=== PATIENT | female | born 1960 | race Caucasian/White ===

== ENCOUNTER 2016-06-08 13:36 | Inpatient (IN) | payer OTHER, MEDICAID ==
[~2016-06-08] VITALS: Ht 172.7 cm; Wt 109.3 kg
[~2016-06-08 13:36] MED LIST: ALBU2.5V4 IH; ALBU8.5H2 IH; AMIL5TAB2 PO; AMPH30TA3 PO; ARIP10TA14 PO; ASCO-294 PO; CALC600T85 PO; CHRO200C PO; CYAN3000 SL; DULO60CA42 PO; FENO48TA4 PO; FLUO40CA12 PO; FLUT16SP NS; FORM12CA IH; FRSM80T PO; HYDR4TAB PO; HYDR50TA3 PO; INSU100I18 SUBQ; INSU500V SQ; INSU500V SUBQ; IPRA3AMP IH; LAMO200T2 PO; LORA10TA7 PO; MULT-1007 PO; NAPH15DR BOTH_EYES; OMEP20TA24 PO; OXYM30SP NS; POTA20PA3 PO; PREG200C PO; PROG200C7 PO; PROP15DR BOTH_EYES; ROPI PO; SIMV80TA4 PO; TIOT18CA3 IH; TOPI50TA88 PO; WARF7.5T4 PO; ZINC50TA4 PO
[2016-06-08 13:55] VITALS: BP 96/66; PULSE 92; RESP 40; O2SAT 100
--- NOTE | 2016-06-08 15:38 | ED.REPORT ---
HPI-Dyspnea / Wheezing Date of Service Jun 08, 2016 ED Provider: Maxi Mccain MD A 55 year old female with a history of asthma, COPD, CHF, diabetes mellitus, upper extremity DVT, restless leg syndrome and diabetic neuropathy presents to the ED complaining of SOB that began approx. one week ago. Associated symptoms include pleuritic chest pain that is exacerbated by cough and deep breath. Patient has taken levothyroxine, one course of Cipro, 20 mg prednisone 1x per day and multiple nebulizer treatments with no relief. Her symptoms have been constant since onset. Patient takes Symbicort regularly. Nursing Notes Stated Complaint: BREATHING ISSUES/CHF Chief Complaint: Respiratory Distress Nursing Notes Reviewed: Yes Allergies: Coded Allergies: Contrast Media (Verified Allergy, Severe, Anaphylaxis, 06/28/14) Sulfa (Sulfonamide Antibiotics) (Verified Allergy, Severe, Rash,Itching, SOB, 06/28/14) iodine (Verified Allergy, Severe, UNSPEC, 06/28/14) topical iodine causes rash ketorolac (Verified Allergy, Severe, 06/28/14) paranoia per pt meperidine (Verified Allergy, Severe, UNSPEC, 06/28/14) paranoia and asthma povidone (Verified Allergy, Severe, 06/28/14) cefazolin sodium (Verified Allergy, Intermediate, Rash,Itching,SOB, ) shellfish derived (Verified Allergy, Unknown, 06/28/14) asthma, rash from food Uncoded Allergies: FRAGRANCES (Allergy, Unknown, 04/17/06) SEAFOOD (Allergy, Unknown, 07/10/03) Scheduled Amphet Asp/Amphet/D-Amphet (Adderall) 30 Mg Tablet 30 MG PO BID Ascorbate Calcium (Vitamin C) 500 Mg Tablet 500 MG PO TID Budesonide/Formoterol 160-4.5 mcg Inh (Symbicort 160-4.5 mcg Inh) 120 Puff Inhaler 2 PUFF INHALATION BID Calcium Carbonate (Caltrate 600) 600 Mg Tablet 600 MG PO DAILY Chromium Picolinate (Chromium Picolinate) 200 Mcg Capsule Unknown Dose PO DAILY Duloxetine (Cymbalta) 60 Mg Capsule.dr 60 MG PO HS Fluoxetine (Prozac) 40 Mg Capsule 40 MG PO QAM Furosemide (Furosemide) 80 Mg Tab 120 MG PO AM Hydrochlorothiazide (Hydrochlorothiazide) 50 Mg Tablet 50 MG PO QAM Insulin Lispro (HumaLOG U100 Insulin Pen) 100 Unit/1 Ml Insuln.pen 5-30 UNIT SUBQ TID-INSULIN sliding scale Insulin Regular, Human (HUMulin-R U-500 Insulin Vial) 500 Unit/1 Ml Vial 0.36 ML SQ with breakfast Insulin Regular, Human (HUMulin-R U-500 Insulin Vial) 500 Unit/1 Ml Vial 0.27 ML SUBQ BIDLS Ipratropium/Albuterol Sulfate (Iprat-Albut 0.5-3(2.5) mg/3 mL Inhalant Soln) 3 Ml Ampul.neb 3 ML IH TID Lamotrigine (Lamotrigine) 200 Mg Tablet 400 MG PO BID Lisdexamfetamine Dimesylate (Vyvanse) 70 Mg Capsule 70 MG PO DAILY Loratadine (Loratadine) 10 Mg Tablet 10 MG PO QAM Multivitamin (Multi-Vitamin Daily) 1 Each Tablet 1 EACH PO DAILY Omeprazole Magnesium (Prilosec Otc) 20 Mg Tablet.dr 40 MG PO BID Potassium Chloride Powder (Klor-Con Powder) 20 Meq Packet 40 MEQ PO TID AM, 3pm, and bedtime. DISSOLVE CONTENTS OF ONE PACKET IN FULL GLASS OF WATER AND DRINK. Pregabalin (Lyrica) 200 Mg Capsule 200 MG PO TID Propylene Glycol/Peg 400 (Systane 0.3-0.4% Eye Drops) 15 Ml Drops 2 DRP BOTH_ EYES Q4-6H Ropinirole (Requip) 3 Mg Tablet 6 MG PO HS Simvastatin (Simvastatin) 80 Mg Tablet 80 MG PO HS Tiotropium [place] (Spiriva) 18 Mcg Cap.w.dev 18 MCG IH HS Topiramate (Topiramate) 50 Mg Tablet 50 MG PO BID Zinc Gluconate (Zinc) 50 Mg Tablet 50 MG PO DAILY Scheduled PRN Albuterol HFA (Proair HFA) 8.5 Gm Hfa.aer.ad 2 PUFFS IH Q4-6H PRN PRN For Shortness of Breath Albuterol Neb Soln (Albuterol Neb Soln) 2.5 Mg/3 Ml Vial.neb 2.5 MG IH Q2 PRN PRN For Shortness of Breath Fenofibrate Nanocrystallized (Fenofibrate) 48 Mg Tablet 48 MG PO AM PRN PRN allergy relief Fluticasone Propionate (Fluticasone Propionate Nasal) 16 Gm Soldier.susp 2 SPRAY NS HS PRN PRN allergy symptoms Naphazoline HCl/Pheniramine (Naphcon-A Eye Drops) 225 Drop/15 Ml Ophsoln 2 DROP BOTH_EYES BID PRN PRN For Eye Irritation Oxymetazoline HCl (Afrin) 30 Ml Soldier 1-2 SPRAY NS BID PRN PRN For Congestion Maxium 3 day use. General Time Seen by MD: 15:36 Chief Complaint Shortness of breath Hx Obtained From: Patient Arrived By: Walk-in Sudden in Onset?: No Onset Occurred: 1 week ago Symptom Duration: Since onset Location: : Chest left: Chest right Quality: Pleuritic Radiation: : Does not radiate Severity: Current: Mild Severity: Maximum: Moderate Associated with: Reports: Chest pain, Cough Pertinent Negative: Pt denies other symptoms Exacerbated by: Cough, Deep breath Pertinent Negative: Relieved by nothing Recent Healthcare: No recent hospitalization, Recent doctor visit Past Medical History Past Medical History Notes: PCP: Dr. Esteban Mitchell Past Medical History 1. Upper extremity DVT secondary to PICC line, treated with warfarin 2. Restless leg syndrome 3. Diabetic neuropathy 4. Diabetes mellitus 5. [place] 6. COPD 7. CHF 8. GERD 9. Bilateral drop foot 10. osteoarthritis 11. Osteomyelitis 12. binasal hemianopsia 13. sleep apnea 14. Admit sepsis from diabetic foot June 2014 15. bipolar disorder 16. Review of seizure disorder Past Surgical History left knee left shoulder Right shoulder x2 laminectomy L4-L5 in 1994 Laminectomy L4-L5 in 2010 Laminectomy C5 C6 C6 09/07/2009, infusion later in 2009 Laminectomy T11-T12 in 2010 Jayce fundoplication 1995 Smoking History Never Smoker Social History Alcohol Use: "Social" Drug Use: Denies drug use Other Social History: Good social support, Local resident Ambulatory Status Independent Review of Systems Constitutional: Denies: Chills, Fever Respiratory: Reports: Non-productive cough, Shortness of breath Cardiovascular: Reports: Chest pain Complete sys rev & neg: except as marked. GI: Denies: Nausea, Vomiting Neurologic: Denies: Change LOC Physical Exam Initial Vital Signs Vital Signs (First) Date Time Temp Pulse Resp B/P Pulse Ox O2 Delivery O2 Flow Rate FiO2 06/08/16 13:55 36.4 92 40 96/66 100 Nasal Cannula 06/08/16 16:25 2 Initial VS: Reviewed Head / Eyes: Atraumatic, Normocephalic, PERRL Extremities: Vascular intact, Neuro intact, No swelling, No tenderness Skin: Warm, Dry, No cyanosis Neurologic: Alert, Oriented, Nonfocal Psychiatric: Mood/affect normal, Behavior normal, Normal thought content General/Constitutional: Awake, Alert Distress / Hydration: Positive: Distress moderate Behavior: Positive: Anxious Neck: Atraumatic, Supple Respiratory / Chest: Atraumatic Wheezing / Retractions: Positive: Wheezing moderate RESPIRATORY: Decreased air movement Cardiovascular: Heart rate NL, Regular rhythm, No gallop, No murmurs, No rubs Heart Sounds / Murmur: Positive: Heart sounds diminished (Distant heart sounds ) ENT: Atraumatic, Airway patent Mouth: Positive: Mucous membranes dry Interpretation & Diagnostics Lab Results Interpretation Result Diagram: 06/08/16 1600 06/08/16 1600 Test 06/08/16 16:00 White Blood Count 16.3th/mm3 (3.8-10.1) Red Blood Count 5.39mil/mm3 (3.90-5.20) Hemoglobin 16.4g/dL (12.0-15.6) Hematocrit 47.5% (35.0-46.0) Mean Corpuscular Volume 88.1fL (81-100) Mean Corpuscular Hemoglobin 30.4pg (27.0-35.0) Mean Corpuscular Hemoglobin Concent 34.5% (32.0-37.0) Red Cell Distribution Width 14.2% (12.3-15.4) Platelet Count 486bil/L (150-400) Neutrophils (%) (Auto) 73.3% (40-74) Lymphocytes (%) (Auto) 15.9% (14-46) Monocytes (%) (Auto) 8.9% (4-12) Eosinophils (%) (Auto) 0.8% (0-5) Basophils (%) (Auto) 0.2% (0-3) Prothrombin Time 10.5sec (8.1-12.5) Prothromb Time International Ratio 0.98ratio D-Dimer < 0.5mg/L FEU (<0.50) Sodium Level 136mEq/L (134-144) Potassium Level 4.3mEq/L (3.5-5.2) Chloride Level 90mEq/L (97-108) Carbon Dioxide Level 29mmol/L (18-29) Blood Urea Nitrogen 16mg/dL (6-24) Creatinine 0.74mg/dL (0.57-1.00) Estimat Glomerular Filtration Rate 118mL/min (>59) Glucose Level 48mg/dL (60-99) Calcium Level 10.0mg/dL (8.5-10.1) Total Bilirubin 0.5mg/dL (0.0-1.2) Aspartate Amino Transf (AST/SGOT) 38U/L (0-50) Alanine Aminotransferase (ALT/SGPT) 47U/L (0-32) Alkaline Phosphatase 91U/L (25-150) Troponin T < 0.010ug/L (0.0-0.011) Pro-B-Type Natriuretic Peptide 60.03pg/mL (0-249) Total Protein 7.9g/dL (6.4-8.4) Albumin 4.5g/dL (3.4-5.0) Triglycerides Level 314mg/dL (0-149) Cholesterol Level 208mg/dL (100-199) LDL Cholesterol, Calculated 98.200mg/dL (0-99) VLDL Cholesterol 62.800mg/dL HDL Cholesterol 47mg/dL (>39) Cholesterol/HDL Ratio 4.43 (0.0-4.4) Procalcitonin 0.14ng/mL (0.00-0.08) Hold Smith Top Tube Received (Received) ECG Interpretation ECG Interpretation: Normal Sinus Rhythm Rate 82 Prolonged QT interval QTc 529 Time: 16:21 Interpreted by: ED physician X-Ray Chest Interpretation Chest Xray Interpretation: IMPRESSION: Other than some subsegmental atelectasis at the right lung base there is no evidence for acute disease. Dictated by: Christian France M.D. on 06/08/2016 at 16:34 Interpretation / Wet Read by: Interpret - Radiologist Re-Eval/Medical Decision Med Decision/Clinical Course 55 year old female with COPD exacerbation failing outpatient management. Given albuterol/atrovent and prednisone to bring today's dose up to 60mg. CHF, pnuemonia, IL considered, evaluation does not support. will admit to hospitalist. Re-Evaluation/Progress : Time of Eval: 17:44 Patient Status: Condition improved Re-Evaluation/Progress Note: Patient is re-evaluated. She is informed of her results and diagnosis. All of the patient's questions are addressed. She understands and agrees with the treatment plan to admit. Consultation : Referral / Consult Name: Ne Lin DO Consulted With: Hospitalist Requested Call at: 19:39 Customer Service Representative: Will see patient, Agrees with eval, Agrees with plan, Accepts admit Counseled Regarding: Diagnosis, Lab results, Need for admission Discharge & Departure Impression: Primary Impression: COPD exacerbation Disposition: ADMITTED TO HOSPITAL Discharge Condition All VS Reviewed: Yes Condition: Stable Referrals: Kevin Mitchell MD (PCP) [place] Attestation Portions of this note were transcribed by Shell Lux. I, Dr. Mccain personally performed the history, physical exam and medical decision-making; I reviewed and confirmed the accuracy of the information in the transcribed note. Signed by: Mirtha Doherty, 06/08/162029. copies to: Kevin Mitchell MD, Donald L MD Jun 08, 2016 15:38 SHELL LUX Jun 08, 2016 15:45
[2016-06-08] MEDS ORDERED: Albuterol-Ipratropium 3 mL Inhalation Solution NEB ONE (15:45)
[2016-06-08 16:11] LABS: BASOPHILS % (AUTO) 0.2 % (0-3); EOSINOPHILS % (AUTO) 0.8 % (0-5); MONOCYTES % (AUTO) 8.9 % (4-12); Mean Corpuscular Hemoglobin 30.4 pg (27.0-35.0); Mean Corpuscular Volume 88.1 fL (81-100); NEUTROPHILS % (AUTO) 73.3 % (40-74); Platelet Count 486 bil/L (150-400)
[2016-06-08 16:25] VITALS: BP 118/74; PULSE 85; RESP 22; O2SAT 99
[2016-06-08 16:37] LABS: D-Dimer < 0.5 mg/L FEU (<0.50); INR 0.98 ratio
--- NOTE | 2016-06-08 16:37 | DRSVH ---
PROCEDURE: X-RAY CHEST ONE VIEW, PORTABLE ([id number]) INDICATIONS: sob TECHNIQUE: One view of the chest was acquired. COMPARISON: [facility], CR, XR CHEST 2VW, 02/01/2015, 17:43. [facility], C R, XR CHEST 2VW, 06/05/2016, 14:28. FINDINGS: Surgical changes and devices: Previous surgery in the cervical thoracic junction posteriorly. The low er left screw is fractured but this is unchanged since older x-rays. Multiple vascular clips are pres ent in the GE junction. compliance monitor leads are seen over the chest. Oxygen tubing is present. Lungs and pleura: No pleural effusions or pneumothorax. There is some subsegmental atelectasis at th e right lung base. The lungs are otherwise considered clear. Mediastinum: Mediastinal contours appear normal. Heart size is normal. Bones and chest wall: No suspicious bony lesions. Overlying soft tissues appear unremarkable. IMPRESSION: Other than some subsegmental atelectasis at the right lung base there is no evidence for acute disease. Dictated by: Christian France M.D. on 06/08/2016 at 16:34 Approved by: Christian France M.D. on 06/08/2016 at 16:36
[2016-06-08 17:31] LABS: TROPONIN T < 0.010 ug/L (0.0-0.011)
[2016-06-08] MEDS ORDERED: 0.9% Sodium Chloride 500 ML IV ONE (17:45)
[2016-06-08] MEDS ORDERED: Albuterol 2.5 mg/3 mL Inhalation Solution NEB ONE (17:45)
[2016-06-08] MEDS ORDERED: predniSONE 20 mg Tablet PO ONE (17:45)
[2016-06-08 17:55] VITALS: PULSE 86; RESP 24; O2SAT 98
[2016-06-08] MEDS ORDERED: Alteplase Dose Per Pharmacist XX ONE (18:40)
[2016-06-08] MEDS ORDERED: LISD70CA2 PO (19:21)
[2016-06-08] MEDS ORDERED: SYMINH INHALATION (19:21)
[2016-06-08 19:58] VITALS: BP 127/85; PULSE 88; RESP 28; O2SAT 100
[2016-06-08] MEDS ORDERED: Albuterol 2.5 mg/3 mL Inhalation Solution NEB PRN ×2 (20:05→22:20)
[2016-06-08] MEDS ORDERED: Polyethylene Glycol (PEG) 17 Gm Powder PO PRN ×2 (20:05→21:25)
[2016-06-08] MEDS ORDERED: Alum-Mag Hydrox-Simeth 30 mL Suspension PO PRN ×2 (20:05→21:25)
[2016-06-08] MEDS ORDERED: Ondansetron 2 mg/mL 2 mL Inj IVPUSH PRN ×2 (20:05→21:25)
[2016-06-08 21:33] VITALS: BP 105/63; PULSE 82; RESP 36; O2SAT 98
[2016-06-08] MEDS ORDERED: Fluticasone 0.05% 15 Spray/2 Gm 16 Gm Nasal Spray NASAL PRN (21:35)
[2016-06-08] MEDS ORDERED: Glucose 40% Oral Gel 15 Gm Tube PO PRN (21:40)
[2016-06-08] MEDS: Insulin LISPRO 300 Unit/3 mL Inj SUBQ SCH (21:43)
--- NOTE | 2016-06-08 21:44 | NUR ---
Admit Patient admitted to [facility]22 at 2140. Respiratory rate 36, reports significant shortness of breath, dry hacking cough with related chest pain 8/10 while coughing. SpO2 94-98% on 2L via nasal cannula. Patient reports that she has been getting nebulizers in the ED but does not feel that they have been helping. Blood glucose 119; patient states she has not eaten all day and was concerned because her reading at home was in the 70s this morning. Patient oriented to room, call light, phone, hospital policies. Admit completed in ED by admit nurse. Continue close monitoring.
--- NOTE | 2016-06-08 21:47 | PCM.HPMED ---
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 She relates that 2 weeks ago she manifested a productive cough and SOB, she went to her PCP who gave her Levaquin and started a Prednisone burst; over the next week her cough became dry and non productive but her SOB continued. She returned to her PCP Dr. Mitchell who extended her Prednisone burst to a taper and told her to seek hospital evaluation if her SOB failed to improve which it has not. She further complains of diffuse pleuritic chest pain when she coughs. She denies hemoptysis, Leg pain, current productive cough, Fevers or chills, nausea, vomiting, or change in bowel or bladder habits. In the ED she was given DuoNeb and Prednisone which resulted in minimal improvement, CXR indicative of right basilar atelectasis and no other acute process; ECG Trop and D-Dimer reassuring. Comprehensive ROS negative except as listed above. Allergies Coded Allergies: Contrast Media (Verified Allergy, Severe, Anaphylaxis, 06/28/14) Sulfa (Sulfonamide Antibiotics) (Verified Allergy, Severe, Rash,Itching, SOB, 06/28/14) iodine (Verified Allergy, Severe, UNSPEC, 06/28/14) topical iodine causes rash ketorolac (Verified Allergy, Severe, 06/28/14) paranoia per pt meperidine (Verified Allergy, Severe, UNSPEC, 06/28/14) paranoia and asthma povidone (Verified Allergy, Severe, 06/28/14) cefazolin sodium (Verified Allergy, Intermediate, Rash,Itching,SOB, ) shellfish derived (Verified Allergy, Unknown, 06/28/14) asthma, rash from food Uncoded Allergies: FRAGRANCES (Allergy, Unknown, 04/17/06) SEAFOOD (Allergy, Unknown, 07/10/03) PMH Asthma COPD CHF DM2 with neuropathy Upper Extremity DVT following PICC RLS Surgical History left knee left shoulder Right shoulder x2 laminectomy L4-L5 in 1994 Laminectomy L4-L5 in 2010 Laminectomy C5 C6 C6 09/07/2009, infusion later in 2009 Laminectomy T11-T12 in 2010 Jayce fundoplication 1995 Family History Diabetes in multiple relatives Social History Hx Alcohol Use: No Hx Substance Use: No Hx Tobacco Use: No Smoking Status: Never Smoker Exam Vital Signs Vital Sign - Last Date Time Temp Pulse Resp B/P Pulse Ox O2 Delivery O2 Flow Rate FiO2 06/08/16 19:58 36.9 88 28 127/85 100 Nasal Cannula 2 Exam Gen: A/O x3 pleasant cooperative obese woman in moderate acute distress secondary to cough and pleuritic chest pain Neck: Large bull neck, supple, non tender, no JVD, Full ROM HEENT: PERRL, EOMI, mucous membranes dry, no scleral icterus, no conjunctival pallor Lymph: No lymphadenopathy, no cervical or supraclavicular tenderness CV: RRR, no murmurs rubs or gallops, distant heart sounds likely secondary to habitus Resp: Tachypnea with rate approx 30, diffuse moderate expiratory wheezing, no rales or rhonchi Abdomen: Obese, soft, non tender, no organomegaly Extr: No cyanosis clubbing or edema. High frequency low amplitude tremor of BL UE R>L Musculo Skeletal: Obese, normal muscle tone Neuro: CN 2-12 grossly intact, no focal neurologic deficit; Lab and Diagnostics Labs Item Value Date Time Calcium Level 10.0 mg/dL 06/08/16 1600 Total Bilirubin 0.5 mg/dL 06/08/16 1600 Aspartate Amino Transf (AST/SGOT) 38 U/L 06/08/16 1600 Alanine Aminotransferase (ALT/SGPT) 47 U/L H 06/08/16 1600 Alkaline Phosphatase 91 U/L 06/08/16 1600 Troponin T < 0.010 ug/L 06/08/16 1600 Pro-B-Type Natriuretic Peptide 60.03 pg/mL 06/08/16 1600 Total Protein 7.9 g/dL 06/08/16 1600 Albumin 4.5 g/dL 06/08/16 1600 Red Blood Count 5.39 mil/mm3 H 06/08/16 1600 Neutrophils (%) (Auto) 73.3 % 06/08/16 1600 Lymphocytes (%) (Auto) 15.9 % 06/08/161599 Prothrombin Time 10.5 sec 06/08/16 1600 Prothromb Time International Ratio 0.98 ratio 06/08/16 1600 D-Dimer < 0.5 mg/L FEU 06/08/16 1600 Result Diagram: 06/08/16 1600 06/08/161599 X-Rays, CTs and MRIs X-RAY CHEST ONE VIEW, PORTABLE IMPRESSION: Other than some subsegmental atelectasis at the right lung base there is no evidence for acute disease. Dictated by: Christian France M.D. on 06/08/2016 at 16:34 Approved by: Christian France M.D. on 06/08/2016 at 16:36 . 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 Patient with likely COPD exacerbation secondary to resolved infectious process; D-Dimer negative thus PE less likely Wells score 1.5. 1. COPD exacerbation without hypoxemia, present on admission, acute on chronic. Active - Likely secondary to now resolved infectious process - DuoNeb q4 - Solu-Medrol 125 mg Q8, may convert back to prednisone taper if symptoms improve - Supplemental O2 - Patient uses Cpap for KENAN at home in the evenings, given extent of respiratory effort Bipap was used overnight - Leukocytosis likely secondary to Steroid, CXR not indicative of infectious process, no productive cough and afebrile thus ongoing infectious etiology less likely - PE less likely, Wells 1.5 and D-Dimer negative 2. Diabetes Mellitus with neuropathy and Nephropathy, present on admission, chronic. Active - Last A1c 05/07/16 13.6 - Currently Hypoglycemic so basal insulin held, Lispro High dose sliding scale - Current low BG likely secondary to poor PO intake, may need to re-institute basal bolus dosing once appetite recovers - Diabetic constant carb diet - Continue home Lyrica - Avoid Nephrotoxic meds if possible - Serial BG monitoring 3. Depression and anxiety, present on admission, chronic. Stable - Held home Cymbalta and Fluoxetine for prolonged QT - Continue Home Lamotrigine 4. History of UE DVT - Heparin 5k U SubQ Q8 5. Leukocytosis, present on admission, acute. Active - Likely secondary to recent Prednisone burst - Recent course of antibiotics, no productive cough fevers or chills - CXR no indicative of acute infection - Procalc pending 6. Pleuritic chest pain, present on admission, acute. Active - ECG, Trop, D-Dimer, CXR all reassuring for no acute occlusive process - Likely secondary to prolonged cough and COPD exacerbation - Tylenol 625 for pain, Morphine PRN ordered should this prove ineffective: monitor for respiratory depression if used 7. Chronic nasal congestion, present on admission, chronic. Active - Continue home Afrin Other chronic conditions managed with Home meds Hyperlipidemia: Continue home Simvastatin, lipid panel pending ADD/ADHD: Holding home stimulants Mild CHF with fluid retention: Continue Home Lasix RLS: continue home Ropinirole Bowel prophylaxis CODE STATUS: FULL CODE, healthcare directive in place indicating no prolonged mechanical ventilation Disposition: Observation; may convert to inpatient status if the patient does not adequately respond to treatment plan. Pain Evaluation: Adequate Pain Control GI Prophylaxis: H2 arden VTE Prophylaxis: Sub-Q Heparin (Unfractionated) Resuscitation Status: CPR: Attempt Resuscitation Attending Statement The patient was seen and examined together with house staff on 06/09/2016 and I agree with the history, exam and plan as outlined in the note above. Chicho Melchor DO Jun 08, 2016 21:47 Ne Lin DO Jun 09, 2016 02:53
[2016-06-08] MEDS ORDERED: Artificial Tears 15 mL Ophthalmic Solution BOTH_EYES PRN (22:05)
[2016-06-09] VITALS (14 sets, daily range): BP systolic 101–124; BP diastolic 64–78; PULSE 71–98; RESP 18–31; O2SAT 92–98
[2016-06-09] MEDS: Heparin 5,000 Unit/mL Inj SUBQ SCH ×3 (00:26→17:45)
[2016-06-09] MEDS ORDERED: MethylprednisoLONE Sodium Succinate 62.5 mg/mL 2 mL Inj IVPUSH SCH ×2 (00:30→08:30)
[2016-06-09] MEDS: Codeine-guaiFENesin 10 mL Syrup PO PRN ×2 (01:13→10:26)
[2016-06-09 04:07] LABS: BASOPHILS % (AUTO) 0.1 % (0-3); EOSINOPHILS % (AUTO) 0 % (0-5); MONOCYTES % (AUTO) 1.2 % (4-12); Mean Corpuscular Hemoglobin 30.4 pg (27.0-35.0); Mean Corpuscular Volume 90.2 fL (81-100); Platelet Count 340 bil/L (150-400)
[2016-06-09 04:27] LABS: Magnesium 2.3 mg/dL (1.6-2.6); Phosphorus 4.5 mg/dL (2.5-4.9)
--- NOTE | 2016-06-09 05:47 | NUR ---
Respiratory Patient placed on BiPAP overnight due to low pO2 and elevated CO2 and increased work of breathing. Patient slept for several hours with BiPAP on, but woke with headache and facial pain from BiPAP mask. Switched back to oxymask with 2L at 0540. Scattered wheezes heard throughout the lung giraldo. Patient reports still feeling "tight." Tylenol given for headache. Continue to monitor.
--- NOTE | 2016-06-09 07:21 | DRSVH ---
PROCEDURE: X-RAY CHEST ONE VIEW, PORTABLE ([id number]) INDICATIONS: SOB TECHNIQUE: One view of the chest was acquired. COMPARISON: None. FINDINGS: Surgical changes and devices: Surgical clips project in the upper abdomen. Partially visualized cervi iker spine fixation hardware Lungs and pleura: No pleural effusions or pneumothorax. Mild bibasilar atelectasis. No focal consol idation Mediastinum: Mediastinal contours appear normal. Heart size is normal. Bones and chest wall: No suspicious bony lesions. Overlying soft tissues appear unremarkable. IMPRESSION: No acute disease. Mild scattered bibasilar atelectasis Dictated by: Emory Brown M.D. on 06/09/2016 at 7:19 Approved by: Emory Brown M.D. on 06/09/2016 at 7:19
[2016-06-09] MEDS: lamoTRIgine 100 mg Tablet PO SCH ×2 (08:34→20:44)
[2016-06-09] MEDS: Pantoprazole 40 mg ER24 Tablet PO SCH ×2 (08:37→20:44)
[2016-06-09] MEDS: Insulin LISPRO 300 Unit/3 mL Inj SUBQ SCH ×4 (08:54→22:21)
[2016-06-09] MEDS: Albuterol-Ipratropium 3 mL Inhalation Solution NEB PRN (08:58)
--- NOTE | 2016-06-09 10:53 | NUR ---
Cough Pt presenting with hacking bronchospastic cough, called RT for treatment. Notified MD. Administered Robitussin AC PRN. Care continues.
--- NOTE | 2016-06-09 11:31 | NUR ---
Social Work-screening: Data:EMR reviewed. Pt is a 55 y/o female who was admitted on 06/08/16 for COPD exacerbation per H&P. Pt's insurance is gauzz and [facility] and PCP is Reggie Mitchell MD. EMR Reviewed. SW met with pt to discuss discharge planning, SW role explained. Pt is alert and oriented x3. Pt resides at home in [place] with her and 16 y/o daughter. Pt does not drive and uses a fww at baseline. Pt has had Home infusion prior through [facility], but no HH. Pt has history at [facility]. Pt has no rn long term care care or VA benefits. SW discussed DPOA/ advanced directive, pt states she has completed this, SW encouraged a copy to be brought in. Pt uses home O2 and c-pap through [facility]. Pt states that her will provide transport home at discharge. Pt feels like she has enough help at home.R/O HH services. SW provided phone number and plan on white board in room. SW will continue to follow. Assessment:Pt who is independent at baseline. Plan:Pt to discharge home when medically stable via POV. R/O HH services. SW will continue to follow. SVETLANA Roldan
--- NOTE | 2016-06-09 12:48 | NUR ---
Blood Glucose 0854 BG 374 12 units Lispro 1248 BG 508 12 units Lispro. notified. Care continues.
[2016-06-09] MEDS ORDERED: Insulin LISPRO 300 Unit/3 mL Inj SUBQ ONE (13:09)
--- NOTE | 2016-06-09 15:36 | PCM.PNMED ---
Subjective Date of Service Jun 09, 2016 Subjective Patient doing about the same this morning, no significant change. Coughing is ongoing, maybe slightly improved. Not coughing anything up. Her chest pain, nausea vomiting, diarrhea or constipation Exam Vital Signs Vital Sign - Last Date Time Temp Pulse Resp B/P Pulse Ox O2 Delivery O2 Flow Rate FiO2 06/09/16 12:51 37.1 20 121/72 96 Nasal Cannula 2.00 06/09/16 09:00 50 06/09/16 08:59 93 Intake and Output 06/08/16 06/08/16 06/09/16 Cumulative From/Thru 15:00 23:00 07:00 06/08/16 13:55 - 06/09/16 06:11 Intake Total 820 ml 820 ml Output Total 450 ml 450 ml Balance 370 ml 370 ml Intake Oral 800 ml 800 ml IV Total 20 ml 20 ml Output Urine Total 450 ml 450 ml Exam General: Alert, Oriented X3, mild distress. Head: Normocephalic, atraumatic Eyes: [place], EOMI, no scleral Icterus Chest:Decreased breath sounds throughout, coarse breath sounds Heart: Regular rate and rhythm. Normal S1, S2, no murmurs noted Abdomen: soft, non-tender. Bowel sounds are normoactive. No guarding or rebound. Extremities: no cyanosis, clubbing or edema. Restless legs, continual movement. Tremors upper extremities IVs and Medications Medications Reviewed: Medications were reviewed in detail Lab and Diagnostics Result Diagram: 06/09/16 0330 06/09/16 0330 X-Rays, CTs and MRIs X-RAY CHEST ONE VIEW, PORTABLE IMPRESSION: Other than some subsegmental atelectasis at the right lung base there is no evidence for acute disease. Dictated by: Christian France M.D. on 06/08/2016 at 16:34 Approved by: Christian France M.D. on 06/08/2016 at 16:36 . 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 Patient with likely COPD exacerbation secondary to resolved infectious process; D-Dimer negative thus PE less likely Wells score 1.5. She has failed a course of steroids as an outpatient. 1. COPD exacerbation without hypoxemia, present on admission, acute on chronic. Active - Likely secondary to now resolved infectious process - DuoNeb q4 - Solu-Medrol 125 mg Q8, may convert back to prednisone taper if symptoms improve - Supplemental O2 as needed - Patient uses Cpap for KENAN at home in the evenings, given extent of respiratory effort Bipap was used overnight - Leukocytosis likely secondary to Steroid, CXR not indicative of infectious process, no productive cough and afebrile thus ongoing infectious etiology less likely - D-dimer negative 2. Diabetes Mellitus with neuropathy and Nephropathy, present on admission, chronic. Active - Last A1c 05/07/16 13.6 -High dose sliding scale insulin. Blood sugars have been labile likely secondary to steroids. -She takes large doses of U500 insulin. I will start her on NPH 40 units twice a day, this will likely need to be increased 3. Depression and anxiety, present on admission, chronic. Stable - Held home Cymbalta and Fluoxetine for prolonged QT - Continue Home Lamotrigine 4. History of UE DVT - Heparin 5k U SubQ Q8 5. Leukocytosis, present on admission, acute. Active - Likely secondary to recent Prednisone burst - Recent course of antibiotics, no productive cough fevers or chills 6. Pleuritic chest pain, present on admission, acute. Active - ECG, Trop, D-Dimer, CXR all reassuring for no acute occlusive process - Likely secondary to prolonged cough and COPD exacerbation - Tylenol 625 for pain, Morphine PRN ordered should this prove ineffective: monitor for respiratory depression if used 7. Chronic nasal congestion, present on admission, chronic. Active - Continue home Afrin 8. Restless leg syndrome -Continue ropinirole, follow electrolytes and correct as needed Other chronic conditions managed with Home meds Hyperlipidemia: Continue home Simvastatin, lipid panel pending ADD/ADHD: Holding home stimulants Mild CHF with fluid retention: Continue Home Lasix Bowel prophylaxis CODE STATUS: Full code DVT prophylaxis: Heparin 3 times a day Disposition: Pending hospital course GI Prophylaxis: H2 arden VTE Prophylaxis: Sub-Q Heparin (Unfractionated) VTE Mechanical Devices: Intermittant Pneumatic CD Resuscitation Status: CPR: Attempt Resuscitation Jarad Solomon DO Jun 09, 2016 15:36
--- NOTE | 2016-06-09 19:36 | NUR ---
Blood Glucose/cough/AMA/Weepy 1739 BG 455. notified. 12 units Lispro given per . Pt has intermittent hacking cough, offered Robitussin and cepacol. Pt eating dinner asked to have after dinner. Passed on to funnel setter. Pt wanting to leave AMA, stated she does not feel anything is being done to help her. Listened and encouraged pt. Pt choosing to stay for now. Pt very weepy during coughing spells, states she can not handle the pain. States nothing seems to be helping. RT called several times, gave neb treatments, coached pt on breathing exercises. This RN administered one dose of morphine and Robitussin this shift. Brought several cups of ice, repositioned bed from laying at 10 degrees, educated pt about positioning. Pt understood. Pt weepy and crying most of day shift between napping. Continuous interaction with RN for support and care. Addendum: 06/09/16 at 2001 by DANK MCKEON RN notified
[2016-06-09] MEDS ORDERED: [UNRECOGNIZED DRUG - OTHER] PO SCH (20:30)
[2016-06-09] MEDS ORDERED: Amphetamines (Mixed) 10 mg Tablet PO SCH (20:36)
[2016-06-09] MEDS: Benzocaine-Menthol Lozenge 2/Pkg PO PRN (20:45)
[2016-06-09] MEDS ORDERED: DULoxetine 30 mg DR Capsule PO SCH (21:00)
[2016-06-09] MEDS: Amphetamines (Mixed) 10 mg Tablet PO SCH (21:37)
[2016-06-10] VITALS (8 sets, daily range): BP systolic 102–132; BP diastolic 62–77; PULSE 75–100; RESP 16–24; O2SAT 92–94
[2016-06-10] MEDS: Heparin 5,000 Unit/mL Inj SUBQ SCH ×3 (01:03→18:11)
[2016-06-10] MEDS: Codeine-guaiFENesin 10 mL Syrup PO PRN ×4 (01:08→19:44)
[2016-06-10 04:22] LABS: BASOPHILS % (AUTO) 0.1 % (0-3); EOSINOPHILS % (AUTO) 0.2 % (0-5); MONOCYTES % (AUTO) 7.2 % (4-12); Mean Corpuscular Hemoglobin 30.6 pg (27.0-35.0); Mean Corpuscular Volume 90.3 fL (81-100); NEUTROPHILS % (AUTO) 77.9 % (40-74); Platelet Count 362 bil/L (150-400)
--- NOTE | 2016-06-10 06:29 | NUR ---
Respiratory/Sleep Patient sleeping for most of shift. Infrequent coughing during wakeful periods; dry, tight cough with episodes of tearfulness associated with coughing. Cepacol and guaifenesin-codeine given with moderate improvement. Patient using her home CPAP overnight after RT set up. Continue to monitor.
[2016-06-10] MEDS ORDERED: Insulin Human NPH 100 Unit/mL 3 mL Inj SUBQ SCH (07:30)
[2016-06-10] MEDS ORDERED: Insulin Human NPH 100 Unit/mL Syringe SUBQ SCH (07:30)
[2016-06-10] MEDS ORDERED: predniSONE 20 mg Tablet PO SCH (08:30)
[2016-06-10] MEDS: Insulin LISPRO 300 Unit/3 mL Inj SUBQ SCH ×4 (08:33→22:04)
[2016-06-10] MEDS: lamoTRIgine 100 mg Tablet PO SCH ×2 (08:36→20:49)
[2016-06-10] MEDS: Pantoprazole 40 mg ER24 Tablet PO SCH ×2 (08:37→20:49)
[2016-06-10] MEDS: Benzocaine-Menthol Lozenge 2/Pkg PO PRN ×4 (08:39→19:44)
[2016-06-10] MEDS: Amphetamines (Mixed) 10 mg Tablet PO SCH ×2 (08:43→20:48)
[2016-06-10] MEDS: Albuterol-Ipratropium 3 mL Inhalation Solution NEB PRN (09:23)
--- NOTE | 2016-06-10 16:53 | NUR ---
Cough Pt has a dry cough which has not been productive since admit till this am. She coughed up yellow/costa thick mucus. Administered Lozenges and Cough syrup Q2-Q4, pt stating seems to help. Pain in chest during coughing.
--- NOTE | 2016-06-10 17:09 | PCM.PNMED ---
Subjective Date of Service Jun 10, 2016 Subjective Patient resting in bed, she states her breathing is slightly better today but she still coughing quite a bit. No chest pain, nausea vomiting or abdominal pain. Exam Vital Signs Vital Sign - Last Date Time Temp Pulse Resp B/P Pulse Ox O2 Delivery O2 Flow Rate FiO2 06/10/16 16:11 36.6 96 18 127/76 93 Nasal Cannula 2.00 06/09/16 09:00 50 Intake and Output 06/09/16 06/09/16 06/10/16 Cumulative From/Thru 15:00 23:00 07:00 06/08/16 13:55 - 06/10/16 06:13 Intake Total 1990 ml 330 ml 3140 ml Output Total 1220 ml 0 ml 1670 ml Balance 770 ml 330 ml 1470 ml Intake Oral 1980 ml 300 ml 3080 ml IV Total 10 ml 30 ml 60 ml Output Urine Total 1220 ml 0 ml 1670 ml # Bowel Movements 1 0 1 Exam General: Alert, Oriented X3, no distress Head: Normocephalic, atraumatic Eyes: [place], EOMI, no scleral Icterus Chest:Decreased breath sounds throughout, coarse breath sounds. Occasional wheeze Heart: Regular rate and rhythm. Normal S1, S2, no murmurs noted Abdomen: soft, non-tender. Bowel sounds are normoactive. No guarding or rebound. Extremities: no cyanosis, clubbing or edema. Restless legs, continual movement. Tremors upper extremities IVs and Medications Medications Reviewed: Medications were reviewed in detail Lab and Diagnostics Result Diagram: 06/10/16 0350 06/10/16 0350 X-Rays, CTs and MRIs X-RAY CHEST ONE VIEW, PORTABLE IMPRESSION: Other than some subsegmental atelectasis at the right lung base there is no evidence for acute disease. Dictated by: Christian France M.D. on 06/08/2016 at 16:34 Approved by: Christian France M.D. on 06/08/2016 at 16:36 . 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 Patient with likely COPD exacerbation secondary to resolved infectious process; D-Dimer negative thus PE less likely Wells score 1.5. She has failed a course of steroids as an outpatient. 1. COPD exacerbation without hypoxemia, present on admission, acute on chronic. Active - Likely secondary to now resolved infectious process - DuoNeb q4 - Solu-Medrol 125 mg Q8 given initially, now on 60 mg daily prednisone - Supplemental O2 as needed - Patient uses Cpap for KENAN at home in the evenings, given extent of respiratory effort Bipap was used overnight - Leukocytosis likely secondary to Steroid, CXR not indicative of infectious process, no productive cough and afebrile thus ongoing infectious etiology less likely - D-dimer negative -Uncontrollable coughing, on Mucinex with codeine as well as Cepacol lozenges. 2. Diabetes Mellitus with neuropathy and Nephropathy, present on admission, chronic. Active - Last A1c 05/07/16 13.6 -High dose sliding scale insulin. Blood sugars have been labile likely secondary to steroids. -She takes large doses of U500 insulin. Started 40 units of NPH twice a day, increase to 55 units today. Will likely need to be increased more 3. Depression and anxiety, present on admission, chronic. Stable - Held home Cymbalta and Fluoxetine for prolonged QT - Continue Home Lamotrigine 4. History of UE DVT - Heparin 5k U SubQ Q8 5. Leukocytosis, present on admission, acute. Active - Likely secondary to recent Prednisone burst - Recent course of antibiotics, no productive cough fevers or chills 6. Pleuritic chest pain, present on admission, acute. Active - ECG, Trop, D-Dimer, CXR all reassuring for no acute occlusive process - Likely secondary to prolonged cough and COPD exacerbation - Tylenol 625 for pain, Morphine PRN ordered should this prove ineffective: monitor for respiratory depression if used 7. Chronic nasal congestion, present on admission, chronic. Active - Continue home Afrin 8. Restless leg syndrome -Continue ropinirole, follow electrolytes and correct as needed Other chronic conditions managed with Home meds Hyperlipidemia: Continue home Simvastatin, lipid panel pending ADD/ADHD: Patient insisted Adderall be restarted Mild CHF with fluid retention: Continue Home Lasix Bowel prophylaxis CODE STATUS: Full code DVT prophylaxis: Heparin 3 times a day Disposition: Pending hospital course GI Prophylaxis: H2 arden VTE Prophylaxis: Sub-Q Heparin (Unfractionated) VTE Mechanical Devices: Intermittant Pneumatic CD Resuscitation Status: CPR: Attempt Resuscitation Jarad Solomon DO Jun 10, 2016 17:09
[2016-06-10] MEDS: Insulin Human NPH 100 Unit/mL Syringe SUBQ SCH (18:19)
[2016-06-11] MEDS: Heparin 5,000 Unit/mL Inj SUBQ SCH ×2 (01:06→08:30)
[2016-06-11] MEDS: Benzocaine-Menthol Lozenge 2/Pkg PO PRN ×3 (02:13→13:57)
[2016-06-11] MEDS: Codeine-guaiFENesin 10 mL Syrup PO PRN ×3 (02:13→13:57)
[2016-06-11 03:09] VITALS: BP 118/72; PULSE 80; RESP 16; O2SAT 96
--- NOTE | 2016-06-11 03:46 | NUR ---
Cough/Tele/Pain Persistent dry cough/ gave Robitussin w codeine x2 and cepacol lozenge x2, C/O pain in chest with cough, 2 Liter O2 per NC , Saline locked , rt AC. . One touch HS 393, gave 10 units Sliding scale. , A&O x3 using call light appropriately Tele ST 80-90
[2016-06-11 04:25] VITALS: PULSE 81
[2016-06-11 05:12] LABS: BASOPHILS % (AUTO) 0.4 % (0-3); EOSINOPHILS % (AUTO) 3.7 % (0-5); MONOCYTES % (AUTO) 9.5 % (4-12); Mean Corpuscular Hemoglobin 30.2 pg (27.0-35.0); Mean Corpuscular Volume 88.7 fL (81-100); NEUTROPHILS % (AUTO) 57.6 % (40-74); Platelet Count 269 bil/L (150-400)
[2016-06-11] MEDS ORDERED: predniSONE 20 mg Tablet PO SCH (08:30)
[2016-06-11] MEDS: Amphetamines (Mixed) 10 mg Tablet PO SCH (08:30)
[2016-06-11] MEDS: lamoTRIgine 100 mg Tablet PO SCH (08:31)
[2016-06-11] MEDS: Pantoprazole 40 mg ER24 Tablet PO SCH (08:32)
[2016-06-11] MEDS: Insulin Human NPH 100 Unit/mL Syringe SUBQ SCH (08:37)
[2016-06-11] MEDS: Insulin LISPRO 300 Unit/3 mL Inj SUBQ SCH ×2 (08:38→12:54)
[2016-06-11 08:45] VITALS: BP 115/73; PULSE 80; RESP 18; O2SAT 97
[2016-06-11] MEDS: Albuterol-Ipratropium 3 mL Inhalation Solution NEB PRN (10:01)
[2016-06-11 10:02] VITALS: PULSE 92; RESP 24; O2SAT 94
[2016-06-11] MEDS ORDERED: Potassium Chloride 20 mEq SR Tablet PO ONE (10:15)
--- NOTE | 2016-06-11 10:22 | PCM.DIMED ---
Discharge Instructions Date of Service Jun 11, 2016 Dates of Hospitalization Jun 08, 2016 at 20:10 Discharge Diagnosis Discharge Diagnosis 1. COPD exacerbation 2. Acute on chronic hypoxic respiratory failure. 2. 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 Depression 4. Remote arm DVT 5. Restless leg syndrome Diet Diabetic Activity Limited until seen by PCP Call your provider Fever or Chills, Shortness of breath, Chest pain Patient Instructions Dr Jones June 12 as scheduled. Chivo Peterson MD Jun 11, 2016 10:22
[2016-06-11] MEDS ORDERED: GUAI120L57 PO (10:26)
--- NOTE | 2016-06-11 12:07 | DRSVH ---
[facility] [address] [place] [address] Echocardiogram Report Name: JAILENE LOBATO EStudy Date : 06/11/2016 Height: 68 in Hospital Exam Location: [facility] Weight: 241 lb Gender: Female BSA: 2.2 m2 : 1960 Age: 55 yrs BP: 118/72 mmHg Reason For Study: RESPIRATORY FAILURE History: COPD Ordering Physician: HOSPITALIST [facility] Performed By: eNlli Mccrary Referring Physician: Dr. Reggie Mitchell Interpretation Summary The study quality was technically difficult. The ejection fraction is estimated to be 60-65%. The right ventricle grossly appears normal in size with probable normal systolic function. There is no significant valvular heart disease. Compared to the prior echo report on 2014, there is no significant change. Procedure: A two-dimensional transthoracic echocardiogram with color flow and Doppler was performed. The study quality was technically difficult. Comparison is made with the echocardiogram of 06/28/2014. The patient was in sinus tachycardia with heart rates between 98-103 bpm during the exam. Left Ventricle: The left ventricle is normal in size. The ejection fraction is estimated to be 60-65%. There are no obvious focal wall motion abnormalities noted but poor endocardial definition reduces the sensitivity for the detection of such. Assessment of diastolic parameters indicates normal left ventricular diastolic function and normal filling pressures. Right Ventricle: The right ventricle grossly appears normal in size with probable normal systolic function. Atria: The left atrial size is normal. The right atrium grossly appears normal in size. There is no Doppler evidence for an interatrial shunt. Mitral Valve: The mitral valve is normal in structure and function. There is no mitral regurgitation noted. Aortic Valve: The aortic valve is not well visualized. There is no aortic valve stenosis. No aortic regurgitation is present. Tricuspid Valve: The tricuspid valve is not well visualized, but is grossly normal. No tricuspid regurgitation. Pulmonic Valve: The pulmonic valve is not well visualized. Great Vessels: The aortic root is normal size. The ascending aorta could not be visualized. The inferior vena cava was not visualized. Pericardium/ Pleura There is a trivial pericardial effusion noted. MMode/2D Measurements & Calculations LVIDd: 4.8 cm LA A2 area LVOT diam LV martin. diameter/BSA LVIDs: 3.3 cm (cm/m^2): 2.2 FS: 31.3 % Ao root IVSd: 1.1 cm LA A4 area diam: 3.1 cm LVPWd: 1.1 cm LA length (vol) LA vol: 50.8 ml LA vol index : 23.0 ml/m2 LV sys. diameter/BSA RVD1 (basal) (cm/m^2): 1.5 Doppler Measurements & Calculations Ao V2 max MV E max kris MV E/A: 1.2 PA V2 max : 165.5 cm/sec : 79.2 cm/sec Med Peak E' Kris : 112.1 cm/sec Ao max PG MV A max kris PA mean PG : 11.0 mmHg : 68.8 cm/sec E/E' med: 9.2 Ao mean PG MV P1/2t: 48.8 msec Lat Peak E' Kris PA Accel Time : 0.07 sec LVOT Max Kris E/E' lat: 5.9 : 140.1 cm/sec E/e' average: 7.6 Pulm A Revs Dur SANDEEP(I,D): 2.8 cm sev ratio MV dec time MV P1/2t max kris Ao V2 mean LV V1 max PG : 0.17 sec : 114.0 cm/sec MVA(P1/2t): 4.5 cm2 Ao V2 VTI: 27.0 cm LV V1 VTI SANDEEP(V,D): 3.0 cm2 : 21.4 cm PA V2 mean SANDEEP indexed to BSA : 77.1 cm/sec (cm^2/m^2): 1.2 Electronically signed by: Jevon Ojeda on Reading Physician:06/11/2016 12:06 PM
[2016-06-11 12:15] VITALS: BP 161/94; PULSE 104; RESP 20; O2SAT 92
[2016-06-11 12:55] VITALS: PULSE 80
--- NOTE | 2016-06-11 14:08 | NUR ---
Social Work Note: Discharge Data& Assessment: Per pt is medically ready for discharge. Yolis Ornelas is a 55 year old female admitted on 06/08/2016 for COPD exacerbation. Per pt is medically improved and ready for discharge. SW met with pt at bedside to confirm discharge plan and assess for any unmet needs. SW and pt discussed home health services, pt feels she is at her baseline ambulation and respiratory status and declines any home health at this time. Pt understands that she can go to her PCP in the community if she changes her mind after discharge. Pt transporting pt home. Pt denies any other needs. No other discharge needs identified. All updated and agreeable to plan. Plan: Per pt is medically improved and ready to discharge home via POV. Pt declines any additional resources or needs. No other discharge needs identified. All updated and agreeable to plan. SVETLANA Neal
--- NOTE | 2016-06-11 15:24 | NUR ---
Discharge Pt discharged at 1520. She was given discharge instructions and instructions for follow up care. She was given hard copies of prescriptions to take with her. She confirmed understanding of her discharge instructions. Her family was present at the bedside. She left via wheelchair with unit staff, taken to the exit where her would picking her up and driving her home.
--- NOTE | 2016-06-12 13:11 | PCM.DC.MED ---
Discharge Summary Date of Service Jun 11, 2016 Dates of Hospitalization Date of Hospital Admission Jun 08, 2016 at 20:10 Date of Discharge: Jun 11, 2016 Providers: Admitting Physician: Ne Lin DO Primary Care Physician: Kevin Mitchell MD Attending Physician: Ne Lin DO Diagnosis at Time of Discharge Diagnosis at Time of Discharge 1. COPD exacerbation 2. Acute on chronic hypoxic respiratory failure. 2. 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 Depression 4. Remote arm DVT 5. Restless leg syndrome Consultations None Procedures XRay, CTs & MRIs X-RAY CHEST ONE VIEW, PORTABLE IMPRESSION: Other than some subsegmental atelectasis at the right lung base there is no evidence for acute disease. Dictated by: Christian France M.D. on 06/08/2016 at 16:34 Approved by: Christian France M.D. on 06/08/2016 at 16:36 . ECG 12 Lead Normal sinus rhythm with no changes Cardiac Echo Impression Interpretation Summary The study quality was technically difficult. The ejection fraction is estimated to be 60-65%. The right ventricle grossly appears normal in size with probable normal systolic function. There is no significant valvular heart disease. Compared to the prior echo report on 2014, there is no significant change. 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 She relates that 2 weeks ago she manifested a productive cough and SOB, she went to her PCP who gave her Levaquin and started a Prednisone burst; over the next week her cough became dry and non productive but her SOB continued. She returned to her PCP Dr. Mitchell who extended her Prednisone burst to a taper and told her to seek hospital evaluation if her SOB failed to improve which it has not. She further complains of diffuse pleuritic chest pain when she coughs. She denies hemoptysis, Leg pain, current productive cough, Fevers or chills, nausea, vomiting, or change in bowel or bladder habits. In the ED she was given DuoNeb and Prednisone which resulted in minimal improvement, CXR indicative of right basilar atelectasis and no other acute process; ECG Trop and D-Dimer reassuring. Comprehensive ROS negative except as listed above. Hospital Course Yolis Ornelas is a 55 year old woman with a PMH of Asthma, COPD, DM2 on insulin with nephropathy and neuropathy who presents with a 2 week history of SOB, initially with productive cough which has since resolved with Levaquin and is now a dry cough. Patient with likely COPD exacerbation secondary to resolved infectious process; D-Dimer negative thus PE less likely Wells score 1.5. She has failed a course of steroids as an outpatient. #. COPD exacerbation without hypoxemia, present on admission, acute on chronic. Active - Likely secondary to now resolved infectious process - DuoNeb q4 - Solu-Medrol 125 mg Q8 given initially, now on 60 mg daily prednisone - Supplemental O2 as needed - Patient uses Cpap for KENAN at home in the evenings, given extent of respiratory effort Bipap was used overnight - Leukocytosis likely secondary to Steroid, CXR not indicative of infectious process, no productive cough and afebrile thus ongoing infectious etiology less likely - D-dimer negative -Uncontrollable coughing, on Mucinex with codeine as well as Cepacol lozenges. This improved to some degree during hospitalization. The day of discharge she felt well enough to return home and in fact requested discharge home. #. Diabetes Mellitus with neuropathy and Nephropathy, present on admission, chronic. Active - Last A1c 05/07/16 13.6 -High dose sliding scale insulin. Blood sugars have been labile likely secondary to steroids. -She takes large doses of U500 insulin. Started 40 units of NPH twice a day, increase to 55 units today. Will likely need to be increased more She had marginal control during her hospitalization but does have a high insulin strategy at home which includes dosages of insulin scale to her blood sugars. She notes that it is not uncommon for her to be over 300. She will continue to use her usual strategy to mitigate hyperglycemia. #. Depression and anxiety, present on admission, chronic. Stable - Held home Cymbalta and Fluoxetine for prolonged QT - Continue Home Lamotrigine #. History of UE DVT - Heparin 5k U SubQ Q8 #. Leukocytosis, present on admission, acute. Active - Likely secondary to recent Prednisone burst - Recent course of antibiotics, no productive cough fevers or chills This improved during the course of hospitalization. #. Pleuritic chest pain, present on admission, acute. Active - ECG, Trop, D-Dimer, CXR all reassuring for no acute occlusive process - Likely secondary to prolonged cough and COPD exacerbation - Tylenol 625 for pain, Morphine PRN ordered should this prove ineffective: monitor for respiratory depression if used #. Chronic nasal congestion, present on admission, chronic. Active - Continue home Afrin #. Restless leg syndrome -Continue ropinirole, follow electrolytes and correct as needed Other chronic conditions managed with Home meds Hyperlipidemia: Continue home Simvastatin, lipid panel pending ADD/ADHD: Patient insisted Adderall be restarted Mild CHF with fluid retention: Continue Home Lasix Bowel prophylaxis CODE STATUS: Full code The patient was stable for discharge home on June 11. Exam Vital Signs (Last) Date Time Temp Pulse Resp B/P Pulse Ox O2 Delivery O2 Flow Rate FiO2 06/11/16 12:55 80 06/11/16 12:15 37.2 20 161/94 92 Nasal Cannula 2.50 06/09/16 09:00 50 Exam Patient was seen and examined on the day of discharge Test 06/08/16 16:00 06/09/16 03:30 06/10/16 03:50 06/11/16 04:27 D-Dimer < 0.5mg/L FEU (<0.50) Troponin T < 0.010ug/L (0.0-0.011) Pro-B-Type Natriuretic Peptide 60.03pg/mL (0-249) Triglycerides Level 314mg/dL (0-149) Cholesterol Level 208mg/dL (100-199) LDL Cholesterol, Calculated 98.200mg/dL (0-99) VLDL Cholesterol 62.800mg/dL HDL Cholesterol 47mg/dL (>39) Cholesterol/HDL Ratio 4.43 (0.0-4.4) Procalcitonin 0.14ng/mL (0.00-0.08) Hold Smith Top Tube Received (Received) Prothrombin Time 10.7sec (8.1-12.5) Prothromb Time International Ratio 1.00ratio Phosphorus Level 4.5mg/dL (2.5-4.9) Magnesium Level 2.3mg/dL (1.6-2.6) Total Bilirubin 0.6mg/dL (0.0-1.2) Aspartate Amino Transf (AST/SGOT) 21U/L (0-50) Alanine Aminotransferase (ALT/SGPT) 38U/L (0-32) Alkaline Phosphatase 80U/L (25-150) Total Protein 6.9g/dL (6.4-8.4) Albumin 3.6g/dL (3.4-5.0) Hemoglobin A1c 13.5% (4.8-5.6) White Blood Count 10.4th/mm3 (3.8-10.1) Red Blood Count 4.53mil/mm3 (3.90-5.20) Hemoglobin 13.7g/dL (12.0-15.6) Hematocrit 40.2% (35.0-46.0) Mean Corpuscular Volume 88.7fL (81-100) Mean Corpuscular Hemoglobin 30.2pg (27.0-35.0) Mean Corpuscular Hemoglobin Concent 34.1% (32.0-37.0) Red Cell Distribution Width 14.3% (12.3-15.4) Platelet Count 269bil/L (150-400) Neutrophils (%) (Auto) 57.6% (40-74) Lymphocytes (%) (Auto) 27.6% (14-46) Monocytes (%) (Auto) 9.5% (4-12) Eosinophils (%) (Auto) 3.7% (0-5) Basophils (%) (Auto) 0.4% (0-3) Sodium Level 131mEq/L (134-144) Potassium Level 3.1mEq/L (3.5-5.2) Chloride Level 90mEq/L (97-108) Carbon Dioxide Level 25mmol/L (18-29) Blood Urea Nitrogen 22mg/dL (6-24) Creatinine 0.94mg/dL (0.57-1.00) Estimat Glomerular Filtration Rate 89mL/min (>59) Glucose Level 318mg/dL (60-99) Calcium Level 9.0mg/dL (8.5-10.1) Discharge Medications Discharge Medications Amphet Asp/Amphet/D-Amphet (Adderall) 30 Mg Tablet 30 MG PO BID (Reported) Ascorbate Calcium (Vitamin C) 500 Mg Tablet 500 MG PO TID (Reported) Budesonide/Formoterol 160-4.5 mcg Inh (Symbicort 160-4.5 mcg Inh) 120 Puff Inhaler 2 PUFF INHALATION BID (Reported) Calcium Carbonate (Caltrate 600) 600 Mg Tablet 600 MG PO DAILY (Reported) Chromium Picolinate (Chromium Picolinate) 200 Mcg Capsule Unknown Dose PO DAILY (Reported) Duloxetine (Cymbalta) 60 Mg Capsule.dr 60 MG PO HS (Reported) Fluoxetine (Prozac) 40 Mg Capsule 40 MG PO QAM (Reported) Furosemide (Furosemide) 80 Mg Tab 120 MG PO AM (Reported) Hydrochlorothiazide (Hydrochlorothiazide) 50 Mg Tablet 50 MG PO QAM (Reported) Insulin Lispro (HumaLOG U100 Insulin Pen) 100 Unit/1 Ml Insuln.pen 5-30 UNIT SUBQ TID-INSULIN (Reported) sliding scale Insulin Regular, Human (HUMulin-R U-500 Insulin Vial) 500 Unit/1 Ml Vial 0.36 ML SQ with breakfast (Reported) Insulin Regular, Human (HUMulin-R U-500 Insulin Vial) 500 Unit/1 Ml Vial 0.27 ML SUBQ BIDLS (Reported) Ipratropium/Albuterol Sulfate (Iprat-Albut 0.5-3(2.5) mg/3 mL Inhalant Soln) 3 Ml Ampul.neb 3 ML IH TID (Reported) Lamotrigine (Lamotrigine) 200 Mg Tablet 400 MG PO BID (Reported) Lisdexamfetamine Dimesylate (Vyvanse) 70 Mg Capsule 70 MG PO DAILY (Reported) Loratadine (Loratadine) 10 Mg Tablet 10 MG PO QAM (Reported) Multivitamin (Multi-Vitamin Daily) 1 Each Tablet 1 EACH PO DAILY (Reported) Omeprazole Magnesium (Prilosec Otc) 20 Mg Tablet.dr 40 MG PO BID (Reported) Potassium Chloride Powder (Klor-Con Powder) 20 Meq Packet 40 MEQ PO TID ( Reported) AM, 3pm, and bedtime. DISSOLVE CONTENTS OF ONE PACKET IN FULL GLASS OF WATER AND DRINK. Pregabalin (Lyrica) 200 Mg Capsule 200 MG PO TID (Reported) Propylene Glycol/Peg 400 (Systane 0.3-0.4% Eye Drops) 15 Ml Drops 2 DRP BOTH_ EYES Q4-6H (Reported) Ropinirole (Requip) 3 Mg Tablet 6 MG PO HS (Reported) Simvastatin (Simvastatin) 80 Mg Tablet 80 MG PO HS (Reported) Tiotropium [place] (Spiriva) 18 Mcg Cap.w.dev 18 MCG IH HS (Reported) Topiramate (Topiramate) 50 Mg Tablet 50 MG PO BID (Reported) Zinc Gluconate (Zinc) 50 Mg Tablet 50 MG PO DAILY (Reported) As needed Albuterol HFA (Proair HFA) 8.5 Gm Hfa.aer.ad 2 PUFFS IH Q4-6H PRN PRN For Shortness of Breath (Reported) Albuterol Neb Soln (Albuterol Neb Soln) 2.5 Mg/3 Ml Vial.neb 2.5 MG IH Q2 PRN PRN For Shortness of Breath (Reported) Fenofibrate Nanocrystallized (Fenofibrate) 48 Mg Tablet 48 MG PO AM PRN PRN allergy relief (Reported) Fluticasone Propionate (Fluticasone Propionate Nasal) 16 Gm [place].susp 2 SPRAY NS HS PRN PRN allergy symptoms (Reported) Guaifenesin/Codeine Phosphate (Codeine-Guaifen 10-100 mg/5 ml) 120 Ml Liquid 15 ML PO QID PRN PRN For Cough Prescribed by: CHIVO SUTTON MD Naphazoline HCl/Pheniramine (Naphcon-A Eye Drops) 225 Drop/15 Ml [place] 2 DROP BOTH_EYES BID PRN PRN For Eye Irritation (Reported) Oxymetazoline HCl (Afrin) 30 Ml [place] 1-2 SPRAY NS BID PRN PRN For Congestion ( Reported) Maxium 3 day use. Followup Plan Disposition: Home, with Discharge Diet: Diabetic Discharge Activity: Limited until seen by PCP Patient Instructions Dr Jones June 12 as scheduled. Time spent 40 minutes Chivo Sutton MD Jun 12, 2016 13:11
== END 2016-06-11 15:25 | disposition home or self-care (01) | DRG 190 ==
LOC: SED 13:36 → PCC 20:10 → UNDOADMOB 20:10 → OBSVTOIN 20:10 → OSC 20:10
PROVIDERS: ADMIT Internal Medicine; ATTEND Internal Medicine
DX: J44.1 Chronic obstructive pulmonary disease with (acute) exacerbation (principal); J96.21 Acute and chronic respiratory failure with hypoxia; Z86.718 Personal history of other venous thrombosis and embolism; Z79.4 Long term (current) use of insulin; E11.40 Type 2 diabetes mellitus with diabetic neuropathy, unspecified; E11.21 Type 2 diabetes mellitus with diabetic nephropathy; F32.9 Major depressive disorder, single episode, unspecified; F41.9 Anxiety disorder, unspecified; D72.829 Elevated white blood cell count, unspecified; T38.0X5A Adverse effect of glucocorticoids and synthetic analogues, initial encounter; R09.81 Nasal congestion; R07.89 Other chest pain; G25.81 Restless legs syndrome

== ENCOUNTER 2016-06-14 16:08 | Inpatient (IN) | payer OTHER, MEDICAID ==
[~2016-06-14] VITALS: Ht 172.7 cm; Wt 109.9 kg
[~2016-06-14 16:08] MED LIST changes: -AMIL5TAB2 PO; -ARIP10TA14 PO; -CYAN3000 SL; -FORM12CA IH; +GUAI120L57 PO; -HYDR4TAB PO; +LISD70CA2 PO; -PROG200C7 PO; +SYMINH INHALATION; -WARF7.5T4 PO
--- NOTE | 2016-06-14 16:11 | ED.REPORT ---
HPI-Neurologic Deficit Date of Service Jun 14, 2016 ED Provider: Raquel Payton MD Pt is a 55 y/o female w/ a hx of IDDM, COPD, CHF, hyperlipidemia, chronic hemianopsia, presenting to the ED via EMS with her family due to gradually improving stroke-like symptoms with last known normal at 11:00. The family noticed the patient experiencing slurred speech at 11:00 this morning and took a nap. She woke up and was experienced left-sided weakness and facial droop. Family reports left facial droop, LUE and LLE weakness and numbness, decreased level of consciousness, dysarthria, headache, confusion. Confusion is described as repeating the same words over and over. The patient experienced a ground level fall yesterday causing only minor abrasions. The cause of the fall is unknown. Blood glucose 139 in the field. Personal history limited due to altered mental status. Nursing Notes Stated Complaint: STROKE Nursing Notes Reviewed: Yes Allergies: Coded Allergies: Contrast Media (Verified Allergy, Severe, Anaphylaxis, 06/28/14) Sulfa (Sulfonamide Antibiotics) (Verified Allergy, Severe, Rash,Itching, SOB, 06/28/14) iodine (Verified Allergy, Severe, UNSPEC, 06/28/14) topical iodine causes rash ketorolac (Verified Allergy, Severe, 06/28/14) paranoia per pt meperidine (Verified Allergy, Severe, UNSPEC, 06/28/14) paranoia and asthma povidone (Verified Allergy, Severe, 06/28/14) cefazolin sodium (Verified Allergy, Intermediate, Rash,Itching,SOB, ) shellfish derived (Verified Allergy, Unknown, 06/28/14) asthma, rash from food Uncoded Allergies: FRAGRANCES (Allergy, Unknown, 04/17/06) SEAFOOD (Allergy, Unknown, 07/10/03) Scheduled Amphet Asp/Amphet/D-Amphet (Adderall) 30 Mg Tablet 30 MG PO BIDWM Ascorbate Calcium (Vitamin C) 500 Mg Tablet 500 MG PO TIDWM Aspirin Chew (Aspirin Chew) 81 Mg Chew 81 MG PO HS Budesonide/Formoterol 160-4.5 mcg Inh (Symbicort 160-4.5 mcg Inh) 120 Puff Inhaler 2 PUFF INHALATION BID Calcium Carbonate (Calcium Carbonate) 600 Mg Tablet 600 MG PO DAILYWM Chromium Picolinate (Chromium Picolinate) 200 Mcg Capsule 200 MCG PO QAM Duloxetine (Cymbalta) 60 Mg Capsule.dr 60 MG PO QAM Fluoxetine (Prozac) 40 Mg Capsule 40 MG PO QAM Furosemide (Furosemide) 80 Mg Tab 120 MG PO AM Hydrochlorothiazide (Hydrochlorothiazide) 50 Mg Tablet 50 MG PO QAM Insulin Regular, Human (HUMulin-R U-500 Insulin Vial) 500 Unit/1 Ml Vial 0.37 ML SQ DAILYWM BREAKFAST Insulin Regular, Human (HUMulin-R U-500 Insulin Vial) 500 Unit/1 Ml Vial 0.27 ML SUBQ DAILYWL LUNCH Insulin Regular, Human (HUMulin-R U-500 Insulin Vial) 500 Unit/1 Ml Vial 0.17 ML SUBQ DAILYWD DINNER Ipratropium/Albuterol Sulfate (Iprat-Albut 0.5-3(2.5) mg/3 mL Inhalant Soln) 3 Ml Ampul.neb 3 ML IH TID Lamotrigine (Lamotrigine) 200 Mg Tablet 400 MG PO BID Lisdexamfetamine Dimesylate (Vyvanse) 70 Mg Capsule 70 MG PO QAM Loratadine (Claritin) 10 Mg Capsule 10 MG PO QAM Multivit with Calcium,Iron,Min (Therapeutic M) 1 Each Tablet 1 EACH PO QAM Omeprazole Magnesium (Prilosec Otc) 20 Mg Tablet.dr 40 MG PO BIDWM Potassium Chloride (Potassium Chloride Powder) 20 Meq Packet 20 MEQ PO BIDWM 40 MEQ IN AM, 20 MEQ AT NOON, 20 MEQ IN EVENING DISSOLVE CONTENTS OF PACKET IN FULL GLASS OF WATER AND DRING TWO TIMES DAILY. TAKE WITH FOOD Potassium Chloride Powder (Klor-Con Powder) 20 Meq Packet 40 MEQ PO QAM 40 MEQ IN AM, 20 MEQ AT NOON, 20 MEQ IN EVENING DISSOLVE CONTENTS OF ONE PACKET IN FULL GLASS OF WATER AND DRINK ONCE DAILY. Prednisone (PredniSONE) 20 Mg Tablet 10-40 MG PO DAILYWM Pregabalin (Lyrica) 75 Mg Capsule 75 MG PO BIDWM 75 MG IN AM & NOON, 150 MG AT HS Pregabalin (Lyrica) 75 Mg Capsule 150 MG PO HS 75 MG IN AM & NOON, 150 MG AT HS Primidone (Primidone) 50 Mg Tablet 100 MG PO HS Ropinirole (Ropinirole) 4 Mg Tablet 4 MG PO BID Simvastatin (Simvastatin) 80 Mg Tablet 80 MG PO HS Tiotropium [place] (Spiriva) 18 Mcg Cap.w.dev 18 MCG IH HS Topiramate (Topiramate) 50 Mg Tablet 50 MG PO BID Zinc Gluconate (Zinc) 50 Mg Tablet 50 MG PO QAM Scheduled PRN Albuterol HFA (Proair HFA) 8.5 Gm Hfa.aer.ad 2 PUFFS IH Q4H PRN PRN For Shortness of Breath Albuterol Neb Soln (Albuterol Neb Soln) 2.5 Mg/3 Ml Vial.neb 2.5 MG IH Q2 PRN PRN For Shortness of Breath Benzonatate (Benzonatate) 200 Mg Capsule 200 MG PO Q8H PRN PRN For Cough Fluticasone Propionate (Fluticasone Propionate Nasal) 16 Gm [place].susp 2 SPRAY NS HS PRN PRN allergy symptoms Guaifenesin/Codeine Phosphate (Codeine-Guaifen 10-100 mg/5 ml) 120 Ml Liquid 15 ML PO QID PRN PRN For Cough Insulin Lispro (HumaLOG U100 Insulin Pen) 100 Unit/1 Ml Insuln.pen 5-30 UNIT SUBQ ACHS PRN PRN HYPERGLYCEMIA sliding scale Naphazoline HCl/Pheniramine (Allergy Eye Drops) 0.025 %-0.3 % Drops 2 DROP BOTH_ EYES BID PRN PRN For Eye Irritation Nystatin (Nystatin) 60 Applic/15 Gm Cream 1 APPLIC TOP BID PRN PRN RASH Oxymetazoline HCl (Nasal [place] Sinus) 30 Ml [place] 1 SPRAY NS BID PRN PRN For Congestion Propylene Glycol/Peg 400/Pf (Systane 0.3-0.4% Eye Drops) 1 Each [place] 2 DROP BOTH_EYES Q2H PRN PRN DRY EYES General Time Seen by Provider: 16:08 Chief Complaint Other (left-sided) Hx Obtained From: Patient, EMS Arrived By: Ambulance Sudden in Onset?: Yes Onset Occurred: 5 - 8 hours ago Symptom Duration: Since onset Location: : Head Quality: Aching Severity: Current: Mild Severity: Maximum: Mild Risk Factors TPA Administration/Criteria Stroke Thrombolytic Therapy : TPA Considered: Yes TPA Administered Intravenously: No, not indicated NIH Stroke Scale Level of Consciousness: Arouse by repeat stim (2) Ask Month & Age: 1 question right (1) Open/Close Eyes/Hand Sports Writer: Performs both tasks (0) Horizontal EO Movements: None (0) Facial Palsy: Minor paralysis (1) Right Arm Motor Drift (10s): No drift 10 sec (0) Left Arm Motor Drift (10s): No effort, limb fails (3) Right Leg Motor Drift (5s): Untestable (0) Left Leg Motor Drift (5s): Untestable (0) Limb Ataxia FNF/Heel-Lo: Untestable (0) Sensation (Arms/Legs/Face): P-prick dull but felt (1) Language Aphasia: Severe, fragmented (2) Dysarthria: Slurring intelligible (1) Extinction/Inattention: Extin cutan jordon stim (1) NIHSS Score: 12 Time NIHSS Performed: 16:30 Date NIHSS Performed: Jun 14, 2016 Past Medical History Past Medical History Notes: PCP: Dr. Esteban Mitchell SEVERE CONTRAST ALLERGY Past Medical History 1. Upper extremity DVT secondary to PICC line, treated with warfarin 2. Restless leg syndrome 3. Diabetic neuropathy 4. Diabetes mellitus 5. Asthma 6. COPD 7. CHF 8. GERD 9. Bilateral drop foot 10. osteoarthritis 11. Osteomyelitis 12. binasal hemianopsia 13. sleep apnea 14. Admit sepsis from diabetic foot June 2014 15. bipolar disorder 16. Review of seizure disorder 17. Hyperlipidemia Past Surgical History left knee left shoulder Right shoulder x2 laminectomy L4-L5 in 1994 Laminectomy L4-L5 in 2010 Laminectomy C5 C6 C6 09/07/2009, infusion later in 2009 Laminectomy T11-T12 in 2010 Jayce fundoplication 1995 Smoking History Never Smoker Social History Alcohol Use: "Social" Drug Use: Denies drug use Other Social History: Good social support, Local resident Ambulatory Status Independent Review of Systems Review of Systems Note: +left facial droop Neurologic: Reports: Change LOC, Confusion, Focal weakness, Headache, Numbness , Slurred speech Complete sys rev & neg: except as marked. Physical Exam Initial Vital Signs Vital Signs (First) Date Time Temp Pulse Resp B/P Pulse Ox O2 Delivery O2 Flow Rate FiO2 06/14/16 16:37 36.6 92 19 133/74 94 Room Air Initial VS: Reviewed, Vital signs normal ENT: Mucous membranes moist, Conjunctiva normal, No scleral icterus Neck: Supple, Full range of motion Skin: Warm, Dry, No cyanosis General/Constitutional: Awake Alertness: Positive: Confused Head / Eyes: Normocephalic, PERRL Ecchymosis to bridge of nose with abrasions. Ecchymosis of right orbit Respiratory / Chest: Atraumatic, No respiratory distress, No retractions Scattered wheezes O2 sat 94% on RA Cardiovascular: Heart rate NL, Regular rhythm, Heart sounds NL, No gallop, No murmurs, No rubs, Cap refill not delayed, Peripheral circulation NL NEURO: See NIH stroke scale, 12 points total Repetitive movements involving both legs - family states caused by restless leg syndrome - possibly increased from baseline Lower extremity strength untestable Cerebellar untestable Visual giraldo untestable Interpretation & Diagnostics Lab Results Interpretation Result Diagram: 06/14/16 1615 06/14/16 1615 Test 06/14/16 16:15 White Blood Count 16.4th/mm3 (3.8-10.1) Red Blood Count 5.08mil/mm3 (3.90-5.20) Hemoglobin 15.4g/dL (12.0-15.6) Hematocrit 45.8% (35.0-46.0) Mean Corpuscular Volume 90.2fL (81-100) Mean Corpuscular Hemoglobin 30.3pg (27.0-35.0) Mean Corpuscular Hemoglobin Concent 33.6% (32.0-37.0) Red Cell Distribution Width 14.4% (12.3-15.4) Platelet Count 408bil/L (150-400) Neutrophils (%) (Auto) 80.9% (40-74) Lymphocytes (%) (Auto) 11.7% (14-46) Monocytes (%) (Auto) 5.9% (4-12) Eosinophils (%) (Auto) 0.1% (0-5) Basophils (%) (Auto) 0.1% (0-3) Prothrombin Time 10.8sec (8.1-12.5) Prothromb Time International Ratio 1.01ratio Activated Partial Thromboplast Time 22.8sec (22.8-33.0) Sodium Level 133mEq/L (134-144) Potassium Level 2.7mEq/L (3.5-5.2) Chloride Level 79mEq/L (97-108) Carbon Dioxide Level 32mmol/L (18-29) Blood Urea Nitrogen 45mg/dL (6-24) Creatinine 1.91mg/dL (0.57-1.00) Estimat Glomerular Filtration Rate 39mL/min (>59) Glucose Level 138mg/dL (60-99) Calcium Level 9.9mg/dL (8.5-10.1) Total Bilirubin 0.4mg/dL (0.0-1.2) Aspartate Amino Transf (AST/SGOT) 62U/L (0-50) Alanine Aminotransferase (ALT/SGPT) 81U/L (0-32) Alkaline Phosphatase 83U/L (25-150) Troponin T < 0.010ug/L (0.0-0.011) Total Protein 7.9g/dL (6.4-8.4) Albumin 4.7g/dL (3.4-5.0) ECG Interpretation ECG Interpretation: Sinus rhythm rate 92 Prolonged QT interval QTc 555 Time: 17:10 Interpreted by: ED physician CT Head Interpretation IMPRESSION: 1. No acute intracranial findings. This finding was discussed with Dr. Payton at 20 5 PM on 06/14/16. This study fulfills neurological imaging criteria for inclusion or exclusion of acute stroke therapies based on available published neurological imaging guidelines. Dictated by: Juany Torres M.D. on 06/14/2016 at 16:21 Approved by: Juany Torres M.D. on 06/14/2016 at 16:26 Study: Head CT no contrast Interpretation / Wet Read by: Interpret - Radiologist Re-Eval/Medical Decision Med Decision/Clinical Course 55-year-old female with an acute CVA. Stroke scale is 12 we are unable to test visual field cuts, ataxia and lower extremity motor. She is outside even the extended window for systemic TPA, and we are unable to do it cerebral angiogram secondary to her contrast allergy. She is hemodynamically stable, we will admit her to the hospitalist service and given aspirin. Neurology will consult. She is noted to be hypokalemic, potassium replacement was begun. Re-Evaluation/Progress : Time of Eval: 17:31 Re-Evaluation/Progress Note: Pt rechecked. Informed pt of need for admission. Pt understands and agrees with plan for admission. All questions addressed. Consultation #1: Consulted With: Neurology Call Returned at: 16:54 Rn Mds: Agrees with eval, Agrees with plan Note: Case discussed with [facility] Neurology Dr. Mackay. Consultation #2: Referral / Consult Name: Moisés Chavez MD Consulted With: Neurology Call Returned at: 17:03 Rn Mds: Agrees with eval, Agrees with plan Note: Will consult Consultation #3: Referral / Consult Name: Bruce Escamilla MD Consulted With: Hospitalist Call Returned at: 17:45 Rn Mds: Will see patient, Agrees with eval, Agrees with plan, Accepts admit Counseled Regarding: Diagnosis, Lab results Discharge & Departure Impression: Primary Impression: Acute CVA (cerebrovascular accident) Additional Impression: Hypokalemia Disposition: ADMITTED TO HOSPITAL Discharge Condition All VS Reviewed: Yes Condition: Stable Referrals: Kevin Mitchell MD (PCP) Scribe Attestation Portions of this note were transcribed by José Luis Arreola. I, Dr. Mccain, personally performed the history, physical exam and medical decision-making; I reviewed and confirmed the accuracy of the information in the transcribed note. Signed by Mirtha Ureña, 06/14/16 - [id number] copies to: Kevin Mitchell MD, Donald L MD Jun 14, 2016 16:11 JOSÉ LUIS ARREOLA Jun 14, 2016 16:19
--- NOTE | 2016-06-14 16:27 | DRSVH ---
PROCEDURE: CT BRAIN (TPA) ([id number]) INDICATIONS: Stroke TECHNIQUE: Noncontrast 4.5 mm thick angled axial sections acquired from the foramen magnum to the vertex, with c oronal reformats. COMPARISON: None. FINDINGS: Image quality: Excellent. CSF spaces: Basal cisterns are patent. No extra-axial fluid collections. Ventricles are normal in size and shape. Brain: No midline shift. No intracranial masses or hemorrhage. [place]-white matter interface is norm al. Skull and face: Calvarium and visualized facial bones are intact, without suspicious lesions. Sinuses: Visualized sinuses and mastoids are clear. IMPRESSION: 1. No acute intracranial findings. This finding was discussed with Dr. Payton at 20 5 PM on 06/14/16. This study fulfills neurological imaging criteria for inclusion or exclusion of acute stroke therapie s based on available published neurological imaging guidelines. Dictated by: Juany Torres M.D. on 06/14/2016 at 16:21 Approved by: Juany Torres M.D. on 06/14/2016 at 16:26
[2016-06-14 16:37] VITALS: BP 133/74; PULSE 92; RESP 19; O2SAT 94
[2016-06-14 16:45] LABS: BASOPHILS % (AUTO) 0.1 % (0-3); EOSINOPHILS % (AUTO) 0.1 % (0-5); MONOCYTES % (AUTO) 5.9 % (4-12); Mean Corpuscular Hemoglobin 30.3 pg (27.0-35.0); Mean Corpuscular Volume 90.2 fL (81-100); NEUTROPHILS % (AUTO) 80.9 % (40-74); Platelet Count 408 bil/L (150-400)
[2016-06-14 16:50] LABS: INR 1.01 ratio
[2016-06-14 17:19] LABS: TROPONIN T < 0.010 ug/L (0.0-0.011)
[2016-06-14] MEDS ORDERED: KCl 40 mEq/D5W 500 mL 40 MEQ in IV Premix 1 EACH IV ONE (17:40)
[2016-06-14] MEDS ORDERED: Ondansetron 2 mg/mL 2 mL Inj IVPUSH PRN (18:00)
[2016-06-14] MEDS ORDERED: MULT-140 PO (18:13)
[2016-06-14] MEDS ORDERED: CALC600T20 PO (18:13)
[2016-06-14] MEDS ORDERED: NAPH15DR63 BOTH_EYES (18:13)
[2016-06-14] MEDS ORDERED: LORA10CA PO (18:13)
[2016-06-14] MEDS ORDERED: POTA20PA3 PO (18:15)
[2016-06-14] MEDS ORDERED: OXYM30SP18 NS (18:15)
[2016-06-14] MEDS ORDERED: POTA20PA12 PO (18:16)
[2016-06-14] MEDS ORDERED: PREG75CA PO ×2 (18:18)
[2016-06-14] MEDS ORDERED: PROP1DRO BOTH_EYES (18:20)
[2016-06-14] MEDS ORDERED: ASPI81TA3 PO (18:20)
[2016-06-14] MEDS ORDERED: INSU500V SUBQ (18:23)
[2016-06-14] MEDS ORDERED: PRE20 PO (18:26)
[2016-06-14] MEDS ORDERED: PRIM50TA PO (18:28)
[2016-06-14] MEDS ORDERED: BENZ200C44 PO (18:28)
[2016-06-14] MEDS ORDERED: ROPI4TAB4 PO (18:29)
[2016-06-14] MEDS ORDERED: MYCC TOP (18:32)
[2016-06-14 18:39] VITALS: BP 118/74; PULSE 95; RESP 13; O2SAT 92
[2016-06-14 19:30] VITALS: BP 107/65; PULSE 67; RESP 20; O2SAT 92
[2016-06-14] MEDS ORDERED: Fluticasone 0.05% 15 Spray/2 Gm 16 Gm Nasal Spray NASAL PRN (20:35)
[2016-06-14] MEDS ORDERED: Naphazoline/Pheniramine 5 mL Ophthalmic Solution BOTH_EYES PRN (20:35)
[2016-06-14] MEDS ORDERED: Albuterol 2.5 mg/3 mL Inhalation Solution NEB PRN (20:35)
[2016-06-14] MEDS ORDERED: Albuterol HFA 60 Puff 8 Gm Inhaler INHALATION PRN (20:35)
[2016-06-14] MEDS: Tiotropium 18mcg/Cap 5 Capsule Inhaler Kit INHALATION SCH (21:00)
[2016-06-14] MEDS: 0.9% NaCl + KCl 20 mEq/L 1,000 ML IV SCH (22:30)
[2016-06-14] MEDS: Bacitracin Zinc 15 Gm Ointment TOPICAL SCH (22:30)
[2016-06-14 22:45] VITALS: BP 103/62; PULSE 79; RESP 16; O2SAT 96
[2016-06-14] MEDS ORDERED: (U-500) Insulin Regluar, Human 500 Unit/mL Syringe SUBQ PRN (22:45)
[2016-06-14] MEDS ORDERED: Glucose 40% Oral Gel 15 Gm Tube PO PRN (22:50)
--- NOTE | 2016-06-14 22:59 | NUR ---
Change in LOC Patient A&Ox3, GCS 15 on arrival to floor at 1925. Nursing in and out of room and family at beside. Nursing in room several times to adjust IV and patient awake and conversing. Nursing in room at 2250 and patient not responding; GCS 3. Full vitals obtained and blood sugar checked. Charge nurse notified and provider paged. Addendum: 06/14/16 at 7471 by LAURA VILLANUEVA RN Doctor to bedside to assess patient. Oxygen removed; patient arousable to painful stimuli. Patient placed on continuous pulse ox. Continue to monitor.
--- NOTE | 2016-06-14 23:32 | PCM.HPMED ---
Subjective Date of Service Jun 14, 2016 Primary Provider: Admitting Physician: Bruce Escamilla MD Primary Care Physician: Kevin Mitchell MD Attending Physician: Bruce Escamilla MD History of Present Illness: Chief complaint left-sided weakness HISTORY was OBTAINED FROM PATIENT / [employer] NOT[employer] History of present illness 55-year-old female, awaiting MRI under sedation per outpatient neurologist for upper extremity tremors evaluation, w/ significant RLS, faceplanted into table yesterday with subsequent raccoon eyes associated lightheadness/feet gave way without LOC without convulsions heard by family in another room, NOW presented to ER today due to slurred/repetitive/fragmented speech per family and left upper and lower extremity weakness and paresthesia/ left nasolabial fold less/left facial sensation less. In the ER, vitals stable, patient refused CO aspirin, tolerated PO ASA Discharged 2 days ago for COPD exacerbation, resolving cough/pleuritic pain s/p levaquin prednisone. Review of Systems - none of the following - F/C/sick contact / wt change/ WILSON / lightheaded / dizziness / acid reflux / n/v/diarrhea / bleeding/bruising / leg swelling / change in voiding / yeast infections / rash ambulates w/ walker at home FAMILY HX DM, MA SOCIAL HX Never Smoker, social EtOH MEDICATIONS Scheduled Amphet Asp/Amphet/D-Amphet (Adderall) 30 Mg Tablet 30 MG PO BIDWM Ascorbate Calcium (Vitamin C) 500 Mg Tablet 500 MG PO TIDWM Aspirin Chew (Aspirin Chew) 81 Mg Chew 81 MG PO HS Budesonide/Formoterol 160-4.5 mcg Inh (Symbicort 160-4.5 mcg Inh) 120 Puff Inhaler 2 PUFF INHALATION BID Calcium Carbonate (Calcium Carbonate) 600 Mg Tablet 600 MG PO DAILYWM Chromium Picolinate (Chromium Picolinate) 200 Mcg Capsule 200 MCG PO QAM Duloxetine (Cymbalta) 60 Mg Capsule.dr 60 MG PO QAM Fluoxetine (Prozac) 40 Mg Capsule 40 MG PO QAM Furosemide (Furosemide) 80 Mg Tab 120 MG PO AM Hydrochlorothiazide (Hydrochlorothiazide) 50 Mg Tablet 50 MG PO QAM Insulin Regular, Human (HUMulin-R U-500 Insulin Vial) 500 Unit/1 Ml Vial 0.37 ML SQ DAILYWM BREAKFAST Insulin Regular, Human (HUMulin-R U-500 Insulin Vial) 500 Unit/1 Ml Vial 0.27 ML SUBQ DAILYWL LUNCH Insulin Regular, Human (HUMulin-R U-500 Insulin Vial) 500 Unit/1 Ml Vial 0.17 ML SUBQ DAILYWD DINNER Ipratropium/Albuterol Sulfate (Iprat-Albut 0.5-3(2.5) mg/3 mL Inhalant Soln) 3 Ml Ampul.neb 3 ML IH TID Lamotrigine (Lamotrigine) 200 Mg Tablet 400 MG PO BID Lisdexamfetamine Dimesylate (Vyvanse) 70 Mg Capsule 70 MG PO QAM Loratadine (Claritin) 10 Mg Capsule 10 MG PO QAM Multivit with Calcium,Iron,Min (Therapeutic M) 1 Each Tablet 1 EACH PO QAM Omeprazole Magnesium (Prilosec Otc) 20 Mg Tablet.dr 40 MG PO BIDWM Potassium Chloride (Potassium Chloride Powder) 20 Meq Packet 20 MEQ PO BIDWM 40 MEQ IN AM, 20 MEQ AT NOON, 20 MEQ IN EVENING DISSOLVE CONTENTS OF PACKET IN FULL GLASS OF WATER AND DRING TWO TIMES DAILY. TAKE WITH FOOD Potassium Chloride Powder (Klor-Con Powder) 20 Meq Packet 40 MEQ PO QAM 40 MEQ IN AM, 20 MEQ AT NOON, 20 MEQ IN EVENING DISSOLVE CONTENTS OF ONE PACKET IN FULL GLASS OF WATER AND DRINK ONCE DAILY. Prednisone (PredniSONE) 20 Mg Tablet 10-40 MG PO DAILYWM Pregabalin (Lyrica) 75 Mg Capsule 75 MG PO BIDWM 75 MG IN AM & NOON, 150 MG AT HS Pregabalin (Lyrica) 75 Mg Capsule 150 MG PO HS 75 MG IN AM & NOON, 150 MG AT HS Primidone (Primidone) 50 Mg Tablet 100 MG PO HS Ropinirole (Ropinirole) 4 Mg Tablet 4 MG PO BID Simvastatin (Simvastatin) 80 Mg Tablet 80 MG PO HS Tiotropium [place] (Spiriva) 18 Mcg Cap.w.dev 18 MCG IH HS Topiramate (Topiramate) 50 Mg Tablet 50 MG PO BID Zinc Gluconate (Zinc) 50 Mg Tablet 50 MG PO QAM Scheduled PRN Albuterol HFA (Proair HFA) 8.5 Gm Hfa.aer.ad 2 PUFFS IH Q4H PRN PRN For Shortness of Breath Albuterol Neb Soln (Albuterol Neb Soln) 2.5 Mg/3 Ml Vial.neb 2.5 MG IH Q2 PRN PRN For Shortness of Breath Benzonatate (Benzonatate) 200 Mg Capsule 200 MG PO Q8H PRN PRN For Cough Fluticasone Propionate (Fluticasone Propionate Nasal) 16 Gm [place].susp 2 SPRAY NS HS PRN PRN allergy symptoms Guaifenesin/Codeine Phosphate (Codeine-Guaifen 10-100 mg/5 ml) 120 Ml Liquid 15 ML PO QID PRN PRN For Cough Insulin Lispro (HumaLOG U100 Insulin Pen) 100 Unit/1 Ml Insuln.pen 5-30 UNIT SUBQ ACHS PRN PRN HYPERGLYCEMIA sliding scale Naphazoline HCl/Pheniramine (Allergy Eye Drops) 0.025 %-0.3 % Drops 2 DROP BOTH_ EYES BID PRN PRN For Eye Irritation Nystatin (Nystatin) 60 Applic/15 Gm Cream 1 APPLIC TOP BID PRN PRN RASH Oxymetazoline HCl (Nasal [place] Sinus) 30 Ml [place] 1 SPRAY NS BID PRN PRN For Congestion Propylene Glycol/Peg 400/Pf (Systane 0.3-0.4% Eye Drops) 1 Each Droperette 2 DROP BOTH_EYES Q2H PRN PRN DRY EYES Past Medical/Surgical HX 1. Upper extremity DVT secondary to PICC line, treated with warfarin 2. Restless leg syndrome / upper extremities tremors - her outpt neurologist ordered MRI under anesthesiology 3. Diabetic neuropathy 4. Diabetes mellitus 5. Asthma 6. COPD 7. CHF 8. GERD 9. Bilateral drop foot 10. osteoarthritis 11. Osteomyelitis 12. binasal hemianopsia 13. sleep apnea / COPD / home O2 3LNC 14. sepsis from diabetic foot June 2014 15. bipolar disorder 16. seizure disorder 17. Hyperlipidemia left knee left shoulder Right shoulder x2 laminectomy L4-L5 in 1994 Laminectomy L4-L5 in 2010 Laminectomy C5 C6 C6 2009, infusion later in 2009 Laminectomy T11-T12 in 2010 Jayce fundoplication 1995 Cataracts Sinusitis/fractured nose 3 Anxiety/depression Pneumothorax Allergies Coded Allergies: Contrast Media (Verified Allergy, Severe, Anaphylaxis, 06/28/14) Sulfa (Sulfonamide Antibiotics) (Verified Allergy, Severe, Rash,Itching, SOB, 06/28/14) iodine (Verified Allergy, Severe, UNSPEC, 06/28/14) topical iodine causes rash ketorolac (Verified Allergy, Severe, 06/28/14) paranoia per pt meperidine (Verified Allergy, Severe, UNSPEC, 06/28/14) paranoia and asthma povidone (Verified Allergy, Severe, 06/28/14) cefazolin sodium (Verified Allergy, Intermediate, Rash,Itching,SOB, ) shellfish derived (Verified Allergy, Unknown, 06/28/14) asthma, rash from food Uncoded Allergies: FRAGRANCES (Allergy, Unknown, 04/17/06) SEAFOOD (Allergy, Unknown, 07/10/03) PMH Social History Hx Alcohol Use: No Hx Substance Use: No Hx Tobacco Use: No Smoking Status: Never Smoker Exam Vital Signs Vital Sign - Last Date Time Temp Pulse Resp B/P Pulse Ox O2 Delivery O2 Flow Rate FiO2 06/14/16 18:39 95 13 118/74 92 Room Air 06/14/16 16:37 36.6 Lab and Diagnostics Labs Exam on admission 3L O2 NAD A and O x 3 mood affect WNL NC/AT no icterus no injected eyes EOMI PERRL /no pharyngeal lesions/ no oral lesions / hearing intact Supple neck CTAB equal chest rise / no accessory muscle use / speaks in full sentences / no rrw RRR S1 S2 / no mrg / 2+ radial pulses Soft nt nd + BS no hepatosplenomegaly No edema no cyanosis no ecchymosis of lower extremities No rash / no jaundice BECK CNII-XII grossly intact symmetrical, except left nasolabial fold less prominent , sensation less left face diffusely intermittent tremors of right upper extremity, significant RLS right lower extremity, Strength grossly intact of right upper and lower limbs 4+/5 Strength left upper/lower extremities 1+/5 Brocas/word finding and Wernickes/answers in numbers to non-numerical based questions EKG 92SR poor R wave progresion Trop pending UA pending LFT mild transminitis Imaging PROCEDURE: CT BRAIN (TPA) ([id number]) INDICATIONS: Stroke TECHNIQUE: Noncontrast 4.5 mm thick angled axial sections acquired from the foramen magnum to the vertex, with coronal reformats. COMPARISON: None. FINDINGS: Image quality: Excellent. CSF spaces: Basal cisterns are patent. No extra-axial fluid collections. Ventricles are normal in size and shape. Brain: No midline shift. No intracranial masses or hemorrhage. [place]valle-white matter interface is normal. Skull and face: Calvarium and visualized facial bones are intact, without suspicious lesions. Sinuses: Visualized sinuses and mastoids are clear. IMPRESSION: 1. No acute intracranial findings. This finding was discussed with Dr. Payton at 20 5 PM on 06/14/16. This study fulfills neurological imaging criteria for inclusion or exclusion of acute stroke therapies based on available published neurological imaging guidelines. 06/11/2016 echo Interpretation Summary The study quality was technically difficult. The ejection fraction is estimated to be 60-65%. The right ventricle grossly appears normal in size with probable normal systolic function. There is no significant valvular heart disease. Compared to the prior echo report on 2014, there is no significant change. Result Diagram: 06/14/16 1615 06/14/16 1615 Assessment & Plan Active issues and reason for admission Persistent left sided weakness, mixed aphasia, managing as CVA, in setting of severe RLS, tremors upper extremites-undergoing oupt neurology evaluation, seizure and migraine hx. --pending MRI-anticpate Dr. Chavez's recommendation for MRI-brain/neck? (Dr. 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, tolerated pureed per FILLING OPERATOR note, permissive HTN Leukocytosis,likely from facial trauma --pending CT max-face, DAY TEAM TO CALL ENT, prior complicated hx multiple nose fractures --pending UA hypokalemia mild hyponatremia w/ JOSIE --IVF, hold home diuretics GLF, unclear if weakness or lightheadness, unlike seizure/migraine per patient --low K contributory --pending orthostatics / thyroid panel / cortisol mild transaminitis, appears chronic --monitor Chronic issues known prior to admission, present on admission Upper extremity DVT secondary to PICC line, treated with warfarin Restless leg syndrome / upper extremities tremors - her outpt neurologist ordered MRI under anesthesiology, Bilateral drop foot, binasal hemianopsia Diabetic neuropathy/CKD Asthma / sleep apnea / COPD / home O2 3LNC / Pneumothorax CHF / DLP / HTN GERD bipolar disorder / seizure disorder / migraines Anxiety/depression/ADHD Sinusitis/fractured nose 3 --resume home meds --prn CPAP if comfortable for face Diet pureed/water per pbx installer, decreased home insulin from 85-135U to 50U w/ meals, NS+K 80/hr DVT prophylaxis heparin Code full Disposition inpt status Assessment and plan were discussed with patient family. Bruce Escamilla MD Jun 14, 2016 23:32
[2016-06-15] VITALS (11 sets, daily range): BP systolic 92–117; BP diastolic 54–76; PULSE 73–96; RESP 14–24; O2SAT 92–98
[2016-06-15 00:39] LABS: TROPONIN T 0.01 ug/L (0.0-0.011)
[2016-06-15] MEDS: 0.9% NaCl + KCl 20 mEq/L 1,000 ML IV SCH ×3 (02:04→16:57)
[2016-06-15] MEDS: Heparin 5,000 Unit/mL Inj SUBQ SCH ×4 (02:04→23:48)
[2016-06-15 04:03] LABS: Mean Corpuscular Hemoglobin 30.5 pg (27.0-35.0); Mean Corpuscular Volume 90.7 fL (81-100)
--- NOTE | 2016-06-15 06:02 | NUR ---
LOC continued to fluctuate throughout the night. Patient would be somnolent and arousable to painful stimuli only, then awake and speaking in full, clear sentences, only to become unarousable again. Provider aware. Continue to monitor.
[2016-06-15] MEDS: Pantoprazole 20 mg ER24 Tablet PO SCH (07:30)
[2016-06-15] MEDS: Albuterol-Ipratropium 3 mL Inhalation Solution NEB SCH ×3 (07:39→20:58)
[2016-06-15] MEDS ORDERED: (U-500) Insulin Regluar, Human 500 Unit/mL Syringe SUBQ SCH ×3 (08:00→17:30)
[2016-06-15] MEDS ORDERED: predniSONE 20 mg Tablet PO SCH (08:00)
[2016-06-15] MEDS ORDERED: DULoxetine 30 mg DR Capsule PO SCH (08:30)
[2016-06-15] MEDS ORDERED: Potassium Chloride 20 mEq SR Tablet PO ONE ×3 (09:00→23:45)
[2016-06-15] MEDS ORDERED: Potassium Chloride Inj 30 MEQ in Dextrose 5% 500 ML IV ONE (09:00)
--- NOTE | 2016-06-15 09:09 | DRSVH ---
PROCEDURE: CT FACE WITHOUT CONTRAST ([id number]) INDICATIONS: fell onto face, eval broken nose TECHNIQUE: Noncontrast 1.5 mm thick axial images acquired from the mandible through the frontal sinuses, with co linda and sagittal reformatting. For radiation dose reduction, the following was used: automated ex posure control. COMPARISON: None. FINDINGS: Image quality: Excellent. Bones and teeth: Orbital lynn are intact. There is a questionable minimally displaced anterior wall right maxillary sinus fracture versus vascular groove (series 2, image 62). are minimally displaced anterior nasal bone fractures. The nasal septum is intact. Visualized portions of the mandible demon strate no fractures or subluxation. Zygomatic arches are intact. Pterygoid plates are intact. Visu alized portions of the skull base and auditory canals are intact. Sinuses: Paranasal sinuses are aerated, without fluid levels, mucosal thickening, or mucoceles. Mas toid air cells are aerated. Soft tissues: Mild soft tissue swelling overlies the nasal bones. No enlarged lymph nodes. No soft t issue lacerations or debris. Vascular: Visualized vascular structures appear normal in the absence of contrast. Bony vascular fo ramina and canals are intact. IMPRESSION: 1. Minimally displaced nasal bone fractures. 2. Questionable minimally displaced anterior wall right maxillary sinus fracture versus vascular groo ve. Dictated by: Juany Torres M.D. on 06/15/2016 at 9:03 Approved by: Juany Torres M.D. on 06/15/2016 at 9:07
[2016-06-15] MEDS: Bacitracin Zinc 15 Gm Ointment TOPICAL SCH ×2 (09:52→23:21)
[2016-06-15] MEDS: Fluticasone-Salmererol 250-50 Inhaler INHALATION SCH ×2 (09:52→23:10)
[2016-06-15] MEDS: lamoTRIgine 100 mg Tablet PO SCH ×2 (09:54→23:11)
[2016-06-15] MEDS: Amphetamines (Mixed) 10 mg Tablet PO SCH ×2 (10:02→17:23)
[2016-06-15] MEDS: Insulin LISPRO 300 Unit/3 mL Inj SUBQ SCH ×4 (11:11→22:00)
--- NOTE | 2016-06-15 11:32 | NUR ---
Evaluation completed. Please go to "Notes" then click on "Assessments and Notes" (bottom left corner of screen). Then select appropriate discipline tab on top of screen.
[2016-06-15] MEDS ORDERED: LISD70CA2 PO (12:34)
[2016-06-15] MEDS ORDERED: Lactated Ringer's 1,000 ML IV ONE (12:42)
--- NOTE | 2016-06-15 12:42 | PCM.HPANE ---
Patient Data Surgeon Admitting Provider:Bruce Escamilla MD Attending Provider:Bruce Escamilla MD Primary Care Physician:Kevin Mitchell MD Other Provider: Reason for Visit CVA Ht/WT & BMI Height (Feet): 5 Height (Inches): 8.00 Weight (Kilograms): 105.500 Body Mass Index 35.25 Allergies Coded Allergies: Contrast Media (Verified Allergy, Severe, Anaphylaxis, 06/28/14) Sulfa (Sulfonamide Antibiotics) (Verified Allergy, Severe, Rash,Itching, SOB, 06/28/14) iodine (Verified Allergy, Severe, UNSPEC, 06/28/14) topical iodine causes rash ketorolac (Verified Allergy, Severe, 06/28/14) paranoia per pt meperidine (Verified Allergy, Severe, UNSPEC, 06/28/14) paranoia and asthma povidone (Verified Allergy, Severe, 06/28/14) cefazolin sodium (Verified Allergy, Intermediate, Rash,Itching,SOB, ) shellfish derived (Verified Allergy, Unknown, 06/28/14) asthma, rash from food Uncoded Allergies: FRAGRANCES (Allergy, Unknown, 04/17/06) SEAFOOD (Allergy, Unknown, 07/10/03) Past Anesthesia History Anesthesia History: Denies:: Abnormal Airway, Anesthesia Reactions, Difficult Intubation Diabetes History Hx Diabetes?: Yes Current Bedside Blood Glucose: 200 MRSA MRSA: No Medications Hypertension Medication: Yes Home Meds Incl Beta Kal: No Active Scripts Guaifenesin/Codeine Phosphate (Codeine-Guaifen 10-100 mg/5 ml)120 Ml Xzuhvc04 Ml PO QID PRN For Cough #120 Ref 3 Prov:Chivo Peterson MD 06/11/16 Reported Medications Lisdexamfetamine Dimesylate (Vyvanse)70 Mg Lyxxjah00 Mg PO DAILY 30 Days Ref 0 06/15/16 Nystatin 60 Applic/15 Gm Cream1 Applic TOP BID PRN RASH 06/14/16 Ropinirole 4 Mg Tablet4 Mg PO BID Ref 0 06/14/16 Primidone 50 Mg Teaeko343 Mg PO HS 30 Days 06/14/16 Benzonatate 200 Mg Lnmilha241 Mg PO Q8H PRN For Cough 06/14/16 Prednisone (PredniSONE)20 Mg Mkfqwj71-12 Mg PO DAILYWM Ref 0 06/14/16 Insulin Regular, Human (HUMulin-R U-500 Insulin Vial)500 Unit/1 Ml Vial0.17 Ml SUBQ DAILYWD #1 VIAL Ref 0 DINNER 06/14/16 Propylene Glycol/Peg 400/Pf (Systane 0.3-0.4% Eye Drops)1 Each Droperette2 Drop BOTH_EYES Q2H PRN DRY EYES 06/14/16 Aspirin Chew 81 Mg Chew81 Mg PO HS Ref 0 06/14/16 Pregabalin (Lyrica)75 Mg Vqtvytd709 Mg PO HS 30 Days Ref 0 75 MG IN AM & NOON, 150 MG AT HS 06/14/16 Pregabalin (Lyrica)75 Mg Kaimrok69 Mg PO BIDWM 30 Days Ref 0 75 MG IN AM & NOON, 150 MG AT HS 06/14/16 Potassium Chloride (Potassium Chloride Powder)20 Meq Rcvlcn11 Meq PO BIDWM 30 Days Ref 0 40 MEQ IN AM, 20 MEQ AT NOON, 20 MEQ IN EVENING DISSOLVE CONTENTS OF PACKET IN FULL GLASS OF WATER AND DRING TWO TIMES DAILY. TAKE WITH FOOD 06/14/16 Potassium Chloride Powder (Klor-Con Powder)20 Meq Lkdpjw32 Meq PO QAM Ref 0 40 MEQ IN AM, 20 MEQ AT NOON, 20 MEQ IN EVENING DISSOLVE CONTENTS OF ONE PACKET IN FULL GLASS OF WATER AND DRINK ONCE DAILY. 06/14/16 Oxymetazoline HCl (Nasal [place] Sinus)30 Ml Spray1 [place] NS BID PRN For Congestion 06/14/16 Naphazoline HCl/Pheniramine (Allergy Eye Drops)0.025 %-0.3 % Drops2 Drop BOTH_ EYES BID PRN For Eye Irritation 06/14/16 Multivit with Calcium,Iron,Min (Therapeutic M)1 Each Tablet1 Each PO QAM 06/14/16 Loratadine (Claritin)10 Mg Zbskdfj85 Mg PO QAM Ref 0 06/14/16 Calcium Carbonate 600 Mg Usfcqw668 Mg PO DAILYWM 06/14/16 Budesonide/Formoterol 160-4.5 mcg Inh (Symbicort 160-4.5 mcg Inh)120 Puff Inhaler2 Puff INHALATION BID #1 INHALER Ref 0 06/08/16 Lisdexamfetamine Dimesylate (Vyvanse)70 Mg Lcbrzwe01 Mg PO QAM 30 Days Ref 0 06/08/16 Insulin Regular, Human (HUMulin-R U-500 Insulin Vial)500 Unit/1 Ml Vial0.27 Ml SUBQ DAILYWL LUNCH 06/28/14 Ipratropium/Albuterol Sulfate (Iprat-Albut 0.5-3(2.5) mg/3 mL Inhalant Soln)3 Ml Ampul.neb3 Ml IH TID 06/28/14 Albuterol Neb Soln 2.5 Mg/3 Ml Vial.neb2.5 Mg IH Q2 PRN For Shortness of Breath 06/28/14 Chromium Picolinate 200 Mcg Qujiasq085 Mcg PO QAM 06/28/14 Fluticasone Propionate (Fluticasone Propionate Nasal)16 Gm [place].susp2 [place] NS HS PRN allergy symptoms 06/28/14 Albuterol HFA (Proair HFA)8.5 Gm Hfa.aer.ad2 Puffs IH Q4H PRN For Shortness of Breath 06/28/14 Tiotropium [place] (Spiriva)18 Mcg Cap.w.dev18 Mcg IH HS 06/28/14 Simvastatin 80 Mg Jgmxxk31 Mg PO HS 06/28/14 Hydrochlorothiazide 50 Mg Bmdjks70 Mg PO QAM 06/28/14 Topiramate 50 Mg Yawoed27 Mg PO BID 06/28/14 Duloxetine (Cymbalta)60 Mg Capsule.dr60 Mg PO QAM 06/28/14 Fluoxetine (Prozac)40 Mg Nlhigxr31 Mg PO QAM 06/28/14 Zinc Gluconate (Zinc)50 Mg Urtcoq87 Mg PO QAM 06/28/14 Ascorbate Calcium (Vitamin C)500 Mg Dcnymw880 Mg PO TIDWM 06/28/14 Insulin Regular, Human (HUMulin-R U-500 Insulin Vial)500 Unit/1 Ml Vial0.37 Ml SQ DAILYWM BREAKFAST 06/28/14 Insulin Lispro (HumaLOG U100 Insulin Pen)100 Unit/1 Ml Insuln.pen5-30 Unit SUBQ ACHS PRN HYPERGLYCEMIA sliding scale 06/28/14 Amphet Asp/Amphet/D-Amphet (Adderall)30 Mg Etklrg48 Mg PO BIDWM 06/28/14 Lamotrigine 200 Mg Jakggm349 Mg PO BID 06/28/14 Omeprazole Magnesium (Prilosec Otc)20 Mg Tablet.dr40 Mg PO BIDWM 06/28/14 Furosemide 80 Mg Bqe705 Mg PO AM 06/28/14 Discontinued Reported Medications Propylene Glycol/Peg 400 (Systane 0.3-0.4% Eye Drops)15 Ml Drops2 Drp BOTH_EYES Q4-6H 06/28/14 Potassium Chloride Powder (Klor-Con Powder)20 Meq Hrhdhk60 Meq PO TID AM, 3pm, and bedtime. DISSOLVE CONTENTS OF ONE PACKET IN FULL GLASS OF WATER AND DRINK. 06/28/14 Ropinirole (Requip)3 Mg Tablet6 Mg PO HS 06/28/14 Loratadine 10 Mg Ptoyge42 Mg PO QAM 06/28/14 Pregabalin (Lyrica)200 Mg Nqgoxxl896 Mg PO TID 06/28/14 Oxymetazoline HCl (Afrin)30 Ml Spray1-2 [place] NS BID PRN For Congestion Maxium 3 day use. 06/28/14 Naphazoline HCl/Pheniramine (Naphcon-A Eye Drops)225 Drop/15 Ml Ophsoln2 Drop BOTH_EYES BID PRN For Eye Irritation 06/28/14 Calcium Carbonate (Caltrate 600)600 Mg Nzbsbw563 Mg PO DAILY 06/28/14 Multivitamin (Multi-Vitamin Daily)1 Each Tablet1 Each PO DAILY 06/28/14 Fenofibrate Nanocrystallized (Fenofibrate)48 Mg Vlgirl87 Mg PO AM PRN allergy relief 06/28/14 Fluticasone Propionate (Fluticasone Propionate Nasal)16 Gm [place].susp2 [place] NS QAM 06/28/14 Formoterol Fumarate (Foradil)12 Mcg Cap.w.dev12 Mcg IH BID 06/28/14 Amiloride 5 Mg Tablet5 Mg PO QAM 06/28/14 Cyanocobalamin (Vitamin B-12) (B-12)3,000 Mcg Tab.subl3,000 Mcg SL DAILY 06/28/14 Progesterone,Micronized (Progesterone)200 Mg Ukvdrss031 Mg PO DAILY two weeks on, then two weeks off. 06/28/14 Aripiprazole (Abilify)10 Mg Runsrq25 Mg PO HS 06/28/14 Warfarin Sodium 7.5 Mg Tablet7.5 Mg PO AM 06/28/14 Discontinued Scripts Hydromorphone 4 Mg Tablet4 Mg PO Q4H PRN Pain #25 TABLET Ref 0 Prov:Carlos Ramey MD 02/01/15 History History of ENT Problems?: Yes HEENT History: Positive for:: Cataracts (both eyes, surgery Mar/Apr 2016) Dysphagia Sinus Problem (sinusitis, nose broken x3, left sinus crushed.) Denies:: Glaucoma Hx of Heart Problems?: Yes Cardiovascular History: Positive for:: Chest Pain Congestive Heart Failure Edema Hypertension Irregular Heartbeat (have had abnormal EKGs in the past) Denies:: Cardiac Surgery Heart Murmur Pacemaker Thrombophlebitis Hx of Respiratory Problem?: Yes Respiratory History: Positive for:: Asthma COPD Dyspnea (with activity and at rest) Pneumonia Denies:: Chest Surgery Emphysema Hemoptysis Tuberculosis Hx Neurologic Problems?: Yes Neurological History: Positive for:: Dizziness Headaches Seizures (suizure disorder) Denies:: Alzheimer's Disease CVA Dementia Parkinson's Disease Hx of GI Problems?: Yes Gastrointestinal History: Positive for:: Gastroesphageal Reflux (Rita monterroso 1995) Heartburn Hiatal Hernia Denies:: Diverticulitis Gastrointestinal Bleeding Hepatitis Rectal Bleeding Hx of Problems?: No Genitourinary History: Denies:: HX of Hemodialysis Kidney Stones Urinary Tract Infection HX of Peritoneal Dialysis: No Female Hx: Denies:: Currently Endometriosis Pelvic Inflammatory Problems with Breasts? (right breast biopsy done) Hx Musculoskeletal Problems?: Yes Musculoskeletal History: Positive for:: Back Injury (Back surgery x4 L4-5, S- 1 1984, 2010, T 2010) Denies:: Joint Replacement Musculoskeletal Trauma Hx of Psycho/Social Problems?: Yes Psycho Social History: Positive for:: Anxiety Hx Depression Denies:: Bipolar Disorder Suicide Attempt Hx Surgeries?: Yes (multiple back, neck fusion, acromoplasty both shoulders, lap loc.) Hx Any Other Health Problems?: Yes Other History: Positive for:: Endocrine Disease Hospitalization (Pnuemothorax) Denies:: Cancer Thyroid Disease History Blood Transfusions: Positive for:: Accept Blood Products? Denies:: Blood Transfuse Reaction Blood Transfusions Hx Diabetes: YesBedside Blood Glucose: 200 Hx Alcohol Use: NoHx Substance Use: No Smoking Status: Never Smoker Have You Smoked inLast 12 mo: No Stop/Bang Treated for Sleep Apnea?: Yes Do You Have a CPAP Machine?: Yes S-Snoring: Do You Snore Loudly: No T-Tired: feel tired, fatigued: Yes O-Obsered: Observed not breath: No P-Blood Pressure: treated: Yes B- Body Mass Index > 35 kg/m2: Yes A- Age over 50: Yes N- Neck Large Circumference: Yes G- Gender Male: No KENAN Total Score: 5 KENAN Risk Assessment: High Risk, =/>3 Yes KENAN Category 4 OutPt Procedure: Yes Risk Assessment Category Category 1A: Patient has history of documented sleep apnea, and HAS NOT received any narcotic, sedative or anesthesia administration during this stay. Category 1B: Patient has history of documented sleep apnea, and HAS received any narcotic , sedative or anesthesia administration during this stay Category 2: Patient has SUSPECTED Obstructive Sleep Apnea, and HAS received any narcotic , sedative or anesthesia administration during this stay. Category 3: Patient has SUSPECTED Obstructive Sleep Apnea and HAS NOT received narcotic, sedative or anesthesia administration during this stay. Category 4: Outpatient in Procedural Areas with known sleep apnea or who screen positive for High Risk via the STOP/BANG questionnaire. Exam Exam Vital Signs Vital Signs Date Time Temp Pulse Resp B/P Pulse Ox O2 Delivery O2 Flow Rate FiO2 06/15/16 11:42 36.5 87 22 96/54 96 Nasal Cannula 2.00 06/15/16 11:29 87 06/15/16 09:35 37.1 84 24 92/55 97 Nasal Cannula 2.00 06/15/16 08:01 82 96 Nasal Cannula 2.50 06/15/16 07:41 78 16 94 Room Air 06/15/16 05:25 96 06/15/16 04:47 36.7 75 14 117/73 92 Room Air General Appearance: Alert, Oriented X3, Cooperative, No Acute Distress HEENT/AIRWAY: MP 2 Lungs: Clear to Auscultation, Normal Air Movement Heart: Exam Unremarkable, Regular Rate/Rhythm, No Murmurs/Rubs/Gallops Meds/Labs/Diagnostics Admission Meds Current Medications Potassium Chloride In D5W/ Premix (Potassium Chloride 40 mEq/ D5W 500 mL/IV Premix) 500 ml @ 125 mls/hr Q4H ONCE IV Last administered on 06/14/16 18:28; Start 06/14/16 at 17:40; Stop 06/14/16 at 21:39; Status DC Aspirin (Aspirin Chewable) 324 mg ONCE ONCE PO Last administered on 06/14/16 18:22; Start 06/14/16 at 18:05; Stop 06/14/16 at 18:06; Status DC Amphetamine Aspartate/ Amphetam Sulf (Adderall) 30 mg BIDWM PO Last administered on 06/15/16 10:02; Start 06/15/16 at 08:00 Salmeterol Xinafoate/ Fluticasone (Advair 250-50) 1 puff BID INHALATION Last administered on 06/15/16 09:52; Start 06/15/16 at 08:30 Albuterol/ Ipratropium (DuoNEB Inh Soln) 3 ml TID NEB Last administered on 06/15 07:39; Start 06/15/16 at 08:30 Pregabalin (Lyrica) 75 mg BIDWM PO Last administered on 06/15/16 09:54; Start 06/15/16 at 08:00 Fluoxetine HCl (Prozac) 40 mg DAILY PO Last administered on 06/15/16 09:53; Start 06/15/16 at 08:30 Lamotrigine (LaMICtal) 400 mg BID PO Last administered on 06/15/16 09:54; Start 06/15/16 at 08:30 Loratadine (Claritin) 10 mg DAILY PO Last administered on 06/15/16 09:54; Start 06/15/16 at 08:30 Topiramate (Topamax) 50 mg BID PO Last administered on 06/15/16 09:53; Start 06/15/16 at 08:30 Bacitracin Zinc 1 applic 1 applic BID TOPICAL Last administered on 06/15/16 09 :52; Start 06/14/16 at 22:30 Potassium Chloride/Sodium Chloride (Normal Saline + KCl 20 mEq/L) 1,000 ml @ 80 mls/hr [id number] IV Last administered on 06/15/16 02:04; Start 06/14/16 at 22 :30 Ropinirole HCl (Requip) 4 mg BID PO Last administered on 06/15/16 09:55; Start 06/14/16 at 22:50 Insulin Human Lispro (HumaLOG Insulin Inj) WMHS SUBQ Last administered on 06/15 11:11; Start 06/15/16 at 08:00 Heparin Sodium (Porcine) (Heparin Inj) 5,000 unit Q8 SUBQ Last administered on 06/15/16 09:52; Start 06/15/16 at 00:30 Prednisone (Deltasone) 40 mg Taper DAILYWM PO Last administered on 06/15/16 09 :53; Start 06/15/16 at 08:00; Stop 06/27/16 at 07:59 Potassium Chloride 40 meq 40 meq ONCE ONCE PO Last administered on 06/15/16 09:51; Start 06/15/16 at 09:00; Stop 06/15/16 at 09:03; Status DC Potassium Chloride/Dextrose/ Water (Potassium Chloride Inj/D5W) 515 ml @ 171.667 mls/hr Q3H ONCE IV Last administered on 06/15/16 09:53; Start at 09:00; Stop 06/15/16 at 11:59; Status DC Bedside Blood Glucose: 200 Labs Test 06/14/16 16:15 06/14/16 23:50 06/15/16 03:40 06/15/16 08:06 Neutrophils (%) (Auto) 80.9% (40-74) Lymphocytes (%) (Auto) 11.7% (14-46) Monocytes (%) (Auto) 5.9% (4-12) Eosinophils (%) (Auto) 0.1% (0-5) Basophils (%) (Auto) 0.1% (0-3) Prothrombin Time 10.8sec (8.1-12.5) Prothromb Time International Ratio 1.01ratio Activated Partial Thromboplast Time 22.8sec (22.8-33.0) Troponin T 0.010ug/L (0.0-0.011) White Blood Count 14.9th/mm3 (3.8-10.1) Red Blood Count 4.82mil/mm3 (3.90-5.20) Hemoglobin 14.7g/dL (12.0-15.6) Hematocrit 43.7% (35.0-46.0) Mean Corpuscular Volume 90.7fL (81-100) Mean Corpuscular Hemoglobin 30.5pg (27.0-35.0) Mean Corpuscular Hemoglobin Concent 33.6% (32.0-37.0) Red Cell Distribution Width 14.5% (12.3-15.4) Platelet Count 396bil/L (150-400) Sodium Level 136mEq/L (134-144) Potassium Level 2.6mEq/L (3.5-5.2) Chloride Level 83mEq/L (97-108) Carbon Dioxide Level 32mmol/L (18-29) Blood Urea Nitrogen 44mg/dL (6-24) Creatinine 1.78mg/dL (0.57-1.00) Estimat Glomerular Filtration Rate 43mL/min (>59) Glucose Level 121mg/dL (60-99) Calcium Level 9.5mg/dL (8.5-10.1) Total Bilirubin 0.5mg/dL (0.0-1.2) Aspartate Amino Transf (AST/SGOT) 53U/L (0-50) Alanine Aminotransferase (ALT/SGPT) 73U/L (0-32) Alkaline Phosphatase 78U/L (25-150) Total Protein 6.9g/dL (6.4-8.4) Albumin 4.3g/dL (3.4-5.0) Test 06/15/16 09:40 Magnesium Level 3.1mg/dL (1.6-2.6) Total Creatine Kinase 131U/L (21-215) Plan Impression Patient chart reviewed, patient interviewed and anesthestic plan with risks, benefits, and alternatives discussed, and informed consent obtained. ASA Physical Status: ASA3 Severe Disease (Acute CVA, DM, BMI 35) Anesthetic Plan: MAC Bene/Risks/Altern/Consents: Yes HP Complete Prior to Induction: Yes Jose Angel Haley MD Jun 15, 2016 12:42
--- NOTE | 2016-06-15 12:53 | NUR ---
Social Work- Brief Note Data: EMR reviewed. Pt is a 55 year old female admitted 06/14/16 for CVA. PT eval is pending. OT eval is pending. Pt's insurance is [employer] and [employer] and PW Blind/Disabled. Pt's PCP is Reggie Mitchell. DORY met with pt at bedside with her Joel and daughter Alysha. Pt resides in [place] with her family where she receives some assistance with ADLs. Pt states she is well supported by her family. Pt has no DPOA on file, SW encouraged pt to complete this. Pt has history of SNF at [facility]. Pt likely to discharge to SNF, DORY explained recommendations to pt who is agreeable. SNF choice list provided. Pt chose [facility]. DORY spoke with Sandy, admissions at [facility], who is agreeable to accepting pt with MD Mitchell to follow. Access given, Facesheet faxed. Insurance Authorization will be required at discharge. Pt to discharge to [facility] with MD Stephen nair follow pending insurance authorization. Paperwork in chart. PASRR in folder. SW will continue to follow. Assessment: Pt who would likely benefit from SNF. Plan: Pt to discharge to [facility] with MD Stephen weiss pending insurance authorization. Paperwork in chart. PASRR in folder. SW will continue to follow. Susan Singh MSW
[2016-06-15] MEDS ORDERED: Glucose 40% Oral Gel 15 Gm Tube PO PRN (13:05)
[2016-06-15] MEDS: guaiFENesin 20 mg/mL 10 mL Syrup PO PRN (13:11)
--- NOTE | 2016-06-15 13:34 | PCM.PNMED ---
Subjective Date of Service Jun 15, 2016 Subjective Patient admitted yesterday.She continues to have profound left sided deficit. Speech for the most part is clear and in full sentences. Denies pain, shortness of breath, nausea. Many family members are by her bedside with lots of questions. She will have MRI stroke protocol with conscious sedation on Friday. She wanted the provider know that they will see "white round spots in her brain " that were seen on the previous MRIs in the past. Exam Vital Signs Vital Sign - Last Date Time Temp Pulse Resp B/P Pulse Ox O2 Delivery O2 Flow Rate FiO2 06/15/16 11:42 36.5 87 22 96/54 96 Nasal Cannula 2.00 Intake and Output 06/14/16 06/14/16 06/15/16 Cumulative From/Thru 15:00 23:00 07:00 06/14/16 16:37 - 06/15/16 06:21 Output Total 1 ml 1 ml Balance -1 ml -1 ml Output Urine Total 1 ml 1 ml Exam General: Obese, pleasant female in mild distress, alert and oriented x 3 HEENT: Bruised nose, raccoon eyes, anicteric sclera, extraocular movement intact , left eye ptosis, hearing intact Neck: Supple without adenopathy Lungs: Clear to auscultation bilaterally, no accessory muscle Heart: Regular rate and rhythm, no murmurs appreciated, equal radial pulses Abdomen: Obese, soft, nontender, normoactive bowel sounds, no hepatosplenomegaly Extremities: No edema, clubbing, cyanosis, restless legs, right side Neuro: left nasolabial fold less prominent, no sensation left face, left upper extremity, diffusely intermittent tremors of right upper extremity, strength grossly intact of right upper and lower limbs 4+/5, strength left upper extremity 0/5, lower extremity 1+/5, mild intermittent apraxia Lab and Diagnostics Result Diagram: 06/15/16 0340 06/15/16 0806 X-Rays, CTs and MRIs CT BRAIN (TPA) IMPRESSION: 1. No acute intracranial findings. Dictated and approved by: Juany Torres M.D. on 06/14/2016 at 16:21 CT FACE WITHOUT CONTRAST IMPRESSION: 1. Minimally displaced nasal bone fractures. 2. Questionable minimally displaced anterior wall right maxillary sinus fracture versus vascular groove. Dictated and approved by: Juany Torres M.D. on 06/15/2016 at 9:03 CT BRAIN WITHOUT CONTRAST IMPRESSION: 1. New deep white matter hypodensity within the right cerebellar hemisphere when compared with the prior study. Differential considerations include subacute infarct and slice registration artifact. MRI would be helpful to further characterize this finding if clinically indicated. Short interval repeat CT may also be helpful to exclude artifact from the differential. These findings were discussed with Dr. Chavez at 6:15 PM on 06/13/16. Dictated and approved: Juany Torres M.D. on 06/15/2016 at 18:15 12-lead ECG Sinus rhythm, heart rate 92, poor R wave progression Assessment & Plan Yolis Ornelas is a 55-year-old female with diabetes mellitus with diabetic neuropathy, insulin dependent, bilateral foot drop, binasal hemianopsia, COPD, oxygen dependent, 3 liters at home, CHF, bipolar disorder, restless leg syndrome and upper extremities tremors, osteoarthritis and sleep apnea admitted for cerebrovascular accident, hypokalemia, acute kidney injury, and facial trauma due to recent fall. 1. Acute cerebrovascular accident, present on admission. Active - Patient presented with left sided weakness, facial sensation loss, mild intermittent apraxia and aphasia.Dr. Birch is her neurologist - CT brain negative - Repeat CT brain revealed new deep white matter hypodensity within the right cerebellar hemisphere when compared with the prior study. Differential considerations include subacute infarct and slice registration artifact. MRI would be helpful to further characterize this finding if clinically indicated. Short interval repeat CT may also be helpful to exclude artifact from the differential. - MRI brain stroke protocol under conscious sedation (patient with extreme claustrophobia) was attempted, however, patient did not fit in and desaturated. - Allow permissive hypertension - Continue aspirin, 325 mg daily - Consider switching and/or adding plavix, 75 mg daily - Atorvastatin, 40 mg daily - Physical therapy, occupational therapy, speech and swallow evaluation - Neurology consulted, Dr. Nguyen. We appreciated he expertise. - ECHO ordered - Carotid duplex ordered 2. Hypokalemia, chronic, present on admission. Active - Hold home diuretics (lasix, 120 mg and HCTZ, 50 mg daily by mouth) - Potassium chloride in D5W, 40 meq intravenously and potassium chloride 40 meq orally - Monitor labs 3. Acute kidney injury, present on admission. Active - Normal kidney function upon recent discharge for COPD exacerbation just a few days ago - Continue intravenous hydration - Monitor labs 4. Leukocytosis, present on admission. Active - Most likely due to prednisone taken for COPD exacerbation - Trending down, UA pending, continue to monitor 5. Facial trauma secondary to ground level fall, present on admission. Active - Most likely due to diabetic neuropathy, bilateral foot drop, may be possible seizure (patient denies, CPK pending), orthostatic hypotension, hypokalemia - CT face revealed minimally displaced nasal bone fractures with questionable minimally displaced anterior wall right maxillary sinus fracture versus vascular groove - Will consult ENT - Tylenol for pain 6. Diabetes mellitus, chronic, present on admission. Active - Insulin dependent x 10 years - Poorly controlled, Hb A1c 13.5 - Nutritional and high dose correctional insulin 7.Probable asymptomatic urinary tract infection, present on admission. Active - Start ceftriaxone, 1000 mg intravenously daily 8. Transaminitis, chronic, present on admission. Active - Continue to monitor Chronic issues known prior to admission, present on admission Upper extremity DVT secondary to PICC line, treated with warfarin Restless leg syndrome / upper extremities tremors - her outpatient neurologist ordered MRI under anesthesiology, Bilateral drop foot, binasal hemianopsia Diabetic neuropathy/CKD Asthma / sleep apnea / COPD / home O2 3LNC / Pneumothorax CHF / DLP / HTN GERD Bipolar disorder / seizure disorder / migraines Anxiety/depression/ADHD Sinusitis/fractured nose 3 --resume home meds (not complete) --prn CPAP if comfortable for face Disposition: inpatient status Pain Evaluation: Adequate Pain Control GI Prophylaxis: Proton Pump Inhibitor VTE Prophylaxis: Sub-Q Heparin (Unfractionated) Resuscitation Status: CPR: Attempt Resuscitation Attending Statement The patient was seen and examined together with on 06/15/16 and I agree with the history, exam and plan as outlined in the note above. Brandy Osborn DO Jun 15, 2016 13:34 Daniel Pryor MD Jun 15, 2016 22:10
--- NOTE | 2016-06-15 14:56 | PCM.ANEP2 ---
Post Anesthesia Evaluation ASA/CMS Post Anesthesia VS in Patient's Normal Range?: Yes Resp Stable; Airway Patent?: Yes CV Function & Hydration Stable: Yes Mental Status Recovered?: Yes Pain control Satisfactory?: Yes N/V Control Satisfactory?: Yes Jose Angel Haley MD Jun 15, 2016 14:56
--- NOTE | 2016-06-15 14:56 | PCM.ANEP1 ---
Post Anesthesia Phase 1 PACU Phase 1 Assessment Vital Signs Vital Signs Date Time Temp Pulse Resp B/P Pulse Ox O2 Delivery O2 Flow Rate FiO2 06/15/16 11:42 36.5 87 22 96/54 96 Nasal Cannula 2.00 06/15/16 11:29 87 06/15/16 09:35 37.1 84 24 92/55 97 Nasal Cannula 2.00 06/15/16 09:35 Supplement Oxygen 06/15/16 08:01 82 96 Nasal Cannula 2.50 06/15/16 07:41 78 16 94 Room Air Anesthetic Administered: MAC (Patient not able to fit well into MRI scanner due to size;not able to do scan) Level of Alertness: Awake, talking BECK's with Equal Strength: Yes Pain: No Nausea or Vomiting: No Oxygen Delivery: Nasal Cannula Lungs: Clear to Auscultation, Normal Air Movement Jose Angel Haley MD Jun 15, 2016 14:56
[2016-06-15 16:09] LABS: APPEARANCE,URINE HAZY (CLEAR,HAZY); COLOR,URINE YELLOW (YELLOW); OCCULT BLOOD,URINE NEGATIVE (NEGATIVE); UROBILINOGEN,URINE NORMAL (NORMAL)
[2016-06-15 17:24] LABS: Magnesium 2.7 mg/dL (1.6-2.6)
[2016-06-15] MEDS ORDERED: Insulin LISPRO 300 Unit/3 mL Inj SUBQ SCH (17:30)
[2016-06-15] MEDS: cefTRIAXone Inj 1,000 MG in Dextrose 5% Minibag Plus 50 ML IV SCH (17:57)
--- NOTE | 2016-06-15 18:17 | DRSVH ---
PROCEDURE: CT BRAIN WITHOUT CONTRAST ([id number]) INDICATIONS: r/o stroke TECHNIQUE: Noncontrast 4.5 mm thick angled axial sections acquired from the foramen magnum to the vertex, with c oronal reformats. COMPARISON: [facility], CR, XR CHEST 1VW (PORTABLE), 06/09/2016, 3:13. [facility], CT, BRAIN (TPA), 06/14/2016, 16:16. FINDINGS: Image quality: Excellent. CSF spaces: Basal cisterns are patent. No extra-axial fluid collections. Ventricles are normal in size and shape. Brain: No midline shift. No intracranial masses or hemorrhage. Delvalle-white matter interface is over all normal. There is subtly increased hypodensity within the deep white matter of the right cerebell ar hemisphere with respect to the left (series 3, images 6 and 7). This is new when compared with the study dated 06/14/16. Skull and face: Calvarium and visualized facial bones are intact, without suspicious lesions. Sinuses: Visualized sinuses and mastoids are clear. IMPRESSION: 1. New deep white matter hypodensity within the right cerebellar hemisphere when compared with the pr ior study. Differential considerations include subacute infarct and slice registration artifact. MRI would be helpful to further characterize this finding if clinically indicated. Short interval repeat CT may also be helpful to exclude artifact from the differential. These findings were discussed with Dr. Chavez at 6:15 PM on 06/13/16. Dictated by: Juany Torres M.D. on 06/15/2016 at 17:53 Approved by: Juany Torres M.D. on 06/15/2016 at 18:15
[2016-06-15] MEDS: Insulin Human REGular 300 Unit/3 mL Inj SUBQ PRN ×2 (18:18→23:09)
--- NOTE | 2016-06-15 19:26 | NUR ---
Scans/Meds/Blood sugar Pt had facial CT today and attempted head MRI with conscious sedation, Pt unable to tolerate conscious sedation per verbal report and head MRI aborted, f/u head CT ordered. Dr. Chavez came in and evaluated Pt and f/u head CT and ordered an additional head CT f/u for 2229, mac FREGOSO RN made aware. Pt reports taking Cymbalta at night and dose scheduled for this am, spoke with MD and timing changed to HS. Pt reporting headache/persistent cough, tylenol and tussin PRNs added to eMAR, tussin effective for cough, tylenol ineffective for headache. Pt also reports taking Vyvanse 70mg Qam for RA, MD made aware and order placed, medication non-formulary, medication brought to pharmacy to be relabeled for use while in hospital. Pt also reported using U-500 insulin at home, copy of Pt's sliding scale given to MD. Pt's blood sugars 200s during first half of shift, Pt dosed with sliding scale as ordered. PRN 50 unit U-500 that was ordered not available in Pt's drawer, spoke with pharmacy and U-500 not available, pharmacist verbalized that they spoke with MD and order changed to standard humulin-R at same dosage, Pt resumed diet and blood sugar in the 400s at dinnertime, Pt given PRN 50 units + 12 units of sliding scale insulin, mac FREGOSO RN made aware.
[2016-06-15] MEDS: DULoxetine 30 mg DR Capsule PO SCH (23:12)
[2016-06-15] MEDS: Tiotropium 18mcg/Cap 5 Capsule Inhaler Kit INHALATION SCH (23:21)
[2016-06-16] VITALS (10 sets, daily range): BP systolic 90–134; BP diastolic 42–80; PULSE 74–99; RESP 16–20; O2SAT 93–97
[2016-06-16 04:42] LABS: BASOPHILS % (AUTO) 0.1 % (0-3); EOSINOPHILS % (AUTO) 0.6 % (0-5); MONOCYTES % (AUTO) 9.7 % (4-12); Mean Corpuscular Volume 89.8 fL (81-100); NEUTROPHILS % (AUTO) 54.9 % (40-74); Platelet Count 293 bil/L (150-400)
--- NOTE | 2016-06-16 05:57 | CONS ---
[address] [address] CONSULTATION REPORT PATIENT: JAILENE LOBATO : 1960 MR#: [id number] ADMIT: 06/14/2016 JOB ID: [id number] DATE OF SERVICE: 06/15/2016 CHIEF COMPLAINT: Sudden onset of left upper and left lower extremity weakness. HISTORY OF PRESENTING ILLNESS: The patient is a pleasant 55-year-old, right-handed woman with multiple medical problems, who does follow with my partner, Dr. Loretta Nguyen, who reportedly had an episode of falling on June 14, 2016 when she face planted into a bathtub and developed subsequent raccoon eyes. At that time she reports that she felt lightheaded and her feet gave way. She did not lose consciousness. There were no seizures seen. I did call her , Joel, and discussed the history in detail with him. She presented to the emergency room on June 15, 2016 due to sudden onset of left upper and left lower extremity weakness as well as slurred that is dysarthric speech which also appeared confused as well as paresthesias and left nasolabial fold flattening. She reports that she recently was treated with steroids for a chronic obstructive pulmonary disease exacerbation and was noted to have resolving cough and pleuritic pain following Levaquin and prednisone. REVIEW OF SYSTEMS: A complete review of systems was performed and was remarkable for above noted. FAMILY HISTORY: There is a strong family history of diabetes and myocardial infarctions. SOCIAL HISTORY: Occasional alcohol. No tobacco, alcohol, or drugs otherwise. PAST MEDICAL HISTORY: She does have a history of an upper extremity deep venous thrombosis secondary to a PICC line treated with warfarin. She does have a history of restless legs syndrome and essential tremor, diabetic neuropathy, diabetes mellitus type 2, asthma, chronic obstructive pulmonary disease, congestive heart failure, gastroesophageal reflux disease, bilateral drop foot likely secondary to diabetic neuropathy. She reports that sensation is limited all the way to her knees. She does have a history of osteoarthritis, osteomyelitis, binasal hemianopsia (she reports that she was not given a clear explanation as to what the etiology of the binasal hemianopsia was), chronic obstructive pulmonary disease, and sleep apnea. She is on 3 L nasal cannula of home oxygen. She also has a history of sepsis that developed following a diabetic foot injury in June 2014. She does have a history of seizure disorder, bipolar disorder, and hyperlipidemia. PAST SURGICAL HISTORY: She has a history of a left knee and left shoulder and right shoulder surgery. The right shoulder surgery occurred twice. She has a history of an L4-L5 laminectomy in 1994, an L4-L5 laminectomy in 2010, a laminectomy of C5-C6 in 2009, and a laminectomy at T11-12 in 2010. She has a history of a Jayce fundoplication in 1995. She has a history of bilateral cataract surgery. She has a history of anxiety and depression as well as pneumothorax and sinusitis and a fractured nose on 3 occasions. ALLERGIES: She is allergic to: 1. CONTRAST. 2. SULFA. 3. IODINE. 4. KETOROLAC. 5. NAPIRADINE. 6. POVIDIONE. 7. CEFAZOLIN. 8. SHELLFISH. MEDICATIONS: Include Adderall, vitamin C, vitamins D, aspirin 81 mg daily, Symbicort, calcium carbonate, chromium, Cymbalta, Prozac, furosemide, hydrochlorothiazide, Humulin, Atrovent, lamotrigine, Vivanse, Claritin, Prilosec, potassium chloride, Lyrica, ropinirole 4 mg p.o. b.i.d., simvastatin 80 mg daily, Spiriva, Topamax, and zinc. IMAGING STUDIES: A CT of her head was performed, which demonstrated no acute intracranial findings. A CT of her face was performed demonstrating minimally displaced nasal bone fractures, questionable minimally displaced anterior wall right maxillary sinus fracture versus vascular groove. LABORATORY STUDIES: WBC of 14.9, hemoglobin of 14.7, hematocrit 43.7, and platelets of 396. Chemistries: Sodium 130, potassium 3.2. Chloride was 82. Bicarb was 26. BUN was 38. Creatinine was 1.54. Glucose 337. Coags: PT was 10.8, INR 1.01, and PTT 22.8. Urinalysis: Urine was yellow, hazy, negative for protein, trace ketones, trace leukocyte esterase, 0-2 RBCs, 6-10 WBCs, moderate urine epithelial cells. REVIEW OF SYSTEMS: A complete review of systems was performed and was remarkable for above-noted. She reports otherwise she has been feeling well. Urine culture is presently pending. PHYSICAL EXAMINATION: Vital signs: Temperature 36.6, pulse of 94 respiratory rate of 18, blood pressure 96/55, pulse oximetry 98% on 2 L nasal cannula. General, she is a well-developed, well-nourished, mildly anxious woman in no acute distress. HEENT: Head normocephalic and atraumatic. Neck is supple. No carotid bruits were auscultated. Negative Kernig. Negative Brudzinski. Chest trace wheezes. Heart regular rate and rhythm. Abdomen soft, nondistended, nontender. Extremities no cyanosis, clubbing, or edema. There is a bandage on her left great toe, that is digit 1. NEUROLOGIC EXAMINATION: Mental status: She is awake, alert, oriented x3. Speech clear and fluent with intact comprehension. There was no aphasia. She did have a dysthymic mood and did appear anxious. She was tearful at times. Cranial nerves: Pupils equal, round, reactive to light. Extraocular movements were smooth and conjugate with no evidence of nystagmus. There was a mild degree of ptosis of the left eye, 25%. There was ecchymosis apparent bilaterally along the borders of the nares. Facial sensation was diminished to light touch and temperature over left side of her face. There was a mild flattening of the left nasolabial fold. Tongue was midline. Sternocleidomastoid and trapezii are 5/5 bilaterally. Motor there is a dense left hemiparesis of the left upper and left lower extremities. Sensation was diminished to light touch and temperature in the left upper and left lower extremities. Deep tendon reflexes were diminished throughout. Plantars were silent bilaterally. Coordination aroddf-or-mpds was intact on the right, could not perform on the left. Gait was deferred. IMPRESSION: Given the clinical history and examination, my suspicion is that she did have a lacunar infarct affecting the left side of her face, the left upper extremity, and the left lower extremity. Risk factors definitely include her diabetes and hyperlipidemia. Given the recent prednisone burst her blood sugars may also have been further elevated compared to baseline. She reports that she does take aspirin on a regular basis and has been compliant with this medication. My suspicion is that her stroke is likely a lacunar stroke secondary to these multiple stroke risk factors including diabetes mellitus type 2, hypertension, and hyperlipidemia. Initial NIH Stroke Scale was 12. She did not appear to have any visual field loss, facial palsy mild on the left with a score of 1. Left motor in the arm is +3, no effort against gravity. In the left lower extremity is +2. There is diminished sensation for a score of 1. No aphasia. A mild degree of dysarthria for a score of 1 and extension for a score of 1 for a total NIH Stroke Scale today of 9. There are no symptoms suggestive of posterior circulation related disease. My suspicion is that this stroke is lacunar. However I do recommend also obtaining a carotid duplex and an echocardiogram. I do recommend placement on stroke protocol. There was an attempted to obtain a magnetic resonance imaging study of her brain with sedation, however this was unsuccessful due to her severe restless leg syndrome as well as her chronic obstructive pulmonary disease. She reports to me that in the past it has been successful when she has been intubated. RECOMMENDATIONS: 1. Place on stroke protocol. 2. Obtain carotid duplex. 3. Obtain echocardiogram. 4. I recommend a full stroke workup. 5. I do recommend a repeat computed tomography scan of her head without contrast. A repeat one was performed and I reviewed findings with Dr. Torres who recommended a repeat study in 4 hours due to the abnormal appearance of the right cerebellum. There is a suspicion that this is likely artifact, however she does recommend a repeat study in 4 hours. I discussed this with her at 6:30 p.m. and have ordered it to be performed at 10:30 p.m. oren. My suspicion is that it does likely represent artifact as she does not clearly have symptoms suggestive of a posterior circulation etiology. However, I do recommend completion of full stroke workup. Although she was on aspirin 81 mg at the time of the event my suspicion is that this was not an aspirin failure and this is likely due to elevated blood sugars and her underlying stroke risk factors including diabetes mellitus type 2. She was recently on a course of steroids which likely raised her blood sugars. In addition to her other stroke risk factors including hypertension, hyperlipidemia. I recommend continued optimization of control of these stroke risk factors. I recommend a full physical therapy and occupational therapy and speech therapy evaluation. I recommend placement on the stroke protocol. I do recommend that she obtain a magnetic resonance imaging study of her brain. Due to contrast allergy an angiogram cannot be performed. If necessary I do recommend that she obtain a magnetic resonance imaging study of her brain with sedation and intubation. I do not believe that this has to be performed stat, but it may be helpful at some point for her to have this study. I recommend continue close neurologic monitoring with neuro checks. She has not had any reported seizures recently. I do recommend obtaining a Lamictal and Topamax level. It is unlikely that this represents David's paralysis given the fact that she does not have a history of any seizures that she can recall and certainly not a witnessed seizure. Although this certainly remains in the differential it is far less likely. Will continue to follow. Thank you, again, Dr. Mccain, for allowing me to participate in the care of your patient. Please feel free to contact me with any questions or concerns. RUBEN
[2016-06-16] MEDS ORDERED: KCl 40 mEq/D5W 500 mL 40 MEQ in IV Premix 500 EACH IV ONE (06:20)
--- NOTE | 2016-06-16 06:38 | NUR ---
persistant cough - activity patient with persistant cough and stuffy nose. 3 liters nc. pulse ox 92-94 percent. patient able to assist with turns. explained importance of turning to patient for optimal skin care patient verbalized understanding.
[2016-06-16] MEDS: 0.9% NaCl + KCl 20 mEq/L 1,000 ML IV SCH ×2 (07:18→21:48)
[2016-06-16] MEDS: Insulin LISPRO 300 Unit/3 mL Inj SUBQ SCH ×4 (08:00→22:28)
[2016-06-16] MEDS: predniSONE 20 mg Tablet PO SCH (08:28)
[2016-06-16] MEDS: cefTRIAXone Inj 1,000 MG in Dextrose 5% Minibag Plus 50 ML IV SCH (08:29)
[2016-06-16] MEDS: Heparin 5,000 Unit/mL Inj SUBQ SCH ×2 (08:31→15:44)
[2016-06-16] MEDS: Bacitracin Zinc 15 Gm Ointment TOPICAL SCH ×2 (08:31→20:58)
[2016-06-16] MEDS: Fluticasone-Salmererol 250-50 Inhaler INHALATION SCH ×2 (08:32→20:57)
[2016-06-16] MEDS: Pantoprazole 20 mg ER24 Tablet PO SCH (08:33)
[2016-06-16] MEDS: Amphetamines (Mixed) 10 mg Tablet PO SCH ×2 (08:34→17:30)
[2016-06-16] MEDS: VYVANSE 70 MG PO SCH (08:34)
[2016-06-16] MEDS: lamoTRIgine 100 mg Tablet PO SCH ×2 (08:34→20:58)
[2016-06-16] MEDS ORDERED: Potassium Chloride 20 mEq SR Tablet PO ONE ×2 (08:35→09:25)
--- NOTE | 2016-06-16 08:39 | DRSVH ---
PROCEDURE: CT BRAIN WITHOUT CONTRAST ([id number]) INDICATIONS: Stroke TECHNIQUE: Noncontrast 4.5 mm thick angled axial sections acquired from the foramen magnum to the vertex, with c oronal reformats. COMPARISON: [facility], CT, BRAIN W/O CONTRAST, 09/25/2012, 20:52. [facility] al, CT, BRAIN (TPA), 06/14/2016, 16:16. [facility], CT, CT BRAIN WO CON, 06/15/2016, 17:37 . FINDINGS: Image quality: Excellent. CSF spaces: Basal cisterns are patent. No extra-axial fluid collections. The ventricles are symmet prudence in size and shape. Brain: Subtle hypodensity in the right occipital lobe and cerebellum are again noted, suspicious for acute infarcts. No intracranial bleeds or masses. There is cerebral volume loss for age, with resul tant ventricular and sulcal prominence. There are periventricular and deep white matter chronic smal l vessel ischemic changes. There is intracranial internal carotid artery atherosclerosis. Skull and face: Calvarium and visualized facial bones appear intact, without suspicious lesions. Sinuses: Mild bilateral ethmoid sinus mucosal thickening. The mastoids are clear. IMPRESSION: Subtle hypodensity in the right occipital lobe and cerebellum suspicious for acute infarc ts. Recommend clinical correlation. If clinical clinical suspicion for pathology is high, MRI is sug gested for further evaluation. Dictated by: Kenneth Stevens M.D. on 06/16/2016 at 8:33 Approved by: Kenneth Stevens M.D. on 06/16/2016 at 8:37
[2016-06-16] MEDS: Albuterol-Ipratropium 3 mL Inhalation Solution NEB SCH ×2 (09:19→14:41)
[2016-06-16] MEDS: oxyCODONE-Acetamin 5-325 mg Tablet PO PRN ×2 (10:28→17:42)
[2016-06-16] MEDS: guaiFENesin 20 mg/mL 10 mL Syrup PO PRN ×2 (12:42)
[2016-06-16] MEDS ORDERED: Codeine-guaiFENesin 5 mL Syrup PO PRN (13:00)
[2016-06-16] MEDS ORDERED: Benzocaine-Menthol Lozenge 2/Pkg PO ONE (13:00)
--- NOTE | 2016-06-16 13:15 | PCM.PNMED ---
Subjective Date of Service Jun 16, 2016 Subjective No new complaints. Continues to have left-sided weakness without change. Pain on face and nasal bridge controlled. Continues to residual cough from recent COPD exacerbation. Afebrile. Exam Vital Signs Vital Sign - Last Date Time Temp Pulse Resp B/P Pulse Ox O2 Delivery O2 Flow Rate FiO2 06/16/16 12:19 36.8 99 18 133/80 93 Nasal Cannula 2.00 Intake and Output 06/15/16 06/15/16 06/16/16 Cumulative From/Thru 15:00 23:00 07:00 06/14/16 16:37 - 06/16/16 06:19 Intake Total 1756 ml 860 ml 2616 ml Output Total 200 ml 201 ml Balance 1556 ml 860 ml 2415 ml Intake Oral 520 ml 674 ml 1194 ml IV Total 1236 ml 186 ml 1422 ml Output Urine Total 200 ml 201 ml # Voids 2 3 5 Exam General: Obese, pleasant female in mild distress, alert and oriented x 3 HEENT: Bruised nose, raccoon eyes, anicteric sclera, extraocular movement intact , left eye ptosis, hearing intact Neck: Supple without adenopathy Lungs: Clear to auscultation bilaterally, no accessory muscle Heart: Regular rate and rhythm, no murmurs appreciated, equal radial pulses Abdomen: Obese, soft, nontender, normoactive bowel sounds, no hepatosplenomegaly Extremities: No edema, clubbing, cyanosis, restless legs, right side Neuro: left nasolabial fold less prominent, no sensation left face, left upper extremity, diffusely intermittent tremors of right upper extremity, strength grossly intact of right upper and lower limbs 5/5, strength left upper extremity 0/5, lower extremity 1+/5, mild intermittent apraxia IVs and Medications Medications Reviewed: Medications were reviewed in detail Lab and Diagnostics Result Diagram: 06/16/1642406/16/16424 X-Rays, CTs and MRIs CT BRAIN (TPA) IMPRESSION: 1. No acute intracranial findings. Dictated and approved by: Juany Torres M.D. on 06/14/2016 at 16:21 CT FACE WITHOUT CONTRAST IMPRESSION: 1. Minimally displaced nasal bone fractures. 2. Questionable minimally displaced anterior wall right maxillary sinus fracture versus vascular groove. Dictated and approved by: Juany Torres M.D. on 06/15/2016 at 9:03 CT BRAIN WITHOUT CONTRAST IMPRESSION: 1. New deep white matter hypodensity within the right cerebellar hemisphere when compared with the prior study. Differential considerations include subacute infarct and slice registration artifact. MRI would be helpful to further characterize this finding if clinically indicated. Short interval repeat CT may also be helpful to exclude artifact from the differential. These findings were discussed with Dr. Chavez at 6:15 PM on 06/13/16. Dictated and approved: Juany Torres M.D. on 06/15/2016 at 18:15 12-lead ECG Sinus rhythm, heart rate 92, poor R wave progression Assessment & Plan Yolis Ornelas is a 55-year-old female with diabetes mellitus with diabetic neuropathy, insulin dependent, bilateral foot drop, binasal hemianopsia, COPD, oxygen dependent, 3 liters at home, CHF, bipolar disorder, restless leg syndrome and upper extremities tremors, osteoarthritis and sleep apnea admitted for cerebrovascular accident, hypokalemia, acute kidney injury, and facial trauma due to recent fall. 1. Acute cerebrovascular accident, present on admission. Active - Patient presented with left sided weakness, facial sensation loss, mild intermittent apraxia and aphasia.initial NIHSS 12 - CT brain #[address] #2 brain revealed new deep white matter hypodensity within the right cerebellar hemisphere when compared with the prior study.CT #3 done per neurologist rec shows Subtle hypodensity in the right occipital lobe and cerebellum suspicious for acute infarcts.all in the first 24 done - MRI brain stroke protocol under conscious sedation (patient with extreme claustrophobia) was attempted, however, patient did not fit in and desaturated. Patient states she had to be intubated for MRI in 2011. Neurologist recommends getting MRI with intubation at some point but not now. - Allow permissive hypertension - Continue aspirin, dose increased to 325 mg daily - Considered switching and/or adding plavix, neurology does not think this is aspirin failure. He thinks recent change to modifiable risk/uncontrolled blood sugar due to steroid for COPD may have Contributed. - Atorvastatin, 40 mg daily - Physical therapy, occupational therapy, speech and swallow evaluation - Neurology consulted, Dr. Nguyen her outpatient neurologist. saw her on current admission. We appreciated his expertise. - ECHO ordered - Carotid duplex ordered 2. Hypokalemia, chronic, present on admission. Active - Hold home diuretics (lasix, 120 mg and HCTZ, 50 mg daily by mouth) - Potassium chloride in NS, 40 meq intravenously and potassium chloride 40 meq orally . Plan to discontinue IV fluids and may resume diuretics tomorrow - Monitor labs 3. Acute kidney injury, present on admission. Active - Normal kidney function upon recent discharge for COPD exacerbation just a few days ago - Continue intravenous hydration - Monitor labs 4. Leukocytosis, present on admission. Active - Most likely due to prednisone taken for COPD exacerbation - Trending down, UA pyuria, ceftriaxone initiated. Awaiting culture 5. Facial trauma secondary to ground level fall, present on admission. Active - Most likely due to diabetic neuropathy, bilateral foot drop, may be possible seizure (patient denies, CPK negative), orthostatic hypotension, hypokalemia - CT face revealed minimally displaced nasal bone fractures with questionable minimally displaced anterior wall right maxillary sinus fracture versus vascular groove - consulted ENT Dr Peterson and he said he will see her - Tylenol for pain 6. Diabetes mellitus, chronic, present on admission. Active - Insulin dependent x 10 years - Poorly controlled, Hb A1c 13.5 - Nutritional and high dose correctional insulin -She uses U500 Home insulin regimen which is nonformulary here. She was given NPH 40 units twice a day with sliding scale on prior admission. will switch to NPH and follow glucose control closely. 7.Probable asymptomatic urinary tract infection, present on admission. Active - Started ceftriaxone, 1000 mg intravenously daily. Urine culture pending 8. Transaminitis, chronic, present on admission. Active - Continue to monitor 9. Seizure disorder -there was initial concern for breakthrough seizure causing fall and nasal fracture 1 day prior to stroke and second seizure causing Todds paralysis but this seems exceedingly unlikely given paralysis persisted -AED level pending Chronic issues known prior to admission, present on admission #Upper extremity DVT secondary to PICC line, treated with warfarin # Restless leg syndrome / upper extremities tremors - her outpatient neurologist ordered MRI under anesthesiology and scheduled for next , Bilateral drop foot, binasal hemianopsia #Diabetic neuropathy/CKD #Asthma / sleep apnea / COPD / home O2 3LNC #CHF / DLP / HTN # GERD #Bipolar disorder migraines Anxiety/depression/ADHD --prn CPAP if comfortable for face Disposition: inpatient status GI Prophylaxis: Proton Pump Inhibitor VTE Prophylaxis: Sub-Q Heparin (Unfractionated) Resuscitation Status: CPR: Attempt Resuscitation Daniel Pryor MD Jun 16, 2016 13:15
[2016-06-16] MEDS: Insulin Human NPH 100 Unit/mL 3 mL Inj SUBQ SCH (15:51)
--- NOTE | 2016-06-16 15:59 | DRSVH ---
[facility] [address] [place] [address] Echocardiogram Report Name: JAILENE LOBATO EStudy Date : 06/16/2016 Height: 68 in Hospital Exam Location: [facility] Weight: 241 lb Gender: Female BSA: 2.2 m2 : 1960 Age: 55 yrs BP: 133/80 mm Hg Reason For Study: CVA Ordering Physician: HOSPITALIST [facility] Performed By: Crista Vogel Referring Physician: Dr. Antony Rodríguez Interpretation Summary This is a limited echocardiogram for CVA. Bubble Study is performed. The left ventricle is grossly normal in size and systolic function is probably normal without obvious focal wall motion abnormalities but poor endocardial definition reduces the sensitivity for the detection of such. Assessment of diastolic parameters indicates normal left ventricular diastolic function and normal filling pressures. There has been no significant change since the previous study. The right ventricle grossly appears normal in size with probable normal systolic function and appears unchanged compared to the previous study. The interatrial septum appears intact with no evidence for an atrial septal defect or interatrial shunt by injection of contrast with and without valsalva. Procedure: This is a limited echocardiogram for CVA. Bubble Study is performed. Comparison is made with the echocardiogram of 06-11-2016.. The patient was in normal sinus rhythm during the exam. Left Ventricle: The left ventricle is grossly normal size. There is normal left ventricular wall thickness. Left ventricular systolic function is probably normal. There are no obvious focal wall motion abnormalities noted but poor endocardial definition reduces the sensitivity for the detection of such. Spectral Doppler of the mitral valve shows a normal E/A wave ratio. Assessment of diastolic parameters indicates normal left ventricular diastolic function and normal filling pressures. There has been no significant change since the previous study. Right Ventricle: The right ventricle grossly appears normal in size with probable normal systolic function. This is unchanged compared to the previous study. Atria: The interatrial septum is intact with no evidence for an atrial septal defect. Injection of contrast documented no interatrial shunt. MMode/2D Measurements & Calculations LVIDd LV martin. diameter/BSA (cm/m^2) LV sys. diameter/BSA (cm/m^2) : 4.9 cm LVIDs : 3.7 cm FS: 24.3 % IVSd : 0.8cm LVPWd : 0.9cm Doppler Measurements & Calculations MV E max julian MV E/A MV dec time MV P1/2t max julian : 134.1 cm/sec : 1.4 : 0.15 sec MV A max julian : 96.1 cm/sec MVA(P1/2t): 5.0 cm2 MV P1/2t: 44.3 msec Reading Physician:03:58 PM
--- NOTE | 2016-06-16 19:28 | NUR ---
Potassium/Blood sugars Pt's K+ 2.8 this am, K+ rider pending administration and new PO order placed in eMAR, Pt reports IV site burning from previous IV potassium doses, spoke with MD and orders changed to a total of 60mEq PO which Pt tolerated well. Pt's IV site flushed which Pt reported as easing the pain and Pt denied further pain in the site for the remainder of the shift. MD verbalized that he had spoken with pharmacy and RN instructed to send Pt's home U-500 insulin sliding scale down to pharmacy, copy of the sliding scale provided by the Pt faxed to pharmacy. Pt's blood sugar 432 this afternoon, spoke with MD again who verbalized that pharmacy had verified that 40 units of NPH BID + our sliding scale insulin lispro would be equivalent. Pt given 12units of sliding scale insulin at this time, rechecked prior to NPH and BS 380, Pt's pre-dinner BS 332 and Pt again dosed with insulin per sliding scale, oncoming NOC RN made aware.
[2016-06-16] MEDS: Tiotropium 18mcg/Cap 5 Capsule Inhaler Kit INHALATION SCH (20:57)
[2016-06-16] MEDS: DULoxetine 30 mg DR Capsule PO SCH (20:58)
[2016-06-16] MEDS: Codeine-guaiFENesin 10 mL Syrup PO PRN (23:30)
[2016-06-16] MEDS: Benzocaine-Menthol Lozenge 2/Pkg PO PRN (23:30)
[2016-06-17] VITALS (11 sets, daily range): BP systolic 105–151; BP diastolic 60–94; PULSE 70–99; RESP 18–22; O2SAT 93–98
[2016-06-17] MEDS: Albuterol-Ipratropium 3 mL Inhalation Solution NEB SCH ×4 (00:10→22:20)
[2016-06-17] MEDS: Heparin 5,000 Unit/mL Inj SUBQ SCH ×3 (01:21→16:57)
[2016-06-17 04:21] LABS: BASOPHILS % (AUTO) 0.3 % (0-3); EOSINOPHILS % (AUTO) 0.7 % (0-5); MONOCYTES % (AUTO) 9.1 % (4-12); Mean Corpuscular Hemoglobin 30.6 pg (27.0-35.0); Mean Corpuscular Volume 93.6 fL (81-100); Platelet Count 249 bil/L (150-400)
[2016-06-17 04:42] LABS: Magnesium 2.3 mg/dL (1.6-2.6)
--- NOTE | 2016-06-17 05:04 | NUR ---
Potassium/Respiratory Infusion of NS with 20K continues; patient reporting some discomfort in left arm with infusion again. Infusion switched to right AC IV site with no further discomfort. Potassium level up to 3.4 on morning labs. Patient experiencing frequent barking cough overnight; difficult to cough anything up but occasionally successful at bringing up a small amount of thick brownish sputum. PRN guaifenesin-ccodeine given with some improvement in cough. Continue to monitor.
--- NOTE | 2016-06-17 08:29 | DRSVH ---
PROCEDURE: US BILATERAL DUPLEX DOPPLER IMAGING OF THE CAROTIDS ([id number]) INDICATIONS: 55 year-old female with recent stroke. TECHNIQUE: Color and pulse Doppler interrogation was performed of both carotid systems, with image documentation and velocity measurements. COMPARISON: None. FINDINGS: Image quality is suboptimal due to patient body habitus. Superior portions of both interna l carotid arteries are not well seen, as well as both vertebral arteries. Right side: Brachial blood pressure: Not acquired due to intravenous catheter. Common carotid artery peak systolic velocity: 111 cm/sec. Internal carotid artery peak systolic velocity: 85 cm/sec. Internal carotid artery end diastolic velocity: 15 cm/sec. External carotid artery peak systolic velocity: 80 cm/sec. ICA/CCA peak systolic ratio: 0.76. Delvalle scale imaging description: No atherosclerotic plaque. Percent internal carotid artery stenosis: 0%. Vertebral artery: Unable to be visualized. Left side: Brachial blood pressure: 111/60 mm Hg. Common carotid artery peak systolic velocity: 59 cm/sec. Internal carotid artery peak systolic velocity: 74 cm/sec. Internal carotid artery end diastolic velocity: 16 cm/sec. External carotid artery peak systolic velocity: 57 cm/sec. ICA/CCA peak systolic ratio: 1.25. Delvalle scale imaging description: No atherosclerotic plaque. Percent internal carotid artery stenosis: 0%. Vertebral artery: Unable to be visualized. IMPRESSION: No hemodynamically significant lesions of the visualized extracranial internal carotid ar teries. Dictated by: Bobo Jenkins M.D. on 06/17/2016 at 8:23 Approved by: Bobo Jenkins M.D. on 06/17/2016 at 8:27
[2016-06-17] MEDS: Bacitracin Zinc 15 Gm Ointment TOPICAL SCH ×2 (08:30→22:10)
[2016-06-17] MEDS: Fluticasone-Salmererol 250-50 Inhaler INHALATION SCH ×2 (08:30→22:06)
--- NOTE | 2016-06-17 08:32 | PROG NOTE ---
[address] [address] PROGRESS NOTE PATIENT: JAILENE LOBATO : 1960 MR#: [id number] ADMIT: 06/14/2016 JOB ID: [id number] NEUROLOGY PROGRESS NOTE: DATE: 06/16/2016 SUBJECTIVE: The patient appears improved overnight. She appears more like awake and alert today. Speech is less dysarthric. She also feels less anxious. Her is at the bedside, as well as a family friend who is a physician, and they both note improvement in her condition. I also spoke with her nurse, who also noted improvement in her condition. OBJECTIVE: Vital signs: Temperature 36.5, pulse of 84, respiratory rate of 16, blood pressure 90/42, pulse oximetry 94% on 3 L nasal cannula oxygen. General: She is a well-developed, well-nourished woman, in no acute distress. Head: Normocephalic, atraumatic. Neck: Supple. No carotid bruits were auscultated. Negative Kernig. Negative Brudzinski. Chest: Trace wheezes. Heart: Regular rate and rhythm. Abdomen: Soft, nondistended, nontender. Extremities: No cyanosis, clubbing, or edema. NEUROLOGIC EXAMINATION: Mental status: She is awake, alert, oriented x3. Speech is very mildly dysarthric. No aphasia. She does appear euthymic today. Cranial nerves: Pupils equal, round, reactive to light. Extraocular movements were smooth and conjugate with no evidence of nystagmus. There was a mild degree of ptosis of the left eye, 25%. I spoke with the patient's and family friend, and they note that this has been present prior to the onset of the left-sided weakness. There continues to be ecchymoses bilaterally along the borders of the nares. Facial sensation was diminished to light touch and temperature over the left side of her face. There was a mild degree of flattening of the left nasolabial fold. Tongue was midline. Sternocleidomastoid and trapezii were 5/5 bilaterally. Motor: There is dense left hemiparesis of the left upper and left lower extremities. There are irregular movements of the distal left lower extremity. She does have a history of restless legs syndrome. Sensation: Was diminished to light touch and temperature in the left upper and left lower extremities. Deep tendon reflexes: Were diminished throughout; however, symmetrical. Plantars were silent bilaterally. Coordination: [id number] was intact on the right. However, could not perform on the left due to motor weakness. Gait: Deferred. NIHSS 9 mRS 4 IMPRESSION AND RECOMMENDATIONS: Suspect a cerebrovascular accident. My suspicion is that at this point, David's paralysis is far less likely, as it should have resolved by now. I have reviewed in detail brain computed tomography scans. However, the subtle hypodensities appreciated in the right occipital lobe and cerebellum, I suspect, are artifactual, as they do not clearly reflect the patient's neurologic symptoms, and I do strongly recommend obtaining a magnetic resonance imaging study of her brain and a magnetic resonance angiogram, if possible with conscious sedation. Her renal function revealed a BUN of 28 and creatinine of 1.39. As she has a CONTRAST allergy, I do recommend obtaining a magnetic resonance angiogram in addition to magnetic resonance imaging study of her brain, as I do suspect that this is secondary to a cerebrovascular accident, likely a lacunar stroke. Her risk factors include principally diabetes and hyperlipidemia. Continue stroke protocol. Continue physical therapy/speech therapy/occupational therapy. We will continue to follow. Please feel free to contact me with any questions or concerns. RUBEN
[2016-06-17] MEDS: Pantoprazole 20 mg ER24 Tablet PO SCH (08:35)
[2016-06-17] MEDS: lamoTRIgine 100 mg Tablet PO SCH ×2 (08:36→22:09)
[2016-06-17] MEDS: predniSONE 20 mg Tablet PO SCH (08:37)
[2016-06-17] MEDS: Insulin Human NPH 100 Unit/mL 3 mL Inj SUBQ SCH ×2 (08:53→17:12)
[2016-06-17] MEDS: Insulin LISPRO 300 Unit/3 mL Inj SUBQ SCH ×4 (08:56→22:28)
[2016-06-17] MEDS: cefTRIAXone Inj 1,000 MG in Dextrose 5% Minibag Plus 50 ML IV SCH (08:58)
[2016-06-17] MEDS: Amphetamines (Mixed) 10 mg Tablet PO SCH ×2 (09:03→16:53)
[2016-06-17] MEDS: VYVANSE 70 MG PO SCH (09:03)
[2016-06-17] MEDS: Benzocaine-Menthol Lozenge 2/Pkg PO PRN ×2 (11:55→22:12)
[2016-06-17] MEDS: oxyCODONE-Acetamin 5-325 mg Tablet PO PRN ×2 (11:57→22:12)
--- NOTE | 2016-06-17 12:21 | DRSVH ---
PROCEDURE: CT BRAIN WITHOUT CONTRAST ([id number]) INDICATIONS: Stroke TECHNIQUE: Noncontrast 4.5 mm thick angled axial sections acquired from the foramen magnum to the vertex, with c oronal reformats. COMPARISON: [facility], CT, BRAIN ([facility]), 06/14/2016, 16:16. FINDINGS: Image quality: Good, minimal patient movement. CSF spaces: Basal cisterns are patent. No extra-axial fluid collections. Ventricles are normal in size and shape. Brain: No midline shift. No intracranial masses or hemorrhage. Delvalle-white matter interface is norm al. Skull and face: Calvarium and visualized facial bones are intact, without suspicious lesions. Sinuses: Visualized sinuses and mastoids are clear. IMPRESSION: No acute intracranial abnormality is appreciated compared to the study of 06/15/16 at 2236 hrs. Dictated by: Christian France M.D. on 06/17/2016 at 12:15 Approved by: Christian France M.D. on 06/17/2016 at 12:20
--- NOTE | 2016-06-17 13:04 | NUR ---
Wound Care [facility] Patient seen for wound care evaluation. Patient admitted to hospital following probable CVA with new onset of LUE and LLE hemiplegia. Patient with fall on day prior to admission resulting in abrasions to bilateral elbows and knees. Patient also with long-standing, but improving per patient report, diabetic ulcer to left first metatarsal head. Patient was being seen at outpatient wound clinic but due to improvement in wound, now seen by Dr. Cervantes in office. All documented wounds present on admission. Left plantar wound measures 0.3cm L x 0.2cm W x <0.1cm D with pale red wound bed and calloused skin periwound. Noted with minimal serous drainage. Cleaned with NS. Covered with saline-moist 2x2 and dry 2x2. Secured with hypafix tape. Abrasions assessed as follows: Left knee measures 0.7cm L x 0.6cm W x <0.1cm D partial thickness wound with 75% yellow fibrous wound bed and 25% red. Minimal serous drainage noted. Left elbow measures 2.7cm L x 1.6cm W x 0.1cm D full thickness wound with 75% yellow slough and 25% red tissue. Wound with min serous drainage. Right knee with two open areas. Distal abrasion measures 2.5cmL x 2.3cm W x 0.1cm D, full thickness wound with 100% slough and minimal serous drainage. Proximal abrasion measures 1.2cm L x 3cm W x 0.1cm D with 100% slough and minimal serous drainage. Right elbow abrasion measures 2cm L x 0.6cm W x 0.1cm D with 100% slough and minimal serous drainage. All abrasions cleaned with NS. Right knee and elbow wounds covered with Vaseline gauze. All wounds covered with Mepilex foam and secured with Hypafix tape. Nursing to change dressings q48 hours and PRN soiling. Wound care to follow as needed.
[2016-06-17] MEDS: 0.9% NaCl + KCl 20 mEq/L 1,000 ML IV SCH (13:12)
--- NOTE | 2016-06-17 13:37 | PCM.PNMED ---
Subjective Date of Service Jun 17, 2016 Subjective Patient is at her baseline. She continues to have left sided weakness, however, she was able to wiggle her first three left fingers, and she could move her left lower extremity from side to side. She is alert and oriented x3. She is very thankful for good care she receives here. MRI/MRA under conscious sedation tomorrow at 4 pm. Exam Vital Signs Vital Sign - Last Date Time Temp Pulse Resp B/P Pulse Ox O2 Delivery O2 Flow Rate FiO2 06/17/16 12:19 37.3 92 20 132/75 93 Nasal Cannula 2.00 Intake and Output 06/16/16 06/16/16 06/17/16 Cumulative From/Thru 15:00 23:00 07:00 06/14/16 16:37 - 06/17/16 06:38 Intake Total 2783 ml 1447 ml 6846 ml Output Total 1000 ml 550 ml 1751 ml Balance 1783 ml 897 ml 5095 ml Intake Oral 1850 ml 600 ml 3644 ml IV Total 933 ml 847 ml 3202 ml Output Urine Total 1000 ml 550 ml 1751 ml # Voids 5 # Bowel Movements 0 1 1 Exam General: Obese, pleasant female in mild distress, alert and oriented x 3 HEENT: Bruised nose, raccoon eyes, anicteric sclera, extraocular movement intact , left eye ptosis, hearing intact Neck: Supple without adenopathy Lungs: Clear to auscultation bilaterally, no accessory muscle Heart: Regular rate and rhythm, no murmurs appreciated, equal radial pulses Abdomen: Obese, soft, nontender, normoactive bowel sounds, no hepatosplenomegaly Extremities: No edema, clubbing, cyanosis, restless legs, right side Neuro: left nasolabial fold less prominent, no sensation left face, left upper extremity, diffusely intermittent tremors of right upper extremity, strength grossly intact of right upper and lower limbs 5/5, strength left upper extremity 1-/5, lower extremity 2+/5, mild intermittent apraxia Lab and Diagnostics Result Diagram: 06/17/16 0355 06/17/16 0355 X-Rays, CTs and MRIs CT BRAIN ([facility]) IMPRESSION: 1. No acute intracranial findings. Dictated and approved by: Juany Torres M.D. on 06/14/2016 at 16:21 CT FACE WITHOUT CONTRAST IMPRESSION: 1. Minimally displaced nasal bone fractures. 2. Questionable minimally displaced anterior wall right maxillary sinus fracture versus vascular groove. Dictated and approved by: Juany Torres M.D. on 06/15/2016 at 9:03 CT BRAIN WITHOUT CONTRAST IMPRESSION: 1. New deep white matter hypodensity within the right cerebellar hemisphere when compared with the prior study. Differential considerations include subacute infarct and slice registration artifact. MRI would be helpful to further characterize this finding if clinically indicated. Short interval repeat CT may also be helpful to exclude artifact from the differential. These findings were discussed with Dr. Chavez at 6:15 PM on 06/13/16. Dictated and approved: Juany Torres M.D. on 06/15/2016 at 18:15 US BILATERAL DUPLEX DOPPLER IMAGING OF THE CAROTIDS IMPRESSION: No hemodynamically significant lesions of the visualized extracranial internal carotid arteries. Dictated and approved by: Bobo Jenkins M.D. on 06/17/2016 at 8:23 CT BRAIN WITHOUT CONTRAST IMPRESSION: No acute intracranial abnormality is appreciated compared to the study of 06/15/16 at 2236 hrs. Dictated and approved by: Christian France M.D. on 06/17/2016 at 12:15 12-lead ECG Sinus rhythm, heart rate 92, poor R wave progression Assessment & Plan Yolis Ornelas is a 55-year-old female with diabetes mellitus with diabetic neuropathy, insulin dependent, bilateral foot drop, binasal hemianopsia, COPD, oxygen dependent, 3 liters at home, CHF, bipolar disorder, restless leg syndrome and upper extremities tremors, osteoarthritis and sleep apnea admitted for cerebrovascular accident, hypokalemia, acute kidney injury, and facial trauma due to recent fall. 1. Acute cerebrovascular accident, present on admission. Active - Patient presented with left sided weakness, facial sensation loss, mild intermittent apraxia and aphasia.initial NIHSS 12 - CT brain #[address] #2 brain revealed new deep white matter hypodensity within the right cerebellar hemisphere when compared with the prior study.CT #3 done per neurologist rec shows Subtle hypodensity in the right occipital lobe and cerebellum suspicious for acute infarcts.all in the first 24 done - MRI brain stroke protocol under conscious sedation (patient with extreme claustrophobia) was attempted, however, patient did not fit in and desaturated. Patient states she had to be intubated for MRI in 2011. Neurologist recommends getting MRI with intubation at some point but not now. - Allow permissive hypertension - Continue aspirin, dose increased to 325 mg daily - Considered switching and/or adding plavix, neurology does not think this is aspirin failure. He thinks recent change to modifiable risk/uncontrolled blood sugar due to steroid for COPD may have Contributed. - Atorvastatin, 40 mg daily - Physical therapy, occupational therapy, speech and swallow evaluation - Neurology consulted, Dr. Nguyen her outpatient neurologist. saw her on current admission. We appreciated his expertise. - ECHO within normal limits - Carotid duplex within normal limits - MRI/MRA under conscious sedation tomorrow at 4 pm has been scheduled per Dr. Chavez's recommendation, however MRI has been attempted last week and patient did not fit into the MRI machine so we will not most likely be able to proceed with this plan. 2. Hypokalemia, chronic, present on admission. Active - Hold home diuretics (lasix, 120 mg and HCTZ, 50 mg daily by mouth) - Potassium chloride in NS, 40 meq intravenously and potassium chloride 40 meq orally . Plan to discontinue IV fluids and may resume diuretics tomorrow - Monitor labs 3. Acute kidney injury, present on admission. Active - Normal kidney function upon recent discharge for COPD exacerbation just a few days ago - Continue intravenous hydration - Monitor labs 4. Leukocytosis, present on admission. Active - Most likely due to prednisone taken for COPD exacerbation - Trending down, UA pyuria, ceftriaxone initiated. Awaiting culture 5. Facial trauma secondary to ground level fall, present on admission. Active - Most likely due to diabetic neuropathy, bilateral foot drop, may be possible seizure (patient denies, CPK negative), orthostatic hypotension, hypokalemia - CT face revealed minimally displaced nasal bone fractures with questionable minimally displaced anterior wall right maxillary sinus fracture versus vascular groove - consulted ENT Dr Peterson and he said he will see her - Tylenol for pain 6. Diabetes mellitus, chronic, present on admission. Active - Insulin dependent x 10 years - Poorly controlled, Hb A1c 13.5 - Nutritional and high dose correctional insulin -She uses U500 Home insulin regimen which is nonformulary here. She was given NPH 40 units twice a day with sliding scale on prior admission. will switch to NPH and follow glucose control closely. 7.Probable asymptomatic urinary tract infection, present on admission. Active - Started ceftriaxone, 1000 mg intravenously daily. Urine culture pending 8. Transaminitis, chronic, present on admission. Active - Continue to monitor 9. Seizure disorder -there was initial concern for breakthrough seizure causing fall and nasal fracture 1 day prior to stroke and second seizure causing Todds paralysis but this seems exceedingly unlikely given paralysis persisted -AED level pending Chronic issues known prior to admission, present on admission #Upper extremity DVT secondary to PICC line, treated with warfarin # Restless leg syndrome / upper extremities tremors - her outpatient neurologist ordered MRI under anesthesiology and scheduled for next , Bilateral drop foot, binasal hemianopsia #Diabetic neuropathy/CKD #Asthma / sleep apnea / COPD / home O2 3LNC #CHF / DLP / HTN # GERD #Bipolar disorder migraines Anxiety/depression/ADHD --prn CPAP if comfortable for face Disposition: inpatient status Pain Evaluation: Adequate Pain Control GI Prophylaxis: Proton Pump Inhibitor VTE Prophylaxis: Sub-Q Heparin (Unfractionated) Resuscitation Status: CPR: Attempt Resuscitation Attending Statement The patient was seen and examined together with Dr. Osborn on 06/17/2016 and I agree with the history, exam and plan as outlined in the note above. . copies to: Kevin Mitchell MD, Oksana S DO Jun 17, 2016 13:37 Magdi Contreras MD Jun 17, 2016 17:26
[2016-06-17] MEDS ORDERED: Glucose 40% Oral Gel 15 Gm Tube PO PRN (18:50)
--- NOTE | 2016-06-17 20:14 | NUR ---
Blood sugars Patient's blood sugars this shift were 239, 350, and 398. notified. 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 Pt asymptomatic throughout stating "Your NPH does not work for me." Pt received NPH 40mg in the morning and in the afternoon. She received lispro sliding scale at each meal.
[2016-06-17] MEDS: Tiotropium 18mcg/Cap 5 Capsule Inhaler Kit INHALATION SCH (22:08)
[2016-06-17] MEDS: DULoxetine 30 mg DR Capsule PO SCH (22:10)
[2016-06-17] MEDS: Codeine-guaiFENesin 10 mL Syrup PO PRN (22:13)
[2016-06-18] VITALS (7 sets, daily range): BP systolic 118–159; BP diastolic 71–95; PULSE 71–90; RESP 18–22; O2SAT 93–98
[2016-06-18] MEDS: 0.9% NaCl + KCl 20 mEq/L 1,000 ML IV SCH ×2 (00:43→13:16)
[2016-06-18] MEDS: Heparin 5,000 Unit/mL Inj SUBQ SCH ×3 (00:45→17:19)
[2016-06-18 03:57] LABS: BASOPHILS % (AUTO) 0.2 % (0-3); EOSINOPHILS % (AUTO) 0.6 % (0-5); MONOCYTES % (AUTO) 6.6 % (4-12); Mean Corpuscular Hemoglobin 30.6 pg (27.0-35.0); Mean Corpuscular Volume 94.7 fL (81-100); NEUTROPHILS % (AUTO) 59.3 % (40-74); Platelet Count 280 bil/L (150-400)
[2016-06-18] MEDS: Benzocaine-Menthol Lozenge 2/Pkg PO PRN ×2 (04:59→13:17)
[2016-06-18] MEDS: Codeine-guaiFENesin 10 mL Syrup PO PRN (04:59)
[2016-06-18] MEDS: oxyCODONE-Acetamin 5-325 mg Tablet PO PRN ×2 (05:01→15:14)
--- NOTE | 2016-06-18 05:36 | NUR ---
Neuro Pt ability to move left arm has increased, she was able to lift left arm slightly and push down onto bed to move self. Pt still states she is unaware of touch to the left arm and has some tingling sensations in her 3 outer fingers. Pt left leg moving involuntary r/t restless leg syndrome. Pt is able to move left leg slightly on own and was able to help push with her legs to boost in bed. VSS and Tele SR 70's
[2016-06-18] MEDS: Albuterol-Ipratropium 3 mL Inhalation Solution NEB SCH ×2 (09:05→14:30)
[2016-06-18] MEDS: cefTRIAXone Inj 1,000 MG in Dextrose 5% Minibag Plus 50 ML IV SCH (09:12)
[2016-06-18] MEDS: Insulin LISPRO 300 Unit/3 mL Inj SUBQ SCH ×3 (10:15→18:38)
[2016-06-18] MEDS: Bacitracin Zinc 15 Gm Ointment TOPICAL SCH (10:17)
[2016-06-18] MEDS: Fluticasone-Salmererol 250-50 Inhaler INHALATION SCH (10:17)
[2016-06-18] MEDS: Insulin Human NPH 100 Unit/mL 3 mL Inj SUBQ SCH ×3 (10:20→18:34)
[2016-06-18] MEDS: predniSONE 20 mg Tablet PO SCH (10:23)
[2016-06-18] MEDS: Pantoprazole 20 mg ER24 Tablet PO SCH (10:23)
[2016-06-18] MEDS: Amphetamines (Mixed) 10 mg Tablet PO SCH ×2 (10:23→15:14)
[2016-06-18] MEDS: lamoTRIgine 100 mg Tablet PO SCH (10:23)
[2016-06-18] MEDS: VYVANSE 70 MG PO SCH (10:24)
--- NOTE | 2016-06-18 11:09 | NUR ---
Social Work- Continued D/C Planning Data: EMR reviewed. Pt is on day 4 of hospitalization for CVA. PT recommending SNF at this time. Pt is not medically stable, anticipate multiple more days of hospitalization. Pt requires MRI but will need sedation/intubation during procedure. Pt may require transfer to obtain this MRI. At this time, Pt to discharge to [facility] with MD Mitchell to follow pending insurance authorization. Paperwork in chart. PASRR in folder. SW will continue to follow. Assessment: Pt who would likely benefit from SNF. Plan: Pt may need transfer to obtain necessary MRI. Pt to discharge to [facility] with MD Mitchell to follow pending insurance authorization. Paperwork in chart. PASRR in folder. SW will continue to follow. SVETLANA Freeman
--- NOTE | 2016-06-18 11:30 | NUR ---
Morning medications/NPO: Morning PO medications held r/t possible transfer for MRI requiring intubation.
--- NOTE | 2016-06-18 13:41 | PCM.PNMED ---
Subjective Date of Service Jun 18, 2016 Subjective Overnight patient continuing to improve. She is starting to have increased movement in the left upper extremity. No complaints today. Exam Vital Signs Vital Sign - Last Date Time Temp Pulse Resp B/P Pulse Ox O2 Delivery O2 Flow Rate FiO2 06/18/16 12:09 36.5 76 22 132/82 97 Nasal Cannula 2.00 Intake and Output 06/17/16 06/17/16 06/18/16 Cumulative From/Thru 15:00 23:00 07:00 06/14/16 16:37 - 06/18/16 06:44 Intake Total 2738 ml 1079 ml 50435 ml Output Total 2000 ml 700 ml 4451 ml Balance 738 ml 379 ml 6212 ml Intake Oral 3644 ml IV Total 1038 ml 779 ml 5019 ml TPN/PPN 1700 ml 300 ml 2000 ml Output Urine Total 2000 ml 700 ml 4451 ml # Voids 5 # Bowel Movements 0 0 1 Exam General: Obese, pleasant female lying in no distress, alert and oriented x 3 HEENT: Bruised nose, raccoon eyes, anicteric sclera, extraocular movement intact , left eye ptosis, hearing intact Neck: Supple without adenopathy Lungs: Clear to auscultation bilaterally, no accessory muscle use Heart: Regular rate and rhythm, no murmurs appreciated, equal radial pulses Abdomen: Obese, soft, nontender, normoactive bowel sounds, no hepatosplenomegaly Extremities: No edema, clubbing, cyanosis. Has constant tremor of restless legs , equal bilaterally. Neuro: Left nasolabial fold less prominent, no sensation left face, left upper extremity, diffusely intermittent tremors of right upper extremity, strength grossly intact of right upper and lower limbs 5/5, strength left upper extremity 1-/5, lower extremity 2+/5, mild intermittent apraxia IVs and Medications Medications Reviewed: Medications were reviewed in detail Lab and Diagnostics Result Diagram: 06/18/16 03306/18/16 033 X-Rays, CTs and MRIs CT BRAIN (TPA) IMPRESSION: 1. No acute intracranial findings. Dictated and approved by: Juany Torres M.D. on 06/14/2016 at 16:21 CT FACE WITHOUT CONTRAST IMPRESSION: 1. Minimally displaced nasal bone fractures. 2. Questionable minimally displaced anterior wall right maxillary sinus fracture versus vascular groove. Dictated and approved by: Juany Torres M.D. on 06/15/2016 at 9:03 CT BRAIN WITHOUT CONTRAST IMPRESSION: 1. New deep white matter hypodensity within the right cerebellar hemisphere when compared with the prior study. Differential considerations include subacute infarct and slice registration artifact. MRI would be helpful to further characterize this finding if clinically indicated. Short interval repeat CT may also be helpful to exclude artifact from the differential. These findings were discussed with Dr. Chavez at 6:15 PM on 06/13/16. Dictated and approved: Juany Torres M.D. on 06/15/2016 at 18:15 BILATERAL DUPLEX DOPPLER IMAGING OF THE CAROTIDS IMPRESSION: No hemodynamically significant lesions of the visualized extracranial internal carotid arteries. Dictated and approved by: Bobo Jenkins M.D. on 06/17/2016 at 8:23 CT BRAIN WITHOUT CONTRAST IMPRESSION: No acute intracranial abnormality is appreciated compared to the study of 06/15/16 at 2236 hrs. Dictated and approved by: Christian France M.D. on 06/17/2016 at 12:15 12-lead ECG Sinus rhythm, heart rate 92, poor R wave progression Assessment & Plan Yolis Ornelas is a 55-year-old female with diabetes mellitus with diabetic neuropathy, insulin dependent, bilateral foot drop, binasal hemianopsia, COPD, oxygen dependent, 3 liters at home, CHF, bipolar disorder, restless leg syndrome and upper extremities tremors, osteoarthritis and sleep apnea admitted for cerebrovascular accident, hypokalemia, acute kidney injury, and facial trauma due to recent fall. 1. Acute cerebrovascular accident, present on admission. Active - Patient presented with left sided weakness, facial sensation loss, mild intermittent apraxia and aphasia.initial NIHSS 12 - CT brain #[address] #2 brain revealed new deep white matter hypodensity within the right cerebellar hemisphere when compared with the prior study.CT #3 done per neurologist rec shows Subtle hypodensity in the right occipital lobe and cerebellum suspicious for acute infarcts.all in the first 24 done - MRI brain stroke protocol under conscious sedation (patient with extreme claustrophobia) was attempted, however, patient did not fit and desaturated. Patient states she had to be intubated for MRI in 2011. Neurologist recommends getting MRI with intubation and pt will likely require transfer for this study. - Allow permissive hypertension - Continue aspirin, dose increased to 325 mg daily - Considered switching and/or adding plavix, neurology does not think this is aspirin failure. He thinks recent change to modifiable risk/uncontrolled blood sugar due to steroid for COPD may have Contributed. - Atorvastatin, 40 mg daily - Continue physical therapy, occupational therapy, speech and swallow evaluations. - Neurology consulted, Dr. Nguyen is her outpatient neurologist. has seen her on current admission. We appreciated his expertise. - ECHO within normal limits and unchanged since previous study. - Carotid duplex within normal limits - MRI/MRA under conscious sedation has been postponed until transfer can be obtained, due to the patient being unable to fit the MRI machine at this hospital. Have discussed her case with neurology at [facility], they have accepted her as a patient and we are currently awaiting bed placement there. 2. Hypokalemia, chronic, present on admission. Improving - Potassium 4.4 today. - Hold home diuretics for now (lasix, 120 mg and HCTZ, 50 mg daily by mouth) - Potassium chloride in NS, 40 meq intravenously and potassium chloride 40 meq orally . Plan to discontinue IV fluids and may resume diuretics tomorrow - Continue to monitor labs. 3. Acute kidney injury, present on admission. Improving - BUN 13 and Creatinine 0.99 today and continue to trend down since admission. - Normal kidney function upon recent discharge for COPD exacerbation just a few days ago - Continue intravenous hydration - Continue to monitor labs. 4. Leukocytosis, present on admission. Improving - Most likely due to recent prednisone taken for COPD exacerbation - Trending down, UA pyuria, ceftriaxone initiated. Urine culture benign with growth of mixed normal urogenital doyle. 5. Facial trauma secondary to ground level fall, present on admission. Active - Most likely due to diabetic neuropathy, bilateral foot drop, may be possible seizure (patient denies, CPK negative), orthostatic hypotension, hypokalemia - CT face revealed minimally displaced nasal bone fractures with questionable minimally displaced anterior wall right maxillary sinus fracture versus vascular groove - consulted ENT Dr Peterson and he said he will see her - Tylenol for pain 6. Diabetes mellitus, chronic, present on admission. Active - Insulin dependent x 10 years - Poorly controlled, Hb A1c 13.5 - Nutritional and high dose correctional insulin -She uses U500 Home insulin regimen which is nonformulary here. She was given NPH 40 units twice a day with sliding scale on prior admission. will switch to NPH and follow glucose control closely. Continue nutritional Lispro on high dose correctional algorithm. 7.Probable asymptomatic urinary tract infection, present on admission. Resolved - Discontinue ceftriaxone as urine culture came back positive for mixed normal urogenital doyle. 8. Transaminitis, chronic, present on admission. Active - ALT and AST trending down. - Continue to monitor. 9. Seizure disorder -there was initial concern for breakthrough seizure causing fall and nasal fracture 1 day prior to stroke and second seizure causing Todds paralysis but this seems exceedingly unlikely given paralysis persisted -AED level pending Chronic issues known prior to admission, present on admission #Upper extremity DVT secondary to PICC line, treated with warfarin # Restless leg syndrome / upper extremities tremors - her outpatient neurologist ordered MRI under anesthesiology and scheduled for next , Bilateral drop foot, binasal hemianopsia #Diabetic neuropathy/CKD #Asthma / sleep apnea / COPD / home O2 3LNC #CHF / DLP / HTN # GERD #Bipolar disorder migraines Anxiety/depression/ADHD --prn CPAP if comfortable for face Disposition: inpatient status Pain Evaluation: Adequate Pain Control GI Prophylaxis: Proton Pump Inhibitor VTE Prophylaxis: Sub-Q Heparin (Unfractionated) Resuscitation Status: CPR: Attempt Resuscitation Attending Statement The patient was seen and examined together with Dr. Osborn on 06/18/2016 and I agree with the history, exam and plan as outlined in the note above. . Brandy Osborn DO Jun 18, 2016 13:41 Magdi Contreras MD Jun 19, 2016 07:33
[2016-06-18 14:09] LABS: Lamotrigine (Lamictal) 9.6 ug/mL (2.0-20.0)
--- NOTE | 2016-06-18 14:57 | PCM.PNMED ---
Subjective Date of Service Jun 18, 2016 Subjective Neurology Progress Note: Attending Dr. Scott Ornelas is a 55-year-old female with a past medical history significant for seizure disorder, binasal hemianopsia, restless leg syndrome, upper extremity tremors, diabetes mellitus type II, insulin using with complication of diabetic neuropathy and bilateral foot drop, oxygen dependent COPD on 3L at home, CHF, bipolar disorder, and sleep apnea admitted for left sided neurological deficits and probable CVA. Overnight: There were no acute events. The patient is resting in bed comfortably and in no acute distress. She endorses diplopia, restless legs, and left sided muscle weakness UE>LE that is improving. She denies headache, tinnitus, shortness of breath, chest pain, abdominal pain, nausea, vomiting, fever, chills, dysuria, diarrhea or constipation. She is voiding and eliminating without difficulty. She is up minimally to bedside commode with assistance. . Exam Vital Signs Vital Sign - Last Date Time Temp Pulse Resp B/P Pulse Ox O2 Delivery O2 Flow Rate FiO2 06/18/16 12:09 36.5 76 22 132/82 97 Nasal Cannula 2.00 Intake and Output 06/17/16 06/17/16 06/18/16 Cumulative From/Thru 15:00 23:00 07:00 06/14/16 16:37 - 06/18/16 06:44 Intake Total 2738 ml 1079 ml 96102 ml Output Total 2000 ml 700 ml 4451 ml Balance 738 ml 379 ml 6212 ml Intake Oral 3644 ml IV Total 1038 ml 779 ml 5019 ml TPN/PPN 1700 ml 300 ml 2000 ml Output Urine Total 2000 ml 700 ml 4451 ml # Voids 5 # Bowel Movements 0 0 1 Exam General: Elderly female lying in bed and in no acute distress. HEENT: Normocephalic, atraumatic. External ears without defect. Pupils equal, round, and reactive to light. Suborbital ecchymosis. Anicteric sclerae, moist conjunctivae, and no lid lag. Oropharynx free of erythema and cobble stoning with moist mucosa. Neck: Supple with full range of motion. No lymphadenopathy or thyromegaly. Cardiovascular: Heart sounds distant. Regular rate and rhythm without murmurs, rubs, or gallops. Pulmonary: Clear to auscultation bilaterally with no crackles, wheezes, or rhonchi. Normal respiratory effort with no use of accessory muscles. Abdomen: Soft, nontender, nondistended, bowel tones present. No hepatosplenomegaly or masses appreciated. Extremities: No clubbing, cyanosis, or edema. Legs restless R>L. Skin: Normal temperature, turgor, and texture; no rash, ulcers, or subcutaneous nodules appreciated. Neurological: Alert and oriented to person, place, and time. Speech is no longer dysarthric. No aphasia. Pupils equal, round, reactive to light. EOMI. No nystagmus. Chronic ptosis of left eye. Suborbital ecchymosis. Tongue midline. Left-sided hemiparesis improving. MS of left lower extremity +4/5 and left upper extremity +3/5. MS of right upper and lower extremities +5/5. Diminished sensation to light touch and temperature in the left upper and left lower extremities. DTRs diminished but symmetrical. Babinski negative. Finger -to-nose intact on the right but unable to perform on the left due to motor weakness. [id number] intact bilaterally. Psychiatric: Normal mood and affect. . IVs and Medications Medications Reviewed: Medications were reviewed in detail Lab and Diagnostics Item Value Date Time Calcium Level 9.4 mg/dL 06/18/16 0335 Total Bilirubin 0.2 mg/dL 06/18/16 0335 Aspartate Amino Transf (AST/SGOT) 33 U/L 06/18/16 0335 Alanine Aminotransferase (ALT/SGPT) 52 U/L H 06/18/16 0335 Alkaline Phosphatase 66 U/L 06/18/16 0335 Total Protein 6.1 g/dL L 06/18/16 0335 Albumin 3.9 g/dL 06/18/16 0335 Result Diagram: 06/18/16 0335 06/18/16 033 Microbiology Urine culture grew mixed urogenital doyle. . X-Rays, CTs and MRIs CT BRAIN (TPA) IMPRESSION: 1. No acute intracranial findings. Dictated and approved by: Juany Torres M.D. on 06/14/2016 at 16:21 CT FACE WITHOUT CONTRAST IMPRESSION: 1. Minimally displaced nasal bone fractures. 2. Questionable minimally displaced anterior wall right maxillary sinus fracture versus vascular groove. Dictated and approved by: Juany Torres M.D. on 06/15/2016 at 9:03 CT BRAIN WITHOUT CONTRAST IMPRESSION: 1. New deep white matter hypodensity within the right cerebellar hemisphere when compared with the prior study. Differential considerations include subacute infarct and slice registration artifact. MRI would be helpful to further characterize this finding if clinically indicated. Short interval repeat CT may also be helpful to exclude artifact from the differential. These findings were discussed with Dr. Chavez at 6:15 PM on 06/13/16. Dictated and approved: Juany Torres M.D. on 06/15/2016 at 18:15 CT BRAIN WITHOUT CONTRAST IMPRESSION: Subtle hypodensity in the right occipital lobe and cerebellum suspicious for acute infarcts. Recommend clinical correlation. If clinical clinical suspicion for pathology is high, MRI is suggested for further evaluation. Dictated by: Kenneth Stevens M.D. on 06/16/2016 at 8:33 US BILATERAL DUPLEX DOPPLER IMAGING OF THE CAROTIDS IMPRESSION: No hemodynamically significant lesions of the visualized extracranial internal carotid arteries. Dictated and approved by: Bobo Jenkins M.D. on 06/17/2016 at 8:23 CT BRAIN WITHOUT CONTRAST IMPRESSION: No acute intracranial abnormality is appreciated compared to the study of 06/15/16 at 2236 hrs. Dictated and approved by: Christian France M.D. on 06/17/2016 at 12:15 . Additional Diagnostics Echocardiogram Interpretation Summary: This is a limited echocardiogram for CVA. Bubble Study is performed. The left ventricle is grossly normal in size and systolic function is probably normal without obvious focal wall motion abnormalities but poor endocardial definition reduces the sensitivity for the detection of such. Assessment of diastolic parameters indicates normal left ventricular diastolic function and normal filling pressures. There has been no significant change since the previous study. The right ventricle grossly appears normal in size with probable normal systolic function and appears unchanged compared to the previous study. The interatrial septum appears intact with no evidence for an atrial septal defect or interatrial shunt by injection of contrast with and without Valsalva. Reading Physician:03:58 PM . Assessment & Plan Yolis Ornelas is a 55-year-old female with a past medical history significant for seizure disorder, binasal hemianopsia, restless leg syndrome, upper extremity tremors, diabetes mellitus type II, insulin using with complication of diabetic neuropathy and bilateral foot drop, oxygen dependent COPD on 3L at home, CHF, bipolar disorder, and sleep apnea admitted for left sided neurological deficits and probable CVA. Assessment: 1. Probable acute cerebrovascular accident, present on admission. Active. Impression: The patient presented after falling on 06/14/2016 face first into a bathtub subsequently developing raccoon eyes secondary to lightheadedness and her feet giving way. She did not lose consciousness. There were no seizures witnessed but she does have a history of a seizure disorder. She presented to the ER with left sided neurological deficits including left sided hemiparesis, dysarthria, slurred speech, and left-sided facial droop and a cerebrovascular accident was suspected. David's paralysis was initially on the differential, however, it has been greater than 48 hours and her left sided hemiparesis and weakness persists though clinically improved. CT brain with contrast demonstrated subtle hypodensities appreciated in the right occipital lobe and cerebellum that are suspected to be artifactual, as they do not clearly reflect the patient's neurologic symptoms. Based on her risks factors and neurological presentation it is highly suspected that her symptoms are reflective of a CVA, likely lacunar. Her risk factors include principally diabetes and hyperlipidemia. Less likely is a psychogenic component, as there were some inconsistencies on neurologic exam, however, the patient should be completely evaluated for CVA, as well as, intracranial etiologies. Recommendations: 1. Recommend that the patient be transferred to a tertiary care center to have an MRI/MRA brain performed at a facility with an MR capable of accommodating the patient based on her BSA. 2. Continue stroke protocol. Continue physical therapy, speech therapy, and occupational therapy. Thank you for this most interesting consult. We will continue to follow along with you. GI Prophylaxis: Proton Pump Inhibitor VTE Prophylaxis: Sub-Q Heparin (Unfractionated) Resuscitation Status: CPR: Attempt Resuscitation Attending Statement Seen and examined with resident. Agree with above. Jessica Harmon DO Jun 18, 2016 14:07 Moisés Chavez MD July 15, 2016 01:09
[2016-06-18] MEDS: guaiFENesin 20 mg/mL 10 mL Syrup PO PRN (15:15)
--- NOTE | 2016-06-18 16:44 | PCM.DIMED ---
Brandy Osborn DO 06/18/16 1644: Discharge Instructions Date of Service Jun 18, 2016 Dates of Hospitalization Jun 14, 2016 at 18:49 Discharge Diagnosis Discharge Diagnosis 1. Acute cerebrovascular accident, present on admission. Active 2. Hypokalemia, chronic, present on admission. Improved 3. Acute kidney injury, present on admission. Improved 4. Leukocytosis, present on admission. Improving 5. Facial trauma secondary to ground level fall, present on admission. Improving 6. Diabetes mellitus, chronic, poorly controlled, present on admission. Active 7. Probable asymptomatic urinary tract infection, present on admission. Resolved 8. Transaminitis, chronic, present on admission. Improving 9. Seizure disorder, presumed stable Medication Instructions 1. Aspirin, 325 mg, daily 2. Atorvastatin, 40 mg daily Diet Diabetic Activity Limited until seen by PCP Call your provider Fever or Chills, Shortness of breath, Bleeding, Chest pain, Vomitting, Excessive diarrhea, Weakness (unilateral) Patient Instructions Follow-up Provider: Kevin Mitchell MD Follow-up with PCP in: 2 weeks (Please follow up with your PCP after discharge from [facility]) Magdi Contreras MD 06/19/16 0732: Discharge Instructions Attending's Statement The patient was seen and examined together with Dr. Osborn on 06/18/2016 and I agree with the history, exam and plan as outlined in the note above. . Brandy Osborn DO Jun 18, 2016 16:44 Magdi Contreras MD Jun 19, 2016 07:32
[2016-06-18] MEDS ORDERED: LIP40 PO (16:47)
[2016-06-18] MEDS ORDERED: ASPI325T32 PO (16:48)
--- NOTE | 2016-06-18 17:02 | PCM.DC.MED ---
Discharge Summary Date of Service Jun 18, 2016 Dates of Hospitalization Date of Hospital Admission Jun 14, 2016 at 18:49 Date of Discharge: Jun 18, 2016 Providers: Admitting Physician: Bruce Escamilla MD Primary Care Physician: Kevin Mitchell MD Attending Physician: Bruce Escamilla MD Diagnosis at Time of Discharge Diagnosis at Time of Discharge 1. Acute cerebrovascular accident, present on admission. Active 2. Hypokalemia, chronic, present on admission. Improved 3. Acute kidney injury, present on admission. Improved 4. Leukocytosis, present on admission. Improving 5. Facial trauma secondary to ground level fall, present on admission. Improving 6. Diabetes mellitus, chronic, poorly controlled, present on admission. Active 7. Probable asymptomatic urinary tract infection, present on admission. Resolved 8. Transaminitis, chronic, present on admission. Improving 9. Seizure disorder, presumed stable Procedures XRay, CTs & MRIs CT BRAIN (TPA) IMPRESSION: 1. No acute intracranial findings. Dictated and approved by: Juany Torres M.D. on 06/14/2016 at 16:21 CT FACE WITHOUT CONTRAST IMPRESSION: 1. Minimally displaced nasal bone fractures. 2. Questionable minimally displaced anterior wall right maxillary sinus fracture versus vascular groove. Dictated and approved by: Juany Torres M.D. on 06/15/2016 at 9:03 CT BRAIN WITHOUT CONTRAST IMPRESSION: 1. New deep white matter hypodensity within the right cerebellar hemisphere when compared with the prior study. Differential considerations include subacute infarct and slice registration artifact. MRI would be helpful to further characterize this finding if clinically indicated. Short interval repeat CT may also be helpful to exclude artifact from the differential. These findings were discussed with Dr. Chavez at 6:15 PM on 06/13/16. Dictated and approved: Juany Torres M.D. on 06/15/2016 at 18:15 CT BRAIN WITHOUT CONTRAST IMPRESSION: Subtle hypodensity in the right occipital lobe and cerebellum suspicious for acute infarcts. Recommend clinical correlation. If clinical clinical suspicion for pathology is high, MRI is suggested for further evaluation. Dictated by: Kenneth Stevens M.D. on 06/16/2016 at 8:33 US BILATERAL DUPLEX DOPPLER IMAGING OF THE CAROTIDS IMPRESSION: No hemodynamically significant lesions of the visualized extracranial internal carotid arteries. Dictated and approved by: Bobo Jenkins M.D. on 06/17/2016 at 8:23 CT BRAIN WITHOUT CONTRAST IMPRESSION: No acute intracranial abnormality is appreciated compared to the study of 06/15/16 at 2236 hrs. Dictated and approved by: Christian France M.D. on 06/17/2016 at 12:15 . Other Diagnostics Echocardiogram Interpretation Summary: This is a limited echocardiogram for CVA. Bubble Study is performed. The left ventricle is grossly normal in size and systolic function is probably normal without obvious focal wall motion abnormalities but poor endocardial definition reduces the sensitivity for the detection of such. Assessment of diastolic parameters indicates normal left ventricular diastolic function and normal filling pressures. There has been no significant change since the previous study. The right ventricle grossly appears normal in size with probable normal systolic function and appears unchanged compared to the previous study. The interatrial septum appears intact with no evidence for an atrial septal defect or interatrial shunt by injection of contrast with and without Valsalva. Reading Physician:03:58 PM . Brief History Per Admitting Physician: Bruce Escamilla MD Chief complaint left-sided weakness HISTORY was OBTAINED FROM PATIENT / Access Point NOTES History of present illness 55-year-old female, awaiting MRI under sedation per outpatient neurologist for upper extremity tremors evaluation, w/ significant RLS, faceplanted into table yesterday with subsequent raccoon eyes associated lightheadness/feet gave way without LOC without convulsions heard by family in another room, NOW presented to ER today due to slurred/repetitive/fragmented speech per family and left upper and lower extremity weakness and paresthesia/ left nasolabial fold less/left facial sensation less. In the ER, vitals stable, patient refused NM aspirin, tolerated PO ASA Discharged 2 days ago for COPD exacerbation, resolving cough/pleuritic pain s/p levaquin prednisone. Hospital Course Yolis Ornelas is a 55-year-old female with diabetes mellitus with diabetic neuropathy, insulin dependent, bilateral foot drop, binasal hemianopsia, COPD, oxygen dependent, 3 liters at home, CHF, bipolar disorder, restless leg syndrome and upper extremities tremors, osteoarthritis and sleep apnea admitted for cerebrovascular accident, hypokalemia, acute kidney injury, and facial trauma due to recent fall. 1. Acute cerebrovascular accident, present on admission. Active - Patient presented with left sided weakness, facial sensation loss, mild intermittent apraxia and aphasia.initial NIHSS 12 - CT brain #[address] #2 brain revealed new deep white matter hypodensity within the right cerebellar hemisphere when compared with the prior study.CT #3 done per neurologist rec shows Subtle hypodensity in the right occipital lobe and cerebellum suspicious for acute infarcts.all in the first 24 done - MRI brain stroke protocol under conscious sedation (patient with extreme claustrophobia) was attempted, however, patient did not fit and desaturated. Patient states she had to be intubated for MRI in 2012. Neurologist recommended getting MRI with intubation and patient would likely require transfer for this study. - Allow permissive hypertension - Continued aspirin, dose increased to 325 mg daily - Considered switching and/or adding plavix, neurology does not think this is aspirin failure. He thinks recent change to modifiable risk/uncontrolled blood sugar due to steroid for COPD may have Contributed. - Atorvastatin, 40 mg daily - Continued physical therapy, occupational therapy, speech and swallow evaluations. - Neurology consulted, Dr. Nguyen is her outpatient neurologist. has seen her on current admission. We appreciated his expertise. - ECHO within normal limits and unchanged since previous study. - Carotid duplex within normal limits - Per neurology recommendation, Scott Clemens, patient is being transferred to [facility] for higher level of care and to have MRI/MRA brain performed under conscious sedation as due to patient's habitus, she was not able to fit into MRI machine here. 2. Hypokalemia, chronic, present on admission. Improved - Potassium 4.4 on discharge. 3. Acute kidney injury, present on admission. Improved - BUN 13 and Creatinine 0.99 on discharge. 4. Leukocytosis, present on admission. Improving - Most likely due to recent prednisone taken for COPD exacerbation 5. Facial trauma secondary to ground level fall, present on admission. Active - Most likely due to diabetic neuropathy, bilateral foot drop, may be possible seizure (patient denies, CPK negative), orthostatic hypotension, hypokalemia - CT face revealed minimally displaced nasal bone fractures with questionable minimally displaced anterior wall right maxillary sinus fracture versus vascular groove - Consulted ENT Dr Peterson - Continued Tylenol for pain 6. Diabetes mellitus, chronic, poorly controlled, present on admission. Active - Insulin dependent x 10 years - Poorly controlled, Hb A1c 13.5 - Nutritional and high dose correctional insulin -She used U500 Home insulin regimen which is nonformulary here. She was given NPH 50 units twice a day with sliding scale on prior admission. 7.Probable asymptomatic urinary tract infection, present on admission. Resolved - Discontinued ceftriaxone as urine culture came back positive for mixed normal urogenital doyle. 8. Transaminitis, chronic, present on admission. Improved 9. Seizure disorder -There was initial concern for breakthrough seizure causing fall and nasal fracture 1 day prior to stroke and second seizure causing Todds paralysis but this seems exceedingly unlikely given paralysis persisted Chronic issues known prior to admission, present on admission #Upper extremity DVT secondary to PICC line, treated with warfarin # Restless leg syndrome / upper extremities tremors - her outpatient neurologist ordered MRI under anesthesiology and scheduled for next , Bilateral drop foot, binasal hemianopsia #Diabetic neuropathy/CKD #Asthma / sleep apnea / COPD / home O2 3LNC #CHF / DLP / HTN # GERD #Bipolar disorder migraines Anxiety/depression/ADHD --prn CPAP if comfortable for face Disposition: Patient was transferred to [facility] for higher level of care, Exam Vital Signs (Last) Date Time Temp Pulse Resp B/P Pulse Ox O2 Delivery O2 Flow Rate FiO2 06/18/16 16:28 90 20 159/95 96 Nasal Cannula 2.00 06/18/16 12:09 36.5 Exam General: Obese, pleasant female lying in no distress, alert and oriented x 3 HEENT: Bruised nose, raccoon eyes, anicteric sclera, extraocular movement intact , left eye ptosis, hearing intact Neck: Supple without adenopathy Lungs: Clear to auscultation bilaterally, no accessory muscle use Heart: Regular rate and rhythm, no murmurs appreciated, equal radial pulses Abdomen: Obese, soft, nontender, normoactive bowel sounds, no hepatosplenomegaly Extremities: No edema, clubbing, cyanosis. Has constant tremor of restless legs , equal bilaterally. Neuro: Left nasolabial fold less prominent, no sensation left face, left upper extremity, diffusely intermittent tremors of right upper extremity, strength grossly intact of right upper and lower limbs 5/5, strength left upper extremity 1-/5, lower extremity 2+/5, mild intermittent apraxia Test 06/14/16 16:15 06/14/16 23:50 06/15/16 03:40 06/15/16 13:58 Prothrombin Time 10.8sec (8.1-12.5) Prothromb Time International Ratio 1.01ratio Activated Partial Thromboplast Time 22.8sec (22.8-33.0) Troponin T 0.010ug/L (0.0-0.011) Cortisol 7.7ug/dL (.) Total Creatine Kinase 128U/L (21-215) Test 06/15/16 15:30 06/16/16 04:25 06/17/16 03:55 06/18/16 03:35 Urine Color Yellow (YELLOW) Urine Appearance Hazy (CLEAR,HAZY) Urine pH 6.0 (5.0-8.0) Urine Specific [place] 1.020 (1.003-1.035) Urine Protein Negativemg/dL (NEG,TRACE) Urine Glucose (UA) 100mg/dL (NEGATIVE) Urine Ketones Tracemg/dL (NEGATIVE) Urine Occult Blood Negative (NEGATIVE) Urine Nitrite Negative (NEGATIVE) Urine Bilirubin Negative (NEGATIVE) Urine Urobilinogen Normalmg/dL (NORMAL) Urine Leukocyte Esterase Trace (NEGATIVE) Urine RBC 0-2/hpf (0-2) Urine WBC 6-10/hpf (0-5) Urine Epithelial Cells Moderate/hpf (NONE-MOD) Urine Crystals None seen (NONE SEEN) Urine Bacteria None/hpf (NONE-FEW) Urine Hyaline Casts None/lpf (NONE) Urine Granular Casts None seen (NONE SEEN) Urine Waxy Casts None seen (NONE SEEN) Urine Red Blood Cell Casts None seen (NONE SEEN) Urine White Blood Cell Casts None seen (NONE SEEN) Urine Mucus None seen (None Seen) Urine Trichomonas None seen (NONE SEEN) Urine Yeast None (NONE SEEN) Urinalysis Comment None Urine Culture Reflexed Indicated Triglycerides Level 396mg/dL (0-149) Cholesterol Level 189mg/dL (100-199) LDL Cholesterol, Calculated 74.800mg/dL (0-99) VLDL Cholesterol 79.200mg/dL HDL Cholesterol 35mg/dL (>39) Cholesterol/HDL Ratio 5.40 (0.0-4.4) Primidone (Mysoline) Level 1.9ug/mL (5.0-12.0) Lamotrigine (Lamictal) Level 9.6ug/mL (2.0-20.0) Topiramate Level 2.6ug/mL (2.0-25.0) Phenobarbital (Primidone Metabolite None detectedug/mL Magnesium Level 2.3mg/dL (1.6-2.6) White Blood Count 9.5th/mm3 (3.8-10.1) Red Blood Count 3.99mil/mm3 (3.90-5.20) Hemoglobin 12.2g/dL (12.0-15.6) Hematocrit 37.8% (35.0-46.0) Mean Corpuscular Volume 94.7fL (81-100) Mean Corpuscular Hemoglobin 30.6pg (27.0-35.0) Mean Corpuscular Hemoglobin Concent 32.3% (32.0-37.0) Red Cell Distribution Width 14.7% (12.3-15.4) Platelet Count 280bil/L (150-400) Neutrophils (%) (Auto) 59.3% (40-74) Lymphocytes (%) (Auto) 31.4% (14-46) Monocytes (%) (Auto) 6.6% (4-12) Eosinophils (%) (Auto) 0.6% (0-5) Basophils (%) (Auto) 0.2% (0-3) Sodium Level 139mEq/L (134-144) Potassium Level 4.4mEq/L (3.5-5.2) Chloride Level 99mEq/L (97-108) Carbon Dioxide Level 25mmol/L (18-29) Blood Urea Nitrogen 13mg/dL (6-24) Creatinine 0.99mg/dL (0.57-1.00) Estimat Glomerular Filtration Rate 84mL/min (>59) Glucose Level 194mg/dL (60-99) Calcium Level 9.4mg/dL (8.5-10.1) Total Bilirubin 0.2mg/dL (0.0-1.2) Aspartate Amino Transf (AST/SGOT) 33U/L (0-50) Alanine Aminotransferase (ALT/SGPT) 52U/L (0-32) Alkaline Phosphatase 66U/L (25-150) Total Protein 6.1g/dL (6.4-8.4) Albumin 3.9g/dL (3.4-5.0) Microbiology Results Urine culture grew mixed urogenital doyle. . Discharge Medications Discharge Medications Amphet Asp/Amphet/D-Amphet (Adderall) 30 Mg Tablet 30 MG PO BIDWM (Reported) Ascorbate Calcium (Vitamin C) 500 Mg Tablet 500 MG PO TIDWM (Reported) Aspirin (Aspirin) 325 Mg Tablet 325 MG PO DAILY Prescribed by: MARIA ELENA OSBORN DO Aspirin Chew (Aspirin Chew) 81 Mg Chew 81 MG PO HS (Reported) Atorvastatin (Lipitor) 40 Mg Tablet 40 MG PO DAILY Prescribed by: MARIA ELENA OSBORN DO Budesonide/Formoterol 160-4.5 mcg Inh (Symbicort 160-4.5 mcg Inh) 120 Puff Inhaler 2 PUFF INHALATION BID (Reported) Calcium Carbonate (Calcium Carbonate) 600 Mg Tablet 600 MG PO DAILYWM (Reported ) Chromium Picolinate (Chromium Picolinate) 200 Mcg Capsule 200 MCG PO QAM ( Reported) Duloxetine (Cymbalta) 60 Mg Capsule.dr 60 MG PO QAM (Reported) Fluoxetine (Prozac) 40 Mg Capsule 40 MG PO QAM (Reported) Furosemide (Furosemide) 80 Mg Tab 120 MG PO AM (Reported) Hydrochlorothiazide (Hydrochlorothiazide) 50 Mg Tablet 50 MG PO QAM (Reported) Insulin Regular, Human (HUMulin-R U-500 Insulin Vial) 500 Unit/1 Ml Vial 0.37 ML SQ DAILYWM (Reported) BREAKFAST Insulin Regular, Human (HUMulin-R U-500 Insulin Vial) 500 Unit/1 Ml Vial 0.27 ML SUBQ DAILYWL (Reported) LUNCH Insulin Regular, Human (HUMulin-R U-500 Insulin Vial) 500 Unit/1 Ml Vial 0.17 ML SUBQ DAILYWD (Reported) DINNER Ipratropium/Albuterol Sulfate (Iprat-Albut 0.5-3(2.5) mg/3 mL Inhalant Soln) 3 Ml Ampul.neb 3 ML IH TID (Reported) Lamotrigine (Lamotrigine) 200 Mg Tablet 400 MG PO BID (Reported) Lisdexamfetamine Dimesylate (Vyvanse) 70 Mg Capsule 70 MG PO QAM (Reported) Lisdexamfetamine Dimesylate (Vyvanse) 70 Mg Capsule 70 MG PO DAILY (Reported) Loratadine (Claritin) 10 Mg Capsule 10 MG PO QAM (Reported) Multivit with Calcium,Iron,Min (Therapeutic M) 1 Each Tablet 1 EACH PO QAM ( Reported) Omeprazole Magnesium (Prilosec Otc) 20 Mg Tablet.dr 40 MG PO BIDWM (Reported) Potassium Chloride (Potassium Chloride Powder) 20 Meq Packet 20 MEQ PO BIDWM ( Reported) 40 MEQ IN AM, 20 MEQ AT NOON, 20 MEQ IN EVENING DISSOLVE CONTENTS OF PACKET IN FULL GLASS OF WATER AND DRING TWO TIMES DAILY. TAKE WITH FOOD Potassium Chloride Powder (Klor-Con Powder) 20 Meq Packet 40 MEQ PO QAM ( Reported) 40 MEQ IN AM, 20 MEQ AT NOON, 20 MEQ IN EVENING DISSOLVE CONTENTS OF ONE PACKET IN FULL GLASS OF WATER AND DRINK ONCE DAILY. Prednisone (PredniSONE) 20 Mg Tablet 10-40 MG PO DAILYWM (Reported) Pregabalin (Lyrica) 75 Mg Capsule 75 MG PO BIDWM (Reported) 75 MG IN AM & NOON, 150 MG AT HS Pregabalin (Lyrica) 75 Mg Capsule 150 MG PO HS (Reported) 75 MG IN AM & NOON, 150 MG AT HS Primidone (Primidone) 50 Mg Tablet 100 MG PO HS (Reported) Ropinirole (Ropinirole) 4 Mg Tablet 4 MG PO BID (Reported) Simvastatin (Simvastatin) 80 Mg Tablet 80 MG PO HS (Reported) Tiotropium [place] (Spiriva) 18 Mcg Cap.w.dev 18 MCG IH HS (Reported) Topiramate (Topiramate) 50 Mg Tablet 50 MG PO BID (Reported) Zinc Gluconate (Zinc) 50 Mg Tablet 50 MG PO QAM (Reported) As needed Albuterol HFA (Proair HFA) 8.5 Gm Hfa.aer.ad 2 PUFFS IH Q4H PRN PRN For Shortness of Breath (Reported) Albuterol Neb Soln (Albuterol Neb Soln) 2.5 Mg/3 Ml Vial.neb 2.5 MG IH Q2 PRN PRN For Shortness of Breath (Reported) Benzonatate (Benzonatate) 200 Mg Capsule 200 MG PO Q8H PRN PRN For Cough ( Reported) Fluticasone Propionate (Fluticasone Propionate Nasal) 16 Gm [place].susp 2 SPRAY NS HS PRN PRN allergy symptoms (Reported) Guaifenesin/Codeine Phosphate (Codeine-Guaifen 10-100 mg/5 ml) 120 Ml Liquid 15 ML PO QID PRN PRN For Cough Prescribed by: BRIA PETERSON MD Insulin Lispro (HumaLOG U100 Insulin Pen) 100 Unit/1 Ml Insuln.pen 5-30 UNIT SUBQ ACHS PRN PRN HYPERGLYCEMIA (Reported) sliding scale Naphazoline HCl/Pheniramine (Allergy Eye Drops) 0.025 %-0.3 % Drops 2 DROP BOTH_ EYES BID PRN PRN For Eye Irritation (Reported) Nystatin (Nystatin) 60 Applic/15 Gm Cream 1 APPLIC TOP BID PRN PRN RASH ( Reported) Oxymetazoline HCl (Nasal [place] Sinus) 30 Ml [place] 1 SPRAY NS BID PRN PRN For Congestion (Reported) Propylene Glycol/Peg 400/Pf (Systane 0.3-0.4% Eye Drops) 1 Each Droperette 2 DROP BOTH_EYES Q2H PRN PRN DRY EYES (Reported) Additional med instructions 1. Aspirin, 325 mg, daily 2. Atorvastatin, 40 mg daily Followup Plan Discharge Diet: Diabetic Discharge Activity: Limited until seen by PCP Follow-up Provider: Kevin Mitchell MD Follow-up with PCP in: 2 weeks Time spent Greater than 30 minutes was spent in preparation of discharge with greater than 50% of that time dedicated to patient counseling and coordination of care. . Attending Statement The patient was seen and examined together with Dr. Osborn on 06/18/2016 and I agree with the history, exam and plan as outlined in the note above. . copies to: Kevin Mitchell MD, Oksana S DO Jun 18, 2016 17:02 Magdi Contreras MD Jun 19, 2016 07:32
--- NOTE | 2016-06-18 19:39 | NUR ---
Transfer: Report given to Kassi SHARMA at [facility] at .
[2016-06-19] MEDS ORDERED: VYVANSE 70MG PO SCH (08:30)
--- NOTE | 2016-06-19 08:50 | NUR ---
[facility].
== END 2016-06-18 19:30 | disposition short-term general hospital (02) | DRG 65 ==
LOC: SED 16:08 → PCC 18:49
PROVIDERS: ADMIT Urology; ATTEND Urology
DX: I63.9 Cerebral infarction, unspecified (principal); E87.1 Hypo-osmolality and hyponatremia; N17.9 Acute kidney failure, unspecified; N39.0 Urinary tract infection, site not specified; S02.40CA Maxillary fracture, right side, initial encounter for closed fracture; G81.94 Hemiplegia, unspecified affecting left nondominant side; E87.6 Hypokalemia; Z91.81 History of falling; Z79.82 Long term (current) use of aspirin; Z79.4 Long term (current) use of insulin; Z79.52 Long term (current) use of systemic steroids; Z86.718 Personal history of other venous thrombosis and embolism; R40.2142 Coma scale, eyes open, spontaneous, at arrival to emergency department; R40.2242 Coma scale, best verbal response, confused conversation, at arrival to emergency department; R40.2362 Coma scale, best motor response, obeys commands, at arrival to emergency department; R40.2412 Glasgow coma scale score 13-15, at arrival to emergency department; R29.712 NIHSS score 12; R29.810 Facial weakness; R47.01 Aphasia; W19.XXXA Unspecified fall, initial encounter; Y92.012 Bathroom of single-family (private) house as the place of occurrence of the external cause; Y93.E1 Activity, personal bathing and showering; Y99.9 Unspecified external cause status; N18.9 Chronic kidney disease, unspecified; D72.829 Elevated white blood cell count, unspecified; T38.0X5A Adverse effect of glucocorticoids and synthetic analogues, initial encounter; R74.0 Nonspecific elevation of levels of transaminase and lactic acid dehydrogenase [LDH]; S02.2XXA Fracture of nasal bones, initial encounter for closed fracture; G40.909 Epilepsy, unspecified, not intractable, without status epilepticus; R48.2 Apraxia; E11.65 Type 2 diabetes mellitus with hyperglycemia

== ENCOUNTER 2016-06-21 20:14 | Inpatient (IN) | payer OTHER, MEDICAID ==
[~2016-06-21] VITALS: Ht 172.7 cm; Wt 116.7 kg
[~2016-06-21 20:14] MED LIST changes: +ASPI325T32 PO; +ASPI81TA3 PO; +BENZ200C44 PO; +CALC600T20 PO; -CALC600T85 PO; -FENO48TA4 PO; +LIP40 PO; +LORA10CA PO; -LORA10TA7 PO; -MULT-1007 PO; +MULT-140 PO; +MYCC TOP; -NAPH15DR BOTH_EYES; +NAPH15DR63 BOTH_EYES; -OXYM30SP NS; +OXYM30SP18 NS; +POTA20PA12 PO; +PRE20 PO; -PREG200C PO; +PREG75CA PO; +PRIM50TA PO; -PROP15DR BOTH_EYES; +PROP1DRO BOTH_EYES; -ROPI PO; +ROPI4TAB4 PO
--- NOTE | 2016-06-21 21:11 | PCM.HPMED ---
Subjective Date of Service Jun 21, 2016 Primary Provider: Admitting Physician: Conner Salas MD Primary Care Physician: Kevin Mitchell MD Attending Physician: Conner Salas MD Admit Status: Direct Admit (return transfer from [place]) Chief Complaint: Return transfer from [place]: Suspected CVA/TIA History of Present Illness: Ms. Ornelas is an unfortunate, morbidly obese, 55-year-old female with a complex medical history including seizure disorder, restless leg syndrome, high insulin requirement diabetes with complications of neuropathy and foot drop, chronic respiratory failure secondary to COPD, congestive heart failure, bipolar disorder, and by nasal hemianopsia, is here on return transfer from [facility] for workup of CVA with associated ground-level fall and resultant nasal fractures. Hospital day 1 Patient was transferred from [facility] to [place] on 06/18/16 for workup of CVA. During the initial admission here at our facility, MR brain was unable to be completed secondary to patient's body habitus and extreme claustrophobia. At that time, it was recommended she be transferred out to complete the necessary studies. At [facility], neurology consultation completed, with appropriate imaging. reports indicate that patient's exams revealed superimposed psychophysiologic overlay making her exams unreliable, and it was concluded that her symptoms were unlikely related to stroke. Imaging was negative for acute infarct or MS. Brief details of imaging as noted below: --- MR cervical spine with and without contrast 06/20: Small 0.4 cm longitudinal linear T2 hyperintensity of left paracentral cord at C6, but no enhancement; previous posterior bilateral fusion C4-T2 with posterior decompression C5-C7; moderate central canal stenosis C3-C4 from disc osteophyte complex and facet arthropathy with ligamentum flavum thickening; no additional areas of central canal or significant foraminal stenosis noted --- MR brain with and without contrast with MR angiogram of head 06/20: No evidence of infarct or other acute abnormality; no intracranial stenosis or aneurysm --- EEG 06/21: Normal wake/sleep EEG: No clinical or electrographic seizures occurred and no underlying epileptiform abnormalities or focal changes were noted Dr. Oates accepted patient as return transfer 06/21/2016. Prior to transport from [facility], temp 36.1, BP 117/66, heart rate 96, respiratory rate 18, 93% on 3 L nasal cannula; no bowel movements reported; discharge physical exam from [place] revealed patient was alert and oriented by 4, anxious, cooperative, yet forgetful; it is reported that her left-sided numbness and gait and parents were improved. On arrival, patient appeared to be somewhat somnolent, but arousable to verbal stimulation. She states that she is extremely fatigued. When asked about her experience at [place], she became very tearful. She is able to recall that her workup was negative, and caused great upset and grief for her, because she felt as if no one believed her and that she was "faking it." She was not open to further conversation, but did confirm that she was not currently experiencing any pain, shortness of breath, nausea, vomiting, or chest pain. She also denies any symptoms of cough or respiratory-like illnesses. She did confirm that she has not had a bowel movement in the recent days. She notes that her restless legs were increasing in severity at time of this evaluation, because she was upset. She states she wears a CPAP at home, and has brought the device with her. She is unsure what happened to her, and she wishes that there was an answer. Initial vitals here included temperature 36.6, pulse 85, respiratory rate 20, blood pressure 108/65, 96% on 1 L nasal cannula. She was transferred to the floor in stable condition. Review of Systems: Complete ROS obtained; pertinent positives and negatives as noted in history of present illness Allergies Coded Allergies: Contrast Media (Verified Allergy, Severe, Anaphylaxis, 06/28/14) Sulfa (Sulfonamide Antibiotics) (Verified Allergy, Severe, Rash,Itching, SOB, 06/28/14) iodine (Verified Allergy, Severe, UNSPEC, 06/28/14) topical iodine causes rash ketorolac (Verified Allergy, Severe, 06/28/14) paranoia per pt meperidine (Verified Allergy, Severe, UNSPEC, 06/28/14) paranoia and asthma povidone (Verified Allergy, Severe, 06/28/14) cefazolin sodium (Verified Allergy, Intermediate, Rash,Itching,SOB, ) shellfish derived (Verified Allergy, Unknown, 06/28/14) asthma, rash from food Uncoded Allergies: FRAGRANCES (Allergy, Unknown, 04/17/06) SEAFOOD (Allergy, Unknown, 07/10/03) Home Medications Discharge list of medications included in [place] report: Gynecological Lotrimin Colace twice daily Heparin subcutaneous Humalog, lispro, 15 units 3 times daily with meals Humalog lispro correctional dose Lantus 30 units at bedtime Lactulose 15 mL 3 times daily Ativan 1 mg every 8 hours as needed Mycostatin as needed Lasix 20 mg daily Cymbalta 60 mg at bedtime DuoNeb every 4 hours Pre-N 75 mg daily Prozac 20 mg daily Vitamin C 500 mg 3 times daily Aspirin 325 mg daily Lipitor 40 mg daily Symbicort twice daily Lamictal 400 mg twice daily Multivitamin daily Omeprazole 40 mg twice daily Lyrica 150 mg at bedtime Primidone 150 mg at bedtime Requip 4 mg twice daily Spiriva at that time Topamax 50 mg twice daily Zinc 50 mg daily Albuterol as needed Eyedrops as needed Robitussin before meals as needed Tessalon Perles 3 times daily if needed Oxycodone-acetaminophen 5-325 mg 1-2 tabs every 4-6 hours as needed Adderall 30 mg twice daily PMH Neurology evaluations included: Unspecified migraine, without mention of intractable migraine and without mention of status migrainosus Peripheral autonomic neuropathy Obsessive-compulsive disorder Attention deficit disorder Bipolar 1 disorder Variants of migraine with intractable migraine without status migrainosus Hypersomnia with sleep apnea Congestive heart failure, unspecified Hearing loss Unspecified adjustment reaction Chronic obstructive asthma Type II diabetes mellitus GERD Upper extremity DVT from PICC placement Surgical History L4-S1 laminectomy in 1994 Right shoulder acromioplasty in 1984 Left shoulder acromioplasty in 1990, 1993 Left knee arthroscopy in 1997 Jayce fundoplication in 1993 C5-7 decompression, C3-T2 PSIS in July [address] Taylor at [facility] Family History Myocardial infarction Diabetes Social History Hx Alcohol Use: Yes (occasional) Hx Substance Use: No Hx Tobacco Use: No Smoking Status: Never Smoker Living Arrangement: with Family (local, with ) Exam Exam General: Obese woman resting supine, in no acute distress HEENT: Lower periorbital ecchymotic lesions noted bilaterally with reported tenderness to palpation, no conjunctival hemorrhage, bandage on bridge of nose also tender, mucous membranes moist Cardiac: Faint sounds secondary to body habitus at time of exam; regular rate and rhythm Respiratory: Faint sounds secondary to body habitus, with poor inspiratory effort; mild wheeze appreciated R > L upper lung field Abdomen: Obese, soft, nontender Extremities: Bilateral lower extremities noted to be restless and time of examination without any swelling or pain; able to move 4 out of 4 extremities against gravity Skin: Warm and dry Pulses: Radial equal and intact Neuro: Cranial nerves appeared to be grossly intact, when patient was interactive her facial expressions were equal and symmetric, speech was without slur Psych: Notably tearful at time of my examination; multiple report stating there is incongruency in her responses to questioning; she responded appropriately when I interviewed her, and was able to recall details of her recent admission at [place]. Limited assessment of insight and judgment Assessment & Plan Ms. Ornelas is an unfortunate, morbidly obese, 55-year-old female with a complex medical history including seizure disorder, restless leg syndrome, high insulin requirement diabetes with complications of neuropathy and foot drop, chronic respiratory failure secondary to COPD, congestive heart failure, bipolar disorder, and by nasal hemianopsia, is here on return transfer from [facility] for workup of CVA with associated ground-level fall and resultant nasal fractures. Hospital day 1 Left-sided weakness, loss of facial sensation, and intermittent apraxia and aphasia, acute, present on admission. Resolved - This was the diagnosis carried prior to transfer to [facility] for continued workup - Recent workup by [place] was unremarkable for evidence of CVA; imaging did not reveal any etiology for symptoms - Was seen by [facility] neurology during most recent admission; consider reconsultation - Consider psychiatric consultation - PT eval Altered mental status, chronicity unknown. Under evaluation - Patient was intermittently somnolent and appropriately responsive for different providers and caretakers - ABG was ordered considering patient's body habitus and unknown medication administration during EMS transport - Patient was in no acute distress at time of evaluation and denied any symptoms of fever, chills, shortness of breath, cough - Evaluation for infection, including labs and vital sign monitoring; unlikely etiology - May be secondary to underlying psychiatric diagnoses - Avoidance of sedatives - Continue to monitor Constipation, chronicity unknown, present on admission. Under evaluation - No pain with examination at time of admission; patient has not mobilized significantly - Miralax scheduled - Reported to have received suppository prior to transport - Consider abd XR; then enema(s) if no improvement/evidence SBO Insulin-dependent diabetes mellitus, chronic. Uncontrolled - A1c 06/2016: 13.5 - Record from [place] indicates glargine 30 units nightly plus correctional - 10 units glargine administered night of admission - Medium dose correctional scale in place - Adjust as needed Nasal fracture status post ground level fall, acute, present on admission. Presumed stable - Conservative management/supportive care Suspected obesity hypoventilation/KENAN on CPAP therapy, chronic. Presumed stable - Patient has own CPAP for use COPD. Presumed stable - Duonebs QIDWA + accunebs q2h prn History of seizures, chronic. Presumed stable - Resumed Topamax and Lamictal at time of admission based on doses in [place] report - Med rec needs to be completed, with verification Medication reconciliation will need to be completed in the morning. Patient did not request any nighttime medications PRN: Fever/pain/bowel/antinausea GI: Not indicated DVT: Heparin every 8 Diet: Diabetic heart based on bedside swallow eval CODE STATUS: Full code Patient status: Due to severity of presenting symptoms, risk of adverse events, and likely course of care, anticipated length of stay is greater than 2 midnights; admitted as inpatient; note that this admission is merely a continuation of her previous session was transferred to [place] and then immediately transferred back to [facility] Pain Evaluation: Adequate Pain Control GI Prophylaxis: Not indicated VTE Prophylaxis: Sub-Q Heparin (Unfractionated) Resuscitation Status: CPR: Attempt Resuscitation Attending Statement The patient was seen and examined together with Dr. Robles on 06/21 and I agree with the history, exam and plan as outlined in the note above. Consider consulting Dr Chavez again to determine etiology of persistent weakness but consider psychogenic causes. . Kaci Robles DO Jun 21, 2016 21:11 Conner Salas MD Jun 22, 2016 00:43
[2016-06-21 21:19] VITALS: BP 108/65; PULSE 85; RESP 20; O2SAT 96
[2016-06-21] MEDS ORDERED: Polyethylene Glycol (PEG) 17 Gm Powder PO PRN (21:30)
[2016-06-21] MEDS ORDERED: Ondansetron 2 mg/mL 2 mL Inj IVPUSH PRN (21:30)
[2016-06-21] MEDS ORDERED: Alum-Mag Hydrox-Simeth 30 mL Suspension PO PRN (21:30)
--- NOTE | 2016-06-21 22:19 | NUR ---
ADMISSION PATIENT ADMITTED. VERBAL REPORT TO [facility] PATIENT FORGETS WORDS AT TIMES, AND THEN REPEATS PHRASES MULTIPLE TIMES. APPEARS UNSURE OF INSULIN DOSAGE AND TIMES. ALSO UNCLEAR ABOUT CHOLESTEROL MEDICATION ANXIOUS, THEN FATIGUED. FREQUENTLY SEARCHES FOR WORDS.
[2016-06-21] MEDS ORDERED: Glucose 40% Oral Gel 15 Gm Tube PO PRN (22:35)
--- NOTE | 2016-06-21 23:40 | NUR ---
Arrival to [facility] [place] [facility]001 Patient arrived to [facility] at 1930 via EMS. patient drowsy. falls asleep during conversation. on 3L via NC. 02 saturations 99-100%. eyes appear dilated. patient unable to hold attention. sweaty. patient states I parker feel like I do when I have a low blood sugar. patients sugar checked and was 107. Vitals stable. o2 decreased to 1L patient o2 saturations 90-92% breathing nonlabored. patient has not had BM since 06/12 per report. MD notified of patient condition. Patient has left arm weakness. she is able to lift her left leg off the bed but states "it is weak". MD in to see patient. patient appears to be more alert with no speech difficulty. will continue to monitor.
--- NOTE | 2016-06-22 | NUR ---
anxiety patient became very anxious and agitated regarding her diet. explained to patient that swallow eval will be completed in the morning. patient called family, rn spoke with family. reassured. care ongoing.
--- NOTE | 2016-06-22 00:53 | NUR ---
diet clarification clarified diet with DR Robles, nurse swallow eval (completed) and ordered for swallow evaluation in am. explained to patient. patient refuses honey purreed diet at this time.
--- NOTE | 2016-06-22 00:55 | NUR ---
refused abg patient refused abg. notiefed dr horne via cookpaging
[2016-06-22] MEDS: Heparin 5,000 Unit/mL Inj SUBQ SCH ×3 (01:09→18:48)
[2016-06-22] MEDS: Insulin GLARgine 100 Unit/mL Syringe SUBQ SCH ×2 (01:09→20:56)
[2016-06-22 01:53] VITALS: BP 130/69; PULSE 88; RESP 18; O2SAT 94
[2016-06-22 05:12] LABS: BASOPHILS % (AUTO) 0.1 % (0-3); EOSINOPHILS % (AUTO) 1.7 % (0-5); MONOCYTES % (AUTO) 6.3 % (4-12); Mean Corpuscular Hemoglobin 30.4 pg (27.0-35.0); Mean Corpuscular Volume 98.6 fL (81-100); NEUTROPHILS % (AUTO) 75.7 % (40-74); Platelet Count 214 bil/L (150-400)
[2016-06-22 05:13] VITALS: BP 144/56; PULSE 97; RESP 20; O2SAT 92
[2016-06-22 05:43] LABS: Magnesium 2.3 mg/dL (1.6-2.6); Phosphorus 3.1 mg/dL (2.5-4.9)
--- NOTE | 2016-06-22 05:52 | NUR ---
urine retention bladder scan volume 450 ml. notified via Ecelles Carson
[2016-06-22] MEDS ORDERED: Albuterol-Ipratropium 3 mL Inhalation Solution NEB SCH (06:00)
[2016-06-22] MEDS ORDERED: Albuterol-Ipratropium 3 mL Inhalation Solution NEB PRN (08:15)
[2016-06-22] MEDS ORDERED: Budesonide-Formot 160-4.5 mCg 6.9 Gm Inhaler INHALATION SCH (08:30)
[2016-06-22 08:40] VITALS: BP 136/76; PULSE 104; RESP 19; O2SAT 95
[2016-06-22] MEDS: Insulin LISPRO 300 Unit/3 mL Inj SUBQ SCH ×4 (09:26→20:48)
[2016-06-22] MEDS: lamoTRIgine 100 mg Tablet PO SCH ×2 (09:28→19:47)
[2016-06-22] MEDS: Polyethylene Glycol (PEG) 17 Gm Powder PO SCH (09:28)
--- NOTE | 2016-06-22 11:00 | PCM.PNMED ---
Subjective Date of Service Jun 22, 2016 Subjective pt still has weakness on LUE, bileteral LE, tremors denied any pain, Exam Vital Signs Vital Sign - Last Date Time Temp Pulse Resp B/P Pulse Ox O2 Delivery O2 Flow Rate FiO2 06/22/16 08:40 36.5 104 19 136/76 95 Nasal Cannula 1.00 Intake and Output 06/21/16 06/21/16 06/22/16 Cumulative From/Thru 15:00 23:00 07:00 06/21/16 21:19 - 06/22/16 06:28 Intake Total 0 ml 0 ml Output Total 0 ml 0 ml Balance 0 ml 0 ml Intake Oral 0 ml 0 ml Output Urine Total 0 ml 0 ml Exam obese lady, mildly anxious, resting tremors throughout no JVD, MMM, no LAD RRR, nl s1, s2 no mrg CTAB, no w,c S,ND,NT,normoactive BS+ warm, no edema, pulses 2/2 neuro: CN2-12 grossly intact, motor Left arm, unable to lift above shoulder level. BLE equally, 4-5/5, able to lift up against resistance but weak. IVs and Medications Medications Reviewed: Medications were reviewed in detail Lab and Diagnostics Result Diagram: 06/22/1644406/22/16444 Assessment & Plan Ms. Ornelas is an unfortunate, morbidly obese, 55-year-old female with a complex medical history including seizure disorder, restless leg syndrome, high insulin requirement diabetes with complications of neuropathy and foot drop, chronic respiratory failure secondary to COPD, congestive heart failure, bipolar disorder, and by nasal hemianopsia, is here on return transfer from [facility] for workup of CVA with associated ground-level fall and resultant nasal fractures. Hospital day 1 acute, active Left-sided weakness, loss of facial sensation, and intermittent apraxia and aphasia, acute, present on admission. Resolved - This was the diagnosis carried prior to transfer to [facility] for continued workup - Recent workup by [place] was unremarkable for evidence of CVA; imaging did not reveal any etiology for symptoms - spoked to , no further recommendation for w/u and tx. -will consider psychiatric consultation, primary Psychiatry: Dr.Vida Lyle in [place] -patient greatly benefits from PT/OT given deconditioned state. -primidone resumed for central tremors Constipation, chronicity unknown, present on admission. Under evaluation - No pain with examination at time of admission; patient has not mobilized significantly - Miralax scheduled - Reported to have received suppository prior to transport - Consider abd XR; then enema(s) if no improvement/evidence SBO chronic, stable, resolved Altered mental status, chronicity unknown. Patient was intermittently somnolent and appropriately responsive for different providers and caretakers. ABG was ordered considering patient's body habitus and unknown medication administration during EMS transport. Patient was in no acute distress at time of evaluation and denied any symptoms of fever, chills, shortness of breath, cough - today pt remained alert and oriented, MS seems at baseline, - Avoidance of sedatives, continue to monitor Insulin-dependent diabetes mellitus, chronic. Uncontrolled - A1c 06/2016: 13.5 - Record from [place] indicates glargine 30 units nightly plus correctional - 10 units glargine administered night of admission - Medium dose correctional scale in place - Adjust as needed Nasal fracture status post ground level fall, acute, present on admission. Presumed stable - Conservative management/supportive care Suspected obesity hypoventilation/KENAN on CPAP therapy, chronic. Presumed stable - Patient has own CPAP for use COPD. Presumed stable - Duonebs QIDWA + accunebs q2h prn History of seizures, chronic. Presumed stable - Resumed Topamax and Lamictal at time of admission based on doses in [place] report - Med rec needs to be completed, with verification Medication reconciliation will need to be completed in the morning. Patient did not request any nighttime medications PRN: Fever/pain/bowel/antinausea GI: Not indicated DVT: Heparin every 8 Diet: Diabetic heart based on bedside swallow eval CODE STATUS: Full code Patient status:likely 1-2more days needs to optimize dispo GI Prophylaxis: Not indicated VTE Prophylaxis: Sub-Q Heparin (Unfractionated) Resuscitation Status: CPR: Attempt Resuscitation Time spent 35min Lara Naranjo MD Jun 22, 2016 10:59
[2016-06-22 12:33] VITALS: BP 136/83; PULSE 93; RESP 20; O2SAT 94
--- NOTE | 2016-06-22 14:52 | NUR ---
Social Work: Brief Note Data: Pt is a 55 y/o female admitted for CVA. Pt's PCP is Dr Mitchell, pt's insurance is [employer] Blind/disabled. Readmit score not listed. Pt was previously admitted at [facility] then transferred to [place] for an MRI and now was transferred back to [facility], she never went home. Pt reports still wanting to go to [facility] but that she doesn't think her insurance will cover it. RN RESOURCE NURSE states she would look into it. RN RESOURCE NURSE asked what their back up plan is to SNF, they state going home, pt's spouse was in the room and states that he will make it work. Pt tearful at the thought of having to go to SNF but states she knows it would be helpful for her. Pt reports that her primary insurance should be [employer] and [employer] ID # [id number] Group # [id number]. Pt showed RN RESOURCE NURSE card, only her 's name is on it and they state she is covered as well. RN RESOURCE NURSE left a voice mail with [facility] to refer pt, access given. RN RESOURCE NURSE will continue to follow. Assessment: Pt who is independent at baseline. Plan: Pt will d/c either to [facility] pending acceptance and insurance authorization, or home with family. RN RESOURCE NURSE will continue to follow. SVETLANA Oliver
--- NOTE | 2016-06-22 16:14 | NUR ---
Elimination Pt reports had not had a BM in several days, was also feeling she was unable to void in the bedpan. Miralax given with AM medication pass. Pt getting up and using the BSC, 1 per assist with FWW. Voided approx 2 L of yellow urine, and large BM x 1. Will continue to monitor.
[2016-06-22 17:17] VITALS: BP 145/79; PULSE 89; RESP 21; O2SAT 95
[2016-06-22] MEDS ORDERED: [UNRECOGNIZED DRUG - OTHER] PO SCH (17:30)
--- NOTE | 2016-06-22 19:18 | NUR ---
Transfer of care Care of pt. transferred to [place] at 1630 from Ernestina Bragg RN. Pt. is alert and oriented at this time. She c/o mild nose and knee pain but states it is tolerable. No other questions or concerns at this time.
[2016-06-22] MEDS: Fluticasone-Salmeterol 500-50 Inhaler INHALATION SCH (19:47)
[2016-06-22 20:39] VITALS: BP 136/74; PULSE 84; RESP 22; O2SAT 96
[2016-06-22] MEDS ORDERED: Tiotropium 18mcg/Cap 5 Capsule Inhaler Kit INHALATION SCH (21:00)
[2016-06-23] MEDS: Heparin 5,000 Unit/mL Inj SUBQ SCH ×2 (00:17→08:05)
[2016-06-23 05:21] LABS: BASOPHILS % (AUTO) 0.2 % (0-3); EOSINOPHILS % (AUTO) 2.7 % (0-5); MONOCYTES % (AUTO) 8.9 % (4-12); Mean Corpuscular Hemoglobin 30.7 pg (27.0-35.0); Mean Corpuscular Volume 97.1 fL (81-100); NEUTROPHILS % (AUTO) 66.4 % (40-74); Platelet Count 215 bil/L (150-400)
[2016-06-23 05:22] VITALS: BP 132/73; PULSE 84; RESP 20; O2SAT 93
[2016-06-23 05:50] LABS: Magnesium 2.2 mg/dL (1.6-2.6); Phosphorus 2.6 mg/dL (2.5-4.9)
--- NOTE | 2016-06-23 06:12 | NUR ---
BM Patient had 2 large BM's this shift. no s/s of urinary retention. will continue to monitor.
[2016-06-23] MEDS ORDERED: Amphetamines (Mixed) 10 mg Tablet PO SCH (08:00)
[2016-06-23] MEDS: Fluticasone-Salmeterol 500-50 Inhaler INHALATION SCH (08:04)
[2016-06-23] MEDS: lamoTRIgine 100 mg Tablet PO SCH (08:08)
[2016-06-23] MEDS: Polyethylene Glycol (PEG) 17 Gm Powder PO SCH (08:09)
[2016-06-23] MEDS: Insulin LISPRO 300 Unit/3 mL Inj SUBQ SCH ×2 (08:09→11:53)
[2016-06-23] MEDS: Albuterol 2.5 mg/3 mL Inhalation Solution NEB PRN ×2 (12:10→16:21)
[2016-06-23 12:17] VITALS: PULSE 102; RESP 20; O2SAT 98
[2016-06-23 13:18] VITALS: BP 133/71; PULSE 105; RESP 22; O2SAT 94
[2016-06-23] MEDS ORDERED: Nystatin 100,000 Unit/Gm 15 Gm Powder TOPICAL PRN (14:20)
--- NOTE | 2016-06-23 14:55 | NUR ---
Social work: Continued Discharge Plannning Data & Assessment: telecommunications linesworker spoke with Renetta at [facility] and she stated that a bedside assessment needs to completed before they can accept or deny the patient. Renetta stated that someone would come out and complete bedside assessment on 06/24/16. SW will continue to follow and assist patient throughout stay. Plan: Patient will likely discharge to [facility] if accepted clinically and authorized by the insurance. SW will continue to follow and assist patient throughout stay. Tsering Lowry, MIKY, NOA
--- NOTE | 2016-06-23 15:01 | PCM.PNMED ---
Subjective Date of Service Jun 23, 2016 Subjective pt was able to move her left arm close to her baseline and her legs. awaiting PT eval today Exam Vital Signs Vital Sign - Last Date Time Temp Pulse Resp B/P Pulse Ox O2 Delivery O2 Flow Rate FiO2 06/23/16 13:18 37.1 105 22 133/71 94 Nasal Cannula 1.00 Intake and Output 06/22/16 06/22/16 06/23/16 Cumulative From/Thru 15:00 23:00 07:00 06/21/16 21:19 - 06/23/16 06:43 Intake Total 1256 ml 646 ml 1902 ml Output Total 2250 ml 1150 ml 3400 ml Balance -994 ml -504 ml -1498 ml Intake Oral 1236 ml 636 ml 1872 ml IV Total 20 ml 10 ml 30 ml Output Urine Total 2250 ml 1150 ml 3400 ml # Voids 3 3 # Bowel Movements 1 2 3 Exam obese lady, mildly anxious, resting tremors throughout no JVD, MMM, no LAD RRR, nl s1, s2 no mrg CTAB, no w,c S,ND,NT,normoactive BS+ warm, no edema, pulses 2/2 neuro: CN2-12 grossly intact, motor able to lift left arm above the shoulder level, against over resistance IVs and Medications Medications Reviewed: Medications were reviewed in detail Lab and Diagnostics Result Diagram: 06/23/16 0455 06/23/16 0455 Assessment & Plan Ms. Ornelas is an unfortunate, morbidly obese, 55-year-old female with a complex medical history including seizure disorder, restless leg syndrome, high insulin requirement diabetes with complications of neuropathy and foot drop, chronic respiratory failure secondary to COPD, congestive heart failure, bipolar disorder, and by nasal hemianopsia, is here on return transfer from [facility] for workup of CVA with associated ground-level fall and resultant nasal fractures. Hospital day 1 acute, active Left-sided weakness, loss of facial sensation, and intermittent apraxia and aphasia, acute, present on admission. This was the diagnosis carried prior to transfer to [facility] for continued workup. Recent workup by [place] was unremarkable for evidence of CVA; imaging did not reveal any etiology for symptoms - spoked to , no further recommendation for w/u and tx. -will consider psychiatric consultation, primary Psychiatry: Dr.Vida Lyle in [place] -patient greatly benefits from PT/OT given deconditioned state. -primidone resumed for central tremors Constipation, chronicity unknown, present on admission. Under evaluation - No pain with examination at time of admission; patient has not mobilized significantly - Miralax scheduled - Reported to have received suppository prior to transport - Consider abd XR; then enema(s) if no improvement/evidence SBO chronic, stable, resolved Altered mental status, chronicity unknown. Patient was intermittently somnolent and appropriately responsive for different providers and caretakers. ABG was ordered considering patient's body habitus and unknown medication administration during EMS transport. Patient was in no acute distress at time of evaluation and denied any symptoms of fever, chills, shortness of breath, cough - today pt remained alert and oriented, MS seems at baseline, - Avoidance of sedatives, continue to monitor Insulin-dependent diabetes mellitus, chronic. Uncontrolled - A1c 06/2016: 13.5 - Record from [facility] indicates glargine 30 units nightly plus correctional - 10 units glargine administered night of admission - Medium dose correctional scale in place - Adjust as needed Nasal fracture status post ground level fall, acute, present on admission. Presumed stable - Conservative management/supportive care Suspected obesity hypoventilation/KENAN on CPAP therapy, chronic. Presumed stable - Patient has own CPAP for use COPD. Presumed stable - Duonebs QIDWA + accunebs q2h prn History of seizures, chronic. Presumed stable - Resumed Topamax and Lamictal at time of admission based on doses in [facility] report - Med rec needs to be completed, with verification Medication reconciliation will need to be completed in the morning. Patient did not request any nighttime medications PRN: Fever/pain/bowel/antinausea GI: Not indicated DVT: Heparin every 8 Diet: Diabetic heart based on bedside swallow eval CODE STATUS: Full code Patient status:likely tomorrow after PT eval home vs SNF, likely home given improvement of sx. GI Prophylaxis: Not indicated VTE Prophylaxis: Sub-Q Heparin (Unfractionated) Resuscitation Status: CPR: Attempt Resuscitation Time spent 35min Lara Naranjo MD Jun 23, 2016 15:01
[2016-06-23] MEDS ORDERED: TOPI50TA88 PO (15:20)
--- NOTE | 2016-06-23 15:30 | PCM.DIMED ---
Discharge Instructions Date of Service Jun 23, 2016 Dates of Hospitalization Jun 21, 2016 at 20:14 Discharge Diagnosis Discharge Diagnosis Left-sided weakness, loss of facial sensation, and intermittent apraxia and aphasia, unclear etiology, probable due to underlying psychiatric disease Diet No restrictions Activity No restrictions Patient Instructions You were hospitalized with symptoms of stroke, underwent work ups, which didn't show signs of stroke. Please follow up with your primary doctor and neurologist. Please titrate up your Primidone as scheduled 100mg then 150mg week by week, Follow-up Provider: Loretta Nguyen MD Follow-up with PCP in: 4 weeks Provider: Kevin Mitchell MD Follow-up in: 2 weeks Lara Naranjo MD Jun 23, 2016 15:30
[2016-06-23 16:21] VITALS: PULSE 101; RESP 20; O2SAT 95
--- NOTE | 2016-06-23 17:12 | NUR ---
DISCHARGE Pt dc'd home at 1700, assisted off unit in w/c accompanied by family and [employer]. Vital signs stable, denies any pain and in no apparent distress. IV dc'd intact, all belongings/medications returned. All instructions for diet, activity, medications and prescriptions and follow up reviewed with patient who reports understanding.
--- NOTE | 2016-06-24 23:29 | PCM.DC.MED ---
Discharge Summary Date of Service Jun 23, 2016 Dates of Hospitalization Date of Hospital Admission Jun 21, 2016 at 20:14 Date of Discharge: Jun 23, 2016 Providers: Admitting Physician: Conner Salas MD Primary Care Physician: Kevin Mitchell MD Attending Physician: Conner Salas MD Diagnosis at Time of Discharge Diagnosis at Time of Discharge acute problems Left-sided weakness, loss of facial sensation, and intermittent apraxia and aphasia, unclear etiology, probable due to underlying psychiatric disease chronic problems Insulin-dependent diabetes mellitus, Nasal fracture status post ground level fall, Suspected obesity hypoventilation/KENAN on CPAP therapy COPD. History of seizures Consultations Brief History HPI obtained by 06/21 Ms. Ornelas is an unfortunate, morbidly obese, 55-year-old female with a complex medical history including seizure disorder, restless leg syndrome, high insulin requirement diabetes with complications of neuropathy and foot drop, chronic respiratory failure secondary to COPD, congestive heart failure, bipolar disorder, and by nasal hemianopsia, is here on return transfer from [facility] for workup of CVA with associated ground-level fall and resultant nasal fractures. Hospital day 1 Patient was transferred from [facility] to [facility] on 06/18/16 for workup of CVA. During the initial admission here at our facility, MR brain was unable to be completed secondary to patient's body habitus and extreme claustrophobia. At that time, it was recommended she be transferred out to complete the necessary studies. At [facility], neurology consultation completed, with appropriate imaging. reports indicate that patient's exams revealed superimposed psychophysiologic overlay making her exams unreliable, and it was concluded that her symptoms were unlikely related to stroke. Imaging was negative for acute infarct or MS. Brief details of imaging as noted below: --- MR cervical spine with and without contrast 06/20: Small 0.4 cm longitudinal linear T2 hyperintensity of left paracentral cord at C6, but no enhancement; previous posterior bilateral fusion C4-T2 with posterior decompression C5-C7; moderate central canal stenosis C3-C4 from disc osteophyte complex and facet arthropathy with ligamentum flavum thickening; no additional areas of central canal or significant foraminal stenosis noted --- MR brain with and without contrast with MR angiogram of head 06/20: No evidence of infarct or other acute abnormality; no intracranial stenosis or aneurysm --- EEG 04/21: Normal wake/sleep EEG: No clinical or electrographic seizures occurred and no underlying epileptiform abnormalities or focal changes were noted Dr. Oates accepted patient as return transfer 06/21/2016. Prior to transport from [facility], temp 36.1, BP 117/66, heart rate 96, respiratory rate 18, 93% on 3 L nasal cannula; no bowel movements reported; discharge physical exam from [facility] revealed patient was alert and oriented by 4, anxious, cooperative, yet forgetful; it is reported that her left-sided numbness and gait and parents were improved. On arrival, patient appeared to be somewhat somnolent, but arousable to verbal stimulation. She states that she is extremely fatigued. When asked about her experience at [facility], she became very tearful. She is able to recall that her workup was negative, and caused great upset and grief for her, because she felt as if no one believed her and that she was "faking it." She was not open to further conversation, but did confirm that she was not currently experiencing any pain, shortness of breath, nausea, vomiting, or chest pain. She also denies any symptoms of cough or respiratory-like illnesses. She did confirm that she has not had a bowel movement in the recent days. She notes that her restless legs were increasing in severity at time of this evaluation, because she was upset. She states she wears a CPAP at home, and has brought the device with her. She is unsure what happened to her, and she wishes that there was an answer. Initial vitals here included temperature 36.6, pulse 85, respiratory rate 20, blood pressure 108/65, 96% on 1 L nasal cannula. She was transferred to the floor in stable condition. Hospital Course Ms. Ornelas is an unfortunate, morbidly obese, 55-year-old female with a complex medical history including seizure disorder, restless leg syndrome, high insulin requirement diabetes with complications of neuropathy and foot drop, chronic respiratory failure secondary to COPD, congestive heart failure, bipolar disorder, and by nasal hemianopsia, is here on return transfer from [facility] for workup of CVA with associated ground-level fall and resultant nasal fractures. Hospital day 1 acute problems Left-sided weakness, loss of facial sensation, and intermittent apraxia and aphasia, acute, present on admission. This was the diagnosis carried prior to transfer to [facility] for continued workup.All of the workup by [facility] was unremarkable for evidence of CVA; imaging did not reveal any etiology for symptoms. EEG was negative. As per , no further recommendation for w/u and tx. Patient's monitor symptoms resolved on the following day, which strongly suggestive of somatization given extensive psychiatric dz. Patient was able ambulate and PT agreed that patient can be discharged to home. Patient was clinically stable, didn't show any focal deficit upon d/c. chronic problems Insulin-dependent diabetes mellitus, chronic. Uncontrolled. A1c 06/2016: 13.5. continued home regimen. Nasal fracture status post ground level fall, acute, present on admission. Presumed stable Suspected obesity hypoventilation/KENAN on CPAP therapy, chronic. Presumed stable COPD. Presumed stable History of seizures, chronic. Exam Vital Signs (Last) Date Time Temp Pulse Resp B/P Pulse Ox O2 Delivery O2 Flow Rate FiO2 06/23/16 17:19 Nasal Cannula 1.00 06/23/16 16:21 101 20 95 06/23/16 13:18 37.1 133/71 Exam obese lady, mildly anxious, resting tremors throughout no JVD, MMM, no LAD RRR, nl s1, s2 no mrg CTAB, no w,c S,ND,NT,normoactive BS+ warm, no edema, pulses 2/2 neuro: CN2-12 grossly intact, motor able to lift left arm above the shoulder level, against over resistance Test 06/22/16 04:45 06/22/16 13:13 06/23/16 04:55 Procalcitonin 0.10ng/mL (0.00-0.08) Hold Urine Received (Received) White Blood Count 6.6th/mm3 (3.8-10.1) Red Blood Count 3.48mil/mm3 (3.90-5.20) Hemoglobin 10.7g/dL (12.0-15.6) Hematocrit 33.8% (35.0-46.0) Mean Corpuscular Volume 97.1fL (81-100) Mean Corpuscular Hemoglobin 30.7pg (27.0-35.0) Mean Corpuscular Hemoglobin Concent 31.7% (32.0-37.0) Red Cell Distribution Width 15.8% (12.3-15.4) Platelet Count 215bil/L (150-400) Neutrophils (%) (Auto) 66.4% (40-74) Lymphocytes (%) (Auto) 21.2% (14-46) Monocytes (%) (Auto) 8.9% (4-12) Eosinophils (%) (Auto) 2.7% (0-5) Basophils (%) (Auto) 0.2% (0-3) Sodium Level 139mEq/L (134-144) Potassium Level 3.8mEq/L (3.5-5.2) Chloride Level 103mEq/L (97-108) Carbon Dioxide Level 22mmol/L (18-29) Blood Urea Nitrogen 13mg/dL (6-24) Creatinine 0.94mg/dL (0.57-1.00) Estimat Glomerular Filtration Rate 89mL/min (>59) Glucose Level 180mg/dL (60-99) Calcium Level 8.8mg/dL (8.5-10.1) Phosphorus Level 2.6mg/dL (2.5-4.9) Magnesium Level 2.2mg/dL (1.6-2.6) Total Bilirubin 0.6mg/dL (0.0-1.2) Aspartate Amino Transf (AST/SGOT) 16U/L (0-50) Alanine Aminotransferase (ALT/SGPT) 26U/L (0-32) Alkaline Phosphatase 67U/L (25-150) Total Protein 6.1g/dL (6.4-8.4) Albumin 4.2g/dL (3.4-5.0) Discharge Medications Discharge Medications Amphet Asp/Amphet/D-Amphet (Adderall) 30 Mg Tablet 30 MG PO BIDWM (Reported) Ascorbate Calcium (Vitamin C) 500 Mg Tablet 500 MG PO TIDWM (Reported) Aspirin (Aspirin) 325 Mg Tablet 325 MG PO DAILY Prescribed by: MARIA ELENA VILLA DO Atorvastatin (Lipitor) 40 Mg Tablet 40 MG PO DAILY Prescribed by: MARIA ELENA VILLA DO Budesonide/Formoterol 160-4.5 mcg Inh (Symbicort 160-4.5 mcg Inh) 120 Puff Inhaler 2 PUFF INHALATION BID (Reported) Calcium Carbonate (Calcium Carbonate) 600 Mg Tablet 600 MG PO DAILYWM (Reported ) Chromium Picolinate (Chromium Picolinate) 200 Mcg Capsule 200 MCG PO QAM ( Reported) Duloxetine (Cymbalta) 60 Mg Capsule.dr 60 MG PO QAM (Reported) Fluoxetine (Prozac) 40 Mg Capsule 40 MG PO QAM (Reported) Furosemide (Furosemide) 80 Mg Tab 120 MG PO AM (Reported) Hydrochlorothiazide (Hydrochlorothiazide) 50 Mg Tablet 50 MG PO QAM (Reported) Insulin Regular, Human (HUMulin-R U-500 Insulin Vial) 500 Unit/1 Ml Vial 0.37 ML SQ DAILYWM (Reported) BREAKFAST Insulin Regular, Human (HUMulin-R U-500 Insulin Vial) 500 Unit/1 Ml Vial 0.27 ML SUBQ DAILYWL (Reported) LUNCH Insulin Regular, Human (HUMulin-R U-500 Insulin Vial) 500 Unit/1 Ml Vial 0.17 ML SUBQ DAILYWD (Reported) DINNER Ipratropium/Albuterol Sulfate (Iprat-Albut 0.5-3(2.5) mg/3 mL Inhalant Soln) 3 Ml Ampul.neb 3 ML IH TID (Reported) Lamotrigine (Lamotrigine) 200 Mg Tablet 400 MG PO BID (Reported) Lisdexamfetamine Dimesylate (Vyvanse) 70 Mg Capsule 70 MG PO QAM (Reported) Loratadine (Claritin) 10 Mg Capsule 10 MG PO QAM (Reported) Multivit with Calcium,Iron,Min (Therapeutic M) 1 Each Tablet 1 EACH PO QAM ( Reported) Omeprazole Magnesium (Prilosec Otc) 20 Mg Tablet.dr 40 MG PO BIDWM (Reported) Potassium Chloride Powder (Klor-Con Powder) 20 Meq Packet 40 MEQ PO QAM ( Reported) 40 MEQ IN AM, 20 MEQ AT NOON, 20 MEQ IN EVENING DISSOLVE CONTENTS OF ONE PACKET IN FULL GLASS OF WATER AND DRINK ONCE DAILY. Prednisone (PredniSONE) 20 Mg Tablet 10-40 MG PO DAILYWM (Reported) Pregabalin (Lyrica) 75 Mg Capsule 75 MG PO BIDWM (Reported) 75 MG IN AM & NOON, 150 MG AT HS Pregabalin (Lyrica) 75 Mg Capsule 150 MG PO HS (Reported) 75 MG IN AM & NOON, 150 MG AT HS Primidone (Primidone) 50 Mg Tablet 100 MG PO HS (Reported) Ropinirole (Ropinirole) 4 Mg Tablet 4 MG PO BID (Reported) Simvastatin (Simvastatin) 80 Mg Tablet 80 MG PO HS (Reported) Tiotropium [place] (Spiriva) 18 Mcg Cap.w.dev 18 MCG IH HS (Reported) Topiramate (Topiramate) 50 Mg Tablet 100 MG PO BID Prescribed by: LARA RESTREPO MD Zinc Gluconate (Zinc) 50 Mg Tablet 50 MG PO QAM (Reported) As needed Albuterol HFA (Proair HFA) 8.5 Gm Hfa.aer.ad 2 PUFFS IH Q4H PRN PRN For Shortness of Breath (Reported) Albuterol Neb Soln (Albuterol Neb Soln) 2.5 Mg/3 Ml Vial.neb 2.5 MG IH Q2 PRN PRN For Shortness of Breath (Reported) Benzonatate (Benzonatate) 200 Mg Capsule 200 MG PO Q8H PRN PRN For Cough ( Reported) Fluticasone Propionate (Fluticasone Propionate Nasal) 16 Gm [place].susp 2 SPRAY NS HS PRN PRN allergy symptoms (Reported) Guaifenesin/Codeine Phosphate (Codeine-Guaifen 10-100 mg/5 ml) 120 Ml Liquid 15 ML PO QID PRN PRN For Cough Prescribed by: BRIA SUTTON MD Insulin Lispro (HumaLOG U100 Insulin Pen) 100 Unit/1 Ml Insuln.pen 5-30 UNIT SUBQ ACHS PRN PRN HYPERGLYCEMIA (Reported) sliding scale Naphazoline HCl/Pheniramine (Allergy Eye Drops) 0.025 %-0.3 % Drops 2 DROP BOTH_ EYES BID PRN PRN For Eye Irritation (Reported) Nystatin (Nystatin) 60 Applic/15 Gm Cream 1 APPLIC TOP BID PRN PRN RASH ( Reported) Oxymetazoline HCl (Nasal [place] Sinus) 30 Ml [place] 1 SPRAY NS BID PRN PRN For Congestion (Reported) Propylene Glycol/Peg 400/Pf (Systane 0.3-0.4% Eye Drops) 1 Each [place] 2 DROP BOTH_EYES Q2H PRN PRN DRY EYES (Reported) Followup Plan Disposition: home Discharge Diet: No restrictions Discharge Activity: No restrictions Patient Instructions You were hospitalized with symptoms of stroke, underwent work ups, which didn't show signs of stroke. Please follow up with your primary doctor and neurologist. Please titrate up your Primidone as scheduled 100mg then 150mg week by week, Follow-up Provider: Loretta Nguyen MD Follow-up with PCP in: 4 weeks Provider: Kevin Mitchell MD Follow-up in: 2 weeks Time spent 65min Lara Restrepo MD Jun 24, 2016 23:15
== END 2016-06-23 16:55 | disposition home or self-care (01) | DRG 886 ==
LOC: MPC 20:14 → UNDODISIN 06-23 15:52
PROVIDERS: ADMIT Hospitalist; ATTEND Hospitalist
DX: R48.2 Apraxia (principal); E66.2 Morbid (severe) obesity with alveolar hypoventilation; R47.01 Aphasia; J96.10 Chronic respiratory failure, unspecified whether with hypoxia or hypercapnia; R53.1 Weakness; Z68.39 Body mass index [BMI] 39.0-39.9, adult; G25.81 Restless legs syndrome; K59.00 Constipation, unspecified; E11.65 Type 2 diabetes mellitus with hyperglycemia; G40.909 Epilepsy, unspecified, not intractable, without status epilepticus; J44.9 Chronic obstructive pulmonary disease, unspecified; F40.240 Claustrophobia; Z53.09 Procedure and treatment not carried out because of other contraindication; H53.47 Heteronymous bilateral field defects; E11.43 Type 2 diabetes mellitus with diabetic autonomic (poly)neuropathy; G47.33 Obstructive sleep apnea (adult) (pediatric); Z79.51 Long term (current) use of inhaled steroids; Z79.4 Long term (current) use of insulin; Z79.82 Long term (current) use of aspirin

== ENCOUNTER 2016-07-23 14:44 | Inpatient (IN) | payer OTHER ==
[~2016-07-23] VITALS: Ht 172.7 cm; Wt 108.1 kg
[~2016-07-23 14:44] MED LIST changes: -ASPI81TA3 PO; -POTA20PA12 PO
[2016-07-23 15:00] VITALS: BP 150/56; PULSE 89; RESP 20; O2SAT 93
[2016-07-23] MEDS ORDERED: 0.9% Sodium Chloride 1,000 ML IV ONE (15:14)
--- NOTE | 2016-07-23 15:17 | ED.REPORT ---
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 She presents today because of several episodes of bladder incontinence and she has been unable to lift herself from her chair due to weakness. Patient required the assistance of her to ambulate with her walker. Her symptoms initially began after vomiting 3 nights ago and her last BM was approx. 1 month ago. Associated symptoms include lower abdominal pain, "brown" urine, persistent cough and chest pain secondary to cough. She denies any diarrhea, fever, or dysuria. Patient has been taking medication as directed except the Lasix due to decreased in fluid intake. Patient has had 3 recent admissions with extensive workup for COPD exacerbation and CVA x2. Patient was transferred from [facility] to [facility] on 06/18/16 for workup of CVA. This workup was negative for objective findings of stroke. Nursing Notes Stated Complaint: GENERAL WEAKNESS Chief Complaint: General Complaint Nursing Notes Reviewed: Yes Allergies: Coded Allergies: Contrast Media (Verified Allergy, Severe, Anaphylaxis, 07/23/16) Sulfa (Sulfonamide Antibiotics) (Verified Allergy, Severe, Rash,Itching, SOB, 07/23/16) iodine (Verified Allergy, Severe, UNSPEC, 07/23/16) topical iodine causes rash ketorolac (Verified Allergy, Severe, 07/23/16) paranoia per pt meperidine (Verified Allergy, Severe, UNSPEC, 07/23/16) paranoia and asthma povidone (Verified Allergy, Severe, 07/23/16) cefazolin sodium (Verified Allergy, Intermediate, Rash,Itching,SOB, ) shellfish derived (Verified Allergy, Unknown, 07/23/16) asthma, rash from food tromethamine (Verified Allergy, Unknown, 07/23/16) Uncoded Allergies: FRAGRANCES (Allergy, Unknown, 04/17/06) SEAFOOD (Allergy, Unknown, 07/10/03) Scheduled Aspirin (Aspirin) 325 Mg Tablet 325 MG PO DAILY Budesonide/Formoterol 160-4.5 mcg Inh (Symbicort 160-4.5 mcg Inh) 120 Puff Inhaler 2 PUFF INHALATION BID Dextroamphetamine/Amphetamine (Amphetamine Mixed Salts) 30 Mg Tablet 30 MG PO BID Duloxetine (Duloxetine) 60 Mg Capsule.dr 60 MG PO DAILY Fenofibrate Nanocrystallized (Fenofibrate) 48 Mg Tablet 48 MG PO DAILY Fluoxetine (Fluoxetine) 40 Mg Capsule 40 MG PO DAILY Furosemide (Furosemide) 80 Mg Tab 120 MG PO AM Hydrochlorothiazide (Hydrochlorothiazide) 50 Mg Tablet 50 MG PO QAM Lamotrigine (Lamotrigine) 200 Mg Tablet 400 MG PO BID Lisdexamfetamine Dimesylate (Vyvanse) 70 Mg Capsule 70 MG PO QAM Loratadine (Claritin) 10 Mg Capsule 10 MG PO QAM Metolazone (Metolazone) 5 Mg Tablet 5 MG PO friday and friday Multivit with Calcium,Iron,Min (Therapeutic M) 1 Each Tablet 1 EACH PO QAM Pantoprazole DR (Pantoprazole DR) 40 Mg Tablet.dr 40 MG PO BID Potassium Chloride (Potassium Chloride Powder) 20 Meq Packet 40 MEQ PO QAM Potassium Chloride (Potassium Chloride Powder) 20 Meq Packet 20 MEQ PO DAILYWL DISSOLVE CONTENTS OF PACKET IN FULL GLASS OF WATER AND DRING TWO TIMES DAILY. TAKE WITH FOOD Potassium Chloride (Potassium Chloride Powder) 20 Meq Packet 40 MEQ PO DAILYWD DISSOVE CONTENTS OF PACKET IN FULL GLASS OF WATER AND DRINK ONCE DAILY. TAKE WITH FOOD Pregabalin (Lyrica) 75 Mg Capsule 150 MG PO BID Primidone (Primidone) 50 Mg Tablet 150 MG PO HS Ropinirole (Ropinirole) 4 Mg Tablet 4 MG PO BID Simvastatin (Simvastatin) 80 Mg Tablet 80 MG PO HS Tiotropium [place] (Spiriva) 18 Mcg Cap.w.dev 18 MCG IH HS Topiramate (Topamax) 50 Mg Tablet 50 MG PO BID Scheduled PRN Albuterol HFA (Proair HFA) 8.5 Gm Hfa.aer.ad 2 PUFFS IH Q4H PRN PRN For Shortness of Breath Albuterol Neb Soln (Albuterol Neb Soln) 2.5 Mg/3 Ml Vial.neb 2.5 MG IH DAILY PRN PRN For Shortness of Breath Azelastine HCl (Azelastine HCl) 137 Mcg/0.137 Ml [place].pump 2 SPRAY NASAL BID PRN PRN prn Fluticasone Propionate (Fluticasone Propionate Nasal) 16 Gm [place].susp 2 SPRAY NS BID PRN PRN allergy symptoms Insulin Lispro (HumaLOG U100 Insulin Pen) 100 Unit/1 Ml Insuln.pen 5-20 UNIT SUBQ TIDWM PRN PRN sliding scale sliding scale Insulin Regular, Human (HUMulin-R U-500 Insulin Vial) 500 Unit/1 Ml Vial Unknown Dose SQ TIDWM PRN PRN sliding scale BREAKFAST Ipratropium/Albuterol Sulfate (Iprat-Albut 0.5-3(2.5) mg/3 mL Inhalant Soln) 3 Ml Ampul.neb 3 ML IH TID PRN PRN For Shortness of Breath General Time Seen by MD: 15:05 Chief Complaint Weakness Hx Obtained From: Patient Arrived By: Ambulance Sudden in Onset?: No Onset Occurred: 3 days ago Symptom Duration: Since onset Location: : Abdomen Quality: Painful Radiation: : Does not radiate Severity: Current: Moderate Severity: Maximum: Moderate Associated with: Reports: Abdominal pain, Chest pain, Cough, Vomiting, Weakness , Denies: Fever Pertinent Negative: Pt denies other symptoms Recent Healthcare: Recent doctor visit, Recent hospitalization Past Medical History Past Medical History Notes: PCP: Dr. Esteban Mitchell SEVERE CONTRAST ALLERGY Past Medical History 1. Upper extremity DVT secondary to PICC line, treated with warfarin 2. Restless leg syndrome 3. Diabetic neuropathy 4. Diabetes mellitus 5. Asthma 6. COPD 7. CHF 8. GERD 9. Bilateral drop foot 10. osteoarthritis 11. Osteomyelitis 12. binasal hemianopsia 13. sleep apnea 14. Admit sepsis from diabetic foot June 2014 15. bipolar disorder 16. Review of seizure disorder 17. Hyperlipidemia Past Surgical History left knee left shoulder Right shoulder x2 laminectomy L4-L5 in 1994 Laminectomy L4-L5 in 2010 Laminectomy C5 C6 C6 09/07/2009, infusion later in 2009 Laminectomy T11-T12 in 2010 Jayce fundoplication 1995 Smoking History Never Smoker Social History Alcohol Use: "Social" Drug Use: Denies drug use Other Social History: , Local resident Ambulatory Status Independent Review of Systems No recent BM Full Review of Systems Constitutional: Reports: Weakness - generalized, Denies: Chills, Fever Respiratory: Reports: Non-productive cough Cardiovascular: Reports: Chest pain (secondary to cough) GI: Reports: Abdominal pain (lower), Vomiting, Denies: Diarrhea Female: Reports: Incontinence (Bladder) Neurologic: Reports: Weakness Complete sys rev & neg: except as marked. Physical Exam Vital Signs Vital Signs Date Time Temp Pulse Resp B/P Pulse Ox O2 Delivery O2 Flow Rate FiO2 07/23/16 17:09 101 23 120/46 95 Nasal Cannula 2.5 07/23/16 15:30 88 20 121/45 94 Nasal Cannula 2 07/23/16 15:00 37.0 89 20 150/56 93 Nasal Cannula 2 Initial VS: Reviewed Neck: Supple, Non-tender, Full range of motion Skin: Warm, Dry, No cyanosis Neurologic: Alert, Oriented, Nonfocal General/Constitutional: Awake, Alert Behavior: Positive: Anxious Appearance / Presentation: Positive: Obese, morbidly Head / Eyes: Atraumatic, Normocephalic, PERRL ENT: Atraumatic, Airway patent Mouth: Positive: Mucous membranes dry Respiratory / Chest: Atraumatic, Breath sounds = bilat, No respiratory distress Wheezing / Retractions: Positive: Wheeze insp/exp diffuse (Diffuse) Cardiovascular: Heart rate NL, Regular rhythm, Heart sounds NL, No gallop, No murmurs, No rubs Abdomen: Atraumatic, Soft Bowel Sounds / Distention: Positive: Bowel sounds tympanitic (High pitch bowel sounds), Distention moderate Upper Extremities Upper Extremity / MS: Atraumatic, Neurologic intact, Vascular intact Lower Extremity / Pelvis / MS: Atraumatic, Neurologic intact, Vascular intact Skin: Intact Rectum / Perineum: Atraumatic, Blood - occult heme - (Brown stool present) Interpretation & Diagnostics Lab Results Interpretation Result Diagram: 07/23/16 1450 07/23/16 1450 Test 07/23/16 14:50 07/23/16 15:10 White Blood Count 19.4th/mm3 (3.8-10.1) Red Blood Count 3.76mil/mm3 (3.90-5.20) Hemoglobin 11.4g/dL (12.0-15.6) Hematocrit 34.9% (35.0-46.0) Mean Corpuscular Volume 92.8fL (81-100) Mean Corpuscular Hemoglobin 30.3pg (27.0-35.0) Mean Corpuscular Hemoglobin Concent 32.7% (32.0-37.0) Red Cell Distribution Width 14.5% (12.3-15.4) Platelet Count 839bil/L (150-400) Neutrophils (%) (Auto) 79.6% (40-74) Lymphocytes (%) (Auto) 11.7% (14-46) Monocytes (%) (Auto) 7.0% (4-12) Eosinophils (%) (Auto) 0.8% (0-5) Basophils (%) (Auto) 0.2% (0-3) Hold Purple Top Tube Received (Received) Hold Blue Top Tube Received (Received) Urine Color Yellow (YELLOW) Urine Appearance Clear (CLEAR,HAZY) Urine pH 6.5 (5.0-8.0) Urine Specific [place] 1.010 (1.003-1.035) Urine Protein 30mg/dL (NEG,TRACE) Urine Glucose (UA) 500mg/dL (NEGATIVE) Urine Ketones Tracemg/dL (NEGATIVE) Urine Occult Blood Negative (NEGATIVE) Urine Nitrite Negative (NEGATIVE) Urine Bilirubin Negative (NEGATIVE) Urine Urobilinogen Normalmg/dL (NORMAL) Urine Leukocyte Esterase Negative (NEGATIVE) Urine RBC 0-2/hpf (0-2) Urine WBC 0-5/hpf (0-5) Urine Epithelial Cells Moderate/hpf (NONE-MOD) Urine Crystals None seen (NONE SEEN) Urine Bacteria None/hpf (NONE-FEW) Urine Hyaline Casts None/lpf (NONE) Urine Granular Casts None seen (NONE SEEN) Urine Waxy Casts None seen (NONE SEEN) Urine Red Blood Cell Casts None seen (NONE SEEN) Urine White Blood Cell Casts None seen (NONE SEEN) Urine Mucus None seen (None Seen) Urine Trichomonas None seen (NONE SEEN) Urine Yeast None (NONE SEEN) Urinalysis Comment None Urine Culture Reflexed Not indicated Sodium Level 131mEq/L (134-144) Potassium Level 2.6mEq/L (3.5-5.2) Chloride Level 77mEq/L (97-108) Carbon Dioxide Level 35mmol/L (18-29) Blood Urea Nitrogen 25mg/dL (6-24) Creatinine 1.02mg/dL (0.57-1.00) Estimat Glomerular Filtration Rate 81mL/min (>59) Glucose Level 167mg/dL (60-99) Calcium Level 9.4mg/dL (8.5-10.1) Magnesium Level 2.4mg/dL (1.6-2.6) Total Bilirubin 0.4mg/dL (0.0-1.2) Aspartate Amino Transf (AST/SGOT) 26U/L (0-50) Alanine Aminotransferase (ALT/SGPT) 23U/L (0-32) Alkaline Phosphatase 126U/L (25-150) Troponin T < 0.010ug/L (0.0-0.011) Total Protein 7.5g/dL (6.4-8.4) Albumin 3.1g/dL (3.4-5.0) Hold [place] Top Tube Received (Received) Hold [place] Top Tube Received (Received) Hold Urine Received (Received) ECG Interpretation ECG Interpretation: RSA Rate 88 Time: 13:58 Interpreted by: ED physician Abnormal T wave or ST segment: Non-specific ST changes Rhythm / Conduction: QTc prolongation X-Ray Chest Interpretation Chest Xray Interpretation: IMPRESSION: Right basilar opacity suggestive of pneumonia. Aspiration pneumonia cannot be excluded. Recommend interval followup to resolution and exclude presence of underlying mass lesion. Dictated by: Jackie Wing M.D. on 07/23/2016 at 16:42 Interpretation / Wet Read by: Interpret - Radiologist X-Ray Abdominal Interpretation IMPRESSION: Moderate scattered stool suggestive of mild constipation. No traction. Dictated by: Jackie Wing M.D. on 07/23/2016 at 16:42 Re-Eval/Medical Decision Med Decision/Clinical Course Presented with generalized weakness and inability to ambulate. Hypokalemia noted, KCL 40 and then 20 PO. Pneumonia treated with Levaquin 750. will admit to hospitalist. Time of Eval: 16:55 Re-Evaluation/Progress Note: Patient is resting comfortably. She is informed of her lab results, X-ray results and EKG results. Time of Eval: 17:37 Patient Status: Condition improved Re-Evaluation/Progress Note: Patient is informed of her remaining results and the plan to admit. She understands and agrees with the plan. Consultation : Referral / Consult Name: Mina Mendoza MD Consulted With: Hospitalist Call Returned at: 17:58 [employer]float Cryptologic Manager: Will see patient, Agrees with eval, Agrees with plan, Accepts admit Counseled Regarding: Diagnosis, Lab results, Need for admission Discharge & Departure Primary Impression: Pneumonia Pneumonia type: due to unspecified organism Laterality: right Lung location : lower lobe of lung Qualified Code: J18.1 - Lobar pneumonia, unspecified organism Additional Impressions: Hypokalemia Generalized weakness Urinary tract infection Urinary tract infection type: site unspecified Hematuria presence: without hematuria Qualified Code: N39.0 - Urinary tract infection, site not specified Disposition: ADMITTED TO HOSPITAL Discharge Condition All VS Reviewed: Yes Condition: Stable Referrals: Kevin Mitchell MD (PCP) Scribe Attestation Portions of this note were transcribed by Shell Lux. Dr. Kalyn Mueller personally performed the history, physical exam and medical decision-making; I reviewed and confirmed the accuracy of the information in the transcribed note. Signed by: Mirtha Doherty, 07/23/16 1750. copies to: Kevin Mitchell MD, Donald L MD July 23, 2016 15:17 SHELL LUX July 23, 2016 15:25 Scribe Attestation Portions of this note were transcribed by Shell Lux. Dr. Kalyn Mueller personally performed the history, physical exam and medical decision-making; I reviewed and confirmed the accuracy of the information in the transcribed note. Signed by: Mirtha Doherty, 07/23/16 [id number]. copies to: Kevin Mitchell MD, Donald L MD July 23, 2016 15:17 SHELL LUX July 23, 2016 15:25
[2016-07-23 15:26] LABS: BASOPHILS % (AUTO) 0.2 % (0-3); EOSINOPHILS % (AUTO) 0.8 % (0-5); Mean Corpuscular Hemoglobin 30.3 pg (27.0-35.0); Mean Corpuscular Volume 92.8 fL (81-100); NEUTROPHILS % (AUTO) 79.6 % (40-74); Platelet Count 839 bil/L (150-400)
[2016-07-23 15:30] VITALS: BP 121/45; PULSE 88; RESP 20; O2SAT 94
[2016-07-23 15:36] LABS: APPEARANCE,URINE CLEAR (CLEAR,HAZY); COLOR,URINE YELLOW (YELLOW); PH,URINE 6.5 (5.0-8.0)
[2016-07-23 15:37] LABS: OCCULT BLOOD,URINE NEGATIVE (NEGATIVE); UROBILINOGEN,URINE NORMAL (NORMAL)
[2016-07-23 15:40] LABS: TROPONIN T < 0.010 ug/L (0.0-0.011)
[2016-07-23 15:49] LABS: Magnesium 2.4 mg/dL (1.6-2.6)
[2016-07-23] MEDS ORDERED: Potassium Chloride 20 mEq/15 mL 15mL Oral Soln PO ONE ×2 (15:55→17:00)
[2016-07-23] MEDS ORDERED: Ondansetron 2 mg/mL 2 mL Inj IVPUSH PRN ×3 (15:55→18:20)
--- NOTE | 2016-07-23 16:44 | DRSVH ---
PROCEDURE: X-RAY ABDOMEN, ONE VIEW ([id number]) INDICATIONS: constipation TECHNIQUE: One view of the abdomen acquired. COMPARISON: None. FINDINGS: Surgical changes and devices: None. Bowel: Bowel gas pattern is normal. Moderate scattered stool. Soft tissues: No suspicious abdominal calcifications. Visualized solid organ contours appear normal in size. Bones: No suspicious bony lesions. IMPRESSION: Moderate scattered stool suggestive of mild constipation. No traction. Dictated by: Jackie Wing M.D. on 07/23/2016 at 16:42 Approved by: Jackie Wing M.D. on 07/23/2016 at 16:43
--- NOTE | 2016-07-23 16:44 | DRSVH ---
PROCEDURE: X-RAY CHEST ONE VIEW, PORTABLE ([id number]) INDICATIONS: general weakness TECHNIQUE: One view of the chest was acquired. COMPARISON: [facility], CR, XR CHEST 1VW (PORTABLE), 06/09/2016, 3:13. FINDINGS: Surgical changes and devices: Partially visualized cervical fixation screws as well as upper quadrant clips. Lungs and pleura: Masslike patchy opacity is present within the right base. This is new compared to . Mediastinum: Mediastinal contours appear normal. Heart size is normal. Bones and chest wall: No suspicious bony lesions. Overlying soft tissues appear unremarkable. IMPRESSION: Right basilar opacity suggestive of pneumonia. Aspiration pneumonia cannot be excluded. R ecommend interval followup to resolution and exclude presence of underlying mass lesion. Dictated by: Jackie Wing M.D. on 07/23/2016 at 16:42 Approved by: Jackie Wing M.D. on 07/23/2016 at 16:42
[2016-07-23] MEDS ORDERED: levoFLOXacin Inj 750 MG in IV Premix 1 EACH IV ONE (17:00)
[2016-07-23 17:09] VITALS: BP 120/46; PULSE 101; RESP 23; O2SAT 95
[2016-07-23] MEDS ORDERED: AZEL137S11 NASAL (17:58)
[2016-07-23] MEDS ORDERED: FLUO40CA PO (17:58)
[2016-07-23] MEDS ORDERED: PANT40TA3 PO (17:58)
[2016-07-23] MEDS ORDERED: DEXT30TA12 PO (17:58)
[2016-07-23] MEDS ORDERED: POTA20PA12 PO ×3 (17:58)
[2016-07-23] MEDS ORDERED: DULO60CA61 PO (17:58)
[2016-07-23] MEDS ORDERED: FENO48TA4 PO (17:58)
[2016-07-23] MEDS ORDERED: METO5TAB5 PO (17:58)
[2016-07-23] MEDS ORDERED: TOPI50TA32 PO (17:58)
[2016-07-23] MEDS ORDERED: Alum-Mag Hydrox-Simeth 30 mL Suspension PO PRN ×2 (18:15→18:20)
[2016-07-23] MEDS ORDERED: Polyethylene Glycol (PEG) 17 Gm Powder PO PRN (18:20)
[2016-07-23 19:20] VITALS: PULSE 90
[2016-07-23 19:39] VITALS: BP 119/41; PULSE 91; RESP 20; O2SAT 91
--- NOTE | 2016-07-23 20:51 | PCM.HPMED ---
Subjective Date of Service July 23, 2016 Primary Provider: Admitting Physician: Mina Mendoza MD Primary Care Physician: Kevin Mitchell MD Attending Physician: Mina Mendoza MD Admit Status: From the Emergency Department, Full Admit, Remote Telemetry Chief Complaint: Generalized weakness History of Present Illness: Yolis Ornelas is a 55 year old morbidly obese female with a complex medical history including recent CVA x2, chronic respiratory failure secondary to COPD, obstructive asthma, CHF, type II diabetes mellitus, diabetic neuropathy, previous upper extremity DVT s/p PICC line on Warfarin, seizure disorder, GERD and bipolar disorder who presents to [facility] emergency department via EMS complaining of generalized weakness that began 3 days ago. She presents today because of several episodes of bladder incontinence and she has been unable to lift herself from her chair due to weakness. Patient required the assistance of her to ambulate with her walker. Her symptoms initially began after vomiting 3 nights ago and her last BM was approx. 1 month ago. Associated symptoms include lower abdominal pain, "brown" urine, persistent cough and chest pain secondary to cough. She denies any diarrhea, fever, or dysuria. Patient has been taking medication as directed except the Lasix due to decreased in fluid intake. Patient has had 3 recent admissions with extensive workup for COPD exacerbation and CVA x2. Patient was transferred from [facility] to [facility] on 06/18/16 for workup of CVA. Review of Systems: Pertinent positives as noted in HPI. All other systems were reviewed and are negative Allergies Coded Allergies: Contrast Media (Verified Allergy, Severe, Anaphylaxis, 07/23/16) Sulfa (Sulfonamide Antibiotics) (Verified Allergy, Severe, Rash,Itching, SOB, 07/23/16) iodine (Verified Allergy, Severe, UNSPEC, 07/23/16) topical iodine causes rash ketorolac (Verified Allergy, Severe, 07/23/16) paranoia per pt meperidine (Verified Allergy, Severe, UNSPEC, 07/23/16) paranoia and asthma povidone (Verified Allergy, Severe, 07/23/16) cefazolin sodium (Verified Allergy, Intermediate, Rash,Itching,SOB, ) shellfish derived (Verified Allergy, Unknown, 07/23/16) asthma, rash from food tromethamine (Verified Allergy, Unknown, 07/23/16) Uncoded Allergies: FRAGRANCES (Allergy, Unknown, 04/17/06) SEAFOOD (Allergy, Unknown, 07/10/03) Home Medications From [facility], not yet confirmed Yolis OrnelasJay [id number] 1960 07/09/2016 11:40 AM 03/09 Adderall 30 mg tablet take 1 tablet (30MG) by oral route two times daily ALBUTEROL 0.5% NEB HI-T INHALE 1ML IN NEBULIZER DAILY NEEDED. aspirin 325 mg tablet take 1 tablet by oral route every day ATROVENT 0.02% nebulizer mix with albuterol azelastine 137 mcg (0.1 %) nasal spray aerosol spray 2 spray by intranasal route 2 times every day in each nostril B-D UF SHORT.5C- SYN B-D USE TO INJECT INSULIN 5 TIMES A DAY codeine 10 mg-guaifenesin 100 mg/5 mL oral liquid take 15 milliliter by oral route every 6 hours as needed for cough Cymbalta 60 mg capsule,delayed release take 1 capsule (60MG) by oral route every day fenofibrate nanocrystallized 48 mg tablet take 1 tablet by oral route every day fluoxetine 40 mg capsule take 1 capsule by oral route every day in the morning Humalog KwikPen 100 unit/mL subcutaneous INJECT 5 TO 20 UNITS SUBCUTANEOUSLY IF BLOOD SUGAR IS OVER 300 FOUR TIMES DAILY. HUMULIN R 500U/ML VIA LILL INJECT 150 UNITS SUBCUTANEOUSLY TWICE DAILY. HYDROCHLOROT 50MG TAB ACCO TAKE 1 TABLET BY MOUTH DAILY. IPRATROPIUM .02% INHSOL ACTA INHALE ONE VIAL THREE TIMES DAILY NEEDED. Klor-Con 20 mEq oral packet take 1 packet (20MEQ) by ORAL route 5 times every day dissolved in 4-6 ounces of cold water or juice lamotrigine 200 mg tablet take 2 tabs twice daily Lasix 80 mg tablet Take 1.5 tab po every morning loratadine 10 mg tablet TAKE 1 TABLET BY MOUTH ONE TIME DAILY. Lyrica 75 mg capsule take 1 capsule by oral route 2 times every day and 2 capsule at bedtime metolazone 5 mg tablet take 1 tablet by oral route every day for 3 days and then twice a week after that. Multivitamins 1 tablet by mouth daily nystatin 100,000 unit/gram topical cream apply by topical route 3 times every day to the affected area(s) pantoprazole 40 mg tablet,delayed release take 1 tablet by oral route 2 times every day 30 min before a meal prednisone 20 mg tablet take 2 tablet by oral route 2 times every day titrating down over 5 weeks primidone 50 mg tablet take 1- 5 tablet by oral route every day ProAir HFA 90 mcg/actuation aerosol inhaler inhale 2 puff by inhalation route every 4 - 6 hours as needed Requip 4 mg tablet take 1 tablet (4MG) by oral route 2 times every day simvastatin 80 mg tablet TAKE 1 TABLET BY MOUTH AT BEDTIME. Spiriva with HandiHaler 18 mcg and inhalation capsules inhale 1 capsule (18MCG) by INHALATION route every day SYMBICORT 160-4.5MCGAER ASTR INHALE 2 PUFFS BY MOUTH TWO TIMES EVERY DAY IN THE MORNING AND EVENING. Topamax 50 mg tablet take 1 tablet by oral route 2 times every day Tussin 100 mg/5 mL oral liquid take 10 milliliter by oral route every 4 hours as needed Vyvanse 70 mg capsule take 1 capsule by oral route every day in the morning PMH Neurology evaluations included: Unspecified migraine, without mention of intractable migraine and without mention of status migrainosus Peripheral autonomic neuropathy Obsessive-compulsive disorder Attention deficit disorder Bipolar 1 disorder Variants of migraine with intractable migraine without status migrainosus Hypersomnia with sleep apnea Congestive heart failure, unspecified Hearing loss Unspecified adjustment reaction Chronic obstructive asthma Type II diabetes mellitus GERD Upper extremity DVT from PICC placement . Surgical History L4-S1 laminectomy in 1994 Right shoulder acromioplasty in 1984 Left shoulder acromioplasty in 1990, 1993 Left knee arthroscopy in 1997 Jayce fundoplication in 1993 C5-7 decompression, C3-T2 PSIS in July [address] Taylor at [facility] Family History Myocardial infarction Diabetes Social History Hx Alcohol Use: Yes (occasional) Hx Substance Use: No Hx Tobacco Use: No Smoking Status: Never Smoker Exam Vital Signs Vital Sign - Last Date Time Temp Pulse Resp B/P Pulse Ox O2 Delivery O2 Flow Rate FiO2 07/23/16 19:39 37.4 91 20 119/41 91 Nasal Cannula 1.00 Exam General: Alert, Oriented X3, Cooperative, No acute Distress Eyes: PERRLA, Scleral Anicteric Mouth: Mouth Normal, Mucous Membranes Moist/Kidron Neck: Supple, no Thyromegaly, trachea central. Chest & Lungs: decreased breathe sounds at bases Cardiovascular: Normal S1, Normal S2, No Murmurs/Rubs/Gallops, Regular Rate/ Rhythm, (No JVD, no peripheral edema) Pulses: Radial (present and equal), Dorsalis Pedi (present and equal) Abdomen: Soft, Non-tender, Non-distended, Normoactive bowel tones. Musculoskeletal: Unremarkable. Normal range of motion, no swollen or erythematous joints Extremities: No edema, no cyanosis, no clubbing. Skin: No rashes. Warm and dry, no erythematous areas Neurological: Grossly neurologically intact, has generalized weakness, Normal Speech, Sensation Intact. tremors noted in both hands Lymphatic: Lymph nodes Cervical and Axillary not palpable. Lab and Diagnostics Labs Laboratory Tests Test 07/23/16 14:50 07/23/16 15:10 White Blood Count 19.4th/mm3 (3.8-10.1) Red Blood Count 3.76mil/mm3 (3.90-5.20) Hemoglobin 11.4g/dL (12.0-15.6) Hematocrit 34.9% (35.0-46.0) Mean Corpuscular Volume 92.8fL (81-100) Mean Corpuscular Hemoglobin 30.3pg (27.0-35.0) Mean Corpuscular Hemoglobin Concent 32.7% (32.0-37.0) Red Cell Distribution Width 14.5% (12.3-15.4) Platelet Count 839bil/L (150-400) Neutrophils (%) (Auto) 79.6% (40-74) Lymphocytes (%) (Auto) 11.7% (14-46) Monocytes (%) (Auto) 7.0% (4-12) Eosinophils (%) (Auto) 0.8% (0-5) Basophils (%) (Auto) 0.2% (0-3) Hold Purple Top Tube Received (Received) Hold Blue Top Tube Received (Received) Urine Color Yellow (YELLOW) Urine Appearance Clear (CLEAR,HAZY) Urine pH 6.5 (5.0-8.0) Urine Specific [place] 1.010 (1.003-1.035) Urine Protein 30mg/dL (NEG,TRACE) Urine Glucose (UA) 500mg/dL (NEGATIVE) Urine Ketones Tracemg/dL (NEGATIVE) Urine Occult Blood Negative (NEGATIVE) Urine Nitrite Negative (NEGATIVE) Urine Bilirubin Negative (NEGATIVE) Urine Urobilinogen Normalmg/dL (NORMAL) Urine Leukocyte Esterase Negative (NEGATIVE) Urine RBC 0-2/hpf (0-2) Urine WBC 0-5/hpf (0-5) Urine Epithelial Cells Moderate/hpf (NONE-MOD) Urine Crystals None seen (NONE SEEN) Urine Bacteria None/hpf (NONE-FEW) Urine Hyaline Casts None/lpf (NONE) Urine Granular Casts None seen (NONE SEEN) Urine Waxy Casts None seen (NONE SEEN) Urine Red Blood Cell Casts None seen (NONE SEEN) Urine White Blood Cell Casts None seen (NONE SEEN) Urine Mucus None seen (None Seen) Urine Trichomonas None seen (NONE SEEN) Urine Yeast None (NONE SEEN) Urinalysis Comment None Urine Culture Reflexed Not indicated Sodium Level 131mEq/L (134-144) Potassium Level 2.6mEq/L (3.5-5.2) Chloride Level 77mEq/L (97-108) Carbon Dioxide Level 35mmol/L (18-29) Blood Urea Nitrogen 25mg/dL (6-24) Creatinine 1.02mg/dL (0.57-1.00) Estimat Glomerular Filtration Rate 81mL/min (>59) Glucose Level 167mg/dL (60-99) Calcium Level 9.4mg/dL (8.5-10.1) Magnesium Level 2.4mg/dL (1.6-2.6) Total Bilirubin 0.4mg/dL (0.0-1.2) Aspartate Amino Transf (AST/SGOT) 26U/L (0-50) Alanine Aminotransferase (ALT/SGPT) 23U/L (0-32) Alkaline Phosphatase 126U/L (25-150) Troponin T < 0.010ug/L (0.0-0.011) Total Protein 7.5g/dL (6.4-8.4) Albumin 3.1g/dL (3.4-5.0) Hold [place] Top Tube Received (Received) Hold Smith Top Tube Received (Received) Hold Urine Received (Received) Microbiology 07/23/16 Blood Culture, Received Pending Result Diagram: 07/23/16 1450 07/23/16 1450 X-Rays, CTs and MRIs X-RAY CHEST ONE VIEW, PORTABLE 07/23 IMPRESSION: Right basilar opacity suggestive of pneumonia. Aspiration pneumonia cannot be excluded. Recommend interval followup to resolution and exclude presence of underlying mass lesion. Dictated by: Jackie Wing M.D. on 07/23/2016 at 16:42 Approved by: Jackie Wing M.D. on 07/23/2016 at 16:42 --- X-RAY ABDOMEN, ONE VIEW 07/23 IMPRESSION: Moderate scattered stool suggestive of mild constipation. No traction. Dictated by: Jackie Wing M.D. on 07/23/2016 at 16:42 Approved by: Jackie Wing M.D. on 07/23/2016 at 16:43 Assessment & Plan Yolis Ornelas is a 55 year old morbidly obese female with a complex medical history including recent CVA x2, chronic respiratory failure secondary to COPD, obstructive asthma, CHF, type II diabetes mellitus, diabetic neuropathy, previous upper extremity DVT s/p PICC line on Warfarin, seizure disorder, GERD and bipolar disorder who presents to [facility] emergency department via EMS complaining of generalized weakness 1. Healthcare associated pneumonia. Present on admission Meeting criteria for health care infection with hospitalization within the last 90 days. Risk factors for MRSA and Pseudomonas. - continue Vancomycin and Levaquin for empiric antibiotics (Patient allergic to Cephalosporin and PCN) - patient denies any aspiration - MRSA screen, Blood cultures - Infectious disease consult may be needed 2 Generalized weakness. Present on admission Multifactorial with UTI and metabolic derangements and deconditioning. Patient has been having some neurological symptoms thought could be a stroke, neurologic event, or psychogenic episode. she has had multiple imaging done with no clear diagnosis. Dr Mitchell labeled her condition as unexplained neurologic event with residual hemiparesis - Physical therapy assessment - Patient was scheduled to start Physical therapy this Friday - treat underlying cause 3 Hypokalemia. Present on admission Patient has chronic hypokalemia and on supplementation but recent episode of vomiting may cause some further potassium loss - monitor on telemetry - supplement continued till normal range 4 Acute Kidney injury. Present on admission Pre renal azotemia likely with hypovolemia. Possible underlying chronic kidney disease due to diabetic nephropathy - avoid nephrotoxic insults - holding diuretics - continue IV fluids with NS 5 Constipation, Chronic, present on admission. - No pain with examination at time of admission; patient has not mobilized significantly - Miralax and Colace scheduled - consider suppository or Golytely 6 Insulin-dependent diabetes mellitus with peripheral neuropathy. Uncontrolled - low dose correctional Lispro algorithm - continuing Lyrica 150 mg bid - will need to determine outpatient regimen in the morning 7 Suspected obesity hypoventilation/KENAN on CPAP therapy, chronic. Presumed stable - Patient has own CPAP for use 8 COPD. Presumed stable - continuing Neb treatments - continue Budesonide, Fluticasone 9 History of seizures/Restless Leg syndrome, chronic. Presumed stable - continuing Mirapex, Topamax and Lamotrigine - Acetaminophen as needed for mild pain/fever/headache - Bowel regimen as needed - Antiemetic as needed Patient admitted under inpatient status with expected length of stay > 2 midnights for severity of present symptoms, complexities of treatment plan and risk for adverse event . Resuscitation Status: CPR: Attempt Resuscitation Conner Salas MD July 23, 2016 20:50
[2016-07-23] MEDS: Vancomycin Dose per Pharmacist XX SCH (21:05)
[2016-07-23] MEDS ORDERED: Glucose 40% Oral Gel 15 Gm Tube PO PRN (21:45)
[2016-07-23] MEDS ORDERED: Dextrose 10% 250 ML IV PRN (21:45)
[2016-07-23] MEDS ORDERED: _Albuterol 2.5 mg/3 mL Neb NEB PRN (21:50)
[2016-07-23] MEDS: Polyethylene Glycol (PEG) 17 Gm Powder PO SCH (22:00)
[2016-07-23] MEDS ORDERED: Vancomycin Inj 2,000 MG in 0.9% Sodium Chloride 500 ML IV ONE (22:00)
[2016-07-23] MEDS: 0.9% Sodium Chloride 1,000 ML IV SCH (22:57)
--- NOTE | 2016-07-23 23:19 | PCM.CONPHA ---
Subjective Date of Service: July 23, 2016 Generalized weakness Reason for Pharmacy Consult: Vancomycin Dosing Objective Vital Signs Date Time Temp Pulse Resp B/P Pulse Ox O2 Delivery O2 Flow Rate FiO2 07/23/16 19:39 37.4 91 20 119/41 91 Nasal Cannula 1.00 07/23/16 19:20 90 07/23/16 17:09 101 23 120/46 95 Nasal Cannula 2.5 07/23/16 15:30 88 20 121/45 94 Nasal Cannula 2 07/23/16 15:00 37.0 89 20 150/56 93 Nasal Cannula 2 Weight (Kilograms): 108.500 Height (Feet): 5 Height (Inches): 8.00 Test 07/23/16 14:50 07/23/16 15:10 07/23/16 22:18 White Blood Count 19.4th/mm3 (3.8-10.1) Red Blood Count 3.76mil/mm3 (3.90-5.20) Hemoglobin 11.4g/dL (12.0-15.6) Hematocrit 34.9% (35.0-46.0) Mean Corpuscular Volume 92.8fL (81-100) Mean Corpuscular Hemoglobin 30.3pg (27.0-35.0) Mean Corpuscular Hemoglobin Concent 32.7% (32.0-37.0) Red Cell Distribution Width 14.5% (12.3-15.4) Platelet Count 839bil/L (150-400) Neutrophils (%) (Auto) 79.6% (40-74) Lymphocytes (%) (Auto) 11.7% (14-46) Monocytes (%) (Auto) 7.0% (4-12) Eosinophils (%) (Auto) 0.8% (0-5) Basophils (%) (Auto) 0.2% (0-3) Hold Purple Top Tube Received (Received) Hold Blue Top Tube Received (Received) Urine Color Yellow (YELLOW) Urine Appearance Clear (CLEAR,HAZY) Urine pH 6.5 (5.0-8.0) Urine Specific [place] 1.010 (1.003-1.035) Urine Protein 30mg/dL (NEG,TRACE) Urine Glucose (UA) 500mg/dL (NEGATIVE) Urine Ketones Tracemg/dL (NEGATIVE) Urine Occult Blood Negative (NEGATIVE) Urine Nitrite Negative (NEGATIVE) Urine Bilirubin Negative (NEGATIVE) Urine Urobilinogen Normalmg/dL (NORMAL) Urine Leukocyte Esterase Negative (NEGATIVE) Urine RBC 0-2/hpf (0-2) Urine WBC 0-5/hpf (0-5) Urine Epithelial Cells Moderate/hpf (NONE-MOD) Urine Crystals None seen (NONE SEEN) Urine Bacteria None/hpf (NONE-FEW) Urine Hyaline Casts None/lpf (NONE) Urine Granular Casts None seen (NONE SEEN) Urine Waxy Casts None seen (NONE SEEN) Urine Red Blood Cell Casts None seen (NONE SEEN) Urine White Blood Cell Casts None seen (NONE SEEN) Urine Mucus None seen (None Seen) Urine Trichomonas None seen (NONE SEEN) Urine Yeast None (NONE SEEN) Urinalysis Comment None Urine Culture Reflexed Not indicated Magnesium Level 2.4mg/dL (1.6-2.6) Total Bilirubin 0.4mg/dL (0.0-1.2) Aspartate Amino Transf (AST/SGOT) 26U/L (0-50) Alanine Aminotransferase (ALT/SGPT) 23U/L (0-32) Alkaline Phosphatase 126U/L (25-150) Troponin T < 0.010ug/L (0.0-0.011) Total Protein 7.5g/dL (6.4-8.4) Albumin 3.1g/dL (3.4-5.0) Hold [place] Top Tube Received (Received) Hold Smith Top Tube Received (Received) Hold Urine Received (Received) Sodium Level 131mEq/L (134-144) Potassium Level 2.7mEq/L (3.5-5.2) Chloride Level 84mEq/L (97-108) Carbon Dioxide Level 30mmol/L (18-29) Blood Urea Nitrogen 20mg/dL (6-24) Creatinine 0.96mg/dL (0.57-1.00) Estimat Glomerular Filtration Rate 87mL/min (>59) Glucose Level 298mg/dL (60-99) Calcium Level 8.2mg/dL (8.5-10.1) Assessment/Plan Assessment/Plan VANCOMYCIN MANAGEMENT A\ 55yo F with presued nosocomial pneumonia goal vancomycin trough 15-20 SCr=1.02 ,GFR= 91 WBC=19.4 Received levaguin 750mg iv in ER x1 Cultures pending P\ Pt received vancomycin 2000mg iv x1 loading dose and will get 1250mg iv q12h with first dose 1100 5/24 and vancomycin trough at 1030 5\25 Pharmacy will continue to monitor and adjust as needed. Servando [facility] July 23, 2016 23:19
[2016-07-23] MEDS: Insulin LISPRO 300 Unit/3 mL Inj SUBQ SCH (23:22)
[2016-07-23] MEDS: Albuterol 2.5 mg/3 mL Inhalation Solution NEB PRN (23:26)
[2016-07-23 23:28] VITALS: PULSE 88; RESP 20; O2SAT 94
[2016-07-23] MEDS ORDERED: KCl 40 mEq/D5W 500 mL 40 MEQ in IV Premix 1 EACH IV ONE (23:30)
[2016-07-24] VITALS (9 sets, daily range): BP systolic 95–144; BP diastolic 55–72; PULSE 62–90; RESP 18; O2SAT 92–96
--- NOTE | 2016-07-24 01:23 | NUR ---
ADMIT Patient awake and alert for initial assessment. Coarse, frequent cough, RT called for neb treatment. K+ remains at critical low values, made aware and new orders for Rebekah received. Placed on pulse ox for KENAN. Plans to have bring her machine tomorrow, refuses hospital cpap. Oriented to room and call light. Addendum: 07/24/16 at 5714 by DENISE CASTRO RN Patient bladder scan revealed >999ml. Placed on bed vaz and was able to void 800ml.
[2016-07-24] MEDS: Insulin LISPRO 300 Unit/3 mL Inj SUBQ SCH (03:24)
[2016-07-24 05:49] LABS: BASOPHILS % (AUTO) 0.2 % (0-3)
[2016-07-24 05:53] LABS: EOSINOPHILS % (AUTO) 0.9 % (0-5); MONOCYTES % (AUTO) 7.1 % (4-12); Mean Corpuscular Hemoglobin 30.2 pg (27.0-35.0); Mean Corpuscular Volume 93.6 fL (81-100); NEUTROPHILS % (AUTO) 80.7 % (40-74); Platelet Count 656 bil/L (150-400)
[2016-07-24 06:15] LABS: ERYTHROCYTE SEDIMENTATION RATE > 140 mm/hr (0-40)
[2016-07-24 06:51] LABS: Magnesium 2.2 mg/dL (1.6-2.6)
[2016-07-24] MEDS: Albuterol 2.5 mg/3 mL Inhalation Solution NEB PRN ×2 (07:55→22:33)
[2016-07-24] MEDS: Vancomycin Dose per Pharmacist XX SCH (08:30)
[2016-07-24] MEDS ORDERED: [UNRECOGNIZED DRUG - OTHER] PO SCH (08:30)
[2016-07-24] MEDS: Fluticasone-Salmeterol 500-50 Inhaler INHALATION SCH ×2 (09:04→21:50)
[2016-07-24] MEDS: Polyethylene Glycol (PEG) 17 Gm Powder PO SCH (09:08)
[2016-07-24] MEDS: [UNRECOGNIZED DRUG - OTHER] PO SCH ×6 (09:08→22:12)
[2016-07-24] MEDS: Pantoprazole 40 mg ER24 Tablet PO SCH ×2 (09:09→21:52)
[2016-07-24] MEDS: lamoTRIgine 100 mg Tablet PO SCH ×2 (09:09→21:51)
[2016-07-24] MEDS ORDERED: Insulin LISPRO 300 Unit/3 mL Inj SUBQ SCH (09:14)
--- NOTE | 2016-07-24 11:38 | NUR ---
Social Work: Screening Data: Pt is a 55 y/o female admitted fo pneumonia, hypokalemia, general weakness. Pt's PCP is Dr Mitchell, pt's insurance is [employer] and [employer] with PW blind/disabled. Readmit score is 5, high. DIALYSIS TECHNICIAN will meet with pt for Initial Assessment due to high readmission risk and reports of pt sitting in a chair for extended periods of time. Assessment: Pt requiring assistance. Plan: DIALYSIS TECHNICIAN will meet with pt for Initial Assessment due to high readmission risk and reports of pt sitting in a chair for extended periods of time. SVETLANA Oliver
[2016-07-24] MEDS: Vancomycin Inj 1,250 MG in 0.9% Sodium Chloride 250 ML IV SCH ×2 (11:47→23:13)
[2016-07-24] MEDS: 0.9% Sodium Chloride 1,000 ML IV SCH ×2 (11:48→23:13)
--- NOTE | 2016-07-24 11:52 | NUR ---
Evaluation completed. Please go to "Notes" then click on "Assessments and Notes" (bottom left corner of screen). Then select appropriate discipline tab on top of screen.
[2016-07-24] MEDS: Insulin LISPRO High-Dose Scale SUBQ SCH ×3 (11:53→21:53)
--- NOTE | 2016-07-24 12:05 | NUR ---
Wound Note Wound orders received, patient seen at bedside today. 55 yo diabetic female admitted to [facility] for weakness and possible pneumonia. Medical history is also significant for multiple CVA's, sees Dr Jacinda Cervantes at [facility] for diabetic foot care. Today patient presents with a draining left plantar 1st met head ulceration that has a central open area measuring 1 cm x 0.8 cm x 0.5 cm there is some erythema which extends 0.5 cms out from the wound at 9 o'clock, periwound skin is calloused and undermined approximately 0.7 cms circumferentially. Wound is draining costa pus on old dressing but after undermined skin was removed today I was unable to detect any fluctuance or further undrained pockets of pus. Wound was cleaned and dressed with saline moistened 2 x 2 gauze covered with dry gauze and taped in place, this dressing will be rechecked by wound care tomorrow but can be changed PRN for soiling by nursing in the meantime. Patient also presents with 2 abrasions at her right leg from a fall at home; knee 1 cm x 1.5 cm and covered with scab, tibial tuberosity 1.6 cm x 2.1 cm and with fibrin, both of these wounds were covered with a mepilex foam dressing and can be changed by nursing PRN.
--- NOTE | 2016-07-24 12:10 | DRSVH ---
[facility] [address] [place] [address] Echocardiogram Report Name: JAILENE LOBATO EStudy Date : 07/24/2016 Height: 6 8 in Hospital Exam Location: [facility] Weight: 2 39 lb Gender: Female BSA: 2.2 m2 : 1960 Age: 55 yrs BP: 102/5 6 mmHg Reason For Study: Possible Cardiomyopathy Performed By: Jia Chavez Referring Physician: ROSITA ALMAGUER Interpretation Summary The left ventricle is normal in size. Left ventricular systolic function is normal without focal wall motion abnormalities. The ejection fraction is estimated to be 60-65%. Assessment of diastolic parameters indicates normal left ventricular diastolic function and normal filling pressures. The right ventricle is normal in size and function. The right ventricular systolic pressure is estimated at 38 mmHg assuming a right atrial pressure of 3 mm Hg. The left atrial size is normal. Borderline right atrial enlargement. There is no significant valvular heart disease. No signficant changes in comparison with all 3 prior echo studies since 2014. Procedure: A two-dimensional transthoracic echocardiogram with color flow and Doppler was performed in limited views only. The study quality was technically adequate. Comparison is made with the echocardiogram of 06/11/2016. Patient was in sinus rhythm with a heart rate varying from 87-100 bpm. Left Ventricle: The left ventricle is normal in size. There is normal left ventricular wall thickness. Left ventricular systolic function is normal without focal wall motion abnormalities. The ejection fraction is estimated to be 60-65%. Assessment of diastolic parameters indicates normal left ventricular diastolic function and normal filling pressures. Right Ventricle: The right ventricle is normal in size and function. Atria: The left atrial size is normal. (visual estimate). Borderline right atrial enlargement. The interatrial septum is intact with no evidence for an atrial septal defect. Mitral Valve: The mitral valve is normal in structure and function. There is trace mitral regurgitation. Aortic Valve: The aortic valve is trileaflet. The aortic valve is slightly calcified. There is no aortic regurgitation. Tricuspid Valve: The tricuspid valve is normal in structure and function. There is mild tricuspid regurgitation. The right ventricular systolic pressure is estimated at 38 mmHg assuming a right atrial pressure of 3 mm Hg. Pulmonic Valve: The pulmonic valve is normal in structure and function. There is trace pulmonic regurgitation. There is no significant valvular heart disease. Great Vessels: The aortic root is normal size. The ascending aorta could not be visualized. The IVC is of normal diameter and collapses greater than 50% with a sniff. This suggests a low right atrial pressure of 3 mm Hg. Pericardium/ Pleura There is no pericardial effusion. There is an anterior echo-free space consistent with a fat pad. There is no pleural effusion. MMode/2D Measurements & Calculations LVIDd IVC diam LV martin. diameter/BSA LV sys. diameter/BSA : 5.0 cm : 2.4 cm (cm/m^2): 2.3 (cm/m^2): 1.2 LVIDs : 2.7 cm FS: 45.4 % IVSd : 0.9cm LVPWd : 0.9cm TAPSE : 2.6 cm Doppler Measurements & Calculations Ao V2 max MV E max kris MV E/A: 1.4 TR max kris : 198.3 cm/sec : 107.9 cm/sec Med Peak E' Kris : 297.6 cm/sec Ao max PG MV A max kris TR max PG : 15.7 mmHg : 77.6 cm/sec E/E' med: 11.1 : 35.5 mmHg Ao mean PG Lat Peak E' Kris PA V2 max : 76.5 cm/sec LVOT Max Kris E/E' lat: 9.6 PA mean PG : 145.8 cm/sec E/e' average: 10.4 : 1.7 mmHg sev ratio: 0.75 MV dec time Ao V2 mean LV V1 max PG PA V2 mean : 0.19 sec : 149.6 cm/sec : 62.3 cm/sec Ao V2 VTI: 37.2 cm LV V1 VTI: 27.8 cm PA pr(Accel) : 31.5 mmHg Reading Physician:MARIA A
--- NOTE | 2016-07-24 14:26 | NUR ---
Evaluation completed. Please go to "Notes" then click on "Assessments and Notes" (bottom left corner of screen). Then select appropriate discipline tab on top of screen.
--- NOTE | 2016-07-24 14:30 | NUR ---
Evaluation completed. Please go to "Notes" then click on "Assessments and Notes" (bottom left corner of screen). Then select appropriate discipline tab on top of screen.
--- NOTE | 2016-07-24 14:54 | NUR ---
Social Work: Initial Assessment Data: Pt is a 55 y/o female admitted for pneumonia, hypokalemia, general weakness. Pt's PCP is Dr Mitchell, pt's [facility] is [employer] [facility]. EMR reviewed. Readmit score is 5, high. INTERIOR DESIGN DIRECTOR met with pt at bedside, role explained. Pt states that she lives in [place] with her and daughter where there are 4 stairs to enter and she uses a cane for mobility. She states she also has a walker that occasionally uses. Pt states she does not drive, has no hx of HH or SNF, has no LCT or VA benefits, and is not a caregiver. Pt states that she discharged last month home and not to a SNF because her insurance would not cover it and she planned to do outpt PT but she states that her PT was out of town and she did not pursue going to another one. Pt states that she was doing well at home using her can until the last week she became more weak and states that since Friday night she has not been able to get out of her chair without the assistance of her who was able to get her out of the chair and to the bathroom until 2 days ago. INTERIOR DESIGN DIRECTOR asked when they decided to call and she states that the called her PCP's office who directed her to call after she told them that she could not get out of the chair even with assistance and had been sitting in the chair for over 24 hours. INTERIOR DESIGN DIRECTOR asked pt if pt feels safe at home. She said she does feel safe but that they just couldn't get her up out of the chair and she had not been feeling well. PT and OT both recommend SNF at this time. ST recommends no further ST needs. INTERIOR DESIGN DIRECTOR anticipating SNF. INTERIOR DESIGN DIRECTOR will discuss with MD. Assessment: Pt with caregiving at baseline, cane at baseline. Plan: INTERIOR DESIGN DIRECTOR will discus with MD regarding SNF. INTERIOR DESIGN DIRECTOR anticipating SNF. INTERIOR DESIGN DIRECTOR will continue to follow. SVETLANA Oliver Addendum: 07/24/16 at 1509 by SUNIL RODRIGUEZ Amended: Links added.
[2016-07-24] MEDS ORDERED: Insulin GLARgine 100 Unit/mL Syringe SUBQ ONE (15:31)
--- NOTE | 2016-07-24 15:31 | NUR ---
CPAP Pt's CPAP brought in by her . [employer] called to check equipment.
--- NOTE | 2016-07-24 17:34 | NUR ---
ACTIVITY/BLOOD SUGARS Patient reluctant to activity, sitting at edge of bed, up to bedside commode. PT evaluation today, sat at the edge of bed for ~5-10 minutes. Patient also reluctant to self feeding due to tremors. Encouraged independence with feeding. Patient compliant. Will continue to encourage activity and independence with eating. Patient in bed, bed in lowest and locked position, call light within reach. Will continue to monitor. Patients blood sugars consistently high in high 300s, short acting sliding scale changed to high dose sliding scale with addition of long acting insulin. Pharmacy following closely. Will continue to monitor.
[2016-07-24] MEDS: Tiotropium 18mcg/Cap 5 Capsule Inhaler Kit INHALATION SCH (21:50)
[2016-07-24] MEDS: DULoxetine 30 mg DR Capsule PO SCH (21:52)
[2016-07-24] MEDS: Insulin GLARgine 100 Unit/mL Syringe SUBQ SCH (21:53)
--- NOTE | 2016-07-24 23:38 | PCM.PNMED ---
Subjective Date of Service July 24, 2016 Subjective Patient states she does not feel any better than when she was admitted. She has no specific complaints other than profound generalized weakness. Exam Vital Signs Vital Sign - Last Date Time Temp Pulse Resp B/P Pulse Ox O2 Delivery O2 Flow Rate FiO2 07/24/16 22:34 3.00 07/24/16 22:33 80 18 96 Nasal Cannula 07/24/16 21:42 36.5 112/65 Intake and Output 07/23/16 07/23/16 07/24/16 Cumulative From/Thru 15:00 23:00 07:00 07/23/16 15:00 - 07/24/16 06:43 Intake Total 1000 ml 700 ml 1700 ml Output Total 500 ml 800 ml 1300 ml Balance 500 ml -100 ml 400 ml Intake Oral 700 ml 700 ml IV Total 1000 ml 1000 ml Output Urine Total 500 ml 800 ml 1300 ml Exam General: Patient is lying comfortably supine in bed in no apparent distress. HEENT: Head is atraumatic and normocephalic. Eyes: Pupils are equally round and reactive to light and accommodation. Extraocular muscles are intact. Sclera are white, anicteric. Subconjunctival mucosa is pink. Ears and nose are unremarkable. Oropharynx: There is no mucosal lesions, there is no thrush, there is no pharyngitis. Neck: Is supple, there are no nodes, or masses or tenderness. Chest: Is significant for diminished breath sounds at the bases and bibasilar crackles. Heart: Rate, rhythm is regular. There is no murmur, rub or gallop. Abdomen: Good bowel sounds are present. Abdomen is soft, nontender, no organomegaly or masses were appreciated. Extremities: Are symmetrical and well perfused. There is no edema, there is no cellulitis, no rash. Neurologic: Patient has an essential tremor of the right upper extremity at rest. Otherwise, there are no focal neurological deficits. Cranial nerves II through XII are intact. There are no sensory or motor deficits. The patient has generalized weakness. Psychiatric: Patients mood is calm and she shows no sign of agitation. Genital: Deferred Rectal: Deferred Lab and Diagnostics Result Diagram: 07/24/16 0540 07/24/16 0540 Microbiology Blood cultures are negative at 24 hours Sputum culture is pending X-Rays, CTs and MRIs X-RAY CHEST ONE VIEW, PORTABLE 07/23 IMPRESSION: Right basilar opacity suggestive of pneumonia. Aspiration pneumonia cannot be excluded. Recommend interval followup to resolution and exclude presence of underlying mass lesion. Dictated by: Jackie Wing M.D. on 07/23/2016 at 16:42 Approved by: Jackie Wing M.D. on 07/23/2016 at 16:42 --- PROCEDURE: X-RAY ABDOMEN, ONE VIEW ([id number]) INDICATIONS: constipation TECHNIQUE: One view of the abdomen acquired. COMPARISON: None. FINDINGS: Surgical changes and devices: None. Bowel: Bowel gas pattern is normal. Moderate scattered stool. Soft tissues: No suspicious abdominal calcifications. Visualized solid organ contours appear normal in size. Bones: No suspicious bony lesions. IMPRESSION: Moderate scattered stool suggestive of mild constipation. No traction. Dictated by: Jackie Wing M.D. on 07/23/2016 at 16:42 Approved by: Jackie Wing M.D. on 07/23/2016 at 16:43 Cardiac Echo Impressions Echocardiogram Report Name: YOLIS LOBATO EStudy Date : 07/24/2016 Height: 6 8 in Hospital Exam Location: [facility] Weight: 2 39 lb Gender: Female BSA: 2.2 m2 : 1960 Age: 55 yrs BP: 102/5 6 mmHg Reason For Study: Possible Cardiomyopathy Performed By: Jia Chavez Referring Physician: ROSITA MENDOZA Interpretation Summary The left ventricle is normal in size. Left ventricular systolic function is normal without focal wall motion abnormalities. The ejection fraction is estimated to be 60-65%. Assessment of diastolic parameters indicates normal left ventricular diastolic function and normal filling pressures. The right ventricle is normal in size and function. The right ventricular systolic pressure is estimated at 38 mmHg assuming a right atrial pressure of 3 mm Hg. The left atrial size is normal. Borderline right atrial enlargement. There is no significant valvular heart disease. No signficant changes in comparison with all 3 prior echo studies since 2015. Assessment & Plan Yolis Lobato is a 55 year old morbidly obese female with a complex medical history including recent CVA x2, chronic respiratory failure secondary to COPD, obstructive asthma, CHF, type II diabetes mellitus, diabetic neuropathy, previous upper extremity DVT s/p PICC line on Warfarin, seizure disorder, GERD and bipolar disorder who presents to [facility] emergency department via EMS complaining of generalized weakness 1. Healthcare associated pneumonia. Present on admission Meeting criteria for health care infection with hospitalization within the last 90 days. Risk factors for MRSA and Pseudomonas. - continue Vancomycin and Levaquin for empiric antibiotics (Patient allergic to Cephalosporin and PCN) - patient denies any aspiration - MRSA screen, Blood cultures -Check respiratory viral PCR screen. - Infectious disease consult may be needed 2 Generalized weakness. Present on admission Multifactorial with UTI and metabolic derangements and deconditioning. Patient has been having some neurological symptoms thought could be a stroke, neurologic event, or psychogenic episode. she has had multiple imaging done with no clear diagnosis. Dr Mitchell labeled her condition as unexplained neurologic event with residual hemiparesis - Physical therapy assessment - Patient was scheduled to start Physical therapy this Friday - treat underlying cause 3 Hypokalemia. Present on admission Patient has chronic hypokalemia and on supplementation but recent episode of vomiting may cause some further potassium loss - monitor on telemetry - supplement continued till normal range 4 Acute Kidney injury. Present on admission Pre renal azotemia likely with hypovolemia. Possible underlying chronic kidney disease due to diabetic nephropathy - avoid nephrotoxic insults - holding diuretics - continue IV fluids with NS 5 Constipation, Chronic, present on admission. - No pain with examination at time of admission; patient has not mobilized significantly - Miralax and Colace scheduled - consider suppository or Golytely 6 Insulin-dependent diabetes mellitus with peripheral neuropathy. Uncontrolled - low dose correctional Lispro algorithm - continuing Lyrica 150 mg bid - will need to determine outpatient regimen in the morning 7 Suspected obesity hypoventilation/KENAN on CPAP therapy, chronic. Presumed stable - Patient has own CPAP for use 8 COPD. Presumed stable - continuing Neb treatments - continue Budesonide, Fluticasone 9 History of seizures/Restless Leg syndrome, chronic. Presumed stable - continuing Mirapex, Topamax and Lamotrigine - Acetaminophen as needed for mild pain/fever/headache - Bowel regimen as needed - Antiemetic as needed Disposition: Patient likely to be here another 4872 hours for evaluation treatment of the above problems. . Pain Evaluation: Adequate Pain Control GI Prophylaxis: Proton Pump Inhibitor VTE Prophylaxis: Sub-Q Enoxaparin Resuscitation Status: CPR: Attempt Resuscitation Rosita Mendoza MD July 24, 2016 23:38
[2016-07-25] VITALS (8 sets, daily range): BP systolic 107–118; BP diastolic 57–73; PULSE 81–94; RESP 16–18; O2SAT 95–96
[2016-07-25] MEDS: levoFLOXacin Inj 750 MG in IV Premix 1 EACH IV SCH ×2 (02:18→02:20)
[2016-07-25] MEDS: Insulin LISPRO High-Dose Scale SUBQ SCH ×5 (02:19→22:47)
[2016-07-25] MEDS: 0.9% Sodium Chloride 1,000 ML IV SCH ×2 (04:05→12:41)
--- NOTE | 2016-07-25 05:09 | NUR ---
activity/BG used bedpan to void, able to help with turning. brushed her teeth independently after set up. BG was in the 300s; sliding scale and scheduled lantus given. repeat BG was still 318. more lispro given.
[2016-07-25 06:20] LABS: BASOPHILS % (AUTO) 0.1 % (0-3); EOSINOPHILS % (AUTO) 1.7 % (0-5); MONOCYTES % (AUTO) 6.9 % (4-12); Mean Corpuscular Hemoglobin 30.4 pg (27.0-35.0); NEUTROPHILS % (AUTO) 75.9 % (40-74); Platelet Count 615 bil/L (150-400)
[2016-07-25 06:44] LABS: Magnesium 2.2 mg/dL (1.6-2.6)
[2016-07-25] MEDS: Albuterol 2.5 mg/3 mL Inhalation Solution NEB PRN (07:34)
[2016-07-25] MEDS: Vancomycin Dose per Pharmacist XX SCH (08:30)
[2016-07-25] MEDS: Fluticasone-Salmeterol 500-50 Inhaler INHALATION SCH ×2 (09:19→21:08)
[2016-07-25] MEDS: lamoTRIgine 100 mg Tablet PO SCH ×2 (09:20→21:11)
[2016-07-25] MEDS: Pantoprazole 40 mg ER24 Tablet PO SCH ×2 (09:21→21:15)
[2016-07-25] MEDS: Polyethylene Glycol (PEG) 17 Gm Powder PO SCH ×3 (09:21→21:17)
[2016-07-25] MEDS: [UNRECOGNIZED DRUG - OTHER] PO SCH ×4 (09:24→16:22)
[2016-07-25] MEDS ORDERED: Insulin GLARgine 100 Unit/mL Syringe SUBQ ONE (10:15)
[2016-07-25] MEDS ORDERED: Potassium Chloride 20 mEq SR Tablet PO ONE (10:25)
[2016-07-25] MEDS ORDERED: Vancomycin Serum Trough XX ONE (10:30)
--- NOTE | 2016-07-25 13:24 | PCM.PNMED ---
Subjective Date of Service July 25, 2016 Subjective still has intermittent cough, worse with laying down, thick yellowish sputum still producing, little less. pt otherwise feels okay, tolerating diet GLC>300, more uncontrolled overnight, this AM, additional 10unit lantus given pt has baseline restring tremors, unchanged Exam Vital Signs Vital Sign - Last Date Time Temp Pulse Resp B/P Pulse Ox O2 Delivery O2 Flow Rate FiO2 07/25/16 09:31 36.9 91 18 109/65 95 Nasal Cannula 3.00 Intake and Output 07/24/16 07/24/16 07/25/16 Cumulative From/Thru 15:00 23:00 07:00 07/23/16 15:00 - 07/25/16 06:16 Intake Total 1343 ml 2702 ml 1572 ml 7317 ml Output Total 800 ml 2100 ml Balance 1343 ml 2702 ml 772 ml 5217 ml Intake Oral 1804 ml 400 ml 2904 ml IV Total 1343 ml 898 ml 1172 ml 4413 ml Output Urine Total 800 ml 2100 ml # Voids 4 4 Exam obese female, comfortably laying down on bed no JVD, MMM, no LAD RRR, nl s1, s2 no mrg mild crackles diffusely anteriorly, no wheezing S,ND,NT,normoactive BS+ warm, no edema, pulses 2/2 IVs and Medications Medications Reviewed: Medications were reviewed in detail Lab and Diagnostics Result Diagram: 07/25/1645 07/25/16544 Microbiology Blood cultures are negative at 24 hours Sputum culture is pending X-Rays, CTs and MRIs X-RAY CHEST ONE VIEW, PORTABLE 07/23 IMPRESSION: Right basilar opacity suggestive of pneumonia. Aspiration pneumonia cannot be excluded. Recommend interval followup to resolution and exclude presence of underlying mass lesion. Dictated by: Jackie Wing M.D. on 07/23/2016 at 16:42 Approved by: Jackie Wing M.D. on 07/23/2016 at 16:42 --- PROCEDURE: X-RAY ABDOMEN, ONE VIEW ([id number]) INDICATIONS: constipation TECHNIQUE: One view of the abdomen acquired. COMPARISON: None. FINDINGS: Surgical changes and devices: None. Bowel: Bowel gas pattern is normal. Moderate scattered stool. Soft tissues: No suspicious abdominal calcifications. Visualized solid organ contours appear normal in size. Bones: No suspicious bony lesions. IMPRESSION: Moderate scattered stool suggestive of mild constipation. No traction. Dictated by: Jackie Wing M.D. on 07/23/2016 at 16:42 Approved by: Jackie Wing M.D. on 07/23/2016 at 16:43 Cardiac Echo Impressions Echocardiogram Report Name: YOLIS LOBATO EStudy Date : 07/24/2016 Height: 6 8 in Hospital Exam Location: [facility] Weight: 2 39 lb Gender: Female BSA: 2.2 m2 : 1960 Age: 55 yrs BP: 102/5 6 mmHg Reason For Study: Possible Cardiomyopathy Performed By: Jia Chavez Referring Physician: ROSITA ALMAGUER Interpretation Summary The left ventricle is normal in size. Left ventricular systolic function is normal without focal wall motion abnormalities. The ejection fraction is estimated to be 60-65%. Assessment of diastolic parameters indicates normal left ventricular diastolic function and normal filling pressures. The right ventricle is normal in size and function. The right ventricular systolic pressure is estimated at 38 mmHg assuming a right atrial pressure of 3 mm Hg. The left atrial size is normal. Borderline right atrial enlargement. There is no significant valvular heart disease. No signficant changes in comparison with all 3 prior echo studies since 2014. Assessment & Plan Yolis Lobato is a 55 year old morbidly obese female with a complex medical history including recent CVA x2, chronic respiratory failure secondary to COPD, obstructive asthma, CHF, type II diabetes mellitus, diabetic neuropathy, previous upper extremity DVT s/p PICC line on Warfarin, seizure disorder, GERD and bipolar disorder who presents to [facility] emergency department via EMS complaining of generalized weakness 1. Healthcare associated pneumonia. Present on admission, met criteria for HCAP hospitalization within the last 90 days. Risk factors for MRSA and Pseudomonas. - pt is clinically improving with current tx, remained afebrile, less symptomatic, labs trends better. - continue Levaquin for empiric antibiotics (Patient allergic to Cephalosporin and PCN), vancomycin d/derrick 07/26 with negative MRSA swab -awaits Blood cultures, will consider ID consult, if clinically doesn't improve. 2 Generalized weakness. Present on admission, Multifactorial metabolic derangements and poor baseline function with deconditioning RLS, resting tremors , obesity. probable CVA in the past. -likely d/c to SNF upon d/c, order placed -daily PT to increase mobility 5 Constipation, Chronic, present on admission. benign abdomen on exam, -continue aggressive bowel regimen, 3 Hypokalemia. Present on admission, due to GI fluid loss -replete as needed 6 Insulin-dependent diabetes mellitus with peripheral neuropathy. Uncontrolled still>300s -continue high dose correctional Lispro algorithm, [id number] lantus last night and this AM. will try 20 to 25unit tomorrow AM -continuing Lyrica 150 mg bid -fsg qac, -trends a1c chronic, stable, resolved 7 Suspected obesity hypoventilation/KENAN on CPAP therapy, chronic. Presumed stable - Patient has own CPAP for use 8 COPD. Presumed stable - continuing Neb treatments - continue Budesonide, Fluticasone 9 History of seizures/Restless Leg syndrome, chronic. Presumed stable - continuing Mirapex, Topamax and Lamotrigine - Acetaminophen as needed for mild pain/fever/headache - Bowel regimen as needed - Antiemetic as needed Disposition: likely 1-2more days, SNF seems appropriate given initial presentation GI Prophylaxis: Proton Pump Inhibitor VTE Prophylaxis: Sub-Q Enoxaparin Resuscitation Status: CPR: Attempt Resuscitation Time spent 35min Lara Naranjo MD July 25, 2016 10:41
--- NOTE | 2016-07-25 14:15 | NUR ---
[facility] cannot take pt. They state they are not contracted with pt's insurance and cannot even do a one time agreement with that insurance. SVETLANA Oliver
--- NOTE | 2016-07-25 14:24 | NUR ---
Wound Note Patient seen at bedside for dressing change left plantar foot ulcer. No new drainage noted on yesterdays dressing, on removal wound is noted to have a central fibrinous plug 1 cm in diameter. Ulcer edges are friable and bleed easily with cleaning today which was performed with saline and gauze today. Wound does not tunnel or undermine. Redressed with saline moist gauze, dry gauze and tape. Nursing to change daily.
--- NOTE | 2016-07-25 15:24 | NUR ---
Gave access and faxed facesheet to JULIA,ROXANNE,[facility],Trina [facility]ire. [facility] is reviewing patient and is not in network for this patient so there is a higher copay to patient. Updated WOOD ENGRAVER
[2016-07-25] MEDS: DULoxetine 30 mg DR Capsule PO SCH (21:16)
[2016-07-25] MEDS: Tiotropium 18mcg/Cap 5 Capsule Inhaler Kit INHALATION SCH (21:17)
[2016-07-25] MEDS: Insulin GLARgine 100 Unit/mL Syringe SUBQ SCH (21:22)
[2016-07-26] VITALS (10 sets, daily range): BP systolic 111–119; BP diastolic 62–69; PULSE 87–101; RESP 16–20; O2SAT 94–97
[2016-07-26] MEDS: levoFLOXacin Inj 750 MG in IV Premix 1 EACH IV SCH ×2 (00:19→23:26)
[2016-07-26] MEDS: Vancomycin 125 mg Oral Capsule PO SCH ×5 (00:36→23:22)
--- NOTE | 2016-07-26 04:38 | NUR ---
O2 Saturation 92-95% O2 sat on 3L N.C. Refused CPAP again stating: "RT was supposed to come in by now" when I offered to call: "forget it I don't want to wear my cpap" Provided benefits of wearing CPAP vs N.C. when sleeping.
[2016-07-26] MEDS: 0.9% Sodium Chloride 1,000 ML IV SCH ×2 (05:14→15:32)
[2016-07-26 06:20] LABS: BASOPHILS % (AUTO) 0.2 % (0-3); EOSINOPHILS % (AUTO) 2.5 % (0-5); MONOCYTES % (AUTO) 7.9 % (4-12); Mean Corpuscular Hemoglobin 29.9 pg (27.0-35.0); NEUTROPHILS % (AUTO) 69.3 % (40-74); Platelet Count 657 bil/L (150-400)
[2016-07-26] MEDS: Insulin LISPRO High-Dose Scale SUBQ SCH ×4 (08:42→22:00)
[2016-07-26] MEDS: Fluticasone-Salmeterol 500-50 Inhaler INHALATION SCH ×2 (08:43→21:19)
[2016-07-26] MEDS: Polyethylene Glycol (PEG) 17 Gm Powder PO SCH ×2 (08:44→21:19)
[2016-07-26] MEDS: lamoTRIgine 100 mg Tablet PO SCH ×2 (08:44→21:19)
[2016-07-26] MEDS: Pantoprazole 40 mg ER24 Tablet PO SCH ×2 (08:45→21:19)
[2016-07-26] MEDS: [UNRECOGNIZED DRUG - OTHER] PO SCH ×4 (08:48→15:32)
--- NOTE | 2016-07-26 09:12 | NUR ---
NUTRITION ASSESSMENT: ASSESS: 55YO F admit with pneumonia, weakness, constipation. Uncontrolled diabetes, pt receiving increased doses of insulin. PMHX: Type II Diabetes, COPD,CVA, CHF,DVT DIET: Diabetic Heart Healthy. PO 100%. S/P ST eval with no restrictions. LABS: Alb 2.6, Glu 245, MEDS: Reviewed GI:+BM 07/25; on aggressive bowel regimen WEIGHT: admit:109kg BMI: 36.4 EST.NEEDS: Obesity/COPD (22-25kcal/kg;1.5-1.8g/kgIBW) Kcal: 1012-0003 Pro: 95-115g NUTRITION DIAGNOSIS: (1) Altered nutrition related laboratory values related to uncontrolled diabetes as evidenced by glucose 245, A1c 10.6. INTERVENTION: (1) Attempted diabetic education 06/18--pt refused. MONITOR/EVALUATE: PO intake, lab values. F/U per moderate risk.
[2016-07-26] MEDS: Insulin GLARgine 100 Unit/mL Syringe SUBQ SCH (09:35)
--- NOTE | 2016-07-26 10:00 | PCM.PNMED ---
Subjective Date of Service July 26, 2016 Subjective pt denied n/v/abdominal pain, still constipated, but found to have c.diff positive in small last BM, no overt diarrhea intermittently coughing, white sputum denied SOB Exam Vital Signs Vital Sign - Last Date Time Temp Pulse Resp B/P Pulse Ox O2 Delivery O2 Flow Rate FiO2 07/26/16 09:06 36.8 95 18 119/68 94 Nasal Cannula 3.00 Intake and Output 07/25/16 07/25/16 07/26/16 Cumulative From/Thru 15:00 23:00 07:00 07/23/16 15:00 - 07/26/16 06:31 Intake Total 1983 ml 600 ml 9900 ml Output Total 1350 ml 600 ml 4050 ml Balance 633 ml 0 ml 5850 ml Intake Oral 1983 ml 600 ml 5487 ml IV Total 4413 ml Output Urine Total 1350 ml 600 ml 4050 ml # Voids 4 # Bowel Movements 1 1 Exam obese female, comfortably laying down on bed no JVD, MMM, no LAD RRR, nl s1, s2 no mrg mild crackles diffusely anteriorly, no wheezing S,ND,NT,normoactive BS+ warm, no edema, pulses 2/2 IVs and Medications Medications Reviewed: Medications were reviewed in detail Lab and Diagnostics Result Diagram: 07/26/16 0530 07/26/16529 Microbiology Blood cultures are negative at 24 hours Sputum culture is pending X-Rays, CTs and MRIs X-RAY CHEST ONE VIEW, PORTABLE 07/23 IMPRESSION: Right basilar opacity suggestive of pneumonia. Aspiration pneumonia cannot be excluded. Recommend interval followup to resolution and exclude presence of underlying mass lesion. Dictated by: Jackie Wing M.D. on 07/23/2016 at 16:42 Approved by: Jackie Wing M.D. on 07/23/2016 at 16:42 --- PROCEDURE: X-RAY ABDOMEN, ONE VIEW ([id number]) INDICATIONS: constipation TECHNIQUE: One view of the abdomen acquired. COMPARISON: None. FINDINGS: Surgical changes and devices: None. Bowel: Bowel gas pattern is normal. Moderate scattered stool. Soft tissues: No suspicious abdominal calcifications. Visualized solid organ contours appear normal in size. Bones: No suspicious bony lesions. IMPRESSION: Moderate scattered stool suggestive of mild constipation. No traction. Dictated by: Jackie Wing M.D. on 07/23/2016 at 16:42 Approved by: Jackie Wing M.D. on 07/23/2016 at 16:43 Cardiac Echo Impressions Echocardiogram Report Name: YOLIS LOBATO EStudy Date : 07/24/2016 Height: 6 8 in Hospital Exam Location: [facility] Weight: 2 39 lb Gender: Female BSA: 2.2 m2 : 1960 Age: 55 yrs BP: 102/5 6 mmHg Reason For Study: Possible Cardiomyopathy Performed By: Jia Chavez Referring Physician: ROSITA ALMAGUER Interpretation Summary The left ventricle is normal in size. Left ventricular systolic function is normal without focal wall motion abnormalities. The ejection fraction is estimated to be 60-65%. Assessment of diastolic parameters indicates normal left ventricular diastolic function and normal filling pressures. The right ventricle is normal in size and function. The right ventricular systolic pressure is estimated at 38 mmHg assuming a right atrial pressure of 3 mm Hg. The left atrial size is normal. Borderline right atrial enlargement. There is no significant valvular heart disease. No signficant changes in comparison with all 3 prior echo studies since 2014. Assessment & Plan Yolis Lobato is a 55 year old morbidly obese female with a complex medical history including recent CVA x2, chronic respiratory failure secondary to COPD, obstructive asthma, CHF, type II diabetes mellitus, diabetic neuropathy, previous upper extremity DVT s/p PICC line on Warfarin, seizure disorder, GERD and bipolar disorder who presents to [facility] emergency department via EMS complaining of generalized weakness #Healthcare associated pneumonia. Present on admission, met criteria for HCAP hospitalization within the last 90 days. Risk factors for MRSA and Pseudomonas. - pt is clinically improving with current tx, remained afebrile, less symptomatic, labs trends better. - continue Levaquin for empiric antibiotics (Patient allergic to Cephalosporin and PCN), vancomycin d/derrick 07/26 with negative MRSA swab -awaits Blood cultures, will consider ID consult, if clinically doesn't improve. #Generalized weakness. Present on admission, Multifactorial metabolic derangements and poor baseline function with deconditioning RLS, resting tremors , obesity. probable CVA in the past. -likely d/c to SNF upon d/c, order placed -daily PT to increase mobility #c.diff colitis, PCR+, likely superimposed with constipation -will continue bowel regimen until pt makes BM -trends stools, continue vanc po qid for total 14days #Hypokalemia. Present on admission, due to GI fluid loss -replete as needed #Insulin-dependent diabetes mellitus with peripheral neuropathy. better controlled 245glc in fasting. a1c10.6 -continue high dose correctional Lispro algorithm, [id number] lantus 07/24, 07/25, switch to 25unit this AM. -continuing Lyrica 150 mg bid -fsg qac, chronic, stable, resolved 7 Suspected obesity hypoventilation/KENAN on CPAP therapy, chronic. Presumed stable - Patient has own CPAP for use 8 COPD. Presumed stable - continuing Neb treatments - continue Budesonide, Fluticasone 9 History of seizures/Restless Leg syndrome, chronic. Presumed stable - continuing Mirapex, Topamax and Lamotrigine - Acetaminophen as needed for mild pain/fever/headache - Bowel regimen as needed - Antiemetic as needed Disposition: likely 1-2more days, SNF seems appropriate given initial presentation GI Prophylaxis: Proton Pump Inhibitor VTE Prophylaxis: Sub-Q Enoxaparin Resuscitation Status: CPR: Attempt Resuscitation Time spent 35min Lara Naranjo MD July 26, 2016 09:29
--- NOTE | 2016-07-26 10:52 | NUR ---
Wound note Dressing changed today after wound was mechanically debrided with gauze and saline. Redressed with ns moist 2x2 gauze and a dry gauze over top taped in place with hypafix tape. Nursing to change dressings daily, wound will recheck on this patient 07/30 if still in house, otherwise patient to follow up in Dr Fraga office for foot/wound care.
--- NOTE | 2016-07-26 14:53 | NUR ---
Called Stacy at [facility] [phone], let her a voicemail regarding this patient and needing more facilities out of [facility] that are contracted. Also made call again to [facility] and confirmed they will not take patient due to her insurance. Updated ADULT BASIC STUDIES TEACHER Addendum: 07/26/16 at 1516 by JOSÉ NG Stacy called back and is still stating [facility] are contracted. [facility] had patient in 2014 and they did not receive payment for that stay and can not take on liability for non payment and [facility] feels this is why they can not accept either. Faxed referral to [facility] in [place] as [facility] CM stated they are also contracted Updated ADULT BASIC STUDIES TEACHER
--- NOTE | 2016-07-26 15:06 | NUR ---
[facility] SNF cannot accept pt due to insurance SVETLANA Oliver
[2016-07-26] MEDS: Albuterol 2.5 mg/3 mL Inhalation Solution NEB PRN (20:13)
[2016-07-26] MEDS ORDERED: Insulin GLARgine 100 Unit/mL Syringe SUBQ SCH (21:00)
[2016-07-26] MEDS: DULoxetine 30 mg DR Capsule PO SCH (21:18)
[2016-07-26] MEDS: Tiotropium 18mcg/Cap 5 Capsule Inhaler Kit INHALATION SCH (21:19)
[2016-07-27] VITALS (12 sets, daily range): BP systolic 103–136; BP diastolic 48–79; PULSE 81–99; RESP 18–20; O2SAT 86–97
[2016-07-27] MEDS: Albuterol 2.5 mg/3 mL Inhalation Solution NEB PRN ×2 (02:01→11:16)
[2016-07-27] MEDS: 0.9% Sodium Chloride 1,000 ML IV SCH ×3 (02:41→16:05)
[2016-07-27] MEDS: Vancomycin 125 mg Oral Capsule PO SCH ×3 (05:51→17:26)
[2016-07-27 06:11] LABS: BASOPHILS % (AUTO) 0.2 % (0-3); EOSINOPHILS % (AUTO) 1.6 % (0-5); MONOCYTES % (AUTO) 8.7 % (4-12); Mean Corpuscular Hemoglobin 29.7 pg (27.0-35.0); Mean Corpuscular Volume 96.5 fL (81-100); NEUTROPHILS % (AUTO) 72.1 % (40-74); Platelet Count 679 bil/L (150-400)
--- NOTE | 2016-07-27 07:42 | NUR ---
O2/Pt refuses CPAP Pt desat to mid 80s when sleeping on O2 1.5-2l per NC or Oxy mask, CPAP with O2 6L applied by RT, which makes SPO2 90-92%. ARMY MANAGER monitoring. Pt wake up in the middle of night and found herself on CPAP, she was upset and tearful, states "I don't want to use CPAP" despite RN explained the rationale why CPAP was placed by RT. RT called per pt requests and explained to pt. Pt settle down.
[2016-07-27] MEDS: Insulin LISPRO High-Dose Scale SUBQ SCH ×4 (07:59→21:08)
[2016-07-27] MEDS: Insulin GLARgine 100 Unit/mL Syringe SUBQ SCH (08:01)
[2016-07-27] MEDS: lamoTRIgine 100 mg Tablet PO SCH ×2 (08:03→20:55)
[2016-07-27] MEDS: Pantoprazole 40 mg ER24 Tablet PO SCH ×2 (08:04→20:58)
[2016-07-27] MEDS: Polyethylene Glycol (PEG) 17 Gm Powder PO SCH ×2 (08:04→20:58)
[2016-07-27] MEDS: Fluticasone-Salmeterol 500-50 Inhaler INHALATION SCH ×2 (08:05→20:53)
[2016-07-27] MEDS: [UNRECOGNIZED DRUG - OTHER] PO SCH ×4 (11:00→17:26)
--- NOTE | 2016-07-27 14:42 | PCM.PNMED ---
Subjective Date of Service July 27, 2016 Subjective She is seen today in her room to follow up for pneumonia, asthma, tremor, heart failure. She continues to wheeze heavily. All nursing homes contacted so far have declined to contract with her insurance due to nonpayment 2 years ago when she was at [facility]. Hemoglobin is stable at 9.4. She remains quite tremulous although can be distracted from the tremor. Exam Vital Signs Vital Sign - Last Date Time Temp Pulse Resp B/P Pulse Ox O2 Delivery O2 Flow Rate FiO2 07/27/16 06:08 91 07/27/16 05:35 36.9 20 109/61 96 Nasal Cannula 6.00 Intake and Output 07/26/16 07/26/16 07/27/16 Cumulative From/Thru 15:00 23:00 07:00 07/23/16 15:00 - 07/27/16 05:04 Intake Total 2997 ml 1343 ml 28610 ml Output Total 1675 ml 5725 ml Balance 1322 ml 1343 ml 8515 ml Intake Oral 1450 ml 6937 ml IV Total 1547 ml 1343 ml 7303 ml Output Urine Total 1675 ml 5725 ml # Voids 4 # Bowel Movements 1 2 Exam She has mild distress from continued effort to breathe. Lungs are wheezing bilaterally Heart is regular rate and rhythm without murmur Extremities have no ankle edema Both hands are tremoring as are both of her feet. When tested she has no pill- rolling tremor. In other words when she concentrates her tremor goes away and when she is anxious it worsens. Lab and Diagnostics Result Diagram: 07/27/16 0547 07/27/16546 Microbiology Blood cultures are negative at 24 hours Sputum culture is pending X-Rays, CTs and MRIs X-RAY CHEST ONE VIEW, PORTABLE 07/23 IMPRESSION: Right basilar opacity suggestive of pneumonia. Aspiration pneumonia cannot be excluded. Recommend interval followup to resolution and exclude presence of underlying mass lesion. Dictated by: Jackie Wing M.D. on 07/23/2016 at 16:42 Approved by: Jackie Wing M.D. on 07/23/2016 at 16:42 --- PROCEDURE: X-RAY ABDOMEN, ONE VIEW ([id number]) INDICATIONS: constipation TECHNIQUE: One view of the abdomen acquired. COMPARISON: None. FINDINGS: Surgical changes and devices: None. Bowel: Bowel gas pattern is normal. Moderate scattered stool. Soft tissues: No suspicious abdominal calcifications. Visualized solid organ contours appear normal in size. Bones: No suspicious bony lesions. IMPRESSION: Moderate scattered stool suggestive of mild constipation. No traction. Dictated by: Jackie Wing M.D. on 07/23/2016 at 16:42 Approved by: Jackie Wing M.D. on 07/23/2016 at 16:43 Cardiac Echo Impressions Echocardiogram Report Name: YOLIS LOBATO EStudy Date : 07/24/2016 Height: 6 8 in Hospital Exam Location: [facility] Weight: 2 39 lb Gender: Female BSA: 2.2 m2 : 1960 Age: 55 yrs BP: 102/5 6 mmHg Reason For Study: Possible Cardiomyopathy Performed By: Jia Chavez Referring Physician: ROSITA ALMAGUER Interpretation Summary The left ventricle is normal in size. Left ventricular systolic function is normal without focal wall motion abnormalities. The ejection fraction is estimated to be 60-65%. Assessment of diastolic parameters indicates normal left ventricular diastolic function and normal filling pressures. The right ventricle is normal in size and function. The right ventricular systolic pressure is estimated at 38 mmHg assuming a right atrial pressure of 3 mm Hg. The left atrial size is normal. Borderline right atrial enlargement. There is no significant valvular heart disease. No signficant changes in comparison with all 3 prior echo studies since 2014. Assessment & Plan Yolis Lobato is a 55 year old morbidly obese female with a complex medical history including recent CVA x2, chronic respiratory failure secondary to COPD, obstructive asthma, CHF, type II diabetes mellitus, diabetic neuropathy, previous upper extremity DVT s/p PICC line on Warfarin, seizure disorder, GERD and bipolar disorder who presents to [facility] emergency department via EMS complaining of generalized weakness #Healthcare associated pneumonia. Present on admission, met criteria for HCAP hospitalization within the last 90 days. Risk factors for MRSA and Pseudomonas. - pt is clinically improving with current tx, remained afebrile, less symptomatic, labs trends better. - continue Levaquin for empiric antibiotics (Patient allergic to Cephalosporin and PCN), vancomycin d/derrick 07/26 with negative MRSA swab -awaits Blood cultures, will consider ID consult, if clinically doesn't improve. #Generalized weakness. Present on admission, Multifactorial metabolic derangements and poor baseline function with deconditioning RLS, resting tremors , obesity. probable CVA in the past. -likely d/c to SNF upon d/c, order placed -daily PT to increase mobility #c.diff colitis, PCR+, likely superimposed with constipation -will continue bowel regimen until pt makes BM -She is passing liquid stool but considers herself to be still constipated., continue vanc po qid for total 14days #Hypokalemia. Present on admission, due to GI fluid loss -replete as needed #Insulin-dependent diabetes mellitus with peripheral neuropathy. better controlled 245glc in fasting. a1c10.6 -continue high dose correctional Lispro algorithm, [id number] lantus 07/24, 07/25, switch to 25unit yesterday -continuing Lyrica 150 mg bid -fsg qac, chronic, stable, resolved 7 Suspected obesity hypoventilation/KENAN on CPAP therapy, chronic. Presumed stable - Patient has own CPAP for use 8 COPD. Presumed stable - continuing Neb treatments - continue Budesonide, Fluticasone 9 History of seizures/Restless Leg syndrome, chronic. Presumed stable - continuing Mirapex, Topamax and Lamotrigine 10 tremor - Continue Mysoline. Consider possible cause as Lyrica. 11 ADD - Continue Adderall. It does not look like she is getting her Vyvanse here. - Acetaminophen as needed for mild pain/fever/headache - Bowel regimen as needed - Antiemetic as needed Disposition: likely 1-2more days, SNF seems appropriate given initial presentation GI Prophylaxis: Proton Pump Inhibitor VTE Prophylaxis: Sub-Q Enoxaparin VTE Mechanical Devices: Intermittant Pneumatic CD Resuscitation Status: CPR: Attempt Resuscitation Kevin Mitchell MD July 27, 2016 09:15
--- NOTE | 2016-07-27 16:26 | NUR ---
IV Access IV found outside of patient. MD notified. Orders received to not place additional IV access. Tele removed. Patient informed of abx switched to PO.
[2016-07-27] MEDS: predniSONE 20 mg Tablet PO SCH (17:26)
--- NOTE | 2016-07-27 18:31 | NUR ---
Dressing change Changed right knee dressing and cleaned with saline. Change left foot wound dressing with wet-to-dry. No drainage on either wound.
[2016-07-27] MEDS: DULoxetine 30 mg DR Capsule PO SCH (21:01)
[2016-07-27] MEDS: Tiotropium 18mcg/Cap 5 Capsule Inhaler Kit INHALATION SCH (21:03)
[2016-07-28] MEDS: Vancomycin 125 mg Oral Capsule PO SCH ×5 (00:23→23:56)
[2016-07-28] MEDS: 0.9% Sodium Chloride 1,000 ML IV SCH (00:24)
[2016-07-28 04:40] VITALS: BP 113/66; PULSE 89; RESP 20; O2SAT 95
[2016-07-28 05:23] LABS: BASOPHILS % (AUTO) 0.1 % (0-3); EOSINOPHILS % (AUTO) 1.1 % (0-5); MONOCYTES % (AUTO) 5.5 % (4-12); Mean Corpuscular Hemoglobin 30.4 pg (27.0-35.0); Mean Corpuscular Volume 96.6 fL (81-100); NEUTROPHILS % (AUTO) 80.2 % (40-74); Platelet Count 655 bil/L (150-400)
[2016-07-28 05:42] LABS: Magnesium 2.2 mg/dL (1.6-2.6)
[2016-07-28 07:39] VITALS: PULSE 90; RESP 20; O2SAT 94
[2016-07-28] MEDS: Albuterol 2.5 mg/3 mL Inhalation Solution NEB PRN ×3 (07:39→22:54)
[2016-07-28] MEDS: Fluticasone-Salmeterol 500-50 Inhaler INHALATION SCH ×2 (08:38→22:06)
[2016-07-28] MEDS: lamoTRIgine 100 mg Tablet PO SCH ×2 (08:38→22:09)
[2016-07-28] MEDS: predniSONE 20 mg Tablet PO SCH (08:39)
[2016-07-28] MEDS: levoFLOXacin 750 mg Tablet PO SCH (08:39)
[2016-07-28] MEDS: Pantoprazole 40 mg ER24 Tablet PO SCH ×2 (08:39→21:56)
[2016-07-28] MEDS: [UNRECOGNIZED DRUG - OTHER] PO SCH ×4 (08:40→15:31)
[2016-07-28] MEDS: Insulin GLARgine 100 Unit/mL Syringe SUBQ SCH (08:41)
[2016-07-28] MEDS: Insulin LISPRO High-Dose Scale SUBQ SCH ×4 (08:47→22:22)
[2016-07-28] MEDS: Polyethylene Glycol (PEG) 17 Gm Powder PO SCH ×2 (09:45→21:56)
[2016-07-28] MEDS: VYVANSE 70 MG PO SCH (09:46)
[2016-07-28] MEDS: Fluticasone 0.05% 15 Spray/2 Gm 16 Gm Nasal Spray NASAL PRN (10:46)
--- NOTE | 2016-07-28 11:18 | PCM.PNMED ---
Subjective Date of Service July 28, 2016 Subjective She is seen today in her room to follow up her pneumonia, asthma, tremor, ADD. She will be resuming her Vyvanse today. Her wheezing seems to have improved after the prednisone was started yesterday. She was unable to keep IVs in safely due to her severe tremor yesterday and so she was changed to oral Levaquin and seems to be doing well. At this point she is approaching stability for [facility] to [facility] when that can be found. Her insurance is producing some barriers. Exam Vital Signs Vital Sign - Last Date Time Temp Pulse Resp B/P Pulse Ox O2 Delivery O2 Flow Rate FiO2 07/28/16 09:49 Supplement Oxygen 07/28/16 07:39 90 20 94 3.00 07/28/16 04:40 36.5 113/66 Intake and Output 07/27/16 07/27/16 07/28/16 Cumulative From/Thru 15:00 23:00 07:00 07/23/16 15:00 - 07/28/16 06:50 Intake Total 725 ml 3038 ml 718 ml 63434 ml Output Total 1380 ml 1600 ml 8705 ml Balance -655 ml 3038 ml -882 ml 79104 ml Intake Oral 725 ml 2072 ml 718 ml 68070 ml IV Total 966 ml 8269 ml Output Urine Total 1380 ml 1600 ml 8705 ml # Voids 3 7 # Bowel Movements 2 2 6 Exam On exam her heart is regular rate and rhythm without murmur Lungs are clear to auscultation bilaterally, with the wheezing from yesterday having resolved. Extremities have no ankle edema She has a significant restless leg condition going on and tremor of her upper extremities The right knee skin ulcer and the left foot plantar ulcer are much improved compared to the last time I saw them IVs and Medications Medications Reviewed: Medications were reviewed in detail Lab and Diagnostics Result Diagram: 07/28/16 0505 07/28/16 0505 Microbiology Blood cultures are negative at 24 hours Sputum culture is pending X-Rays, CTs and MRIs X-RAY CHEST ONE VIEW, PORTABLE 07/23 IMPRESSION: Right basilar opacity suggestive of pneumonia. Aspiration pneumonia cannot be excluded. Recommend interval followup to resolution and exclude presence of underlying mass lesion. Dictated by: Jackie Wing M.D. on 07/23/2016 at 16:42 Approved by: Jackie Wing M.D. on 07/23/2016 at 16:42 --- PROCEDURE: X-RAY ABDOMEN, ONE VIEW ([id number]) INDICATIONS: constipation TECHNIQUE: One view of the abdomen acquired. COMPARISON: None. FINDINGS: Surgical changes and devices: None. Bowel: Bowel gas pattern is normal. Moderate scattered stool. Soft tissues: No suspicious abdominal calcifications. Visualized solid organ contours appear normal in size. Bones: No suspicious bony lesions. IMPRESSION: Moderate scattered stool suggestive of mild constipation. No traction. Dictated by: Jackie Wing M.D. on 07/23/2016 at 16:42 Approved by: Jackie Wing M.D. on 07/23/2016 at 16:43 Cardiac Echo Impressions Echocardiogram Report Name: YOLIS LOBATO EStudy Date : 07/24/2016 Height: 6 8 in Hospital Exam Location: [facility] Weight: 2 39 lb Gender: Female BSA: 2.2 m2 : 1960 Age: 55 yrs BP: 102/5 6 mmHg Reason For Study: Possible Cardiomyopathy Performed By: Jia Chavez Referring Physician: ROSITA ALMGAUER Interpretation Summary The left ventricle is normal in size. Left ventricular systolic function is normal without focal wall motion abnormalities. The ejection fraction is estimated to be 60-65%. Assessment of diastolic parameters indicates normal left ventricular diastolic function and normal filling pressures. The right ventricle is normal in size and function. The right ventricular systolic pressure is estimated at 38 mmHg assuming a right atrial pressure of 3 mm Hg. The left atrial size is normal. Borderline right atrial enlargement. There is no significant valvular heart disease. No signficant changes in comparison with all 3 prior echo studies since 2014. Assessment & Plan Yolis Lobato is a 55 year old morbidly obese female with a complex medical history including recent CVA x2, chronic respiratory failure secondary to COPD, obstructive asthma, CHF, type II diabetes mellitus, diabetic neuropathy, previous upper extremity DVT s/p PICC line on Warfarin, seizure disorder, GERD and bipolar disorder who presents to [facility] emergency department via EMS complaining of generalized weakness #Healthcare associated pneumonia. Present on admission, met criteria for HCAP hospitalization within the last 90 days. Risk factors for MRSA and Pseudomonas. - pt is clinically improving with current tx, remained afebrile, less symptomatic, labs trends better. - continue Levaquin, now oral, for empiric antibiotics (Patient allergic to Cephalosporin and PCN), vancomycin d/derrick 07/26 with negative MRSA swab #Generalized weakness. Present on admission, Multifactorial metabolic derangements and poor baseline function with deconditioning RLS, resting tremors , obesity. probable CVA in the past. -likely d/c to SNF upon d/c, order placed -daily PT to increase mobility #c.diff colitis, PCR+, likely superimposed with constipation -will continue bowel regimen until pt makes BM -She is passing liquid stool but considers herself to be still constipated., continue vanc po qid for total 14days #Hypokalemia. Present on admission, due to GI fluid loss -Now up to 4.8. #Insulin-dependent diabetes mellitus with peripheral neuropathy. better controlled 245glc in fasting. a1c10.6 -continue high dose correctional Lispro algorithm, switch to 25unit Lantus several days ago -continuing Lyrica 150 mg bid -Blood sugars are in the 175 up to 275 range currently chronic, stable, resolved - Suspected obesity hypoventilation/KENAN on CPAP therapy, chronic. Presumed stable - Patient has own CPAP for use 8 COPD. Presumed stable - continuing Neb treatments - continue Budesonide, Fluticasone - Added prednisone due to heavy wheezing yesterday, and responding now. 9 History of seizures/Restless Leg syndrome, chronic. Presumed stable - continuing Mirapex, Topamax and Lamotrigine 10 tremor - Continue Mysoline. Consider Lyrica as the possible cause 11 ADD - Continue Adderall. Resume home dosing of Vyvanse here. 12 anemia of chronic disease 13 right knee and left plantar chronic skin ulcers - Acetaminophen as needed for mild pain/fever/headache - Bowel regimen as needed - Antiemetic as needed Disposition: likely 1 more day, SNF seems appropriate given initial presentation GI Prophylaxis: Proton Pump Inhibitor VTE Prophylaxis: Sub-Q Enoxaparin VTE Mechanical Devices: Intermittant Pneumatic CD Resuscitation Status: CPR: Attempt Resuscitation Kevin Mitchell MD July 28, 2016 10:41
[2016-07-28 14:31] VITALS: BP 109/62; PULSE 106; RESP 20; O2SAT 96
--- NOTE | 2016-07-28 14:37 | NUR ---
Social Work: Continued d/c planning Data: HEAT TREAT TECHNICIAN spoke with Ifeanyi from [place] [facility], he states that their person to review pt's insurance is not in until Friday and for UR specialist to follow up on Friday regarding if they can take this pt. He also states they have short term rooms and no technician terminal and repeater care rooms available. HEAT TREAT TECHNICIAN requested UR specialist refer pt to [facility] to see if they can accept pt. Plan: SNF options continue to be explored. [facility] to be referred, [facility] reviewing. HEAT TREAT TECHNICIAN will continue to follow. SVETLANA Oliver
[2016-07-28 14:39] VITALS: PULSE 103; RESP 20; O2SAT 94
--- NOTE | 2016-07-28 16:59 | NUR ---
Blood sugar/dressing Patient is alert and orientedX3. Able to make needs known. Blood sugar before dinner 348. Insulin given as ordered per sliding scale. Luis Felipe paged hospitalist and awaiting call back if any new orders. Patient changed dressing to left plantar and states," i like to do it every 2 days." No sign and symptoms of infection noted to the wound on left plantar.
[2016-07-28] MEDS ORDERED: Insulin LISPRO 300 Unit/3 mL Inj SUBQ ONE (17:05)
[2016-07-28] MEDS: DULoxetine 30 mg DR Capsule PO SCH (21:56)
[2016-07-28] MEDS: Tiotropium 18mcg/Cap 5 Capsule Inhaler Kit INHALATION SCH (22:07)
[2016-07-28 22:47] VITALS: BP 122/73; PULSE 95; RESP 20; O2SAT 94
[2016-07-28 22:54] VITALS: PULSE 91; RESP 20; O2SAT 95
[2016-07-29] VITALS (9 sets, daily range): BP systolic 109–128; BP diastolic 58–69; PULSE 92–107; RESP 20–24; O2SAT 89–97
[2016-07-29] MEDS: Vancomycin 125 mg Oral Capsule PO SCH ×3 (05:52→17:57)
--- NOTE | 2016-07-29 06:01 | NUR ---
Cough Pt having sob due to severe cough. Tessalon pearles administered. Upon re-evaluation pt is still having intermittent severe cough. MD notified, no further orders yet. Denies chest pain. Currently on 3LPM o2 via NC and has been saturating 90-91%. Breathing Tx administered by RT PRN. Hourly rounding in effect.
[2016-07-29 06:09] LABS: BASOPHILS % (AUTO) 0.2 % (0-3); EOSINOPHILS % (AUTO) 1.6 % (0-5); MONOCYTES % (AUTO) 7.4 % (4-12); Mean Corpuscular Volume 97.5 fL (81-100); NEUTROPHILS % (AUTO) 76.2 % (40-74); Platelet Count 662 bil/L (150-400)
[2016-07-29] MEDS: Albuterol 2.5 mg/3 mL Inhalation Solution NEB PRN (07:28)
[2016-07-29] MEDS: Insulin LISPRO High-Dose Scale SUBQ SCH ×4 (08:00→21:56)
--- NOTE | 2016-07-29 08:15 | PCM.PNMED ---
Subjective Date of Service July 29, 2016 Subjective Feels like her pneumonia is worse because she notes more "raspy" in her throat. Continues to feel short of breath even at rest. Still with fairly significant cough and she also notes wheezing, not sure that it is improved with prednisone. She also still feels quite weak and does not feel able to return home. Says she is still unable to walk even a short distance. Says that at home she takes her Lantus 3 times a day, dose varies from 27 and 37 units each time depending on her blood sugars so probably at least 90 units total per day. Continues to have liquid brown stool but some formed elements. Exam Vital Signs Vital Sign - Last Date Time Temp Pulse Resp B/P Pulse Ox O2 Delivery O2 Flow Rate FiO2 07/29/16 07:28 105 24 94 Nasal Cannula 3.00 07/29/16 05:58 37.1 109/66 Intake and Output 07/28/16 07/28/16 07/29/16 Cumulative From/Thru 15:00 23:00 07:00 07/23/16 15:00 - 07/29/16 00:30 Intake Total 1772 ml 12335 ml Output Total 375 ml 9080 ml Balance 1397 ml 73416 ml Intake Oral 1772 ml 31091 ml IV Total 0 ml 8269 ml Output Urine Total 375 ml 9080 ml # Voids 1 8 # Bowel Movements 3 9 Exam General: Alert and oriented, sitting upright in bed eating breakfast, prominent tremors of upper extremities and restless legs. Heart: Regular Lungs: Scattered mild inspiratory and expiratory rhonchi, moderately prolonged expiratory phase with faint expiratory wheeze Abdomen: Soft, non-tender Extremities: No pedal edema IVs and Medications Medications Reviewed: Medications were reviewed in detail Lab and Diagnostics Result Diagram: 07/29/16 0545 07/29/1645 Microbiology Blood cultures are negative at 24 hours Sputum culture is pending X-Rays, CTs and MRIs X-RAY CHEST ONE VIEW, PORTABLE 07/23 IMPRESSION: Right basilar opacity suggestive of pneumonia. Aspiration pneumonia cannot be excluded. Recommend interval followup to resolution and exclude presence of underlying mass lesion. Dictated by: Jackie Wing M.D. on 07/23/2016 at 16:42 Approved by: Jackie Wing M.D. on 07/23/2016 at 16:42 --- PROCEDURE: X-RAY ABDOMEN, ONE VIEW ([id number]) INDICATIONS: constipation TECHNIQUE: One view of the abdomen acquired. COMPARISON: None. FINDINGS: Surgical changes and devices: None. Bowel: Bowel gas pattern is normal. Moderate scattered stool. Soft tissues: No suspicious abdominal calcifications. Visualized solid organ contours appear normal in size. Bones: No suspicious bony lesions. IMPRESSION: Moderate scattered stool suggestive of mild constipation. No traction. Dictated by: Jackie Wing M.D. on 07/23/2016 at 16:42 Approved by: Jackie Wing M.D. on 07/23/2016 at 16:43 Cardiac Echo Impressions Echocardiogram Report Name: YOLIS LOBATO EStudy Date : 07/24/2016 Height: 6 8 in Hospital Exam Location: [facility] Weight: 2 39 lb Gender: Female BSA: 2.2 m2 : 1960 Age: 55 yrs BP: 102/5 6 mmHg Reason For Study: Possible Cardiomyopathy Performed By: Jia Chavez Referring Physician: ROSITA ALMAGUER Interpretation Summary The left ventricle is normal in size. Left ventricular systolic function is normal without focal wall motion abnormalities. The ejection fraction is estimated to be 60-65%. Assessment of diastolic parameters indicates normal left ventricular diastolic function and normal filling pressures. The right ventricle is normal in size and function. The right ventricular systolic pressure is estimated at 38 mmHg assuming a right atrial pressure of 3 mm Hg. The left atrial size is normal. Borderline right atrial enlargement. There is no significant valvular heart disease. No signficant changes in comparison with all 3 prior echo studies since 2014. Assessment & Plan Yolis Lobato is a 55 year old morbidly obese female with a complex medical history including recent CVA x2, chronic respiratory failure secondary to COPD, obstructive asthma, CHF, type II diabetes mellitus, diabetic neuropathy, previous upper extremity DVT s/p PICC line on Warfarin, seizure disorder, GERD and bipolar disorder who presents to [facility] emergency department via EMS complaining of generalized weakness #Healthcare associated pneumonia. Present on admission, met criteria for HCAP hospitalization within the last 90 days. Risk factors for MRSA and Pseudomonas. - continue Levaquin, now oral, for empiric antibiotics (Patient allergic to Cephalosporin and PCN), vancomycin d/derrick 07/26 with negative MRSA swab - Currently on oxygen at 3 L per nasal cannula which is her usual at home #Generalized weakness. Present on admission, Multifactorial metabolic derangements and poor baseline function with deconditioning RLS, resting tremors , obesity. probable CVA in the past. -likely d/c to SNF upon d/c, but difficulty gaining approval from insurance -daily PT to increase mobility #c.diff colitis, PCR+, -will continue bowel regimen until pt makes BM -She is passing liquid stool but considers herself to be still constipated., continue vanc po qid for total 14days (started July 26) #Hypokalemia. Present on admission, due to GI fluid loss, now resolved after some potassium replacement #Insulin-dependent diabetes mellitus with peripheral neuropathy. a1c10.6 -Blood sugars mostly in the 300s yesterday although 230 this morning -continue high dose correctional Lispro algorithm, - 25unit Lantus each morning started on July 26 but she takes Lantus 3 times a day at home for a total of at least 90 units daily so will add 10 units at bedtime -continuing Lyrica 150 mg bid chronic, stable, resolved - Suspected obesity hypoventilation/KENAN on CPAP therapy, chronic. Presumed stable - Patient has own CPAP for use 8 COPD. Presumed stable - continuing Neb treatments but does have mild wheezing so we will change to 4 times a day scheduled instead of just as needed - Added prednisone due to heavy wheezing july 27 and responding (although she denies) - continue Budesonide, Fluticasone 9 History of seizures/Restless Leg syndrome, chronic. Presumed stable - continuing Mirapex, Topamax and Lamotrigine 10 tremor - Continue Mysoline. Consider Lyrica as the possible cause 11 ADD - Continue Adderall. Resume home dosing of Vyvanse here. 12 anemia of chronic disease 13 right knee and left plantar chronic skin ulcers - Acetaminophen as needed for mild pain/fever/headache - Bowel regimen as needed - Antiemetic as needed Disposition: SNF when can be arranged GI Prophylaxis: Proton Pump Inhibitor VTE Prophylaxis: Sub-Q Enoxaparin VTE Mechanical Devices: Intermittant Pneumatic CD Resuscitation Status: CPR: Attempt Resuscitation Franca Voss MD July 29, 2016 08:15
[2016-07-29] MEDS: VYVANSE 70 MG PO SCH (08:30)
[2016-07-29] MEDS: Pantoprazole 40 mg ER24 Tablet PO SCH ×2 (09:12→21:28)
[2016-07-29] MEDS: levoFLOXacin 750 mg Tablet PO SCH (09:12)
[2016-07-29] MEDS: Polyethylene Glycol (PEG) 17 Gm Powder PO SCH ×2 (09:13→21:29)
[2016-07-29] MEDS: predniSONE 20 mg Tablet PO SCH (09:13)
[2016-07-29] MEDS: [UNRECOGNIZED DRUG - OTHER] PO SCH ×4 (09:27→16:33)
[2016-07-29] MEDS: Fluticasone-Salmeterol 500-50 Inhaler INHALATION SCH ×2 (09:28→21:29)
[2016-07-29] MEDS: lamoTRIgine 100 mg Tablet PO SCH ×2 (09:28→21:28)
[2016-07-29] MEDS: Insulin GLARgine 100 Unit/mL Syringe SUBQ SCH ×2 (09:29→21:56)
[2016-07-29] MEDS: Albuterol 2.5 mg/3 mL Inhalation Solution NEB SCH ×3 (11:22→19:22)
--- NOTE | 2016-07-29 20:29 | NUR ---
Oxygen Patient changed from nasal cannula to 3 Ltr oxymask due to O2 sats 88%. O2 sats improved to 93%.
[2016-07-29] MEDS: DULoxetine 30 mg DR Capsule PO SCH (21:28)
[2016-07-29] MEDS ORDERED: Furosemide 10 mg/mL 4 mL Inj IVPUSH ONE (21:55)
[2016-07-29] MEDS: Tiotropium 18mcg/Cap 5 Capsule Inhaler Kit INHALATION SCH (23:19)
[2016-07-30] VITALS (10 sets, daily range): BP systolic 98–124; BP diastolic 60–74; PULSE 91–109; RESP 20–28; O2SAT 86–94
[2016-07-30] MEDS: Vancomycin 125 mg Oral Capsule PO SCH ×4 (00:33→18:15)
[2016-07-30] MEDS: Albuterol 2.5 mg/3 mL Inhalation Solution NEB PRN (03:12)
--- NOTE | 2016-07-30 06:06 | NUR ---
NOC/SOB pt reports of sob and states that it feels like drowning. Upon auscultation noted rales/crackles and audible wheezes. MD notified and ordered Lasix 40mg IV. Pt reports of feeling better after the administration of lasix. Auscultation still have mild rales/crackles and wheezes. Breathing Tx provided by RT PRN. Hourly rounding in effect, HS meds administered as scheduled. Hourly rounding in effect, VSS and has been afebrile overnight.
[2016-07-30] MEDS: Albuterol 2.5 mg/3 mL Inhalation Solution NEB SCH ×4 (07:29→20:14)
[2016-07-30] MEDS: predniSONE 20 mg Tablet PO SCH (08:28)
[2016-07-30] MEDS: lamoTRIgine 100 mg Tablet PO SCH ×2 (08:30→21:04)
[2016-07-30] MEDS: Polyethylene Glycol (PEG) 17 Gm Powder PO SCH ×2 (08:30→20:44)
[2016-07-30] MEDS: [UNRECOGNIZED DRUG - OTHER] PO SCH ×4 (08:33→16:41)
[2016-07-30] MEDS: levoFLOXacin 750 mg Tablet PO SCH (08:34)
[2016-07-30] MEDS: Pantoprazole 40 mg ER24 Tablet PO SCH ×2 (08:34→20:45)
[2016-07-30] MEDS: VYVANSE 70 MG PO SCH (08:36)
[2016-07-30] MEDS: Fluticasone-Salmeterol 500-50 Inhaler INHALATION SCH ×2 (08:38→20:44)
[2016-07-30] MEDS: Insulin GLARgine 100 Unit/mL Syringe SUBQ SCH ×2 (08:38→21:04)
[2016-07-30] MEDS: Insulin LISPRO High-Dose Scale SUBQ SCH ×4 (08:39→21:04)
--- NOTE | 2016-07-30 09:01 | DRSVH ---
PROCEDURE: X-RAY CHEST, TWO VIEWS ([id number]) INDICATIONS: pneumonia TECHNIQUE: 2 views of the chest were acquired. COMPARISON: [facility], CR, CHEST 1VW (PORTABLE), 05/21/2014, 19:30. [facility], CR, XR CHEST 1VW (PORTABLE), 07/23/2016, 16:15. [facility], CR, XR CHEST 2VW, 06/05, 14:28. FINDINGS: Surgical changes and devices: Lower cervical spine fixation hardware and epigastric surgical clips re demonstrated. Lungs and pleura: Interval increase in diffuse, widespread bilateral interstitial and multifocal air space opacities. Small right pleural effusion. No pneumothorax. Mediastinum: Mediastinal contours are normal. Heart size is normal. Bones and chest wall: No suspicious bony abnormalities. Soft tissues appear unremarkable. IMPRESSION: 1. Findings suggesting worsening multifocal pneumonia although pulmonary edema would be included in t he differential. Underlying mass within the right lung base cannot be excluded and continued radiogr aphic surveillance to resolution is recommended. Dictated by: Elio Bell Jluis Interpreted: Suleman Penny MD on 07/30/2016 at 8:58 Transcribed by: ANNA on 07/30/2016 at 9:01 Approved by: Suleman Penny M.D. on 07/30/2016 at 10:29
[2016-07-30] MEDS: Potassium Chloride 20 mEq/15 mL 15mL Oral Soln PO SCH ×3 (09:08→16:47)
--- NOTE | 2016-07-30 10:38 | PCM.PNMED ---
Subjective Date of Service July 30, 2016 Subjective Still feeling poorly, weak and "dizzy" when she tries to get up. She says her congestion improved last evening after Lasix and she requests to resume her usual Lasix 120 mg each morning and hydrochlorothiazide 50 mg each morning. She says these are for "COPD". She denies congestive heart failure or pedal edema in the past. Exam Vital Signs Vital Sign - Last Date Time Temp Pulse Resp B/P Pulse Ox O2 Delivery O2 Flow Rate FiO2 07/30/16 09:13 36.4 97 24 124/67 92 Nasal Cannula 2.50 Intake and Output 07/29/16 07/29/16 07/30/16 Cumulative From/Thru 15:00 23:00 07:00 07/23/16 15:00 - 07/30/16 05:50 Intake Total 200 ml 675 ml 500 ml 63649 ml Output Total 350 ml 775 ml 1800 ml 09144 ml Balance -150 ml -100 ml -1300 ml 9863 ml Intake Oral 200 ml 675 ml 500 ml 74879 ml IV Total 8269 ml Output Urine Total 775 ml 9855 ml Urine/Stool Mix 350 ml 1800 ml 2150 ml # Voids 8 # Bowel Movements 2 11 Exam General: Alert and oriented, sitting up in chair,no acute distress Heart: Regular Lungs: decreased breath sounds throughout but not taking deep breath, bases clear, no wheeze, occasional mild scattered coarse resp sounds Abdomen: Soft, non-tender Extremities: No pedal edema IVs and Medications Medications Reviewed: Medications were reviewed in detail Lab and Diagnostics Result Diagram: 07/29/16 0545 07/29/1645 Microbiology Blood cultures are negative at 24 hours Sputum culture is pending X-Rays, CTs and MRIs X-RAY CHEST ONE VIEW, PORTABLE 07/23 IMPRESSION: Right basilar opacity suggestive of pneumonia. Aspiration pneumonia cannot be excluded. Recommend interval followup to resolution and exclude presence of underlying mass lesion. Dictated by: Jackie Wing M.D. on 07/23/2016 at 16:42 Approved by: Jackie Wing M.D. on 07/23/2016 at 16:42 --- PROCEDURE: X-RAY ABDOMEN, ONE VIEW ([id number]) INDICATIONS: constipation TECHNIQUE: One view of the abdomen acquired. COMPARISON: None. FINDINGS: Surgical changes and devices: None. Bowel: Bowel gas pattern is normal. Moderate scattered stool. Soft tissues: No suspicious abdominal calcifications. Visualized solid organ contours appear normal in size. Bones: No suspicious bony lesions. IMPRESSION: Moderate scattered stool suggestive of mild constipation. No traction. Dictated by: Jackie Wing M.D. on 07/23/2016 at 16:42 Approved by: Jackie Wing M.D. on 07/23/2016 at 16:43 Cardiac Echo Impressions Echocardiogram Report Name: YOLIS LOBATO EStudy Date : 07/24/2016 Height: 6 8 in Hospital Exam Location: [facility] Weight: 2 39 lb Gender: Female BSA: 2.2 m2 : 1960 Age: 55 yrs BP: 102/5 6 mmHg Reason For Study: Possible Cardiomyopathy Performed By: Jia Chavez Referring Physician: ROSITA ALMAGUER Interpretation Summary The left ventricle is normal in size. Left ventricular systolic function is normal without focal wall motion abnormalities. The ejection fraction is estimated to be 60-65%. Assessment of diastolic parameters indicates normal left ventricular diastolic function and normal filling pressures. The right ventricle is normal in size and function. The right ventricular systolic pressure is estimated at 38 mmHg assuming a right atrial pressure of 3 mm Hg. The left atrial size is normal. Borderline right atrial enlargement. There is no significant valvular heart disease. No signficant changes in comparison with all 3 prior echo studies since 2014. Assessment & Plan Yolis Lobato is a 55 year old morbidly obese female with a complex medical history including recent CVA x2, chronic respiratory failure secondary to COPD, obstructive asthma, CHF, type II diabetes mellitus, diabetic neuropathy, previous upper extremity DVT s/p PICC line on Warfarin, seizure disorder, GERD and bipolar disorder who presents to [facility] emergency department via EMS complaining of generalized weakness # Healthcare associated pneumonia. Present on admission, met criteria for HCAP hospitalization within the last 90 days. Risk factors for MRSA and Pseudomonas. - Currently on oral Levaquin (Patient allergic to Cephalosporin and PCN), vancomycin d/derrick 07/26 (received July 23-) with negative MRSA swab - Chest x-ray today worse, now multifocal infiltrates - consult Dr. Yen, infectious disease - Currently on oxygen at 2-5-3 L per nasal cannula,her usual at home is 3 L - Swallowing evaluation by speech therapy on July 23 did not show signs of aspiration # Generalized weakness. Present on admission, Multifactorial metabolic derangements and poor baseline function with deconditioning RLS, resting tremors , obesity. probable CVA in the past. -likely d/c to SNF upon d/c, but difficulty gaining approval from insurance -daily PT to increase mobility # c.diff colitis, PCR+, -continue vanc po qid for total 14days (started July 26) # Hypokalemia. Present on admission, due to GI fluid loss, now resolved after some potassium replacement # Insulin-dependent diabetes mellitus with peripheral neuropathy. a1c10.6 -Blood sugars mostly in the 100s-200s now (prev 300s) - 25unit Lantus each morning started on July 26 and then increased to 40 July 29. Also added 10 units at HS July 29 (she takes Lantus 3 times a day at home for a total of at least 90 units daily) -continue high dose correctional Lispro algorithm, -continuing Lyrica 150 mg bid # Suspected obesity hypoventilation/KENAN on CPAP therapy, chronic. Presumed stable - Patient has own CPAP for use # COPD. Presumed stable - continuing Neb treatments but does have mild wheezing so we will change to 4 times a day scheduled instead of just as needed - Added prednisone due to heavy wheezing july 27 and responding (although she denies) - continue Budesonide, Fluticasone # History of seizures/Restless Leg syndrome, chronic. Presumed stable - continuing Mirapex, Topamax and Lamotrigine # tremor - Continue Mysoline. Consider Lyrica as the possible cause # ADD - Continue Adderall. Resume home dosing of Vyvanse here. # anemia of chronic disease # right knee and left plantar chronic skin ulcers - Acetaminophen as needed for mild pain/fever/headache - Bowel regimen as needed - Antiemetic as needed Disposition: SNF once medically stable and if insurance will authorize GI Prophylaxis: Proton Pump Inhibitor VTE Prophylaxis: Sub-Q Enoxaparin VTE Mechanical Devices: Intermittant Pneumatic CD Resuscitation Status: CPR: Attempt Resuscitation Franca Voss MD July 30, 2016 10:38 Franca Voss MD July 30, 2016 10:38
--- NOTE | 2016-07-30 10:42 | NUR ---
Called and spoke with [facility] wellness coordinator at [facility] [phone] and asked her to check in with [facility] business office about authorization on this patient. Updated [facility] Addendum: 07/30/16 at 1119 by JOSÉ NG [facility] wellness coordinator does not have an appropriate bed for this patient. Called and left message for Stacy at [facility], we have 3 denials from our locals SNFs. Asked for call back regarding SNF in [facility]. Updated [facility] [employer] [facility]
--- NOTE | 2016-07-30 13:16 | NUR ---
Pain Pt states pain in shoulders 10/10 but is refusing pain medication. Stated "Tylenol doesn't work for me and I don't want to look like a drug addict with other medications." Encouraged pt to use ice and/or position changes.
--- NOTE | 2016-07-30 13:27 | NUR ---
Wound Note Patient seen at bedside for dressing change and wound care at her left foot. Patient is notably more tremulous today than I have seen her in the past, this probably accounts for her new ulceration at her right medial heal which is likely from abrasion and shear due to her tremor , so I would consider this a new stage 2 PI, it measures 3 cms L x 2 cm W x 0.1 cm D. It drains minimally and is without signs or symptoms of infection at this time. This was cleaned with saline and redressed with calmoseptine and an adhesive foam dressing taped in place. Patient also presents with two non blanchable red areas at her right ortega approx 3 cm in diameter. Foam dressing was placed over her right lower knee ulcer after it was cleaned also. Left plantar 1st met ulcer is cleaned with saline and redressed with saline moist 2x2 gauze and then a dry 2x2 gauze and taped in place, there is erythema at this great toe but no purulence is noted, would suggest consult patients multifold operator Dr Cervantes to see about any possible needed diagnostics to rule out an infectious process at the left great toe.
--- NOTE | 2016-07-30 13:47 | NUR ---
Spoke with Brina SHARMA for [facility] and she is happy to review referral and may have bed tomorrow. Faxed referral to [phone]
--- NOTE | 2016-07-30 14:15 | NUR ---
Requested order from hospitalist (via cook page) to discuss HH. Order has not yet been placed and SW is unable to discuss HH with pt until order is placed. DORY contacted Kristian Kumar who stated that pt will not be accepted at SNF because PT reports pt ambulated 50ft on 07/28. On 07/29 PT, states that pt needs SNF placement for 4x weeks. DORY will work with pt on returning with HH. DORY confirmed Kristian is contracted with [facility] and [facility]. SVETLANA Talley
--- NOTE | 2016-07-30 14:17 | NUR ---
Social Work: Continued Discharge Planning DAP: Requested order from hospitalist (via cook page) to discuss HH. Order has not yet been placed and SW is unable to discuss HH with pt until order is placed. DORY contacted Kristian Kumar who stated that pt will not be accepted at SNF because PT reports pt ambulated 50ft on 07/28. On 07/29 PT, states that pt needs SNF placement for 4x weeks. DORY will work with pt on returning with HH. DORY confirmed Kristian is contracted with [facility] and [facility]. DORY will continue to follow. SVETLANA Talley
--- NOTE | 2016-07-30 17:48 | CONS ---
[address] [address] CONSULTATION REPORT PATIENT: JAILENE LOBATO : 1960 MR#: [id number] ADMIT: 07/23/2016 JOB ID: [id number] DATE OF SERVICE: 07/30/[address] Drake for this timely consult. REASON FOR CONSULTATION: Bilateral pulmonary infiltrates worsening in spite of appropriate antibiotics. HISTORY OF PRESENT ILLNESS: The patient is a 55-year-old woman of almost unmanageable complexity. She suffers from obesity, gait disorder to the point that she cannot walk without a walker, possible recent cerebrovascular accident though a thorough workup at [facility] failed to disclose the lesion, bipolar disorder, OCD, seizure disorder, history of DVT, history of severe asthma with underlying COPD requiring constant home oxygen, sleep apnea, diabetes with diabetic retinopathy and multiple diabetic foot infections, history of bilateral ankle osteomyelitis per the patient, hyperlipidemia and bilateral foot drop. She has undergone surgeries including Jayce fundoplication and cervical fusion among others. The patient is admitted on this occasion from home with a variety of symptoms which are hard to link together. She reports that she had some sweats but no fever or chills before she came and, at that point, had some brown sputum which was increased over her baseline sputum production. This was associated with profound weakness to the point she could not arise from a chair which was part of the reason she was admitted as well as bladder incontinence, constipation and just generally increasing shortness of breath. Upon admission, she was found to have what appeared to be a new right-sided pneumonia which could represent unilateral pulmonary edema or infiltrate. She was started on IV vancomycin which she got for a couple of days as well as oral levofloxacin which continued through until today which is day 8 of therapy. On admission, she had no fever but did have an unexplained leukocytosis which has since resolved. During the course of this admission, on one day she had three stools after her constipation finally resolved. One of these stools was checked and was shown to be by PCR C. diff positive, but the patient basically had almost nothing in the way of diarrhea and currently has no diarrheal symptoms at all while receiving now oral vancomycin. ID consultation is requested regarding the need for additional antibiotics and, if so, which ones. The patient tells us today she has no fevers, chills, or sweats. Her cough is now much diminished over admission and has gone from brown to a bit of yellow. She does not have pleuritic chest pain. She no longer has diarrhea. She is now getting strong enough to get out of bed to use a commode, but is still not back to her normal state of very limited physical activity. She is not having nausea, vomiting, as noted, and no longer has any significant GI symptoms though she does remain short enough of breath to require oxygen, but this is her baseline. PAST MEDICAL HISTORY: 1. Possible recent cerebrovascular accident in June 2016. Workup at [facility] negative though she continues to have a left-sided hemiparesis. 2. Obesity. 3. Limited ambulation for which she uses a walker due to general debility. 4. Bipolar OCD disorder. 5. Migraine headaches. 6. Seizures. 7. History of DVT. 8. Diabetes mellitus. 9. Diabetic neuropathy with history of severe diabetic foot infections including osteomyelitis. 10. COPD requiring CPAP and continuous oxygen. 11. Prolonged QTc interval. 12. History of Jayce fundoplication. 13. History of multiple surgeries on the spine including cervical fusion. ALLERGIES: 1. SULFA DRUGS. 2. CEPHALOSPORINS. 3. AMONG OTHERS. SOCIAL HISTORY: The patient is a lifetime nonsmoker. Lives at home with her . She does not consume significant alcohol. She is disabled by virtue of the many problems listed above. She grew up in this area and has not traveled significantly in the recent past. FAMILY HISTORY: Negative for tuberculosis, denying 1st and 2nd-degree relatives. REVIEW OF SYSTEMS: At this point, she has no significant headache, no acute visual change, and no sore throat, though she does feel that her mucous membranes are parched. She has no new neck pain. She reports her cough and shortness of breath are much better on admission but are still present at somewhere near her respiratory compensated baseline. No chest pain per se. No nausea or vomiting. She came in with constipation, very briefly had diarrhea and now has neither. She does not have a Rincon catheter and states she is able to get up to use the commode at the bedside. She is noticing some redness and skin breakdown in the intertriginous areas of the groin. She has tremendous restless leg symptoms and her feet move constantly to the point that she is developing ulcerations on her heels from constant motion of her legs in bed. She is unaware of anything that makes this amazing restless legs syndrome better or worse. She has weakness on her left side diffusely which started back in June which led to her transfer to [facility] which was eventually unrevealing. Remainder of the review of systems was negative. PHYSICAL EXAMINATION: Reveals an afebrile woman. Temp 36.2, pulse 103, respiratory rate 24, blood pressure 122/64, she is saturating well on face mask oxygen. She does not appear to be in discomfort though her legs are moving around at a tremendous clip, more on the right than the left. Head without trauma. Eyes without conjunctivitis. Nose normal. Oral cavity is notable for a dry erythematous tongue especially anteriorly. Teeth are in reasonable repair. No thrush is noted. The patient has a fused neck, decreased range of motion but no adenopathy or JVD is noted. She does not have any indwelling lines or pacers that I can palpate. Her lungs are notable for decreased breath sounds bilaterally which are quite distant, more so at the bases with some crackles at the bases especially on the right. Cardiac tones: Regular rate and rhythm without murmur. Her cardiac tones are quite distant with the isolation stethoscope we need to use. The patient's abdomen is quite obese. No organomegaly is appreciated. She has a significant pannus as well. I do not detect any evidence of ascites. No flank tenderness. She does not have a Rincon catheter. She is wearing a brief diaper contraption. In the intertriginous folds of the groin there is intense erythema consistent with satellite lesions consistent with Nette. She does not have a Rincon. She does not have suprapubic fullness. She does not have any inguinal adenopathy that one could appreciate. On the right lower extremity, there are three lesions, one in the upper thigh and two on the ortega that are erythematous and about 3 cm in circumference. She states these are from trauma when she has been falling or rubbing her legs together violently with her restless legs syndrome. The left leg does not have such lesions. Neurologically, the patient has about 3/5 strength on the left and 5/5 on the right. Her legs are in constant motion due to what she has described as restless legs syndrome, but the left leg much less so. She does have a peripheral neuropathy as she reports in the feet and ankles. No obvious skin rashes noted other than the ones just described. LABORATORY STUDIES: Include a white count which came in at 19,000 with mild left shift and quickly normalized. Yesterday, a white count was 9000, today pack to 12,000. There is a mild left shift, 76% segs, platelet 662, creatinine 0.77. LFTs were normal. Urinalysis normal. Micro studies include negative blood cultures. A MRSA screen of the nares negative. Sputum with moderate normal doyle. The Gram stain of the sputum was unimpressive with only a few polys seen. Respiratory viral PCR negative. Stool PCR was positive for C. diff. IMAGING: Was reviewed on the view screen. Her chest x-ray initially showed a right basilar opacity which could be focal pneumonia, aspiration or unilateral CHF. That was done on admission a week ago. A follow-up chest x-ray today which was carefully compared on the view screen shows what appears to be increasing multifocal pneumonia though pulmonary edema could certainly present with such a picture. IMPRESSION: This is a case of a bewildering complexity with multiple overlapping medical problems. Whether the patient had a pneumonia when she was admitted remains a little unclear to me, though she did have leukocytosis and report of sweats and purulent sputum with the levofloxacin she has received over the last eight days. These symptoms have gone away, though she is left with a bit of leukocytosis. At this point, she has received eight days of levofloxacin and I think it is reasonable to go ahead and stop her antibiotics. Whether or not she ever had C. diff is also debatable. She has basically a positive test by PCR, but very little in the way of symptoms and this suggests that she may be colonized with a toxigenic strain, but is not likely to be producing any toxin. Nonetheless, in the [place] we go ahead and treat these isolates. RECOMMENDATIONS: 1. Will DC levofloxacin today. 2. The patient should complete a 14-day course of oral vancomycin in a dose of 125 q.i.d. 3. Will need to obtain a BNP to see how much of these infiltrates might represent congestive heart failure. 4. Legionella and pneumococcal urine antigens will be obtained. 5. A pro calcitonin will be done tomorrow morning to compare to our prior value which was rather indeterminate. 6. Serum cryptococcal antigen should be done to rule out the unlikely possibility that this patient has cryptococcal disease. 7. ID will continue to follow this interesting patient with you going forward, and I wish to thank Dr. Drake for this timely consult.
--- NOTE | 2016-07-30 18:30 | NUR ---
Med Pt's scheduled Topomax wasn't given at 0830, med didn't come up from pharmacy until 1800. Pharmacy was called three times for med, due the late arrival of the med it was non-admin, as pt has an 2030 dose.
--- NOTE | 2016-07-30 18:46 | NUR ---
Mentation patient is alert and oriented X3. Able to make needs known. C/o pain general, offered Tylenol and patient refused. Blood sugar before dinner 152, insulin given as ordered by student nurse. physical therapy at bed side this shift. Stable oxygen at 3.0L oxy mask. small bowel movement today per patient report. Call light with in reach for safety.
--- NOTE | 2016-07-30 20:33 | NUR ---
Dry Mouth P: Oral pharynx extremely dry due to oxygen flow at 3 liter per nasal cannula. Patient complains of this discomfort. I: Patient offered mouth moisturizer and ice chips to help moisten her mouth and help with discomfort and dryness. E. Patient stated, "that the mouth moisturizer and ice chips help relieved the dryness and discomfort." S: Call light within reach, bed low and locked in position. Side rails X3 up. Pillow placed at the end of the bed to help patient prevent from hitting her legs due to Restless legs. Patient instructed to call if she wants to get up.
[2016-07-30] MEDS: Tiotropium 18mcg/Cap 5 Capsule Inhaler Kit INHALATION SCH (20:44)
[2016-07-30] MEDS: DULoxetine 30 mg DR Capsule PO SCH (20:45)
[2016-07-31] VITALS (10 sets, daily range): BP systolic 102–118; BP diastolic 57–70; PULSE 75–112; RESP 20–24; O2SAT 92–98
[2016-07-31] MEDS: Vancomycin 125 mg Oral Capsule PO SCH ×4 (00:14→17:31)
--- NOTE | 2016-07-31 03:32 | NUR ---
Restless legs Patient has been sleeping intermittently, but legs are constantly moving, very active. Administered HS meds as ordered. Repositioned for comfort and safety. Asked patient if her legs are this active at home,and she replied that they are. Asked what she does to alleviate the movement, she said nothing different than what we are doing. Will continue to monitor and pass onto day RN to address with MD.
[2016-07-31] MEDS: Albuterol 2.5 mg/3 mL Inhalation Solution NEB PRN (05:06)
[2016-07-31] MEDS: Albuterol 2.5 mg/3 mL Inhalation Solution NEB SCH ×4 (07:44→19:41)
[2016-07-31] MEDS: Fluticasone 0.05% 15 Spray/2 Gm 16 Gm Nasal Spray NASAL PRN (08:58)
[2016-07-31] MEDS: Fluticasone-Salmeterol 500-50 Inhaler INHALATION SCH ×2 (08:58→20:06)
[2016-07-31] MEDS: Potassium Chloride 20 mEq/15 mL 15mL Oral Soln PO SCH ×3 (08:59→17:31)
[2016-07-31] MEDS: Insulin GLARgine 100 Unit/mL Syringe SUBQ SCH ×2 (09:00→21:47)
[2016-07-31] MEDS: Insulin LISPRO High-Dose Scale SUBQ SCH ×4 (09:00→21:46)
[2016-07-31] MEDS: [UNRECOGNIZED DRUG - OTHER] PO SCH ×4 (09:01→15:34)
[2016-07-31] MEDS: Pantoprazole 40 mg ER24 Tablet PO SCH ×2 (09:02→20:09)
[2016-07-31] MEDS: lamoTRIgine 100 mg Tablet PO SCH ×2 (09:02→20:08)
[2016-07-31] MEDS: Polyethylene Glycol (PEG) 17 Gm Powder PO SCH ×2 (09:03→20:07)
[2016-07-31] MEDS: predniSONE 20 mg Tablet PO SCH (09:03)
[2016-07-31] MEDS: VYVANSE 70 MG PO SCH (09:23)
--- NOTE | 2016-07-31 10:26 | PROG NOTE ---
[address] [address] PROGRESS NOTE PATIENT: JAILENE LOBATO : 1960 MR#: [id number] ADMIT: 07/23/2016 JOB ID: [id number] DATE: 07/31/2016 REASON FOR FOLLOWUP: Unexplained pulmonary infiltrates, leukocytosis and extremely inflammatory condition in a patient with underlying diabetes and asthma who was C. diff PCR positive. INTERVAL HISTORY: Overnight, the patient reports she continues to be short of breath and have minimal cough, but this is not a lot different than her baseline. She has had no fevers or chills overnight, and reports she has had one loose bowel movement. No significant abdominal pain. She continues to have the dramatic restless legs process. PHYSICAL EXAMINATION: Reveals an afebrile woman, who is using nasal oxygen, breathing comfortably and moving her legs continuously. She is afebrile. Temp 36.8, blood pressure 118/70, pulse in the 80s, respiratory rate about 20, saturating well on 3 L. She has no apparent skin rash, but she does have a fading erythematous annular lesions on her right lower extremity as well as a large nodule on her right 2nd distal finger. Oral cavity unremarkable. Lungs: Crackles on the right lower lung field are noted again. Cardiac tones without new murmur. Abdomen relatively benign. The legs are moving continuously, the right more than the left. LABORATORIES: Include white count 2 days ago, 12,000, and it has not been repeated. Creatinine 2 days ago was 0.77. BNP we ordered yesterday was 340, which is just above normal in our lab. The procalcitonin was 0.13, down from 0.5 several days ago. The urine Legionella and pneumococcal antigens were negative. Cryptococcal antigen is pending. Recall that blood cultures have been negative. A respiratory viral PCR was negative. Sputum culture was negative. MRSA screen of the nares was positive, and the stool PCR was positive despite really not much in the way of diarrhea. The last chest x-ray was done yesterday, shows multifocal infiltrates, infection versus pulmonary edema. Also recall that the patient has extremely high CRP and sedimentation rate, with are unexplained. IMPRESSION: This is an absolutely strange case of a woman with many underlying medical problems but primarily psychiatric disorders, diabetes with neuropathy, and chronic obstructive pulmonary disease requiring home oxygen. She presented this time with possible pneumonia and was treated with a prolonged course of levofloxacin which we ended yesterday. Despite that, her chest x-ray is not all that much better and she still has extremely high CRP and sed rate which are unexplained. Her multifocal infiltrates are interesting and do not appear to be entirely due to fluid overload or congestive heart failure, and I wonder about the possibility of an autoimmune process such as lupus, rheumatoid arthritis, sarcoid, eosinophilic pneumonia, or some other process causing these infiltrates which might be neither infection nor congestive failure. RECOMMENDATIONS: 1. Will continue the patient on a 14 day course of oral vancomycin. 2. No additional broad-spectrum antibiotics are indicated at this time. 3. We have ordered CBC, CRP and sed rate for tomorrow morning because these have not been checked for a while. 4. Will order a CT scan noncontrast of the chest and see what is going. 5. Will order some additional basic screening labs for vasculitis and/or autoimmune processes including GREG, rheumatoid factor, an JESSIE level for sarcoid. If the GREG is positive, will pursue additional studies. 6. If the CT scan of the chest shows unexplained infiltrates, I would consult Pulmonary. 7. We have added some nystatin to her current med list for topical therapy to the intertriginous candidiasis.
--- NOTE | 2016-07-31 10:56 | PCM.PNMED ---
Subjective Date of Service July 31, 2016 Subjective Feels tired from physical therapy, has shoulder pain but this is her usual chronic pain, denies shortness of breath, no other current complaints. Reports having a normal bowel movement earlier today. Exam Vital Signs Vital Sign - Last Date Time Temp Pulse Resp B/P Pulse Ox O2 Delivery O2 Flow Rate FiO2 07/31/16 10:10 112 Nasal Cannula 3.00 07/31/16 07:44 20 95 07/31/16 04:47 36.8 118/70 Intake and Output 07/30/16 07/30/16 07/31/16 Cumulative From/Thru 15:00 23:00 07:00 07/23/16 15:00 - 07/31/16 06:20 Intake Total 2787 ml 200 ml 06890 ml Output Total 2100 ml 950 ml 65507 ml Balance 687 ml -750 ml 9800 ml Intake Oral 2787 ml 200 ml 05509 ml IV Total 0 ml 8269 ml Output Urine Total 2100 ml 950 ml 88998 ml Urine/Stool Mix 2150 ml # Voids 1 9 # Bowel Movements 4 1 16 Exam General: Alert and oriented, no acute distress, still with freq movements of all extrem Heart: Regular Lungs: Clear anteriorly and laterally Abdomen: Soft, non-tender Extremities: No pedal edema IVs and Medications Medications Reviewed: Medications were reviewed in detail Lab and Diagnostics Result Diagram: 07/29/16 0545 07/29/16 0545 Microbiology Blood cultures are negative at 24 hours Sputum culture is pending X-Rays, CTs and MRIs X-RAY CHEST ONE VIEW, PORTABLE 07/23 IMPRESSION: Right basilar opacity suggestive of pneumonia. Aspiration pneumonia cannot be excluded. Recommend interval followup to resolution and exclude presence of underlying mass lesion. Dictated by: Jackie Wing M.D. on 07/23/2016 at 16:42 Approved by: Jackie Wing M.D. on 07/23/2016 at 16:42 --- PROCEDURE: X-RAY ABDOMEN, ONE VIEW ([id number]) INDICATIONS: constipation TECHNIQUE: One view of the abdomen acquired. COMPARISON: None. FINDINGS: Surgical changes and devices: None. Bowel: Bowel gas pattern is normal. Moderate scattered stool. Soft tissues: No suspicious abdominal calcifications. Visualized solid organ contours appear normal in size. Bones: No suspicious bony lesions. IMPRESSION: Moderate scattered stool suggestive of mild constipation. No traction. Dictated by: Jackie Wing M.D. on 07/23/2016 at 16:42 Approved by: Jackie Wing M.D. on 07/23/2016 at 16:43 Cardiac Echo Impressions Echocardiogram Report Name: YOLIS LOBATO EStudy Date : 07/24/2016 Height: 6 8 in Hospital Exam Location: [facility] Weight: 2 39 lb Gender: Female BSA: 2.2 m2 : 1960 Age: 55 yrs BP: 102/5 6 mmHg Reason For Study: Possible Cardiomyopathy Performed By: Jia Chavez Referring Physician: ROSITA ALMAGUER Interpretation Summary The left ventricle is normal in size. Left ventricular systolic function is normal without focal wall motion abnormalities. The ejection fraction is estimated to be 60-65%. Assessment of diastolic parameters indicates normal left ventricular diastolic function and normal filling pressures. The right ventricle is normal in size and function. The right ventricular systolic pressure is estimated at 38 mmHg assuming a right atrial pressure of 3 mm Hg. The left atrial size is normal. Borderline right atrial enlargement. There is no significant valvular heart disease. No signficant changes in comparison with all 3 prior echo studies since 2014. Assessment & Plan Yolis Lobato is a 55 year old morbidly obese female with a complex medical history including recent CVA x2, chronic respiratory failure secondary to COPD, obstructive asthma, CHF, type II diabetes mellitus, diabetic neuropathy, previous upper extremity DVT s/p PICC line on Warfarin, seizure disorder, GERD and bipolar disorder who presents to [facility] emergency department via EMS complaining of generalized weakness # Healthcare associated pneumonia. Present on admission, met criteria for HCAP hospitalization within the last 90 days. Risk factors for MRSA and Pseudomonas. - IV Vancomycin July 23- then DC'd with negative MRSA swab - IV Levaquin followed by oral, total of 8 days, DC'd yesterday by Dr Yen - Chest x-ray yesterday worse, now multifocal infiltrates - Currently on oxygen at 2-5-3 L per nasal cannula,her usual at home is 3 L - Swallowing evaluation by speech therapy on July 23 did not show signs of aspiration - Dr. Yen's consult yesterday and follow up today much appreciated -- he's not sure she had bacterial pneumonia but regardless doesn't need further antibiotics for this -- repeat procalcitonin is 0.13, down from 0.5 -- urine Legionella and pneumococcal antigens he ordered yesterday were negative -- ordered Serum cryptococcal antigen which is pending --BNP slightly above normal so less likely that CHF is causing multifocal infiltrates -- ordered CBC, CRP and sed rate for tomorrow morning -- ordered a CT scan noncontrast of the chest (if shows unexplained infiltrates consult Pulmonary) -- ordered some additional basic screening labs for vasculitis and/or autoimmune processes including GREG, rheumatoid factor, an JESSIE level for sarcoid. If the GREG is positive, will pursue additional studies. Addendum: Will consult pulm (Icalled Dr Verduzco who agrees to see patient today) as chest CT shows: Moderately severe to severe patchy bilateral pneumonia with the most pronounced area of alveolar consolidation and formation of air bronchograms at the posterior right lower lobe. There may be small pleural effusions but without contrast the exact delineation of the pleural and lung parenchymal margins at the right lower lobe is not possible. # Generalized weakness. Present on admission, Multifactorial metabolic derangements and poor baseline function with deconditioning RLS, resting tremors , obesity. probable CVA in the past. -likely d/c to SNF upon d/c, but difficulty gaining approval from insurance -daily PT to increase mobility # c.diff colitis, PCR+, -continue vanc po qid for total 14days (started July 26) # Hypokalemia. Present on admission, due to GI fluid loss, now resolved after some potassium replacement # Insulin-dependent diabetes mellitus with peripheral neuropathy. a1c10.6 -Blood sugars mostly in the 100s - 25unit Lantus each morning started on July 26 and then increased to 40 July 29. Also added 10 units at HS July 29 (she takes Lantus 3 times a day at home for a total of at least 90 units daily) -continue high dose correctional Lispro algorithm, -continuing Lyrica 150 mg bid # Suspected obesity hypoventilation/KENAN on CPAP therapy, chronic. Presumed stable - Patient has own CPAP for use # COPD. Presumed stable - continuing Neb treatments but does have mild wheezing so we will change to 4 times a day scheduled instead of just as needed - Added prednisone due to heavy wheezing july 27 and responding (although she denies) - continue Budesonide, Fluticasone # History of seizures/Restless Leg syndrome, chronic. Presumed stable - continuing Mirapex, Topamax and Lamotrigine # tremor - Continue Mysoline. Consider Lyrica as the possible cause # ADD - Continue Adderall. Resume home dosing of Vyvanse here. # anemia of chronic disease # right knee and left plantar chronic skin ulcers - Acetaminophen as needed for mild pain/fever/headache - Bowel regimen as needed - Antiemetic as needed Disposition: SNF once medically stable and if insurance will authorize GI Prophylaxis: Proton Pump Inhibitor VTE Prophylaxis: Sub-Q Enoxaparin VTE Mechanical Devices: Intermittant Pneumatic CD Resuscitation Status: CPR: Attempt Resuscitation Franca Voss MD July 31, 2016 10:55 Franca Voss MD July 31, 2016 10:55
--- NOTE | 2016-07-31 11:29 | NUR ---
NUTRITION FOLLOW-UP: ASSESS: 55 YO Female admitted with pneumonia, weakness, constipation. Per notes, pt remains weak. PO intake has been good at 75-100% of most meals since admit. PMHX: Type II Diabetes, COPD,CVA, CHF,DVT, Morbid obesity, obstructive asthma, diabetic neuropathy, seizure disorder, GERD. DIET: Diabetic Heart Healthy. PO 75-100%. LABS: Reviewed. Alb 2.8, Glu 217 MEDS: Reviewed GI:BM x 1 (07/31) WEIGHT: 108.5 kg. admit:109 kg BMI: 36.4 IBW: 63.64 kg. EST.NEEDS: Obesity/COPD Kcal: 3016-9938 (22-25 kcal/kg BW) Pro: 75-95 g (1.2-1.5 g/kg IBW) NUTRITION DIAGNOSIS: (1) Altered nutrition related laboratory values related to uncontrolled diabetes as evidenced by glucose 245, A1c 10.6 --PERSISTS. INTERVENTION: (1) Attempted diabetic education 06/18--Pt declined. MONITOR/EVALUATE: PO intake, labs, nutritional status. Follow per moderate nutritional risk guidelines.
--- NOTE | 2016-07-31 14:33 | NUR ---
Social Work-readiness for discharge: Data:EMR reviewed. Pt is on day 8 of hospitalization for pneumonia per H&P. Pt is not medically stable for discharge at this time. PT is recommending SNF, but pt is ambulating 60ft. All the facilities in [facility] either do not contract with insurance or have denied pt. Pt is unwilling to go out of [facility]. UR specialist spoke with [employer] yesterday and they state that they likely will not authorize SNF placement because pt is walking 50 plus feet. order received for HH-RN,PT,OT, and [employer]. SW followed up with pt at bedside, SW role explained. SW explained the above information. SW explained SNF is not an option and pt will have to return home with services. Pt is agreeable to this plan, SW provided pt with HH choice list. Only agency in [facility] that contracts with insurance is [facility], pt is agreeable. DORY called Lynda at [facility] and provided her with referral for RN,PT,OT, and [employer]CH[employer], access given. Pt states she has home O2 through [facility] and also has a fww at home. SW called pt's Jaciel [phone] to confirm plan of home with HH services through [facility], is agreeable and states he will provide transport home. F2F will need to be completed by . SW will continue to follow. Assessment:Pt who would benefit form HH. Plan:Pt to discharge home when medically stable via POV. Referral made to [facility] for RN,OT,PT, and SOFTWARE SOLUTIONS ARCHITECT. F2F will need to be completed by . DORY will continue to follow. SVETLANA Roldan
--- NOTE | 2016-07-31 14:36 | DRSVH ---
PROCEDURE: CT CHEST WITHOUT CONTRAST ([id number]) INDICATIONS: abn CXR w/o explanation TECHNIQUE: Noncontrast 5 mm thick sections acquired from the pulmonary apices to the posterior costophrenic angl es. 7 mm thick coronal and sagittal MIP reformats were then acquired. For radiation dose reduction, the following was used: automated exposure control, adjustment of mA and/or kV according to patient size. COMPARISON: None. FINDINGS: Image quality: Excellent. Lungs and pleura: There is a moderately severe to severe bilateral patchy pneumonia pattern, with de nse alveolar consolidation at the right lower lobe posteriorly with air bronchograms within. No pleu ral effusions or pneumothorax. Central and peripheral airways are patent and normal in caliber. Mediastinum: Heart size is normal. No pericardial effusion. No mediastinal adenopathy by size crit eria. Thoracic aorta and central pulmonary arteries are normal in size. Esophagus is normal in [place]. No hiatal hernia. Bones and chest wall: No suspicious bony lesions. No vertebral body compression fractures. No axil danielle or supraclavicular adenopathy by size criteria. Thyroid gland is poorly visualized. Abdomen: Visualized upper abdominal solid organs and bowel loops appear normal in the absence of con trast. IMPRESSION: Moderately severe to severe patchy bilateral pneumonia with the most pronounced area of a lveolar consolidation and formation of air bronchograms at the posterior right lower lobe. There may be small pleural effusions but without contrast the exact delineation of the pleural and lung parenc hymal margins at the right lower lobe is not possible. Dictated by: Suleman Penny M.D. on 07/31/2016 at 14:33 Approved by: Suleman Penny M.D. on 07/31/2016 at 14:35
--- NOTE | 2016-07-31 14:50 | NUR ---
choice list provided. SVETLANA Roldan
[2016-07-31] MEDS: Tiotropium 18mcg/Cap 5 Capsule Inhaler Kit INHALATION SCH (20:06)
[2016-07-31] MEDS: DULoxetine 30 mg DR Capsule PO SCH (20:08)
--- NOTE | 2016-07-31 20:14 | CONS ---
[address] [address] CONSULTATION REPORT PATIENT: JAILENE LOBATO : 1960 MR#: [id number] ADMIT: 07/23/2016 JOB ID: [id number] DATE OF SERVICE: 07/31/2016 REQUESTING PHYSICIAN: Franca Voss M.D. REASON FOR CONSULTATION: Pulmonary infiltrates. HISTORY OF PRESENT ILLNESS: The patient is a 55-year-old, female who was admitted on July 23, 2016 for weakness and bladder incontinence. However, the patient tells us that the night prior to admission, she had a sweat. Not quite sure whether she had a fever. Next day was coughing up brown phlegm. No particular problem with shortness of breath. However, she was concerned about severe bronchitis. The patient's recent history dates back to early June. She says she developed severe bronchitis. Describes a cough productive of yellow phlegm. Maybe some shortness of breath. Cough worsened. Noted some wheezing and presented to the hospital. Subsequently had a neurologic event consisting of left-sided weakness resulting in transfer to [facility] for evaluation. No etiology was forthcoming. The patient states the weakness on the left side persists maybe a little bit better. Also had problems with word-finding. In any case, she was home about a month before developing the sweat and the cough productive of brown phlegm. There was no chest pain, either pleuritic or otherwise. She states her breathing now is back to normal. Feels she is back to baseline. Pulmonary history dates back to her teenage years. Developed possibly an asthma condition. Details unclear. States she was never admitted for lung problems, though a multitude of other problems presented themselves. She was placed on oxygen about five years ago because of "COPD." Is a lifelong nonsmoker, however. The patient for an unknown period of time has been using a nebulizer with both albuterol and ipratropium. Uses it about three times a day. Has had a problem with weight. Her weight escalated to about 302 which was the heaviest she ever has been. Her 10-year-old son a number of years ago. Weight went down to about 237. However, with recent events her weight has risen though only slightly, weighing maybe 240. She states she has problems lying flat as the lower down she goes the more she coughs which results in wheezing and shortness of breath. Was given a CPAP machine some time in the past, maybe as long as 10 years ago. Believes the CPAP is set at 19. She is not quite sure why she got this machine, possibly due to snoring. EXPOSURE HISTORY: No known exposure to fumes or solvents. Did some stitching in the past. In the remote past did some painting with enamel paints but that has not been for 10 years. Currently spends her time mostly at home. No exposure to dust, fumes, or solvents. Not quite sure how she spends her time. Pets: A Sheltie dog. A number of years ago, she noted some rats around the home. Removed them with one application of rat poison. She has not seen them since. GEOGRAPHIC HISTORY: The patient has lived in [place], moving to [place] about 23 years ago as her had a change in his occupation. Travel: None. SMOKING HISTORY: None. MEDICATIONS: Pulmonary medicines: 1. Albuterol nebulized. 2. Atrovent nebulized. 3. Azelastine nasal spray. 4. Prednisone tablet on titrating dose. Not sure if she is taking that. 5. Has a ProAir inhaler. 6. Spiriva inhaler. 7. Symbicort inhaler. Also listed on her medication list: 1. Aspirin. 2. Insulin. 3. Codeine. 4. Cymbalta. 5. Fenofibrate. 6. Fluoxetine. 7. Humalog. 8. Humulin-R. 9. Hydrochlorothiazide. 10. Klor-Con. 11. Lamotrigine. 12. Lasix. 13. Loratadine. 14. Lyrica. 15. Metolazone. 16. MultiVites. 17. Nystatin. 18. Pantoprazole. 19. Prednisone. 20. Primidone. 21. Requip. 22. Simvastatin. 23. Topamax. 24. Tussin. 25. Vyvanse. ALLERGIES: 1. CONTRAST MEDIA with anaphylactic reaction listed. 2. SULFA with rash and itching. 3. IODINE, rash. 4. KETOROLAC, paranoia. 5. MEPERIDINE, paranoia and asthma. 6. POVIDINE. 7. causes rash and itching. 8. SHELLFISH causes a rash. 9. TROMETHAMINE, unknown reaction. Also allergic to fragrances and seafood though the latter is unknown reaction. REVIEW OF SYSTEMS: The patient had severe heartburn. Actually underwent a Jayce fundoplication about 10 years ago. That was extremely effective. However, some of the symptoms are starting to return. However, she is controlling them well with proton pump inhibitor. Has heartburn maybe once a month. She is not sure what proton pump inhibitor nor how frequently she takes it as her doles out the medications. Suffers from diabetes. Has diabetic neuropathy. Has a sore on her left foot which she attributes to an ill-fitting brace. Also has a lesion on her right Achilles area, again attributed to an ill-fitting brace. Listed on her past medical history is congestive heart failure. However, recent echocardiogram shows mild elevation of the right ventricular pressure but no other significant abnormalities. Also mentioned is upper extremity DVT from PICC placement in the past. She has no known heart disease but did say she had a problem on an EKG, once calling it "Q-something." The remainder of the past medical history, review of systems taken from the chart. Is having a bit of diarrhea but only having two loose stools a day after multiple evacuants given for chronic constipation. OBJECTIVE: Temperature 36.6, pulse 93-100, respiratory rate 20 to 24, blood pressure 107/57, O2 sat on 3 L by OxyMask is 94%. I and O shows cumulative balance 9.8 L positive on her eight day stay so far. General appearance: Well developed, moderately obese, female sitting upright in bed with head of bed elevated about 80 degrees. Wearing an aerosolizer mask. Has been wearing a cannula. Currently receiving treatment with albuterol and ipratropium. Gave a relatively good history, devoid of some details. After prolonged questioning, broke down crying, apologizing for not being more precise with her answers. Had a very coarse tremor of her hands and feet. Spoke easily and fluently. Eyes: Conjunctivae pink and moist. Nose and throat could not be examined. Neck is supple. Thyroid not palpable. Chest: Fair breath sounds bilaterally. No use of accessory muscles. Left lung field was clear. Right lung had maybe a mild decrease in breath sounds at the right base with some rather coarse crackles at the base. finer in the right mid lung field with upper right lung field being clear. Heart: Regular rhythm. Heart tones seem normal. Abdomen is soft. Nondistended. Nontender. Extremities: No clubbing, cyanosis, nor pretibial edema. Some excoriations, left pretibial area and right knee, secondary to the fall at the time of her left-sided weakness. States the lesions on her knee have not healed very well. There are bandages covering the area of the right Achilles and the left forefoot due to the possible maladjusted brace that she wears on both lower extremities. LABORATORY DATA: Shows a white count of 12,200 with 76 polymorphonuclears, 13 lymphs, 7 monos, 1.6 eosinophils. Hemoglobin stable at 9.7, platelet count stable at 662,000. That was of July 29, 2016. Chemistry from July 29, 2016 shows sodium 137, potassium 4.4, chloride 99, CO2 is 26, BUN 14, creatinine 0.7, glucose 217 with values ranging from 167-337. Calcium 8.6, magnesium 2, total bilirubin 0.2, AST of 20, ALT 16, alkaline phos 84. Total protein 5.4 with albumin of 2.8. Serology for GREG, rheumatoid factor, and other collagen vascular diseases pending. Urine for Legionella antigen is negative. Urine for Strep pneumoniae is negative. Stool positive for C. diff. toxin though minimal diarrhea associated with it. Nasopharyngeal smear for viral respiratory panel by PCR is negative. Sputum Gram stain shows few polys, a few mixed doyle, growing only mixed doyle. Blood cultures negative for five days. Chest x-ray on admission showed a right lower lung field opacity. Repeat film showed widespread interstitial and multifocal airspace opacities. CT of the chest done earlier today shows diffuse patchy pneumonia problem with dense consolidation in right lower lobe with air bronchograms. Without contrast, cannot evaluate for pulmonary emboli. The patient has received a course of broad-spectrum antibiotics, and currently receiving a 14-day course of oral vancomycin for the C. difficile PCR being positive. ASSESSMENT: Multiple pulmonary infiltrates. Symptomatically, the patient is doing better. She is oxygenating fairly well on 3 L of oxygen. However, I think it is important that we find out her CO2 on as if she is hypercarbic it might account for a number of her findings. With regard to the infiltrates, it appears that the usual infections have been ruled out. Given her neurologic problems, would worry about aspiration as a possible cause of her problems. Also, vasculitides, namely some of the ANCA positive vasculitides or antiphospholipid syndrome, can have diverse manifestations. Churg-Leilani can present with an asthma-like condition, often associated with eosinophilia. She is producing some yellow phlegm at intervals. Might try to get some sputum for eosinophils. Of course, there are other infections we might be missing though rather extensive evaluation has been completed. However, I do not find any exposures that would warrant an evaluation at this time. hypersensitivity pneumonitis always enters the pictures of these patients. I do not have a real good exposure history for hypersensitivity pneumonitis. However, her previous infection last month might have resulted in development of cryptogenic organizing pneumonia difficult to diagnose without a lung biopsy done surgically. The patient with a multitude of medical problems. Cannot rule out problems associated with her medications which are rather extensive and some of the medications redundant presumably she is not taking all of these but rather will need to get together with her to find out what indeed she is inhaling and ingesting. Cannot rule out DVT. Certainly with her weight and sedentary lifestyle, she is a set up for DVT. Unable to use contrast for the CT scan. Will check the legs with Doppler studies. PLAN: 1. Arterial blood gases. 2. Have RT call Lisa Terry regarding her CPAP setup. 3. Spirometry. 4. Speech eval for aspiration. 5. Blood work to consist of an ANCA panel, IgE, hypersensitivity pneumonitis panel, ANCA IgE. 6. Sputum for eosinophils.
[2016-08-01] MEDS: Vancomycin 125 mg Oral Capsule PO SCH ×4 (01:39→17:29)
[2016-08-01 03:35] VITALS: BP 104/61; PULSE 85; RESP 22; O2SAT 94
[2016-08-01 06:21] LABS: BASOPHILS % (AUTO) 0.1 % (0-3); MONOCYTES % (AUTO) 7.2 % (4-12); Mean Corpuscular Hemoglobin 29.6 pg (27.0-35.0); Mean Corpuscular Volume 96.2 fL (81-100); NEUTROPHILS % (AUTO) 74.8 % (40-74); Platelet Count 591 bil/L (150-400)
[2016-08-01 06:51] LABS: ERYTHROCYTE SEDIMENTATION RATE 117 mm/hr (0-40)
[2016-08-01] MEDS: Albuterol 2.5 mg/3 mL Inhalation Solution NEB SCH ×4 (07:26→19:54)
[2016-08-01 07:30] VITALS: PULSE 90; RESP 20; O2SAT 95
[2016-08-01] MEDS: Fluticasone-Salmeterol 500-50 Inhaler INHALATION SCH ×2 (08:10→20:34)
[2016-08-01] MEDS: Polyethylene Glycol (PEG) 17 Gm Powder PO SCH ×2 (08:11→20:48)
[2016-08-01] MEDS: Insulin GLARgine 100 Unit/mL Syringe SUBQ SCH ×2 (08:12→20:55)
[2016-08-01] MEDS: VYVANSE 70 MG PO SCH (08:12)
[2016-08-01] MEDS: Insulin LISPRO High-Dose Scale SUBQ SCH ×4 (08:14→22:32)
[2016-08-01] MEDS: Pantoprazole 40 mg ER24 Tablet PO SCH ×2 (08:15→20:45)
[2016-08-01] MEDS: lamoTRIgine 100 mg Tablet PO SCH ×2 (08:15→20:40)
[2016-08-01] MEDS: [UNRECOGNIZED DRUG - OTHER] PO SCH ×4 (08:16→16:43)
[2016-08-01] MEDS: Potassium Chloride 20 mEq/15 mL 15mL Oral Soln PO SCH ×3 (08:18→17:28)
[2016-08-01] MEDS: predniSONE 20 mg Tablet PO SCH (08:18)
[2016-08-01 09:13] LABS: Cryptococcal Ag Negative (Negative)
--- NOTE | 2016-08-01 09:31 | NUR ---
CODING EDUCATOR consultation received from Dr. Verduzco, due to concern for aspiration on Chest CT Pt has had previous bedside swallow evaluation which have indicated no s/s of aspiration on trials. The pt has reported choking on emesis. Pt has risk of silent aspiration due to COPD, and risk of reflux related aspiration due to hx of esophageal problems. A barium swallow or barium esophagram may be warranted to assess each potential etiology. Discussed with Dr. Verduzco and Dr. Almanza.
--- NOTE | 2016-08-01 11:02 | DRSVH ---
PROCEDURE: US VENOUS LEG DUPLEX BILATERAL INDICATIONS: evaluate for DVT TECHNIQUE: Real-time imaging, as well as color and pulse Doppler interrogation, were performed of the deep veins of both legs from the inguinal ligament to the popliteal fossa. COMPARISON: None. FINDINGS: The deep veins are normally compressible, and free of intraluminal thrombus. Color and pu lse Doppler demonstrate normal phasic intravascular flow. There is normal augmentation response to d istal compression maneuver. IMPRESSION: No deep venous thrombosis identified within either the left or right lower extremities. Dictated by: Elio Bell [facility] Interpreted: Emory Brown MD on 08/01/2016 at 11:01 Transcribed by: TANMAY on 08/01/2016 at 11:01 Approved by: Emory Brown M.D. on 08/01/2016 at 13:05
--- NOTE | 2016-08-01 11:09 | PCM.PNMED ---
Subjective Date of Service Aug 01, 2016 Subjective Weakness means patient's major complaint this time. She is having some shortness of breath and labored breathing but this is present at baseline, weakness however is atypical. She denies any sweats or chills. Denies any chest pains. Exam Vital Signs Vital Sign - Last Date Time Temp Pulse Resp B/P Pulse Ox O2 Delivery O2 Flow Rate FiO2 08/01/16 07:30 90 20 95 Nasal Cannula 3.00 08/01/16 03:35 36.5 104/61 Intake and Output 07/31/16 07/31/16 08/01/16 Cumulative From/Thru 15:00 23:00 07:00 07/23/16 15:00 - 08/01/16 05:23 Intake Total 1595 ml 800 ml 33824 ml Output Total 1425 ml 2875 ml 30349 ml Balance 170 ml -2075 ml 7895 ml Intake Oral 1595 ml 800 ml 47978 ml IV Total 8269 ml Output Urine Total 1425 ml 2425 ml 94310 ml Stool Total 450 ml 450 ml Urine/Stool Mix 2150 ml # Voids 9 # Bowel Movements 3 1 20 General: Alert, Cooperative, Moderate Distress Mouth: Mucous Membr Moist/[place] Chest & Lungs: Coarse breath sounds, Other (coarse breath sounds diffusely with good air flow noted in all lung giraldo. No consolidation or dullness to percussion.) Cardiovascular: Regular Rate/Rhythm Abdomen: Non-tender, Non-distended Extremities: No cyanosis/clubbing/edma bilat, Other (patient has ulceration/ erosion on feet bilaterally, which appear in good state of healing. ) Neurological: Other (patient demonstrates generalized tremor of upper and lower extremities, asymmetry of face with facial droop on left side, none of which are acute findings rather more consistent with chronic deficits noted prior due to MS. Exam is otherwise nonfocal and unchanged from previous as reported by patient and based on review of prior documentation. ) IVs and Medications Medications Reviewed: Medications were reviewed in detail Lab and Diagnostics Result Diagram: 08/01/16 0540 07/29/16 0545 Microbiology Blood cultures are negative at 24 hours Sputum culture is pending X-Rays, CTs and MRIs X-RAY CHEST ONE VIEW, PORTABLE 07/23 IMPRESSION: Right basilar opacity suggestive of pneumonia. Aspiration pneumonia cannot be excluded. Recommend interval followup to resolution and exclude presence of underlying mass lesion. Dictated by: Jackie Wing M.D. on 07/23/2016 at 16:42 Approved by: Jackie Wing M.D. on 07/23/2016 at 16:42 --- PROCEDURE: X-RAY ABDOMEN, ONE VIEW ([id number]) INDICATIONS: constipation TECHNIQUE: One view of the abdomen acquired. COMPARISON: None. FINDINGS: Surgical changes and devices: None. Bowel: Bowel gas pattern is normal. Moderate scattered stool. Soft tissues: No suspicious abdominal calcifications. Visualized solid organ contours appear normal in size. Bones: No suspicious bony lesions. IMPRESSION: Moderate scattered stool suggestive of mild constipation. No traction. Dictated by: Jackie Wing M.D. on 07/23/2016 at 16:42 Approved by: Jackie Wing M.D. on 07/23/2016 at 16:43 Cardiac Echo Impressions Echocardiogram Report Name: YOLIS LOBATO EStudy Date : 07/24/2016 Height: 6 8 in Hospital Exam Location: [facility] Weight: 2 39 lb Gender: Female BSA: 2.2 m2 : 1960 Age: 55 yrs BP: 102/5 6 mmHg Reason For Study: Possible Cardiomyopathy Performed By: Jia Chavez Referring Physician: ROSITA ALMAGUER Interpretation Summary The left ventricle is normal in size. Left ventricular systolic function is normal without focal wall motion abnormalities. The ejection fraction is estimated to be 60-65%. Assessment of diastolic parameters indicates normal left ventricular diastolic function and normal filling pressures. The right ventricle is normal in size and function. The right ventricular systolic pressure is estimated at 38 mmHg assuming a right atrial pressure of 3 mm Hg. The left atrial size is normal. Borderline right atrial enlargement. There is no significant valvular heart disease. No signficant changes in comparison with all 3 prior echo studies since 2014. Assessment & Plan Yolis Lobato is a 55 year old morbidly obese female with a complex medical history including recent CVA x2, chronic respiratory failure secondary to COPD, obstructive asthma, CHF, type II diabetes mellitus, diabetic neuropathy, previous upper extremity DVT s/p PICC line on Warfarin, seizure disorder, GERD and bipolar disorder who presents to [facility] emergency department via EMS complaining of generalized weakness # Healthcare associated pneumonia. Present on admission, met criteria for HCAP hospitalization within the last 90 days. Risk factors for MRSA and Pseudomonas. - IV Vancomycin July 23- then DC'd with negative MRSA swab - IV Levaquin followed by oral, total of 8 days, DC'd yesterday by Dr Yen - Chest x-ray on 07/30 worse, now multifocal infiltrates - Currently on oxygen at 2-5-3 L per nasal cannula,her usual at home is 3 L - Swallowing evaluation by speech therapy on July 23 did not show signs of aspiration, there was some concern mention for silent aspiration given radiologic findings of right-sided infiltrates. - Dr. Yen's consult yesterday and follow up today much appreciated -- he's not sure she had bacterial pneumonia but regardless doesn't need further antibiotics for this -- repeat procalcitonin is 0.13, down from 0.5 -- urine Legionella and pneumococcal antigens he ordered yesterday were negative -- ordered Serum cryptococcal antigen which is pending --BNP slightly above normal so less likely that CHF is causing multifocal infiltrates -- ordered CBC, CRP and sed rate for tomorrow morning -- ordered a CT scan noncontrast of the chest (if shows unexplained infiltrates consult Pulmonary) -- ordered some additional basic screening labs for vasculitis and/or autoimmune processes including GREG, rheumatoid factor, an JESSIE level for sarcoid. If the GREG is positive, will pursue additional studies. - Pulmonology, Dr. Myers was consulted in addition further evaluation of lung findings. He concurs etiologies other than infectious may be the cause of patient's current findings. And is also waiting results of serologic studies to evaluate for possible autoimmune process. No further intervention or studies planned at this time. - Modified barium swallow was ordered now to evaluate possible silent aspiration /reflux aspiration, which would be consistent with radiologic findings to date. - Patient continues on supplemental oxygen - We will continue to monitor appreciate specialist consultation very much. # Generalized weakness. Present on admission, Multifactorial metabolic derangements and poor baseline function with deconditioning RLS, resting tremors , obesity in addition to C. difficile colitis. probable CVA in the past. -Likely d/c to SNF upon d/c, but difficulty gaining approval from insurance -daily PT to increase mobility # C.diff colitis, PCR+, -Continue vanc po qid for total 14days (started July 26) - Diarrhea is improved. Certainly may be contributing to weakness as noted above. # Hypokalemia. Present on admission, due to GI fluid loss, now resolved after some potassium replacement - Continue to monitor # Insulin-dependent diabetes mellitus with peripheral neuropathy. a1c10.6 -Blood sugars mostly in the 100s - 25unit Lantus each morning started on July 26 and then increased to 40 July 29. Also added 10 units at HS July 29 (she takes Lantus 3 times a day at home for a total of at least 90 units daily) -continue high dose correctional Lispro algorithm, -continuing Lyrica 150 mg bid # Suspected obesity hypoventilation/KENAN on CPAP therapy, chronic. Presumed stable - Patient has own CPAP for use # COPD. Presumed stable - continuing Neb treatments but does have mild wheezing so we will change to 4 times a day scheduled instead of just as needed - Added prednisone due to heavy wheezing july 27 and responding (although she denies) - continue Budesonide, Fluticasone # History of seizures/Restless Leg syndrome, chronic. Presumed stable - continuing Mirapex, Topamax and Lamotrigine # tremor - Continue Mysoline. Consider Lyrica as the possible cause # ADD - Continue Adderall. Resume home dosing of Vyvanse here. # anemia of chronic disease # right knee and left plantar chronic skin ulcers - Wound care consulted to evaluate and treat, and plan to see patient later today. Disposition: SNF once medically stable and if insurance will authorize Pain Evaluation: Adequate Pain Control GI Prophylaxis: Proton Pump Inhibitor VTE Prophylaxis: Sub-Q Enoxaparin VTE Mechanical Devices: Intermittant Pneumatic CD Resuscitation Status: CPR: Attempt Resuscitation Time spent 30 minutes Vikram Almanza DO Aug 01, 2016 11:09
[2016-08-01] MEDS: Fluticasone 0.05% 15 Spray/2 Gm 16 Gm Nasal Spray NASAL PRN ×2 (14:09→20:57)
--- NOTE | 2016-08-01 15:31 | PROG NOTE ---
[address] [address] PROGRESS NOTE PATIENT: JAILENE LOBATO : 1960 MR#: [id number] ADMIT: 07/23/2016 JOB ID: [id number] DATE: 08/01/2016 INFECTIOUS DISEASE FOLLOW UP NOTE: REASON FOR FOLLOWUP: Pulmonary infiltrates. INTERVAL HISTORY: Recall that this is the unfortunate woman with pulmonary infiltrates, chronic O2 dependence at home and an inflammatory condition of unknown etiology. She has underlying longstanding severe asthma and was recently diagnosed with C. difficile. The patient reports today that she continues to be short of breath with minimal cough but this is actually her baseline. She states she generally requires about 2-3 L by nasal prongs which is what she has been getting the last few days in the hospital. She notes she has very longstanding asthma, is considered to have COPD by her report. She is having no fevers, chills or sweats. She notes her abdomen is a little bit distended but otherwise pretty normal. PHYSICAL EXAMINATION: Reveals an obese woman lying supine in her hospital bed with face mask oxygen going. She is afebrile as she has been for the last eight days. Temperature 36.5. Pulse is 90. Respiratory rate 20. Blood pressure 104/61. She is saturating very well on 3 L. Examination of the eyes reveals no abnormality. Oral cavity normal. Lungs with poor air flow and rales in both bases. Cardiac tones distant. Abdomen soft and nontender. LABORATORIES: Included consistently normal white count, now 9900. Note that she has 75% segs. Her ESR though is 117 and her CRP 10.5. Procalcitonin is low at 0.13. Angiotensin converting enzyme is pending. Also pending IgE, GREG, ANCA and a wide variety of other serologies. Cryptococcal antigen is negative. Legionella and pneumococcal urine antigens are negative. Recall that stool for C. difficile was positive. Otherwise all other micro studies are negative. Yesterday I had recommended a CT scan of the chest. This was done and I reviewed it carefully on the monitor. It shows bilateral patchy pneumonia with areas of consolidation and air bronchograms. Small pleural effusion also noted bilaterally. IMPRESSION: This is an unfortunate woman with a wide variety of complex problems including recent apparent CVA, COPD, requiring home oxygen, diabetes and possible seizures. During this admission, she has been evaluated and treated for what may be pneumonia, and she has already finished an eight day course of levofloxacin without much improvement. My sense is that these pulmonary infiltrates are not conventional bacterial pathogens. I agree with Dr. Verduzco of the pulmonary team that this patient could have Churg-Leilani, rheumatoid lung or some other autoimmune process. If these infiltrates in her lungs represent infection, they are likely something quite atypical such as mycobacterial or fungal process rather than the conventional bacterium. RECOMMENDATIONS: 1. No antibiotics at this time. 2. We await the serologic workup initiated by Dr. Verduzco. 3. If the serologic workup is not revealing, it may be worthwhile to consider bronchoscopy, but this would obviously be deferred to the pulmonary senior safety management consultant. RUBEN
[2016-08-01 16:00] VITALS: PULSE 103; RESP 20; O2SAT 96
--- NOTE | 2016-08-01 16:02 | NUR ---
ABG ordered. Pt. refused. informed. Addendum: 08/01/16 at 1624 by ITZEL ANTUNEZ [facility] Bedside PFT done. Results placed in chart.
[2016-08-01 16:31] VITALS: BP 112/56; PULSE 72; RESP 20; O2SAT 96
--- NOTE | 2016-08-01 16:55 | NUR ---
Eosinophil Clarified with Dr Roe that eosinophil test is to come from nasal secretions, not urine. Obtained sample and sent to lab.
--- NOTE | 2016-08-01 17:45 | NUR ---
Wound Care Patient seen at bedside for replacement of dressings at the left plantar 1st met head, abrasion right medial heel and abrasion right anterior knee. All wounds cleaned with saline and gauze, redressed left 1st met head wound with ns moist gauze covered with dry gauze and taped in place. Adhesive foam dressings and tape placed at right heel and right knee abrasions and reinforced with hypafix tape. Patients tremors seem slightly better today. Nursing to change dressings as needed if loosened by tremors.
--- NOTE | 2016-08-01 18:12 | NUR ---
Activity Pt sat up in chair at bedside for lunch after working with PT. Pt reports feeling "weak" and some exertional dyspnea which resolved with rest. Pt on 3L via NC at this time, alt between NC and mask. Bed in lowest, locked position and call light in reach.
--- NOTE | 2016-08-01 18:19 | PROG NOTE ---
[address] [address] PROGRESS NOTE PATIENT: JAILENE LOBATO : 1960 MR#: [id number] ADMIT: 07/23/2016 JOB ID: [id number] DATE: 08/01/2016 PROBLEM: Abnormal chest x-ray. SUBJECTIVE: Feeling a little bit better today. She finds that she is coughing more, bringing up less phlegm. States the nebulizer does cause some coughing, but ultimately it results in opening up the airways and she finds it easier to breathe. With regard to past history, the patient states that on a good day she can walk maybe half a block. Doubt she can do this now, but stamina issues are improving. States she was up a little bit in the room today. Declines arterial blood gases. States they have been done a number of times and each time it hurt quite badly. Discussed the importance of the blood gas. I would wonder if her BiPAP which is set at 19 is actually doing her some good and, in fact, she states when it ramps up to the higher pressure levels, she has to rip the mask off. Would wonder if she requires BiPAP setup. States she had a sleep study about 20 years ago. States it was done at [facility] by a doctor at [place]. OBJECTIVE: Pulse is 72-203, respiratory rate 20, afebrile, blood pressure 112/56, O2 sat on 3 L is 96%. I and O shows 1.7 L in, 2.3 L out. General appearance: Appears a bit tired. Speaking easily. Looks a little more comfortable than yesterday. Chest: Completed a nebulizer treatment and is causing paroxysms of coughing which leaves her a bit breathless. She does try to clear her throat with rather forceful exhalations. Chest shows decreased breath sounds bilaterally. Left lung is relatively clear. Right lung has some inspiratory/expiratory wheezes and some squeaks. Also has some pulmonary adventitial sounds, somewhat rhonchorous. Heart: Regular rhythm. Heart tones normal. Abdomen is soft. Bowel tones present. LABORATORY DATA: Shows a white count of 9900 with 74 polymorphonuclears, 16 lymphs, 7 monocytes. Hemoglobin 9.4 and stable. Platelet count 591,000 and stable. Other tests all pending at this time. ASSESSMENT: Abnormal chest x-ray. Clinically, the patient is slowly improving. Oxygen requirements are decreasing. Hard to ascertain whether her exercise tolerance is improving. She is somewhat low to get arterial blood gases which might help us on a number of fronts. Will see if we can get by without them. Maybe see if we can get some of these older blood gases she states she has had and maybe the sleep study, though I am not sure a 20-year-old sleep study will be particularly helpful. Pending serology, I think I would be content to wait at this point. Clinically, she says she is better and, in fact, pretty much back to normal though still cannot negotiate half a block, by her estimate. Will see if some of the pending serologies might help us in that regard. PLAN: 1. Await outstanding studies. 2. Will hold off on possibly acquiring a Trilogy as without blood gases the insurance will not pay for the machine. 3. Will have to fiddle with her CPAP. Maybe we can use the BiPAP here in the hospital at night and see how that works for the patient. If it works out well, may convince her to obtain gases.
[2016-08-01 19:55] VITALS: PULSE 99; RESP 22; O2SAT 97
[2016-08-01 20:06] VITALS: BP 113/65; PULSE 101; RESP 20; O2SAT 96
[2016-08-01] MEDS: DULoxetine 30 mg DR Capsule PO SCH (20:40)
[2016-08-01] MEDS: Tiotropium 18mcg/Cap 5 Capsule Inhaler Kit INHALATION SCH (20:50)
[2016-08-02] VITALS (7 sets, daily range): BP systolic 93–125; BP diastolic 59–72; PULSE 81–95; RESP 18–22; O2SAT 95–97
[2016-08-02] MEDS: Vancomycin 125 mg Oral Capsule PO SCH ×4 (00:38→17:28)
[2016-08-02 06:06] LABS: BASOPHILS % (AUTO) 0.1 % (0-3); MONOCYTES % (AUTO) 8.4 % (4-12); Mean Corpuscular Hemoglobin 29.4 pg (27.0-35.0); Mean Corpuscular Volume 95.6 fL (81-100); Platelet Count 650 bil/L (150-400)
[2016-08-02] MEDS: Polyethylene Glycol (PEG) 17 Gm Powder PO SCH (07:31)
[2016-08-02] MEDS: Albuterol 2.5 mg/3 mL Inhalation Solution NEB SCH ×4 (07:50→19:47)
[2016-08-02] MEDS: Fluticasone 0.05% 15 Spray/2 Gm 16 Gm Nasal Spray NASAL PRN (08:10)
[2016-08-02] MEDS: Potassium Chloride 20 mEq/15 mL 15mL Oral Soln PO SCH ×3 (08:11→17:31)
[2016-08-02] MEDS: Fluticasone-Salmeterol 500-50 Inhaler INHALATION SCH ×2 (08:11→20:33)
[2016-08-02] MEDS: Insulin LISPRO High-Dose Scale SUBQ SCH ×4 (08:12→21:16)
[2016-08-02] MEDS: Insulin GLARgine 100 Unit/mL Syringe SUBQ SCH ×2 (08:13→21:15)
[2016-08-02] MEDS: lamoTRIgine 100 mg Tablet PO SCH ×2 (08:14→20:32)
[2016-08-02] MEDS: Pantoprazole 40 mg ER24 Tablet PO SCH ×2 (08:15→20:32)
[2016-08-02] MEDS: [UNRECOGNIZED DRUG - OTHER] PO SCH ×4 (08:17→15:42)
[2016-08-02] MEDS: predniSONE 20 mg Tablet PO SCH (08:18)
[2016-08-02] MEDS: VYVANSE 70 MG PO SCH (08:19)
--- NOTE | 2016-08-02 10:31 | NUR ---
Off unit Pt off unit for barium swallow. Addendum: 08/02/16 at 1703 by CANDIDO HAMMER RN Pt back on unit at 1120.
--- NOTE | 2016-08-02 10:35 | NUR ---
Social Work: Continued d/c planning Data: Pt is on day 10 of hospitalization. EMR reviewed. Pt discussed in rounds. states that ID and Pulmonology continue to be working with pt. They are considering a Trilogy for pt and are working with [facility] with RT. TECHNICAL DELIVERY MANAGER notified Silvia with [facility] that pt will likely remain in the hospital at least 1-2 more days. PT continues to recommend SNF, pt's insurance will not authorize this. TECHNICAL DELIVERY MANAGER will continue to follow. Assessment: Pt who is independent at baseline. Plan: Pt will d/c home via POV with spouse when medically stable with [facility] RN, PT, OT, SOCK KNITTING MACHINE OPERATOR, TECHNICAL DELIVERY MANAGER, [facility] for home O2, possibly [facility] for Trilogy pending RT and Pulmonology, and care of spouse. TECHNICAL DELIVERY MANAGER will continue to follow. SVETLANA Oliver
--- NOTE | 2016-08-02 11:08 | PCM.PNMED ---
Subjective Date of Service Aug 02, 2016 Subjective Patient notes no significant changes overnight. Still feels much weaker than baseline breathing function is stable. He declined ABG yesterday which may complicate obtaining a home Trilogy machine which was recommended by pulmonology , they explained that it was the pain the procedure that had made her reluctant , may be amenable to a brachial ABG today if needed. Otherwise no acute complaints or changes though still endorsing increased worker breathing in addition to generalized weakness which again has improved some in the last 24 hours. Appetite is good she is eating a little bit more. Exam Vital Signs Vital Sign - Last Date Time Temp Pulse Resp B/P Pulse Ox O2 Delivery O2 Flow Rate FiO2 08/02/16 07:51 83 22 97 OxyMask 3.00 08/02/16 04:52 36.4 93/60 Intake and Output 08/01/16 08/01/16 08/02/16 Cumulative From/Thru 15:00 23:00 07:00 07/23/16 15:00 - 08/01/16 20:58 Intake Total 1508 ml 72090 ml Output Total 2000 ml 24425 ml Balance -492 ml 7403 ml Intake Oral 1508 ml 73651 ml IV Total 8269 ml Output Urine Total 2000 ml 41575 ml Stool Total 450 ml Urine/Stool Mix 2150 ml # Voids 9 # Bowel Movements 2 22 Exam General: Alert, Cooperative, Moderate Distress Mouth: Mucous Membranes Moist/Jeddo Chest & Lungs: Coarse breath sounds, coarse breath sounds diffusely with good air flow noted in all lung giraldo. No consolidation or dullness to percussion. Mild crackles in right lower lobe. Cardiovascular: Regular Rate/Rhythm Abdomen: Non-tender, Non-distended Extremities: No cyanosis/clubbing/edema bilaterally, patient has ulceration/ erosion on feet bilaterally, now dressed with clean dry across. Neurological: Patient demonstrates generalized tremor of upper and lower extremities much improved from one day previous, asymmetry of face with facial droop on left side, none of which are acute findings rather more consistent with chronic deficits noted prior due to MS. Exam is otherwise nonfocal and unchanged from previous. IVs and Medications Medications Reviewed: Medications were reviewed in detail Lab and Diagnostics Result Diagram: 08/02/16 0540 08/02/16 0540 Microbiology Blood cultures are negative at 24 hours Sputum culture is pending X-Rays, CTs and MRIs X-RAY CHEST ONE VIEW, PORTABLE 5/23 IMPRESSION: Right basilar opacity suggestive of pneumonia. Aspiration pneumonia cannot be excluded. Recommend interval followup to resolution and exclude presence of underlying mass lesion. Dictated by: Jackie Wing M.D. on 07/23/2016 at 16:42 Approved by: Jackie Wing M.D. on 07/23/2016 at 16:42 --- PROCEDURE: X-RAY ABDOMEN, ONE VIEW ([id number]) INDICATIONS: constipation TECHNIQUE: One view of the abdomen acquired. COMPARISON: None. FINDINGS: Surgical changes and devices: None. Bowel: Bowel gas pattern is normal. Moderate scattered stool. Soft tissues: No suspicious abdominal calcifications. Visualized solid organ contours appear normal in size. Bones: No suspicious bony lesions. IMPRESSION: Moderate scattered stool suggestive of mild constipation. No traction. Dictated by: Jackie Wing M.D. on 07/23/2016 at 16:42 Approved by: Jackie Wing M.D. on 07/23/2016 at 16:43 Cardiac Echo Impressions Echocardiogram Report Name: YOLIS LOBATO EStudy Date : 07/24/2016 Height: 6 8 in Hospital Exam Location: [facility] Weight: 2 39 lb Gender: Female BSA: 2.2 m2 : 1960 Age: 55 yrs BP: 102/5 6 mmHg Reason For Study: Possible Cardiomyopathy Performed By: Jia Chavez Referring Physician: ROSITA ALMAGUER Interpretation Summary The left ventricle is normal in size. Left ventricular systolic function is normal without focal wall motion abnormalities. The ejection fraction is estimated to be 60-65%. Assessment of diastolic parameters indicates normal left ventricular diastolic function and normal filling pressures. The right ventricle is normal in size and function. The right ventricular systolic pressure is estimated at 38 mmHg assuming a right atrial pressure of 3 mm Hg. The left atrial size is normal. Borderline right atrial enlargement. There is no significant valvular heart disease. No signficant changes in comparison with all 3 prior echo studies since 2015. Assessment & Plan Yolis Lobato is a 55 year old morbidly obese female with a complex medical history including recent CVA x2, chronic respiratory failure secondary to COPD, obstructive asthma, CHF, type II diabetes mellitus, diabetic neuropathy, previous upper extremity DVT s/p PICC line on Warfarin, seizure disorder, GERD and bipolar disorder who presents to [facility] emergency department via EMS complaining of generalized weakness # Healthcare associated pneumonia. Present on admission, met criteria for HCAP hospitalization within the last 90 days. Risk factors for MRSA and Pseudomonas. - IV Vancomycin July 23- then DC'd with negative MRSA swab - IV Levaquin followed by oral, total of 8 days, DC'd yesterday by Dr Yen - Chest x-ray on 07/30 worse, now multifocal infiltrates - Currently on oxygen at 2-5-3 L per nasal cannula,her usual at home is 3 L - Swallowing evaluation by speech therapy on July 23 did not show signs of aspiration, there was some concern mention for silent aspiration given radiologic findings of right-sided infiltrates. - Dr. Yen's consult yesterday and follow up today much appreciated -- he's not sure she had bacterial pneumonia but regardless doesn't need further antibiotics for this -- repeat procalcitonin is 0.13, down from 0.5 -- urine Legionella and pneumococcal antigens he ordered yesterday were negative -- ordered Serum cryptococcal antigen which is pending --BNP slightly above normal so less likely that CHF is causing multifocal infiltrates -- ordered CBC, CRP and sed rate for tomorrow morning -- ordered a CT scan noncontrast of the chest (if shows unexplained infiltrates consult Pulmonary) -- ordered some additional basic screening labs for vasculitis and/or autoimmune processes including GREG, rheumatoid factor, an JESSIE level for sarcoid. If the GREG is positive, will pursue additional studies. - Pulmonology, Dr. Myers was consulted in addition further evaluation of lung findings. He concurs etiologies other than infectious may be the cause of patient's current findings. And is also waiting results of serologic studies to evaluate for possible autoimmune process. No further intervention or studies planned at this time. - Modified barium swallow was ordered and still pending to evaluate possible silent aspiration/reflux aspiration, which would be consistent with radiologic findings to date. - Patient continues on supplemental oxygen - We will continue to monitor appreciate specialist consultation very much. # Generalized weakness. Present on admission, Multifactorial metabolic derangements and poor baseline function with deconditioning RLS, resting tremors , obesity in addition to C. difficile colitis. probable CVA in the past. -Likely d/c to SNF upon d/c, but difficulty gaining approval from insurance -daily PT to increase mobility # C.diff colitis, PCR+, -Continue vanc po qid for total 14days (started July 26) - Diarrhea is improved. Certainly may be contributing to weakness as noted above. # Hypokalemia. Present on admission, due to GI fluid loss, now resolved after some potassium replacement - Continue to monitor # Insulin-dependent diabetes mellitus with peripheral neuropathy. a1c10.6 -Blood sugars mostly in the 100s - 25unit Lantus each morning started on July 26 and then increased to 40 July 29. Also added 10 units at HS July 29 (she takes Lantus 3 times a day at home for a total of at least 90 units daily) -continue high dose correctional Lispro algorithm, -continuing Lyrica 150 mg bid # Suspected obesity hypoventilation/KENAN on CPAP therapy, chronic. Presumed stable - Patient has own CPAP for use, but based on elevated CO2, and overall poor respiratory efforts is likely that this is not sufficient for adequate ventilation. - Pulmonology has recommended patient be considered for trilogy machine however this is pending insurance authorization and ABG may be needed for approval. # COPD. Presumed stable - continuing Neb treatments but does have mild wheezing so we will change to 4 times a day scheduled instead of just as needed - Added prednisone due to heavy wheezing july 27 and responding (although she denies) - continue Budesonide, Fluticasone # History of seizures/Restless Leg syndrome, chronic. Presumed stable - continuing Mirapex, Topamax and Lamotrigine # tremor - Continue Mysoline. Consider Lyrica as the possible cause # ADD - Continue Adderall. Resume home dosing of Vyvanse here. # anemia of chronic disease # right knee and left plantar chronic skin ulcers - Wound care consulted to evaluate and treat, and plan to see patient later today. Disposition: SNF once medically stable and if insurance will authorize Pain Evaluation: Adequate Pain Control GI Prophylaxis: Proton Pump Inhibitor VTE Prophylaxis: Sub-Q Enoxaparin VTE Mechanical Devices: Intermittant Pneumatic CD Resuscitation Status: CPR: Attempt Resuscitation Time spent 30 minutes Vikram Almanza DO Aug 02, 2016 11:08
--- NOTE | 2016-08-02 11:17 | NUR ---
MBSS evaluation completed. Please go to "Notes" then click on "Assessments and Notes" (bottom left corner of screen). Then select appropriate discipline tab on top of screen.
--- NOTE | 2016-08-02 11:45 | DRSVH ---
PROCEDURE: X-RAY BARIUM SWALLOW WITH FOOD & VIDEOGRAPHY ([id number]) INDICATIONS: to eval for possible silent aspiration/reflux asp TECHNIQUE: Examination was conducted in conjunction with speech pathology per standard protocol. In the lateral projection, filming was performed of the patient swallowing. AP projection filming may also be performed with patient swallowing. COMPARISON: None. FINDINGS: Function: The oral preparatory phase appears normal, with proper containment. The subsequent oral pr opulsive phase, pharyngeal phase, and esophageal phase of swallowing also appear normal with all prof fered substances. No laryngotracheal penetration or aspiration. No pathologic vallecular pooling. The attending physician was personally present in the room during the examination. Cervical fusion r ods present within the upper to mid cervical spine. Morphology: No cricopharyngeal bar is identified. No cervical esophageal webs. No Zenker's diverti culum. No strictures. IMPRESSION: No laryngeal penetration or tracheobronchial aspiration. Dictated by: Elio Bell [facility] Interpreted: Suleman Penny MD on 08/02/2016 at 11:44 Transcribed by: ANNA on 08/02/2016 at 11:45 Approved by: Suleman Penny M.D. on 08/02/2016 at 14:10
--- NOTE | 2016-08-02 12:16 | ABG ---
DateTimeAnalyzed 12:09:00 -_ pH ____7.425 - 7.350 7.450 pCO2 ___50.1__ -mmHg 35.0 45.0 pO2 ___64.0__ -mmHg 69.0 116 HCO3- ___32.3__ -mmol/L 22.0 26.0 ABE ____7.3__ -mmol/L -2.0 2.0 tHb ___10.3__ -g/dL O2Hb ___90.1__ -% COHb ____1.8__ -% MetHb ____1.0__ -% sO2 ___92.7__ -% FIO2 ___28.0__ -% Drawn By NB - Date/Time Notified____ 12:14:00 -_ Liter_Flow ____3.0__ -L/min Oxygen Device 1 __CANNULA - Notified By NB - B 760 -mmHg tO2 ___13.1__ -Vol% Chivo test N/A -
--- NOTE | 2016-08-02 16:09 | PROG NOTE ---
[address] [address] PROGRESS NOTE PATIENT: JAILENE LOBATO : 1960 MR#: [id number] ADMIT: 07/23/2016 JOB ID: [id number] DATE: 08/02/2016 PULMONARY FOLLOW UP NOTE: PROBLEMS: 1. Abnormal chest x-ray. 2. Obesity. 3. Hypoxemia. SUBJECTIVE: Breathing may be a little bit better today. Not appreciably better than yesterday, though maybe a bit more comfortable. Some cough. Noticed some intermittent wheezing. Minimal amount of phlegm. OBJECTIVE: Temperature 36.8. Pulse low 80s. Respiratory rate 20-22. Blood pressure 105/59, O2 sat on 3 L is 96%. General appearance: Comfortable. Lying back at about 45-60 degrees. Wearing nasal prongs. Working with her I phone. Chest: Fairly good breath sounds bilaterally. Lung giraldo for the most part clear. However, after sitting up and having a coughing paroxysm, the patient was noted to have audible wheezing seemingly emanating from the upper airway. No particular use of the accessory muscles. Heart: Regular rhythm. Heart tones normal. Abdomen is soft and nontender with active bowel tones. Minimal diarrhea stools, maybe 2-3. Venous duplex study shows no evidence of intraluminal thrombi in the lower extremities. Barium swallow shows no laryngeal penetration or tracheal bronchial aspiration. However, she has been placed on meds with applesauce diet. Arterial blood gases on 3 L of oxygen saw a pO2 of 64, pCO2 of 50, pH 7.42. LABORATORY DATA: Shows a white count of 8700, which is slowly decreasing. Differential was normal. Hemoglobin of 10.1, slightly rising. Platelet count 650,000, relatively stable. Sodium 137, potassium 3.5, chloride 91, CO2 is 33. BUN 19, creatinine 0.96. Glucose moderately elevated at 186 though improved from previous values. Calcium 9.3 with an albumin of 3.3. Bilirubin, transaminases, alkaline phos were all normal. IgE level is 14. Rheumatoid factor, essentially normal, being 14, upper limits normal being 13.9. GREG was negative. Cryptococcal antigen is negative as is urine for Legionella antigen. Other studies pending. Nasal smear for eosinophils was negative with none being seen. Spirometry shows a forced vital capacity of 1.52 with predicted 3.94. Therefore, being 39% of predicted and a FEV 1 of 1.21 L with a predicted of 3.10 L, which is also 39% of predicted. FEV 1/VC ratio is 79%. Flow volume loop is narrowed. Volume time curve is normal. The study is suggestive of restrictive pattern though criteria demands lung volume studies to declare a restrictive pattern. Clinically she is doing a bit better. Sleep studies apparently are being brought. Will need to talk to the Trilogy people about whether she might benefit from a Trilogy and would she qualify for coverage. PLAN: 1. Continue current regimen. 2. Review sleep study when available. 3. Discuss with durable equipment vendor criteria for Trilogy. Concern is the patient states she is extremely claustrophobic and will probably have to work with her quite a bit to have her get used to the mask and pressures. 4. Repeat the chest x-ray tomorrow.
--- NOTE | 2016-08-02 17:03 | NUR ---
Activity/BM Pt amb with SBA/FWW to BR. Denies any dizziness with change of position and tolerating activity well. Refused offer to sit in chair at bedside. Pt continues with loose bowels, AM MiraLax held. Bed in lowest, locked position and call light in reach.
[2016-08-02] MEDS: DULoxetine 30 mg DR Capsule PO SCH (20:33)
[2016-08-02] MEDS: Tiotropium 18mcg/Cap 5 Capsule Inhaler Kit INHALATION SCH (20:33)
[2016-08-03] MEDS: Vancomycin 125 mg Oral Capsule PO SCH ×4 (00:43→17:09)
--- NOTE | 2016-08-03 01:14 | PROG NOTE ---
[address] [address] PROGRESS NOTE PATIENT: JAILENE LOBATO : 1960 MR#: [id number] ADMIT: 07/23/2016 JOB ID: [id number] INFECTIOUS DISEASE FOLLOWUP: DATE: 08/02/2016 REASON FOR FOLLOWUP: Pulmonary infiltrates with C. diff. INTERVAL HISTORY: Patient reports she has had no fevers, chills, or sweats. She continues to have minimal cough and is not especially short of breath. She notes she is now having loose stools and wonders if her laxatives can be stopped. No abdominal pain. PHYSICAL EXAM: VITALS: Reveals an afebrile woman. Temperature 36.8, pulse 63, respiratory rate 20, blood pressure 105/59. Saturating well on 3 liters. Oral cavity: Unremarkable. Mental status: Clear. Lungs: Decreased breath sounds, right greater than left. Heart: Cardiac tones without change. Abdomen: Obese, but benign. LABORATORY DATA: Labs include a white count 8700, platelets 650, normal white cells, diff. Creatinine 0.96, albumin 3.3. Procalcitonin 0.13. Rheumatoid factor 14, which is borderline. ANCA is pending. IgE is 14. Crypto antigen negative. C. diff positive in stool. Otherwise, all negative cultures. No new x-ray has been done. The modified barium swallow shows no aspiration. IMPRESSION: This is a complex case of a woman with complex problems including chronic obstructive pulmonary disease, diabetes, and possible cerebrovascular accident. She has pulmonary infiltrates which were treated empirically with levofloxacin, but I think there is no current evidence of infection. She is being worked up for other possibilities including vasculitis, some other process. RECOMMENDATIONS: 1. No antibiotics except oral vancomycin which should be used for two weeks. 2. Pulmonary workup is ongoing. 3. The patient can be taken out to the [facility] for additional walking to help her get ready for discharge, but she should remain in reverse isolation when she is not actively walking the halls. 4. As she is on no antibiotics and does not appear infected, ID will sign off at this time.
--- NOTE | 2016-08-03 05:41 | NUR ---
Activity Patient up to bathroom SBA with FWW. tolerates activity well. denies pain/discomfort. slept throughout the night. will continue to encourage ambulation.
[2016-08-03 05:59] LABS: BASOPHILS % (AUTO) 0.3 % (0-3); EOSINOPHILS % (AUTO) 2.9 % (0-5); MONOCYTES % (AUTO) 8.6 % (4-12); Mean Corpuscular Hemoglobin 30.1 pg (27.0-35.0); NEUTROPHILS % (AUTO) 63.8 % (40-74); Platelet Count 648 bil/L (150-400)
[2016-08-03 06:03] VITALS: BP 97/58; PULSE 82; RESP 18; O2SAT 99
[2016-08-03] MEDS: Albuterol 2.5 mg/3 mL Inhalation Solution NEB SCH ×3 (08:07→16:07)
[2016-08-03 08:08] VITALS: PULSE 84; RESP 18; O2SAT 94
[2016-08-03] MEDS: Insulin LISPRO High-Dose Scale SUBQ SCH ×4 (09:05→22:06)
[2016-08-03] MEDS: lamoTRIgine 100 mg Tablet PO SCH ×2 (09:07→21:28)
[2016-08-03] MEDS: Fluticasone-Salmeterol 500-50 Inhaler INHALATION SCH ×2 (09:08→21:29)
[2016-08-03] MEDS: Fluticasone 0.05% 15 Spray/2 Gm 16 Gm Nasal Spray NASAL PRN (09:09)
[2016-08-03] MEDS: Insulin GLARgine 100 Unit/mL Syringe SUBQ SCH ×2 (09:11→22:06)
[2016-08-03] MEDS: Pantoprazole 40 mg ER24 Tablet PO SCH ×2 (09:20→21:29)
[2016-08-03] MEDS: [UNRECOGNIZED DRUG - OTHER] PO SCH ×4 (09:20→17:09)
--- NOTE | 2016-08-03 09:24 | DRSVH ---
PROCEDURE: X-RAY CHEST ONE VIEW, PORTABLE ([id number]) INDICATIONS: diffuse pulmonary infiltrates TECHNIQUE: One view of the chest was acquired. COMPARISON: [facility], CR, XR CHEST 2VW, 07/30/2016, 7:58. [facility], CR, XR CHEST 1VW (PORTABLE), 07/23/2016, 16:15. FINDINGS: Surgical changes and devices: Cervicothoracic spine fixation hardware is stable. Lungs and pleura: No pleural effusions or pneumothorax. Bibasilar lung opacities have diminished in size in interval since prior examination obtained 07/30/2016 Mediastinum: Mediastinal contours appear normal. Heart size is normal. Bones and chest wall: No suspicious bony lesions. Overlying soft tissues appear unremarkable. IMPRESSION: Patchy bibasilar airspace opacities diminished in size compatible with resolving pneumon ia without complete resolution Dictated by: Nadia Casey MD, PhD on 08/03/2016 at 9:21 Approved by: Nadia Casey MD, PhD on 08/03/2016 at 9:22
[2016-08-03] MEDS: predniSONE 20 mg Tablet PO SCH (09:28)
[2016-08-03] MEDS: Potassium Chloride 20 mEq/15 mL 15mL Oral Soln PO SCH ×3 (09:29→17:09)
--- NOTE | 2016-08-03 10:39 | NUR ---
Social Work: readiness for discharge Data:EMR reviewed. Pt is on day 11 of hospitalization for pneumonia per H&P. MD anticipates 1-2 more days for pt. ID has signed off on pt, pulmonary continues to be involved. Pulmonary considering a trilogy for pt and is working with RT and [facility]. Pt has been set up with services through [facility] for RN,PT,OT, and CRACKING AND FANNING MACHINE OPERATOR. PT has cleared pt for home with services. Pt and agreeable to plan. MD to fill out F2F. SW will continue to follow. Assessment: Pt who is independent at baseline. Plan: Pt to discharge home e via POV with spouse when medically stable. Pt has been set up with [facility] RN, PT, OT, CRACKING AND FANNING MACHINE OPERATOR. Pt has home O2 through [facility]. Pt may have [facility] for Trilogy pending RT and Pulmonology recommendations. SW will continue to follow. SVETLANA Roldan
[2016-08-03] MEDS: VYVANSE 70 MG PO SCH (10:40)
[2016-08-03 12:34] VITALS: PULSE 94; RESP 18; O2SAT 94
--- NOTE | 2016-08-03 14:19 | PCM.PNMED ---
Subjective Date of Service Aug 03, 2016 Subjective Patient notes feeling significant improvement overnight. Still very weak or from her baseline, breathing is still labored but this is closer to her usual. Appetite is good at least she is dry breakfast during time of my examination. Tremor has returned though no worse than her baseline. Has no recent fever chills. No chest pains or palpitations. Exam Vital Signs Vital Sign - Last Date Time Temp Pulse Resp B/P Pulse Ox O2 Delivery O2 Flow Rate FiO2 08/03/16 12:34 94 18 94 Nasal Cannula 3.00 08/03/16 06:03 36.7 97/58 Intake and Output 08/02/16 08/02/16 08/03/16 Cumulative From/Thru 15:00 23:00 07:00 07/23/16 15:00 - 08/03/16 06:07 Intake Total 300 ml 1108 ml 200 ml 95659 ml Output Total 2400 ml 2400 ml 1000 ml 32089 ml Balance -2100 ml -1292 ml -800 ml 3211 ml Intake Oral 300 ml 1108 ml 200 ml 35194 ml IV Total 8269 ml Output Urine Total 2400 ml 2400 ml 1000 ml 01522 ml Stool Total 450 ml Urine/Stool Mix 2150 ml # Voids 9 # Bowel Movements 2 2 1 27 Exam General: Alert, Cooperative, Moderate Distress Mouth: Mucous Membranes Moist/[place] Abdomen: Non-tender, Non-distended Extremities: No cyanosis/clubbing/edema bilaterally, patient has ulceration/ erosion on feet bilaterally, now dressed with clean dry across. Neurological: Patient demonstrates generalized tremor of upper and lower extremities , asymmetry of face with facial droop on left side, none of which are acute findings rather more consistent with chronic deficits noted prior due to MS. IVs and Medications Medications Reviewed: Medications were reviewed in detail Lab and Diagnostics Result Diagram: 08/03/16 0532 08/03/16 0532 Microbiology Blood cultures are negative at 24 hours Sputum culture is pending X-Rays, CTs and MRIs X-RAY CHEST ONE VIEW, PORTABLE 07/23 IMPRESSION: Right basilar opacity suggestive of pneumonia. Aspiration pneumonia cannot be excluded. Recommend interval followup to resolution and exclude presence of underlying mass lesion. Dictated by: Jackie Wing M.D. on 07/23/2016 at 16:42 Approved by: Jackie Wing M.D. on 07/23/2016 at 16:42 --- PROCEDURE: X-RAY ABDOMEN, ONE VIEW ([id number]) INDICATIONS: constipation TECHNIQUE: One view of the abdomen acquired. COMPARISON: None. FINDINGS: Surgical changes and devices: None. Bowel: Bowel gas pattern is normal. Moderate scattered stool. Soft tissues: No suspicious abdominal calcifications. Visualized solid organ contours appear normal in size. Bones: No suspicious bony lesions. IMPRESSION: Moderate scattered stool suggestive of mild constipation. No traction. Dictated by: Jackie Wing M.D. on 07/23/2016 at 16:42 Approved by: Jackie Wing M.D. on 07/23/2016 at 16:43 Cardiac Echo Impressions Echocardiogram Report Name: YOLIS LOBATO EStudy Date : 07/24/2016 Height: 6 8 in Hospital Exam Location: [facility] Weight: 2 39 lb Gender: Female BSA: 2.2 m2 : 1960 Age: 55 yrs BP: 102/5 6 mmHg Reason For Study: Possible Cardiomyopathy Performed By: Jia Chavez Referring Physician: ROSITA ALMAGUER Interpretation Summary The left ventricle is normal in size. Left ventricular systolic function is normal without focal wall motion abnormalities. The ejection fraction is estimated to be 60-65%. Assessment of diastolic parameters indicates normal left ventricular diastolic function and normal filling pressures. The right ventricle is normal in size and function. The right ventricular systolic pressure is estimated at 38 mmHg assuming a right atrial pressure of 3 mm Hg. The left atrial size is normal. Borderline right atrial enlargement. There is no significant valvular heart disease. No signficant changes in comparison with all 3 prior echo studies since 2014. Assessment & Plan Yolis Lobato is a 55 year old morbidly obese female with a complex medical history including recent CVA x2, chronic respiratory failure secondary to COPD, obstructive asthma, CHF, type II diabetes mellitus, diabetic neuropathy, previous upper extremity DVT s/p PICC line on Warfarin, seizure disorder, GERD and bipolar disorder who presents to [facility] emergency department via EMS complaining of generalized weakness # Healthcare associated pneumonia. Present on admission, met criteria for HCAP hospitalization within the last 90 days. Risk factors for MRSA and Pseudomonas. - IV Vancomycin July 23- then DC'd with negative MRSA swab - IV Levaquin followed by oral, total of 8 days, DC'd yesterday by Dr Yen - Chest x-ray on 07/30 worse, now multifocal infiltrates - Currently on oxygen at 2-5-3 L per nasal cannula,her usual at home is 3 L - Swallowing evaluation by speech therapy on July 23 did not show signs of aspiration, there was some concern mention for silent aspiration given radiologic findings of right-sided infiltrates. - Dr. Yen's consult yesterday and follow up today much appreciated -- he's not sure she had bacterial pneumonia but regardless doesn't need further antibiotics for this -- repeat procalcitonin is 0.13, down from 0.5 -- urine Legionella and pneumococcal antigens he ordered yesterday were negative -- ordered Serum cryptococcal antigen which is pending --BNP slightly above normal so less likely that CHF is causing multifocal infiltrates -- ordered CBC, CRP and sed rate for tomorrow morning -- ordered a CT scan noncontrast of the chest (if shows unexplained infiltrates consult Pulmonary) -- ordered some additional basic screening labs for vasculitis and/or autoimmune processes including GREG, rheumatoid factor, an JESSIE level for sarcoid. If the GREG is positive, will pursue additional studies. - Pulmonology, Dr. Myers was consulted in addition further evaluation of lung findings. He concurs etiologies other than infectious may be the cause of patient's current findings. And is also waiting results of serologic studies to evaluate for possible autoimmune process. No further intervention or studies planned at this time. - Modified barium swallow was ordered and still pending to evaluate possible silent aspiration/reflux aspiration, which would be consistent with radiologic findings to date. - Patient continues on supplemental oxygen - Ideally she will benefit from Trilogy breathing machine for submental support , this is pending insurance authorization I will make from much safer discharge if able to be achieved as patient appears to be inadequately ventilated with current CPAP machine. - We will continue to monitor appreciate specialist consultation very much. Stand by also signed off given patient demonstrate no evidence of acute infection, will continue to look forward to the assistance of perforator loader Dr. Myers. # Generalized weakness. Present on admission, Multifactorial metabolic derangements and poor baseline function with deconditioning RLS, resting tremors , obesity in addition to C. difficile colitis. probable CVA in the past. -Likely d/c to SNF upon d/c, but difficulty gaining approval from insurance -daily PT to increase mobility, patient is now allowed to ambulate out of room as per infectious disease recommendations, but otherwise muscle in isolation # C.diff colitis, PCR+, -Continue vanc po qid for total 14days (started July 26) - Diarrhea is improved. Certainly may be contributing to weakness as noted above. # Hypokalemia. Present on admission, due to GI fluid loss, now resolved after some potassium replacement - Continue to monitor # Insulin-dependent diabetes mellitus with peripheral neuropathy. a1c10.6 -Blood sugars mostly in the 100s - 25unit Lantus each morning started on July 26 and then increased to 40 July 29. Also added 10 units at HS July 29 (she takes Lantus 3 times a day at home for a total of at least 90 units daily) -continue high dose correctional Lispro algorithm, -continuing Lyrica 150 mg bid # Suspected obesity hypoventilation/KENAN on CPAP therapy, chronic. Presumed stable - Patient has own CPAP for use, but based on elevated CO2, and overall poor respiratory efforts is likely that this is not sufficient for adequate ventilation. - As noted above pulmonology has recommended patient be considered for trilogy machine however this is pending insurance authorization and ABG may be needed for approval. # COPD. Presumed stable - continuing Neb treatments but does have mild wheezing so we will change to 4 times a day scheduled instead of just as needed - Added prednisone due to heavy wheezing july 27 and responding (although she denies) - continue Budesonide, Fluticasone # History of seizures/Restless Leg syndrome, chronic. Presumed stable - continuing Mirapex, Topamax and Lamotrigine # tremor - Continue Mysoline. Consider Lyrica as the possible cause # ADD - Continue Adderall. Resume home dosing of Vyvanse here. # anemia of chronic disease # right knee and left plantar chronic skin ulcers - Wound care consulted to evaluate and treat, and plan to see patient later today. Disposition: SNF once medically stable and if insurance will authorize Pain Evaluation: Adequate Pain Control GI Prophylaxis: Proton Pump Inhibitor VTE Prophylaxis: Sub-Q Enoxaparin VTE Mechanical Devices: Intermittant Pneumatic CD Resuscitation Status: CPR: Attempt Resuscitation Time spent 25 minutes Vikram Almanza DO Aug 03, 2016 14:19
[2016-08-03 16:07] VITALS: PULSE 94; RESP 18; O2SAT 93
[2016-08-03] MEDS ORDERED: Albuterol-Ipratropium 3 mL Inhalation Solution NEB PRN (17:10)
--- NOTE | 2016-08-03 18:00 | NUR ---
Activity/BM: Patient Sits up in her bed for meals and ambulates to the bathroom. Patient stated that her stools are becoming more formed. She continues to be on precautions for C Diff. .Patient wasnts to ambulate in the [place]. Explained to patient with her diagnosis of C Diff and the contagion factor . Ambulating in her room is a better idea.
[2016-08-03 18:22] VITALS: BP 120/66; PULSE 86; RESP 18; O2SAT 92
--- NOTE | 2016-08-03 18:42 | PROG NOTE ---
[address] [address] PROGRESS NOTE PATIENT: JAILENE LOBATO : 1960 MR#: [id number] ADMIT: 07/23/2016 JOB ID: [id number] DATE: 08/03/2016 PULMONARY FOLLOWUP NOTE: PROBLEM: 1. Abnormal chest x-ray. 2. Obesity. 3. Hypoxemia. SUBJECTIVE: Feeling a bit "puny" today. Just somewhat out of sorts. Somewhat of a dry cough. Cough is precipitated by taking deep breaths. Breathing is about the same. She is somewhat distraught over inactivity. OBJECTIVE: Temperature 36.7. Pulse 82-94, respiratory rate 18. Blood pressure 97/58. O2 sat on 3 L running 93% to 99%. I and O shows 1.4 L in, 4.8 L out. General appearance: No acute distress. Somewhat depressed-appearing though breathing seems comfortable. No use of accessory muscles. Speaking in full sentences. Chest: Fair breath sounds anteriorly. Relatively clear except for maybe a few crackles at the bases. No use of accessory muscles. No tracheal tug. Heart: Regular rhythm. Heart tones normal. Abdomen soft. Chest x-ray shows significant improvement in the bilateral pulmonary opacities. LABORATORY DATA: Shows a white count of 7500 with normal differential. Hemoglobin stable at 10.9. Platelet count stable at 648,000. Sodium 139, potassium 3.4, with the patient receiving supplemental potassium, chloride 90, CO2 is 35, BUN 19, creatinine 0.9. Calcium 9.6. Reviewed the sleep study the patient underwent in the . She had tremendous hypopneic index. Sleep study was specifically done on October 27, 1998. RDI was elevated at 52 with the total number of apneas being 357, with the lowest O2 saturation of 94%. ASSESSMENT: 1. Pulmonary infiltrates. Resolving. Would continue the current regimen for another few days and then it can be discontinued. 2. Sleep apnea. Has significant O2 desaturations with frequent apneic and hypoxic episodes. Unfortunately, I do not have titration with CPAP of 19 being the optimal support modality. Will need to reevaluate that maybe with her CPAP machine, maybe with the Trilogy machine if she does qualify for it with her spirometry and blood gases being what they are. She is unable to wear the CPAP as it ramps up, probably due to the high pressures prescribed. 3. Depression. Patient is getting depressed and somewhat frustrated. I think we need to get her up and moving, which I think will help appreciably with her mental outlook. ID opines that she should remain in reverse isolation when not actively walking in the halls but can be taken out to the halls for walking to help with strength, stamina, and ambulatory issues. PLAN: 1. Continue present regimen. 2. Check with durable medical equipment supplier regarding qualifications for Trilogy. 3. Formulate a walking regimen with Physical Therapy.
[2016-08-03] MEDS: Tiotropium 18mcg/Cap 5 Capsule Inhaler Kit INHALATION SCH (21:00)
[2016-08-03] MEDS: Albuterol-Ipratropium 3 mL Inhalation Solution NEB SCH (21:05)
[2016-08-03 21:07] VITALS: BP 114/74; PULSE 90; PULSE 91; RESP 18; O2SAT 95; O2SAT 96
[2016-08-03] MEDS: DULoxetine 30 mg DR Capsule PO SCH (21:28)
[2016-08-04] MEDS: Vancomycin 125 mg Oral Capsule PO SCH ×5 (00:47→23:36)
[2016-08-04 05:01] VITALS: BP 112/72; PULSE 75; RESP 18; O2SAT 98
--- NOTE | 2016-08-04 05:27 | NUR ---
Tearful, Wants to go home Patient tearful overnight. Patient states that she wants to go home but she feels that her discharge date is many days away. Patient stated that she has a lot of family issues right now at home with her teenage daughter. She misses her and her dog and feels like her needs support dealing with the family issues that they are having. Patient frustrated that she was told she can't go home until she gets stronger but because of her Isolation precautions she is unable to ambulate outside of her room. Patient ambulating SBA to bathroom.
[2016-08-04] MEDS: VYVANSE 70 MG PO SCH (07:44)
[2016-08-04] MEDS: Pantoprazole 40 mg ER24 Tablet PO SCH ×2 (07:45→20:59)
[2016-08-04] MEDS: [UNRECOGNIZED DRUG - OTHER] PO SCH ×4 (07:45→16:37)
[2016-08-04] MEDS: Potassium Chloride 20 mEq/15 mL 15mL Oral Soln PO SCH ×3 (07:45→16:38)
[2016-08-04] MEDS: lamoTRIgine 100 mg Tablet PO SCH ×2 (07:46→20:59)
[2016-08-04] MEDS: predniSONE 20 mg Tablet PO SCH (07:47)
[2016-08-04] MEDS: Fluticasone-Salmeterol 500-50 Inhaler INHALATION SCH ×2 (07:48→23:36)
[2016-08-04] MEDS: Insulin LISPRO High-Dose Scale SUBQ SCH ×4 (07:50→21:00)
[2016-08-04] MEDS: Insulin GLARgine 100 Unit/mL Syringe SUBQ SCH ×2 (07:51→21:00)
[2016-08-04] MEDS: Albuterol-Ipratropium 3 mL Inhalation Solution NEB SCH ×4 (08:52→20:34)
[2016-08-04 08:54] VITALS: PULSE 86; RESP 18; O2SAT 94
[2016-08-04 11:31] VITALS: PULSE 87; RESP 18; O2SAT 98
--- NOTE | 2016-08-04 11:50 | PCM.PNMED ---
Subjective Date of Service Aug 04, 2016 Subjective Patient arrives on a slight bit better today. She notes she is having more cough, productive of mucus at times, she is not sure if this is a sign of progress. Breathing overall is perhaps a little easier. She is feeling a little bit stronger looks forward to walking around the unit more today. Appetite is still good. Sleeps well at times but does awake frequently through the night Exam Vital Signs Vital Sign - Last Date Time Temp Pulse Resp B/P Pulse Ox O2 Delivery O2 Flow Rate FiO2 08/04/16 11:31 87 18 98 Nasal Cannula 3.00 08/04/16 05:01 36.3 112/72 Intake and Output 08/03/16 08/03/16 08/04/16 Cumulative From/Thru 15:00 23:00 07:00 07/23/16 15:00 - 08/04/16 06:13 Intake Total 1262 ml 473 ml 20631 ml Output Total 1400 ml 2750 ml 84817 ml Balance -138 ml -2277 ml 796 ml Intake Oral 1262 ml 473 ml 22614 ml IV Total 8269 ml Output Urine Total 1400 ml 2750 ml 47275 ml Stool Total 450 ml Urine/Stool Mix 2150 ml # Voids 9 # Bowel Movements 0 27 Exam General: Alert, Cooperative, Moderate Distress Mouth: Mucous Membranes Moist/[place] Lungs demonstrate good airflow in all lung giraldo, there is a reduction in coarse breath sounds Heart is regular rhythm and rate Abdomen: Non-tender, Non-distended Extremities: No cyanosis/clubbing/edema bilaterally, patient has ulceration/ erosion on feet bilaterally, now dressed with clean dry across. Neurological: Patient demonstrates generalized tremor of upper and lower extremities IVs and Medications Medications Reviewed: Medications were reviewed in detail Lab and Diagnostics Result Diagram: 08/03/16 0532 08/04/16 0500 Microbiology Blood cultures are negative at 24 hours Sputum culture is pending X-Rays, CTs and MRIs X-RAY CHEST ONE VIEW, PORTABLE 07/23 IMPRESSION: Right basilar opacity suggestive of pneumonia. Aspiration pneumonia cannot be excluded. Recommend interval followup to resolution and exclude presence of underlying mass lesion. Dictated by: Jackie Wing M.D. on 07/23/2016 at 16:42 Approved by: Jackie Wing M.D. on 07/23/2016 at 16:42 --- PROCEDURE: X-RAY ABDOMEN, ONE VIEW ([id number]) INDICATIONS: constipation TECHNIQUE: One view of the abdomen acquired. COMPARISON: None. FINDINGS: Surgical changes and devices: None. Bowel: Bowel gas pattern is normal. Moderate scattered stool. Soft tissues: No suspicious abdominal calcifications. Visualized solid organ contours appear normal in size. Bones: No suspicious bony lesions. IMPRESSION: Moderate scattered stool suggestive of mild constipation. No traction. Dictated by: Jackie Wing M.D. on 07/23/2016 at 16:42 Approved by: Jackie Wing M.D. on 07/23/2016 at 16:43 Cardiac Echo Impressions Echocardiogram Report Name: YOLIS LOBATO EStudy Date : 07/24/2016 Height: 6 8 in Hospital Exam Location: [facility] Weight: 2 39 lb Gender: Female BSA: 2.2 m2 : 1960 Age: 55 yrs BP: 102/5 6 mmHg Reason For Study: Possible Cardiomyopathy Performed By: Jia Chavez Referring Physician: ROSITA ALMAGUER Interpretation Summary The left ventricle is normal in size. Left ventricular systolic function is normal without focal wall motion abnormalities. The ejection fraction is estimated to be 60-65%. Assessment of diastolic parameters indicates normal left ventricular diastolic function and normal filling pressures. The right ventricle is normal in size and function. The right ventricular systolic pressure is estimated at 38 mmHg assuming a right atrial pressure of 3 mm Hg. The left atrial size is normal. Borderline right atrial enlargement. There is no significant valvular heart disease. No signficant changes in comparison with all 3 prior echo studies since 2014. Assessment & Plan Yolis Lobato is a 55 year old morbidly obese female with a complex medical history including recent CVA x2, chronic respiratory failure secondary to COPD, obstructive asthma, CHF, type II diabetes mellitus, diabetic neuropathy, previous upper extremity DVT s/p PICC line on Warfarin, seizure disorder, GERD and bipolar disorder who presents to [place] emergency department via EMS complaining of generalized weakness # Healthcare associated pneumonia. Present on admission, met criteria for HCAP hospitalization within the last 90 days. Risk factors for MRSA and Pseudomonas. - IV Vancomycin July 23- then DC'd with negative MRSA swab - IV Levaquin followed by oral, total of 8 days, DC'd yesterday by Dr Yen - Chest x-ray on 07/30 worse, now multifocal infiltrates - Currently on oxygen at 2-5-3 L per nasal cannula,her usual at home is 3 L - Swallowing evaluation by speech therapy on July 23 did not show signs of aspiration, there was some concern mention for silent aspiration given radiologic findings of right-sided infiltrates. - Dr. Yen's consult yesterday and follow up today much appreciated -- he's not sure she had bacterial pneumonia but regardless doesn't need further antibiotics for this -- repeat procalcitonin is 0.13, down from 0.5 -- urine Legionella and pneumococcal antigens he ordered yesterday were negative -- ordered Serum cryptococcal antigen which is pending --BNP slightly above normal so less likely that CHF is causing multifocal infiltrates -- ordered CBC, CRP and sed rate for tomorrow morning -- ordered a CT scan noncontrast of the chest (if shows unexplained infiltrates consult Pulmonary) -- ordered some additional basic screening labs for vasculitis and/or autoimmune processes including GREG, rheumatoid factor, an JESSIE level for sarcoid. GREG negatrive, RH positive to date. - Pulmonology, Dr. Myers was consulted in addition further evaluation of lung findings. He concurs etiologies other than infectious may be the cause of patient's current findings. And is also waiting results of serologic studies to evaluate for possible autoimmune process. No further intervention or studies planned at this time. - Modified barium swallow was ordered demonstrating no evidence of silent aspiration/reflux aspiration, which would be consistent with radiologic findings to date. - Patient continues on supplemental oxygen - Ideally she will benefit from Trilogy breathing machine for submental support , this is pending insurance authorization I will make from much safer discharge if able to be achieved as patient appears to be inadequately ventilated with current CPAP machine. - We will continue to monitor appreciate specialist consultation very much. ID lean consultant signed off given patient demonstrate no evidence of acute infection, will continue to look forward to the assistance of operations tech Dr. Myers. # Generalized weakness. Present on admission, Multifactorial metabolic derangements and poor baseline function with deconditioning RLS, resting tremors , obesity in addition to C. difficile colitis. probable CVA in the past. -Likely d/c to SNF upon d/c, but difficulty gaining approval from insurance -daily PT to increase mobility, patient is now allowed to ambulate out of room as per infectious disease recommendations, but otherwise muscle in isolation # C.diff colitis, PCR+, -Continue vanc po qid for total 14days (started July 26) - Diarrhea is improved. Certainly may be contributing to weakness as noted above. # Hypokalemia. Present on admission, due to GI fluid loss, now resolved after some potassium replacement - Continue to monitor # Insulin-dependent diabetes mellitus with peripheral neuropathy. a1c10.6 -Blood sugars mostly in the 100s - 25unit Lantus each morning started on July 26 and then increased to 40 July 29. Also added 10 units at HS July 29 (she takes Lantus 3 times a day at home for a total of at least 90 units daily) -continue high dose correctional Lispro algorithm, -continuing Lyrica 150 mg bid # Suspected obesity hypoventilation/KENAN on CPAP therapy, chronic. Presumed stable - Patient has own CPAP for use, but based on elevated CO2, and overall poor respiratory efforts is likely that this is not sufficient for adequate ventilation. - As noted above pulmonology has recommended patient be considered for trilogy machine however this is pending insurance authorization and ABG may be needed for approval. # COPD. Presumed stable - continuing Neb treatments but does have mild wheezing so we will change to 4 times a day scheduled instead of just as needed - Added prednisone due to heavy wheezing july 27 and responding (although she denies) - continue Budesonide, Fluticasone # History of seizures/Restless Leg syndrome, chronic. Presumed stable - continuing Mirapex, Topamax and Lamotrigine # tremor - Continue Mysoline. Consider Lyrica as the possible cause # ADD - Continue Adderall. Resume home dosing of Vyvanse here. # anemia of chronic disease # right knee and left plantar chronic skin ulcers - Wound care consulted to evaluate and treat foot ulcerations Disposition: SNF once medically stable and if insurance will authorize Pain Evaluation: Adequate Pain Control GI Prophylaxis: Proton Pump Inhibitor VTE Prophylaxis: Sub-Q Enoxaparin VTE Mechanical Devices: Intermittant Pneumatic CD Resuscitation Status: CPR: Attempt Resuscitation Time spent 30 minutes Vikram Almanza DO Aug 04, 2016 11:50
--- NOTE | 2016-08-04 16:21 | PROG NOTE ---
[address] [address] PROGRESS NOTE PATIENT: JAILENE LOBATO : 1960 MR#: [id number] ADMIT: 07/23/2016 JOB ID: [id number] DATE: 08/04/2016 PROBLEM: 1. Pneumonitis. 2. Obesity. 3. Hypoxemia. 4. Obesity hypoventilation syndrome. SUBJECTIVE: Breathing more comfortably. Cough essentially resolved. Only occurs after breathing treatments, but overall the breathing treatments continue to be helpful. No sputum production. No diarrhea. No bowel movements so far today, but yesterday had two formed bowel movements. OBJECTIVE: Temperature 36.3. Pulse mid 80s. Respiratory rate 18. Blood pressure 112/72. O2 sat on 3 L of oxygen is 97% to 98%. I and O shows 1.4 L in, 2.4 L out. General appearance: No acute distress. Sitting upright in bed. Chest: Fair breath sounds bilaterally. Somewhat diminished at the bases. Maybe a bit more diminished at the right base posteriorly. However, no wheeze. No use of accessory muscles. No tracheal tug. Heart: Regular rhythm. Heart tones normal. Abdomen is soft. Bowel tones present. LABORATORY: Shows a sodium 137, potassium 3.3, chloride 87, CO2 34, BUN 24, creatinine 1, calcium 9.7. ASSESSMENT: 1. Pneumonitis. The patient continues to improve. Oxygenation quite good at this point. 2. Sleep apnea. Will need to evaluate her nocturnal oxygen requirements. CPAP of 19 probably makes it difficult for her breathing and will figure out whether a lower CPAP or possibly using Trilogy is what needs to be accomplished. Will need to assess her suitability and coverage for the Trilogy system. 3. Hypokalemia. K remains somewhat low in spite of increasingly aggressive supplementation. Will check magnesium. PLAN: 1. Check for criteria for a Trilogy. 2. Evaluate needs for end expiratory pressure support with her sleep apnea. 3. Check magnesium. 4. Continue to have Physical Therapy see the patient for ambulation and strengthening.
[2016-08-04 16:55] VITALS: PULSE 92; RESP 18; O2SAT 95
--- NOTE | 2016-08-04 17:12 | NUR ---
Hyperglycemia: Patient had hyperglycemia today. She had extra helping of potatoes and fruit and sugary juice this afternoon. Humalog insulin sliding scale administered 12units. Will recheck her Bs this evening.
[2016-08-04 17:28] VITALS: BP 111/69; PULSE 96; RESP 18; O2SAT 97
[2016-08-04] MEDS ORDERED: Insulin LISPRO 300 Unit/3 mL Inj SUBQ ONE ×2 (18:35→19:45)
--- NOTE | 2016-08-04 18:49 | NUR ---
Blood Sugar: Rechecked patients blood sugar 1 hour after 512 reading and it was 432 . Per MD order patient was given 10 units of insulin. Will relay this information to the NOC shift.
[2016-08-04 20:34] VITALS: PULSE 90; RESP 18; O2SAT 96
[2016-08-04] MEDS: DULoxetine 30 mg DR Capsule PO SCH (20:59)
[2016-08-04] MEDS: Tiotropium 18mcg/Cap 5 Capsule Inhaler Kit INHALATION SCH (23:37)
[2016-08-05] VITALS (7 sets, daily range): BP systolic 106–125; BP diastolic 63–74; PULSE 77–96; RESP 18–20; O2SAT 94–99
--- NOTE | 2016-08-05 05:16 | NUR ---
activity/shower/blood sugar Patient upset that she was unable to walk today and shower due to staff being "too busy." Notified charge nurse and NAC made aware. NAC available to set patient up for shower and help her ambulate the hallways at 1999. Patient states it is too late for her to ambulate and shower at this time and she would like to in the AM. RT in to give patient neb treatment. patient informed RT that she didn't want to shower because she didn't want a male caregiver to help her in the shower. I went in to talk to patient offered female caregiver assistance and she denied the claim stating "its just too late tonight." Patients blood sugar 349 at 1945. patient was given 10 units of s/s and 10 units of lantus per orders.Patient encouraged to avoid sugary snacks. at 0400 patients blood sugar 151. will continue to monitor.
[2016-08-05] MEDS: Vancomycin 125 mg Oral Capsule PO SCH ×3 (06:13→17:41)
[2016-08-05] MEDS: Albuterol-Ipratropium 3 mL Inhalation Solution NEB SCH ×4 (07:35→20:10)
[2016-08-05 07:51] LABS: BASOPHILS % (AUTO) 0.3 % (0-3); EOSINOPHILS % (AUTO) 2.9 % (0-5); MONOCYTES % (AUTO) 7.9 % (4-12); Mean Corpuscular Hemoglobin 29.5 pg (27.0-35.0); Mean Corpuscular Volume 92.3 fL (81-100); NEUTROPHILS % (AUTO) 64.8 % (40-74); Platelet Count 680 bil/L (150-400)
--- NOTE | 2016-08-05 08:17 | PCM.PNMED ---
Subjective Date of Service Aug 05, 2016 Subjective This morning pt has two complaints: wheezing, perhaps worse than yesterday, though no significant worsening of shortness of breath or increased work of breathing. Also notes pain of left shoulder, worse with motion of arm but not worsening with ambulation or breathing, she woke up with this morning. Exam Vital Signs Vital Sign - Last Date Time Temp Pulse Resp B/P Pulse Ox O2 Delivery O2 Flow Rate FiO2 08/05/16 07:35 90 20 95 Nasal Cannula 3.00 08/05/16 04:45 36.7 106/63 Intake and Output 08/04/16 08/04/16 08/05/16 Cumulative From/Thru 15:00 23:00 07:00 07/23/16 15:00 - 08/05/16 05:55 Intake Total 760 ml 600 ml 69483 ml Output Total 600 ml 2900 ml 01417 ml Balance 160 ml -2300 ml -1344 ml Intake Oral 760 ml 600 ml 95496 ml IV Total 8269 ml Output Urine Total 600 ml 2900 ml 73599 ml Stool Total 450 ml Urine/Stool Mix 2150 ml # Voids 9 # Bowel Movements 27 Exam General: Alert, Cooperative, Moderate Distress Mouth: Mucous Membranes Moist/[place] Lungs demonstrate good airflow in all lung giraldo,(+)expiratory wheezing in upper lungs giraldo. Heart is regular rhythm and rate Abdomen: Non-tender, Non-distended Extremities: No cyanosis/clubbing/edema bilaterally, patient has ulceration/ erosion on feet bilaterally, now dressed with clean dry across. Left shoulder is not red or swollen, but tender on palpation of acromia-clavicular joint and discomfort with passive ROM. Neurological: Patient demonstrates generalized tremor of upper and lower extremities IVs and Medications Medications Reviewed: Medications were reviewed in detail Lab and Diagnostics Result Diagram: 08/03/16 0532 08/04/16 0500 Microbiology Blood cultures are negative at 24 hours Sputum culture is pending X-Rays, CTs and MRIs X-RAY CHEST ONE VIEW, PORTABLE 07/23 IMPRESSION: Right basilar opacity suggestive of pneumonia. Aspiration pneumonia cannot be excluded. Recommend interval followup to resolution and exclude presence of underlying mass lesion. Dictated by: Jackie Wing M.D. on 07/23/2016 at 16:42 Approved by: Jackie Wing M.D. on 07/23/2016 at 16:42 --- PROCEDURE: X-RAY ABDOMEN, ONE VIEW ([id number]) INDICATIONS: constipation TECHNIQUE: One view of the abdomen acquired. COMPARISON: None. FINDINGS: Surgical changes and devices: None. Bowel: Bowel gas pattern is normal. Moderate scattered stool. Soft tissues: No suspicious abdominal calcifications. Visualized solid organ contours appear normal in size. Bones: No suspicious bony lesions. IMPRESSION: Moderate scattered stool suggestive of mild constipation. No traction. Dictated by: Jackie Wing M.D. on 07/23/2016 at 16:42 Approved by: Jackie Wing M.D. on 07/23/2016 at 16:43 Cardiac Echo Impressions Echocardiogram Report Name: YOLIS LOBATO EStudy Date : 07/24/2016 Height: 6 8 in Hospital Exam Location: [facility] Weight: 2 39 lb Gender: Female BSA: 2.2 m2 : 1960 Age: 55 yrs BP: 102/5 6 mmHg Reason For Study: Possible Cardiomyopathy Performed By: Jia Chavez Referring Physician: ROSITA ALMAGUER Interpretation Summary The left ventricle is normal in size. Left ventricular systolic function is normal without focal wall motion abnormalities. The ejection fraction is estimated to be 60-65%. Assessment of diastolic parameters indicates normal left ventricular diastolic function and normal filling pressures. The right ventricle is normal in size and function. The right ventricular systolic pressure is estimated at 38 mmHg assuming a right atrial pressure of 3 mm Hg. The left atrial size is normal. Borderline right atrial enlargement. There is no significant valvular heart disease. No signficant changes in comparison with all 3 prior echo studies since 2014. Assessment & Plan Yolis Lobato is a 55 year old morbidly obese female with a complex medical history including recent CVA x2, chronic respiratory failure secondary to COPD, obstructive asthma, CHF, type II diabetes mellitus, diabetic neuropathy, previous upper extremity DVT s/p PICC line on Warfarin, seizure disorder, GERD and bipolar disorder who presents to [facility] emergency department via EMS complaining of generalized weakness # Healthcare associated pneumonia. Present on admission, met criteria for HCAP hospitalization within the last 90 days. Risk factors for MRSA and Pseudomonas. - IV Vancomycin July 23- then DC'd with negative MRSA swab - IV Levaquin followed by oral, total of 8 days, DC'd yesterday by Dr Yen - Chest x-ray on 07/30 worse, now multifocal infiltrates - Currently on oxygen at 2-5-3 L per nasal cannula,her usual at home is 3 L - Swallowing evaluation by speech therapy on July 23 did not show signs of aspiration, there was some concern mention for silent aspiration given radiologic findings of right-sided infiltrates. - Dr. Yen's consult yesterday and follow up today much appreciated -- he's not sure she had bacterial pneumonia but regardless doesn't need further antibiotics for this -- repeat procalcitonin is 0.13, down from 0.5 -- urine Legionella and pneumococcal antigens he ordered yesterday were negative -- ordered Serum cryptococcal antigen which is pending --BNP slightly above normal so less likely that CHF is causing multifocal infiltrates -- ordered CBC, CRP and sed rate for tomorrow morning -- ordered a CT scan noncontrast of the chest (if shows unexplained infiltrates consult Pulmonary) -- ordered some additional basic screening labs for vasculitis and/or autoimmune processes including GREG, rheumatoid factor, an JESSIE level for sarcoid. GREG negatrive, RH positive to date. - Pulmonology, Dr. Myers was consulted in addition further evaluation of lung findings. He concurs etiologies other than infectious may be the cause of patient's current findings. And is also waiting results of serologic studies to evaluate for possible autoimmune process. No further intervention or studies planned at this time. - Modified barium swallow was ordered demonstrating no evidence of silent aspiration/reflux aspiration, which would be consistent with radiologic findings to date. - Patient continues on supplemental oxygen - Ideally she will benefit from Trilogy breathing machine for submental support , this is pending insurance authorization I will make from much safer discharge if able to be achieved as patient appears to be inadequately ventilated with current CPAP machine. - We will continue to monitor appreciate specialist consultation very much. ID insurance healthcare consultant signed off given patient demonstrate no evidence of acute infection, will continue to look forward to the assistance of case management coordinator Dr. Myers. # Generalized weakness. Present on admission, Multifactorial metabolic derangements and poor baseline function with deconditioning RLS, resting tremors , obesity in addition to C. difficile colitis. probable CVA in the past. -Likely d/c to SNF upon d/c, but difficulty gaining approval from insurance -daily PT to increase mobility, patient is now allowed to ambulate out of room as per infectious disease recommendations, but otherwise should remain in isolation # C.diff colitis, PCR+, -Continue vanc po qid for total 14days (started July 26) - Diarrhea is essentially resolved. Certainly may be contributing to weakness as noted above. #Shoulder pain: - PRN Percocet - Ice PRN. # Hypokalemia. Present on admission, due to GI fluid loss, now resolved after some potassium replacement - Continue to monitor # Insulin-dependent diabetes mellitus with peripheral neuropathy. a1c10.6 -Blood sugars mostly in the 100s - 25unit Lantus each morning started on July 26 and then increased to 40 July 29. Also added 10 units at HS July 29 (she takes Lantus 3 times a day at home for a total of at least 90 units daily) -continue high dose correctional Lispro algorithm, -continuing Lyrica 150 mg bid # Suspected obesity hypoventilation/KENAN on CPAP therapy, chronic. Presumed stable - Patient has own CPAP for use, but based on elevated CO2, and overall poor respiratory efforts is likely that this is not sufficient for adequate ventilation. - As noted above pulmonology has recommended patient be considered for trilogy machine however this is pending insurance authorization and ABG may be needed for approval. # COPD. Presumed stable - continuing Neb treatments but does have mild wheezing so we will change to 4 times a day scheduled instead of just as needed - Added prednisone due to heavy wheezing july 27 and responding (although she denies) - continue Budesonide, Fluticasone # History of seizures/Restless Leg syndrome, chronic. Presumed stable - continuing Mirapex, Topamax and Lamotrigine # tremor - Continue Mysoline. Consider Lyrica as the possible cause # ADD - Continue Adderall. Resume home dosing of Vyvanse here. # anemia of chronic disease # right knee and left plantar chronic skin ulcers - Wound care consulted to evaluate and treat foot ulcerations Disposition: SNF once medically stable and if insurance will authorize Pain Evaluation: Adequate Pain Control GI Prophylaxis: Proton Pump Inhibitor VTE Prophylaxis: Sub-Q Enoxaparin VTE Mechanical Devices: Intermittant Pneumatic CD Resuscitation Status: CPR: Attempt Resuscitation Time spent 30 minutes Vikram Almanza DO Aug 05, 2016 08:17
[2016-08-05] MEDS ORDERED: Potassium Chloride Inj 30 MEQ in Dextrose 5% 500 ML IV ONE (09:10)
[2016-08-05] MEDS: Insulin LISPRO High-Dose Scale SUBQ SCH ×4 (09:38→22:00)
[2016-08-05] MEDS: Fluticasone-Salmeterol 500-50 Inhaler INHALATION SCH ×2 (09:39→20:36)
[2016-08-05] MEDS: Pantoprazole 40 mg ER24 Tablet PO SCH ×2 (09:40→20:35)
[2016-08-05] MEDS: [UNRECOGNIZED DRUG - OTHER] PO SCH ×4 (09:41→16:23)
[2016-08-05] MEDS: lamoTRIgine 100 mg Tablet PO SCH ×2 (09:41→20:32)
[2016-08-05] MEDS: Insulin GLARgine 100 Unit/mL Syringe SUBQ SCH ×2 (09:42→21:58)
[2016-08-05] MEDS: predniSONE 20 mg Tablet PO SCH (09:44)
[2016-08-05] MEDS: Potassium Chloride 20 mEq/15 mL 15mL Oral Soln PO SCH ×3 (11:18→17:39)
[2016-08-05] MEDS: oxyCODONE-Acetamin 5-325 mg Tablet PO PRN ×2 (11:19→22:09)
--- NOTE | 2016-08-05 11:53 | PCM.PNMED ---
Subjective Date of Service Aug 05, 2016 Subjective Patient reports quality and quantity of cough much improved, no sputum. Breathing treatments seem to bring on the cough, but then her breathing is improved. She reports now loose formed stools, no further diarrhea today or over the weekend. Exam Vital Signs Vital Sign - Last Date Time Temp Pulse Resp B/P Pulse Ox O2 Delivery O2 Flow Rate FiO2 08/05/16 07:35 90 20 95 Nasal Cannula 3.00 08/05/16 04:45 36.7 106/63 Intake and Output 08/04/16 08/04/16 08/05/16 Cumulative From/Thru 15:00 23:00 07:00 07/23/16 15:00 - 08/05/16 05:55 Intake Total 760 ml 600 ml 01780 ml Output Total 600 ml 2900 ml 56579 ml Balance 160 ml -2300 ml -1344 ml Intake Oral 760 ml 600 ml 05963 ml IV Total 8269 ml Output Urine Total 600 ml 2900 ml 04964 ml Stool Total 450 ml Urine/Stool Mix 2150 ml # Voids 9 # Bowel Movements 27 Exam General appearance: No acute distress. Sitting upright in bed. Chest: Fair breath sounds bilaterally. Somewhat diminished at the bases. Maybe a bit more diminished at the right base posteriorly. However, no wheeze. No use of accessory muscles. No tracheal tug. Heart: Regular rhythm. Heart tones normal. Abdomen is soft. Bowel tones present. IVs and Medications Medications Reviewed: Medications were reviewed in detail Lab and Diagnostics Result Diagram: 08/05/16 0738 08/05/16 0738 Microbiology Blood cultures are negative at 24 hours Sputum culture is pending X-Rays, CTs and MRIs X-RAY CHEST ONE VIEW, PORTABLE 07/23 IMPRESSION: Right basilar opacity suggestive of pneumonia. Aspiration pneumonia cannot be excluded. Recommend interval followup to resolution and exclude presence of underlying mass lesion. Dictated by: Jackie Wing M.D. on 07/23/2016 at 16:42 Approved by: Jackie Wing M.D. on 07/23/2016 at 16:42 --- PROCEDURE: X-RAY ABDOMEN, ONE VIEW ([id number]) INDICATIONS: constipation TECHNIQUE: One view of the abdomen acquired. COMPARISON: None. FINDINGS: Surgical changes and devices: None. Bowel: Bowel gas pattern is normal. Moderate scattered stool. Soft tissues: No suspicious abdominal calcifications. Visualized solid organ contours appear normal in size. Bones: No suspicious bony lesions. IMPRESSION: Moderate scattered stool suggestive of mild constipation. No traction. Dictated by: Jackie Wing M.D. on 07/23/2016 at 16:42 Approved by: Jackie Wing M.D. on 07/23/2016 at 16:43 Cardiac Echo Impressions Echocardiogram Report Name: YOLIS LOBATO EStudy Date : 07/24/2016 Height: 6 8 in Hospital Exam Location: [facility] Weight: 2 39 lb Gender: Female BSA: 2.2 m2 : 1960 Age: 55 yrs BP: 102/5 6 mmHg Reason For Study: Possible Cardiomyopathy Performed By: Jia Chavez Referring Physician: ROSITA ALMAGUER Interpretation Summary The left ventricle is normal in size. Left ventricular systolic function is normal without focal wall motion abnormalities. The ejection fraction is estimated to be 60-65%. Assessment of diastolic parameters indicates normal left ventricular diastolic function and normal filling pressures. The right ventricle is normal in size and function. The right ventricular systolic pressure is estimated at 38 mmHg assuming a right atrial pressure of 3 mm Hg. The left atrial size is normal. Borderline right atrial enlargement. There is no significant valvular heart disease. No signficant changes in comparison with all 3 prior echo studies since 2014. Assessment & Plan Yolis Lobato is a 55 year old morbidly obese female with a complex medical history including recent CVA x2, chronic respiratory failure secondary to COPD, obstructive asthma, CHF, type II diabetes mellitus, diabetic neuropathy, previous upper extremity DVT s/p PICC line on Warfarin, seizure disorder, GERD and bipolar disorder who presents to [facility] emergency department via EMS complaining of generalized weakness ASSESSMENT: 1. Pneumonitis with chronic hypercapnia. Cough is minimal. Oxygenation quite good at this point, back to baseline oxygen need of 3 liters by nasal cannula, but patient remains chronically hypercapnic. She has recorded diagnoses as an outpatient of mild persistent asthma with status asthmaticus and COPD. There are no referrals or visits to Pulmonology, no formal PFTs in her records. 2. Sleep apnea. Lisa Terry reports she is using her CPAP 9+ hours daily. ABG with pCO2 of 50.1 despite adequate oxygenation and use of CPAP. 3. Hypokalemia. K+ remains somewhat low in spite of supplementation. Not secondary to low Mg: Magnesium 2.2 on 08/04/16 and 2.0 at admission on 07/29/16. 4. Deconditioning, long hospitalization of patient who is already minimally mobile at home. PLAN: 1. RT has approval for Trilogy with insurance approval from [employer]. 2. Outpatient reevaluation of sleep apnea is recommended. 3. Continue supplementation with Potassium 40meq PO daily 4. Continue to have Physical Therapy see the patient for ambulation and strengthening. Disposition: SNF once medically stable and if insurance will authorize Pain Evaluation: Adequate Pain Control GI Prophylaxis: Proton Pump Inhibitor VTE Prophylaxis: Sub-Q Enoxaparin VTE Mechanical Devices: Intermittant Pneumatic CD Resuscitation Status: CPR: Attempt Resuscitation Lucho Thapa DO Aug 05, 2016 11:53 Lucho Thapa DO Aug 05, 2016 11:53 Lucho Thapa DO Aug 05, 2016 11:53
--- NOTE | 2016-08-05 12:30 | NUR ---
Pain At approx 1115, Pt reports shoulder pain 10/10. Pt resting quietly in bed, conversing with staff. 2 tabs Percocet given as ordered by MD. Pt declined offer of ice packs. No decreased in pain level. Pt reports Percocet does not work well for her, declined offers of additional interventions. Will continue to monitor.
[2016-08-05] MEDS: VYVANSE 70 MG PO SCH (13:02)
--- NOTE | 2016-08-05 13:18 | NUR ---
NUTRITION FOLLOW-UP: ASSESS: 55 YO Female admitted with pneumonia, weakness, constipation. PO intake has been good at 100% of meals. PMHX: Type II Diabetes, COPD, CVA, CHF, DVT, Morbid obesity, obstructive asthma, diabetic neuropathy, seizure disorder, GERD. DIET: Diabetic Heart Healthy. PO 100%. LABS: Reviewed. K+ 3.1, BUN 32, Cr 1.06, Glu 198 MEDS: Reviewed GI:BM x 1 (08/03) WEIGHT: 104.3 kg. admit: 109 kg BMI: 36.4 IBW: 63.64 kg. EST.NEEDS: Obesity/COPD Kcal: 2097-9567 (22-25 kcal/kg BW) Pro: 75-95 g (1.2-1.5 g/kg IBW) NUTRITION DIAGNOSIS: (1) Altered nutrition related laboratory values related to uncontrolled diabetes as evidenced by glucose 245, A1c 10.6 --PERSISTS. INTERVENTION: (1) Attempted diabetic education 06/18--Pt declined. MONITOR/EVALUATE: PO intake, labs, nutritional status. Follow per low nutritional risk guidelines.
[2016-08-05 14:12] LABS: Antiproteinase 3 (PR-3) Abs <3.5 U/mL (0.0-3.5); Perinuclear (P-ANCA) <1:20 titer (Neg:<1:20)
--- NOTE | 2016-08-05 18:10 | NUR ---
Dressing change Pt very reluctant to allow this RN to complete dressing changes on R Knee and L foot. Reports has been completed by wound care only. This RN reviewed the instructions regarding wound care with pt. Educated pt on the importance of allowing daily dressing change to to be completed. This RN changed the dressing on R knee, however pt requested the L foot dressing be delayed until after dinner as her tray was just delivered. Will continue to monitor, call light in reach
--- NOTE | 2016-08-05 18:24 | NUR ---
Ambulation Pt ambulated in the hallway with PT to the front of [facility] and back, steady gait, no signs of weakness. Pt tolerated activity well. Okay for staff to ambulate with pt at this time. Encouraged pt to contact staff for ambulation, will continue to monitor.
[2016-08-05] MEDS: Tiotropium 18mcg/Cap 5 Capsule Inhaler Kit INHALATION SCH (20:33)
[2016-08-05] MEDS: DULoxetine 30 mg DR Capsule PO SCH (20:34)
[2016-08-05] MEDS: Fluticasone 0.05% 15 Spray/2 Gm 16 Gm Nasal Spray NASAL PRN (22:09)
[2016-08-06] VITALS (7 sets, daily range): BP systolic 95–109; BP diastolic 55–68; PULSE 77–96; RESP 18–20; O2SAT 95–98
[2016-08-06] MEDS: Vancomycin 125 mg Oral Capsule PO SCH ×4 (02:06→21:33)
--- NOTE | 2016-08-06 05:56 | NUR ---
Resting comfortably most of the night. Did not want to ambulate in hallway over night, but walked to the bathroom with SBA several times, tolerating well.
--- NOTE | 2016-08-06 05:57 | NUR ---
Dressing Change Dressing change to bilateral feet over night. Patient has been refusing to let staff change it, was persuaded over night and agreed. Patient tolerated well.
[2016-08-06] MEDS: Albuterol-Ipratropium 3 mL Inhalation Solution NEB SCH ×4 (08:01→21:40)
[2016-08-06] MEDS: Insulin GLARgine 100 Unit/mL Syringe SUBQ SCH ×2 (08:28→21:53)
[2016-08-06] MEDS: Insulin LISPRO High-Dose Scale SUBQ SCH ×4 (08:29→21:52)
[2016-08-06] MEDS: VYVANSE 70 MG PO SCH (08:33)
[2016-08-06] MEDS: Pantoprazole 40 mg ER24 Tablet PO SCH ×2 (08:43→21:35)
[2016-08-06] MEDS: predniSONE 20 mg Tablet PO SCH (08:44)
[2016-08-06] MEDS: lamoTRIgine 100 mg Tablet PO SCH ×2 (08:46→21:28)
[2016-08-06] MEDS: [UNRECOGNIZED DRUG - OTHER] PO SCH ×4 (08:47→15:41)
[2016-08-06] MEDS: Potassium Chloride 20 mEq/15 mL 15mL Oral Soln PO SCH ×3 (08:50→17:36)
[2016-08-06] MEDS: Fluticasone-Salmeterol 500-50 Inhaler INHALATION SCH ×2 (08:50→21:21)
[2016-08-06] MEDS: Fluticasone 0.05% 15 Spray/2 Gm 16 Gm Nasal Spray NASAL PRN ×2 (08:51→21:21)
--- NOTE | 2016-08-06 09:22 | NUR ---
Social Work: readiness for discharge Data:EMR reviewed. Pt is on day 14 of hospitalization for pneumonia per H&P. MD anticipates 1-2 more days for pt. Pulmonary continues to be involved and is working with RT on getting pt a trilogy through [facility]. PT has seen pt and cleared pt for home with services. Pt has been set up with services through [facility] for RN,PT,OT, and ADVOCACY DIRECTOR. Pt and agreeable to plan. MD to fill out F2F. SW will continue to follow. Assessment: Pt who is independent at baseline. Plan: Pt to discharge home when medically stable via POV. . Pt has been set up with [facility] RN, PT, OT, ADVOCACY DIRECTOR. Pt has home O2 through [facility]. Pulmonary and RT working on trilogy through [facility]. SW will continue to follow. SVETLANA Roldan
[2016-08-06 11:03] LABS: BASOPHILS % (AUTO) 0.2 % (0-3); EOSINOPHILS % (AUTO) 2.2 % (0-5); MONOCYTES % (AUTO) 6.6 % (4-12); Mean Corpuscular Hemoglobin 29.4 pg (27.0-35.0); Mean Corpuscular Volume 91.1 fL (81-100); NEUTROPHILS % (AUTO) 72.4 % (40-74); Platelet Count 598 bil/L (150-400)
--- NOTE | 2016-08-06 11:38 | PCM.PNMED ---
Subjective Date of Service Aug 06, 2016 Subjective Patient reports feeling back to baseline except that her walk with the physical therapist did leave her very tired. She is on 3 liters of O2 by nasal cannula which is what she uses in the daytime at home. Exam Vital Signs Vital Sign - Last Date Time Temp Pulse Resp B/P Pulse Ox O2 Delivery O2 Flow Rate FiO2 08/06/16 11:31 89 20 96 Nasal Cannula 3.00 08/06/16 05:44 36.6 95/55 Intake and Output 08/05/16 08/05/16 08/06/16 Cumulative From/Thru 15:00 23:00 07:00 07/23/16 15:00 - 08/06/16 06:38 Intake Total 2286 ml 863 ml 52510 ml Output Total 1300 ml 2000 ml 21389 ml Balance 986 ml -1137 ml -1495 ml Intake Oral 1300 ml 863 ml 86569 ml IV Total 986 ml 9255 ml Output Urine Total 1300 ml 2000 ml 49195 ml Stool Total 450 ml Urine/Stool Mix 2150 ml # Voids 9 # Bowel Movements 0 27 Exam General appearance: No acute distress. Sitting upright in bed. Chest: Fair breath sounds bilaterally. Somewhat diminished at the bases. Maybe a bit more diminished at the right base posteriorly. No wheeze. No use of accessory muscles. No tracheal tug. Heart: Regular rhythm. Heart tones normal. Abdomen is soft. Bowel tones present. Lab and Diagnostics Result Diagram: 08/06/16 1040 08/05/16 0738 Microbiology Blood cultures are negative at 24 hours Sputum culture is pending X-Rays, CTs and MRIs X-RAY CHEST ONE VIEW, PORTABLE 07/23 IMPRESSION: Right basilar opacity suggestive of pneumonia. Aspiration pneumonia cannot be excluded. Recommend interval followup to resolution and exclude presence of underlying mass lesion. Dictated by: Jackie Wing M.D. on 07/23/2016 at 16:42 Approved by: Jackie Wing M.D. on 07/23/2016 at 16:42 --- PROCEDURE: X-RAY ABDOMEN, ONE VIEW ([id number]) INDICATIONS: constipation TECHNIQUE: One view of the abdomen acquired. COMPARISON: None. FINDINGS: Surgical changes and devices: None. Bowel: Bowel gas pattern is normal. Moderate scattered stool. Soft tissues: No suspicious abdominal calcifications. Visualized solid organ contours appear normal in size. Bones: No suspicious bony lesions. IMPRESSION: Moderate scattered stool suggestive of mild constipation. No traction. Dictated by: Jackie Wing M.D. on 07/23/2016 at 16:42 Approved by: Jackie Wing M.D. on 07/23/2016 at 16:43 Cardiac Echo Impressions Echocardiogram Report Name: YOLIS LOBATO EStudy Date : 07/24/2016 Height: 6 8 in Hospital Exam Location: [facility] Weight: 2 39 lb Gender: Female BSA: 2.2 m2 : 1960 Age: 55 yrs BP: 102/5 6 mmHg Reason For Study: Possible Cardiomyopathy Performed By: Jia Chavez Referring Physician: ROSITA ALMAGUER Interpretation Summary The left ventricle is normal in size. Left ventricular systolic function is normal without focal wall motion abnormalities. The ejection fraction is estimated to be 60-65%. Assessment of diastolic parameters indicates normal left ventricular diastolic function and normal filling pressures. The right ventricle is normal in size and function. The right ventricular systolic pressure is estimated at 38 mmHg assuming a right atrial pressure of 3 mm Hg. The left atrial size is normal. Borderline right atrial enlargement. There is no significant valvular heart disease. No signficant changes in comparison with all 3 prior echo studies since 2014. Assessment & Plan Yolis Lobato is a 55 year old morbidly obese female with a complex medical history including recent CVA x2, chronic respiratory failure secondary to COPD, obstructive asthma, CHF, type II diabetes mellitus, diabetic neuropathy, previous upper extremity DVT s/p PICC line on Warfarin, seizure disorder, GERD and bipolar disorder who presents to [facility] emergency department via EMS complaining of generalized weakness ASSESSMENT: 1. Pneumonitis with chronic hypercapnia. Cough is minimal. Oxygenation quite good at this point, back to baseline oxygen need of 3 liters by nasal cannula, but patient remains chronically hypercapnic. She has recorded diagnoses as an outpatient of mild persistent asthma with status asthmaticus and COPD. There are no referrals or visits to Pulmonology, no formal PFTs in her records. 2. Sleep apnea. Lisa Terry reports she is using her CPAP 9+ hours daily. ABG with pCO2 of 50.1 despite adequate oxygenation and use of CPAP. 3. Hypokalemia. K+ remains somewhat low in spite of supplementation. Not secondary to low Mg: Magnesium 2.2 on 08/04/16 and 2.0 at admission on 07/29/16. 4. Deconditioning, long hospitalization of patient who is already minimally mobile at home. PLAN: 1. RT has approval for Trilogy with insurance approval from [employer]. 2. Outpatient reevaluation of sleep apnea is recommended. 3. Continue supplementation with Potassium 40meq PO daily 4. Continue to have Physical Therapy see the patient for ambulation and strengthening. Disposition: PT has recommended discharge with home health and home physical therapy. She is clear for discharge from a pulmonary perspective. Pain Evaluation: Adequate Pain Control GI Prophylaxis: Proton Pump Inhibitor VTE Prophylaxis: Sub-Q Enoxaparin VTE Mechanical Devices: Intermittant Pneumatic CD Resuscitation Status: CPR: Attempt Resuscitation Lucho Thapa DO Aug 06, 2016 11:38
--- NOTE | 2016-08-06 11:43 | PCM.PNMED ---
Subjective Date of Service Aug 06, 2016 Subjective clinically improving better strength, ambulating well with PT Now recommending home DC in place of SNF Breathing functions till labored, but also noted to be improved. Exam Vital Signs Vital Sign - Last Date Time Temp Pulse Resp B/P Pulse Ox O2 Delivery O2 Flow Rate FiO2 08/06/16 11:31 89 20 96 Nasal Cannula 3.00 08/06/16 05:44 36.6 95/55 Intake and Output 08/05/16 08/05/16 08/06/16 Cumulative From/Thru 15:00 23:00 07:00 07/23/16 15:00 - 08/06/16 06:38 Intake Total 2286 ml 863 ml 75730 ml Output Total 1300 ml 2000 ml 22210 ml Balance 986 ml -1137 ml -1495 ml Intake Oral 1300 ml 863 ml 89225 ml IV Total 986 ml 9255 ml Output Urine Total 1300 ml 2000 ml 46628 ml Stool Total 450 ml Urine/Stool Mix 2150 ml # Voids 9 # Bowel Movements 0 27 Exam General: Alert, Cooperative, no acute Distress Mouth: Mucous Membranes Moist/[place] Lungs demonstrate good airflow in all lung giraldo,reduced wheezing in upper lung giraldo. Heart is regular rhythm and rate Abdomen: Non-tender, Non-distended Extremities: No cyanosis/clubbing/edema bilaterally, Neurological: Patient demonstrates generalized tremor of upper and lower extremities IVs and Medications Medications Reviewed: Medications were reviewed in detail Lab and Diagnostics Result Diagram: 08/06/16 1040 08/05/16 0738 Microbiology Blood cultures are negative at 24 hours Sputum culture is pending X-Rays, CTs and MRIs X-RAY CHEST ONE VIEW, PORTABLE 07/23 IMPRESSION: Right basilar opacity suggestive of pneumonia. Aspiration pneumonia cannot be excluded. Recommend interval followup to resolution and exclude presence of underlying mass lesion. Dictated by: Jackie Wing M.D. on 07/23/2016 at 16:42 Approved by: Jackie Wing M.D. on 07/23/2016 at 16:42 --- PROCEDURE: X-RAY ABDOMEN, ONE VIEW ([id number]) INDICATIONS: constipation TECHNIQUE: One view of the abdomen acquired. COMPARISON: None. FINDINGS: Surgical changes and devices: None. Bowel: Bowel gas pattern is normal. Moderate scattered stool. Soft tissues: No suspicious abdominal calcifications. Visualized solid organ contours appear normal in size. Bones: No suspicious bony lesions. IMPRESSION: Moderate scattered stool suggestive of mild constipation. No traction. Dictated by: Jackie Wing M.D. on 07/23/2016 at 16:42 Approved by: Jackie Wing M.D. on 07/23/2016 at 16:43 Cardiac Echo Impressions Echocardiogram Report Name: YOLIS LOBATO EStudy Date : 07/24/2016 Height: 6 8 in Hospital Exam Location: [facility] Weight: 2 39 lb Gender: Female BSA: 2.2 m2 : 1960 Age: 55 yrs BP: 102/5 6 mmHg Reason For Study: Possible Cardiomyopathy Performed By: Jia Chavez Referring Physician: ROSITA ALMAGUER Interpretation Summary The left ventricle is normal in size. Left ventricular systolic function is normal without focal wall motion abnormalities. The ejection fraction is estimated to be 60-65%. Assessment of diastolic parameters indicates normal left ventricular diastolic function and normal filling pressures. The right ventricle is normal in size and function. The right ventricular systolic pressure is estimated at 38 mmHg assuming a right atrial pressure of 3 mm Hg. The left atrial size is normal. Borderline right atrial enlargement. There is no significant valvular heart disease. No signficant changes in comparison with all 3 prior echo studies since 2014. Assessment & Plan Yolis Lobato is a 55 year old morbidly obese female with a complex medical history including recent CVA x2, chronic respiratory failure secondary to COPD, obstructive asthma, CHF, type II diabetes mellitus, diabetic neuropathy, previous upper extremity DVT s/p PICC line on Warfarin, seizure disorder, GERD and bipolar disorder who presents to [facility] emergency department via EMS complaining of generalized weakness # Restrictive lung disease secondary to Obesity hypoventilation/KENAN on CPAP/ BiPAP therapy, chronic. Inadequate control - Patient has own CPAP for use, but based on elevated CO2, and overall poor respiratory efforts is likely that this is not sufficient for adequate ventilation. - As noted above pulmonology has recommended patient be considered for trilogy machine now approved by insurance for home use - Respiratory therapy is consulted and will install trilogy machine for use tonight as trial. Patient requires nocturnal and PRN daytime volume ventilation. BiPAP has been insufficient for optimal control due to severity of Obesity hyperventilation syndrome, which has been supported by the ABG and venous CO2 readings demonstrating CO2 retention, in addition to the opinion of consulting Research Tech, Dr Myers. # Healthcare associated pneumonia. Present on admission, met criteria for HCAP hospitalization within the last 90 days. Risk factors for MRSA and Pseudomonas. - IV Vancomycin July 23- then DC'd with negative MRSA swab - IV Levaquin followed by oral, total of 8 days, DC'd yesterday by Dr Yen - Chest x-ray on 07/30 worse, now multifocal infiltrates - Currently on oxygen at 2-5-3 L per nasal cannula,her usual at home is 3 L - Swallowing evaluation by speech therapy on July 23 did not show signs of aspiration, there was some concern mention for silent aspiration given radiologic findings of right-sided infiltrates. - Dr. Yen's consult yesterday and follow up today much appreciated -- he's not sure she had bacterial pneumonia but regardless doesn't need further antibiotics for this -- repeat procalcitonin is 0.13, down from 0.5 -- urine Legionella and pneumococcal antigens he ordered yesterday were negative -- ordered Serum cryptococcal antigen which is pending --BNP slightly above normal so less likely that CHF is causing multifocal infiltrates -- ordered CBC, CRP and sed rate for tomorrow morning -- ordered a CT scan noncontrast of the chest (if shows unexplained infiltrates consult Pulmonary) -- ordered some additional basic screening labs for vasculitis and/or autoimmune processes including GREG, rheumatoid factor, an JESSIE level for sarcoid. GREG negatrive, RH positive to date. - Pulmonology, Dr. Myers was consulted in addition further evaluation of lung findings. He concurs etiologies other than infectious may be the cause of patient's current findings. And is also waiting results of serologic studies to evaluate for possible autoimmune process. No further intervention or studies planned at this time. - Modified barium swallow was ordered demonstrating no evidence of silent aspiration/reflux aspiration, which would be consistent with radiologic findings to date. - Patient continues on supplemental oxygen - Ideally she will benefit from Trilogy breathing machine for submental support , this is pending insurance authorization I will make from much safer discharge if able to be achieved as patient appears to be inadequately ventilated with current CPAP machine. - We will continue to monitor appreciate specialist consultation very much. ID oracle ebs consultant signed off given patient demonstrate no evidence of acute infection, will continue to look forward to the assistance of kit assembler Dr. Myers. # Generalized weakness. Present on admission, Multifactorial metabolic derangements and poor baseline function with deconditioning RLS, resting tremors , obesity in addition to C. difficile colitis. probable CVA in the past. -Likely d/c to SNF upon d/c, but difficulty gaining approval from insurance -daily PT to increase mobility, given improvement strength patient now appears stable from discharge in place of SNF. # C.diff colitis, PCR+, -Continue vanc po qid for total 14days (started July 26) - Diarrhea is essentially resolved. Certainly may be contributing to weakness as noted above. #Shoulder pain: - PRN Percocet - Ice PRN. # Hypokalemia. Present on admission, due to GI fluid loss, now resolved after some potassium replacement - Continue to monitor # Insulin-dependent diabetes mellitus with peripheral neuropathy. [id number] -Blood sugars mostly in the 100s - 25unit Lantus each morning started on July 26 and then increased to 40 July 29. Also added 10 units at HS July 29 (she takes Lantus 3 times a day at home for a total of at least 90 units daily) -continue high dose correctional Lispro algorithm, -continuing Lyrica 150 mg bid # COPD. Presumed stable - continuing Neb treatments but does have mild wheezing so we will change to 4 times a day scheduled instead of just as needed - Added prednisone due to heavy wheezing july 27 and responding (although she denies) - continue Budesonide, Fluticasone # History of seizures/Restless Leg syndrome, chronic. Presumed stable - continuing Mirapex, Topamax and Lamotrigine # tremor - Continue Mysoline. Consider Lyrica as the possible cause # ADD - Continue Adderall. Resume home dosing of Vyvanse here. # anemia of chronic disease # right knee and left plantar chronic skin ulcers - Wound care consulted to evaluate and treat foot ulcerations Pain Evaluation: Adequate Pain Control GI Prophylaxis: Proton Pump Inhibitor VTE Prophylaxis: Sub-Q Enoxaparin VTE Mechanical Devices: Intermittant Pneumatic CD Resuscitation Status: CPR: Attempt Resuscitation Time spent 30 minutes Vikram Almanza DO Aug 06, 2016 11:43
--- NOTE | 2016-08-06 17:50 | NUR ---
Uneventful Pt a/o x 4, cooperative with care and staff, walked hallway and tolerated well. Pt has good appetite and PO intake, blood sugars checked and insulin admin. as ordered. Pt denies pain or discomfort, dressings changed today by wound care. Pt resting comfortably in bed with call light within reach, bed low and locked, intentional rounding.
--- NOTE | 2016-08-06 17:58 | NUR ---
Wound Note Patient seen at bedside for wound care and dressing changes. Left plantar foot (1st met) 1 cm in diameter, flush with surrounding skin but undermined 0.3 cm circumferentially, erythema minimal (<0.3 cm halo around wound), wound base 100% fibrinous, drainage serous scant. Cleaned with gauze and saline, minimal bleeding stopped with pressure, redressed with saline moist 2x2 gauze, dry 2x2 gauze and taped in place. Should be changed daily. Right medial heel abrasion,1.8 cm L x 0.8 cm W x 0.1 cm, fibrin 100%, scant serous drainage, no erythema, cleaned with saline and redressed with adhesive foam dressing, can be changed q 48-72 hrs. right lateral tibial ulcer, 1 cm x 1 cm x 0.1 cm, 75% fibrin 25 granulation, cleaned with saline and gauze redressed with adhesive foam dressing can be changed q 48-72 hours. Patient will need home health on discharge for wound care and follow up at wound center with Dr Cervantes.
[2016-08-06] MEDS ORDERED: KCl 40 mEq/D5W 500 mL 40 MEQ in IV Premix 1 EACH IV ONE (20:45)
[2016-08-06] MEDS: DULoxetine 30 mg DR Capsule PO SCH (21:32)
[2016-08-06] MEDS: Tiotropium 18mcg/Cap 5 Capsule Inhaler Kit INHALATION SCH (21:53)
[2016-08-07] MEDS: Vancomycin 125 mg Oral Capsule PO SCH ×4 (03:44→21:28)
[2016-08-07 04:37] VITALS: BP 101/65; PULSE 72; RESP 18; O2SAT 95
--- NOTE | 2016-08-07 05:20 | NUR ---
CPAP RN received pt assignment at 0411, pt found not on CPAP while sleeping, RT called and states: Pt refuses CPAP due to "pressure too high" and RT working on get pt Trilogy. Pt denies SOB. SPO2 around 91-93% on humidified O2 3l per nc. PRECONSTRUCTION MANAGER monitoring.
[2016-08-07 06:26] LABS: BASOPHILS % (AUTO) 0.5 % (0-3); EOSINOPHILS % (AUTO) 2.6 % (0-5); MONOCYTES % (AUTO) 7.8 % (4-12); Mean Corpuscular Hemoglobin 29.5 pg (27.0-35.0); Mean Corpuscular Volume 91.4 fL (81-100); NEUTROPHILS % (AUTO) 59.7 % (40-74); Platelet Count 571 bil/L (150-400)
[2016-08-07] MEDS: Albuterol-Ipratropium 3 mL Inhalation Solution NEB SCH ×4 (07:49→20:30)
[2016-08-07 07:50] VITALS: PULSE 78; RESP 20; O2SAT 97
[2016-08-07] MEDS ORDERED: Insulin GLARgine 100 Unit/mL Syringe SUBQ SCH (08:30)
[2016-08-07] MEDS: Fluticasone 0.05% 15 Spray/2 Gm 16 Gm Nasal Spray NASAL PRN (08:45)
[2016-08-07] MEDS: Fluticasone-Salmeterol 500-50 Inhaler INHALATION SCH ×2 (08:45→20:19)
[2016-08-07] MEDS: Insulin GLARgine 100 Unit/mL Syringe SUBQ SCH ×2 (08:47→20:16)
[2016-08-07] MEDS: Insulin LISPRO High-Dose Scale SUBQ SCH ×4 (08:49→20:16)
[2016-08-07] MEDS: lamoTRIgine 100 mg Tablet PO SCH ×2 (08:50→20:17)
[2016-08-07] MEDS: Potassium Chloride 20 mEq/15 mL 15mL Oral Soln PO SCH ×3 (08:52→17:36)
[2016-08-07] MEDS: Pantoprazole 40 mg ER24 Tablet PO SCH ×2 (08:53→20:18)
[2016-08-07] MEDS: [UNRECOGNIZED DRUG - OTHER] PO SCH ×4 (08:53→16:05)
[2016-08-07] MEDS: predniSONE 20 mg Tablet PO SCH (08:54)
--- NOTE | 2016-08-07 09:06 | PCM.PNMED ---
Subjective Date of Service Aug 07, 2016 Subjective When asked as usual and this morning patient replies, "puny", but with further conversation does admit she has been continuing to experience some improvement in regard to strength and mobility over past couple of days. She continues to ambulate with physical therapy daily and this is while she says is helpful though she is not improving quite at the rate she would like. Breathing remains labor but also has continued to improve. Appetite is good, has no other acute complaints Exam Vital Signs Vital Sign - Last Date Time Temp Pulse Resp B/P Pulse Ox O2 Delivery O2 Flow Rate FiO2 08/07/16 07:50 78 20 97 Nasal Cannula 3.00 08/07/16 04:37 36.7 101/65 Intake and Output 08/06/16 08/06/16 08/07/16 Cumulative From/Thru 15:00 23:00 07:00 07/23/16 15:00 - 08/07/16 06:24 Intake Total 600 ml 1209 ml 90802 ml Output Total 1100 ml 1550 ml 46762 ml Balance -500 ml -341 ml -2336 ml Intake Oral 600 ml 709 ml 22402 ml IV Total 500 ml 9755 ml Output Urine Total 1100 ml 1550 ml 57100 ml Stool Total 450 ml Urine/Stool Mix 2150 ml # Voids 9 # Bowel Movements 1 28 Exam General: Alert, Cooperative, no acute Distress Mouth: Mucous Membranes Moist/Vicco Lungs demonstrate good airflow in all lung giraldo,reduced wheezing in upper lung giraldo. Heart is regular rhythm and rate Abdomen: Non-tender, Non-distended Extremities: No cyanosis/clubbing/edema bilaterally, ulcerations of bilateral lower extremities and feet are dressed in clean dry dressing by wound care. Neurological: Patient demonstrates generalized tremor of upper and lower extremities IVs and Medications Medications Reviewed: Medications were reviewed in detail Lab and Diagnostics Result Diagram: 08/07/16 0550 08/07/16 0550 Microbiology Blood cultures are negative at 24 hours Sputum culture is pending X-Rays, CTs and MRIs X-RAY CHEST ONE VIEW, PORTABLE 07/23 IMPRESSION: Right basilar opacity suggestive of pneumonia. Aspiration pneumonia cannot be excluded. Recommend interval followup to resolution and exclude presence of underlying mass lesion. Dictated by: Jackie Wing M.D. on 07/23/2016 at 16:42 Approved by: Jackie Wing M.D. on 07/23/2016 at 16:42 --- PROCEDURE: X-RAY ABDOMEN, ONE VIEW ([id number]) INDICATIONS: constipation TECHNIQUE: One view of the abdomen acquired. COMPARISON: None. FINDINGS: Surgical changes and devices: None. Bowel: Bowel gas pattern is normal. Moderate scattered stool. Soft tissues: No suspicious abdominal calcifications. Visualized solid organ contours appear normal in size. Bones: No suspicious bony lesions. IMPRESSION: Moderate scattered stool suggestive of mild constipation. No traction. Dictated by: Jackie Wing M.D. on 07/23/2016 at 16:42 Approved by: Jackie Wing M.D. on 07/23/2016 at 16:43 Cardiac Echo Impressions Echocardiogram Report Name: YOLIS LOBATO EStudy Date : 07/24/2016 Height: 6 8 in Hospital Exam Location: [facility] Weight: 2 39 lb Gender: Female BSA: 2.2 m2 : 1960 Age: 55 yrs BP: 102/5 6 mmHg Reason For Study: Possible Cardiomyopathy Performed By: Jia Chavez Referring Physician: ROSITA ALMAGUER Interpretation Summary The left ventricle is normal in size. Left ventricular systolic function is normal without focal wall motion abnormalities. The ejection fraction is estimated to be 60-65%. Assessment of diastolic parameters indicates normal left ventricular diastolic function and normal filling pressures. The right ventricle is normal in size and function. The right ventricular systolic pressure is estimated at 38 mmHg assuming a right atrial pressure of 3 mm Hg. The left atrial size is normal. Borderline right atrial enlargement. There is no significant valvular heart disease. No signficant changes in comparison with all 3 prior echo studies since 2014. Assessment & Plan Yolis Lobato is a 55 year old morbidly obese female with a complex medical history including recent CVA x2, chronic respiratory failure secondary to COPD, obstructive asthma, CHF, type II diabetes mellitus, diabetic neuropathy, previous upper extremity DVT s/p PICC line on Warfarin, seizure disorder, GERD and bipolar disorder who presents to [facility] emergency department via EMS complaining of generalized weakness # Restrictive lung disease secondary to Obesity hypoventilation/KENAN on CPAP/ BiPAP therapy, chronic. Inadequate control - Patient has own CPAP for use, but based on elevated CO2, and overall poor respiratory efforts is likely that this is not sufficient for adequate ventilation. - As noted above pulmonology has recommended patient be considered for trilogy machine now approved by insurance for home use - Respiratory therapy is consulted and will install trilogy machine for use tonight as trial (delayed one day from yesterday). Patient requires nocturnal and PRN daytime volume ventilation. BiPAP has been insufficient for optimal control due to severity of Obesity hyperventilation syndrome, which has been supported by the ABG and venous CO2 readings demonstrating CO2 retention, in addition to the opinion of consulting Inpatient Auditor, Dr Myers. #Hypokalemia - Likely multiple diuretic medications are contributing to this now refractory condition - Pt received 2 days of IV repletion in addition to oral repletion without significant increase in K+ level - MG is wnl, diarrhea, previously suspected as source is improving, nearly resolved. - Trial Spironolactone over night to aid in potassium retention - FU AM level on BMP # Healthcare associated pneumonia. Present on admission, met criteria for HCAP hospitalization within the last 90 days. Risk factors for MRSA and Pseudomonas. - IV Vancomycin July 23- then DC'd with negative MRSA swab - IV Levaquin followed by oral, total of 8 days, DC'd yesterday by Dr Yen - Chest x-ray on 07/30 worse, now multifocal infiltrates - Currently on oxygen at 2-5-3 L per nasal cannula,her usual at home is 3 L - Swallowing evaluation by speech therapy on July 23 did not show signs of aspiration, there was some concern mention for silent aspiration given radiologic findings of right-sided infiltrates. - Dr. Yen's consult yesterday and follow up today much appreciated -- he's not sure she had bacterial pneumonia but regardless doesn't need further antibiotics for this -- repeat procalcitonin is 0.13, down from 0.5 -- urine Legionella and pneumococcal antigens he ordered yesterday were negative -- ordered Serum cryptococcal antigen which is pending --BNP slightly above normal so less likely that CHF is causing multifocal infiltrates -- ordered CBC, CRP and sed rate for tomorrow morning -- ordered a CT scan noncontrast of the chest (if shows unexplained infiltrates consult Pulmonary) -- ordered some additional basic screening labs for vasculitis and/or autoimmune processes including GREG, rheumatoid factor, an JESSIE level for sarcoid. GREG negatrive, RH positive to date. - Pulmonology, Dr. Myers was consulted in addition further evaluation of lung findings. He concurs etiologies other than infectious may be the cause of patient's current findings. And is also waiting results of serologic studies to evaluate for possible autoimmune process. No further intervention or studies planned at this time. - Modified barium swallow was ordered demonstrating no evidence of silent aspiration/reflux aspiration, which would be consistent with radiologic findings to date. - Patient continues on supplemental oxygen - Ideally she will benefit from Trilogy breathing machine for submental support , this is pending insurance authorization I will make from much safer discharge if able to be achieved as patient appears to be inadequately ventilated with current CPAP machine. - We will continue to monitor appreciate specialist consultation very much. ID sustainable design consultant signed off given patient demonstrate no evidence of acute infection, will continue to look forward to the assistance of aeronautics teacher Dr. Myers. # Generalized weakness. Present on admission, Multifactorial metabolic derangements and poor baseline function with deconditioning RLS, resting tremors , obesity in addition to C. difficile colitis. probable CVA in the past. -Likely d/c to SNF upon d/c, but difficulty gaining approval from insurance -daily PT to increase mobility, given improvement strength patient now appears stable from discharge in place of SNF. # C.diff colitis, PCR+, -Continue vanc po qid for total 14days (started July 26) - Diarrhea is essentially resolved. Certainly may be contributing to weakness as noted above. #Shoulder pain: - PRN Percocet - Ice PRN. # Insulin-dependent diabetes mellitus with peripheral neuropathy. [id number] -Blood sugars mostly in the 100s - 25unit Lantus each morning started on July 26 and then increased to 40 July 29, to 45U on August 05, and subsequently 50U August 06 given persistent hyperglycemia. - Pt additionally RX'd 10U HS, now increased to 15U to address AM hyperglycemia more aggressively, though elevation in BS tending to increase through the day, highest in afternoon/evenings. - Steroid use is likely contributing. -continue high dose correctional Lispro algorithm, -continuing Lyrica 150 mg bid # COPD. Presumed stable - continuing Neb treatments but does have mild wheezing so we will change to 4 times a day scheduled instead of just as needed - Added prednisone due to heavy wheezing july 27 and responding (although she denies) - continue Budesonide, Fluticasone # History of seizures/Restless Leg syndrome, chronic. Presumed stable - continuing Mirapex, Topamax and Lamotrigine # tremor - Continue Mysoline. Consider Lyrica as the possible cause # ADD - Continue Adderall. Resume home dosing of Vyvanse here. # anemia of chronic disease # right knee and left plantar chronic skin ulcers - Wound care consulted to evaluate and treat foot ulcerations Pain Evaluation: Adequate Pain Control GI Prophylaxis: Proton Pump Inhibitor VTE Prophylaxis: Sub-Q Enoxaparin VTE Mechanical Devices: Intermittant Pneumatic CD Resuscitation Status: CPR: Attempt Resuscitation Time spent 30 minutes Vikram Almanza DO Aug 07, 2016 09:06
[2016-08-07] MEDS: VYVANSE 70 MG PO SCH (09:11)
--- NOTE | 2016-08-07 10:06 | PCM.PNMED ---
Subjective Date of Service Aug 07, 2016 Subjective Yolis reports she is feeling back to baseline except for being still a bit weak from laying in the hospital. She is eager to get home to her family. Her cough has mostly disappeared. Exam Vital Signs Vital Sign - Last Date Time Temp Pulse Resp B/P Pulse Ox O2 Delivery O2 Flow Rate FiO2 08/07/16 09:06 Supplement Oxygen 08/07/16 07:50 78 20 97 3.00 08/07/16 04:37 36.7 101/65 Intake and Output 08/06/16 08/06/16 08/07/16 Cumulative From/Thru 15:00 23:00 07:00 07/23/16 15:00 - 08/07/16 06:24 Intake Total 600 ml 1209 ml 07017 ml Output Total 1100 ml 1550 ml 13291 ml Balance -500 ml -341 ml -2336 ml Intake Oral 600 ml 709 ml 57819 ml IV Total 500 ml 9755 ml Output Urine Total 1100 ml 1550 ml 47627 ml Stool Total 450 ml Urine/Stool Mix 2150 ml # Voids 9 # Bowel Movements 1 28 Exam General appearance: No acute distress. Sitting upright in bed. Chest: Fair breath sounds bilaterally. Somewhat diminished at the bases. Maybe a bit more diminished at the right base posteriorly. No wheeze. No use of accessory muscles. No tracheal tug. Heart: Regular rhythm. Heart tones normal. Abdomen is soft. Bowel tones present. IVs and Medications Medications Reviewed: Medications were reviewed in detail Lab and Diagnostics Result Diagram: 08/07/16 0550 08/07/16 0550 Microbiology Blood cultures are negative at 24 hours Sputum culture is pending X-Rays, CTs and MRIs X-RAY CHEST ONE VIEW, PORTABLE 07/23 IMPRESSION: Right basilar opacity suggestive of pneumonia. Aspiration pneumonia cannot be excluded. Recommend interval followup to resolution and exclude presence of underlying mass lesion. Dictated by: Jackie Wing M.D. on 07/23/2016 at 16:42 Approved by: Jackie Wing M.D. on 07/23/2016 at 16:42 --- PROCEDURE: X-RAY ABDOMEN, ONE VIEW ([id number]) INDICATIONS: constipation TECHNIQUE: One view of the abdomen acquired. COMPARISON: None. FINDINGS: Surgical changes and devices: None. Bowel: Bowel gas pattern is normal. Moderate scattered stool. Soft tissues: No suspicious abdominal calcifications. Visualized solid organ contours appear normal in size. Bones: No suspicious bony lesions. IMPRESSION: Moderate scattered stool suggestive of mild constipation. No traction. Dictated by: Jackie Wing M.D. on 07/23/2016 at 16:42 Approved by: Jackie Wing M.D. on 07/23/2016 at 16:43 Cardiac Echo Impressions Echocardiogram Report Name: YOLIS LOBATO EStudy Date : 07/24/2016 Height: 6 8 in Hospital Exam Location: [facility] Weight: 2 39 lb Gender: Female BSA: 2.2 m2 : 1960 Age: 55 yrs BP: 102/5 6 mmHg Reason For Study: Possible Cardiomyopathy Performed By: Jia Chavez Referring Physician: ROSITA ALMAGUER Interpretation Summary The left ventricle is normal in size. Left ventricular systolic function is normal without focal wall motion abnormalities. The ejection fraction is estimated to be 60-65%. Assessment of diastolic parameters indicates normal left ventricular diastolic function and normal filling pressures. The right ventricle is normal in size and function. The right ventricular systolic pressure is estimated at 38 mmHg assuming a right atrial pressure of 3 mm Hg. The left atrial size is normal. Borderline right atrial enlargement. There is no significant valvular heart disease. No signficant changes in comparison with all 3 prior echo studies since 2014. Assessment & Plan Yolis Lobato is a 55 year old morbidly obese female with a complex medical history including recent CVA x2, chronic respiratory failure secondary to COPD, obstructive asthma, CHF, type II diabetes mellitus, diabetic neuropathy, previous upper extremity DVT s/p PICC line on Warfarin, seizure disorder, GERD and bipolar disorder who presents to [facility] emergency department via EMS complaining of generalized weakness ASSESSMENT: 1. Pneumonitis with chronic hypercapnia. Cough is minimal. Oxygenation quite good at this point, back to baseline oxygen need of 3 liters by nasal cannula, but patient remains chronically hypercapnic. She has recorded diagnoses as an outpatient of mild persistent asthma with status asthmaticus and COPD. There are no referrals or visits to Pulmonology, no formal PFTs in her records. 2. Sleep apnea. Lisa Terry reports she is using her CPAP 9+ hours daily. ABG with pCO2 of 50.1 despite adequate oxygenation and use of CPAP. 3. Hypokalemia. K+ remains somewhat low in spite of supplementation. Not secondary to low Mg: Magnesium 2.2 on 08/04/16 and 2.0 at admission on 07/29/16. 4. Deconditioning, long hospitalization of patient who is already minimally mobile at home. PLAN: 1. RT has approval for Trilogy with insurance approval from [employer]. 2. Outpatient reevaluation of sleep apnea is recommended. 3. Continue supplementation with Potassium 40meq PO daily 4. Continue to have Physical Therapy see the patient for ambulation and strengthening. The Pulmonology Service is signing off from this patient. We appreciate being part of her care. Disposition: PT has recommended discharge with home health and home physical therapy. She is clear for discharge from a pulmonary perspective. Pain Evaluation: Adequate Pain Control GI Prophylaxis: Proton Pump Inhibitor VTE Prophylaxis: Sub-Q Enoxaparin VTE Mechanical Devices: Intermittant Pneumatic CD Resuscitation Status: CPR: Attempt Resuscitation Lucho Thapa DO Aug 07, 2016 10:06
[2016-08-07 11:45] VITALS: PULSE 93; RESP 18; O2SAT 95
--- NOTE | 2016-08-07 14:09 | NUR ---
Social Work: readiness for discharge Data:EMR reviewed. Pt is on day 15 of hospitalization for pneumonia per H&P. MD anticipates 1-2 more days for pt. Pulmonary continues to be involved and is working with RT on getting pt a trilogy through [facility]. PT has seen pt and cleared pt for home with services. Pt has been set up with services through [facility] for RN,PT,OT, and MILITARY PAY CLERK. Pt and agreeable to plan. MD to fill out F2F. SW will continue to follow. Assessment: Pt who is independent at baseline. Plan: Pt to discharge home when medically stable via POV. . Pt has been set up with [facility] RN, PT, OT, MILITARY PAY CLERK. Pt has home O2 through [facility] [place]. Pulmonary and RT working on trilogy through [facility]. SW will continue to follow. SVETLANA Roldan
[2016-08-07 14:17] VITALS: BP 113/65; PULSE 95; RESP 20; O2SAT 96
[2016-08-07 16:21] VITALS: PULSE 88; RESP 18; O2SAT 96
[2016-08-07] MEDS ORDERED: Potassium Chloride Inj 20 MEQ in Dextrose 5% 250 ML IV ONE (16:45)
--- NOTE | 2016-08-07 18:23 | NUR ---
Activity/dressing change/Trilogy: Patient was evaluated and set up for her trillogy machine today. Patient is SBA to the . She is able to ambulate with her walker and is steady on her feed. She just needs help to get out of bed. Patients dressings were changed per wound care specifications to her ankles, knee and heel. The wounds continue to heal and padded dressings were placed on the area to protect them.
[2016-08-07] MEDS: DULoxetine 30 mg DR Capsule PO SCH (20:17)
[2016-08-07] MEDS: Tiotropium 18mcg/Cap 5 Capsule Inhaler Kit INHALATION SCH (20:19)
[2016-08-07 20:42] VITALS: BP 109/64; PULSE 82; RESP 18; O2SAT 97
--- NOTE | 2016-08-07 22:01 | NUR ---
Patient refused to wear triolgy tonight. I explained the benefits and need to wear it and she refused. She stated that when [facility] was here they were unable to get the patient to feel comfortable. I offered to help adjust to help patient be more comfortable and patient flat out refused to wear at this time.
[2016-08-08] VITALS (7 sets, daily range): BP systolic 101–132; BP diastolic 61–80; PULSE 72–97; RESP 14–20; O2SAT 95–98
--- NOTE | 2016-08-08 01:11 | NUR ---
Patient agreed to try and wear her trilogy, Settings are AVAPS with 2L BI, patient appears to resting comfortably STATS are maintained.
[2016-08-08] MEDS: Vancomycin 125 mg Oral Capsule PO SCH ×4 (03:17→20:09)
[2016-08-08 06:08] LABS: BASOPHILS % (AUTO) 0.5 % (0-3); EOSINOPHILS % (AUTO) 2.1 % (0-5); MONOCYTES % (AUTO) 7.3 % (4-12); Mean Corpuscular Hemoglobin 29.6 pg (27.0-35.0); Mean Corpuscular Volume 91.1 fL (81-100); Platelet Count 558 bil/L (150-400)
--- NOTE | 2016-08-08 06:09 | NUR ---
Uneventful Overnight Pt denies SOB/Cough/N/V/fever/chills, mild shoulder pain, no need pain med when offered. Pt agreed RT to place Trilogy for her overnight, SPO2 93-96% on O2 3l. VSS. Moderately decreased lung sounds bilaterally which may be contributed by obesity,a few fine crackles at posterior LLs. HR 70S-80S, regular. Pt appears drowsy at the late evening, improved overnight, alert and orientedx3. Continue monitoring.
[2016-08-08] MEDS: Albuterol-Ipratropium 3 mL Inhalation Solution NEB SCH ×4 (07:42→19:34)
--- NOTE | 2016-08-08 07:43 | NUR ---
Trilogy at bedside, worn throughout the night. Patient tolerated usage from about [id number]. She states it did dry her throat out. Explained to patient once she gets home she will have humidity which will help significantly. Once home [facility] will assist patient in further usage and understanding of equipment.
[2016-08-08] MEDS: Potassium Chloride 20 mEq/15 mL 15mL Oral Soln PO SCH ×3 (08:19→17:17)
[2016-08-08] MEDS: predniSONE 20 mg Tablet PO SCH (08:20)
[2016-08-08] MEDS: Pantoprazole 40 mg ER24 Tablet PO SCH ×2 (08:20→20:08)
[2016-08-08] MEDS: Insulin LISPRO High-Dose Scale SUBQ SCH ×4 (08:22→21:42)
[2016-08-08] MEDS: lamoTRIgine 100 mg Tablet PO SCH ×2 (08:23→20:09)
[2016-08-08] MEDS: Insulin GLARgine 100 Unit/mL Syringe SUBQ SCH ×2 (08:24→21:41)
[2016-08-08] MEDS: Fluticasone-Salmeterol 500-50 Inhaler INHALATION SCH ×2 (08:26→20:08)
[2016-08-08] MEDS: Fluticasone 0.05% 15 Spray/2 Gm 16 Gm Nasal Spray NASAL PRN (08:27)
[2016-08-08] MEDS: VYVANSE 70 MG PO SCH (08:41)
[2016-08-08] MEDS: Amphetamines (Mixed) 10 mg Tablet PO SCH ×2 (08:57→15:23)
[2016-08-08] MEDS ORDERED: KCl 40 mEq/D5W 500 mL 40 MEQ in IV Premix 1 EACH IV ONE (15:45)
[2016-08-08] MEDS ORDERED: Potassium Chloride Inj 40 MEQ in 0.9% Sodium Chloride 500 ML IV ONE (15:50)
--- NOTE | 2016-08-08 17:35 | NUR ---
Activity: Patient ambulated in the [facility] with nursing staff member. She mad two full rounds of [facility] hallway on room air and when she arrived back to her room her 02 sat was 94% on room air. Patient tolerated the activity without issues.
[2016-08-08] MEDS: DULoxetine 30 mg DR Capsule PO SCH (20:08)
[2016-08-08] MEDS: Tiotropium 18mcg/Cap 5 Capsule Inhaler Kit INHALATION SCH (20:08)
--- NOTE | 2016-08-08 23:37 | PCM.PNMED ---
Subjective Date of Service Aug 08, 2016 Subjective The patient is feeling a little bit stronger and is able to ambulate with assistance and a walker in the hallway. She has no new complaints. Exam Vital Signs Vital Sign - Last Date Time Temp Pulse Resp B/P Pulse Ox O2 Delivery O2 Flow Rate FiO2 08/08/16 20:34 36.8 84 16 132/80 97 Nasal Cannula 3.00 Intake and Output 08/07/16 08/07/16 08/08/16 Cumulative From/Thru 15:00 23:00 07:00 07/23/16 15:00 - 08/08/16 06:30 Intake Total 1701 ml 400 ml 99593 ml Output Total 1000 ml 2200 ml 47492 ml Balance 701 ml -1800 ml -3435 ml Intake Oral 1336 ml 400 ml 47662 ml IV Total 365 ml 49531 ml Output Urine Total 1000 ml 2200 ml 55092 ml Stool Total 450 ml Urine/Stool Mix 2150 ml # Voids 9 # Bowel Movements 28 Exam General: Patient is lying comfortably supine in bed in no apparent distress. HEENT: Head is atraumatic and normocephalic. Eyes: Pupils are equally round and reactive to light and accommodation. Extraocular muscles are intact. Sclera are white, anicteric. Subconjunctival mucosa is pink. Ears and nose are unremarkable. Oropharynx: There is no mucosal lesions, there is no thrush, there is no pharyngitis. Neck: Is supple, there are no nodes, or masses or tenderness. Chest: Breath sounds are much clearer. Heart: Rate, rhythm is regular. There is no new murmur, rub or gallop. Abdomen: Good bowel sounds are present. Abdomen is obese, soft, nontender, no organomegaly or masses were appreciated. Extremities: Are symmetrical and well perfused. There is no edema, there is no cellulitis, no rash. Neurologic: Patient has an essential tremor of the right upper extremity at rest which has improved significantly since admission. Otherwise, there are no focal neurological deficits. Cranial nerves II through XII are intact. There are no sensory or motor deficits. The patient has generalized weakness. The patient strength has improved significantly since admission and she is able to ambulate with a walker with assistance now. Psychiatric: Patients mood is calm and she shows no sign of agitation. Genital: Deferred Rectal: Deferred Lab and Diagnostics Result Diagram: 08/08/1652608/08/16526 Microbiology Blood cultures are negative at 24 hours Sputum culture is pending X-Rays, CTs and MRIs X-RAY CHEST ONE VIEW, PORTABLE 07/23 IMPRESSION: Right basilar opacity suggestive of pneumonia. Aspiration pneumonia cannot be excluded. Recommend interval followup to resolution and exclude presence of underlying mass lesion. Dictated by: Jackie Wing M.D. on 07/23/2016 at 16:42 Approved by: Jackie Wing M.D. on 07/23/2016 at 16:42 --- PROCEDURE: X-RAY ABDOMEN, ONE VIEW ([id number]) INDICATIONS: constipation TECHNIQUE: One view of the abdomen acquired. COMPARISON: None. FINDINGS: Surgical changes and devices: None. Bowel: Bowel gas pattern is normal. Moderate scattered stool. Soft tissues: No suspicious abdominal calcifications. Visualized solid organ contours appear normal in size. Bones: No suspicious bony lesions. IMPRESSION: Moderate scattered stool suggestive of mild constipation. No traction. Dictated by: Jackie Wing M.D. on 07/23/2016 at 16:42 Approved by: Jackie Wing M.D. on 07/23/2016 at 16:43 Cardiac Echo Impressions Echocardiogram Report Name: YOLIS LOBATO EStudy Date : 07/24/2016 Height: 6 8 in Hospital Exam Location: [facility] Weight: 2 39 lb Gender: Female BSA: 2.2 m2 : 1960 Age: 55 yrs BP: 102/5 6 mmHg Reason For Study: Possible Cardiomyopathy Performed By: Jia Chavez Referring Physician: ROSITA MENDOZA Interpretation Summary The left ventricle is normal in size. Left ventricular systolic function is normal without focal wall motion abnormalities. The ejection fraction is estimated to be 60-65%. Assessment of diastolic parameters indicates normal left ventricular diastolic function and normal filling pressures. The right ventricle is normal in size and function. The right ventricular systolic pressure is estimated at 38 mmHg assuming a right atrial pressure of 3 mm Hg. The left atrial size is normal. Borderline right atrial enlargement. There is no significant valvular heart disease. No signficant changes in comparison with all 3 prior echo studies since 2014. Assessment & Plan Yolis Lobato is a 55 year old morbidly obese female with a complex medical history including recent CVA x2, chronic respiratory failure secondary to COPD, obstructive asthma, CHF, type II diabetes mellitus, diabetic neuropathy, previous upper extremity DVT s/p PICC line on Warfarin, seizure disorder, GERD and bipolar disorder who presents to [facility] emergency department via EMS complaining of generalized weakness # Restrictive lung disease secondary to Obesity hypoventilation/KENAN on CPAP/ BiPAP therapy, chronic. Inadequate control - Patient has own CPAP for use, but based on elevated CO2, and overall poor respiratory efforts is likely that this is not sufficient for adequate ventilation. - As noted above pulmonology has recommended patient be considered for trilogy machine now approved by insurance for home use - Respiratory therapy is consulted and will install trilogy machine for use tonight as trial (delayed one day from yesterday). Patient requires nocturnal and PRN daytime volume ventilation. BiPAP has been insufficient for optimal control due to severity of Obesity hyperventilation syndrome, which has been supported by the ABG and venous CO2 readings demonstrating CO2 retention, in addition to the opinion of consulting Snuff Drier, Dr Myers. #Hypokalemia - Likely multiple diuretic medications are contributing to this now refractory condition. Therefore, we will discontinue hydrochlorothiazide. - Continue spironolactone. - We will give increased oral and IV potassium - Magnesium is wnl, diarrhea, previously suspected as source is improving, nearly resolved. - Check labs in a.m. # Healthcare associated pneumonia. Present on admission, met criteria for HCAP hospitalization within the last 90 days. Risk factors for MRSA and Pseudomonas. - IV Vancomycin July 23- then DC'd with negative MRSA swab - IV Levaquin followed by oral, total of 8 days, DC'd by Dr Yen - Chest x-ray on 07/30 worse, now multifocal infiltrates - Currently on oxygen at 2-5-3 L per nasal cannula,her usual at home is 3 L - Swallowing evaluation by speech therapy on July 23 did not show signs of aspiration, there was some concern mention for silent aspiration given radiologic findings of right-sided infiltrates. - Dr. Yen's consult and follow up today much appreciated -- he's not sure she had bacterial pneumonia but regardless doesn't need further antibiotics for this -- repeat procalcitonin is 0.13, down from 0.5 -- urine Legionella and pneumococcal antigens he ordered yesterday were negative -- ordered Serum cryptococcal antigen which is pending --BNP slightly above normal so less likely that CHF is causing multifocal infiltrates -- ordered CBC, CRP and sed rate for tomorrow morning -- ordered a CT scan noncontrast of the chest (if shows unexplained infiltrates consult Pulmonary) -- ordered some additional basic screening labs for vasculitis and/or autoimmune processes including GREG, rheumatoid factor, an JESSIE level for sarcoid. GREG negatrive, RH positive to date. - Pulmonology, Dr. Myers was consulted in addition further evaluation of lung findings. He concurs etiologies other than infectious may be the cause of patient's current findings. And is also waiting results of serologic studies to evaluate for possible autoimmune process. No further intervention or studies planned at this time. - Modified barium swallow was ordered demonstrating no evidence of silent aspiration/reflux aspiration, which would be consistent with radiologic findings to date. - Patient continues on supplemental oxygen - Ideally she will benefit from Trilogy breathing machine for submental support , this is pending insurance authorization I will make from much safer discharge if able to be achieved as patient appears to be inadequately ventilated with current CPAP machine. - We will continue to monitor appreciate specialist consultation very much. ID analytical consultant signed off given patient demonstrate no evidence of acute infection, will continue to look forward to the assistance of slide developer Dr. Myers. # Generalized weakness. Present on admission, however improved. Multifactorial metabolic derangements and poor baseline function with deconditioning RLS, resting tremors, obesity in addition to C. difficile colitis. probable CVA in the past. -Patient would like to go home with home health -Continue daily PT to increase mobility, given improvement strength patient now appears stable from discharge in place of SNF. # C.diff colitis, PCR+, -Continue vanc po qid for total 14days (started July 26) - Diarrhea is essentially resolved. Certainly may be contributing to weakness as noted above. #Shoulder pain: - PRN Percocet - Ice PRN. # Insulin-dependent diabetes mellitus with peripheral neuropathy. a1c10.6 -Blood sugars mostly in the 100s - 25unit Lantus each morning started on July 26 and then increased to 40 July 29, to 45U on August 05, and subsequently 50U August 06 given persistent hyperglycemia. - Pt additionally RX'd 10U HS, now increased to 15U to address AM hyperglycemia more aggressively, though elevation in BS tending to increase through the day, highest in afternoon/evenings. - Steroid use is likely contributing. -continue high dose correctional Lispro algorithm, -continuing Lyrica 150 mg bid # COPD. Presumed stable - continuing Neb treatments but does have mild wheezing so we will change to 4 times a day scheduled instead of just as needed - Added prednisone due to heavy wheezing july 27 and responding (although she denies) - continue Budesonide, Fluticasone # History of seizures/Restless Leg syndrome, chronic. Presumed stable - continuing Mirapex, Topamax and Lamotrigine # Tremor - Continue Mysoline. Consider Lyrica as the possible cause # ADD - Continue Adderall. Resume home dosing of Vyvanse here. # Anemia of chronic disease # Right knee and left plantar chronic skin ulcers - Wound care consulted to evaluate and treat foot ulcerations Disposition: Patient's potassium level will need to be corrected and maintained at near normal levels prior to discharge. Pain Evaluation: Adequate Pain Control GI Prophylaxis: Proton Pump Inhibitor VTE Prophylaxis: Sub-Q Enoxaparin VTE Mechanical Devices: Intermittant Pneumatic CD Resuscitation Status: CPR: Attempt Resuscitation Rosita Mendoza MD Aug 08, 2016 23:36
[2016-08-09] MEDS: Vancomycin 125 mg Oral Capsule PO SCH ×4 (03:00→21:40)
[2016-08-09 05:23] VITALS: BP 114/82; PULSE 71; RESP 16; O2SAT 97
--- NOTE | 2016-08-09 06:07 | NUR ---
Upset/activity Pt upset because she wanted to be discharged yesterday and stated, "My potassium is always low and I wanted to go home." Educated on risks and benefits also the plan of care. Pt seemed to understand information and later her mood changed to be more positive. Denies general discomfort, chest pain/pressure, and shortness of breath. Pt wore Trilogy during HS without issues noted or reported. Call light within reach. Care ongoing.
[2016-08-09 06:09] LABS: BASOPHILS % (AUTO) 0.3 % (0-3); EOSINOPHILS % (AUTO) 3.5 % (0-5); MONOCYTES % (AUTO) 7.1 % (4-12); Mean Corpuscular Hemoglobin 29.1 pg (27.0-35.0); Mean Corpuscular Volume 92.2 fL (81-100); NEUTROPHILS % (AUTO) 56.3 % (40-74); Platelet Count 451 bil/L (150-400)
[2016-08-09 06:41] LABS: Magnesium 2.7 mg/dL (1.6-2.6)
[2016-08-09] MEDS: Fluticasone-Salmeterol 500-50 Inhaler INHALATION SCH ×2 (07:44→21:39)
[2016-08-09] MEDS: Insulin LISPRO High-Dose Scale SUBQ SCH ×4 (07:46→21:47)
[2016-08-09] MEDS: Potassium Chloride 20 mEq/15 mL 15mL Oral Soln PO SCH ×3 (07:47→17:04)
[2016-08-09] MEDS: predniSONE 20 mg Tablet PO SCH (07:47)
[2016-08-09] MEDS: lamoTRIgine 100 mg Tablet PO SCH ×2 (07:48→21:40)
[2016-08-09] MEDS: Amphetamines (Mixed) 10 mg Tablet PO SCH ×2 (07:48→16:25)
[2016-08-09] MEDS: Pantoprazole 40 mg ER24 Tablet PO SCH ×2 (07:49→21:39)
[2016-08-09] MEDS: Insulin GLARgine 100 Unit/mL Syringe SUBQ SCH ×2 (07:50→21:47)
[2016-08-09] MEDS: VYVANSE 70 MG PO SCH (07:54)
[2016-08-09 08:40] VITALS: PULSE 79; RESP 20; O2SAT 97
[2016-08-09] MEDS: Albuterol-Ipratropium 3 mL Inhalation Solution NEB SCH ×4 (08:40→19:27)
--- NOTE | 2016-08-09 10:40 | NUR ---
Wound note Patient seen for wound care and dressing change today at bedside, patient will need for wound care on discharge and f/u at wound center with Dr Cervantes. Left plantar 1st met head ulcer- 1 cm x 0.8 cm x flush granulation tissue exuberant in wound bed with layer of fibrin overtop, this is removed today mechanically with gauze and saline, redressed with foam off load, saline moist 2x2 gauze, dry 2x2 and [address], can be changed q 48-72 hrs. Right medial heel wound- 1.2 cm L x 0.8 cm w x 0.1 cm, granulation tissue with fibrin slough covering,this is removed today mechanically with gauze and saline, redressed with foam and tape, can be changed q 48-72 hrs. right prepatellar wound- 0.8 cm x 0.8 cm x0.1 cm, granulation tissue with fibrin slough covering,this is removed today mechanically with gauze and saline, redressed with foam and tape, can be changed q 48-72 hrs.
[2016-08-09 12:33] VITALS: PULSE 79; RESP 20; O2SAT 97
[2016-08-09 13:21] VITALS: BP 110/65; PULSE 90; RESP 18; O2SAT 98
--- NOTE | 2016-08-09 14:18 | NUR ---
Social Work: Readiness for d/c Data: Pt is on day 17 of hospitalization. EMR reviewed. Pt discussed in rounds. MD states pt likely to d/c home in 1-2 days. MD previously ordered ACCOUNTANCY PROFESSOR set up walker for pt, ACCOUNTANCY PROFESSOR requested bariatric walker prescription from . ACCOUNTANCY PROFESSOR spoke with RT who states that [employer] has started the authorization process for trilogy with pt's insurance but has not received the authorization yet. Assessment: Pt with caregiving at baseline. Plan: Pt will d/c home with Lonnie DOS SANTOS, RN, PT, OT, EXTRUSION LINE OPERATOR when medically stable, likely in 1-2 days per MD. RT setting up trilogy with [employer] who has not yet received the insurance auth for it. ACCOUNTANCY PROFESSOR awaiting prescription for bariatric walker from . ACCOUNTANCY PROFESSOR will continue to follow. SVETLANA Oliver
[2016-08-09 15:46] VITALS: PULSE 87; RESP 20; O2SAT 95
--- NOTE | 2016-08-09 18:38 | NUR ---
Stool/Activity: Patient had no diarrhea today. She continues to be on PO Vancomycin for C Diff. Patient ambulated in the patterson with her today (with double gown and protective covering due to her C Diff status. Patient continues to be on contact /enteric precautions.
[2016-08-09] MEDS: DULoxetine 30 mg DR Capsule PO SCH (21:40)
[2016-08-09] MEDS: Tiotropium 18mcg/Cap 5 Capsule Inhaler Kit INHALATION SCH (21:41)
[2016-08-09 22:01] VITALS: BP 116/60; PULSE 91; RESP 18; O2SAT 96
--- NOTE | 2016-08-09 23:56 | PCM.PNMED ---
Subjective Date of Service Aug 09, 2016 Subjective Patient has no new complaints. She is resting comfortably in bed. He has been able to ambulate with a bariatric walker in the hallway with assistance. Exam Vital Signs Vital Sign - Last Date Time Temp Pulse Resp B/P Pulse Ox O2 Delivery O2 Flow Rate FiO2 08/09/16 22:01 37.0 91 18 116/60 96 Nasal Cannula 3.00 Intake and Output 08/08/16 08/08/16 08/09/16 Cumulative From/Thru 15:00 23:00 07:00 07/23/16 15:00 - 08/09/16 06:39 Intake Total 1628 ml 600 ml 73484 ml Output Total 1150 ml 1200 ml 49708 ml Balance 478 ml -600 ml -3557 ml Intake Oral 1628 ml 600 ml 72135 ml IV Total 25051 ml Output Urine Total 1150 ml 1200 ml 00780 ml Stool Total 450 ml Urine/Stool Mix 2150 ml # Voids 9 # Bowel Movements 28 Exam General: Patient is lying comfortably supine in bed in no apparent distress. HEENT: Head is atraumatic and normocephalic. Eyes: Pupils are equally round and reactive to light and accommodation. Extraocular muscles are intact. Sclera are white, anicteric. Subconjunctival mucosa is pink. Ears and nose are unremarkable. Oropharynx: There is no mucosal lesions, there is no thrush, there is no pharyngitis. Neck: Is supple, there are no nodes, or masses or tenderness. Chest: Breath sounds are much clearer. Heart: Rate, rhythm is regular. There is no new murmur, rub or gallop. Abdomen: Good bowel sounds are present. Abdomen is obese, soft, nontender, no organomegaly or masses were appreciated. Extremities: Are symmetrical and well perfused. There is no edema, there is no cellulitis, no rash. Neurologic: Patient has an essential tremor of the right upper extremity at rest which has improved significantly since admission. Otherwise, there are no focal neurological deficits. Cranial nerves II through XII are intact. There are no sensory or motor deficits. The patient has generalized weakness. The patient strength has improved significantly since admission and she is able to ambulate with a walker with assistance now. Psychiatric: Patients mood is calm and she shows no sign of agitation. Genital: Deferred Rectal: Deferred Lab and Diagnostics Result Diagram: 08/09/16 0540 08/09/1640 Microbiology Blood cultures are negative at 24 hours Sputum culture is pending X-Rays, CTs and MRIs X-RAY CHEST ONE VIEW, PORTABLE 07/23 IMPRESSION: Right basilar opacity suggestive of pneumonia. Aspiration pneumonia cannot be excluded. Recommend interval followup to resolution and exclude presence of underlying mass lesion. Dictated by: Jackie Wing M.D. on 07/23/2016 at 16:42 Approved by: Jackie Wing M.D. on 07/23/2016 at 16:42 --- PROCEDURE: X-RAY ABDOMEN, ONE VIEW ([id number]) INDICATIONS: constipation TECHNIQUE: One view of the abdomen acquired. COMPARISON: None. FINDINGS: Surgical changes and devices: None. Bowel: Bowel gas pattern is normal. Moderate scattered stool. Soft tissues: No suspicious abdominal calcifications. Visualized solid organ contours appear normal in size. Bones: No suspicious bony lesions. IMPRESSION: Moderate scattered stool suggestive of mild constipation. No traction. Dictated by: Jackie Wing M.D. on 07/23/2016 at 16:42 Approved by: Jackie Wing M.D. on 07/23/2016 at 16:43 Cardiac Echo Impressions Echocardiogram Report Name: YOLIS LOBATO EStudy Date : 07/24/2016 Height: 6 8 in Hospital Exam Location: [facility] Weight: 2 39 lb Gender: Female BSA: 2.2 m2 : 1960 Age: 55 yrs BP: 102/5 6 mmHg Reason For Study: Possible Cardiomyopathy Performed By: Jia Chavez Referring Physician: ROSITA MENDOZA Interpretation Summary The left ventricle is normal in size. Left ventricular systolic function is normal without focal wall motion abnormalities. The ejection fraction is estimated to be 60-65%. Assessment of diastolic parameters indicates normal left ventricular diastolic function and normal filling pressures. The right ventricle is normal in size and function. The right ventricular systolic pressure is estimated at 38 mmHg assuming a right atrial pressure of 3 mm Hg. The left atrial size is normal. Borderline right atrial enlargement. There is no significant valvular heart disease. No signficant changes in comparison with all 3 prior echo studies since 2014. Assessment & Plan Yolis Lobato is a 55 year old morbidly obese female with a complex medical history including recent CVA x2, chronic respiratory failure secondary to COPD, obstructive asthma, CHF, type II diabetes mellitus, diabetic neuropathy, previous upper extremity DVT s/p PICC line on Warfarin, seizure disorder, GERD and bipolar disorder who presents to [facility] emergency department via EMS complaining of generalized weakness # Restrictive lung disease secondary to Obesity hypoventilation/KENAN on CPAP/ BiPAP therapy, chronic. Inadequate control - Patient has own CPAP for use, but based on elevated CO2, and overall poor respiratory efforts is likely that this is not sufficient for adequate ventilation. - As noted above pulmonology has recommended patient be considered for trilogy machine now approved by insurance for home use - Respiratory therapy is consulted and will install trilogy machine for use tonight as trial (delayed one day from yesterday). Patient requires nocturnal and PRN daytime volume ventilation. BiPAP has been insufficient for optimal control due to severity of Obesity hyperventilation syndrome, which has been supported by the ABG and venous CO2 readings demonstrating CO2 retention, in addition to the opinion of consulting Laundry Sorter, Dr Myers. #Hypokalemia - Likely multiple diuretic medications are contributing to this now refractory condition. Therefore, we will discontinue hydrochlorothiazide. We will also decrease Lasix 80 mg a day - Continue spironolactone, we will increase dose to 50 mg by mouth daily. - We will give increased oral and IV potassium - Magnesium is wnl, diarrhea, previously suspected as source is improving, nearly resolved. - Check labs in a.m. # Healthcare associated pneumonia. Present on admission, met criteria for HCAP hospitalization within the last 90 days. Risk factors for MRSA and Pseudomonas. - IV Vancomycin July 23- then DC'd with negative MRSA swab - IV Levaquin followed by oral, total of 8 days, DC'd by Dr Yen - Chest x-ray on 07/30 worse, now multifocal infiltrates - Currently on oxygen at 2-5-3 L per nasal cannula,her usual at home is 3 L - Swallowing evaluation by speech therapy on July 23 did not show signs of aspiration, there was some concern mention for silent aspiration given radiologic findings of right-sided infiltrates. - Dr. Yen's consult and follow up today much appreciated -- he's not sure she had bacterial pneumonia but regardless doesn't need further antibiotics for this -- repeat procalcitonin is 0.13, down from 0.5 -- urine Legionella and pneumococcal antigens he ordered yesterday were negative -- ordered Serum cryptococcal antigen which is pending --BNP slightly above normal so less likely that CHF is causing multifocal infiltrates -- ordered CBC, CRP and sed rate for tomorrow morning -- ordered a CT scan noncontrast of the chest (if shows unexplained infiltrates consult Pulmonary) -- ordered some additional basic screening labs for vasculitis and/or autoimmune processes including GREG, rheumatoid factor, an JESSIE level for sarcoid. GREG negatrive, RH positive to date. - Pulmonology, Dr. Myers was consulted in addition further evaluation of lung findings. He concurs etiologies other than infectious may be the cause of patient's current findings. And is also waiting results of serologic studies to evaluate for possible autoimmune process. No further intervention or studies planned at this time. - Modified barium swallow was ordered demonstrating no evidence of silent aspiration/reflux aspiration, which would be consistent with radiologic findings to date. - Patient continues on supplemental oxygen - Ideally she will benefit from Trilogy breathing machine for submental support , this is pending insurance authorization I will make from much safer discharge if able to be achieved as patient appears to be inadequately ventilated with current CPAP machine. - We will continue to monitor appreciate specialist consultation very much. ID art sales consultant signed off given patient demonstrate no evidence of acute infection, will continue to look forward to the assistance of poultry scientist Dr. Myers. # Generalized weakness. Present on admission, however improved. Multifactorial metabolic derangements and poor baseline function with deconditioning RLS, resting tremors, obesity in addition to C. difficile colitis. probable CVA in the past. -Patient would like to go home with home health -Continue daily PT to increase mobility, given improvement strength patient now appears stable from discharge in place of SNF. # C.diff colitis, PCR+, -Continue vanc po qid for total 14days (started July 26) - Diarrhea is essentially resolved. Certainly may be contributing to weakness as noted above. #Shoulder pain: - PRN Percocet - Ice PRN. # Insulin-dependent diabetes mellitus with peripheral neuropathy. a1c10.6 -Blood sugars mostly in the 100s - 25unit Lantus each morning started on July 26 and then increased to 40 July 29, to 45U on August 05, and subsequently 50U August 06 given persistent hyperglycemia. - Pt additionally RX'd 10U HS, now increased to 15U to address AM hyperglycemia more aggressively, though elevation in BS tending to increase through the day, highest in afternoon/evenings. - Steroid use is likely contributing. -continue high dose correctional Lispro algorithm, -continuing Lyrica 150 mg bid # COPD. Presumed stable - continuing Neb treatments but does have mild wheezing so we will change to 4 times a day scheduled instead of just as needed - Added prednisone due to heavy wheezing july 27 and responding (although she denies) - continue Budesonide, Fluticasone # History of seizures/Restless Leg syndrome, chronic. Presumed stable - continuing Mirapex, Topamax and Lamotrigine # Tremor - Continue Mysoline. Consider Lyrica as the possible cause # ADD - Continue Adderall. Resume home dosing of Vyvanse here. # Anemia of chronic disease # Right knee and left plantar chronic skin ulcers - Wound care consulted to evaluate and treat foot ulcerations Disposition: Patient's potassium level will need to be corrected and maintained at near normal levels prior to discharge. Pain Evaluation: Adequate Pain Control GI Prophylaxis: Proton Pump Inhibitor VTE Prophylaxis: Sub-Q Enoxaparin VTE Mechanical Devices: Intermittant Pneumatic CD Resuscitation Status: CPR: Attempt Resuscitation Rosita Mendoza MD Aug 09, 2016 23:56
[2016-08-10] VITALS (7 sets, daily range): BP systolic 96–119; BP diastolic 57–59; PULSE 79–103; RESP 18–20; O2SAT 93–98
[2016-08-10] MEDS: Vancomycin 125 mg Oral Capsule PO SCH ×4 (02:29→21:41)
--- NOTE | 2016-08-10 05:16 | NUR ---
Noc activity pt has been pleasant and cooperative with care. Denies chest pain, sob, n/v or abd discomfort. Has been on 3LPM NC and not using CPAP, states that she feels more comfortable with the o2 on rather than cpap. HS meds administered as scheduled. VSS and has been afebrile overnight. Insulin administered per sliding scale. Intentional hourly rounding done and pt has slept most of the night.
[2016-08-10 06:29] LABS: Magnesium 2.6 mg/dL (1.6-2.6)
[2016-08-10] MEDS: Albuterol-Ipratropium 3 mL Inhalation Solution NEB SCH ×4 (07:17→20:30)
[2016-08-10] MEDS: Insulin LISPRO High-Dose Scale SUBQ SCH ×4 (08:03→21:44)
[2016-08-10] MEDS: Insulin GLARgine 100 Unit/mL Syringe SUBQ SCH ×2 (08:03→21:43)
[2016-08-10] MEDS: Potassium Chloride 20 mEq/15 mL 15mL Oral Soln PO SCH ×2 (08:05→16:59)
[2016-08-10] MEDS: Fluticasone-Salmeterol 500-50 Inhaler INHALATION SCH ×2 (08:05→21:43)
[2016-08-10] MEDS: lamoTRIgine 100 mg Tablet PO SCH ×2 (08:05→21:41)
[2016-08-10] MEDS: Pantoprazole 40 mg ER24 Tablet PO SCH ×2 (08:07→21:41)
[2016-08-10] MEDS: predniSONE 20 mg Tablet PO SCH (08:07)
[2016-08-10] MEDS: Amphetamines (Mixed) 10 mg Tablet PO SCH ×2 (08:07→15:07)
[2016-08-10] MEDS: VYVANSE 70 MG PO SCH (11:20)
[2016-08-10] MEDS: Fluticasone 0.05% 15 Spray/2 Gm 16 Gm Nasal Spray NASAL PRN (11:24)
--- NOTE | 2016-08-10 11:37 | NUR ---
Physical Therapy: Pt has been ambulating in hallway with staff and family, tolerating 1-2 laps with bariatric FWW and SBA. Recommend continued mobility with family and staff. Pt has met all PT goals and will be discharged from PT caseload at this time.
--- NOTE | 2016-08-10 14:36 | PCM.PNMED ---
Subjective Date of Service Aug 10, 2016 Subjective The patient is a little sad today because it is her birthday. However, she has no new complaints. She is now getting up out of bed to the bathroom by herself. Exam Vital Signs Vital Sign - Last Date Time Temp Pulse Resp B/P Pulse Ox O2 Delivery O2 Flow Rate FiO2 08/10/16 12:38 103 20 94 Nasal Cannula 2.00 08/10/16 10:09 36.7 96/59 Intake and Output 08/09/16 08/09/16 08/10/16 Cumulative From/Thru 15:00 23:00 07:00 07/23/16 15:00 - 08/10/16 06:53 Intake Total 672 ml 810 ml 36682 ml Output Total 1000 ml 1550 ml 22396 ml Balance -328 ml -740 ml -4625 ml Intake Oral 672 ml 800 ml 40906 ml IV Total 10 ml 18131 ml Output Urine Total 1000 ml 1550 ml 86770 ml Stool Total 450 ml Urine/Stool Mix 2150 ml # Voids 9 # Bowel Movements 1 29 Exam General: Patient is lying comfortably supine in bed in no apparent distress. However, she is exhibiting her essential tremor especially the right upper extremity. The lower extremities are very restless.. HEENT: Head is atraumatic and normocephalic. Eyes: Pupils are equally round and reactive to light and accommodation. Extraocular muscles are intact. Sclera are white, anicteric. Subconjunctival mucosa is pink. Ears and nose are unremarkable. Oropharynx: There is no mucosal lesions, there is no thrush, there is no pharyngitis. Neck: Is supple, there are no nodes, or masses or tenderness. Chest: Breath sounds are much clearer. Heart: Rate, rhythm is regular. There is no new murmur, rub or gallop. Abdomen: Good bowel sounds are present. Abdomen is obese, soft, nontender, no organomegaly or masses were appreciated. Extremities: Are symmetrical and well perfused. There is no edema, there is no cellulitis, no rash. Neurologic: Patient has an essential tremor of the right upper extremity at rest which has improved significantly since admission. Otherwise, there are no focal neurological deficits. Cranial nerves II through XII are intact. There are no sensory or motor deficits. The patient has generalized weakness. The patient strength has improved significantly since admission and she is able to ambulate with a walker with assistance now. Lower extremities are quite restless. Psychiatric: Patients mood is calm and she shows no sign of agitation. Genital: Deferred Rectal: Deferred Lab and Diagnostics Result Diagram: 08/09/16 0540 08/10/16 0545 Microbiology Blood cultures are negative at 24 hours Sputum culture is pending X-Rays, CTs and MRIs X-RAY CHEST ONE VIEW, PORTABLE 07/23 IMPRESSION: Right basilar opacity suggestive of pneumonia. Aspiration pneumonia cannot be excluded. Recommend interval followup to resolution and exclude presence of underlying mass lesion. Dictated by: Jackie Wing M.D. on 07/23/2016 at 16:42 Approved by: Jackie Wing M.D. on 07/23/2016 at 16:42 --- PROCEDURE: X-RAY ABDOMEN, ONE VIEW ([id number]) INDICATIONS: constipation TECHNIQUE: One view of the abdomen acquired. COMPARISON: None. FINDINGS: Surgical changes and devices: None. Bowel: Bowel gas pattern is normal. Moderate scattered stool. Soft tissues: No suspicious abdominal calcifications. Visualized solid organ contours appear normal in size. Bones: No suspicious bony lesions. IMPRESSION: Moderate scattered stool suggestive of mild constipation. No traction. Dictated by: Jackie Wing M.D. on 07/23/2016 at 16:42 Approved by: Jackie Wing M.D. on 07/23/2016 at 16:43 Cardiac Echo Impressions Echocardiogram Report Name: YOLIS LOBATO EStudy Date : 07/24/2016 Height: 6 8 in Hospital Exam Location: [facility] Weight: 2 39 lb Gender: Female BSA: 2.2 m2 : 1960 Age: 55 yrs BP: 102/5 6 mmHg Reason For Study: Possible Cardiomyopathy Performed By: Jia Chavez Referring Physician: ROSITA MENDOZA Interpretation Summary The left ventricle is normal in size. Left ventricular systolic function is normal without focal wall motion abnormalities. The ejection fraction is estimated to be 60-65%. Assessment of diastolic parameters indicates normal left ventricular diastolic function and normal filling pressures. The right ventricle is normal in size and function. The right ventricular systolic pressure is estimated at 38 mmHg assuming a right atrial pressure of 3 mm Hg. The left atrial size is normal. Borderline right atrial enlargement. There is no significant valvular heart disease. No signficant changes in comparison with all 3 prior echo studies since 2015. Assessment & Plan Yolis Lobato is a 55 year old morbidly obese female with a complex medical history including recent CVA x2, chronic respiratory failure secondary to COPD, obstructive asthma, CHF, type II diabetes mellitus, diabetic neuropathy, previous upper extremity DVT s/p PICC line on Warfarin, seizure disorder, GERD and bipolar disorder who presents to [facility] emergency department via EMS complaining of generalized weakness # Restrictive lung disease secondary to Obesity hypoventilation/KENAN on CPAP/ BiPAP therapy, chronic. Inadequate control - Patient has own CPAP for use, but based on elevated CO2, and overall poor respiratory efforts is likely that this is not sufficient for adequate ventilation. - As noted above pulmonology has recommended patient be considered for trilogy machine now approved by insurance for home use - Respiratory therapy is consulted and will install trilogy machine for use. Patient requires nocturnal and PRN daytime volume ventilation. BiPAP has been insufficient for optimal control due to severity of Obesity hyperventilation syndrome, which has been supported by the ABG and venous CO2 readings demonstrating CO2 retention, in addition to the opinion of consulting [employer] [place], Dr Myers. #Hypokalemia, present at the time of admission. Active but Improved on high- dose oral replacement therapy with 120 mEq of potassium chloride by mouth daily - Likely multiple diuretic medications are contributing to this now refractory condition. Therefore, we have discontinued hydrochlorothiazide. We will also have decreased Lasix 80 mg a day. - Continue spironolactone, we have increased dose to 50 mg by mouth daily. - We have given increased oral and IV potassium - Magnesium is wnl, diarrhea, previously suspected as source is improving, nearly resolved. - Check labs in a.m. as multiple variables have changed in the management of the patient's potassium, she will need very close monitoring for the next couple of days. Will decrease potassium replacement from 120 mEq by mouth daily to 80 mg by mouth daily. # Healthcare associated pneumonia. Present on admission, met criteria for HCAP hospitalization within the last 90 days. Risk factors for MRSA and Pseudomonas. - IV Vancomycin July 23- then DC'd with negative MRSA swab - IV Levaquin followed by oral, total of 8 days, DC'd by Dr Yen - Chest x-ray on 07/30 worse, now multifocal infiltrates - Currently on oxygen at 2-5-3 L per nasal cannula,her usual at home is 3 L - Swallowing evaluation by speech therapy on July 23 did not show signs of aspiration, there was some concern mention for silent aspiration given radiologic findings of right-sided infiltrates. - Dr. Yen's consult and follow up today much appreciated -- he's not sure she had bacterial pneumonia but regardless doesn't need further antibiotics for this -- repeat procalcitonin is 0.13, down from 0.5 -- urine Legionella and pneumococcal antigens he ordered yesterday were negative -- ordered Serum cryptococcal antigen which is pending --BNP slightly above normal so less likely that CHF is causing multifocal infiltrates -- ordered CBC, CRP and sed rate for tomorrow morning -- ordered a CT scan noncontrast of the chest (if shows unexplained infiltrates consult Pulmonary) -- ordered some additional basic screening labs for vasculitis and/or autoimmune processes including GREG, rheumatoid factor, an JESSIE level for sarcoid. GREG negatrive, RH positive to date. - Pulmonology, Dr. Myers was consulted in addition further evaluation of lung findings. He concurs etiologies other than infectious may be the cause of patient's current findings. And is also waiting results of serologic studies to evaluate for possible autoimmune process. No further intervention or studies planned at this time. - Modified barium swallow was ordered demonstrating no evidence of silent aspiration/reflux aspiration, which would be consistent with radiologic findings to date. - Patient continues on supplemental oxygen - Ideally she will benefit from Trilogy breathing machine for submental support , this is pending insurance authorization I will make from much safer discharge if able to be achieved as patient appears to be inadequately ventilated with current CPAP machine. - We will continue to monitor appreciate specialist consultation very much. ID internal controls consultant signed off given patient demonstrate no evidence of acute infection, will continue to look forward to the assistance of chart changer Dr. Myers. # Generalized weakness. Present on admission, however improved. Multifactorial metabolic derangements and poor baseline function with deconditioning RLS, resting tremors, obesity in addition to C. difficile colitis. probable CVA in the past. -Patient would like to go home with home health -Continue daily PT to increase mobility, given improvement strength patient now appears stable from discharge in place of SNF. # C.diff colitis, PCR+, -Continue vanc po qid for total 14days (started July 26) - Diarrhea is essentially resolved. Certainly may be contributing to weakness as noted above. #Shoulder pain: - PRN Percocet - Ice PRN. # Insulin-dependent diabetes mellitus with peripheral neuropathy. [id number] -Blood sugars mostly in the 100s - 25unit Lantus each morning started on July 26 and then increased to 40 July 29, to 45U on August 05, and subsequently 50U August 06 given persistent hyperglycemia. - Pt additionally RX'd 10U HS, now increased to 15U to address AM hyperglycemia more aggressively, though elevation in BS tending to increase through the day, highest in afternoon/evenings. - Steroid use is likely contributing. -continue high dose correctional Lispro algorithm, -continuing Lyrica 150 mg bid # COPD. Presumed stable - continuing Neb treatments but does have mild wheezing so we will change to 4 times a day scheduled instead of just as needed - Added prednisone due to heavy wheezing july 27 and responding (although she denies) - continue Budesonide, Fluticasone # History of seizures/Restless Leg syndrome, chronic. Presumed stable - continuing Mirapex, Topamax and Lamotrigine # Tremor - Continue Mysoline. Consider Lyrica as the possible cause # ADD - Continue Adderall. Resume home dosing of Vyvanse here. # Anemia of chronic disease # Right knee and left plantar chronic skin ulcers - Wound care consulted to evaluate and treat foot ulcerations, we appreciated their time and expertise. Disposition: Patient's potassium level will need to be corrected and maintained at near normal levels prior to discharge. I suspect the patient will be here another 48 hours. Pain Evaluation: Adequate Pain Control GI Prophylaxis: Proton Pump Inhibitor VTE Prophylaxis: Sub-Q Enoxaparin VTE Mechanical Devices: Intermittant Pneumatic CD Resuscitation Status: CPR: Attempt Resuscitation Rosita Mendoza MD Aug 10, 2016 14:36
--- NOTE | 2016-08-10 18:40 | NUR ---
dressing change changed left foot, right knee and right heel dressings per wound care instructions after pt took shower. No drainage.
[2016-08-10] MEDS: DULoxetine 30 mg DR Capsule PO SCH (21:42)
[2016-08-10] MEDS: Tiotropium 18mcg/Cap 5 Capsule Inhaler Kit INHALATION SCH (21:43)
[2016-08-11] MEDS: Vancomycin 125 mg Oral Capsule PO SCH ×4 (03:08→21:49)
[2016-08-11] MEDS: oxyCODONE-Acetamin 5-325 mg Tablet PO PRN ×4 (05:35→20:04)
[2016-08-11 05:38] VITALS: BP 109/68; PULSE 85; RESP 18; O2SAT 95
--- NOTE | 2016-08-11 06:25 | NUR ---
NOC activity Pt denies chest pain, sob, n/v or abd discomfort. Has been on 1.5LPM NC and has been saturating 94%. Reports of headache in the morning. Controlled with percocet PRN. HS meds administered as scheduled and insulin per sliding scale. Intentional hourly rounding done, VSS and pt has slept most of the night.
[2016-08-11 07:19] LABS: Magnesium 2.5 mg/dL (1.6-2.6)
[2016-08-11 07:27] VITALS: PULSE 80; RESP 20; O2SAT 92
[2016-08-11] MEDS: Albuterol-Ipratropium 3 mL Inhalation Solution NEB SCH ×4 (07:27→19:29)
[2016-08-11] MEDS: Fluticasone-Salmeterol 500-50 Inhaler INHALATION SCH ×2 (08:45→21:48)
[2016-08-11] MEDS: Fluticasone 0.05% 15 Spray/2 Gm 16 Gm Nasal Spray NASAL PRN (08:45)
[2016-08-11] MEDS: Insulin GLARgine 100 Unit/mL Syringe SUBQ SCH ×2 (08:47→21:51)
[2016-08-11] MEDS: lamoTRIgine 100 mg Tablet PO SCH ×2 (08:47→21:49)
[2016-08-11] MEDS: Insulin LISPRO High-Dose Scale SUBQ SCH ×4 (08:51→21:52)
[2016-08-11] MEDS: Amphetamines (Mixed) 10 mg Tablet PO SCH ×2 (08:53→15:44)
[2016-08-11] MEDS: Pantoprazole 40 mg ER24 Tablet PO SCH ×2 (08:54→21:50)
[2016-08-11] MEDS: predniSONE 20 mg Tablet PO SCH (08:54)
[2016-08-11] MEDS: VYVANSE 70 MG PO SCH (09:06)
--- NOTE | 2016-08-11 11:42 | NUR ---
Respiratory Pt refused Tx at this time, stated "I don't feel well". RN aware
[2016-08-11 14:54] VITALS: BP 117/64; PULSE 97; RESP 18; O2SAT 96
[2016-08-11 16:14] VITALS: PULSE 89; RESP 18; O2SAT 96
--- NOTE | 2016-08-11 16:59 | NUR ---
Oxygen Pt on 1.5L of O2 via NC sating at 94%. Denies SOB or feeling wheezing. Will continue to monitor.
[2016-08-11] MEDS ORDERED: Potassium Chloride 20 mEq/15 mL 15mL Oral Soln PO SCH (17:30)
[2016-08-11 19:30] VITALS: PULSE 95; RESP 18; O2SAT 97
[2016-08-11 20:46] VITALS: BP 114/67; PULSE 94; RESP 18; O2SAT 95
--- NOTE | 2016-08-11 21:21 | PCM.PNMED ---
Subjective Date of Service Aug 11, 2016 Subjective The patient states that she does not feel well today at all and she cannot explain to me why. She just does not feel well. She has no other new complaints. She has no further diarrhea, no fever, no chills and no diaphoresis. She has no shortness of breath. Exam Vital Signs Vital Sign - Last Date Time Temp Pulse Resp B/P Pulse Ox O2 Delivery O2 Flow Rate FiO2 08/11/16 20:46 36.5 94 18 114/67 95 Nasal Cannula 1.00 Intake and Output 08/10/16 08/10/16 08/11/16 Cumulative From/Thru 15:00 23:00 07:00 07/23/16 15:00 - 08/11/16 06:09 Intake Total 2000 ml 380 ml 32789 ml Output Total 1400 ml 1200 ml 95959 ml Balance 600 ml -820 ml -4845 ml Intake Oral 2000 ml 380 ml 64822 ml IV Total 33684 ml Output Urine Total 1400 ml 1200 ml 22866 ml Stool Total 450 ml Urine/Stool Mix 2150 ml # Voids 9 # Bowel Movements 29 Exam General: Patient is lying comfortably supine in bed in no apparent distress. Her tremor is not as prominent today. HEENT: Head is atraumatic and normocephalic. Eyes: Pupils are equally round and reactive to light and accommodation. Extraocular muscles are intact. Sclera are white, anicteric. Subconjunctival mucosa is pink. Ears and nose are unremarkable. Oropharynx: There is no mucosal lesions, there is no thrush, there is no pharyngitis. Neck: Is supple, there are no nodes, or masses or tenderness. Chest: Breath sounds are clear. Heart: Rate, rhythm is regular. There is no new murmur, rub or gallop. Abdomen: Good bowel sounds are present. Abdomen is obese, soft, nontender, no organomegaly or masses were appreciated. Extremities: Are symmetrical and well perfused. There is no edema, there is no cellulitis, no rash. Neurologic: Patient has an essential tremor of the right upper extremity at rest which has improved significantly since admission. Otherwise, there are no focal neurological deficits. Cranial nerves II through XII are intact. There are no sensory or motor deficits. The patient has generalized weakness. The patient strength has improved significantly since admission and she is able to ambulate with a walker with assistance now. Lower extremities are quite restless. Psychiatric: Patients mood is calm and she shows no sign of agitation. Genital: Deferred Rectal: Deferred Lab and Diagnostics Result Diagram: 08/09/16 0540 08/11/16 0620 Microbiology Blood cultures are negative at 24 hours Sputum culture is pending X-Rays, CTs and MRIs X-RAY CHEST ONE VIEW, PORTABLE 07/23 IMPRESSION: Right basilar opacity suggestive of pneumonia. Aspiration pneumonia cannot be excluded. Recommend interval followup to resolution and exclude presence of underlying mass lesion. Dictated by: Jackie Wing M.D. on 07/23/2016 at 16:42 Approved by: Jackie Wing M.D. on 07/23/2016 at 16:42 --- PROCEDURE: X-RAY ABDOMEN, ONE VIEW ([id number]) INDICATIONS: constipation TECHNIQUE: One view of the abdomen acquired. COMPARISON: None. FINDINGS: Surgical changes and devices: None. Bowel: Bowel gas pattern is normal. Moderate scattered stool. Soft tissues: No suspicious abdominal calcifications. Visualized solid organ contours appear normal in size. Bones: No suspicious bony lesions. IMPRESSION: Moderate scattered stool suggestive of mild constipation. No traction. Dictated by: Jackie Wing M.D. on 07/23/2016 at 16:42 Approved by: Jackie Wing M.D. on 07/23/2016 at 16:43 Cardiac Echo Impressions Echocardiogram Report Name: YOLIS LOBATO EStudy Date : 07/24/2016 Height: 6 8 in Hospital Exam Location: [facility] Weight: 2 39 lb Gender: Female BSA: 2.2 m2 : 1960 Age: 55 yrs BP: 102/5 6 mmHg Reason For Study: Possible Cardiomyopathy Performed By: Jia Chavez Referring Physician: ROSITA MENDOZA Interpretation Summary The left ventricle is normal in size. Left ventricular systolic function is normal without focal wall motion abnormalities. The ejection fraction is estimated to be 60-65%. Assessment of diastolic parameters indicates normal left ventricular diastolic function and normal filling pressures. The right ventricle is normal in size and function. The right ventricular systolic pressure is estimated at 38 mmHg assuming a right atrial pressure of 3 mm Hg. The left atrial size is normal. Borderline right atrial enlargement. There is no significant valvular heart disease. No signficant changes in comparison with all 3 prior echo studies since 2015. Assessment & Plan Yolis Lobato is a 55 year old morbidly obese female with a complex medical history including recent CVA x2, chronic respiratory failure secondary to COPD, obstructive asthma, CHF, type II diabetes mellitus, diabetic neuropathy, previous upper extremity DVT s/p PICC line on Warfarin, seizure disorder, GERD and bipolar disorder who presents to [facility] emergency department via EMS complaining of generalized weakness # Restrictive lung disease secondary to Obesity hypoventilation/KENAN on CPAP/ BiPAP therapy, chronic. Inadequate control - Patient has own CPAP for use, but based on elevated CO2, and overall poor respiratory efforts is likely that this is not sufficient for adequate ventilation. - As noted above pulmonology has recommended patient be considered for trilogy machine now approved by insurance for home use - Respiratory therapy is consulted and will install trilogy machine for use. Patient requires nocturnal and PRN daytime volume ventilation. BiPAP has been insufficient for optimal control due to severity of Obesity hyperventilation syndrome, which has been supported by the ABG and venous CO2 readings demonstrating CO2 retention, in addition to the opinion of consulting Multi Operation Forming Machine Setter, Dr Myers. #Hypokalemia, present at the time of admission. Active but Improved on high- dose oral replacement therapy - Likely multiple diuretic medications are contributing to this now refractory condition. Therefore, we have discontinued hydrochlorothiazide. We will also have decreased Lasix 80 mg a day. - Continue spironolactone, we have increased dose to 50 mg by mouth daily. - We have given increased oral and IV potassium. However with discontinuing hydrochlorothiazide and reducing Lasix and adding Aldactone potassium requirements are markedly reduced. Will decrease potassium replacement to 20 mg by mouth 2 times a day - Magnesium is wnl, diarrhea, previously suspected as source is improving, nearly resolved. - Check labs in a.m. as mentioned above multiple variables have changed in the management of the patient's potassium, she will continue to need very close monitoring for the next couple of days. # Healthcare associated pneumonia. Present on admission, met criteria for HCAP hospitalization within the last 90 days. Risk factors for MRSA and Pseudomonas. - IV Vancomycin July 23- then DC'd with negative MRSA swab - IV Levaquin followed by oral, total of 8 days, DC'd by Dr Yen - Chest x-ray on 07/30 worse, now multifocal infiltrates - Currently on oxygen at 2-5-3 L per nasal cannula,her usual at home is 3 L - Swallowing evaluation by speech therapy on July 23 did not show signs of aspiration, there was some concern mention for silent aspiration given radiologic findings of right-sided infiltrates. - Dr. Yen's consult and follow up today much appreciated -- he's not sure she had bacterial pneumonia but regardless doesn't need further antibiotics for this -- repeat procalcitonin is 0.13, down from 0.5 -- urine Legionella and pneumococcal antigens he ordered yesterday were negative -- ordered Serum cryptococcal antigen which is pending --BNP slightly above normal so less likely that CHF is causing multifocal infiltrates -- ordered a CT scan noncontrast of the chest which showed unexplained infiltrates. Therefore Pulmonary consult was obtained -- ordered some additional basic screening labs for vasculitis and/or autoimmune processes including GREG, rheumatoid factor, an JESSIE level for sarcoid. GREG negatrive, RH positive to date. - Pulmonology, Dr. Myers was consulted in addition further evaluation of lung findings. He concurs etiologies other than infectious may be the cause of patient's current findings. And is also waiting results of serologic studies to evaluate for possible autoimmune process. No further intervention or studies planned at this time. Serologic studies looking for autoimmune causes so far have been unrevealing. - Modified barium swallow was ordered demonstrating no evidence of silent aspiration/reflux aspiration, which would be consistent with radiologic findings to date. - Patient continues on supplemental oxygen - Ideally she will benefit from Trilogy breathing machine for submental support , this is pending insurance authorization I will make from much safer discharge if able to be achieved as patient appears to be inadequately ventilated with current CPAP machine. - We will continue to monitor appreciate specialist consultation very much. ID sales consultant signed off given patient demonstrate no evidence of acute infection, will continue to look forward to the assistance of naval inspector Dr. Kendergan. # Generalized weakness. Present on admission, however improved. Multifactorial metabolic derangements and poor baseline function with deconditioning RLS, resting tremors, obesity in addition to C. difficile colitis. probable CVA in the past. -Patient would like to go home with home health -Continue daily PT to increase mobility, given improvement strength patient now appears stable from discharge in place of SNF. # C.diff colitis, PCR+, -Continue vanc po qid for total 14days (started July 26) - Diarrhea is essentially resolved. Certainly may be contributing to weakness as noted above. #Shoulder pain: - PRN Percocet - Ice PRN. # Insulin-dependent diabetes mellitus with peripheral neuropathy. a1c10.6 -Blood sugars mostly in the 100s - 25unit Lantus each morning started on July 26 and then increased to 40 July 29, to 45U on August 05, and subsequently 50U August 06 given persistent hyperglycemia. - Pt additionally RX'd 10U HS, now increased to 15U to address AM hyperglycemia more aggressively, though elevation in BS tending to increase through the day, highest in afternoon/evenings. - Steroid use is likely contributing. -continue high dose correctional Lispro algorithm, -continuing Lyrica 150 mg bid # COPD. Presumed stable - continuing Neb treatments but does have mild wheezing so we will change to 4 times a day scheduled instead of just as needed - Added prednisone due to heavy wheezing july 27 and responding (although she denies) - continue Budesonide, Fluticasone # History of seizures/Restless Leg syndrome, chronic. Presumed stable - continuing Mirapex, Topamax and Lamotrigine # Tremor - Continue Mysoline. Consider Lyrica as the possible cause # ADD - Continue Adderall. Resume home dosing of Vyvanse here. # Anemia of chronic disease # Right knee and left plantar chronic skin ulcers - Wound care consulted to evaluate and treat foot ulcerations, we appreciated their time and expertise. Disposition: Patient's potassium level will need to be corrected and maintained at near normal levels prior to discharge. I suspect the patient will be here another 24-48 hours. Pain Evaluation: Adequate Pain Control GI Prophylaxis: Proton Pump Inhibitor VTE Prophylaxis: Sub-Q Enoxaparin VTE Mechanical Devices: Venous Foot Pump Resuscitation Status: CPR: Attempt Resuscitation Rosita Mendoza MD Aug 11, 2016 21:21
[2016-08-11] MEDS: DULoxetine 30 mg DR Capsule PO SCH (21:49)
[2016-08-11] MEDS: Tiotropium 18mcg/Cap 5 Capsule Inhaler Kit INHALATION SCH (21:51)
[2016-08-12] VITALS (7 sets, daily range): BP systolic 109–122; BP diastolic 68–73; PULSE 77–112; RESP 19–24; O2SAT 92–97
[2016-08-12] MEDS: Vancomycin 125 mg Oral Capsule PO SCH ×4 (02:22→21:03)
--- NOTE | 2016-08-12 05:49 | NUR ---
Noc activity Pt denies chest pain, sob, n/v or abd discomfort. Has been pleasant and cooperative with care. Noted mild cough but has been relief with tessalon. Intentional hourly rounding done. VSS and has been afebrile. HS meds administered as scheduled and insulin per sliding scale. Will continue to monitor.
[2016-08-12 05:52] LABS: BASOPHILS % (AUTO) 0.3 % (0-3); EOSINOPHILS % (AUTO) 4.2 % (0-5); MONOCYTES % (AUTO) 5.8 % (4-12); Mean Corpuscular Hemoglobin 29.3 pg (27.0-35.0); Mean Corpuscular Volume 93.9 fL (81-100); NEUTROPHILS % (AUTO) 66.3 % (40-74); Platelet Count 305 bil/L (150-400)
[2016-08-12 06:19] LABS: Magnesium 2.5 mg/dL (1.6-2.6)
[2016-08-12 06:37] LABS: ERYTHROCYTE SEDIMENTATION RATE 22 mm/hr (0-40)
[2016-08-12 07:08] LABS: Thermoactinomyces candidus Ab Negative (Negative)
[2016-08-12] MEDS: Albuterol-Ipratropium 3 mL Inhalation Solution NEB SCH ×4 (07:18→21:19)
[2016-08-12] MEDS: Insulin LISPRO High-Dose Scale SUBQ SCH ×4 (08:13→21:02)
[2016-08-12] MEDS: Fluticasone-Salmeterol 500-50 Inhaler INHALATION SCH ×2 (08:14→21:00)
[2016-08-12] MEDS: Amphetamines (Mixed) 10 mg Tablet PO SCH ×2 (08:16→15:21)
[2016-08-12] MEDS: predniSONE 20 mg Tablet PO SCH (08:17)
[2016-08-12] MEDS: Potassium Chloride 20 mEq/15 mL 15mL Oral Soln PO SCH (08:17)
[2016-08-12] MEDS: VYVANSE 70 MG PO SCH (08:17)
[2016-08-12] MEDS: lamoTRIgine 100 mg Tablet PO SCH ×2 (08:18→21:03)
[2016-08-12] MEDS: Insulin GLARgine 100 Unit/mL Syringe SUBQ SCH ×2 (08:20→21:01)
[2016-08-12] MEDS: Pantoprazole 40 mg ER24 Tablet PO SCH ×2 (09:13→21:03)
--- NOTE | 2016-08-12 11:20 | NUR ---
teary eyed pt is visibly upset over her lab results and the fact that her discharge date is being pushed back again. pt on the phone with family member.
--- NOTE | 2016-08-12 11:28 | DRSVH ---
PROCEDURE: X-RAY CHEST, TWO VIEWS ([id number]) INDICATIONS: follow-up for bilateral pulmonary infiltrates TECHNIQUE: 2 views of the chest were acquired. COMPARISON: [facility], CR, XR CHEST 1VW (PORTABLE), 08/03/2016, 8:31. [facility], CR, XR CHEST 2VW, 07/30/2016, 7:58. FINDINGS: Surgical changes and devices: Lower cervical spine fixation hardware. Epigastric surgical clips. Lungs and pleura: Interval decrease in the right upper and bibasilar air space opacities suggesting r esolving pneumonia. Mediastinum: Mediastinal contours are normal. Heart size is normal. Bones and chest wall: No suspicious bony abnormalities. Soft tissues appear unremarkable. IMPRESSION: Resolving pneumonia. Dictated by: Elio MERCER Interpreted: Juany Torres MD on 08/12/2016 at 10:00 Approved by: Juany Torres M.D. on 08/12/2016 at 11:26
[2016-08-12] MEDS: oxyCODONE-Acetamin 5-325 mg Tablet PO PRN ×2 (11:30→12:59)
--- NOTE | 2016-08-12 14:08 | NUR ---
Social Work-readiness for discharge: Data:EMR Reviewed. Pt is on day 20 of hospitalization for pneumonia per H&P. Pt is not medically stable anticipate 1-2 more days. PT has cleared pt for home with . SW has made referral to [facility] for RN,PT,OT, and VAL[employer] PARKING ATTENDANT. DORY spoke with Tala from [facility] today regarding trilogy. [facility] insurance authorization has not yet been obtained, but [facility] states pt can discharge home with trilogy prior to this being authorized and can take machine home. DORY has requested RX from for kristie devine. F2F to be completed by . SW will continue to follow. Assessment:Pt who would benefit from HH. Plan:Pt to discharge home when medically stable via POV. Referral sent to [facility]-RN,PT,OT, and VALET PARKING ATTENDANT. Pt to benefit from Trilogy for home. DORY has requested RX from for kristie last. F2F to be completed by . DORY will continue to follow. SVETLANA Roldan
--- NOTE | 2016-08-12 14:40 | NUR ---
NUTRITION FOLLOW-UP: ASSESS: 55 YO Female admitted with pneumonia, weakness, constipation. PO intake has been good at 100% of meals. Pt will likely need 1-2 day before discharge per notes. PMHX: Type II Diabetes, COPD, CVA, CHF, DVT, Morbid obesity, obstructive asthma, diabetic neuropathy, seizure disorder, GERD. DIET: Diabetic Heart Healthy. PO 100%. LABS: Reviewed. Glu 208, Alb 3.8. MEDS: Reviewed GI: BM x 1 (08/12) WEIGHT: 106.9 kg. admit: 109 kg BMI: 36.4 IBW: 63.64 kg. EST.NEEDS: Obesity/COPD Kcal: 5676-8973 (22-25 kcal/kg BW) Pro: 75-95 g (1.2-1.5 g/kg IBW) NUTRITION DIAGNOSIS: (1) Altered nutrition related laboratory values related to uncontrolled diabetes as evidenced by A1c 10.6 --PERSISTS. INTERVENTION: (1) Attempted diabetic education 06/18--Pt declined. MONITOR/EVALUATE: PO intake, labs, nutritional status. Follow per low nutritional risk guidelines.
[2016-08-12] MEDS: Tiotropium 18mcg/Cap 5 Capsule Inhaler Kit INHALATION SCH (21:00)
[2016-08-12] MEDS: DULoxetine 30 mg DR Capsule PO SCH (21:03)
--- NOTE | 2016-08-12 23:20 | PCM.PNMED ---
Subjective Date of Service Aug 12, 2016 Subjective Patient still does not feel well. However, she feels little bit better than yesterday. Has no new specific complaints. Other than increased cough. Exam Vital Signs Vital Sign - Last Date Time Temp Pulse Resp B/P Pulse Ox O2 Delivery O2 Flow Rate FiO2 08/12/16 22:06 37.0 101 20 122/73 96 Nasal Cannula 3.00 Intake and Output 08/11/16 08/11/16 08/12/16 Cumulative From/Thru 15:00 23:00 07:00 07/23/16 15:00 - 08/12/16 06:33 Intake Total 2900 ml 10 ml 22254 ml Output Total 1800 ml 27520 ml Balance 1100 ml 10 ml -3735 ml Intake Oral 2900 ml 83104 ml IV Total 10 ml 11249 ml Output Urine Total 1800 ml 25299 ml Stool Total 450 ml Urine/Stool Mix 2150 ml # Voids 9 # Bowel Movements 3 32 Exam General: Patient is lying comfortably supine in bed in no apparent distress. HEENT: Head is atraumatic and normocephalic. Eyes: Pupils are equally round and reactive to light and accommodation. Extraocular muscles are intact. Sclera are white, anicteric. Subconjunctival mucosa is pink. Ears and nose are unremarkable. Oropharynx: There is no mucosal lesions, there is no thrush, there is no pharyngitis. Neck: Is supple, there are no nodes, or masses or tenderness. Chest: Breath sounds are clear. Heart: Rate, rhythm is regular. There is no new murmur, rub or gallop. Abdomen: Good bowel sounds are present. Abdomen is obese, soft, nontender, no organomegaly or masses were appreciated. Extremities: Are symmetrical and well perfused. There is no edema, there is no cellulitis, no rash. Neurologic: Patient has an essential tremor of the right upper extremity at rest which has improved significantly since admission. Otherwise, there are no focal neurological deficits. Cranial nerves II through XII are intact. There are no sensory or motor deficits. The patient has generalized weakness. The patient strength has improved significantly since admission and she is able to ambulate with a walker with assistance now. Lower extremities are quite restless. Psychiatric: Patients mood is calm and she shows no sign of agitation. Genital: Deferred Rectal: Deferred Lab and Diagnostics Result Diagram: 08/12/16 0510 08/12/16 0510 Microbiology Blood cultures are negative at 24 hours Sputum culture is pending X-Rays, CTs and MRIs PROCEDURE: X-RAY CHEST, TWO VIEWS ([id number]) INDICATIONS: follow-up for bilateral pulmonary infiltrates TECHNIQUE: 2 views of the chest were acquired. COMPARISON: [facility], CR, XR CHEST 1VW (PORTABLE), 08/03/2016, 8: 31. [facility], CR, XR CHEST 2VW, 07/30/2016, 7:58. FINDINGS: Surgical changes and devices: Lower cervical spine fixation hardware. Epigastric surgical clips. Lungs and pleura: Interval decrease in the right upper and bibasilar air space opacities suggesting resolving pneumonia. Mediastinum: Mediastinal contours are normal. Heart size is normal. Bones and chest wall: No suspicious bony abnormalities. Soft tissues appear unremarkable. IMPRESSION: Resolving pneumonia. Dictated by: Elio Bell [facility] Interpreted: Juany Torres MD on 08/12/2016 at 10: 00 Approved by: Juany Torres M.D. on 08/12/2016 at 11:26 X-RAY CHEST ONE VIEW, PORTABLE 07/23 IMPRESSION: Right basilar opacity suggestive of pneumonia. Aspiration pneumonia cannot be excluded. Recommend interval followup to resolution and exclude presence of underlying mass lesion. Dictated by: Jackie Wing M.D. on 07/23/2016 at 16:42 Approved by: Jackie Wing M.D. on 07/23/2016 at 16:42 --- PROCEDURE: X-RAY ABDOMEN, ONE VIEW ([id number]) INDICATIONS: constipation TECHNIQUE: One view of the abdomen acquired. COMPARISON: None. FINDINGS: Surgical changes and devices: None. Bowel: Bowel gas pattern is normal. Moderate scattered stool. Soft tissues: No suspicious abdominal calcifications. Visualized solid organ contours appear normal in size. Bones: No suspicious bony lesions. IMPRESSION: Moderate scattered stool suggestive of mild constipation. No traction. Dictated by: Jackie Wing M.D. on 07/23/2016 at 16:42 Approved by: Jackie Wing M.D. on 07/23/2016 at 16:43 Cardiac Echo Impressions Echocardiogram Report Name: YOLIS LOBATO EStudy Date : 07/24/2016 Height: 6 8 in Hospital Exam Location: [facility] Weight: 2 39 lb Gender: Female BSA: 2.2 m2 : 1960 Age: 55 yrs BP: 102/5 6 mmHg Reason For Study: Possible Cardiomyopathy Performed By: Jia Chavez Referring Physician: ROSITA MENDOZA Interpretation Summary The left ventricle is normal in size. Left ventricular systolic function is normal without focal wall motion abnormalities. The ejection fraction is estimated to be 60-65%. Assessment of diastolic parameters indicates normal left ventricular diastolic function and normal filling pressures. The right ventricle is normal in size and function. The right ventricular systolic pressure is estimated at 38 mmHg assuming a right atrial pressure of 3 mm Hg. The left atrial size is normal. Borderline right atrial enlargement. There is no significant valvular heart disease. No signficant changes in comparison with all 3 prior echo studies since 2014. Assessment & Plan Yolis Lobato is a 55 year old morbidly obese female with a complex medical history including recent CVA x2, chronic respiratory failure secondary to COPD, obstructive asthma, CHF, type II diabetes mellitus, diabetic neuropathy, previous upper extremity DVT s/p PICC line on Warfarin, seizure disorder, GERD and bipolar disorder who presents to [facility] emergency department via EMS complaining of generalized weakness # Restrictive lung disease secondary to Obesity hypoventilation/KENAN on CPAP/ BiPAP therapy, chronic. Inadequate control - Patient has own CPAP for use, but based on elevated CO2, and overall poor respiratory efforts is likely that this is not sufficient for adequate ventilation. - As noted above pulmonology has recommended patient be considered for trilogy machine now approved by insurance for home use - Respiratory therapy is consulted and will install trilogy machine for use. Patient requires nocturnal and PRN daytime volume ventilation. BiPAP has been insufficient for optimal control due to severity of Obesity hyperventilation syndrome, which has been supported by the ABG and venous CO2 readings demonstrating CO2 retention, in addition to the opinion of consulting Shaker Washer, Dr Myers. # Hypokalemia, present at the time of admission. Active but Improved on high- dose oral replacement therapy - Likely multiple diuretic medications are contributing to this now refractory condition. Therefore, we have discontinued hydrochlorothiazide. We will also have decreased Lasix 80 mg a day. - Continue spironolactone, we have increased dose to 50 mg by mouth daily. As potassium continues to rise will decrease dose back to 25 mg by mouth daily - We have given increased oral and IV potassium. However with discontinuing hydrochlorothiazide and reducing Lasix and adding Aldactone potassium requirements are markedly reduced. Will decrease potassium replacement to 20 mg by mouth once a day - Magnesium is wnl, diarrhea, previously suspected as source is improving, nearly resolved. - Check labs in a.m. as mentioned above multiple variables have changed in the management of the patient's potassium, she will continue to need very close monitoring for the next couple of days. # Healthcare associated pneumonia. Present on admission, met criteria for HCAP hospitalization within the last 90 days. Risk factors for MRSA and Pseudomonas. - IV Vancomycin July 23- then DC'd with negative MRSA swab - IV Levaquin followed by oral, total of 8 days, DC'd by Dr Yen - Chest x-ray on 07/30 worse, now multifocal infiltrates - Currently on oxygen at 2-5-3 L per nasal cannula,her usual at home is 3 L - Swallowing evaluation by speech therapy on July 23 did not show signs of aspiration, there was some concern mention for silent aspiration given radiologic findings of right-sided infiltrates. - Dr. Yen's consult and follow up today much appreciated -- he's not sure she had bacterial pneumonia but regardless doesn't need further antibiotics for this -- repeat procalcitonin is 0.13, down from 0.5 -- urine Legionella and pneumococcal antigens he ordered yesterday were negative -- ordered Serum cryptococcal antigen which is pending --BNP slightly above normal so less likely that CHF is causing multifocal infiltrates -- ordered a CT scan noncontrast of the chest which showed unexplained infiltrates. Therefore Pulmonary consult was obtained -- ordered some additional basic screening labs for vasculitis and/or autoimmune processes including GREG, rheumatoid factor, an JESSIE level for sarcoid. GREG negatrive, RH positive to date. - Pulmonology, Dr. Myers was consulted in addition further evaluation of lung findings. He concurs etiologies other than infectious may be the cause of patient's current findings. And is also waiting results of serologic studies to evaluate for possible autoimmune process. No further intervention or studies planned at this time. Serologic studies looking for autoimmune causes so far have been unrevealing. - Modified barium swallow was ordered demonstrating no evidence of silent aspiration/reflux aspiration, which would be consistent with radiologic findings to date. - Patient continues on supplemental oxygen - Ideally she will benefit from Trilogy breathing machine for submental support , this is pending insurance authorization I will make from much safer discharge if able to be achieved as patient appears to be inadequately ventilated with current CPAP machine. - We will continue to monitor appreciate specialist consultation very much. ID lean process deployment consultant signed off given patient demonstrate no evidence of acute infection, will continue to look forward to the assistance of nurse reviewer Dr. Myers. # Generalized weakness. Present on admission, however improved. Multifactorial metabolic derangements and poor baseline function with deconditioning RLS, resting tremors, obesity in addition to C. difficile colitis. probable CVA in the past. -Patient would like to go home with home health -Continue daily PT to increase mobility, given improvement strength patient now appears stable from discharge in place of SNF. # C.diff colitis, PCR+, -Continue vanc po qid for total 14days (started July 26) - Diarrhea is essentially resolved. Certainly may be contributing to weakness as noted above. #Shoulder pain: - PRN Percocet - Ice PRN. # Insulin-dependent diabetes mellitus with peripheral neuropathy. a1c10.6 -Blood sugars mostly in the 100s - 25unit Lantus each morning started on July 26 and then increased to 40 July 29, to 45U on August 05, and subsequently 50U August 06 given persistent hyperglycemia. - Pt additionally RX'd 10U HS, now increased to 15U to address AM hyperglycemia more aggressively, though elevation in BS tending to increase through the day, highest in afternoon/evenings. - Steroid use is likely contributing. -continue high dose correctional Lispro algorithm, -continuing Lyrica 150 mg bid # COPD. Presumed stable - continuing Neb treatments but does have mild wheezing so we will change to 4 times a day scheduled instead of just as needed - Added prednisone due to heavy wheezing july 27 and responding (although she denies) - continue Budesonide, Fluticasone # History of seizures/Restless Leg syndrome, chronic. Presumed stable - continuing Mirapex, Topamax and Lamotrigine # Tremor - Continue Mysoline. Consider Lyrica as the possible cause # ADD - Continue Adderall. Resume home dosing of Vyvanse here. # Anemia of chronic disease # Right knee and left plantar chronic skin ulcers - Wound care consulted to evaluate and treat foot ulcerations, we appreciated their time and expertise. Disposition: Patient's potassium level will need to be corrected and maintained at near normal levels prior to discharge. I suspect the patient will be here another 24 hours. Pain Evaluation: Adequate Pain Control GI Prophylaxis: Proton Pump Inhibitor VTE Prophylaxis: Sub-Q Enoxaparin VTE Mechanical Devices: Venous Foot Pump Resuscitation Status: CPR: Attempt Resuscitation Rosita Mendoza MD Aug 12, 2016 23:20
[2016-08-13] MEDS: Vancomycin 125 mg Oral Capsule PO SCH ×2 (02:48→09:16)
[2016-08-13 04:56] VITALS: BP 105/64; PULSE 85; RESP 20; O2SAT 95
[2016-08-13 06:29] LABS: Magnesium 2.5 mg/dL (1.6-2.6)
--- NOTE | 2016-08-13 06:30 | NUR ---
NOC PT slept well all night with trilogy in place. Denies any pain. Ambulates to BR with walker and 1 person assist. NO complaints. WIll CTM.
[2016-08-13] MEDS: Albuterol-Ipratropium 3 mL Inhalation Solution NEB SCH ×2 (07:40→11:41)
[2016-08-13 07:41] VITALS: PULSE 85; RESP 24; O2SAT 94
[2016-08-13] MEDS: Fluticasone-Salmeterol 500-50 Inhaler INHALATION SCH (07:59)
[2016-08-13] MEDS: Insulin LISPRO High-Dose Scale SUBQ SCH ×2 (07:59→11:58)
[2016-08-13] MEDS: Pantoprazole 40 mg ER24 Tablet PO SCH (08:00)
[2016-08-13] MEDS: Amphetamines (Mixed) 10 mg Tablet PO SCH (08:00)
[2016-08-13] MEDS: predniSONE 20 mg Tablet PO SCH (08:00)
[2016-08-13] MEDS: Potassium Chloride 20 mEq/15 mL 15mL Oral Soln PO SCH (08:02)
[2016-08-13] MEDS: lamoTRIgine 100 mg Tablet PO SCH (08:02)
[2016-08-13] MEDS: Insulin GLARgine 100 Unit/mL Syringe SUBQ SCH (08:04)
[2016-08-13] MEDS: VYVANSE 70 MG PO SCH (09:16)
[2016-08-13 09:45] VITALS: BP 106/88; PULSE 72; RESP 20; O2SAT 95
--- NOTE | 2016-08-13 10:42 | NUR ---
Social Work-readiness for discharge: Data:EMR Reviewed. Pt is on day 21 of hospitalization for pneumonia per H&P. Pt is not medically stable anticipate later today or tomorrow. PT has cleared pt for home with . SW has made referral to [facility] for RN,PT,OT, and DYNAMITE RECLAIMER. DORY spoke with Tala from [facility] today regarding trilogy. Tala states insurance authorization has not yet been obtained, but [facility] states pt can discharge home with trilogy prior to this being authorized and can take machine home. DORY obtained RX from . SW called [facility] who state that because pt is not over 300lbs she will not qualify for barriatric walker. SW updated pt at bedside and she is agreeable to buying one if needed. Pt has normal FWW at home. F2F to be completed by . SW will continue to follow. Assessment:Pt who would benefit from HH. Plan:Pt to discharge home when medically stable via POV. Referral sent to [facility]-RN,PT,OT, and DYNAMITE RECLAIMER. Pt to benefit from Trilogy for home. Pt's insurance will not cover barriatric walker, pt will have to pay for this privately if she wants it. Pt has regular walker for home. F2F to be completed by . DORY will continue to follow. SVETLANA Roldan
--- NOTE | 2016-08-13 11:19 | PCM.DIMED ---
Discharge Instructions Date of Service Aug 13, 2016 Dates of Hospitalization July 23, 2016 at 17:39 Discharge Diagnosis Discharge Diagnosis Pneumonia with sepsis and hypokalemia Diet Discharge Diet: Heart Healthy, Diabetic Activity Discharge Activity: No restrictions (The patient may return to her usual activities gradually as tolerated.) Call your provider Call your provider for: Fever or Chills, Shortness of breath, Bleeding, Chest pain, Vomitting, Excessive diarrhea, Weakness (unilateral) Patient Instructions Follow-up Provider: Kevin Mitchell MD Follow-up with PCP in: 1 week (The patient has an appointment with Dr. Mitchell tomorrow on 08/14/2016.) Mina Mendoza MD Aug 13, 2016 11:18
[2016-08-13] MEDS ORDERED: POTA20LI2 PO (11:30)
[2016-08-13] MEDS ORDERED: BENZ100C8 PO (11:30)
[2016-08-13] MEDS ORDERED: PRED-508 PO (11:30)
[2016-08-13] MEDS ORDERED: MYCC TOPICAL (11:30)
[2016-08-13] MEDS ORDERED: INSU100V7 SUBQ ×2 (11:30)
[2016-08-13 11:41] VITALS: PULSE 82; RESP 24; O2SAT 97
--- NOTE | 2016-08-13 11:42 | NUR ---
Social Work-discharge: Data:EMR Reviewed. Pt is on day 21 of hospitalization for pneumonia per H&P. Pt is medically stable for discharge. PT has cleared pt for home for . RT has been working with [facility] and RT informed SW that pt can take trilogy home with her even without insurance authorization. Pt also has home O2 through [facility]. Pt does not qualify for barriatric fww due to not being over 300 lbs. Pt has been informed of this and has the DME providers list if she chooses to buy one, pt has her own fww at home. SW spoke with Lynda at [facility] who is aware of discharge. [facility] states they can open with pt on 08/15 at home. SW faxed orders and F2F to [facility] for RN,PT,OT, and FLOWER PLANTER. SW updated pt and family and they are agreeable to plan. Pt's to provide transport home today. All updated and agreeable to plan. Assessment:Pt who would benefit from HH. Plan:Pt to discharge home today via POV. F2F and orders RN,PT,OT, and FLOWER PLANTER have been faxed into [facility] at [facility] and they can open with pt on 08/15. Pt does not qualify for barriatric fww, but has fww at home. Pt to take trilogy home with her that RT has set up. All updated and agreeable to plan. SVETLANA Roldan
--- NOTE | 2016-08-13 12:39 | NUR ---
discharge paperwork reviewed, no questions at this time. pt's home medication returned to pt. Belongings are bagged for transport. IV removed and tele discontinued. pt denies pain/distress. pt will return to private home via private car-home health is ordered.
[2016-08-13] MEDS ORDERED: Potassium Chloride 20 mEq/15 mL 15mL Oral Soln PO SCH (20:30)
--- NOTE | 2016-08-14 00:26 | PCM.DC.MED ---
Discharge Summary Date of Service Aug 13, 2016 Dates of Hospitalization Date of Hospital Admission July 23, 2016 at 17:39 Date of Discharge: Aug 13, 2016 Providers: Admitting Physician: Mina Mendoza MD Primary Care Physician: Kevin Mitchell MD Attending Physician: Mina Mendoza MD Diagnosis at Time of Discharge Diagnosis at Time of Discharge Pneumonia with sepsis and hypokalemia Procedures XRay, CTs & MRIs PROCEDURE: X-RAY CHEST, TWO VIEWS ([id number]) INDICATIONS: follow-up for bilateral pulmonary infiltrates TECHNIQUE: 2 views of the chest were acquired. COMPARISON: [facility], CR, XR CHEST 1VW (PORTABLE), 08/03/2016, 8: 31. [facility], CR, XR CHEST 2VW, 07/30/2016, 7:58. FINDINGS: Surgical changes and devices: Lower cervical spine fixation hardware. Epigastric surgical clips. Lungs and pleura: Interval decrease in the right upper and bibasilar air space opacities suggesting resolving pneumonia. Mediastinum: Mediastinal contours are normal. Heart size is normal. Bones and chest wall: No suspicious bony abnormalities. Soft tissues appear unremarkable. IMPRESSION: Resolving pneumonia. Dictated by: Elio Bell [facility] Interpreted: Juany Torres MD on 08/12/2016 at 10: 00 Approved by: Juany Torres M.D. on 08/12/2016 at 11:26 X-RAY CHEST ONE VIEW, PORTABLE 07/23 IMPRESSION: Right basilar opacity suggestive of pneumonia. Aspiration pneumonia cannot be excluded. Recommend interval followup to resolution and exclude presence of underlying mass lesion. Dictated by: Jackie Wing M.D. on 07/23/2016 at 16:42 Approved by: Jackie Wing M.D. on 07/23/2016 at 16:42 --- PROCEDURE: X-RAY ABDOMEN, ONE VIEW ([id number]) INDICATIONS: constipation TECHNIQUE: One view of the abdomen acquired. COMPARISON: None. FINDINGS: Surgical changes and devices: None. Bowel: Bowel gas pattern is normal. Moderate scattered stool. Soft tissues: No suspicious abdominal calcifications. Visualized solid organ contours appear normal in size. Bones: No suspicious bony lesions. IMPRESSION: Moderate scattered stool suggestive of mild constipation. No traction. Dictated by: Jackie Wing M.D. on 07/23/2016 at 16:42 Approved by: Jackie Wing M.D. on 07/23/2016 at 16:43 Cardiac Echo Impression Echocardiogram Report Name: JAILENE LOBATO EStudy Date : 07/24/2016 Height: 6 8 in Hospital Exam Location: [facility] Weight: 2 39 lb Gender: Female BSA: 2.2 m2 : 1960 Age: 55 yrs BP: 102/5 6 mmHg Reason For Study: Possible Cardiomyopathy Performed By: Jia Chavez Referring Physician: MINA MENDOZA Interpretation Summary The left ventricle is normal in size. Left ventricular systolic function is normal without focal wall motion abnormalities. The ejection fraction is estimated to be 60-65%. Assessment of diastolic parameters indicates normal left ventricular diastolic function and normal filling pressures. The right ventricle is normal in size and function. The right ventricular systolic pressure is estimated at 38 mmHg assuming a right atrial pressure of 3 mm Hg. The left atrial size is normal. Borderline right atrial enlargement. There is no significant valvular heart disease. No signficant changes in comparison with all 3 prior echo studies since 2014. Brief History Jailene Lobato is a 55 year old morbidly obese female with a complex medical history including recent CVA x2, chronic respiratory failure secondary to COPD, obstructive asthma, CHF, type II diabetes mellitus, diabetic neuropathy, previous upper extremity DVT s/p PICC line on Warfarin, seizure disorder, GERD and bipolar disorder who presents to [facility] emergency department via EMS complaining of generalized weakness that began 3 days ago. She presents today because of several episodes of bladder incontinence and she has been unable to lift herself from her chair due to weakness. Patient required the assistance of her to ambulate with her walker. Her symptoms initially began after vomiting 3 nights ago and her last BM was approx. 1 month ago. Associated symptoms include lower abdominal pain, "brown" urine, persistent cough and chest pain secondary to cough. She denies any diarrhea, fever, or dysuria. Patient has been taking medication as directed except the Lasix due to decreased in fluid intake. Patient has had 3 recent admissions with extensive workup for COPD exacerbation and CVA x2. Patient was transferred from [facility] to [facility] on 06/18/16 for workup of CVA. She was admitted to the hospitalist service. Hospital Course Jailene Lobato is a 55 year old morbidly obese female with a complex medical history including recent CVA x2, chronic respiratory failure secondary to COPD, obstructive asthma, CHF, type II diabetes mellitus, diabetic neuropathy, previous upper extremity DVT s/p PICC line on Warfarin, seizure disorder, GERD and bipolar disorder who presents to [facility] emergency department via EMS complaining of generalized weakness # Restrictive lung disease secondary to Obesity hypoventilation/KENAN on CPAP/ BiPAP therapy, chronic. Inadequate control - Patient has own CPAP for use, but based on elevated CO2, and overall poor respiratory efforts is likely that this is not sufficient for adequate ventilation. - As noted above pulmonology has recommended patient be considered for trilogy machine now approved by insurance for home use - Respiratory therapy is consulted and will install trilogy machine for use. Patient requires nocturnal and PRN daytime volume ventilation. BiPAP has been insufficient for optimal control due to severity of Obesity hyperventilation syndrome, which has been supported by the ABG and venous CO2 readings demonstrating CO2 retention, in addition to the opinion of consulting [place] [facility], Dr Myers. # Hypokalemia, present at the time of admission. Active but Improved on high- dose oral replacement therapy - Likely multiple diuretic medications are contributing to this now refractory condition. Therefore, we have discontinued hydrochlorothiazide. We will also have decreased Lasix 80 mg a day. - Continue spironolactone, we have increased dose to 50 mg by mouth daily. As potassium continues to rise will decrease dose back to 25 mg by mouth daily - We have given increased oral and IV potassium. However with discontinuing hydrochlorothiazide and reducing Lasix and adding Aldactone potassium requirements are markedly reduced. Will decrease potassium replacement to 20 mg by mouth once a day - Magnesium is wnl, diarrhea, previously suspected as source is improving, nearly resolved. - Check labs frequently as an outpatient as mentioned above multiple variables have changed in the management of the patient's potassium, she will continue to need very close monitoring for the next couple of days. # Healthcare associated pneumonia. Present on admission, met criteria for HCAP hospitalization within the last 90 days. Risk factors for MRSA and Pseudomonas. - IV Vancomycin July 23- then DC'd with negative MRSA swab - IV Levaquin followed by oral, total of 8 days, DC'd by Dr Yen - Chest x-ray on 07/30 worse, now multifocal infiltrates - Currently on oxygen at 2-5-3 L per nasal cannula,her usual at home is 3 L - Swallowing evaluation by speech therapy on July 23 did not show signs of aspiration, there was some concern mention for silent aspiration given radiologic findings of right-sided infiltrates. - Dr. Yen's consult and follow up today much appreciated -- he's not sure she had bacterial pneumonia but regardless doesn't need further antibiotics for this -- repeat procalcitonin is 0.13, down from 0.5 -- urine Legionella and pneumococcal antigens he ordered yesterday were negative -- ordered Serum cryptococcal antigen which is pending --BNP slightly above normal so less likely that CHF is causing multifocal infiltrates -- ordered a CT scan noncontrast of the chest which showed unexplained infiltrates. Therefore Pulmonary consult was obtained -- ordered some additional basic screening labs for vasculitis and/or autoimmune processes including GREG, rheumatoid factor, an JESSIE level for sarcoid. GREG negatrive, RH positive to date. - Pulmonology, Dr. Myers was consulted in addition further evaluation of lung findings. He concurs etiologies other than infectious may be the cause of patient's current findings. And is also waiting results of serologic studies to evaluate for possible autoimmune process. No further intervention or studies planned at this time. Serologic studies looking for autoimmune causes so far have been unrevealing. - Modified barium swallow was ordered demonstrating no evidence of silent aspiration/reflux aspiration, which would be consistent with radiologic findings to date. - Patient continues on supplemental oxygen - Ideally she will benefit from Trilogy breathing machine for submental support , this is pending insurance authorization I will make from much safer discharge if able to be achieved as patient appears to be inadequately ventilated with current CPAP machine. - We will continue to monitor appreciate specialist consultation very much. ID talent acquisition consultant signed off given patient demonstrate no evidence of acute infection, will continue to look forward to the assistance of tax compliance representative Dr. Myers. # Generalized weakness. Present on admission, however improved. Multifactorial metabolic derangements and poor baseline function with deconditioning RLS, resting tremors, obesity in addition to C. difficile colitis. probable CVA in the past. -Patient would like to go home with home health -Continue daily PT to increase mobility, given improvement strength patient now appears stable from discharge in place of SNF. # C.diff colitis, PCR+, -Continue vanc po qid for total 14days (started July 26) - Diarrhea is essentially resolved. Certainly may be contributing to weakness as noted above. #Shoulder pain: - PRN Percocet - Ice PRN. # Insulin-dependent diabetes mellitus with peripheral neuropathy. a1c10.6 -Blood sugars mostly in the 100s - 25unit Lantus each morning started on July 26 and then increased to 40 July 29, to 45U on August 05, and subsequently 50U August 06 given persistent hyperglycemia. - Pt additionally RX'd 10U HS, now increased to 15U to address AM hyperglycemia more aggressively, though elevation in BS tending to increase through the day, highest in afternoon/evenings. - Steroid use is likely contributing. -continue high dose correctional Lispro algorithm, -continuing Lyrica 150 mg bid # COPD. Presumed stable - continuing Neb treatments but does have mild wheezing so we will change to 4 times a day scheduled instead of just as needed - Added prednisone due to heavy wheezing july 27 and responding (although she denies) - continue Budesonide, Fluticasone # History of seizures/Restless Leg syndrome, chronic. Presumed stable - continuing Mirapex, Topamax and Lamotrigine # Tremor - Continue Mysoline. Consider Lyrica as the possible cause # ADD - Continue Adderall. Resume home dosing of Vyvanse here. # Anemia of chronic disease # Right knee and left plantar chronic skin ulcers - Wound care consulted to evaluate and treat foot ulcerations, we appreciated their time and expertise. Disposition: Patient's potassium level appears to have stabilized and she will not be in any imminent danger of hyper or hypokalemia at the time of discharge. Therefore we will discharge home today to follow up with Dr. Reggie Dodson her primary care physician in a.m. Dr. Dodson may continue to closely monitor and manage her electrolytes, including potassium and magnesium, and her medication regimen. Exam Vital Signs (Last) Date Time Temp Pulse Resp B/P Pulse Ox O2 Delivery O2 Flow Rate FiO2 6/13/17 11:41 82 24 97 Nasal Cannula 2.50 08/13/16 09:45 36.7 106/88 95 Exam General: Patient is lying comfortably supine in bed in no apparent distress. HEENT: Head is atraumatic and normocephalic. Eyes: Pupils are equally round and reactive to light and accommodation. Extraocular muscles are intact. Sclera are white, anicteric. Subconjunctival mucosa is pink. Ears and nose are unremarkable. Oropharynx: There is no mucosal lesions, there is no thrush, there is no pharyngitis. Neck: Is supple, there are no nodes, or masses or tenderness. Chest: Breath sounds are clear. Heart: Rate, rhythm is regular. There is no new murmur, rub or gallop. Abdomen: Good bowel sounds are present. Abdomen is obese, soft, nontender, no organomegaly or masses were appreciated. Extremities: Are symmetrical and well perfused. There is no edema, there is no cellulitis, no rash. Neurologic: Patient has an essential tremor of the right upper extremity at rest which has improved significantly since admission. Otherwise, there are no focal neurological deficits. Cranial nerves II through XII are intact. There are no sensory or motor deficits. The patient has generalized weakness. The patient strength has improved significantly since admission and she is able to ambulate with a walker with assistance now. Lower extremities are quite restless. Psychiatric: Patients mood is calm and she shows no sign of agitation. Genital: Deferred Rectal: Deferred Test 07/23/16 14:50 07/24/16 05:40 07/25/16 05:45 07/25/16 10:19 Hold Purple Top Tube Received (Received) Hold Blue Top Tube Received (Received) Urine Color Yellow (YELLOW) Urine Appearance Clear (CLEAR,HAZY) Urine pH 6.5 (5.0-8.0) Urine Specific [place] 1.010 (1.003-1.035) Urine Protein 30mg/dL (NEG,TRACE) Urine Glucose (UA) 500mg/dL (NEGATIVE) Urine Ketones Tracemg/dL (NEGATIVE) Urine Occult Blood Negative (NEGATIVE) Urine Nitrite Negative (NEGATIVE) Urine Bilirubin Negative (NEGATIVE) Urine Urobilinogen Normalmg/dL (NORMAL) Urine Leukocyte Esterase Negative (NEGATIVE) Urine RBC 0-2/hpf (0-2) Urine WBC 0-5/hpf (0-5) Urine Epithelial Cells Moderate/hpf (NONE-MOD) Urine Crystals None seen (NONE SEEN) Urine Bacteria None/hpf (NONE-FEW) Urine Hyaline Casts None/lpf (NONE) Urine Granular Casts None seen (NONE SEEN) Urine Waxy Casts None seen (NONE SEEN) Urine Red Blood Cell Casts None seen (NONE SEEN) Urine White Blood Cell Casts None seen (NONE SEEN) Urine Mucus None seen (None Seen) Urine Trichomonas None seen (NONE SEEN) Urine Yeast None (NONE SEEN) Urinalysis Comment None Urine Culture Reflexed Not indicated Troponin T < 0.010ug/L (0.0-0.011) Hold [place] Top Tube Received (Received) Hold [place] Top Tube Received (Received) Lactic Acid Level 1.0mmol/L (0.4-2.0) Thyroid Stimulating Hormone (TSH) 2.350uIU/mL (0.450-4.500) Hemoglobin A1c 10.6% (4.8-5.6) Vancomycin Level Trough 8.5mcg/mL Test 07/31/16 01:33 07/31/16 05:29 07/31/16 09:39 07/31/16 22:36 Urine Legionella pneumophilia Ag Negative (Negative) Cryptococcus Antigen Negative (Negative) Rheumatoid Factor 14.0IU/mL (0.0-13.9) Anti-Nuclear Antibody Screen Negative (.) LAKSHMI-1 Antibody SM Antibody [place] Antibody Scl-70 (Scleroderma) Antibody Anti-Double Strand DNA Antibody Anti-Ribosomal Antibody Hold Urine Received (Received) Test 08/01/16 05:40 08/07/16 05:50 08/09/16 05:40 08/12/16 05:10 Myeloperoxidase <9.0U/mL (0.0-9.0) Angiotensin Converting Enzyme 32U/L (14-82) Immunoglobulin E 14IU/mL (0-100) Cytoplasmic ANCA (c-ANCA) Antibody <1:20titer (Neg:<1:20) Proteinase 3 (PR3) Antibodies <3.5U/mL (0.0-3.5) Atypical p-ANCA <1:20titer (Neg:<1:20) Perinuclear ANCA (p-ANCA) Antibody <1:20titer (Neg:<1:20) Saccharomonospora viridis Antibody Negative (Negative) Thermoactinomyces candidus IgG Ab Negative (Negative) Thermoactinomyces sacchari Antibody Negative (Negative) Thermoactinomyces vulgaris #1 Ab Negative (Negative) Aspergillus flavus Antibody Negative (Negative) Aspergillus fumigatus #1 Antibody Negative (Negative) Aspergillus niger Antibody Negative (Negative) Aureobasidium pullulans Antibody Negative (Negative) Micropolyspora faeni Antibody Negative (Negative) Anza Serum Precipitating Abs Negative (Negative) Pro-B-Type Natriuretic Peptide 9.39pg/mL (0-249) White Blood Count 5.9th/mm3 (3.8-10.1) Red Blood Count 3.79mil/mm3 (3.90-5.20) Hemoglobin 11.1g/dL (12.0-15.6) Hematocrit 35.6% (35.0-46.0) Mean Corpuscular Volume 93.9fL (81-100) Mean Corpuscular Hemoglobin 29.3pg (27.0-35.0) Mean Corpuscular Hemoglobin Concent 31.2% (32.0-37.0) Red Cell Distribution Width 14.7% (12.3-15.4) Platelet Count 305bil/L (150-400) Neutrophils (%) (Auto) 66.3% (40-74) Lymphocytes (%) (Auto) 22.6% (14-46) Monocytes (%) (Auto) 5.8% (4-12) Eosinophils (%) (Auto) 4.2% (0-5) Basophils (%) (Auto) 0.3% (0-3) Erythrocyte Sedimentation Rate 22mm/hr (0-40) Total Bilirubin 0.2mg/dL (0.0-1.2) Aspartate Amino Transf (AST/SGOT) 17U/L (0-50) Alanine Aminotransferase (ALT/SGPT) 19U/L (0-32) Alkaline Phosphatase 50U/L (25-150) C-Reactive Protein 0.5mg/dL (0.0-0.5) Total Protein 5.8g/dL (6.4-8.4) Albumin 3.8g/dL (3.4-5.0) Procalcitonin 0.09ng/mL (0.00-0.08) Test 08/13/16 05:30 Sodium Level 137mEq/L (134-144) Potassium Level 3.8mEq/L (3.5-5.2) Chloride Level 99mEq/L (97-108) Carbon Dioxide Level 26mmol/L (18-29) Blood Urea Nitrogen 22mg/dL (6-24) Creatinine 0.86mg/dL (0.57-1.00) Estimat Glomerular Filtration Rate 98mL/min (>59) Glucose Level 244mg/dL (60-99) Calcium Level 9.0mg/dL (8.5-10.1) Magnesium Level 2.5mg/dL (1.6-2.6) Microbiology Results Blood cultures are negative at 24 hours Sputum culture is pending Discharge Medications Discharge Medications Aspirin (Aspirin) 325 Mg Tablet 325 MG PO DAILY Prescribed by: MARIA ELENA VILLA DO Budesonide/Formoterol 160-4.5 mcg Inh (Symbicort 160-4.5 mcg Inh) 120 Puff Inhaler 2 PUFF INHALATION BID (Reported) Dextroamphetamine/Amphetamine (Amphetamine Mixed Salts) 30 Mg Tablet 30 MG PO BID (Reported) Duloxetine (Duloxetine) 60 Mg Capsule.dr 60 MG PO DAILY (Reported) Fenofibrate Nanocrystallized (Fenofibrate) 48 Mg Tablet 48 MG PO DAILY (Reported ) Fluoxetine (Fluoxetine) 40 Mg Capsule 40 MG PO DAILY (Reported) Furosemide (Furosemide) 80 Mg Tab 120 MG PO AM (Reported) Insulin Glargine (Lantus U100 Insulin Vial) 100 Unit/Ml Vial 50 UNIT SUBQ DAILY Prescribed by: RENETTA MENDOZA MD Insulin Glargine (Lantus U100 Insulin Vial) 100 Unit/Ml Vial 15 UNIT SUBQ HS Prescribed by: RENETTA MENDOZA MD Lamotrigine (Lamotrigine) 200 Mg Tablet 400 MG PO BID (Reported) Lisdexamfetamine Dimesylate (Vyvanse) 70 Mg Capsule 70 MG PO QAM (Reported) Loratadine (Claritin) 10 Mg Capsule 10 MG PO QAM (Reported) Multivit with Calcium,Iron,Min (Therapeutic M) 1 Each Tablet 1 EACH PO QAM ( Reported) Nystatin (Nystatin) 60 Applic/15 Gm Cream 1 APPLIC TOPICAL BID Prescribed by: RENETTA MENDOZA MD Pantoprazole DR (Pantoprazole DR) 40 Mg Tablet.dr 40 MG PO BID (Reported) Potassium Chloride (Potassium Chloride) 20 Meq/15 Ml Liquid 20 MEQ PO BID Prescribed by: RENETTA MENDOZA MD Prednisone (Deltasone) 20 Mg Tablet 20 MG PO DAILY Prescribed by: RENETTA MENDOZA MD Pregabalin (Lyrica) 75 Mg Capsule 150 MG PO BID (Reported) Primidone (Primidone) 50 Mg Tablet 150 MG PO HS (Reported) Ropinirole (Ropinirole) 4 Mg Tablet 4 MG PO BID (Reported) Simvastatin (Simvastatin) 80 Mg Tablet 80 MG PO HS (Reported) Tiotropium [place] (Spiriva) 18 Mcg Cap.w.dev 18 MCG IH HS (Reported) Topiramate (Topamax) 50 Mg Tablet 50 MG PO BID (Reported) As needed Albuterol HFA (Proair HFA) 8.5 Gm Hfa.aer.ad 2 PUFFS IH Q4H PRN PRN For Shortness of Breath (Reported) Albuterol Neb Soln (Albuterol Neb Soln) 2.5 Mg/3 Ml Vial.neb 2.5 MG IH DAILY PRN PRN For Shortness of Breath (Reported) Azelastine HCl (Azelastine HCl) 137 Mcg/0.137 Ml [place].pump 2 SPRAY NASAL BID PRN PRN prn (Reported) Benzonatate (Benzonatate) 100 Mg Capsule 100 MG PO Q8H PRN PRN For Cough Prescribed by: RENETTA MENDOZA MD Fluticasone Propionate (Fluticasone Propionate Nasal) 16 Gm [place].susp 2 SPRAY NS BID PRN PRN allergy symptoms (Reported) Insulin Lispro (HumaLOG U100 Insulin Pen) 100 Unit/1 Ml Insuln.pen 5-20 UNIT SUBQ TIDWM PRN PRN sliding scale (Reported) sliding scale Insulin Regular, Human (HUMulin-R U-500 Insulin Vial) 500 Unit/1 Ml Vial Unknown Dose SQ TIDWM PRN PRN sliding scale (Reported) BREAKFAST Ipratropium/Albuterol Sulfate (Iprat-Albut 0.5-3(2.5) mg/3 mL Inhalant Soln) 3 Ml Ampul.neb 3 ML IH TID PRN PRN For Shortness of Breath (Reported) Followup Plan Disposition: Patient is discharged home. With her . Discharge Diet: Heart Healthy, Diabetic Discharge Activity: No restrictions (The patient may return to her usual activities gradually as tolerated.) Follow-up Provider: Kevin Mitchell MD Follow-up with PCP in: 1 week (The patient has an appointment with Dr. Mitchell tomorrow on 08/14/2016.) Time spent Time spent on discharging this patient was greater than 35 minutes, over half of which was involved in counseling and coordination of care. Mina Mendoza MD Aug 14, 2016 00:26
== END 2016-08-13 13:07 | disposition home health service (06) | DRG 190 ==
LOC: LAB 14:44 → MPC 17:39
PROVIDERS: ADMIT Internal Medicine Infectious Disease; ATTEND Hospitalist
PROC: 4A033R1 Measurement of Arterial Saturation, Peripheral, Percutaneous Approach (ICD-10-PCS; principal; 2016-08-02)
DX: J44.0 Chronic obstructive pulmonary disease with (acute) lower respiratory infection (principal); J18.9 Pneumonia, unspecified organism; N39.0 Urinary tract infection, site not specified; N17.9 Acute kidney failure, unspecified; E66.2 Morbid (severe) obesity with alveolar hypoventilation; A04.7 Enterocolitis due to Clostridium difficile; I69.354 Hemiplegia and hemiparesis following cerebral infarction affecting left non-dominant side; J96.12 Chronic respiratory failure with hypercapnia; E87.6 Hypokalemia; Z79.4 Long term (current) use of insulin; Z86.718 Personal history of other venous thrombosis and embolism; Z79.01 Long term (current) use of anticoagulants; E11.42 Type 2 diabetes mellitus with diabetic polyneuropathy; G25.81 Restless legs syndrome; E11.65 Type 2 diabetes mellitus with hyperglycemia; Z68.36 Body mass index [BMI] 36.0-36.9, adult; G40.909 Epilepsy, unspecified, not intractable, without status epilepticus; E11.621 Type 2 diabetes mellitus with foot ulcer; L97.529 Non-pressure chronic ulcer of other part of left foot with unspecified severity

== ENCOUNTER 2016-10-02 20:41 | Inpatient (IN) | payer OTHER, MEDICAID ==
[~2016-10-02] VITALS: Ht 172.7 cm; Wt 109.1 kg
[~2016-10-02 20:41] MED LIST changes: -AMPH30TA3 PO; -ASCO-294 PO; +AZEL137S11 NASAL; +BENZ100C8 PO; -BENZ200C44 PO; -CALC600T20 PO; -CHRO200C PO; +DEXT30TA12 PO; -DULO60CA42 PO; +DULO60CA61 PO; +FENO48TA4 PO; +FLUO40CA PO; -FLUO40CA12 PO; -GUAI120L57 PO; -HYDR50TA3 PO; +INSU100V7 SUBQ; -INSU500V SUBQ; -LIP40 PO; -MYCC TOP; +MYCC TOPICAL; -NAPH15DR63 BOTH_EYES; -OMEP20TA24 PO; -OXYM30SP18 NS; +PANT40TA3 PO; +POTA20LI2 PO; -POTA20PA3 PO; -PRE20 PO; +PRED-508 PO; -PROP1DRO BOTH_EYES; +TOPI50TA32 PO; -TOPI50TA88 PO; -ZINC50TA4 PO
[2016-10-02] MEDS ORDERED: Albuterol 2.5 mg/3 mL Inhalation Solution NEB ONE ×4 (20:43→21:45)
[2016-10-02] MEDS ORDERED: Albuterol-Ipratropium 3 mL Inhalation Solution ONE (20:43)
[2016-10-02 20:45] VITALS: BP 137/73; PULSE 95; RESP 30; O2SAT 98
[2016-10-02] MEDS ORDERED: Albuterol-Ipratropium 3 mL Inhalation Solution NEB ONE (21:10)
--- NOTE | 2016-10-02 21:13 | ED.REPORT ---
HPI-Dyspnea / Wheezing Date of Service Oct 02, 2016 ED Provider: Tip Stearns MD Pt is a 56 y/o female w/ a hx of asthma, COPD, CHF, IDDM, recent pneumonia with sepsis, CVA, presenting to the ED c/o worsening SOB onset 1 week ago. She c/o associated cough and wheezing. The patient was admitted to [facility] due to pneumonia and sepsis from July 23-August 14 and feels like her symptoms today are similar to that time. Nursing Notes Stated Complaint: POSS PNEUNOMINA Chief Complaint: Respiratory Distress Nursing Notes Reviewed: Yes Allergies: Coded Allergies: Contrast Media (Verified Allergy, Severe, Anaphylaxis, 10/02/16) Sulfa (Sulfonamide Antibiotics) (Verified Allergy, Severe, Rash,Itching, SOB, 10/02/16) iodine (Verified Allergy, Severe, UNSPEC, 10/02/16) topical iodine causes rash ketorolac (Verified Allergy, Severe, 10/02/16) paranoia per pt meperidine (Verified Allergy, Severe, UNSPEC, 07/23/16) paranoia and asthma povidone (Verified Allergy, Severe, 07/23/16) cefazolin sodium (Verified Allergy, Intermediate, Rash,Itching,SOB, ) cefazolin (Verified Allergy, Unknown, 10/02/16) shellfish derived (Verified Allergy, Unknown, 07/23/16) asthma, rash from food tromethamine (Verified Allergy, Unknown, 07/23/16) Uncoded Allergies: FRAGRANCES (Allergy, Unknown, 04/17/06) SEAFOOD (Allergy, Unknown, 07/10/03) Scheduled Aripiprazole (Abilify) 10 Mg Tablet 10 MG PO HS Aspirin (Aspirin) 325 Mg Tablet 325 MG PO DAILY Budesonide/Formoterol 160-4.5 mcg Inh (Symbicort 160-4.5 mcg Inh) 120 Puff Inhaler 2 PUFF INHALATION BID Dextroamphetamine/Amphetamine (Amphetamine Mixed Salts) 30 Mg Tablet 30 MG PO BID Duloxetine (Duloxetine) 60 Mg Capsule.dr 60 MG PO DAILY Fenofibrate Nanocrystallized (Fenofibrate) 48 Mg Tablet 48 MG PO DAILY Fluoxetine (Fluoxetine) 10 Mg Tablet 35 MG PO DAILY Furosemide (Furosemide) 80 Mg Tab 120 MG PO AM Lisdexamfetamine Dimesylate (Vyvanse) 70 Mg Capsule 70 MG PO QAM Loratadine (Claritin) 10 Mg Capsule 10 MG PO QAM Multivit with Calcium,Iron,Min (Therapeutic M) 1 Each Tablet 1 EACH PO QAM Nystatin (Nystatin) 60 Applic/15 Gm Cream 1 APPLIC TOPICAL BID Potassium Chloride (Potassium Chloride) 20 Meq/15 Ml Liquid 20 MEQ PO BID Simvastatin (Simvastatin) 80 Mg Tablet 80 MG PO HS Tiotropium [place] (Spiriva) 18 Mcg Cap.w.dev 18 MCG IH HS Topiramate (Topamax) 50 Mg Tablet 50 MG PO BID Scheduled PRN Albuterol HFA (Proair HFA) 8.5 Gm Hfa.aer.ad 2 PUFFS IH Q4H PRN PRN For Shortness of Breath Albuterol Neb Soln (Albuterol Neb Soln) 2.5 Mg/3 Ml Vial.neb 2.5 MG IH DAILY PRN PRN For Shortness of Breath Azelastine HCl (Azelastine HCl) 137 Mcg/0.137 Ml [place].pump 2 SPRAY NASAL BID PRN PRN prn Fluticasone Propionate (Fluticasone Propionate Nasal) 16 Gm [place].susp 2 SPRAY NS BID PRN PRN allergy symptoms Insulin Regular, Human (HUMulin-R U-500 Insulin Vial) 500 Unit/1 Ml Vial Unknown Dose SQ TIDWM PRN PRN sliding scale BREAKFAST Ipratropium/Albuterol Sulfate (Iprat-Albut 0.5-3(2.5) mg/3 mL Inhalant Soln) 3 Ml Ampul.neb 3 ML IH TID PRN PRN For Shortness of Breath General Time Seen by MD: 21:09 Chief Complaint Shortness of breath Hx Obtained From: Patient Arrived By: Walk-in Sudden in Onset?: No Onset Occurred: 1 week ago Symptom Duration: Since onset Recent Healthcare: Recent doctor visit, Recent hospitalization, Recent testing , Previous diagnosis, Prior workup Similar Sx Previous: Yes Past Medical History Past Medical History Notes: PCP: Dr. Esteban Mitchell SEVERE CONTRAST ALLERGY Past Medical History 1. Upper extremity DVT secondary to PICC line, treated with warfarin 2. Restless leg syndrome 3. Diabetic neuropathy 4. Insulin dependent diabetes mellitus 5. Asthma 6. COPD 7. CHF 8. GERD 9. Bilateral drop foot 10. osteoarthritis 11. Osteomyelitis 12. binasal hemianopsia 13. sleep apnea 14. Admit sepsis from diabetic foot June 2014 15. bipolar disorder 16. Review of seizure disorder 17. Hyperlipidemia 18. CVA Past Surgical History L4-S1 laminectomy in 1994 Right shoulder acromioplasty in 1984 Left shoulder acromioplasty in 1990, 1993 Left knee arthroscopy in 1997 Jayce fundoplication in 1993 C5-7 decompression, C3-T2 PSIS in July [address] Taylor at [facility] Family History Myocardial infarction Diabetes Smoking History Never Smoker Social History Alcohol Use: "Social" Drug Use: Denies drug use Other Social History: , Local resident Ambulatory Status Independent Review of Systems Respiratory: Reports: Non-productive cough, Shortness of breath, Wheezing Complete sys rev & neg: except as marked. Physical Exam Initial Vital Signs Vital Signs (First) Date Time Temp Pulse Resp B/P Pulse Ox O2 Delivery O2 Flow Rate FiO2 10/02/16 20:45 36.6 95 30 137/73 98 Nasal Cannula 2 Initial VS: Reviewed, Vital signs abnormal Head / Eyes: Atraumatic, Normocephalic ENT: Mucous membranes moist, Conjunctiva normal, No scleral icterus Abdomen / GI: Soft, Non-tender Skin: Warm, Dry, No cyanosis Neurologic: Alert, Oriented, Nonfocal Psychiatric: Mood/affect normal, Behavior normal, Normal thought content General/Constitutional: Awake, Alert, Cooperative, Not toxic appearing Distress / Hydration: Positive: Distress moderate (secondary to SOB) Appearance / Presentation: Positive: Ill appearing/not toxic, Obese Neck: Atraumatic, Supple, No meningismus, Full range of motion Respiratory / Chest: No stridor Resp Distress / Stridor: Positive: Resp distress moderate Rhonchi, rales, and inspiratory/expiratory wheezes diffusely. No focal changes Cardiovascular: Regular rhythm, Heart sounds NL Heart Rate / Rhythm: Positive: Tachycardia Interpretation & Diagnostics Lab Results Interpretation Result Diagram: 10/02/16211910/02/162119 Test 10/02/16 21:20 White Blood Count 11.4th/mm3 (3.8-10.1) Red Blood Count 4.12mil/mm3 (3.90-5.20) Hemoglobin 12.3g/dL (12.0-15.6) Hematocrit 38.1% (35.0-46.0) Mean Corpuscular Volume 92.5fL (81-100) Mean Corpuscular Hemoglobin 29.9pg (27.0-35.0) Mean Corpuscular Hemoglobin Concent 32.3% (32.0-37.0) Red Cell Distribution Width 15.7% (12.3-15.4) Platelet Count 343bil/L (150-400) Neutrophils (%) (Auto) 69.1% (40-74) Lymphocytes (%) (Auto) 17.8% (14-46) Monocytes (%) (Auto) 11.1% (4-12) Eosinophils (%) (Auto) 1.4% (0-5) Basophils (%) (Auto) 0.2% (0-3) Sodium Level 140mEq/L (134-144) Potassium Level 3.6mEq/L (3.5-5.2) Chloride Level 96mEq/L (97-108) Carbon Dioxide Level 27mmol/L (18-29) Blood Urea Nitrogen 19mg/dL (6-24) Creatinine 0.90mg/dL (0.57-1.00) Estimat Glomerular Filtration Rate 93mL/min (>59) Glucose Level 138mg/dL (60-99) Lactic Acid Level 1.8mmol/L (0.4-2.0) Calcium Level 9.4mg/dL (8.5-10.1) Total Bilirubin 0.3mg/dL (0.0-1.2) Aspartate Amino Transf (AST/SGOT) 15U/L (0-50) Alanine Aminotransferase (ALT/SGPT) 20U/L (0-32) Alkaline Phosphatase 98U/L (25-150) Troponin T 0.010ug/L (0.0-0.011) Pro-B-Type Natriuretic Peptide 55.10pg/mL (0-249) Total Protein 7.6g/dL (6.4-8.4) Albumin 4.3g/dL (3.4-5.0) Lab values outside NL range: no clinical significance. Lab Results Interpretation: Mildly elevated white blood count ECG Interpretation ECG Interpretation: Sinus tachycardia rate 108 Time: 21:36 Interpreted by: ED physician Normal ECG Interpretation: No acute ischemic changes ABG Interpretation ABG Interpretation: pH ____7.444 - 7.350 7.450 pCO2 ___42.8__ -mmHg 35.0 45.0 pO2 ___62.2__ -mmHg 69.0 116 HCO3- ___28.9__ -mmol/L 22.0 26.0 ABE ____4.7__ -mmol/L -2.0 2.0 tHb ___11.5__ -g/dL O2Hb ___89.7__ -% COHb ____1.5__ -% MetHb ____0.9__ -% sO2 ___91.9__ -% FIO2 ___32.0__ -% Exam Performed by: Allied health pract Exam Interpreted by: ED physician Indication: Respiratory distress X-Ray Chest Interpretation Chest Xray Interpretation: IMPRESSION: Persistent bibasilar pulmonary opacities right greater the left minimally improved since the previous study. Recommend radiographic followup to resolution. A chest CT with contrast may be needed to exclude underlying malignancy if this finding continues. Dictated by: Branden Hill M.D. on 10/02/2016 at 21:28 Approved by: Branden Hill M.D. on 10/02/2016 at 21:34 View: Portable, 1 view Interpretation / Wet Read by: Interpret - Radiologist Re-Eval/Medical Decision Med Decision/Clinical Course 56-year-old female presents with respiratory distress. She was admitted 2 months ago for pneumonia with exacerbation of her COPD. She presents now with either persistent or recurrent pneumonia on chest x-ray. She is in marked respiratory distress and required multiple nebulizer treatments, magnesium, and Cipro Medrol. She was started on hospital-acquired pneumonia antibiotics after cultures. She will be admitted to the hospitalist service for further evaluation and treatment. Source of Hx: Old records Re-Evaluation/Progress #1: Time of Eval: 21:21 Re-Evaluation/Progress Note: Pt rechecked. Informed pt of need for admission. Pt understands and agrees with plan for admission. All questions addressed. Re-Evaluation/Progress #2: Time of Eval: 23:14 Re-Evaluation/Progress Note: Pt rechecked. Breathing improved but still in mild distress. 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 I, Dr. Stearns personally performed the history, physical exam and medical decision-making; I reviewed and confirmed the accuracy of the information in the transcribed note. copies to: Kevin Mitchell MD, Tip Lucas MD Oct 02, 2016 21:13 JOSÉ LUIS ARREOLA Oct 02, 2016 21:19
[2016-10-02] MEDS ORDERED: 0.9% Sodium Chloride 1,000 ML IV ONE (21:16)
[2016-10-02 21:20] VITALS: PULSE 108; RESP 22; O2SAT 97
[2016-10-02] MEDS ORDERED: MethylprednisoLONE Sodium Succinate 62.5 mg/mL 2 mL Inj IVPUSH ONE (21:20)
[2016-10-02] MEDS ORDERED: levoFLOXacin Inj 750 MG in IV Premix 1 EACH IV ONE (21:20)
[2016-10-02] MEDS ORDERED: Piperacillin-Tazo 3.375 Gm Inj 3.375 GM in Dextrose 5% Minibag Plus 50 ML IV ONE (21:20)
[2016-10-02] MEDS ORDERED: Vancomycin Dose per Pharmacist XX ONE (21:20)
[2016-10-02 21:25] LABS: BASOPHILS % (AUTO) 0.2 % (0-3); EOSINOPHILS % (AUTO) 1.4 % (0-5); MONOCYTES % (AUTO) 11.1 % (4-12); Mean Corpuscular Hemoglobin 29.9 pg (27.0-35.0); Mean Corpuscular Volume 92.5 fL (81-100); NEUTROPHILS % (AUTO) 69.1 % (40-74); Platelet Count 343 bil/L (150-400)
[2016-10-02] MEDS ORDERED: Vancomycin Inj 1,750 MG in 0.9% Sodium Chloride 500 ML IV ONE (21:30)
--- NOTE | 2016-10-02 21:35 | DRSVH ---
PROCEDURE: X-RAY CHEST ONE VIEW, PORTABLE ([id number]) INDICATIONS: shortness of breath, hx of infiltrates TECHNIQUE: One view of the chest was acquired. COMPARISON: [facility], CR, XR CHEST 1VW (PORTABLE), 08/03/2016, 8:31. [facility], CR, XR CHEST 1VW (PORTABLE), 07/23/2016, 16:15. Chest CT without contrast from 07/31/16. FINDINGS: Surgical changes and devices: None. Lungs and pleura: Improving still present right basilar pulmonary. Smaller less distinct further righ t basilar and left basilar pulmonary opacities. Mediastinum: Mediastinal contours appear normal. Heart size is normal. Bones and chest wall: GE junction postsurgical clips. Cervicothoracic spine postoperative change. IMPRESSION: Persistent bibasilar pulmonary opacities right greater the left minimally improved since the previous study. Recommend radiographic followup to resolution. A chest CT with contrast may be ne eded to exclude underlying malignancy if this finding continues. Dictated by: Branden Hill M.D. on 10/02/2016 at 21:28 Approved by: Branden Hill M.D. on 10/02/2016 at 21:34
[2016-10-02] MEDS ORDERED: Magnesium Sulf 2 Gm/50mL Water 2 GM in IV Premix 1 EACH IV ONE (21:45)
[2016-10-02 21:54] LABS: TROPONIN T 0.01 ug/L (0.0-0.011)
--- NOTE | 2016-10-02 22:00 | ABG ---
DateTimeAnalyzed 21:54:00 -_ pH ____7.444 - 7.350 7.450 pCO2 ___42.8__ -mmHg 35.0 45.0 pO2 ___62.2__ -mmHg 69.0 116 HCO3- ___28.9__ -mmol/L 22.0 26.0 ABE ____4.7__ -mmol/L -2.0 2.0 tHb ___11.5__ -g/dL O2Hb ___89.7__ -% COHb ____1.5__ -% MetHb ____0.9__ -% sO2 ___91.9__ -% FIO2 ___32.0__ -% Drawn By MM - Date/Time Notified____ 22:00:00 -_ Spontaneous_RR ___20.0__ -b/min Liter_Flow ____3.0__ -L/min Oxygen Device 1 __CANNULA - Notified By MM - Notified Whom DR LEIBRAND - B 757 -mmHg tO2 ___14.6__ -Vol% Chivo test _Positive -
[2016-10-02] MEDS ORDERED: ARIP10TA14 PO (22:42)
[2016-10-02] MEDS ORDERED: FLUO10TA PO (22:42)
[2016-10-02 23:47] VITALS: BP 137/57; PULSE 97; RESP 17; O2SAT 95
[2016-10-03] VITALS (11 sets, daily range): BP systolic 118–146; BP diastolic 69–89; PULSE 85–102; RESP 16–24; O2SAT 92–98
[2016-10-03] MEDS ORDERED: HYDROmorphone 0.5 mg/0.5 mL iSecure Syringe IVPUSH ONE (00:15)
[2016-10-03] MEDS ORDERED: Alum-Mag Hydrox-Simeth 30 mL Suspension PO PRN ×2 (00:35→00:40)
[2016-10-03] MEDS ORDERED: Arformoterol 15 mCg/2 mL Inhalation Solution NEB SCH (02:05)
[2016-10-03] MEDS: Budesonide 0.5 mg/2 mL Inhalation Solution NEB SCH ×2 (02:05→08:24)
--- NOTE | 2016-10-03 02:53 | NUR ---
admit Pt arrived to floor with all belongings on stretcher, walked from stretcher to bed. Pt was alert and oriented x 4, cooperative, SOB with exertion and at rest. Oriented to room, belongings in closet, pt weighed, and to bed. Will continue to monitor.
[2016-10-03] MEDS ORDERED: levoFLOXacin 750 mg Tablet PO SCH (03:01)
--- NOTE | 2016-10-03 03:02 | PCM.HPMED ---
Subjective Date of Service Oct 02, 2016 Primary Provider: Admitting Physician: Primary Care Physician: Kevin Mitchell MD Attending Physician: Admit Status: From the Emergency Department Chief Complaint: Shortness of breath History of Present Illness: Yolis Ornelas is a 55 year old morbidly obese female with a complex medical history including recent CVA x2, chronic respiratory failure secondary to COPD, obstructive asthma, CHF, type II diabetes mellitus, diabetic neuropathy, seizure disorder and bipolar disorder who presents with shortness of breath starting 1 week ago. She has associated productive cough with green sputum and wheezing that started 4 days ago. She notes that she is on 3L O2 at home and uses duonebs three times per day, but has needed to increase the frequency to four times daily. She uses trilogy at night for sleep. The patient was admitted to [facility] due to pneumonia and sepsis from July 23-August 14 and feels like her symptoms today are similar to that time. She denies any fever, chills, nausea, vomiting, abdominal pain, diarrhea. She does note she hasn't had a bowel movement in 5 days. Review of Systems: A comprehensive review of systems was conducted with the patient and found to be negative except as above in the History of Present Illness. Allergies Coded Allergies: Contrast Media (Verified Allergy, Severe, Anaphylaxis, 10/02/16) Sulfa (Sulfonamide Antibiotics) (Verified Allergy, Severe, Rash,Itching, SOB, 10/02/16) iodine (Verified Allergy, Severe, UNSPEC, 10/02/16) topical iodine causes rash ketorolac (Verified Allergy, Severe, 10/02/16) paranoia per pt meperidine (Verified Allergy, Severe, UNSPEC, 07/23/16) paranoia and asthma povidone (Verified Allergy, Severe, 07/23/16) cefazolin sodium (Verified Allergy, Intermediate, Rash,Itching,SOB, ) cefazolin (Verified Allergy, Unknown, 10/02/16) shellfish derived (Verified Allergy, Unknown, 07/23/16) asthma, rash from food tromethamine (Verified Allergy, Unknown, 07/23/16) Uncoded Allergies: FRAGRANCES (Allergy, Unknown, 04/17/06) SEAFOOD (Allergy, Unknown, 07/10/03) Home Medications Scheduled Aripiprazole (Abilify) 10 Mg Tablet 10 MG PO HS Aspirin (Aspirin) 325 Mg Tablet 325 MG PO DAILY Budesonide/Formoterol 160-4.5 mcg Inh (Symbicort 160-4.5 mcg Inh) 120 Puff Inhaler 2 PUFF INHALATION BID Dextroamphetamine/Amphetamine (Amphetamine Mixed Salts) 30 Mg Tablet 30 MG PO BID Duloxetine (Duloxetine) 60 Mg Capsule.dr 60 MG PO DAILY Fenofibrate Nanocrystallized (Fenofibrate) 48 Mg Tablet 48 MG PO DAILY Fluoxetine (Fluoxetine) 10 Mg Tablet 35 MG PO DAILY Furosemide (Furosemide) 80 Mg Tab 120 MG PO AM Lisdexamfetamine Dimesylate (Vyvanse) 70 Mg Capsule 70 MG PO QAM Loratadine (Claritin) 10 Mg Capsule 10 MG PO QAM Multivit with Calcium,Iron,Min (Therapeutic M) 1 Each Tablet 1 EACH PO QAM Nystatin (Nystatin) 60 Applic/15 Gm Cream 1 APPLIC TOPICAL BID Potassium Chloride (Potassium Chloride) 20 Meq/15 Ml Liquid 20 MEQ PO BID Simvastatin (Simvastatin) 80 Mg Tablet 80 MG PO HS Tiotropium [place] (Spiriva) 18 Mcg Cap.w.dev 18 MCG IH HS Lamotrigine 350 mg BID Scheduled PRN Albuterol HFA (Proair HFA) 8.5 Gm Hfa.aer.ad 2 PUFFS IH Q4H PRN PRN For Shortness of Breath Albuterol Neb Soln (Albuterol Neb Soln) 2.5 Mg/3 Ml Vial.neb 2.5 MG IH DAILY PRN PRN For Shortness of Breath Azelastine HCl (Azelastine HCl) 137 Mcg/0.137 Ml [place].pump 2 SPRAY NASAL BID PRN PRN prn Fluticasone Propionate (Fluticasone Propionate Nasal) 16 Gm [place].susp 2 SPRAY NS BID PRN PRN allergy symptoms Insulin Regular, Human (HUMulin-R U-500 Insulin Vial) 500 Unit/1 Ml Vial Unknown Dose SQ TIDWM PRN PRN sliding scale BREAKFAST Ipratropium/Albuterol Sulfate (Iprat-Albut 0.5-3(2.5) mg/3 mL Inhalant Soln) 3 Ml [place].neb 3 ML IH TID PRN PRN For Shortness of Breath PMH History of Upper extremity DVT secondary to PICC line, treated with warfarin Restless leg syndrome Insulin dependent diabetes mellitus with neuropathy COPD CHF GERD osteoarthritis Osteomyelitis binasal hemianopsia sleep apnea bipolar disorder Review of seizure disorder Hyperlipidemia CVA Surgical History L4-S1 laminectomy in 1994 Right shoulder acromioplasty in 1984 Left shoulder acromioplasty in 1990, 1993 Left knee arthroscopy in 1997 Jayce fundoplication in 1993 C5-7 decompression, C3-T2 PSIS in July [address] Taylor at [facility] Family History Myocardial infarction Diabetes Social History Hx Alcohol Use: Yes (occasional) Hx Substance Use: No Hx Tobacco Use: No Smoking Status: Never Smoker Exam Vital Signs Vital Sign - Last Date Time Temp Pulse Resp B/P Pulse Ox O2 Delivery O2 Flow Rate FiO2 10/02/16 21:20 108 22 97 Aerosol Mask 7 10/02/16 20:45 36.6 137/73 Exam General: Obese female in Mild to moderate distress when coughing otherwise no acute distress. well-developed, well-nourished, appropriately interactive HEENT: Normocephalic, atraumatic. External ears without defect. Pupils equal, round, and reactive to light and accommodation. Anicteric sclerae, moist conjunctivae. Neck: Supple with full range of motion. No jugular venous distension. Lymphadenopathy L > R submandibular lymph node. Cardiovascular: Regular rate and rhythm with no murmurs, rubs, or gallops appreciated Pulmonary: Lungs with rhonchi throughout and rales at lung bases. Increased respiratory effort, but no use of accessory muscles noted. Abdomen: Bowel tones hypoactive. Soft, nontender, moderately distended. difficult to assess organomegaly. Extremities: No clubbing, cyanosis, edema, or lymphadenopathy appreciated. Skin: Wound dressing left plantar, clean dry and intact. Normal temperature, turgor, and texture; Neurological: Cranial nerves grossly intact. Normal muscle strength, tone, and bulk. No sensation in lower extremities bilaterally up to the knee. No known gait impairment. Psychiatric: Tearful about being in the hospital again and apologetic at times throughout encounter. She is Alert and oriented to person, place, and time. Lymph: no cervical or supraclavicular lymphadenopathy MSK: no joint erythema / edema Lab and Diagnostics Labs Item Value Date Time Glucose Level 138 mg/dL H 10/02/162119 Lactic Acid Level 1.8 mmol/L 10/02/162119 Troponin T 0.010 ug/L 10/02/162119 Pro-B-Type Natriuretic Peptide 55.10 pg/mL 10/02/162119 Alanine Aminotransferase (ALT/SGPT) 20 U/L 10/02/162119 Aspartate Amino Transf (AST/SGOT) 15 U/L 10/02/162119 Alkaline Phosphatase 98 U/L 10/02/162119 Result Diagram: 10/02/16211910/02/162119 X-Rays, CTs and MRIs PROCEDURE: X-RAY CHEST ONE VIEW, PORTABLE ([id number]) IMPRESSION: Persistent bibasilar pulmonary opacities right greater the left minimally improved since the previous study. Recommend radiographic followup to resolution. A chest CT with contrast may be needed to exclude underlying malignancy if this finding continues. Dictated by: Branden Hill M.D. on 10/02/2016 at 21:28 12-lead ECG Sinus Tachycardia, HR 108 Assessment & Plan Yolis Ornelas is a 55 year old morbidly obese female with a complex medical history including recent CVA x2, chronic respiratory failure secondary to COPD, obstructive asthma, CHF, type II diabetes mellitus, diabetic neuropathy, seizure disorder and bipolar disorder who presents with shortness of breath. Healthcare associated pneumonia. Present on admission, active She was hospitalized from July 23 - August 13 here for the same. Large autoimmune and fungal workup was done, essentially negative. Patient denies any aspiration. - Continue Vancomycin, Zosyn and Levaquin. - Blood cultures pending - Ordered procalcitonin, sputum culture, urinary strep pneumonia and legionella antibodies, MRSA PCR and respiratory viral PCR - Incentive Spiromter, Acapella and Chest Physiotherapy COPD Exacerbation. Present on admission, active Likely secondary to pneumonia. Patient on oxygen at home usually 3L - Duoneb q4hwa - Budesonide BID - Given methylprednisolone in the ED. Continue Prednisone 40mg daily till 10/06/16 - Oxygen as needed - Monitor O2 sats Insulin-dependent diabetes mellitus with peripheral neuropathy. Uncontrolled On last admission, patient required morning lantus ranging from 25 - 50 units throughout her hospital stay and up to 15 units in the night. - Start conservatively with Lantus 15 units at night, 25 units in the morning - Lispro 5 units TIDAC - low dose correctional Lispro algorithm - Adjust lantus accordingly Hypokalemia, chronic Patient has chronic hypokalemia and on supplementation. Currently normal on admission. - Monitor on telemetry - Home potassium continued. Requests liquid potassium and not pill form or IV form of potassium. Constipation, Present on admission, Chronic Last Bowel movement 5 days prior to admission. No pain with examination at time of admission. Patient typically takes Miralax and dulcolax when constipated. - Miralax and dulcolax scheduled Restrictive lung disease secondary to obesity hypoventilation/KENAN, chronic. Presumed stable - Patient has own Trilogy for use History of seizures/Restless Leg syndrome, chronic. Presumed stable Patient mentions she's been working with outpatient doc to decrease medication use and has stopped Topamax. - Currently taking Lamotrigine 350mg BID. Mentions she's supposed to titrate to 300 mg BID 10/05/16 ADD, presumed stable - Continue Adderall BID (0830, 1500). - Resume home dosing of Vyvanse here Left plantar chronic skin ulcers - Wound care consulted to evaluate and treat foot ulcerations Patient Status: Patient is admitted under inpatient status with expected length of stay greater than 2 midnights due to severity of presenting symptoms, risk of adverse event, and complexity of treatment plan. Resuscitation Status: DNR/DNI VTE Prophylaxis: Sub-Q Heparin (Unfractionated) VTE Mechanical Devices: Intermittant Pneumatic CD Resuscitation Status: DNR/DNI:Do Not Resuscitate/Intubate Attending Statement The patient was seen and examined together with house staff on 10/03/2016 and I agree with the history, exam and plan as outlined in the note above. Conner Ryan DO Oct 02, 2016 23:47 Ne Lin DO Oct 03, 2016 04:56
[2016-10-03] MEDS ORDERED: Insulin LISPRO Low-Dose Scale SUBQ PRN (04:15)
[2016-10-03] MEDS ORDERED: Glucose 40% Oral Gel 15 Gm Tube PO PRN (05:25)
[2016-10-03] MEDS ORDERED: Dextrose 10% 250 ML IV PRN (05:30)
[2016-10-03] MEDS: Piperacillin-Tazo 3.375 Gm Inj 3.375 GM in Dextrose 5% Minibag Plus 50 ML IV SCH ×3 (06:02→23:11)
--- NOTE | 2016-10-03 06:17 | PCM.CONPHA ---
Subjective Date of Service: Oct 03, 2016 Shortness of breath Reason for Pharmacy Consult: Vancomycin Dosing Objective Vital Signs Date Time Temp Pulse Resp B/P Pulse Ox O2 Delivery O2 Flow Rate FiO2 10/03/16 04:10 36.4 94 20 133/75 93 TRILOGY 10/03/16 04:03 3.00 32 10/03/16 01:06 36.9 92 19 143/85 94 Nasal Cannula 3.5 10/03/16 00:49 36.5 98 24 139/89 96 Nasal Cannula 3.50 10/02/16 23:47 97 17 137/57 95 Nasal Cannula 3.5 10/02/16 21:20 108 22 97 Aerosol Mask 7 10/02/16 20:45 36.6 95 30 137/73 98 Nasal Cannula 2 Intake and Output 10/01/16 10/02/16 10/03/16 00:00 00:00 00:00 Intake Total 1000 ml Balance 1000 ml Weight (Kilograms): 116.100 Height (Feet): 5 Height (Inches): 8.00 Test 10/02/16 21:20 White Blood Count 11.4th/mm3 (3.8-10.1) Red Blood Count 4.12mil/mm3 (3.90-5.20) Hemoglobin 12.3g/dL (12.0-15.6) Hematocrit 38.1% (35.0-46.0) Mean Corpuscular Volume 92.5fL (81-100) Mean Corpuscular Hemoglobin 29.9pg (27.0-35.0) Mean Corpuscular Hemoglobin Concent 32.3% (32.0-37.0) Red Cell Distribution Width 15.7% (12.3-15.4) Platelet Count 343bil/L (150-400) Neutrophils (%) (Auto) 69.1% (40-74) Lymphocytes (%) (Auto) 17.8% (14-46) Monocytes (%) (Auto) 11.1% (4-12) Eosinophils (%) (Auto) 1.4% (0-5) Basophils (%) (Auto) 0.2% (0-3) Sodium Level 140mEq/L (134-144) Potassium Level 3.6mEq/L (3.5-5.2) Chloride Level 96mEq/L (97-108) Carbon Dioxide Level 27mmol/L (18-29) Blood Urea Nitrogen 19mg/dL (6-24) Creatinine 0.90mg/dL (0.57-1.00) Estimat Glomerular Filtration Rate 93mL/min (>59) Glucose Level 138mg/dL (60-99) Lactic Acid Level 1.8mmol/L (0.4-2.0) Calcium Level 9.4mg/dL (8.5-10.1) Total Bilirubin 0.3mg/dL (0.0-1.2) Aspartate Amino Transf (AST/SGOT) 15U/L (0-50) Alanine Aminotransferase (ALT/SGPT) 20U/L (0-32) Alkaline Phosphatase 98U/L (25-150) Troponin T 0.010ug/L (0.0-0.011) Pro-B-Type Natriuretic Peptide 55.10pg/mL (0-249) Total Protein 7.6g/dL (6.4-8.4) Albumin 4.3g/dL (3.4-5.0) Procalcitonin 0.09ng/mL (0.00-0.08) Assessment/Plan Assessment/Plan VANCOMYCIN MANAGEMENT A\56YO F ADMITTED FOR DYSPNEA AND POSSIBLE HAP WBC=11.4, PROCAL=0.09 LAC=1.8 AFEBRILE SCR=0.9 CRCL=95 PT RECEIVED A LOADING DOSE VANCOMYCIN 1750MG IV X1 IN SED 10/026 P\ VANCOMYCIN 1500MG IV Q12H WITH NEXT DOSE AT 1000 / WITH A LEVEL BEFORE THE 4TH DOSE 10/04 0930 AND DAILY MONITORING OF SERUM CREATININE X3 DAYS. Servando [facility] Oct 03, 2016 06:17
[2016-10-03 06:51] LABS: BASOPHILS % (AUTO) 0.1 % (0-3); EOSINOPHILS % (AUTO) 0 % (0-5); MONOCYTES % (AUTO) 1.4 % (4-12); Mean Corpuscular Hemoglobin 29.8 pg (27.0-35.0); Mean Corpuscular Volume 93.8 fL (81-100); NEUTROPHILS % (AUTO) 92.1 % (40-74); Platelet Count 284 bil/L (150-400)
[2016-10-03] MEDS ORDERED: Albuterol 2.5 mg/3 mL Inhalation Solution NEB PRN (07:00)
[2016-10-03] MEDS ORDERED: Insulin LISPRO 300 Unit/3 mL Inj SUBQ SCH (07:30)
[2016-10-03] MEDS: Albuterol-Ipratropium 3 mL Inhalation Solution NEB SCH ×3 (08:24→18:22)
[2016-10-03] MEDS ORDERED: Amphetamines (Mixed) 20 mg Tablet PO SCH (08:30)
[2016-10-03] MEDS ORDERED: [UNRECOGNIZED DRUG - OTHER] PO SCH (08:30)
[2016-10-03] MEDS: Vancomycin Dose per Pharmacist XX SCH (08:30)
[2016-10-03] MEDS ORDERED: lamoTRIgine 100 mg Tablet PO SCH ×2 (08:30)
[2016-10-03] MEDS ORDERED: FLUoxetine 4 mg/mL 118 mL Solution PO SCH (08:30)
[2016-10-03] MEDS ORDERED: DULoxetine 30 mg DR Capsule PO SCH (08:30)
[2016-10-03] MEDS: Potassium Chloride 20 mEq/15 mL 15mL Oral Soln PO SCH ×2 (09:28→20:30)
[2016-10-03] MEDS: [UNRECOGNIZED DRUG - OTHER] PO SCH ×4 (09:29→14:46)
[2016-10-03] MEDS: predniSONE 20 mg Tablet PO SCH (09:29)
[2016-10-03] MEDS: Heparin 5,000 Unit/mL Inj SUBQ SCH ×2 (09:30→17:22)
[2016-10-03] MEDS: lamoTRIgine 25 mg Tablet PO SCH ×2 (09:31→20:30)
[2016-10-03] MEDS: lamoTRIgine 100 mg Tablet PO SCH ×2 (09:31→20:30)
[2016-10-03] MEDS: Fluticasone 0.05% 15 Spray/2 Gm 16 Gm Nasal Spray NOSTRIL PRN (09:32)
[2016-10-03] MEDS: Vancomycin Inj 1,500 MG in 0.9% Sodium Chloride 500 ML IV SCH ×2 (09:33→23:46)
[2016-10-03] MEDS: Insulin GLARgine 100 Unit/mL Syringe SUBQ SCH (10:39)
--- NOTE | 2016-10-03 13:22 | PCM.PNMED ---
Subjective Date of Service Oct 03, 2016 Subjective Patient continues with productive green sputum which has been going on for the past few days. She denies fevers but notes she never mounted a fever. She was recently hospitalized here for healthcare associated pneumonia. She notes she was doing a bit better but over the past few days developed worsening pulmonary symptoms. Exam Vital Signs Vital Sign - Last Date Time Temp Pulse Resp B/P Pulse Ox O2 Delivery O2 Flow Rate FiO2 10/03/16 12:45 94 24 95 Nasal Cannula 4.00 10/03/16 08:32 36.5 146/84 10/03/16 04:03 32 Intake and Output 10/02/16 10/02/16 10/03/16 Cumulative From/Thru 15:00 23:00 07:00 10/02/16 20:45 - 10/03/16 06:01 Intake Total 1000 ml 473 ml 1473 ml Output Total 650 ml 650 ml Balance 1000 ml -177 ml 823 ml Intake Oral 473 ml 473 ml IV Total 1000 ml 1000 ml Output Urine Total 650 ml 650 ml Exam Constitutional: Middle-aged female who looks older than her stated age Head: Normocephalic atraumatic Chest reveals diffuse rhonchi particularly at the posterior bases Cor: Regular rate and rhythm S1-S2 Abdomen: Soft nontender bowel sounds present Extremities: Trace bilateral pedal edema Neuro: Alert and oriented 3, motor strength is intact bilaterally Lab and Diagnostics Laboratory Tests 72 Hours Test 10/02/16 21:20 10/03/16 05:45 White Blood Count 11.4th/mm3 (3.8-10.1) 8.6th/mm3 (3.8-10.1) Red Blood Count 4.12mil/mm3 (3.90-5.20) 3.69mil/mm3 (3.90-5.20) Hemoglobin 12.3g/dL (12.0-15.6) 11.0g/dL (12.0-15.6) Hematocrit 38.1% (35.0-46.0) 34.6% (35.0-46.0) Mean Corpuscular Volume 92.5fL (81-100) 93.8fL (81-100) Mean Corpuscular Hemoglobin 29.9pg (27.0-35.0) 29.8pg (27.0-35.0) Mean Corpuscular Hemoglobin Concent 32.3% (32.0-37.0) 31.8% (32.0-37.0) Red Cell Distribution Width 15.7% (12.3-15.4) 15.6% (12.3-15.4) Platelet Count 343bil/L (150-400) 284bil/L (150-400) Neutrophils (%) (Auto) 69.1% (40-74) 92.1% (40-74) Lymphocytes (%) (Auto) 17.8% (14-46) 5.7% (14-46) Monocytes (%) (Auto) 11.1% (4-12) 1.4% (4-12) Eosinophils (%) (Auto) 1.4% (0-5) 0% (0-5) Basophils (%) (Auto) 0.2% (0-3) 0.1% (0-3) Sodium Level 140mEq/L (134-144) 137mEq/L (134-144) Potassium Level 3.6mEq/L (3.5-5.2) 4.7mEq/L (3.5-5.2) Chloride Level 96mEq/L (97-108) 99mEq/L (97-108) Carbon Dioxide Level 27mmol/L (18-29) 22mmol/L (18-29) Blood Urea Nitrogen 19mg/dL (6-24) 18mg/dL (6-24) Creatinine 0.90mg/dL (0.57-1.00) 0.80mg/dL (0.57-1.00) Estimat Glomerular Filtration Rate 93mL/min (>59) 107mL/min (>59) Glucose Level 138mg/dL (60-99) 314mg/dL (60-99) Lactic Acid Level 1.8mmol/L (0.4-2.0) Calcium Level 9.4mg/dL (8.5-10.1) 9.0mg/dL (8.5-10.1) Total Bilirubin 0.3mg/dL (0.0-1.2) Aspartate Amino Transf (AST/SGOT) 15U/L (0-50) Alanine Aminotransferase (ALT/SGPT) 20U/L (0-32) Alkaline Phosphatase 98U/L (25-150) Troponin T 0.010ug/L (0.0-0.011) Pro-B-Type Natriuretic Peptide 55.10pg/mL (0-249) Total Protein 7.6g/dL (6.4-8.4) Albumin 4.3g/dL (3.4-5.0) Procalcitonin 0.09ng/mL (0.00-0.08) Result Diagram: 10/03/16 0545 10/03/1645 X-Rays, CTs and MRIs PROCEDURE: X-RAY CHEST ONE VIEW, PORTABLE ([id number]) IMPRESSION: Persistent bibasilar pulmonary opacities right greater the left minimally improved since the previous study. Recommend radiographic followup to resolution. A chest CT with contrast may be needed to exclude underlying malignancy if this finding continues. Dictated by: Branden Hill M.D. on 10/02/2016 at 21:28 12-lead ECG Sinus Tachycardia, HR 108 Assessment & Plan Yolis Ornelas is a 55 year old morbidly obese female with a complex medical history including recent CVA x2, chronic respiratory failure secondary to COPD, obstructive asthma, CHF, type II diabetes mellitus, diabetic neuropathy, seizure disorder and bipolar disorder who presents with shortness of breath. Healthcare associated pneumonia. Present on admission, active She was hospitalized from July 23 - August 13 here for the same. Large autoimmune and fungal workup was done, essentially negative. Patient denies any aspiration. - Continue Vancomycin, Zosyn and Levaquin. - Blood cultures pending - Ordered procalcitonin, sputum culture, urinary strep pneumonia and legionella antibodies, MRSA PCR and respiratory viral PCR - Incentive Spiromter, Acapella and Chest Physiotherapy -Pro calcitonin is borderline elevated and I have ordered respiratory PCR -We will order CT of chest without contrast. Of note patient cannot tolerate IV contrast. COPD Exacerbation. Present on admission, active Likely secondary to pneumonia. Patient on oxygen at home usually 3L - Duoneb q4hwa - Budesonide BID - Given methylprednisolone in the ED. Continue Prednisone 40mg daily till 10/06/16 - Oxygen as needed - Monitor O2 sats Insulin-dependent diabetes mellitus with peripheral neuropathy. Uncontrolled On last admission, patient required morning lantus ranging from 25 - 50 units throughout her hospital stay and up to 15 units in the night. - Start conservatively with Lantus 15 units at night, 25 units in the morning - Lispro 5 units TIDAC - low dose correctional Lispro algorithm - Adjust lantus accordingly Hypokalemia, chronic Patient has chronic hypokalemia and on supplementation. Currently normal on admission. - Monitor on telemetry - Home potassium continued. Requests liquid potassium and not pill form or IV form of potassium. Constipation, Present on admission, Chronic Last Bowel movement 5 days prior to admission. No pain with examination at time of admission. Patient typically takes Miralax and dulcolax when constipated. - Miralax and dulcolax scheduled Restrictive lung disease secondary to obesity hypoventilation/KENAN, chronic. Presumed stable - Patient has own Trilogy for use History of seizures/Restless Leg syndrome, chronic. Presumed stable Patient mentions she's been working with outpatient doc to decrease medication use and has stopped Topamax. - Currently taking Lamotrigine 350mg BID. Mentions she's supposed to titrate to 300 mg BID 10/05/16 ADD, presumed stable - Continue Adderall BID (0830, 1500). - Resume home dosing of Vyvanse here Left plantar chronic skin ulcers - Wound care consulted to evaluate and treat foot ulcerations Patient Status: Patient is admitted under inpatient status with expected length of stay greater than 2 midnights due to severity of presenting symptoms, risk of adverse event, and complexity of treatment plan. Resuscitation Status: DNR/DNI VTE Prophylaxis: Sub-Q Heparin (Unfractionated) VTE Mechanical Devices: Intermittant Pneumatic CD Resuscitation Status: DNR/DNI:Do Not Resuscitate/Intubate Time spent 30 minutes Laurence Aldridge MD Oct 03, 2016 13:21
--- NOTE | 2016-10-03 13:45 | NUR ---
Inpatient Wound Nurse Patient seen for assessment of plantar ulcer. Patient stated that she changes dressing on L met head ulcer every other day and is seen at [facility]. Dressing was removed, and 1 cm L x 1 cm W hard callous was noted with single small drop of purulent drainage. Periwound palpation elicited no further drainage. Wound was cleansed, blotted dry, periwound swabbed with skin prep, then covered with Tegaderm Mesh. Distal portion of callous was fitted with moleskin, provided by [facility], that patient cut herself. Both of these pieces were then covered with 4x4 gauze and all secured with retention tape. Patient had no complaints of pain. [facility] will follow most likely next week, as dressing will not need to be changed again until Friday. Patient is able to change dressing independently and all supplies were left in her room.
[2016-10-03] MEDS: guaiFENesin 600 mg ER12 Tablet PO SCH ×2 (14:45→20:30)
[2016-10-03] MEDS ORDERED: FLUoxetine 4 mg/mL 118 mL Solution PO ONE (16:04)
[2016-10-03] MEDS ORDERED: Insulin LISPRO 300 Unit/3 mL Inj SUBQ ONE (16:25)
--- NOTE | 2016-10-03 17:03 | NUR ---
Social Work-initial assessment: Data:See initial assessment. Pt is a 56 y/o female who was admitted on 10/02/16 for Pneumonia per H&P. Pt's insurance is [employer] and [employer] Blind/disabled. Pt's PCP is Reggie Mitchell MD. SW met with pt and Joel at bedside, SW role explained. Pt is alert and oriented x3. Pt resides at home with her in [place] in single level home with 5 steps to enter. Pt does not drive and uses a fww or cane at baseline. Pt has Home O2 through [employer] and Trilogy machine through [employer]. Pt has a history with [facility] and [facility] for SNF. Pt has no retirement care insurance or VA benefits. SW discussed DPOA/advanced directive, pt has completed this, SW encouraged a copy to be brought in. Pt's to provide transport home. SW to follow for any HH needs. SW provided them with discharge planning checklist and encouraged them to call with any questions, phone number provided. SW will continue to follow. Assessment:Pt who is independent at baseline. Plan:Pt to discharge home when medically stable via POV. SW to follow for HH needs. SW will continue to follow. SVETLANA Roldan Addendum: 10/03/16 at 1717 by JOHNNA GIL Amended: Links added.
[2016-10-03] MEDS: levoFLOXacin 750 mg Tablet PO SCH (17:23)
[2016-10-03] MEDS: Insulin LISPRO 300 Unit/3 mL Inj SUBQ PRN (17:31)
--- NOTE | 2016-10-03 18:48 | DRSVH ---
PROCEDURE: CT CHEST WITHOUT CONTRAST ([id number]) INDICATIONS: 56 year-old female with cough, right greater than left bibasilar pulmonary opacities on chest radiograph. TECHNIQUE: Noncontrast 5 mm thick sections acquired from the pulmonary apices to the posterior costophrenic angl es. 7 mm thick coronal and sagittal MIP reformats were then acquired. For radiation dose reduction, the following was used: automated exposure control, adjustment of mA and/or kV according to patient size. COMPARISON: [facility], CR, XR CHEST 1VW (PORTABLE), 10/02/2016, 21:01. [facility], CT, CT CHEST WO CON, 07/31/2016, 13:25. FINDINGS: Image quality: Excellent. Lungs and pleura: There is asymmetric small to moderate dependent right pleural effusion, with adjace nt right lung base compressive atelectasis. Patchy airspace opacities are also present in the aerated superior portions of the right lower lobe. Left lung appears clear. No pneumothorax. Central airways appear patent and normal in caliber. Mediastinum: There is mild cardiomegaly. No pericardial effusion. No mediastinal adenopathy by size criteria. Thoracic aorta is normal in size. Main pulmonary artery is prominent in caliber at 3.7 c m diameter. Esophagus is normal in caliber. No hiatal hernia. Bones and chest wall: There is cervicothoracic spine posterior fixation hardware. Patient is status post T11 and T12 laminectomies. No suspicious bony lesions. No vertebral body compression fractures. No axillary or supraclavicular adenopathy by size criteria. Thyroid gland is normal in size. Abdomen: Visualized upper abdominal solid organs and bowel loops appear normal in the absence of con trast. Multiple surgical clips are situated around the gastroesophageal junction. IMPRESSION: 1. Small to moderate dependent right pleural effusion is of uncertain etiology, causing right lung ba se compressive atelectasis. 2. Patchy airspace opacities within the superior segment of the right lower lobe, likely early pneumo aguila. 3. Prominent main pulmonary artery, consistent with background pulmonary arterial hypertension. Dictated by: Bobo Jenkins M.D. on 10/03/2016 at 18:37 Approved by: Bobo Jenkins M.D. on 10/03/2016 at 18:46
--- NOTE | 2016-10-03 19:19 | NUR ---
Hyperglycemia: Patients blood sugars were elevated today. Her morning reading was 315 and her evening BS was 415. Patient is on prednisone. MD was notified and her Insuline sliding scale has been increased to Medium algorithm and she was given 10 units of humalog and 5 units of sliding scale with her dinner. And she also had the Lantus 25 units ordered for her. Patient stated that she takes quite a bit more insuline when she is at home, She also stated that her blood sugar does tend to increase quite a bit when she is on prednisone. Will continue to monitor patients BS and administer insuline accordingly.
[2016-10-03] MEDS ORDERED: Insulin GLARgine 100 Unit/mL Syringe SUBQ SCH (21:00)
[2016-10-03] MEDS: ARIPiprazole 10 mg Tablet PO SCH (21:48)
[2016-10-03] MEDS ORDERED: AZELASTINE NASAL PRN (22:10)
[2016-10-03] MEDS ORDERED: 0.9% Sodium Chloride 250 ML ONE (23:41)
[2016-10-04] VITALS (13 sets, daily range): BP systolic 113–165; BP diastolic 70–78; PULSE 86–113; RESP 16–22; O2SAT 91–98
[2016-10-04] MEDS: Heparin 5,000 Unit/mL Inj SUBQ SCH ×3 (00:28→16:35)
[2016-10-04] MEDS: Albuterol-Ipratropium 3 mL Inhalation Solution NEB SCH ×5 (01:27→20:19)
[2016-10-04] MEDS: Budesonide 0.5 mg/2 mL Inhalation Solution NEB SCH ×3 (01:27→20:19)
[2016-10-04] MEDS: Insulin LISPRO 300 Unit/3 mL Inj SUBQ PRN ×5 (02:14→21:50)
--- NOTE | 2016-10-04 02:39 | NUR ---
sputum Pt coughed up teaspoon size amount of sputum, slightly tinged with blood. Reported to charge nurse, will continue to follow.
[2016-10-04] MEDS: Piperacillin-Tazo 3.375 Gm Inj 3.375 GM in Dextrose 5% Minibag Plus 50 ML IV SCH (05:45)
[2016-10-04] MEDS: Potassium Chloride 20 mEq/15 mL 15mL Oral Soln PO SCH ×2 (08:30→20:16)
[2016-10-04] MEDS ORDERED: FLUoxetine 4 mg/mL 118 mL Solution PO SCH (08:30)
[2016-10-04] MEDS: Vancomycin Dose per Pharmacist XX SCH (08:30)
[2016-10-04] MEDS: Insulin GLARgine 100 Unit/mL Syringe SUBQ SCH (08:56)
[2016-10-04] MEDS: Fluticasone 0.05% 15 Spray/2 Gm 16 Gm Nasal Spray NOSTRIL PRN (08:58)
[2016-10-04] MEDS: predniSONE 20 mg Tablet PO SCH (08:59)
[2016-10-04] MEDS: guaiFENesin 600 mg ER12 Tablet PO SCH ×2 (08:59→20:14)
[2016-10-04] MEDS: lamoTRIgine 100 mg Tablet PO SCH ×2 (09:00→20:14)
[2016-10-04] MEDS: lamoTRIgine 25 mg Tablet PO SCH ×2 (09:01→20:13)
[2016-10-04] MEDS: [UNRECOGNIZED DRUG - OTHER] PO SCH ×4 (09:06→15:03)
[2016-10-04] MEDS: FLUoxetine 4 mg/mL 118 mL Solution PO SCH (09:26)
[2016-10-04] MEDS: Polyethylene Glycol (PEG) 17 Gm Powder PO PRN (09:26)
[2016-10-04] MEDS ORDERED: Vancomycin Serum Trough XX ONE (09:30)
--- NOTE | 2016-10-04 11:15 | PCM.PHAPRO ---
Progress Shortness of breath VANCOMYCIN DOSING PER PHARMACY Indication: HAP Labs: Scr: 0.90 Additional abx: zosyn, levaquin Trough: 10 P: Risk of accumulation and in addition to zosyn, will continue vancomycin 1500 mg IV Q12H Will continue to trend the SCr Will draw additional trough on 10/05 @ 2130 Pharmacy will continue to follow Lisy Medrano PharmD Oct 04, 2016 11:15
[2016-10-04] MEDS: Vancomycin Inj 1,500 MG in 0.9% Sodium Chloride 500 ML IV SCH (12:38)
--- NOTE | 2016-10-04 14:57 | PCM.PNMED ---
Subjective Date of Service Oct 04, 2016 Subjective Patient does note some improvement in cough and wheezing. Denies any fevers or chills. She also denies any history of coughing more when she eats. She does tell me she had normal swallowing eval last admission in July when she presented with pneumonia. Exam Vital Signs Vital Sign - Last Date Time Temp Pulse Resp B/P Pulse Ox O2 Delivery O2 Flow Rate FiO2 10/04/16 14:27 95 20 95 Nasal Cannula 3.50 10/04/16 13:27 36.4 165/78 10/03/16 04:03 32 Intake and Output 10/03/16 10/03/16 10/04/16 Cumulative From/Thru 15:00 23:00 07:00 10/02/16 20:45 - 10/04/16 06:23 Intake Total 2122 ml 1309 ml 4904 ml Output Total 3500 ml 2500 ml 6650 ml Balance -1378 ml -1191 ml -1746 ml Intake Oral 1558 ml 600 ml 2631 ml IV Total 564 ml 709 ml 2273 ml Output Urine Total 3500 ml 2500 ml 6650 ml # Bowel Movements 0 0 Exam Constitutional: Middle-aged female who looks older than her stated age Head: Normocephalic atraumatic Chest reveals some scattered rhonchi with decreased breath sounds in right base Cor: Regular rate and rhythm S1-S2 Abdomen: Soft nontender bowel sounds present Extremities: No pedal edema Skin: No rashes Psych: Mood and affect are appropriate Neuro: Alert and oriented 3, motor strength is intact bilaterally she does have some tremors of her upper extremities which is chronic IVs and Medications Medications Reviewed: Medications were reviewed in detail Lab and Diagnostics Laboratory Tests 72 Hours Test 10/02/16 21:20 10/03/16 05:45 10/04/16 06:00 10/04/16 09:30 White Blood Count 11.4th/mm3 (3.8-10.1) 8.6th/mm3 (3.8-10.1) Red Blood Count 4.12mil/mm3 (3.90-5.20) 3.69mil/mm3 (3.90-5.20) Hemoglobin 12.3g/dL (12.0-15.6) 11.0g/dL (12.0-15.6) Hematocrit 38.1% (35.0-46.0) 34.6% (35.0-46.0) Mean Corpuscular Volume 92.5fL (81-100) 93.8fL (81-100) Mean Corpuscular Hemoglobin 29.9pg (27.0-35.0) 29.8pg (27.0-35.0) Mean Corpuscular Hemoglobin Concent 32.3% (32.0-37.0) 31.8% (32.0-37.0) Red Cell Distribution Width 15.7% (12.3-15.4) 15.6% (12.3-15.4) Platelet Count 343bil/L (150-400) 284bil/L (150-400) Neutrophils (%) (Auto) 69.1% (40-74) 92.1% (40-74) Lymphocytes (%) (Auto) 17.8% (14-46) 5.7% (14-46) Monocytes (%) (Auto) 11.1% (4-12) 1.4% (4-12) Eosinophils (%) (Auto) 1.4% (0-5) 0% (0-5) Basophils (%) (Auto) 0.2% (0-3) 0.1% (0-3) Sodium Level 140mEq/L (134-144) 137mEq/L (134-144) Potassium Level 3.6mEq/L (3.5-5.2) 4.7mEq/L (3.5-5.2) Chloride Level 96mEq/L (97-108) 99mEq/L (97-108) Carbon Dioxide Level 27mmol/L (18-29) 22mmol/L (18-29) Blood Urea Nitrogen 19mg/dL (6-24) 18mg/dL (6-24) Creatinine 0.90mg/dL (0.57-1.00) 0.80mg/dL (0.57-1.00) 0.90mg/dL (0.57-1.00) Estimat Glomerular Filtration Rate 93mL/min (>59) 107mL/min (>59) Glucose Level 138mg/dL (60-99) 314mg/dL (60-99) Lactic Acid Level 1.8mmol/L (0.4-2.0) Calcium Level 9.4mg/dL (8.5-10.1) 9.0mg/dL (8.5-10.1) Total Bilirubin 0.3mg/dL (0.0-1.2) Aspartate Amino Transf (AST/SGOT) 15U/L (0-50) Alanine Aminotransferase (ALT/SGPT) 20U/L (0-32) Alkaline Phosphatase 98U/L (25-150) Troponin T 0.010ug/L (0.0-0.011) Pro-B-Type Natriuretic Peptide 55.10pg/mL (0-249) Total Protein 7.6g/dL (6.4-8.4) Albumin 4.3g/dL (3.4-5.0) Procalcitonin 0.09ng/mL (0.00-0.08) Vancomycin Level Trough 10.0mcg/mL Result Diagram: 10/03/16 0545 10/04/16 0600 X-Rays, CTs and MRIs PROCEDURE: X-RAY CHEST ONE VIEW, PORTABLE ([id number]) IMPRESSION: Persistent bibasilar pulmonary opacities right greater the left minimally improved since the previous study. Recommend radiographic followup to resolution. A chest CT with contrast may be needed to exclude underlying malignancy if this finding continues. Dictated by: Branden Hill M.D. on 10/02/2016 at 21:28 PROCEDURE: CT CHEST WITHOUT CONTRAST ([id number]) INDICATIONS: 56 year-old female with cough, right greater than left bibasilar pulmonary opacities on chest radiograph. TECHNIQUE: Noncontrast 5 mm thick sections acquired from the pulmonary apices to the posterior costophrenic angles. 7 mm thick coronal and sagittal MIP reformats were then acquired. For radiation dose reduction, the following was used: automated exposure control, adjustment of mA and/or kV according to patient size. COMPARISON: [facility], CR, XR CHEST 1VW (PORTABLE), 10/02/2016, 21: 01. [facility], CT, CT CHEST WO CON, 07/31/2016, 13:25. FINDINGS: Image quality: Excellent. Lungs and pleura: There is asymmetric small to moderate dependent right pleural effusion, with adjacent right lung base compressive atelectasis. Patchy airspace opacities are also present in the aerated superior portions of the right lower lobe. Left lung appears clear. No pneumothorax. Central airways appear patent and normal in caliber. Mediastinum: There is mild cardiomegaly. No pericardial effusion. No mediastinal adenopathy by size criteria. Thoracic aorta is normal in size. Main pulmonary artery is prominent in caliber at 3.7 cm diameter. Esophagus is normal in caliber. No hiatal hernia. Bones and chest wall: There is cervicothoracic spine posterior fixation hardware. Patient is status post T11 and T12 laminectomies. No suspicious bony lesions. No vertebral body compression fractures. No axillary or supraclavicular adenopathy by size criteria. Thyroid gland is normal in size. Abdomen: Visualized upper abdominal solid organs and bowel loops appear normal in the absence of contrast. Multiple surgical clips are situated around the gastroesophageal junction. IMPRESSION: 1. Small to moderate dependent right pleural effusion is of uncertain etiology, causing right lung base compressive atelectasis. 2. Patchy airspace opacities within the superior segment of the right lower lobe , likely early pneumonia. 3. Prominent main pulmonary artery, consistent with background pulmonary arterial hypertension. Dictated by: Bobo Jenkins M.D. on 10/03/2016 at 18:37 Approved by: Bobo Jenkins M.D. on 10/03/2016 at 18:46 12-lead ECG Sinus Tachycardia, HR 108 Assessment & Plan Yolis Ornelas is a 55 year old morbidly obese female with a complex medical history including recent CVA x2, chronic respiratory failure secondary to COPD, obstructive asthma, CHF, type II diabetes mellitus, diabetic neuropathy, seizure disorder and bipolar disorder who presents with shortness of breath. Healthcare associated pneumonia. Present on admission, active She was hospitalized from July 23 - August 13 here for the same. Large autoimmune and fungal workup was done, essentially negative. Patient denies any aspiration. - Appreciate pulmonary consultation today and further recommendations will DC IV vancomycin and IV Zosyn and continue with Levaquin therapy - Blood cultures pending - Procalcitonin, sputum culture, urinary strep pneumonia and legionella antibodies, MRSA PCR and respiratory viral PCR were all nonsignificant. - Incentive Spiromter, Acapella and Chest Physiotherapy - CT of chest without contrast (Of note patient cannot tolerate IV contrast) shows small to moderate dependent right pleural effusion of uncertain etiology causing right lung base compressive atelectasis. Patchy airspace opacities with this. Segment of the right lower lobe, possible early pneumonia. Along with prominent main pulmonary artery consistent with background pulmonary arterial hypertension. COPD Exacerbation. Present on admission, active Likely secondary to pneumonia. Patient on oxygen at home usually 3L - Duoneb q4hwa - Budesonide BID - Given methylprednisolone in the ED. Continue Prednisone 40mg daily till 10/06/16 - Oxygen as needed - Monitor O2 sats Insulin-dependent diabetes mellitus with peripheral neuropathy. Uncontrolled On last admission, patient required morning lantus ranging from 25 - 50 units throughout her hospital stay and up to 15 units in the night. - Start conservatively with Lantus 15 units at night, 25 units in the morning - Lispro 5 units TIDAC - low dose correctional Lispro algorithm - Adjust lantus accordingly Hypokalemia, chronic Patient has chronic hypokalemia and on supplementation. Currently normal on admission. - Monitor on telemetry - Home potassium continued. Requests liquid potassium and not pill form or IV form of potassium. Constipation, Present on admission, Chronic Last Bowel movement 5 days prior to admission. No pain with examination at time of admission. Patient typically takes Miralax and dulcolax when constipated. - Miralax and dulcolax scheduled Restrictive lung disease secondary to obesity hypoventilation/KENAN, chronic. Presumed stable - Patient has own Trilogy for use History of seizures/Restless Leg syndrome, chronic. Presumed stable Patient mentions she's been working with outpatient doc to decrease medication use and has stopped Topamax. - Currently taking Lamotrigine 350mg BID. Mentions she's supposed to titrate to 300 mg BID 10/05/16 ADD, presumed stable - Continue Adderall BID (0830, 1500). - Resume home dosing of Vyvanse here Left plantar chronic skin ulcers - Wound care consulted to evaluate and treat foot ulcerations Patient Status: Patient is admitted under inpatient status with expected length of stay greater than 2 midnights due to severity of presenting symptoms, risk of adverse event, and complexity of treatment plan. Resuscitation Status: DNR/DNI VTE Prophylaxis: Sub-Q Heparin (Unfractionated) VTE Mechanical Devices: Intermittant Pneumatic CD Resuscitation Status: DNR/DNI:Do Not Resuscitate/Intubate Time spent 30 minutes Laurence Aldridge MD Oct 04, 2016 14:57
[2016-10-04] MEDS: levoFLOXacin 750 mg Tablet PO SCH (16:35)
[2016-10-04] MEDS ORDERED: Insulin LISPRO 300 Unit/3 mL Inj SUBQ ONE (17:20)
--- NOTE | 2016-10-04 17:57 | NUR ---
Breathing/cough: Patient continues to be on 3 liters of 02 continuous via NC. Her 02 sat was 97%. Patient recieved scheduled Nebs and cough med . She is coughing up small amounts of thick costa red streaked sputum. Patient stated that she is less short of breath. Her lungs have some wheezing in the bases. She is changed to oral Antibiotics now.
--- NOTE | 2016-10-04 19:56 | CONS ---
[address] [address] CONSULTATION REPORT PATIENT: JAILENE LOBATO : 1960 MR#: [id number] ADMIT: 10/02/2016 JOB ID: [id number] DATE OF SERVICE: 10/04/2016 PULMONARY CRITICAL CARE CONSULTATION: REQUESTING CLINICIAN: [facility]. REASON FOR CONSULTATION: Acute on chronic hypoxemic respiratory failure and abnormal chest imaging. HISTORY OF PRESENT ILLNESS: The patient is a morbidly obese 56-year-old with severe obstructive sleep apnea and obesity hypoventilation syndrome. She presents with a 1-week history of cough, increasing sputum production, and worsening dyspnea. It is notable that she was hospitalized in July of this year with a severe bilateral pneumonia and severe hypoxemic respiratory failure. Chest imaging at that time revealed diffuse alveolar infiltrates in virtually all lung zones but most pronounced at her right posterior base. After admission she was started on empiric antibiotics. Chest imaging showed infiltrate at the right base. A chest CT scan was obtained today and reveals a small loculated fluid collection in the right posterior base with surrounding compressive atelectasis and some chronic appearing bronchial wall changes in the superior segmental bronchus. She says "I feel better than when I got here." Cough is decreasing, as is the amount of sputum production. She denies chest pain, rigors, chills, or sweats. She still feels slightly more dyspneic than baseline but certainly compared to admission she is improved. She normally wears 2.5 L at rest and with exertion of home oxygen. Here she is requiring 3.5 L to maintain O2 saturation in the mid 90% range. PAST MEDICAL HISTORY: 1. Morbid obesity, BMI 40. 2. Obesity alveolar hypoventilation syndrome on Trilogy noninvasive home ventilation. 3. History of upper extremity DVT related to PICC line, status post completion of three months of systemic anticoagulation. 4. Restless legs syndrome. Recently had her Requip discontinued out of concern it might be contributing to her essential tremor. 5. Essential tremor. 6. Wos-[id number]-eopksrzcr diabetes mellitus. 7. Bipolar disorder. 8. History of CVA. 9. Dyslipidemia. OUTPATIENT MEDICATIONS: Include aripiprazole, aspirin, Symbicort, Adderall, duloxetine, fenofibrate, fluoxetine, furosemide, Vyvanse, loratadine, nystatin, simvastatin, Spiriva, albuterol, lamotrigine. DRUG ALLERGIES: CONTRAST, CEFAZOLIN, KETORALAC, MEPERIDINE, TROMETHAMINE, POVIDONE. SOCIAL HISTORY: She is . She uses alcohol on rare occasion. She denies substance abuse and is a never smoker. FAMILY HISTORY: Positive for obesity, diabetes, and coronary artery disease. REVIEW OF SYSTEMS: As above. She denies fevers, chills, rigors, sweats, chest pain, PND, orthopnea, worsening lower extremity swelling, or recent hemoptysis. She has had no episodes of vomiting or witnessed aspiration. She uses her Trilogy regularly every night and denies medical noncompliance with her other treatments as well. Recently she has developed a fine resting tremor with an intention component. She was evaluated at the [facility] and they recommended some changes in her medications which they felt might be contributing to what is perceived to be an essential tremor. CURRENT INPATIENT MEDICATIONS: Include albuterol by small volume nebulizer, insulin lispro sliding scale, Tessalon Perles, now discontinued, levofloxacin 750 mg p.o. daily, heparin 5000 units subcu q.8 hours, Adderall 30 mg daily, fluoxetine 35 mg p.o. daily, MiraLAX powder daily, lamotrigine 50 mg p.o. b.i.d., loratadine 10 mg p.o. at h.s., aspirin 325 daily, furosemide 120 mg p.o. daily, guaifenesin 1200 mg p.o. q.12 hours, prednisone 40 mg p.o. daily, Colace 5 mg daily, Flonase nasal spray 0.05% two sprays each nostril daily, insulin glargine 25 units subcu a.m., budesonide small volume nebulizer 0.5 mg b.i.d., atorvastatin 40 mg at h.s., aripiprazole 10 mg at h.s., naproxen 375 b.i.d. p.r.n., potassium chloride 20 mEq p.o. b.i.d., insulin glargine 22 units at h.s., Cymbalta 60 mg at h.s. PHYSICAL EXAMINATION: This is an obese woman who is alert, cooperative throughout the exam, appears comfortable and in no distress. Her blood pressure is 170/80, heart rate is regular at 100, respiratory rate is 20, O2 saturation 95% to 97% at rest on 3.5 L by simple cannula. HEENT: Gaze appears conjugate. Conjunctivae not injected. Sclerae anicteric. Pupils appear equal. The oropharynx shows a grade 3 Mallampati airway. Moist mucosa. No ulcerations or exudate. The trachea is midline. There is no lymphadenopathy or crepitus in the neck and I cannot appreciate any thyroid tissue at its base. Lungs are clear to percussion. On auscultation she has markedly decreased breath sounds bilaterally, particularly at the right posterior base. In addition there are scattered bibasilar crackles without wheeze or rhonchi. Cardiac: Distant, regular rhythm. Normal S1, S2. No murmur, gallop, or rub. Abdomen is soft, nontender to deep palpation. I cannot detect any organomegaly but it is a difficult exam due to her body habitus. Bowel tones are present. Extremities: No cyanosis or clubbing. She has pallor of the upper nail beds. They are warm. Pulses are 1+ at both wrists, barely perceptible trace at both dorsalis pedis, and she has bilateral 1+ edema to the midcalf bilaterally. DATABASE: As per the electronic medical record: Her CBC shows a hemoglobin of 11, hematocrit 34.6, WBC 8.6, and 284,000 platelets. Most recent chemistries are sodium 137, potassium 4.7, chloride 99, total CO2 22, BUN 18, creatinine 0.8, random glucose 314, and total calcium 9.0. Procalcitonin since admission was minimally elevated at 0.09. Chest imaging is personally reviewed, both her portable single-view chest x-ray and a noncontrast chest CT scan. The latter shows a small to moderate loculated pleural effusion at the right lung base that appears to abut the major fissure. There is associated compressive atelectasis posterior to this fluid, and then, as mentioned previously above, the superior segmental bronchus airways appear thickened, with very minimal patchy infiltrate at their terminus. IMPRESSION: The radiographic pattern and history from the events in July suggest that she still has some sort of ongoing aspiration leading to these recurrent lower respiratory tract infections. While a formal swallow study failed to demonstrate large volume aspiration, she has all the risk factors including using a positive pressure noninvasive ventilator at night which of course raises her intragastric pressures and further predisposes towards aspiration. There is no question that she needs the noninvasive ventilation and, unless she can lose weight and thereby achieve adequate ventilation on lower pressure settings or a different device, she is probably going to suffer ongoing recurrent episodes of aspiration and resultant pneumonia. Fortunately in this episode she appears to be relatively minimally ill. Her O2 saturation is just barely greater than her baseline. There has been no growth on any of her cultures and I think we can deescalate her empiric antibiotics to a single agent, levofloxacin daily. She has been afebrile since admission and white count has fallen into the normal range rapidly within 24 hours on empiric antibiotics. If she continues remain afebrile on oral antibiotics, and with O2 requirements at or very close to her usual baseline, I believe that she can be discharged. The question is, exactly what to do about this loculated fluid collection at the right base. For now, she seems to be doing well clinically and I am afraid that we could face some serious complications if we should attempt to tap this rather small and loculated effusion, which I believe to be relatively asymptomatic. It is not clear that it is entirely a new fluid collection either, given that there was quite a bit of density in this area on her CT scans from July. My recommendation is that we treat her apparent acute bronchopneumonia, which I feel is secondary to recurrent aspiration, and once she is fully at her baseline to repeat the imaging in 2-3 weeks and determine whether this fluid collection persists. If it does at that time, and she is completely back to baseline and otherwise stable from a Pulmonary standpoint, we could again contemplate an attempt at probably CT-guided diagnostic thoracentesis to characterize this fluid and decide on a plan. RECOMMENDATIONS: 1. Discontinue all empiric antibiotics except for levofloxacin 750 p.o. daily. 2. Wean O2 as tolerated. 3. Anticipate discharge soon if she remains afebrile and on her baseline O2 requirements. 4. Repeat noncontrast chest CT in 2-3 weeks and consider an attempt at diagnostic thoracentesis at that time if fluid persists or progresses.
[2016-10-04] MEDS ORDERED: Insulin GLARgine 100 Unit/mL Syringe SUBQ SCH (21:00)
[2016-10-04] MEDS: DULoxetine 30 mg DR Capsule PO SCH (21:20)
[2016-10-04] MEDS: ARIPiprazole 10 mg Tablet PO SCH (21:20)
--- NOTE | 2016-10-04 21:45 | NUR ---
BS Pt BS was 458 and 439, paged Dr about sliding scale, will give 4 units and check again in 2 hours and page results.
[2016-10-04] MEDS: Benzocaine-Menthol Lozenge 2/Pkg PO PRN (21:52)
[2016-10-05] VITALS (8 sets, daily range): BP systolic 121–138; BP diastolic 66–77; PULSE 81–103; RESP 20–22; O2SAT 93–98
[2016-10-05] MEDS: Heparin 5,000 Unit/mL Inj SUBQ SCH ×4 (00:52→23:37)
--- NOTE | 2016-10-05 03:09 | NUR ---
Blood culture Lab called with positive blood culture, anaerobic positive for cocci, probable strep. Will paged night hospitalist with information.
[2016-10-05] MEDS: Budesonide 0.5 mg/2 mL Inhalation Solution NEB SCH ×2 (07:25→19:50)
[2016-10-05] MEDS: Albuterol-Ipratropium 3 mL Inhalation Solution NEB SCH ×4 (07:25→19:51)
[2016-10-05 07:56] LABS: Mean Corpuscular Hemoglobin 29.9 pg (27.0-35.0); Mean Corpuscular Volume 93.7 fL (81-100); NEUTROPHILS % (AUTO) 63.7 % (40-74); Platelet Count 322 bil/L (150-400)
[2016-10-05 07:57] LABS: BASOPHILS % (AUTO) 0.4 % (0-3); EOSINOPHILS % (AUTO) 0.9 % (0-5); MONOCYTES % (AUTO) 8.8 % (4-12)
[2016-10-05] MEDS: lamoTRIgine 100 mg Tablet PO SCH ×2 (08:44→23:27)
[2016-10-05] MEDS: Potassium Chloride 20 mEq/15 mL 15mL Oral Soln PO SCH ×2 (08:45→20:30)
[2016-10-05] MEDS: FLUoxetine 4 mg/mL 118 mL Solution PO SCH (08:45)
[2016-10-05] MEDS: Insulin GLARgine 100 Unit/mL Syringe SUBQ SCH ×2 (08:47→23:37)
[2016-10-05] MEDS: lamoTRIgine 25 mg Tablet PO SCH ×2 (08:48→23:27)
[2016-10-05] MEDS: guaiFENesin 600 mg ER12 Tablet PO SCH ×2 (08:58→23:26)
[2016-10-05] MEDS: predniSONE 20 mg Tablet PO SCH (08:58)
[2016-10-05] MEDS: [UNRECOGNIZED DRUG - OTHER] PO SCH ×4 (08:58→16:50)
[2016-10-05] MEDS ORDERED: Glucose 40% Oral Gel 15 Gm Tube PO PRN (10:10)
[2016-10-05] MEDS: Benzocaine-Menthol Lozenge 2/Pkg PO PRN ×3 (10:19→23:29)
[2016-10-05] MEDS: Insulin LISPRO 300 Unit/3 mL Inj SUBQ PRN (10:20)
[2016-10-05] MEDS: Insulin LISPRO 300 Unit/3 mL Inj SUBQ SCH ×3 (12:01→23:38)
--- NOTE | 2016-10-05 16:07 | PCM.PNMED ---
Subjective Date of Service Oct 05, 2016 Subjective Patient with improving cough and respiratory status although does not feel that she is ready to go home at this point as she is still somewhat having shortness of breath and some wheezing. Exam Vital Signs Vital Sign - Last Date Time Temp Pulse Resp B/P Pulse Ox O2 Delivery O2 Flow Rate FiO2 10/05/16 11:14 92 20 97 Nasal Cannula 3.50 10/05/16 09:46 36.5 121/72 10/03/16 04:03 32 Intake and Output 10/04/16 10/04/16 10/05/16 Cumulative From/Thru 15:00 23:00 07:00 10/02/16 20:45 - 10/05/16 05:18 Intake Total 872 ml 617 ml 6393 ml Output Total 3200 ml 9850 ml Balance -2328 ml 617 ml -3457 ml Intake Oral 872 ml 3503 ml IV Total 617 ml 2890 ml Output Urine Total 3200 ml 9850 ml # Bowel Movements 0 Exam Constitutional: Middle-aged female in no acute distress Head: Normocephalic med Chest reveals some scant GERD expiratory wheezes Cor: Regular rate and rhythm S1-S2 Abdomen: Soft nontender bowel sounds present Extremities no pedal edema Neuro: Alert and oriented 3, motor strength is intact bilateral she does have bilateral hand arm tremors chronic Lab and Diagnostics Result Diagram: 10/05/16 0615 10/05/16 0615 X-Rays, CTs and MRIs PROCEDURE: X-RAY CHEST ONE VIEW, PORTABLE ([id number]) IMPRESSION: Persistent bibasilar pulmonary opacities right greater the left minimally improved since the previous study. Recommend radiographic followup to resolution. A chest CT with contrast may be needed to exclude underlying malignancy if this finding continues. Dictated by: Branden Hill M.D. on 10/02/2016 at 21:28 PROCEDURE: CT CHEST WITHOUT CONTRAST ([id number]) INDICATIONS: 56 year-old female with cough, right greater than left bibasilar pulmonary opacities on chest radiograph. TECHNIQUE: Noncontrast 5 mm thick sections acquired from the pulmonary apices to the posterior costophrenic angles. 7 mm thick coronal and sagittal MIP reformats were then acquired. For radiation dose reduction, the following was used: automated exposure control, adjustment of mA and/or kV according to patient size. COMPARISON: [facility], CR, XR CHEST 1VW (PORTABLE), 10/02/2016, 21: 01. [facility], CT, CT CHEST WO CON, 07/31/2016, 13:25. FINDINGS: Image quality: Excellent. Lungs and pleura: There is asymmetric small to moderate dependent right pleural effusion, with adjacent right lung base compressive atelectasis. Patchy airspace opacities are also present in the aerated superior portions of the right lower lobe. Left lung appears clear. No pneumothorax. Central airways appear patent and normal in caliber. Mediastinum: There is mild cardiomegaly. No pericardial effusion. No mediastinal adenopathy by size criteria. Thoracic aorta is normal in size. Main pulmonary artery is prominent in caliber at 3.7 cm diameter. Esophagus is normal in caliber. No hiatal hernia. Bones and chest wall: There is cervicothoracic spine posterior fixation hardware. Patient is status post T11 and T12 laminectomies. No suspicious bony lesions. No vertebral body compression fractures. No axillary or supraclavicular adenopathy by size criteria. Thyroid gland is normal in size. Abdomen: Visualized upper abdominal solid organs and bowel loops appear normal in the absence of contrast. Multiple surgical clips are situated around the gastroesophageal junction. IMPRESSION: 1. Small to moderate dependent right pleural effusion is of uncertain etiology, causing right lung base compressive atelectasis. 2. Patchy airspace opacities within the superior segment of the right lower lobe , likely early pneumonia. 3. Prominent main pulmonary artery, consistent with background pulmonary arterial hypertension. Dictated by: Bobo Jenkins M.D. on 10/03/2016 at 18:37 Approved by: Bobo Jenkins M.D. on 10/03/2016 at 18:46 12-lead ECG Sinus Tachycardia, HR 108 Assessment & Plan Yolis Ornelas is a 55 year old morbidly obese female with a complex medical history including recent CVA x2, chronic respiratory failure secondary to COPD, obstructive asthma, CHF, type II diabetes mellitus, diabetic neuropathy, seizure disorder and bipolar disorder who presents with shortness of breath. Healthcare associated pneumonia. Present on admission, active She was hospitalized from July 23 - August 13 here for the same. Large autoimmune and fungal workup was done, essentially negative. Patient denies any aspiration. - Appreciate pulmonary consultation today and further recommendations will DC IV vancomycin and IV Zosyn and continue with Levaquin therapy - Blood cultures pending - Procalcitonin, sputum culture, urinary strep pneumonia and legionella antibodies, MRSA PCR and respiratory viral PCR were all nonsignificant. - Incentive Spiromter, Acapella and Chest Physiotherapy - CT of chest without contrast (Of note patient cannot tolerate IV contrast) shows small to moderate dependent right pleural effusion of uncertain etiology causing right lung base compressive atelectasis. Patchy airspace opacities with this. Segment of the right lower lobe, possible early pneumonia. Along with prominent main pulmonary artery consistent with background pulmonary arterial hypertension. COPD Exacerbation. Present on admission, active Likely secondary to pneumonia. Patient on oxygen at home usually 3L - Duoneb q4hwa - Budesonide BID - Given methylprednisolone in the ED. Continue Prednisone 40mg daily till 10/06/16 - Oxygen as needed - Monitor O2 sats Insulin-dependent diabetes mellitus with peripheral neuropathy. Uncontrolled On last admission, patient required morning lantus ranging from 25 - 50 units throughout her hospital stay and up to 15 units in the night. - Start conservatively with Lantus 15 units at night, 25 units in the morning - Lispro 5 units TIDAC - low dose correctional Lispro algorithm - Adjust lantus accordingly Hypokalemia, chronic Patient has chronic hypokalemia and on supplementation. Currently normal on admission. - Monitor on telemetry - Home potassium continued. Requests liquid potassium and not pill form or IV form of potassium. Constipation, Present on admission, Chronic Last Bowel movement 5 days prior to admission. No pain with examination at time of admission. Patient typically takes Miralax and dulcolax when constipated. - Miralax and dulcolax scheduled Restrictive lung disease secondary to obesity hypoventilation/KENAN, chronic. Presumed stable - Patient has own Trilogy for use History of seizures/Restless Leg syndrome, chronic. Presumed stable Patient mentions she's been working with outpatient doc to decrease medication use and has stopped Topamax. - Currently taking Lamotrigine 350mg BID. Mentions she's supposed to titrate to 300 mg BID 10/05/16 ADD, presumed stable - Continue Adderall BID (0830, 1500). - Resume home dosing of Vyvanse here Left plantar chronic skin ulcers - Wound care consulted to evaluate and treat foot ulcerations Patient Status: Patient is admitted under inpatient status with expected length of stay greater than 2 midnights due to severity of presenting symptoms, risk of adverse event, and complexity of treatment plan. Resuscitation Status: DNR/DNI VTE Prophylaxis: Sub-Q Heparin (Unfractionated) VTE Mechanical Devices: Intermittant Pneumatic CD Resuscitation Status: DNR/DNI:Do Not Resuscitate/Intubate Time spent 20 minutes Laurence Aldridge MD Oct 05, 2016 16:07
[2016-10-05] MEDS: levoFLOXacin 750 mg Tablet PO SCH (16:50)
[2016-10-05] MEDS: Polyethylene Glycol (PEG) 17 Gm Powder PO PRN (17:08)
--- NOTE | 2016-10-05 17:22 | NUR ---
Blood Sugars/Cough/Pain Blood sugars trending upward, message left w/ ED admission discharge rn to let blue team know that dinner BG was 482, 12units admin per correctional scale & RN would like to know if additional insulin is needed. Or, an increase in Lantus. Patient states likely BG increase d/t steroids. Patients cough is fairly aggressive, taking her breath away. Tessalon pearles & lozenges being admin w/ a "fair" result. asked about robitussen or stronger strength cough suppressant, patients cough is productive & knows she needs to rid of phlegm, she is having head & muscular pain around ribs from aggressive cough. also asked if something other then naproxen & Tylenol can be ordered for her rib cage/head pain, states it doesn't work. notified by ED admission discharge rn around 1700. Continuing to monitor.
[2016-10-05] MEDS ORDERED: Insulin LISPRO 300 Unit/3 mL Inj SUBQ ONE (18:50)
[2016-10-05] MEDS ORDERED: Vancomycin Serum Trough XX ONE (21:30)
[2016-10-05] MEDS: ARIPiprazole 10 mg Tablet PO SCH (23:27)
[2016-10-05] MEDS: DULoxetine 30 mg DR Capsule PO SCH (23:27)
[2016-10-05] MEDS: Codeine-APAP 30-300 mg Tablet PO PRN (23:28)
[2016-10-06] VITALS (8 sets, daily range): BP systolic 111–156; BP diastolic 67–87; PULSE 87–104; RESP 18–20; O2SAT 92–97
--- NOTE | 2016-10-06 06:29 | NUR ---
Respiratory Reports breathing almost back at baseline on 3.5L NC which is patients home O2 rate. Continues with infrequent cough throughout shift for which prn medications were given and effective. Currently resting without any complaints.
[2016-10-06] MEDS: Budesonide 0.5 mg/2 mL Inhalation Solution NEB SCH ×2 (07:30→20:37)
[2016-10-06] MEDS: Albuterol-Ipratropium 3 mL Inhalation Solution NEB SCH ×4 (07:30→20:37)
[2016-10-06] MEDS: Insulin LISPRO 300 Unit/3 mL Inj SUBQ SCH ×4 (07:42→21:24)
[2016-10-06] MEDS: predniSONE 20 mg Tablet PO SCH (07:43)
[2016-10-06] MEDS: lamoTRIgine 25 mg Tablet PO SCH ×2 (07:44→07:51)
[2016-10-06] MEDS: lamoTRIgine 100 mg Tablet PO SCH ×2 (07:44→19:59)
[2016-10-06] MEDS: guaiFENesin 600 mg ER12 Tablet PO SCH ×2 (07:44→19:55)
[2016-10-06] MEDS: FLUoxetine 4 mg/mL 118 mL Solution PO SCH (07:45)
[2016-10-06] MEDS: Potassium Chloride 20 mEq/15 mL 15mL Oral Soln PO SCH ×2 (07:45→19:53)
[2016-10-06] MEDS: [UNRECOGNIZED DRUG - OTHER] PO SCH ×4 (07:45→15:04)
[2016-10-06] MEDS: Heparin 5,000 Unit/mL Inj SUBQ SCH ×2 (07:46→16:59)
[2016-10-06] MEDS: Insulin GLARgine 100 Unit/mL Syringe SUBQ SCH ×2 (07:47→21:23)
--- NOTE | 2016-10-06 08:00 | PCM.DIMED ---
Laurence Aldridge MD 10/06/16 0800: Discharge Instructions Date of Service Oct 06, 2016 Dates of Hospitalization Oct 02, 2016 at 23:47 Discharge Diagnosis Discharge Diagnosis COPD exacerbation, Pneumonia vs acute bronchitis Diet Discharge Diet: Diabetic Activity Discharge Activity: Other (as tolerated) Call your provider Call your provider for: Fever or Chills, Shortness of breath, Bleeding, Chest pain, Vomitting, Excessive diarrhea, Weakness (unilateral) Patient Instructions Follow-up Provider: Kevin Mitchell MD Follow-up with PCP in: Other (3-5 days,sooner if problems) Brianna Hagen DO 10/11/16 1420: Discharge Instructions Discharge Diagnosis Discharge Diagnosis foot ulcer, chest pain, strep A bacteremia Medication Instructions Additional med instructions Please see PCP in one week Please skip lucien time insulin if you are skipping meals Diet Discharge Diet: Heart Healthy, Diabetic Activity Discharge Activity: No restrictions Patient Instructions Follow-up plan F/U with PCP in one week Repeat Chest CT in 6 weeks for f/u of Pneumonia f/u with Dr. Cervantes on 10/18/16 as previously scheduled Follow-up Provider: [facility] Follow-up with PCP in: 1 week (3-5 days,sooner if problems) Laurence Aldridge MD Oct 06, 2016 08:00 Brianna Hagen DO Oct 11, 2016 14:20
[2016-10-06] MEDS ORDERED: BUDE0.5A NEB (08:09)
[2016-10-06] MEDS ORDERED: PRED-508 PO (08:09)
[2016-10-06] MEDS ORDERED: ACET1TAB42 PO (08:09)
[2016-10-06] MEDS ORDERED: BENZ100C8 PO (08:09)
[2016-10-06] MEDS ORDERED: INSU100V7 SUBQ ×2 (08:09)
[2016-10-06] MEDS ORDERED: GUAI600T86 PO (08:09)
[2016-10-06] MEDS ORDERED: LEVO750T9 PO (08:09)
--- NOTE | 2016-10-06 08:14 | PCM.DC.MED ---
Discharge Summary Date of Service Oct 06, 2016 Dates of Hospitalization Date of Hospital Admission Oct 02, 2016 at 23:47 Date of Discharge: Oct 06, 2016 Providers: Admitting Physician: Ne Lin DO Primary Care Physician: Kevin Mitchell MD Attending Physician: Laurence Aldridge MD Diagnosis at Time of Discharge Diagnosis at Time of Discharge COPD exacerbation, Pneumonia vs acute bronchitis Consultations Pulmonary, infectious disease Procedures XRay, CTs & MRIs PROCEDURE: X-RAY CHEST ONE VIEW, PORTABLE ([id number]) IMPRESSION: Persistent bibasilar pulmonary opacities right greater the left minimally improved since the previous study. Recommend radiographic followup to resolution. A chest CT with contrast may be needed to exclude underlying malignancy if this finding continues. Dictated by: Branden Hill M.D. on 10/02/2016 at 21:28 PROCEDURE: CT CHEST WITHOUT CONTRAST ([id number]) INDICATIONS: 56 year-old female with cough, right greater than left bibasilar pulmonary opacities on chest radiograph. TECHNIQUE: Noncontrast 5 mm thick sections acquired from the pulmonary apices to the posterior costophrenic angles. 7 mm thick coronal and sagittal MIP reformats were then acquired. For radiation dose reduction, the following was used: automated exposure control, adjustment of mA and/or kV according to patient size. COMPARISON: [facility], CR, XR CHEST 1VW (PORTABLE), 10/02/2016, 21: 01. [facility], CT, CT CHEST WO CON, 07/31/2016, 13:25. FINDINGS: Image quality: Excellent. Lungs and pleura: There is asymmetric small to moderate dependent right pleural effusion, with adjacent right lung base compressive atelectasis. Patchy airspace opacities are also present in the aerated superior portions of the right lower lobe. Left lung appears clear. No pneumothorax. Central airways appear patent and normal in caliber. Mediastinum: There is mild cardiomegaly. No pericardial effusion. No mediastinal adenopathy by size criteria. Thoracic aorta is normal in size. Main pulmonary artery is prominent in caliber at 3.7 cm diameter. Esophagus is normal in caliber. No hiatal hernia. Bones and chest wall: There is cervicothoracic spine posterior fixation hardware. Patient is status post T11 and T12 laminectomies. No suspicious bony lesions. No vertebral body compression fractures. No axillary or supraclavicular adenopathy by size criteria. Thyroid gland is normal in size. Abdomen: Visualized upper abdominal solid organs and bowel loops appear normal in the absence of contrast. Multiple surgical clips are situated around the gastroesophageal junction. IMPRESSION: 1. Small to moderate dependent right pleural effusion is of uncertain etiology, causing right lung base compressive atelectasis. 2. Patchy airspace opacities within the superior segment of the right lower lobe , likely early pneumonia. 3. Prominent main pulmonary artery, consistent with background pulmonary arterial hypertension. Dictated by: Bobo Jenkins M.D. on 10/03/2016 at 18:37 Approved by: Bobo Jenkins M.D. on 10/03/2016 at 18:46 ECG 12 Lead Sinus Tachycardia, HR 108 Brief History Yolis Ornelas is a 55 year old morbidly obese female with a complex medical history including recent CVA x2, chronic respiratory failure secondary to COPD, obstructive asthma, CHF, type II diabetes mellitus, diabetic neuropathy, seizure disorder and bipolar disorder who presents with shortness of breath starting 1 week ago. She has associated productive cough with green sputum and wheezing that started 4 days ago. She notes that she is on 3L O2 at home and uses duonebs three times per day, but has needed to increase the frequency to four times daily. She uses trilogy at night for sleep. The patient was admitted to [facility] due to pneumonia and sepsis from July 23-August 14 and feels like her symptoms today are similar to that time. She denies any fever, chills, nausea, vomiting, abdominal pain, diarrhea. She does note she hasn't had a bowel movement in 5 days. Hospital Course Yolis Ornelas is a 55 year old morbidly obese female with a complex medical history including recent CVA x2, chronic respiratory failure secondary to COPD, obstructive asthma, CHF, type II diabetes mellitus, diabetic neuropathy, seizure disorder and bipolar disorder who presents with shortness of breath. Group A beta-hemolytic strep bacteremia, acute, present on admission -1 of 4 blood cultures came back positive today with group A beta hemolytic strep -I consulted with infectious disease, Dr. Yen, who recommended IV Rocephin, repeating blood cultures, obtain transthoracic echocardiogram. Appreciate expertise of infectious disease consultation. Hence discharge has been on hold as of October 06. Healthcare associated pneumonia. Present on admission, active She was hospitalized from July 23 - August 13 here for the same. Large autoimmune and fungal workup was done, essentially negative. Patient denies any aspiration. - Appreciate pulmonary consultation today and further recommendations will DC IV vancomycin and IV Zosyn and continue with Levaquin therapy Recommendations per pulmonary as below: IMPRESSION: The radiographic pattern and history from the events in July suggest that she still has some sort of ongoing aspiration leading to these recurrent lower respiratory tract infections. While a formal swallow study failed to demonstrate large volume aspiration, she has all the risk factors including using a positive pressure noninvasive ventilator at night which of course raises her intragastric pressures and further predisposes towards aspiration. There is no question that she needs the noninvasive ventilation and, unless she can lose weight and thereby achieve adequate ventilation on lower pressure settings or a different device, she is probably going to suffer ongoing recurrent episodes of aspiration and resultant pneumonia. Fortunately in this episode she appears to be relatively minimally ill. Her O2 saturation is just barely greater than her baseline. There has been no growth on any of her cultures and I think we can deescalate her empiric antibiotics to a single agent, levofloxacin daily. She has been afebrile since admission and white count has fallen into the normal range rapidly within 24 hours on empiric antibiotics. If she continues remain afebrile on oral antibiotics, and with O2 requirements at or very close to her usual baseline, I believe that she can be discharged. The question is, exactly what to do about this loculated fluid collection at the right base. For now, she seems to be doing well clinically and I am afraid that we could face some serious complications if we should attempt to tap this rather small and loculated effusion, which I believe to be relatively asymptomatic. It is not clear that it is entirely a new fluid collection either, given that there was quite a bit of density in this area on her CT scans from July. My recommendation is that we treat her apparent acute bronchopneumonia, which I feel is secondary to recurrent aspiration, and once she is fully at her baseline to repeat the imaging in 2-3 weeks and determine whether this fluid collection persists. If it does at that time, and she is completely back to baseline and otherwise stable from a Pulmonary standpoint, we could again contemplate an attempt at probably CT-guided diagnostic thoracentesis to characterize this fluid and decide on a plan. RECOMMENDATIONS: 1. Discontinue all empiric antibiotics except for levofloxacin 750 p.o. daily. 2. Wean O2 as tolerated. 3. Anticipate discharge soon if she remains afebrile and on her baseline O2 requirements. 4. Repeat noncontrast chest CT in 2-3 weeks and consider an attempt at diagnostic thoracentesis at that time if fluid persists or progresses. Arnol Walter MD 10/04/16 7415 <Electronically signed by Arnol Walter MD> 10/05/16 0740 - Blood cultures pending - Procalcitonin, sputum culture, urinary strep pneumonia and legionella antibodies, MRSA PCR and respiratory viral PCR were all nonsignificant. - Incentive Spiromter, Acapella and Chest Physiotherapy - CT of chest without contrast (Of note patient cannot tolerate IV contrast) shows small to moderate dependent right pleural effusion of uncertain etiology causing right lung base compressive atelectasis. Patchy airspace opacities with this. Segment of the right lower lobe, possible early pneumonia. Along with prominent main pulmonary artery consistent with background pulmonary arterial hypertension. COPD Exacerbation. Present on admission, active Likely secondary to pneumonia. Patient on oxygen at home usually 3L - Duoneb q4hwa - Budesonide BID - Given methylprednisolone in the ED. Continue Prednisone 40mg daily. - Oxygen as needed - Monitor O2 sats Insulin-dependent diabetes mellitus with peripheral neuropathy. Uncontrolled On last admission, patient required morning lantus ranging from 25 - 50 units throughout her hospital stay and up to 15 units in the night. - Start conservatively with Lantus 15 units at night, 25 units in the morning - Lispro 5 units TIDAC - low dose correctional Lispro algorithm - Adjust lantus accordingly Hypokalemia, chronic Patient has chronic hypokalemia and on supplementation. Currently normal on admission. - Monitor on telemetry - Home potassium continued. Requests liquid potassium and not pill form or IV form of potassium. Constipation, Present on admission, Chronic Last Bowel movement 5 days prior to admission. No pain with examination at time of admission. Patient typically takes Miralax and dulcolax when constipated. - Miralax and dulcolax scheduled Restrictive lung disease secondary to obesity hypoventilation/KENAN, chronic. Presumed stable - Patient has own Trilogy for use History of seizures/Restless Leg syndrome, chronic. Presumed stable Patient mentions she's been working with outpatient doc to decrease medication use and has stopped Topamax. - Currently taking Lamotrigine 350mg BID. Mentions she's supposed to titrate to 300 mg BID 10/05/16 ADD, presumed stable - Continue Adderall BID (0830, 1500). - Resume home dosing of Vyvanse here Left plantar chronic skin ulcers - Wound care consulted to evaluate and treat foot ulcerations Resuscitation Status: DNR/DNI Exam Vital Signs (Last) Date Time Temp Pulse Resp B/P Pulse Ox O2 Delivery O2 Flow Rate FiO2 10/06/16 07:59 Supplement Oxygen 10/06/16 07:30 87 20 97 3.50 10/06/16 05:35 36.6 111/74 10/03/16 04:03 32 Test 10/02/16 21:20 10/04/16 09:30 10/05/16 06:15 Lactic Acid Level 1.8mmol/L (0.4-2.0) Troponin T 0.010ug/L (0.0-0.011) Pro-B-Type Natriuretic Peptide 55.10pg/mL (0-249) Procalcitonin 0.09ng/mL (0.00-0.08) Vancomycin Level Trough 10.0mcg/mL White Blood Count 8.1th/mm3 (3.8-10.1) Red Blood Count 3.65mil/mm3 (3.90-5.20) Hemoglobin 10.9g/dL (12.0-15.6) Hematocrit 34.2% (35.0-46.0) Mean Corpuscular Volume 93.7fL (81-100) Mean Corpuscular Hemoglobin 29.9pg (27.0-35.0) Mean Corpuscular Hemoglobin Concent 31.9% (32.0-37.0) Red Cell Distribution Width 15.8% (12.3-15.4) Platelet Count 322bil/L (150-400) Neutrophils (%) (Auto) 63.7% (40-74) Lymphocytes (%) (Auto) 24.6% (14-46) Monocytes (%) (Auto) 8.8% (4-12) Eosinophils (%) (Auto) 0.9% (0-5) Basophils (%) (Auto) 0.4% (0-3) Sodium Level 139mEq/L (134-144) Potassium Level 3.9mEq/L (3.5-5.2) Chloride Level 95mEq/L (97-108) Carbon Dioxide Level 27mmol/L (18-29) Blood Urea Nitrogen 25mg/dL (6-24) Creatinine 0.86mg/dL (0.57-1.00) Estimat Glomerular Filtration Rate 98mL/min (>59) Glucose Level 272mg/dL (60-99) Calcium Level 8.8mg/dL (8.5-10.1) Total Bilirubin 0.2mg/dL (0.0-1.2) Aspartate Amino Transf (AST/SGOT) 10U/L (0-50) Alanine Aminotransferase (ALT/SGPT) 16U/L (0-32) Alkaline Phosphatase 78U/L (25-150) Total Protein 6.0g/dL (6.4-8.4) Albumin 3.6g/dL (3.4-5.0) Discharge Medications Discharge Medications Aripiprazole (Abilify) 10 Mg Tablet 10 MG PO HS (Reported) Aspirin (Aspirin) 325 Mg Tablet 325 MG PO DAILY Prescribed by: MARIA ELENA VILLA DO Budesonide (Pulmicort) 0.5 Mg/2 Ml Ampul.neb. 0.5 MG NEB BID Prescribed by: LAURENCE ALDRIDGE MD Budesonide/Formoterol 160-4.5 mcg Inh (Symbicort 160-4.5 mcg Inh) 120 Puff Inhaler 2 PUFF INHALATION BID (Reported) Dextroamphetamine/Amphetamine (Amphetamine Mixed Salts) 30 Mg Tablet 30 MG PO BID (Reported) Duloxetine (Duloxetine) 60 Mg Capsule.dr 60 MG PO DAILY (Reported) Fenofibrate Nanocrystallized (Fenofibrate) 48 Mg Tablet 48 MG PO DAILY (Reported ) Fluoxetine (Fluoxetine) 10 Mg Tablet 35 MG PO DAILY (Reported) Furosemide (Furosemide) 80 Mg Tab 120 MG PO AM (Reported) Guaifenesin (Guaifenesin ER) 600 Mg Tab.er.12h 1,200 MG PO Q12 Prescribed by: LAURENCE ALDRIDGE MD Insulin Glargine (Lantus U100 Insulin Vial) 100 Unit/Ml Vial 26 UNIT SUBQ HS Prescribed by: LAURENCE ALDRIDGE MD Insulin Glargine (Lantus U100 Insulin Vial) 100 Unit/Ml Vial 25 UNIT SUBQ MORNING Prescribed by: LAURENCE ALDRIDGE MD Levofloxacin (Levaquin) 750 Mg Tablet 750 MG PO DAILYWD Prescribed by: LAURENCE ALDRIDGE MD Lisdexamfetamine Dimesylate (Vyvanse) 70 Mg Capsule 70 MG PO QAM (Reported) Loratadine (Claritin) 10 Mg Capsule 10 MG PO QAM (Reported) Multivit with Calcium,Iron,Min (Therapeutic M) 1 Each Tablet 1 EACH PO QAM ( Reported) Nystatin (Nystatin) 60 Applic/15 Gm Cream 1 APPLIC TOPICAL BID Prescribed by: RENETTA ALMAGUER MD Potassium Chloride (Potassium Chloride) 20 Meq/15 Ml Liquid 20 MEQ PO BID Prescribed by: RENETTA ALMAGUER MD Prednisone (Deltasone) 20 Mg Tablet 40 MG PO DAILY Prescribed by: LAURENCE ALDRIDGE MD Simvastatin (Simvastatin) 80 Mg Tablet 80 MG PO HS (Reported) Tiotropium [place] (Spiriva) 18 Mcg Cap.w.dev 18 MCG IH HS (Reported) Topiramate (Topamax) 50 Mg Tablet 50 MG PO BID (Reported) As needed Acetaminophen/Codeine 300-30mg (Acetaminophen/Codeine 300-30mg) 1 Each Tablet 1 TABLET PO Q4 PRN PRN For Cough Prescribed by: LAURENCE ALDRIDGE MD Albuterol HFA (Proair HFA) 8.5 Gm Hfa.aer.ad 2 PUFFS IH Q4H PRN PRN For Shortness of Breath (Reported) Albuterol Neb Soln (Albuterol Neb Soln) 2.5 Mg/3 Ml Vial.neb 2.5 MG IH DAILY PRN PRN For Shortness of Breath (Reported) Azelastine HCl (Azelastine HCl) 137 Mcg/0.137 Ml [place].pump 2 SPRAY NASAL BID PRN PRN prn (Reported) Benzonatate (Benzonatate) 100 Mg Capsule 100 MG PO TID PRN PRN For Cough Prescribed by: LAURENCE ALDRIDGE MD Fluticasone Propionate (Fluticasone Propionate Nasal) 16 Gm [place].susp 2 SPRAY NS BID PRN PRN allergy symptoms (Reported) Insulin Regular, Human (HUMulin-R U-500 Insulin Vial) 500 Unit/1 Ml Vial Unknown Dose SQ TIDWM PRN PRN sliding scale (Reported) BREAKFAST Ipratropium/Albuterol Sulfate (Iprat-Albut 0.5-3(2.5) mg/3 mL Inhalant Soln) 3 Ml Ampul.neb 3 ML IH TID PRN PRN For Shortness of Breath (Reported) Followup Plan Disposition: Home Discharge Diet: Diabetic Discharge Activity: Other (as tolerated) Follow-up Provider: Kevin Mitchell MD Follow-up with PCP in: Other (3-5 days,sooner if problems) Laurence Aldridge MD Oct 06, 2016 08:14
[2016-10-06] MEDS: cefTRIAXone Inj 2,000 MG in Dextrose 5% Minibag Plus 50 ML IV SCH (10:57)
--- NOTE | 2016-10-06 11:21 | PCM.PNMED ---
Subjective Date of Service Oct 06, 2016 Subjective 56 yo morbidly obese woman with recurrent lung infections admitted with cough , SOB and increased sputum production x 1 week. Today she reports "I'm better, from a pulmonary standpoint". O2 flow rate decreased to her baseline 2.5 L/ min Exam Vital Signs Vital Sign - Last Date Time Temp Pulse Resp B/P Pulse Ox O2 Delivery O2 Flow Rate FiO2 10/06/16 07:59 Supplement Oxygen 10/06/16 07:30 87 20 97 3.50 10/06/16 05:35 36.6 111/74 10/03/16 04:03 32 Intake and Output 10/05/16 10/05/16 10/06/16 Cumulative From/Thru 15:00 23:00 07:00 10/02/16 20:45 - 10/06/16 05:51 Intake Total 400 ml 1826 ml 0 ml 8619 ml Output Total 1100 ml 3725 ml 87961 ml Balance -700 ml -1899 ml 0 ml -6056 ml Intake Oral 400 ml 1806 ml 5709 ml IV Total 20 ml 0 ml 2910 ml Output Urine Total 1100 ml 3725 ml 54827 ml # Bowel Movements 0 Exam Lungs Good air movement, Localized crackles at Rt posterior base. NO wheezes CV RRR, no m/g/r Lab and Diagnostics Result Diagram: 10/05/1615 10/05/1615 X-Rays, CTs and MRIs PROCEDURE: X-RAY CHEST ONE VIEW, PORTABLE ([id number]) IMPRESSION: Persistent bibasilar pulmonary opacities right greater the left minimally improved since the previous study. Recommend radiographic followup to resolution. A chest CT with contrast may be needed to exclude underlying malignancy if this finding continues. Dictated by: Branden Hill M.D. on 10/02/2016 at 21:28 PROCEDURE: CT CHEST WITHOUT CONTRAST ([id number]) INDICATIONS: 56 year-old female with cough, right greater than left bibasilar pulmonary opacities on chest radiograph. TECHNIQUE: Noncontrast 5 mm thick sections acquired from the pulmonary apices to the posterior costophrenic angles. 7 mm thick coronal and sagittal MIP reformats were then acquired. For radiation dose reduction, the following was used: automated exposure control, adjustment of mA and/or kV according to patient size. COMPARISON: [facility], CR, XR CHEST 1VW (PORTABLE), 10/02/2016, 21: 01. [facility], CT, CT CHEST WO CON, 07/31/2016, 13:25. FINDINGS: Image quality: Excellent. Lungs and pleura: There is asymmetric small to moderate dependent right pleural effusion, with adjacent right lung base compressive atelectasis. Patchy airspace opacities are also present in the aerated superior portions of the right lower lobe. Left lung appears clear. No pneumothorax. Central airways appear patent and normal in caliber. Mediastinum: There is mild cardiomegaly. No pericardial effusion. No mediastinal adenopathy by size criteria. Thoracic aorta is normal in size. Main pulmonary artery is prominent in caliber at 3.7 cm diameter. Esophagus is normal in caliber. No hiatal hernia. Bones and chest wall: There is cervicothoracic spine posterior fixation hardware. Patient is status post T11 and T12 laminectomies. No suspicious bony lesions. No vertebral body compression fractures. No axillary or supraclavicular adenopathy by size criteria. Thyroid gland is normal in size. Abdomen: Visualized upper abdominal solid organs and bowel loops appear normal in the absence of contrast. Multiple surgical clips are situated around the gastroesophageal junction. IMPRESSION: 1. Small to moderate dependent right pleural effusion is of uncertain etiology, causing right lung base compressive atelectasis. 2. Patchy airspace opacities within the superior segment of the right lower lobe , likely early pneumonia. 3. Prominent main pulmonary artery, consistent with background pulmonary arterial hypertension. Dictated by: Bobo Jenkins M.D. on 10/03/2016 at 18:37 Approved by: Bobo Jenkins M.D. on 10/03/2016 at 18:46 12-lead ECG Sinus Tachycardia, HR 108 Assessment & Plan IMP RLL bronchopneumonia with small loculated effusion in the area of a severe pneumonia in July of this year. I strongly suspect that she has recurrent aspiration. REC Complete minimum 7 days broad spectrum abx, eg Levoflox DC Benzonatate as it further predisposes to aspiration by anesthetizing the upper airways. Repeat noncontrast chest CT in 2-3 weeks and consider further evaluation of loculated effusion if it persists or progresses VTE Prophylaxis: Sub-Q Heparin (Unfractionated) VTE Mechanical Devices: Intermittant Pneumatic CD Resuscitation Status: DNR/DNI:Do Not Resuscitate/Intubate Arnol Walter MD Oct 06, 2016 11:21
--- NOTE | 2016-10-06 12:19 | NUR ---
BG/Culture of left foot 1140 BG 452, 12units of Lispro admin per correctional dose scale, made aware to see if additional should be admin, no orders as of yet. Patient currently on a con carb diet, kitchen adds up carbs when order is placed. Asymptomatic. Patient pressed call light to have RN assess ball of left foot, stated she was cleaning her ongoing sore on ball of left foot & there was drainage, states it hasn't drained in a few months, made aware, assessed foot, order placed for culture, culture sent. Patient currently has bacteremia, strep A from u/k source, states wound could be source of entry. Dr. Yen & wound care consulted.
[2016-10-06] MEDS: Polyethylene Glycol (PEG) 17 Gm Powder PO PRN (17:19)
--- NOTE | 2016-10-06 17:36 | NUR ---
Social Work- Readiness for D/C Plan: EMR reviewed. Pt is on day 4 of hospitalization. Pt discussed in multidisciplinary rounds, pt was going to discharge then d/c orders were cancelled. ID will see patient tomorrow. Blood cultures pending. Pt is anticipated to discharge home, SW continues to follow. Assessment: Pt who is independent at baseline. Plan: ID will see patient tomorrow. Pt is anticipated to discharge home, SW continues to follow. SVETLANA Freeman
--- NOTE | 2016-10-06 18:37 | NUR ---
Elevated Blood Glucose made aware of noon hour elevated BG, see previous note. No orders given. 1700 BG 491, cookpaged to be made aware.
[2016-10-06] MEDS: Fluticasone 0.05% 15 Spray/2 Gm 16 Gm Nasal Spray NOSTRIL PRN (19:57)
[2016-10-06] MEDS: Benzocaine-Menthol Lozenge 2/Pkg PO PRN (19:59)
[2016-10-06] MEDS: ARIPiprazole 10 mg Tablet PO SCH (20:00)
[2016-10-06] MEDS: DULoxetine 30 mg DR Capsule PO SCH (20:00)
--- NOTE | 2016-10-06 22:46 | NUR ---
O2 need decreased Pt on 2L of O2 via NC, sating at 94%. Continuous pulse ox in place. Pt states to be feeling better today with her breathing.
[2016-10-07] VITALS (9 sets, daily range): BP systolic 116–127; BP diastolic 68–78; PULSE 85–121; RESP 18–24; O2SAT 93–98
[2016-10-07] MEDS: Heparin 5,000 Unit/mL Inj SUBQ SCH ×4 (01:13→21:43)
[2016-10-07] MEDS ORDERED: Magnesium Hydroxide 10 mL Oral Concentration PO PRN (07:10)
[2016-10-07] MEDS: Albuterol-Ipratropium 3 mL Inhalation Solution NEB SCH ×4 (07:16→20:35)
[2016-10-07] MEDS: Budesonide 0.5 mg/2 mL Inhalation Solution NEB SCH ×2 (07:16→20:35)
[2016-10-07] MEDS: Insulin LISPRO 300 Unit/3 mL Inj SUBQ SCH ×4 (08:57→21:40)
[2016-10-07 08:59] LABS: BASOPHILS % (AUTO) 0.6 % (0-3); EOSINOPHILS % (AUTO) 1.3 % (0-5); MONOCYTES % (AUTO) 7.8 % (4-12); Mean Corpuscular Hemoglobin 29.5 pg (27.0-35.0); Mean Corpuscular Volume 91.2 fL (81-100); NEUTROPHILS % (AUTO) 59.4 % (40-74); Platelet Count 346 bil/L (150-400)
[2016-10-07] MEDS: Polyethylene Glycol (PEG) 17 Gm Powder PO PRN (10:00)
[2016-10-07] MEDS: cefTRIAXone Inj 2,000 MG in Dextrose 5% Minibag Plus 50 ML IV SCH (10:00)
[2016-10-07] MEDS: Potassium Chloride 20 mEq/15 mL 15mL Oral Soln PO SCH ×2 (10:01→21:41)
[2016-10-07] MEDS: lamoTRIgine 25 mg Tablet PO SCH ×2 (10:01→21:44)
[2016-10-07] MEDS: predniSONE 20 mg Tablet PO SCH (10:01)
[2016-10-07] MEDS: [UNRECOGNIZED DRUG - OTHER] PO SCH ×4 (10:01→16:47)
[2016-10-07] MEDS: guaiFENesin 600 mg ER12 Tablet PO SCH ×2 (10:02→21:41)
[2016-10-07] MEDS: lamoTRIgine 100 mg Tablet PO SCH ×2 (10:07→21:43)
--- NOTE | 2016-10-07 10:23 | DRSVH ---
[facility] [address] [place] [address] Echocardiogram Report Name: JAILENE LOBATO EStudy Date : 10/07/2016 Height: 68 in Hospital Exam Location: [facility] Weight: 25 0 lb Gender: Female BSA: 2.2 m2 : 1960 Age: 56 yrs BP: 121/73 mmHg Reason For Study: Endocarditis Ordering Physician: Colton Eli Performed By: Francine Fair Referring Physician: Dr. Reggie Mitchell Interpretation Summary The left ventricle is mildly dilated. The ejection fraction is estimated to be 60-65%. There has been no significant change in LV EF since the previous study. The right ventricle is grossly normal size. The right ventricular systolic function is normal. There is mild to moderate tricuspid regurgitation. Compared to the prior echo exam, there has been an increase in TR severity. Right ventricular systolic pressure is estimated to be 40 mmHg plus the clinically estimated CVP which cannot be estimated on this exam. Compared to the prior echo exam, there has been an increase in the severity of pulmonary hypertension. No obvious valvular vegetation seen. Consider STEFAN, if clinical suspicion for endocarditis is high. Procedure: A two-dimensional transthoracic echocardiogram with color flow and Doppler was performed in limited views only. The study quality was technically adequate. Comparison is made with the echocardiogram of 07-24-16. The patient was in normal sinus rhythm during the exam. Left Ventricle: The left ventricle is mildly dilated. There is no thrombus. The ejection fraction is estimated to be 60-65%. There has been no significant change since the previous study. There are no focal wall motion abnormalities. Diastolic function could not be accurately assessed due to unobtainable data. Right Ventricle: The right ventricle is grossly normal size. The right ventricular systolic function is normal. Mitral Valve: There is mild mitral annular calcification. There is trace mitral regurgitation. Aortic Valve: The aortic valve is trileaflet. The aortic valve is not well visualized. There is no aortic valve stenosis. No aortic regurgitation is present. Tricuspid Valve: The tricuspid valve is normal. There is mild to moderate tricuspid regurgitation. Right ventricular systolic pressure is estimated to be 40 mmHg plus the clinically estimated CVP which cannot be estimated on this exam. Compared to the prior echo exam, there has been an increase in TR severity. Compared to the prior echo exam, there has been an increase in the severity of pulmonary hypertension. Pulmonic Valve: The pulmonic valve is not well visualized. Great Vessels: The inferior vena cava was not visualized. Pericardium/ Pleura There is no pericardial effusion. There is an anterior echo-free space consistent with a fat pad. There is no pleural effusion. MMode/2D Measurements & Calculations LVIDd AoV Opening LV martin. diameter/BSA LV sys. diameter/BSA : 5.8 cm (cm/m^2): 2.6 (cm/m^2): 1.4 LVIDs : 3.1 cm FS: 46.8 % EPSS : 0.5cm IVSd : 0.8cm LVPWd : 0.7cm Doppler Measurements & Calculations Ao V2 max MV E max julian MV E/A: 1.2 TR max julian : 171.2 cm/sec : 115.2 cm/sec MV A dur: 0.13 sec: 316.4 cm/sec Ao max PG MV A max julian TR max PG : 11.7 mmHg : 97.2 cm/sec : 40.0 mmHg Ao mean PG MV P1/2t: 67.3 msec PA V2 max : 6.0 mmHg : 93.3 cm/sec PA mean PG : 2.0 mmHg MV dec time MV P1/2t max julian Ao V2 mean PA V2 mean : 0.23 sec : 113.6 cm/sec : 66.6 cm/sec Ao V2 VTI: 32.1 cm MVA(P1/2t): 3.3 cm2 Reading Physician:LONNY
[2016-10-07] MEDS: Insulin GLARgine 100 Unit/mL Syringe SUBQ SCH ×2 (11:23→21:42)
[2016-10-07] MEDS: FLUoxetine 4 mg/mL 118 mL Solution PO SCH (11:23)
--- NOTE | 2016-10-07 11:44 | NUR ---
Inpatient Wound Nurse Patient seen by RISHI, stated that she just changed dressing yesterday and is following every other day regimen. Patient stated that small amount of drainage noted yesterday was non-odorous, slightly purulent. Small amount of drainage noted to gauze. Patient declined assistance with dressing change today. ALFONSOON will check back with patient tomorrow.
--- NOTE | 2016-10-07 12:17 | PCM.PNMED ---
Subjective Date of Service Oct 07, 2016 Subjective Patient without new complaints today. Yesterday afternoon he did have revealed to us that there is a chronic wound on her left fifth distal metatarsal area which she has been dressing herself. She is and has been followed by wound care for this. She has some minimal purulent type drainage from it per patient report. We did obtain a swab of this for culture and sensitivity yesterday. Exam Vital Signs Vital Sign - Last Date Time Temp Pulse Resp B/P Pulse Ox O2 Delivery O2 Flow Rate FiO2 10/07/16 10:04 36.7 98 20 127/78 97 Nasal Cannula 3.00 10/03/16 04:03 32 Intake and Output 10/06/16 10/06/16 10/07/16 Cumulative From/Thru 15:00 23:00 07:00 10/02/16 20:45 - 10/06/16 18:55 Intake Total 1150 ml 3206 ml 59557 ml Output Total 1700 ml 4375 ml 12340 ml Balance -550 ml -1169 ml -7775 ml Intake Oral 1150 ml 3126 ml 9985 ml IV Total 80 ml 2990 ml Output Urine Total 1700 ml 4375 ml 62078 ml # Bowel Movements 0 0 Exam Constitutional: Malaise female in no acute distress Head: Normocephalic atraumatic Chest decreased breath sounds at her right base Cor: Regular rate and rhythm S1-S2 Abdomen: Soft nontender bowel sounds present Extremities: No pedal edema extremities examination of her left distal metatarsal dorsal surface revealed and opened none deep ulcer area which had no drainage in the had minimal surrounding erythema. Lab and Diagnostics Laboratory Tests 72 Hours Test 10/05/16 06:15 10/07/16 07:10 White Blood Count 8.1th/mm3 (3.8-10.1) 11.0th/mm3 (3.8-10.1) Red Blood Count 3.65mil/mm3 (3.90-5.20) 4.21mil/mm3 (3.90-5.20) Hemoglobin 10.9g/dL (12.0-15.6) 12.4g/dL (12.0-15.6) Hematocrit 34.2% (35.0-46.0) 38.4% (35.0-46.0) Mean Corpuscular Volume 93.7fL (81-100) 91.2fL (81-100) Mean Corpuscular Hemoglobin 29.9pg (27.0-35.0) 29.5pg (27.0-35.0) Mean Corpuscular Hemoglobin Concent 31.9% (32.0-37.0) 32.3% (32.0-37.0) Red Cell Distribution Width 15.8% (12.3-15.4) 15.5% (12.3-15.4) Platelet Count 322bil/L (150-400) 346bil/L (150-400) Neutrophils (%) (Auto) 63.7% (40-74) 59.4% (40-74) Lymphocytes (%) (Auto) 24.6% (14-46) 27.3% (14-46) Monocytes (%) (Auto) 8.8% (4-12) 7.8% (4-12) Eosinophils (%) (Auto) 0.9% (0-5) 1.3% (0-5) Basophils (%) (Auto) 0.4% (0-3) 0.6% (0-3) Sodium Level 139mEq/L (134-144) 139mEq/L (134-144) Potassium Level 3.9mEq/L (3.5-5.2) 3.9mEq/L (3.5-5.2) Chloride Level 95mEq/L (97-108) 94mEq/L (97-108) Carbon Dioxide Level 27mmol/L (18-29) 26mmol/L (18-29) Blood Urea Nitrogen 25mg/dL (6-24) 33mg/dL (6-24) Creatinine 0.86mg/dL (0.57-1.00) 0.95mg/dL (0.57-1.00) Estimat Glomerular Filtration Rate 98mL/min (>59) 88mL/min (>59) Glucose Level 272mg/dL (60-99) 262mg/dL (60-99) Calcium Level 8.8mg/dL (8.5-10.1) 9.2mg/dL (8.5-10.1) Total Bilirubin 0.2mg/dL (0.0-1.2) 0.2mg/dL (0.0-1.2) Aspartate Amino Transf (AST/SGOT) 10U/L (0-50) 17U/L (0-50) Alanine Aminotransferase (ALT/SGPT) 16U/L (0-32) 19U/L (0-32) Alkaline Phosphatase 78U/L (25-150) 83U/L (25-150) Total Protein 6.0g/dL (6.4-8.4) 6.5g/dL (6.4-8.4) Albumin 3.6g/dL (3.4-5.0) 4.2g/dL (3.4-5.0) Result Diagram: 10/07/16 0710 10/07/16 0710 X-Rays, CTs and MRIs PROCEDURE: X-RAY CHEST ONE VIEW, PORTABLE ([id number]) IMPRESSION: Persistent bibasilar pulmonary opacities right greater the left minimally improved since the previous study. Recommend radiographic followup to resolution. A chest CT with contrast may be needed to exclude underlying malignancy if this finding continues. Dictated by: Branden Hill M.D. on 10/02/2016 at 21:28 PROCEDURE: CT CHEST WITHOUT CONTRAST ([id number]) INDICATIONS: 56 year-old female with cough, right greater than left bibasilar pulmonary opacities on chest radiograph. TECHNIQUE: Noncontrast 5 mm thick sections acquired from the pulmonary apices to the posterior costophrenic angles. 7 mm thick coronal and sagittal MIP reformats were then acquired. For radiation dose reduction, the following was used: automated exposure control, adjustment of mA and/or kV according to patient size. COMPARISON: [facility], CR, XR CHEST 1VW (PORTABLE), 10/02/2016, 21: 01. [facility], CT, CT CHEST WO CON, 07/31/2016, 13:25. FINDINGS: Image quality: Excellent. Lungs and pleura: There is asymmetric small to moderate dependent right pleural effusion, with adjacent right lung base compressive atelectasis. Patchy airspace opacities are also present in the aerated superior portions of the right lower lobe. Left lung appears clear. No pneumothorax. Central airways appear patent and normal in caliber. Mediastinum: There is mild cardiomegaly. No pericardial effusion. No mediastinal adenopathy by size criteria. Thoracic aorta is normal in size. Main pulmonary artery is prominent in caliber at 3.7 cm diameter. Esophagus is normal in caliber. No hiatal hernia. Bones and chest wall: There is cervicothoracic spine posterior fixation hardware. Patient is status post T11 and T12 laminectomies. No suspicious bony lesions. No vertebral body compression fractures. No axillary or supraclavicular adenopathy by size criteria. Thyroid gland is normal in size. Abdomen: Visualized upper abdominal solid organs and bowel loops appear normal in the absence of contrast. Multiple surgical clips are situated around the gastroesophageal junction. IMPRESSION: 1. Small to moderate dependent right pleural effusion is of uncertain etiology, causing right lung base compressive atelectasis. 2. Patchy airspace opacities within the superior segment of the right lower lobe , likely early pneumonia. 3. Prominent main pulmonary artery, consistent with background pulmonary arterial hypertension. Dictated by: Bobo Jenkins M.D. on 10/03/2016 at 18:37 Approved by: Bobo Jenkins M.D. on 10/03/2016 at 18:46 12-lead ECG Sinus Tachycardia, HR 108 Assessment & Plan Yolis Ornelas is a 55 year old morbidly obese female with a complex medical history including recent CVA x2, chronic respiratory failure secondary to COPD, obstructive asthma, CHF, type II diabetes mellitus, diabetic neuropathy, seizure disorder and bipolar disorder who presents with shortness of breath. Group A strep pyogenes bacteremia, acute, present on admission -Appreciate infectious disease consultation and will switch from Levaquin to IV Rocephin to cover this entity. -Additional blood cultures have been obtained and echocardiogram pending -The culture of her chronic left foot MTP ulcer shows group B strep agalactiae. Healthcare associated pneumonia. Present on admission, active She was hospitalized from July 23 - August 13 here for the same. Large autoimmune and fungal workup was done, essentially negative. Patient denies any aspiration. - Appreciate pulmonary consultation today and further recommendations will DC IV vancomycin and IV Zosyn and continue with Levaquin therapy. Patient has been switched to IV Rocephin for group A strep bacteremia and will continue with this as broad-spectrum antibiotic for possible pneumonia. - Blood cultures pending - Procalcitonin, sputum culture, urinary strep pneumonia and legionella antibodies, MRSA PCR and respiratory viral PCR were all nonsignificant. - Incentive Spiromter, Acapella and Chest Physiotherapy - CT of chest without contrast (Of note patient cannot tolerate IV contrast) shows small to moderate dependent right pleural effusion of uncertain etiology causing right lung base compressive atelectasis. Patchy airspace opacities with this. Segment of the right lower lobe, possible early pneumonia. Along with prominent main pulmonary artery consistent with background pulmonary arterial hypertension. COPD Exacerbation. Present on admission, active Likely secondary to pneumonia. Patient on oxygen at home usually 3L - Duoneb q4hwa - Budesonide BID - Given methylprednisolone in the ED. Continue Prednisone 40mg daily till 10/06/16 - Oxygen as needed - Monitor O2 sats Insulin-dependent diabetes mellitus with peripheral neuropathy. Uncontrolled On last admission, patient required morning lantus ranging from 25 - 50 units throughout her hospital stay and up to 15 units in the night. - Start conservatively with Lantus 15 units at night, 25 units in the morning - Lispro 5 units TIDAC - l high dose correctional Lispro algorithm - Adjust lantus accordingly -Blood sugars have been popping up into the 400s and we will go ahead and add nutritional subcutaneous Humalog with each meal. Hypokalemia, chronic Patient has chronic hypokalemia and on supplementation. Currently normal on admission. - Monitor on telemetry - Home potassium continued. Requests liquid potassium and not pill form or IV form of potassium. Constipation, Present on admission, Chronic Last Bowel movement 5 days prior to admission. No pain with examination at time of admission. Patient typically takes Miralax and dulcolax when constipated. - Miralax and dulcolax scheduled Restrictive lung disease secondary to obesity hypoventilation/KENAN, chronic. Presumed stable - Patient has own Trilogy for use History of seizures/Restless Leg syndrome, chronic. Presumed stable Patient mentions she's been working with outpatient doc to decrease medication use and has stopped Topamax. - Currently taking Lamotrigine 350mg BID. Mentions she's supposed to titrate to 300 mg BID 10/05/16 ADD, presumed stable - Continue Adderall BID (0830, 1500). - Resume home dosing of Vyvanse here Left plantar chronic skin ulcers - Wound care consulted to evaluate and treat foot ulcerations -Was cultured on October 06 and growing group B strep agalactiae Patient Status: Patient is admitted under inpatient status with expected length of stay greater than 2 midnights due to severity of presenting symptoms, risk of adverse event, and complexity of treatment plan. Resuscitation Status: DNR/DNI VTE Prophylaxis: Sub-Q Heparin (Unfractionated) VTE Mechanical Devices: Intermittant Pneumatic CD Resuscitation Status: DNR/DNI:Do Not Resuscitate/Intubate Time spent 20 minutes Laurence Aldridge MD Oct 05, 2016 16:07 <Electronically signed by Laurence Aldridge MD> 10/06/16 0651 Report status: Signed Transcribed by: ASHER 10/05/16 1607 REPORT#: [id number] VTE Prophylaxis: Sub-Q Heparin (Unfractionated) VTE Mechanical Devices: Venous Foot Pump Resuscitation Status: DNR/DNI:Do Not Resuscitate/Intubate Time spent 30 minutes Laurence Aldridge MD Oct 07, 2016 12:17
--- NOTE | 2016-10-07 14:29 | NUR ---
spiritual care: routine lengthy conversational visit. pt sifted through significant stressors she's experienced and described her coping which incudes supportive , medical literacy. she also expressed feeling overwhelmed at times with complexity of medicaitons, diagnosis and grief/trauma. prayer
--- NOTE | 2016-10-07 18:15 | PROG NOTE ---
[address] [address] PROGRESS NOTE PATIENT: JAILENE LOBATO : 1960 MR#: [id number] ADMIT: 10/02/2016 JOB ID: [id number] DATE: 10/07/2016 PROBLEM: Abnormal chest x-ray. SUBJECTIVE: The patient indicates she is feeling somewhat better than when she first presented with cough productive of green phlegm, as well as wheezing and some shortness of breath starting about a week or 10 days ago. She believes her breathing is a bit better. Believes the cough as well as the sputum production is decreasing. Overall feeling better but maybe 25% at most. Appetite is fair. Eating a bit. No pleuritic chest pain per se. OBJECTIVE: Temperature 36.7. The patient has been afebrile throughout her hospitalization. Pulse 85-104. Respiratory rate 18-22. Blood pressure 127/78. O2 sat on 3 L by nasal prongs is 97%. Currently wearing a Trilogy mask. Tidal volumes in the mid to high 500s. Awake, alert, speaking easily. Chest: Fair breath sounds bilaterally. Left lung is relatively clear. A few scattered crackles on the right. No use of accessory muscles. Heart: Regular rhythm. Heart tones normal. Abdomen is soft. Bowel tones present. Extremities: No pretibial edema. LABORATORY DATA: Shows a white count of 11,000, with normal differential. Hemoglobin stable at 12.4. Platelet count rising at 346,000. Sodium 139, potassium 3.9, chloride 94, CO2 is 26, BUN 33 and slowly rising. Creatinine 0.95 and relatively stable. Glucose moderately elevated, 262. Calcium is 9.2 with albumin of 4.2, total bilirubin 0.2. AST 17, ALT 19, alkaline phos normal at 83. Sputum culture shows only normal doyle present. Gram stain showed many polys with rare gram-positive Strep. Blood cultures subsequently grew group A strep. The blood drawn on October 02, 2016, at midnight being positive on October 05, 2016, approximately 51 hours after draw. Wound culture growing Staph aureus, as well as group B strep. CT scan of the chest shows a dense consolidation in the right lower lobe with some either pleural thickening or a bit of fluid with associated atelectasis at the base. When compared to study of July 31, 2016, there has been significant improvement in a dense consolidated infiltrate occupying the entire right lower lobe, as well as other portions of the lung including left. ASSESSMENT: Abnormal chest x-ray. To my eye, the CT scan seems to be significantly improved. Could conceivably be dealing with bronchitis. The patient is improving. Not sure that the current findings on the CT do not represent improvement from the prior, very abnormal CT, still resolving. Situation somewhat complicated by her multiple comorbidities, including asthma/chronic obstructive pulmonary disease, though lifelong nonsmoker, possible cerebrovascular accident, prior history of pneumonia, obesity hypoventilation syndrome, some reflux disease though improved, status post Jayce fundoplication, diabetes with diabetic neuropathy, soft tissue lesion of the right Achilles area, and past history of Clostridium difficile enterocolitis. Panoply of medications and morbidities makes definite associations difficult. Clinically, she looks reasonably well. For the moment. I would continue to follow her. Literature on Strep group A bacteremia suggests that the most common source of bacteremia with group A Strep is respiratory tract, with incidence approaching 80%. In addition, group A Strep pneumonia is associated with early and frequent association with the development of empyema. Alternatively, this may be all from her foot, as we are growing group B Strep along with Staph aureus in a diabetic foot that likely is polymicrobial. PLAN: 1. Continue current regimen of medications. 2. Infectious Disease consultation to obtain their thoughts.
--- NOTE | 2016-10-07 18:25 | NUR ---
Isolation/CBG Pt is now on C-ISO r/t pos foot wound cx. CBG were better this am and afternoon, 252 and 262, however before dinner cbg was 417. forgot to bring the humulin u500, but will bring in the am as this is pts home med and works better for managing pts blood sugars.
--- NOTE | 2016-10-07 20:35 | CONS ---
[address] [address] CONSULTATION REPORT PATIENT: JAILENE LOBATO : 1960 MR#: [id number] ADMIT: 10/02/2016 JOB ID: [id number] DATE OF SERVICE: 10/07/2016 REASON FOR CONSULT: Possible pulmonary infection in association with group A strep bacteremia. I thank Dr. Aldridge for this timely consult. HISTORY OF PRESENT ILLNESS: The patient is a complex 56-year-old woman well known to me from an admission earlier this year. She suffers from an extraordinary array of medical problems including apparent cerebrovascular disease, obesity, migraine headaches, seizure disorder, diabetes with neuropathy, frequent extremity infections, COPD requiring continual home O2 and multiple other medical problems. She was admitted here in July and, at that time, I saw her for persistent bilateral pulmonary infiltrates of unknown etiology. A large workup ensued including evaluation by Pulmonary, but no definitive cause for her pneumonitis was established. As an incidental finding, she developed some loose stools but was without toxicity and a stool C. diff was positive and she was treated for that process. Her loose stools were actually triggered by a laxative and it is likely that she was actually colonized rather than infected by toxin-producing strain but, in any event, she did receive a course of vancomycin. She was eventually discharged without any clear etiology for pneumonitis in the middle of August. She reports that following her discharge in mid August, she did relatively well until late August when she started to develop increasing shortness of breath over her already short of breath baseline, in association with a cough productive of some green, and then eventually brown, sputum. She notes that she is on home O2 and CPAP at home but even that did not seem to be enough to control her. She was using the Trilogy type device as well but still was having trouble with sleeping and with respiration. She was readmitted to this facility on October 02 and at that time she denied fevers, chills, nausea, vomiting or diarrhea. She, in fact, stated that she had developed constipation since resolution of the laxative-induced diarrhea during the last admission. In speaking further to the patient this afternoon, she has had no unusual exposures and is basically homebound. She has not had ill contacts or exposures that she is aware of. She notes that the productive sputum that brought her to this hospital has improved somewhat. It is also notable that during this admission she was complaining of a wound on her left plantar forefoot which has apparently been present for several weeks and has been treated by Dr. Cervantes [facility]. Dr. Cervantes has been doing debridements and wound changes on this persistent left foot wound which is not thought to be associated with any abscess or osteomyelitis. The patient notes that she is somewhat improved but, at this point, her main complaint is one of overwhelming fatigue. She is not having fever, chills per se and her respiratory status seems a bit better than when she came in, but she is tremendously weak, tired and does not feel capable of going home. I was contacted yesterday by telephone when I was out of town as the patient had a positive blood culture which came up rather late. This blood culture grew group A strep. Up until the moment of that positive blood culture, there had been plans to send her home on some oral levofloxacin for possible COPD exacerbation. When we found out about the positive blood culture, Dr. Aldridge and I discussed the case and decided to get a transthoracic echo and some additional blood cultures while we try to figure out what was going. PAST MEDICAL HISTORY: 1. CVA, 2017. 2. Obesity. 3. Bipolar disorder. 4. Migraine headaches. 5. Seizures. 6. DVT. 7. Diabetes mellitus: a. Severe neuropathy. b. Recurrent lower extremity infections. 8. Chronic obstructive pulmonary disease, home O2-dependent, and she currently uses Trilogy at home. 9. QTc prolongation. 10. History of Clostridium difficile colonization versus infection, August 2016. 11. Status post Jayce fundoplication. 12. Allergies to SULFA drugs and CEPHALOSPORINS and specifically CEFAZOLIN. SOCIAL HISTORY: The patient is a lifelong nonsmoker. Lives at home with her . She does not drink alcohol and is disabled and unemployed at this point. No recent travel. FAMILY HISTORY: Negative for TB in 1st or 2nd-degree relatives. REVIEW OF SYSTEMS: At this point, the patient has no significant headache beyond that of her chronic migraine-type headaches. No acute visual change. She denies any sore throat, though it has been dry and a bit raw perhaps from all the coughing she has been doing. No dysphagia or odynophagia. No stiff necks reported. She did have a productive cough which is one of the main reasons she came to the hospital in addition to shortness of breath. That is now largely improved. No substernal or pleuritic chest pain. No nausea or vomiting. She complains of constipation and certainly has no diarrhea. No notable dysuria. She has a chronic wound on her left foot which she thinks has been getting gradually better and she has been doing her own wound changes on a frequent basis. She also has a bumper scrape over her left knee due to a recent fall which is not giving her any problems, but which she keeps covered. Remainder of the review of systems is negative. PHYSICAL EXAMINATION: Reveals a very obese woman in no acute distress. Current temp 36.7, and she has been afebrile throughout this 5-1/2 day hospital stay. Pulse 95, respiratory rate 20, blood pressure 127/78, saturating well but using 3 L. she appears chronically ill but in no acute distress. Mental status is clear. Head without trauma. Eyes without conjunctivitis or scleral icterus. Nose normal. Oral cavity without thrush or pharyngitis. Neck: Has an almost cushingoid appearance to it. No adenopathy is noted. No tenderness in the neck. Lungs with decreased respiratory tones but no focal rales or rhonchi are heard. Respiratory are breath sounds are distant. Cardiac tones very distant but regular rate and rhythm. No significant murmur. Abdomen: Obese, soft, nontender without organomegaly. She does not currently have a Rincon catheter. Lower extremities are notable for a dressing placed over a lesion on her right knee which does not appear to be purulent at all. The left foot dressing was removed and it was carefully examined. There is about a 1 cm in diameter exophytic area present over the left medial forefoot. This area is mildly erythematous. No purulence can be expressed, and it does not seem to be tender. Neurologic exam is notable for the fact the patient's feet are basically insensate. She has motor strength in all four extremities but has a persistent gross tremor in the right upper extremity. No significant rash other than the ones to the lesions described on the left foot and right knee are noted. No evidence of synovitis is seen. At this point, the patient's mental status is clear, as noted. LABORATORIES: Include white count was 11,000 when she came in and it is still 11,000. Normal diff. Normal platelet count 346, creatinine 0.95. LFTs are normal. Albumin 4.2. Procalcitonin less than 0.1 as it was before, white blood cells in the urine 0-5. Serologic studies include negative IgE from last admission, negative ANCA from last admission, rheumatoid factor weakly positive. GREG screen was negative on last admission. Cryptococcal antigen negative. During her last admission. Micro studies include blood cultures, one of four bottles positive for group A strep which is, of course, penicillin susceptible but intermediate to clinda. Follow-up blood cultures were discussed but apparently never done. Sputum from admission showed many polys and some gram-positive cocci which resembled strep. A culture on that eventually showed normal doyle. Respiratory viral PCR panel was negative. Culture from the foot yielded Staph aureus, and we do not yet have susceptibilities on that as well as moderate growth of group B strep as distinct from the group A strep in her blood. IMAGING: Includes a chest CT which I went over with the pulmonary attending this afternoon. It shows small to moderate dependent right pleural effusion of unknown etiology. This actually appears perhaps better than during her last admission some two months ago. In addition, there is a patchy airspace opacity in the right lower lobe which also does not appear too severe. Evidence of pulmonary hypertension is also noted. An echocardiogram has already been done. It shows no obvious vegetations, but does show worsening right sided systolic pressures consistent with pulmonary hypertension. IMPRESSION: This is an incredibly complicated woman who was admitted basically for increased sputum production and shortness of breath. Sputum Gram stain was actually purulent and a few streptococcal type organisms were seen on the Gram stain but nothing grew. This would be a fairly typical story for perhaps a group A strep pneumonia and I wonder if that is what has transpired here. The patient's infiltrate is not terribly impressive and, if anything, it looks better than it did a couple of months ago, but I wonder if there is some degree of group A strep pneumonia going on here. Group A strep are notoriously difficult to recover from respiratory tract specimens, but we did recover from a blood culture which is of great interest. It is also possible that group A strep in her blood came from her foot, but we do not have any serious concerns about osteomyelitis and the wound infection on the foot actually has supposedly been improving for a couple of months rather than worsening. The foot wound, however, is colonized or perhaps infected with both group B strep and Staph aureus and we will need to know the susceptibilities before final antibiotic. RECOMMENDATIONS: 1. I would continue with the ceftriaxone overnight. 2. We await the susceptibilities on the Staph isolated from the foot though we presume it will be an MSSA as she is consistently MRSA negative including on this admission. 3. Without additional concern or evidence for group A strep endocarditis are without additional evidence or concern for group A strep endocarditis, I do not think we need to do much more in terms of ruling out endocarditis, but I would repeat two sets of blood cultures and so I will do that this evening. 4. Will continue to follow this complex patient with you but, hopefully, we can get her out of the hospital in the next couple of days.
[2016-10-07] MEDS: DULoxetine 30 mg DR Capsule PO SCH (21:41)
[2016-10-07] MEDS: ARIPiprazole 10 mg Tablet PO SCH (21:41)
[2016-10-07] MEDS: Codeine-APAP 30-300 mg Tablet PO PRN (21:42)
--- NOTE | 2016-10-07 22:26 | NUR ---
Medication Taper Per pt prozac and lamotrigine are being tapered. Pt states that tomorrow lamotrigine dose should be down to 300mg, and prozac down to 30mg. Not seen in notes, so will pass on to oncoming nurse to verify w/ pharmacist in the am.
[2016-10-07] MEDS ORDERED: HYDROmorphone 0.5 mg/0.5 mL iSecure Syringe IVPUSH PRN (23:25)
[2016-10-08] VITALS (10 sets, daily range): BP systolic 120–130; BP diastolic 74–77; PULSE 81–104; RESP 18–20; O2SAT 93–98
[2016-10-08] MEDS: Nystatin 100,000 Unit/Gm 15 Gm Powder TOPICAL SCH ×3 (00:06→21:18)
--- NOTE | 2016-10-08 06:41 | NUR ---
Anxiety (Assumed care around 2300) Pt very anxious and agitated, tearful around 2300,c/o bilateral legs pain 10/10, requested Dilaudid. Dr. Lin pagelaura, Dilaudid IV one time dose ordered, 0.5mg given, pain improved and pt settle down and sleep.
[2016-10-08] MEDS: Albuterol-Ipratropium 3 mL Inhalation Solution NEB SCH ×4 (07:32→19:46)
[2016-10-08] MEDS: Budesonide 0.5 mg/2 mL Inhalation Solution NEB SCH ×2 (07:32→19:46)
[2016-10-08] MEDS: Potassium Chloride 20 mEq/15 mL 15mL Oral Soln PO SCH ×2 (08:27→21:17)
[2016-10-08] MEDS: Insulin LISPRO 300 Unit/3 mL Inj SUBQ SCH ×4 (08:27→21:25)
[2016-10-08] MEDS: cefTRIAXone Inj 2,000 MG in Dextrose 5% Minibag Plus 50 ML IV SCH (08:27)
[2016-10-08] MEDS: guaiFENesin 600 mg ER12 Tablet PO SCH ×2 (08:28→21:16)
[2016-10-08] MEDS: [UNRECOGNIZED DRUG - OTHER] PO SCH ×4 (08:28→15:15)
[2016-10-08] MEDS: lamoTRIgine 100 mg Tablet PO SCH ×2 (08:29→21:17)
[2016-10-08] MEDS: FLUoxetine 4 mg/mL 118 mL Solution PO SCH (08:30)
[2016-10-08] MEDS: lamoTRIgine 25 mg Tablet PO SCH ×2 (08:30→21:17)
[2016-10-08] MEDS: Insulin GLARgine 100 Unit/mL Syringe SUBQ SCH ×2 (08:30→21:25)
[2016-10-08] MEDS: Heparin 5,000 Unit/mL Inj SUBQ SCH ×2 (08:31→17:40)
[2016-10-08] MEDS: Fluticasone 0.05% 15 Spray/2 Gm 16 Gm Nasal Spray NOSTRIL PRN ×2 (08:31→21:37)
--- NOTE | 2016-10-08 12:04 | PCM.PNMED ---
Subjective Date of Service Oct 08, 2016 Subjective Pulmonology Progress Note Yolis Ornelas is a 55 year old morbidly obese female with a complex medical history including recent CVA x2, chronic respiratory failure secondary to COPD, obstructive asthma, CHF, who presents with shortness of breath. Admitted for HCAP, group A Strep bacteremia, and asthma exacerbation. Today, she reports worsening weakness, shortness of breath, and difficulty with deep inspiration. She also reports ongoing mild nausea and bronchospastic cough. She reports chills overnight. She denies fevers, sputum production, vomiting, diarrhea, or other complaints at this time. Exam Vital Signs Vital Sign - Last Date Time Temp Pulse Resp B/P Pulse Ox O2 Delivery O2 Flow Rate FiO2 10/08/16 09:15 Supplement Oxygen 10/08/16 07:33 81 20 96 1.50 10/08/16 05:34 36.5 120/74 10/03/16 04:03 32 Intake and Output 10/07/16 10/07/16 10/08/16 Cumulative From/Thru 15:00 23:00 07:00 10/02/16 20:45 - 10/07/16 18:46 Intake Total 200 ml 1564 ml 45918 ml Output Total 1750 ml 3400 ml 60085 ml Balance -1550 ml -1836 ml -40778 ml Intake Oral 200 ml 1564 ml 08352 ml IV Total 2990 ml Output Urine Total 1750 ml 3400 ml 60658 ml # Bowel Movements 2 2 Exam General: Alert, Oriented X3, Cooperative, No acute distress Head: Normocephalic, atraumatic. External ears normal. Eyes: PERRLA, EOMI. Anicteric sclerae. Mouth: Mouth normal, Mucous membranes moist/pink Neck: Neck supple with full range of motion. Chest& Lungs: Right sided crackles, bilateral wheezes. Cardiovascular: Regular rate/rhythm, Normal S1, Normal S2, No murmurs/rubs/ gallops Abdomen: Obese. Non-tender, Non-distended, No masses, Normoactive bowel tones, Soft Musculoskeletal: Normal range of motion Extremities: No cyanosis/clubbing/edema bilaterally Neurological: Grossly neurologically intact. Normal speech Lab and Diagnostics Result Diagram: 10/07/16 0710 10/07/16 0710 X-Rays, CTs and MRIs PROCEDURE: X-RAY CHEST ONE VIEW, PORTABLE ([id number]) IMPRESSION: Persistent bibasilar pulmonary opacities right greater the left minimally improved since the previous study. Recommend radiographic followup to resolution. A chest CT with contrast may be needed to exclude underlying malignancy if this finding continues. Dictated by: Branden Hill M.D. on 10/02/2016 at 21:28 PROCEDURE: CT CHEST WITHOUT CONTRAST ([id number]) INDICATIONS: 56 year-old female with cough, right greater than left bibasilar pulmonary opacities on chest radiograph. TECHNIQUE: Noncontrast 5 mm thick sections acquired from the pulmonary apices to the posterior costophrenic angles. 7 mm thick coronal and sagittal MIP reformats were then acquired. For radiation dose reduction, the following was used: automated exposure control, adjustment of mA and/or kV according to patient size. COMPARISON: [facility], CR, XR CHEST 1VW (PORTABLE), 10/02/2016, 21: 01. [facility], CT, CT CHEST WO CON, 07/31/2016, 13:25. FINDINGS: Image quality: Excellent. Lungs and pleura: There is asymmetric small to moderate dependent right pleural effusion, with adjacent right lung base compressive atelectasis. Patchy airspace opacities are also present in the aerated superior portions of the right lower lobe. Left lung appears clear. No pneumothorax. Central airways appear patent and normal in caliber. Mediastinum: There is mild cardiomegaly. No pericardial effusion. No mediastinal adenopathy by size criteria. Thoracic aorta is normal in size. Main pulmonary artery is prominent in caliber at 3.7 cm diameter. Esophagus is normal in caliber. No hiatal hernia. Bones and chest wall: There is cervicothoracic spine posterior fixation hardware. Patient is status post T11 and T12 laminectomies. No suspicious bony lesions. No vertebral body compression fractures. No axillary or supraclavicular adenopathy by size criteria. Thyroid gland is normal in size. Abdomen: Visualized upper abdominal solid organs and bowel loops appear normal in the absence of contrast. Multiple surgical clips are situated around the gastroesophageal junction. IMPRESSION: 1. Small to moderate dependent right pleural effusion is of uncertain etiology, causing right lung base compressive atelectasis. 2. Patchy airspace opacities within the superior segment of the right lower lobe , likely early pneumonia. 3. Prominent main pulmonary artery, consistent with background pulmonary arterial hypertension. Dictated by: Bobo Jenkins M.D. on 10/03/2016 at 18:37 Approved by: Bobo Jenkins M.D. on 10/03/2016 at 18:46 12-lead ECG Sinus Tachycardia, HR 108 Assessment & Plan Yolis Ornelas is a 55 year old morbidly obese female with a complex medical history including recent CVA x2, chronic respiratory failure secondary to COPD, obstructive asthma, CHF, and obesity hypoventilation who presents with shortness of breath. Admitted for HCAP, group A Strep bacteremia, and COPD exacerbation. Group A strep pyogenes bacteremia, acute. - Likely secondary to HCAP, although sputum cultures have been negative. It is also possible that it originated from the foot wound, which grew MSSA and Group B Strep, and is likely multimicrobial. Will continue ceftriaxone and repeat blood cultures. Echocardiogram was negative for vegetations. Per Dr. Yen, there is no reason to further rule out endocarditis with STEFAN as long as repeat blood cultures are negative. Continue to monitor for signs of worsening infection or respiratory status as Group A Strep bacteremia is frequently associated with empyema. - Continue ceftriaxone 2g IV daily - Repeat blood cultures pending - Dr. Yen of Infectious Disease is also following. Healthcare associated pneumonia, acute. - Patient was hospitalized from July 23 - August 13 here for the same problem. Patient denies any aspiration. On review of the chest CT, her recent CT during this hospitalization is significantly improved compared to the previous CT on . Whereas the CT in July showed a dense consolidation occupying the entire right lower lobe and some of the left lung, the more recent CT showed a dense consolidation, but significantly improved since July. The right lower lobe findings may also represent compressive atelectasis secondary to right sided pleural effusion and/or obesity. Also present was a moderate right pleural effusion. Sputum cultures were negative. Given her Group A Strep bacteremia, the pneumonia may be Group A Strep, as 80% of Group A Strep bacteremia originates from a pulmonary source. However, given the improvement on CT compared to July 2016, it may simply be a resolving pneumonia from her prior hospitalization. She reports worsening shortness of breath and discomfort on deep inspiration. She states she had a productive cough, but has been unable to produce sputum over the last few days and has been feeling congested. She has been using the acapella, but does not have an incentive spirometer and denies receiving any chest physiotherapy. - Continue ceftriaxone 2g IV daily - Incentive spirometer - Acapella - Chest physiotherapy q4hwa directed at right lower lobe. - CXR in AM Asthma/COPD exacerbation, acute. - Patient has a history of asthma and/or COPD, but is a lifetime nonsmoker. Likely long-term asthmatic who developed a fixed defect on PFTs. Likely in exacerbation due to HCAP. - Continue Duoneb q4hwa - Budesonide nebulizer BID - Continue O2 by nasal cannula, wean as tolerated. VTE Prophylaxis: Sub-Q Heparin (Unfractionated) VTE Mechanical Devices: Intermittant Pneumatic CD Resuscitation Status: DNR/DNI:Do Not Resuscitate/Intubate Alfred Montgomery Oct 08, 2016 11:23
--- NOTE | 2016-10-08 12:15 | NUR ---
Inpatient Wound Nurse Patient has appointment at outpatient [facility] on Friday, 10/11, concerned that if she is inpatient, she will not be able to attend that appointment and feels that wound is deteriorating with increased drainage. Message was left by this CWON for Dr. Cervantes, making her aware of patient's admission and potential for missed appointment later in week. CWON offered to assist patient with dressing change. Patient stated that she had changed dressing yesterday and preferred no dressing change today. If Dr. Cervantes opts to see patient while she is here, patient stated she will change dressing at that time. Patient aware that CWON is available, prefers to maintain her independence with dressing changes; she was encouraged to call for CWON's assistance at any time during shift and she stated understanding.
--- NOTE | 2016-10-08 13:01 | PROG NOTE ---
[address] [address] PROGRESS NOTE PATIENT: JAILENE LOBATO : 1960 MR#: [id number] ADMIT: 10/02/2016 JOB ID: [id number] INFECTIOUS DISEASE FOLLOWUP: DATE: 10/08/2016 REASON FOR FOLLOWUP: Group A strep bacteremia with group B strep and MSSA infection, left forefoot. INTERVAL HISTORY: The patient reports overnight her breathing has been tight and she has been somewhat short of breath. She also notes some subjective chills during the night as well as generalized malaise. She does not have any significant productive cough however, and no nausea, vomiting or diarrhea. Her appetite has been poor. PHYSICAL EXAMINATION: Reveals an afebrile woman, temp 38.5, pulse 81, respiratory rate 20, blood pressure 120/74, saturating well on 1.5 L. She is in no acute distress. Examination of the eyes without abnormality. Oral cavity without thrush or pharyngitis. Lungs somewhat tight bilaterally but no overt wheezing or rales. Abdomen: Obese, soft, nontender. LABORATORY DATA: Labs include white count 93433, normal diff. Normal platelet count at 346. Creatinine is 0.95. LFTs normal. Last procalcitonin was 0.09; was basically a week ago. Micro studies now available include the blood cultures from the which grew group A strep surprisingly 1/4 bottles. The followup blood cultures are negative. The foot culture from October 06 grew MSSA as well as some group B strep. IMAGING DATA: No new imaging is available. Recall that CT of the chest, a week ago showed the pleural effusion and atelectasis and a patchy right-sided infiltrate which is actually better from the prior admission. IMPRESSION: This is a complicated patient who was admitted for shortness of breath. At this point, that seems to be improving but we are left with a group A Streptococcus bacteria in the blood and sputum from admission which showed on the Gram stain organisms consistent with strep, but which did not grow anything in particular. She also has a chronic wound on her left forefoot which has actually been healing over time but which is growing MSSA and group B Streptococcus from culture. I suspect that the patient may have some degree of underlying group A Streptococcus pneumonia which is being effectively treated of course with the ceftriaxone at this point. As to whether or not her foot is infected is a bit hard to tell as the wound is certainly completely unimpressive and I suspect this is just colonized. RECOMMENDATIONS: 1. I would continue with ceftriaxone for now. 2. We can discontinue isolation as there is no MRSA. 3. As the patient improves, we could consider transition to oral cephalosporin and discharge in the near future.
--- NOTE | 2016-10-08 14:15 | PCM.PNMED ---
Subjective Date of Service Oct 08, 2016 Subjective Patient feels a little bit more wheezing today. Exam Vital Signs Vital Sign - Last Date Time Temp Pulse Resp B/P Pulse Ox O2 Delivery O2 Flow Rate FiO2 10/08/16 13:53 36.9 102 18 130/74 94 Nasal Cannula 2.00 10/03/16 04:03 32 Intake and Output 10/07/16 10/07/16 10/08/16 Cumulative From/Thru 15:00 23:00 07:00 10/02/16 20:45 - 10/07/16 18:46 Intake Total 200 ml 1564 ml 55513 ml Output Total 1750 ml 3400 ml 80300 ml Balance -1550 ml -1836 ml -68831 ml Intake Oral 200 ml 1564 ml 60071 ml IV Total 2990 ml Output Urine Total 1750 ml 3400 ml 79867 ml # Bowel Movements 2 2 Exam Constitutional: Obese female in no acute distress Head: Normocephalic atraumatic Chest: Some scattered expiratory wheezes posteriorly Cor: Regular rate and rhythm S1-S2 Abdomen: Soft nontender bowel sounds present Extremity: No pedal edema Neuro: Alert and oriented 3, motor strength is intact bilaterally IVs and Medications Medications Reviewed: Medications were reviewed in detail Lab and Diagnostics Laboratory Tests 72 Hours Test 10/07/16 07:10 White Blood Count 11.0th/mm3 (3.8-10.1) Red Blood Count 4.21mil/mm3 (3.90-5.20) Hemoglobin 12.4g/dL (12.0-15.6) Hematocrit 38.4% (35.0-46.0) Mean Corpuscular Volume 91.2fL (81-100) Mean Corpuscular Hemoglobin 29.5pg (27.0-35.0) Mean Corpuscular Hemoglobin Concent 32.3% (32.0-37.0) Red Cell Distribution Width 15.5% (12.3-15.4) Platelet Count 346bil/L (150-400) Neutrophils (%) (Auto) 59.4% (40-74) Lymphocytes (%) (Auto) 27.3% (14-46) Monocytes (%) (Auto) 7.8% (4-12) Eosinophils (%) (Auto) 1.3% (0-5) Basophils (%) (Auto) 0.6% (0-3) Sodium Level 139mEq/L (134-144) Potassium Level 3.9mEq/L (3.5-5.2) Chloride Level 94mEq/L (97-108) Carbon Dioxide Level 26mmol/L (18-29) Blood Urea Nitrogen 33mg/dL (6-24) Creatinine 0.95mg/dL (0.57-1.00) Estimat Glomerular Filtration Rate 88mL/min (>59) Glucose Level 262mg/dL (60-99) Calcium Level 9.2mg/dL (8.5-10.1) Total Bilirubin 0.2mg/dL (0.0-1.2) Aspartate Amino Transf (AST/SGOT) 17U/L (0-50) Alanine Aminotransferase (ALT/SGPT) 19U/L (0-32) Alkaline Phosphatase 83U/L (25-150) Total Protein 6.5g/dL (6.4-8.4) Albumin 4.2g/dL (3.4-5.0) Result Diagram: 10/07/16 0710 10/07/16 0710 X-Rays, CTs and MRIs PROCEDURE: X-RAY CHEST ONE VIEW, PORTABLE ([id number]) IMPRESSION: Persistent bibasilar pulmonary opacities right greater the left minimally improved since the previous study. Recommend radiographic followup to resolution. A chest CT with contrast may be needed to exclude underlying malignancy if this finding continues. Dictated by: Branden Hill M.D. on 10/02/2016 at 21:28 PROCEDURE: CT CHEST WITHOUT CONTRAST ([id number]) INDICATIONS: 56 year-old female with cough, right greater than left bibasilar pulmonary opacities on chest radiograph. TECHNIQUE: Noncontrast 5 mm thick sections acquired from the pulmonary apices to the posterior costophrenic angles. 7 mm thick coronal and sagittal MIP reformats were then acquired. For radiation dose reduction, the following was used: automated exposure control, adjustment of mA and/or kV according to patient size. COMPARISON: [facility], CR, XR CHEST 1VW (PORTABLE), 10/02/2016, 21: 01. [facility], CT, CT CHEST WO CON, 07/31/2016, 13:25. FINDINGS: Image quality: Excellent. Lungs and pleura: There is asymmetric small to moderate dependent right pleural effusion, with adjacent right lung base compressive atelectasis. Patchy airspace opacities are also present in the aerated superior portions of the right lower lobe. Left lung appears clear. No pneumothorax. Central airways appear patent and normal in caliber. Mediastinum: There is mild cardiomegaly. No pericardial effusion. No mediastinal adenopathy by size criteria. Thoracic aorta is normal in size. Main pulmonary artery is prominent in caliber at 3.7 cm diameter. Esophagus is normal in caliber. No hiatal hernia. Bones and chest wall: There is cervicothoracic spine posterior fixation hardware. Patient is status post T11 and T12 laminectomies. No suspicious bony lesions. No vertebral body compression fractures. No axillary or supraclavicular adenopathy by size criteria. Thyroid gland is normal in size. Abdomen: Visualized upper abdominal solid organs and bowel loops appear normal in the absence of contrast. Multiple surgical clips are situated around the gastroesophageal junction. IMPRESSION: 1. Small to moderate dependent right pleural effusion is of uncertain etiology, causing right lung base compressive atelectasis. 2. Patchy airspace opacities within the superior segment of the right lower lobe , likely early pneumonia. 3. Prominent main pulmonary artery, consistent with background pulmonary arterial hypertension. Dictated by: Bobo Jenkins M.D. on 10/03/2016 at 18:37 Approved by: Bobo Jenkins M.D. on 10/03/2016 at 18:46 12-lead ECG Sinus Tachycardia, HR 108 Cardiac Echo Impressions Echocardiogram Report Name: YOLIS LOBATO EStudy Date : 10/07/2016 Height: 68 in Hospital Exam [facility] Weight: 25 0 lb Gender: Female BSA: 2.2 m2 : 1960 Age: 56 yrs BP: 121/73 mmHg Reason For Study: Endocarditis Ordering Physician: Colton Eli Performed By: Francine Fair Referring Physician: Dr. Reggie Mitchell Interpretation Summary The left ventricle is mildly dilated. The ejection fraction is estimated to be 60-65%. There has been no significant change in LV EF since the previous study. The right ventricle is grossly normal size. The right ventricular systolic function is normal. There is mild to moderate tricuspid regurgitation. Compared to the prior echo exam, there has been an increase in TR severity. Right ventricular systolic pressure is estimated to be 40 mmHg plus the clinically estimated CVP which cannot be estimated on this exam. Compared to the prior echo exam, there has been an increase in the severity of pulmonary hypertension. No obvious valvular vegetation seen. Consider STEFAN, if clinical suspicion for endocarditis is high. Assessment & Plan Yolis Lobato is a 55 year old morbidly obese female with a complex medical history including recent CVA x2, chronic respiratory failure secondary to COPD, obstructive asthma, CHF, and obesity hypoventilation who presents with shortness of breath. Admitted for HCAP, group A Strep bacteremia, and COPD exacerbation. Asthma/COPD exacerbation, acute. - Patient has a history of asthma and/or COPD, but is a lifetime nonsmoker. Likely long-term asthmatic who developed a fixed defect on PFTs. Likely in exacerbation due to HCAP. - Continue Duoneb q4hwa - Budesonide nebulizer BID - Continue O2 by nasal cannula, wean as tolerated. -She is having some wheezing and feeling a bit more tired today we will go ahead and do prednisone 20 mg by mouth daily 3 days Group A strep pyogenes bacteremia, acute, present on admission -Appreciate infectious disease consultation and will switch from Levaquin to IV Rocephin to cover this entity. -Additional blood cultures have been obtained and echocardiogram pending -The culture of her chronic left foot MTP ulcer shows group B strep agalactiae. Healthcare associated pneumonia. Present on admission, active She was hospitalized from July 23 - August 13 here for the same. Large autoimmune and fungal workup was done, essentially negative. Patient denies any aspiration. - Appreciate pulmonary consultation today and further recommendations will DC IV vancomycin and IV Zosyn and continue with Levaquin therapy. Patient has been switched to IV Rocephin for group A strep bacteremia and will continue with this as broad-spectrum antibiotic for possible pneumonia. - Blood cultures pending - Procalcitonin, sputum culture, urinary strep pneumonia and legionella antibodies, MRSA PCR and respiratory viral PCR were all nonsignificant. - Incentive Spiromter, Acapella and Chest Physiotherapy - CT of chest without contrast (Of note patient cannot tolerate IV contrast) shows small to moderate dependent right pleural effusion of uncertain etiology causing right lung base compressive atelectasis. Patchy airspace opacities with this. Segment of the right lower lobe, possible early pneumonia. Along with prominent main pulmonary artery consistent with background pulmonary arterial hypertension. Insulin-dependent diabetes mellitus with peripheral neuropathy. Uncontrolled On last admission, patient required morning lantus ranging from 25 - 50 units throughout her hospital stay and up to 15 units in the night. - Start conservatively with Lantus 15 units at night, 25 units in the morning - Lispro 5 units TIDAC - l high dose correctional Lispro algorithm - Adjust lantus accordingly -Blood sugars have been popping up into the 400s and we will go ahead and add nutritional subcutaneous Humalog with each meal. Hypokalemia, chronic Patient has chronic hypokalemia and on supplementation. Currently normal on admission. - Monitor on telemetry - Home potassium continued. Requests liquid potassium and not pill form or IV form of potassium. Constipation, Present on admission, Chronic Last Bowel movement 5 days prior to admission. No pain with examination at time of admission. Patient typically takes Miralax and dulcolax when constipated. - Miralax and dulcolax scheduled Restrictive lung disease secondary to obesity hypoventilation/KENAN, chronic. Presumed stable - Patient has own Trilogy for use History of seizures/Restless Leg syndrome, chronic. Presumed stable Patient mentions she's been working with outpatient doc to decrease medication use and has stopped Topamax. - Currently taking Lamotrigine 350mg BID. Mentions she's supposed to titrate to 300 mg BID 10/05/16 ADD, presumed stable - Continue Adderall BID (0830, 1500). - Resume home dosing of Vyvanse here Left plantar chronic skin ulcers - Wound care consulted to evaluate and treat foot ulcerations -Was cultured on October 06 and growing group B strep agalactiae Patient Status: Patient is admitted under inpatient status with expected length of stay greater than 2 midnights due to severity of presenting symptoms, risk of adverse event, and complexity of treatment plan. Resuscitation Status: DNR/DNI VTE Prophylaxis: Sub-Q Heparin (Unfractionated) VTE Mechanical Devices: Intermittant Pneumatic CD Resuscitation Status: DNR/DNI:Do Not Resuscitate/Intubate VTE Prophylaxis: Sub-Q Heparin (Unfractionated) VTE Mechanical Devices: Intermittant Pneumatic CD Resuscitation Status: DNR/DNI:Do Not Resuscitate/Intubate Time spent 30 minutes Laurence Aldridge MD Oct 08, 2016 14:15
[2016-10-08] MEDS: predniSONE 20 mg Tablet PO SCH (15:15)
[2016-10-08] MEDS: Codeine-APAP 30-300 mg Tablet PO PRN ×2 (15:32→21:24)
--- NOTE | 2016-10-08 16:42 | NUR ---
Social Work-readiness for discharge: Data:EMR Reviewed. Pt in on day 6 of hospitalization for Pneumonia per H&P. Pt is not medically stable for discharge anticipate 1-2 more days. ARMIN QUARLES involved, pt to continue on IV abx, but anticipates pt maybe able to switch to oral abx at discharge. Per RN notes, pt has been up independent in her room. Pt uses a fww at baseline and has home o2 and a trilogy for home use. Pt's to provide transport home when medically stable. SW will continue to follow. Assessment:Pt who is independent at baseline. Plan:Pt to discharge home when medically stable via POV. SW to follow for any IV abx needs, ARMIN QUARLES anticipates oral at discharge. SW will continue to follow. SVETLANA Roldan
--- NOTE | 2016-10-08 18:31 | NUR ---
Ambulation Pt on 2L NC satting in upper 90s%. Denies SOB with activity but appears to be SOB - breathing a little harder than when in bed. Pt has tremors in arms, uses cane when in room and FWW when walking around unit. Walked around unit w/ 2 Laps. SpO2 @ 90%. Visual minor SOB but steady on feet. Declined to have O2 when walking.
--- NOTE | 2016-10-08 18:35 | NUR ---
Blood Sugars/Glucose levels Pt Breakfast BG at 245, Lunch at 167, Dinner at 336. Administered Lantus and Lispro per scale as ordered. Pt family brought in home insulin Regular U-500, with sliding scale as taken at home. Was told to bring in by previous staff. paged about Insulin, but continuing to follow current regimen. Pt home insulin in med fur liner case of further review.
[2016-10-08] MEDS: ARIPiprazole 10 mg Tablet PO SCH (21:16)
[2016-10-08] MEDS: DULoxetine 30 mg DR Capsule PO SCH (21:17)
[2016-10-08] MEDS: Benzocaine-Menthol Lozenge 2/Pkg PO PRN (21:37)
--- NOTE | 2016-10-08 22:34 | PCM.PNMED ---
Subjective Date of Service Oct 08, 2016 Subjective 56 yo female with PMH of morbid obesity, CVA x2, chr resp failure due to COPD on 3L of home oxygen, CHF HFpEF, Pulm HTN, presented to the ED due to dyapnea. Based on her CXR of 10/02 she was treated with vanc, zosyn and levaquin. She was about to be discharged on 10/06 when 1/4 of blood cx retuned positive for strep pyogenes. ID was consulted and she was switched to ceftriaxone. She also has aL foot MTP ulcer cx from which grew group B strep agalactiae. This a.m. she complained of chest pain that started me midnight. Pain is over the left pectoralis muscle, reproducible with deep palpation and trunk rotation. She denies increased levels of dyspnea. Exam Vital Signs Vital Sign - Last Date Time Temp Pulse Resp B/P Pulse Ox O2 Delivery O2 Flow Rate FiO2 10/08/16 21:48 95 Nasal Cannula 1.50 10/08/16 20:37 37.1 101 18 124/77 10/03/16 04:03 32 Intake and Output 10/07/16 10/07/16 10/08/16 Cumulative From/Thru 15:00 23:00 07:00 10/02/16 20:45 - 10/07/16 18:46 Intake Total 200 ml 1564 ml 14600 ml Output Total 1750 ml 3400 ml 71935 ml Balance -1550 ml -1836 ml -37770 ml Intake Oral 200 ml 1564 ml 24740 ml IV Total 2990 ml Output Urine Total 1750 ml 3400 ml 87508 ml # Bowel Movements 2 2 Exam Constitutional: Obese female in no acute distress Head: Normocephalic atraumatic Chest: Some scattered expiratory wheezes posteriorly Cor: Regular rate and rhythm S1-S2 Abdomen: Soft nontender bowel sounds present Extremity: No pedal edema, she appears to be having some seepage on her dressings of left foot ulcer Neuro: Alert and oriented 3 Musculoskeletal: Palpable left pectoralis muscle tenderness, reproducible pain with trunk rotation IVs and Medications IV Fluids None Medications Reviewed: Medications were reviewed in detail Lab and Diagnostics Laboratory Tests Test 10/09/16 05:40 10/09/16 10:55 White Blood Count 12.1th/mm3 (3.8-10.1) Sodium Level 136mEq/L (134-144) Potassium Level 4.7mEq/L (3.5-5.2) Chloride Level 92mEq/L (97-108) Carbon Dioxide Level 25mmol/L (18-29) Blood Urea Nitrogen 30mg/dL (6-24) Creatinine 0.83mg/dL (0.57-1.00) Estimat Glomerular Filtration Rate 103mL/min (>59) Glucose Level 363mg/dL (60-99) Calcium Level 9.6mg/dL (8.5-10.1) Troponin T < 0.010ug/L (0.0-0.011) Urine Color Yellow (YELLOW) Urine Appearance Hazy (CLEAR,HAZY) Urine pH 6.0 (5.0-8.0) Urine Specific [place] 1.020 (1.003-1.035) Urine Protein Tracemg/dL (NEG,TRACE) Urine Glucose (UA) 1000mg/dL (NEGATIVE) Urine Ketones Negativemg/dL (NEGATIVE) Urine Occult Blood Negative (NEGATIVE) Urine Nitrite Negative (NEGATIVE) Urine Bilirubin Negative (NEGATIVE) Urine Urobilinogen Normalmg/dL (NORMAL) Urine Leukocyte Esterase Negative (NEGATIVE) Urine RBC 0-2/hpf (0-2) Urine WBC 0-5/hpf (0-5) Urine Epithelial Cells Occasional/hpf (NONE-MOD) Urine Crystals None seen (NONE SEEN) Urine Bacteria Moderate/hpf (NONE-FEW) Urine Hyaline Casts None/lpf (NONE) Urine Granular Casts None seen (NONE SEEN) Urine Waxy Casts None seen (NONE SEEN) Urine Red Blood Cell Casts None seen (NONE SEEN) Urine White Blood Cell Casts None seen (NONE SEEN) Urine Mucus None seen (None Seen) Urine Trichomonas None seen (NONE SEEN) Urine Yeast Few (NONE SEEN) Urinalysis Comment None Urine Culture Reflexed Indicated Microbiology 10/07/16 Blood Culture - Preliminary, Resulted No growth at 2 days; culture examined... 10/03/16 MRSA (PCR) - Final, Complete 10/09/16 Urine Culture, Received Pending 10/06/16 Gram Stain - Final, Resulted 10/06/16 Culture & Sensitivity - Preliminary, Resulted Staphylococcus Aureus Strep Agalactiae - (Group B) 10/06/16 Anaerobic Culture - Preliminary, Resulted Result Diagram: 10/07/16 0710 10/07/16 0710 X-Rays, CTs and MRIs PROCEDURE: X-RAY CHEST ONE VIEW, PORTABLE ([id number]) IMPRESSION: Persistent bibasilar pulmonary opacities right greater the left minimally improved since the previous study. Recommend radiographic followup to resolution. A chest CT with contrast may be needed to exclude underlying malignancy if this finding continues. Dictated by: Branden Hill M.D. on 10/02/2016 at 21:28 PROCEDURE: CT CHEST WITHOUT CONTRAST ([id number]) INDICATIONS: 56 year-old female with cough, right greater than left bibasilar pulmonary opacities on chest radiograph. TECHNIQUE: Noncontrast 5 mm thick sections acquired from the pulmonary apices to the posterior costophrenic angles. 7 mm thick coronal and sagittal MIP reformats were then acquired. For radiation dose reduction, the following was used: automated exposure control, adjustment of mA and/or kV according to patient size. COMPARISON: [facility], CR, XR CHEST 1VW (PORTABLE), 10/02/2016, 21: 01. [facility], CT, CT CHEST WO CON, 07/31/2016, 13:25. FINDINGS: Image quality: Excellent. Lungs and pleura: There is asymmetric small to moderate dependent right pleural effusion, with adjacent right lung base compressive atelectasis. Patchy airspace opacities are also present in the aerated superior portions of the right lower lobe. Left lung appears clear. No pneumothorax. Central airways appear patent and normal in caliber. Mediastinum: There is mild cardiomegaly. No pericardial effusion. No mediastinal adenopathy by size criteria. Thoracic aorta is normal in size. Main pulmonary artery is prominent in caliber at 3.7 cm diameter. Esophagus is normal in caliber. No hiatal hernia. Bones and chest wall: There is cervicothoracic spine posterior fixation hardware. Patient is status post T11 and T12 laminectomies. No suspicious bony lesions. No vertebral body compression fractures. No axillary or supraclavicular adenopathy by size criteria. Thyroid gland is normal in size. Abdomen: Visualized upper abdominal solid organs and bowel loops appear normal in the absence of contrast. Multiple surgical clips are situated around the gastroesophageal junction. IMPRESSION: 1. Small to moderate dependent right pleural effusion is of uncertain etiology, causing right lung base compressive atelectasis. 2. Patchy airspace opacities within the superior segment of the right lower lobe , likely early pneumonia. 3. Prominent main pulmonary artery, consistent with background pulmonary arterial hypertension. Dictated by: Bobo Jenkins M.D. on 10/03/2016 at 18:37 Approved by: Bobo Jenkins M.D. on 10/03/2016 at 18:46 12-lead ECG Sinus Tachycardia, HR 108 Cardiac Echo Impressions Echocardiogram Report Name: YOLIS LOBATO EStudy Date : 10/07/2016 Height: 68 in Hospital Exam Location: [facility] Weight: 25 0 lb Gender: Female BSA: 2.2 m2 : 1960 Age: 56 yrs BP: 121/73 mmHg Reason For Study: Endocarditis Ordering Physician: Colton Eli Performed By: Francine Fair Referring Physician: Dr. Reggie Mitchell Interpretation Summary The left ventricle is mildly dilated. The ejection fraction is estimated to be 60-65%. There has been no significant change in LV EF since the previous study. The right ventricle is grossly normal size. The right ventricular systolic function is normal. There is mild to moderate tricuspid regurgitation. Compared to the prior echo exam, there has been an increase in TR severity. Right ventricular systolic pressure is estimated to be 40 mmHg plus the clinically estimated CVP which cannot be estimated on this exam. Compared to the prior echo exam, there has been an increase in the severity of pulmonary hypertension. No obvious valvular vegetation seen. Consider STEFAN, if clinical suspicion for endocarditis is high. Assessment & Plan Yolis Lobato is a 55 year old morbidly obese female with a complex medical history including recent CVA x2, chronic respiratory failure secondary to COPD, obstructive asthma, CHF, and obesity hypoventilation who presents with shortness of breath. Admitted for HCAP, group A Strep bacteremia, and COPD exacerbation. Asthma/COPD exacerbation, acute. Improving - Patient has a history of asthma and/or COPD, but is a lifetime nonsmoker. Likely long-term asthmatic who developed a fixed defect on PFTs. Likely in exacerbation due to HCAP. - Continue Duoneb q4hwa - Budesonide nebulizer BID - Continue O2 by nasal cannula, wean as tolerated. - prednisone 20 mg by mouth daily 3 days -- Xopenex 3 times a day when necessary -- Robitussin-DM for cough Group A strep pyogenes bacteremia, acute, present on admission -Appreciate infectious disease consultation and will switch from Levaquin to IV Rocephin to cover this entity. -Additional blood cultures have been obtained and echocardiogram showed worsened TR, EF 60-65%, increased pulm HTN at 40 mmHg but no endocarditis. --Blood cultures have been no growth to date -- Discussed discharge antibiotics with Dr. Yen. Discharging patient home on 10/10 Left pectoralis muscle spasm acute -- Flexeril 10 mg twice a day when necessary Chronic Left Foot MTP Ulcer poa -The culture of her chronic left foot MTP ulcer shows group B strep agalactiae. Healthcare associated pneumonia. Present on admission, active She was hospitalized from July 23 - August 13 here for the same. Large autoimmune and fungal workup was done, essentially negative. Patient denies any aspiration. - Appreciate pulmonary consultation. IV vancomycin and IV Zosyn are discontinued and Levaquin was continued. Patient has been switched to IV Rocephin for group A strep bacteremia and will continue with this as broad- spectrum antibiotic for possible pneumonia. - Procalcitonin, sputum culture, urinary strep pneumonia and legionella antibodies, MRSA PCR and respiratory viral PCR were all nonsignificant. - Incentive Spiromter, Acapella and Chest Physiotherapy - CT of chest without contrast (Of note patient cannot tolerate IV contrast) shows small to moderate dependent right pleural effusion of uncertain etiology causing right lung base compressive atelectasis. Patchy airspace opacities with this. Segment of the right lower lobe, possible early pneumonia. Along with prominent main pulmonary artery consistent with background pulmonary arterial hypertension. -- Pulmonology was consulted and did recommend "Recommend chest CT in 6 weeks to document further resolution of her pneumonia.:" Insulin-dependent diabetes mellitus with peripheral neuropathy. Uncontrolled On last admission, patient required morning lantus ranging from 25 - 50 units throughout her hospital stay and up to 15 units in the night. - Start conservatively with Lantus 15 units at night, 25 units in the morning - Lispro 5 units TIDAC is not being enough. Increased to 15 units TIDAC, she needed an additional 8 units in the evening of 8/9 - l high dose correctional Lispro algorithm - Adjust lantus accordingly Hypokalemia, chronic Patient has chronic hypokalemia and on supplementation. Currently normal on admission. - Monitor on telemetry - Home potassium continued. Requests liquid potassium and not pill form or IV form of potassium. Constipation, Present on admission, Chronic Last Bowel movement 5 days prior to admission. No pain with examination at time of admission. Patient typically takes Miralax and dulcolax when constipated. - Miralax and dulcolax scheduled Restrictive lung disease secondary to obesity hypoventilation/KENAN, chronic. Presumed stable - Patient has own Trilogy for use History of seizures/Restless Leg syndrome, chronic. Presumed stable Patient mentions she's been working with outpatient doc to decrease medication use and has stopped Topamax. - Currently taking Lamotrigine 350mg BID. Mentions she's supposed to titrate to 300 mg BID 10/05/16 ADD, presumed stable - Continue Adderall BID (0830, 1500). - Resume home dosing of Vyvanse here Left plantar chronic skin ulcers -Wound care consulted to evaluate and treat foot ulcerations -Was cultured on October 06 and growing group B strep agalactiae Patient Status: Patient is admitted under inpatient status with expected length of stay greater than 2 midnights due to severity of presenting symptoms, risk of adverse event, and complexity of treatment plan. Resuscitation Status: DNR/DNI VTE Prophylaxis: Sub-Q Heparin (Unfractionated) VTE Mechanical Devices: Intermittant Pneumatic CD Resuscitation Status: DNR/DNI:Do Not Resuscitate/Intubate Pain Evaluation: Adequate Pain Control VTE Prophylaxis: Sub-Q Heparin (Unfractionated) VTE Mechanical Devices: Intermittant Pneumatic CD Resuscitation Status: DNR/DNI:Do Not Resuscitate/Intubate Time spent 25 min Brianna Hagen DO Oct 08, 2016 22:29
[2016-10-09] VITALS (9 sets, daily range): BP systolic 115–161; BP diastolic 73–96; PULSE 59–105; RESP 18–20; O2SAT 93–98
[2016-10-09] MEDS: Heparin 5,000 Unit/mL Inj SUBQ SCH ×3 (00:28→16:43)
--- NOTE | 2016-10-09 03:05 | NUR ---
Blood Glucose Blood glucose check at 0300: 400. Pt states last eating [place] at evening. Dr. Riley moseley, waiting response. Addendum: 10/09/16 at 0332 by DENI PEREZ RN No response from night hospitalist at this time. Will fill pink communication sheet to report to day hospitalist that pt blood glucose high (395 at HS, 400 at 0300) and may need increase Insulin dose. Her home med Humulin R U 500 stored in pharmacy which is "3 times more strength" per pt.
--- NOTE | 2016-10-09 03:08 | NUR ---
Cloudy Urine/Lamotrigine Pt reports "cloudy urine", her urine usually "clear" "not like this", some urinary discomfort. Urine visualized: light eileen,slightly cloudy,1000ml in container. Pt currently on scheduled Rocephin (Broad spectrum ABX). Encourage pt increase oral fluids. Pt stated at pm 10/08/2016: the dose of Lamotrigine (for seizures) should be titrated to 300mg from 350mg Bid according to her Seizure MD. She agreed to take the current ordered dose 350mg at pm. Will fill pink communication sheet report to day hospitalist regarding above conditions, encourage pt to talk with MD when morning rounds.
[2016-10-09] MEDS: Codeine-APAP 30-300 mg Tablet PO PRN ×4 (04:02→23:30)
[2016-10-09] MEDS: Albuterol-Ipratropium 3 mL Inhalation Solution NEB SCH ×4 (07:22→20:12)
[2016-10-09] MEDS: Budesonide 0.5 mg/2 mL Inhalation Solution NEB SCH ×2 (07:23→20:12)
[2016-10-09] MEDS: cefTRIAXone Inj 2,000 MG in Dextrose 5% Minibag Plus 50 ML IV SCH (08:53)
[2016-10-09] MEDS: FLUoxetine 4 mg/mL 118 mL Solution PO SCH (08:54)
[2016-10-09] MEDS: lamoTRIgine 100 mg Tablet PO SCH ×2 (08:54→19:53)
[2016-10-09] MEDS: [UNRECOGNIZED DRUG - OTHER] PO SCH ×4 (08:54→15:35)
[2016-10-09] MEDS: predniSONE 20 mg Tablet PO SCH (08:55)
[2016-10-09] MEDS: guaiFENesin 600 mg ER12 Tablet PO SCH ×2 (08:55→19:53)
[2016-10-09] MEDS: lamoTRIgine 25 mg Tablet PO SCH (08:55)
[2016-10-09] MEDS: Insulin GLARgine 100 Unit/mL Syringe SUBQ SCH ×2 (08:56→21:43)
[2016-10-09] MEDS: Potassium Chloride 20 mEq/15 mL 15mL Oral Soln PO SCH ×2 (08:56→19:53)
[2016-10-09] MEDS: Nystatin 100,000 Unit/Gm 15 Gm Powder TOPICAL SCH ×2 (08:57→19:52)
[2016-10-09] MEDS: Insulin LISPRO 300 Unit/3 mL Inj SUBQ SCH ×4 (08:57→21:44)
--- NOTE | 2016-10-09 10:54 | NUR ---
Chest Pressure/Pain: Patient complained of a mid chest pressure and left upper lateral chest stabbing pain that "come and goes". EKG obtained. VSS. SOB, O2 1.5L 95% O2 sat. notified. Addendum: 10/09/16 at 1844 by YULIET BOLAÑOS RN Continue to have pressure. Troponin negative, no EKG changes noted. Will report off to [facility].
--- NOTE | 2016-10-09 10:57 | PROG NOTE ---
[address] [address] PROGRESS NOTE PATIENT: JAILENE LOBATO : 1960 MR#: [id number] ADMIT: 10/02/2016 JOB ID: [id number] DATE: 10/09/2016 INFECTIOUS DISEASE FOLLOW UP NOTE: REASON FOR FOLLOWUP: Group A strep bacteremia as well as left foot infection in a patient with multiple underlying medical problems. INTERVAL HISTORY: Overnight, the patient tells me she has had subjective chills as well as sweats and this morning has substernal chest pressure which she states has been there for several hours. This has been accompanied perhaps by some increase in her baseline shortness of breath but that is not so clear. She also states her abdomen feels distended and she has poor appetite though she is having regular bowel movements. She has minimal cough and perhaps some right pleuritic chest pain. PHYSICAL EXAMINATION: Temperature 36.6, pulse 59, respiratory rate 18, blood pressure 123/73. She is saturating reasonably well on 1.5 L. She appears to be in mild distress as she often does. Eyes without conjunctivitis. Oral cavity negative. Lungs with distant breath sounds. Some crackles at the right base. Cardiac tones: Regular rate and rhythm this morning without new murmur. Abdomen: Distended, soft and nontender. No skin rash noted. LABORATORIES: Include white blood count 12,000, basically normal differential on that when it was last checked two days ago. No differential was ordered apparently on today's white count or it is not available yet. In any event, blood sugar 363 this morning. Creatinine 0.83. LFTs normal. Albumin 4.2. Micro studies include the single positive blood culture for group A strep on admission October 02. Follow up blood cultures October 07 are negative at 48 hours. The foot culture from the chronic wound on the foot grew MSSA as well as group B strep. IMAGING: Most recent imaging includes a chest x-ray, which I reviewed today which shows what I interpret as improving right-sided infiltrate but there is no official radiographic reading yet. Recall that the CT scan which was now done almost a week ago showed right-sided pleural effusion with atelectasis as well as some possible right-sided lower lobe pneumonia. IMPRESSION: This continues to be a confusing case of a woman with multiple underlying serious medical problems including diabetes with severe neuropathy, recurrent lower extremity infections and severe COPD. She was admitted with a series of issues, one of which has been persistent shortness of breath and cough. I had been concerned that she may have a group A strep pneumonia as she did have a slow to resolve right-sided infiltrate which even dates back to a prior admission to this facility. The possibility of group A strep pneumonia with or without a small effusion or empyema has been part of the differential diagnosis and overall I would say she seems to be slowly improving on ceftriaxone, but she continues to say she is not nearly ready for discharge and continues to have subjective fevers as well as chills as well as sweats. Other concerns here include today's report of chest pain. RECOMMENDATIONS: 1. Continue with ceftriaxone as a sole antibiotic for now. 2. We await the final radiologist's interpretation of today's chest x-ray. 3. I have ordered an EKG to be done now. 4. Will notify the hospitalist that the patient is having ongoing chest pain which I suspect is noncardiac but nonetheless should be re-evaluated. 5. The patient's mild leukocytosis is of no great concern as I think it is due to her steroids, but we need to continue to investigate the possibility of an inadequately treated infection in this complex patient.
--- NOTE | 2016-10-09 10:59 | NUR ---
Inpatient Wound Nurse Patient seen by RISHI, offered support and wound care. Patient stated that she is hoping Dr. Cervantes will stop in today. She does not want to take down LLE dressing until/if Dr. Cervantes sees her today, and then her plan is to shower before putting on new dressing for which she has supplies and can and wants to do herself. Patient shared that she is discouraged with slow improvement, both of foot wound and pneumonia, stated that she expects Dr. Cervantes will debride wound, remove callous, which she is aware will increase size and acuity of wound. Patient was encouraged to remain positive until Dr. Cervantes gives her more specific information. [facility] availability was made known to her, as well as supplies and resources. Patient stated understanding of information provided. RISHI will check on patient tomorrow and encourage dressing change if she has not completed this independently yet. Wound Center aware of patient's hospital admission and potential to miss appointment later this week.
[2016-10-09 12:32] LABS: APPEARANCE,URINE HAZY (CLEAR,HAZY); COLOR,URINE YELLOW (YELLOW)
[2016-10-09 12:33] LABS: OCCULT BLOOD,URINE NEGATIVE (NEGATIVE); UROBILINOGEN,URINE NORMAL (NORMAL); YEAST,URINE FEW (NONE SEEN)
--- NOTE | 2016-10-09 13:40 | DRSVH ---
PROCEDURE: X-RAY CHEST ONE VIEW, PORTABLE ([id number]) INDICATIONS: SHORT OF BREATH, pneumonia TECHNIQUE: One view of the chest was acquired. COMPARISON: [facility], CR, XR CHEST 1VW (PORTABLE), 10/02/2016, 21:01. FINDINGS: Surgical changes and devices: Cervical thoracic fixation hardware redemonstrated. Lungs and pleura: Trace right pleural effusion and no pneumothorax. Lungs are clear, aside from air space opacity involving the right lung base.. Mediastinum: Mediastinal contours appear normal. Heart size is normal. Bones and chest wall: No suspicious bony lesions. Overlying soft tissues appear unremarkable. IMPRESSION: Trace right pleural effusion and right basilar airspace opacity redemonstrated suggestive of compressive atelectasis versus aspiration or pneumonia. Dictated by: Elio Bell [facility] Interpreted: Suleman Penny MD on 10/09/2016 at 10:21 Approved by: Suleman Penny M.D. on 10/09/2016 at 13:38
--- NOTE | 2016-10-09 15:18 | PCM.PNMED ---
Subjective Date of Service Oct 09, 2016 Subjective Pulmonology Progress Note Yolis Lobato is a 55 year old morbidly obese female with a complex medical history including recent CVA x2, chronic respiratory failure secondary to COPD, obstructive asthma, CHF, who presents with shortness of breath. Admitted for HCAP, group A Strep bacteremia, and asthma exacerbation. Overnight, the patient complained of chest pressure in the middle and upper left chest, described as an intermittent stabbing pain. EKG was normal and troponin was negative. She has been coughing up minimal brown sputum, and reports continuing chills and continuing shortness of breath but denies any change in these symptoms, or any other new symptoms. Exam Vital Signs Vital Sign - Last Date Time Temp Pulse Resp B/P Pulse Ox O2 Delivery O2 Flow Rate FiO2 10/09/16 13:47 36.7 105 20 161/96 93 Nasal Cannula 1.50 10/03/16 04:03 32 Intake and Output 10/08/16 10/08/16 10/09/16 Cumulative From/Thru 15:00 23:00 07:00 10/02/16 20:45 - 10/09/16 06:51 Intake Total 1435 ml 2090 ml 1400 ml 92543 ml Output Total 1325 ml 2400 ml 1775 ml 01905 ml Balance 110 ml -310 ml -375 ml -40941 ml Intake Oral 1350 ml 2090 ml 46721 ml IV Total 85 ml 3075 ml TPN/PPN 1400 ml 1400 ml Output Urine Total 1325 ml 2400 ml 1775 ml 36592 ml # Bowel Movements 3 5 Exam General: Alert, Oriented X3, Cooperative, No acute distress Head: Normocephalic, atraumatic. External ears normal. Eyes: PERRLA, EOMI. Anicteric sclerae. Mouth: Mouth normal, Mucous membranes moist/pink Neck: Neck supple with full range of motion. Chest& Lungs: Right sided crackles, bilateral wheezes. Cardiovascular: Regular rate/rhythm, Normal S1, Normal S2, No murmurs/rubs/ gallops Abdomen: Obese. Non-tender, Non-distended, No masses, Normoactive bowel tones, Soft Musculoskeletal: Normal range of motion Extremities: No cyanosis/clubbing/edema bilaterally Neurological: Normal speech. Intention tremor noted. Lab and Diagnostics Result Diagram: 10/09/1653910/09/16539 X-Rays, CTs and MRIs PROCEDURE: X-RAY CHEST ONE VIEW, PORTABLE ([id number]) IMPRESSION: Persistent bibasilar pulmonary opacities right greater the left minimally improved since the previous study. Recommend radiographic followup to resolution. A chest CT with contrast may be needed to exclude underlying malignancy if this finding continues. Dictated by: Branden Hill M.D. on 10/02/2016 at 21:28 PROCEDURE: CT CHEST WITHOUT CONTRAST ([id number]) INDICATIONS: 56 year-old female with cough, right greater than left bibasilar pulmonary opacities on chest radiograph. TECHNIQUE: Noncontrast 5 mm thick sections acquired from the pulmonary apices to the posterior costophrenic angles. 7 mm thick coronal and sagittal MIP reformats were then acquired. For radiation dose reduction, the following was used: automated exposure control, adjustment of mA and/or kV according to patient size. COMPARISON: [facility], CR, XR CHEST 1VW (PORTABLE), 10/02/2016, 21: 01. [facility], CT, CT CHEST WO CON, 07/31/2016, 13:25. FINDINGS: Image quality: Excellent. Lungs and pleura: There is asymmetric small to moderate dependent right pleural effusion, with adjacent right lung base compressive atelectasis. Patchy airspace opacities are also present in the aerated superior portions of the right lower lobe. Left lung appears clear. No pneumothorax. Central airways appear patent and normal in caliber. Mediastinum: There is mild cardiomegaly. No pericardial effusion. No mediastinal adenopathy by size criteria. Thoracic aorta is normal in size. Main pulmonary artery is prominent in caliber at 3.7 cm diameter. Esophagus is normal in caliber. No hiatal hernia. Bones and chest wall: There is cervicothoracic spine posterior fixation hardware. Patient is status post T11 and T12 laminectomies. No suspicious bony lesions. No vertebral body compression fractures. No axillary or supraclavicular adenopathy by size criteria. Thyroid gland is normal in size. Abdomen: Visualized upper abdominal solid organs and bowel loops appear normal in the absence of contrast. Multiple surgical clips are situated around the gastroesophageal junction. IMPRESSION: 1. Small to moderate dependent right pleural effusion is of uncertain etiology, causing right lung base compressive atelectasis. 2. Patchy airspace opacities within the superior segment of the right lower lobe , likely early pneumonia. 3. Prominent main pulmonary artery, consistent with background pulmonary arterial hypertension. Dictated by: Bobo Jenkins M.D. on 10/03/2016 at 18:37 Approved by: Bobo Jenkins M.D. on 10/03/2016 at 18:46 12-lead ECG Sinus Tachycardia, HR 108 Cardiac Echo Impressions Echocardiogram Report Name: YOLIS LOBATO EStudy Date : 10/07/2016 Height: 68 in Hospital Exam Location: [facility] Weight: 25 0 lb Gender: Female BSA: 2.2 m2 : 1960 Age: 56 yrs BP: 121/73 mmHg Reason For Study: Endocarditis Ordering Physician: Colton Eli Performed By: Francine Fair Referring Physician: Dr. Reggie Mitchell Interpretation Summary The left ventricle is mildly dilated. The ejection fraction is estimated to be 60-65%. There has been no significant change in LV EF since the previous study. The right ventricle is grossly normal size. The right ventricular systolic function is normal. There is mild to moderate tricuspid regurgitation. Compared to the prior echo exam, there has been an increase in TR severity. Right ventricular systolic pressure is estimated to be 40 mmHg plus the clinically estimated CVP which cannot be estimated on this exam. Compared to the prior echo exam, there has been an increase in the severity of pulmonary hypertension. No obvious valvular vegetation seen. Consider STEFAN, if clinical suspicion for endocarditis is high. Assessment & Plan Yolis Lobato is a 55 year old morbidly obese female with a complex medical history including recent CVA x2, chronic respiratory failure secondary to COPD, obstructive asthma, CHF, and obesity hypoventilation who presents with shortness of breath. Admitted for HCAP, group A Strep bacteremia, and COPD exacerbation. Group A strep pyogenes bacteremia, acute. - Likely secondary to HCAP, although sputum cultures have been negative. It is also possible that it originated from the foot wound, which grew MSSA and Group B Strep, and is likely multimicrobial. Will continue ceftriaxone and repeat blood cultures. Echocardiogram was negative for vegetations. Per Dr. Yen, there is no reason to further rule out endocarditis with STEFAN as long as repeat blood cultures are negative. Continue to monitor for signs of worsening infection or respiratory status as Group A Strep bacteremia is frequently associated with empyema. - Continue ceftriaxone 2g IV daily - Repeat blood cultures show no growth to date - Dr. Yen of Infectious Disease is also following. Healthcare associated pneumonia, acute. - As previously discussed, this is likely a resolving process from her previous hospitalization for pneumonia in July, and may also represent compressive atelectasis due to her body habitus and right sided pleural effusion. Sputum cultures were negative. Suspicion for Group A Strep pneumonia given her Group A Strep bacteremia. She reports new sharp chest pain, with negative EKG and troponin. This is likely not related to a cardiac process, and likely related to the pneumonia. She should have follow up imaging in about 6 weeks to document further resolution of her pneumonia. - Continue ceftriaxone 2g IV daily - Incentive spirometer - Acapella - Recommend chest CT in 6 weeks to document further resolution of her pneumonia. - We will sign off for now. Thank you for this interesting consult. Please do not hesitate to contact us with further questions. Asthma/COPD exacerbation, acute. - Patient has a history of asthma and/or COPD, but is a lifetime nonsmoker. Likely long-term asthmatic who developed a fixed defect on PFTs. Likely in exacerbation due to HCAP. - Continue Duoneb q4hwa - Budesonide nebulizer BID - Continue O2 by nasal cannula, wean as tolerated. VTE Prophylaxis: Sub-Q Heparin (Unfractionated) VTE Mechanical Devices: Intermittant Pneumatic CD Resuscitation Status: DNR/DNI:Do Not Resuscitate/Intubate Alfred Montgomery Oct 09, 2016 15:18
--- NOTE | 2016-10-09 16:51 | NUR ---
BG: Hua BG 491. insulin administered 27u. MD notified. Will follow. Addendum: 10/09/16 at 1843 by YULIET BOLAÑOS RN MD order received for additional 8u Lispro. Recheck of BG 417. 8u Lispro administered. Will report to ZENOBIA simon.
[2016-10-09] MEDS ORDERED: Insulin LISPRO 300 Unit/3 mL Inj SUBQ ONE (17:00)
[2016-10-09] MEDS: DULoxetine 30 mg DR Capsule PO SCH (19:53)
[2016-10-09] MEDS: ARIPiprazole 10 mg Tablet PO SCH (19:53)
[2016-10-10] VITALS (9 sets, daily range): BP systolic 111–131; BP diastolic 66–72; PULSE 78–99; RESP 18–20; O2SAT 90–99
[2016-10-10] MEDS: Heparin 5,000 Unit/mL Inj SUBQ SCH ×3 (01:31→17:03)
[2016-10-10] MEDS: Ondansetron 2 mg/mL 2 mL Inj IVPUSH PRN ×2 (03:54→06:04)
--- NOTE | 2016-10-10 04:45 | NUR ---
Nausea Pt awoke with nausea approx 0330. Asked for a blood sugar check to see if she could have saltine crackers. BG was down, yet still over 200. Nausea relieved with a cracker and zofran. Will continue to monitor.
[2016-10-10] MEDS: Albuterol-Ipratropium 3 mL Inhalation Solution NEB SCH ×4 (06:00→23:15)
--- NOTE | 2016-10-10 06:19 | NUR ---
SOB/Chest Pain Approx 0550 Pt awoke to SOB, difficulty breathing, and heavy crushing pressure on center of chest, 9/10 pain, radiating to left shldr. 95% on 2.5L NC. RT and charge nurse called and at bedside, physician paged. Stat EKG ordered, returned normal. Shortness of breath improved, but still feels "tight" and "heavy". This feeling is unlike symptoms she has experienced previously. Patient continues to be closely monitored.
[2016-10-10] MEDS ORDERED: 0.9% Sodium Chloride 250 ML ONE (08:36)
[2016-10-10] MEDS: cefTRIAXone Inj 2,000 MG in Dextrose 5% Minibag Plus 50 ML IV SCH (08:49)
[2016-10-10] MEDS: [UNRECOGNIZED DRUG - OTHER] PO SCH ×4 (08:52→14:55)
[2016-10-10] MEDS: Insulin GLARgine 100 Unit/mL Syringe SUBQ SCH (08:52)
[2016-10-10] MEDS: guaiFENesin 600 mg ER12 Tablet PO SCH ×2 (08:53→21:44)
[2016-10-10] MEDS: Potassium Chloride 20 mEq/15 mL 15mL Oral Soln PO SCH ×2 (08:53→21:40)
[2016-10-10] MEDS: FLUoxetine 4 mg/mL 118 mL Solution PO SCH (08:53)
[2016-10-10] MEDS: predniSONE 20 mg Tablet PO SCH (08:53)
[2016-10-10] MEDS: lamoTRIgine 100 mg Tablet PO SCH ×2 (08:53→21:37)
[2016-10-10] MEDS: Insulin LISPRO 300 Unit/3 mL Inj SUBQ SCH ×4 (08:54→21:40)
[2016-10-10] MEDS: Nystatin 100,000 Unit/Gm 15 Gm Powder TOPICAL SCH ×2 (08:55→21:38)
--- NOTE | 2016-10-10 11:05 | NUR ---
Inpatient Wound Nurse Patient seen for update of LLE wound. Patient stated that Dr. Cervantes debrided her wound and wound bed is granulating and no further pus or drainage was observed. Patient stated that her wound care regimen is unchanged and she dressed wound after her shower yesterday following Dr. Cervantes's visit. Patient requested additional felt so that she could continue making offloading C, which RISHI RN provided. Patient stated that she hoped to go home today, does not want to stay for further cardiac work-up. She understands that her [facility] appointment scheduled for tomorrow has been cancelled as Dr. Cervantes saw her in-house. Her appointment for next week is scheduled. RISHI will continue to offer assistance while patient is here although she is independent in wound care.
[2016-10-10] MEDS: Budesonide 0.5 mg/2 mL Inhalation Solution NEB SCH ×2 (11:31→23:15)
[2016-10-10] MEDS: Codeine-APAP 30-300 mg Tablet PO PRN (12:07)
--- NOTE | 2016-10-10 12:11 | PROG NOTE ---
[address] [address] PROGRESS NOTE PATIENT: JAILENE LOBATO : 1960 MR#: [id number] ADMIT: 10/02/2016 JOB ID: [id number] DATE: 10/10/2016 INFECTIOUS DISEASE FOLLOWUP NOTE: REASON FOR FOLLOWUP: Probable group A strep respiratory tract infection. INTERVAL HISTORY: The patient reports that she 1continues to have intermittent chest pain which is substernal and tight. This has been evaluated and is felt not to be cardiac, though a nonexertional stress test has been ordered to make absolutely certain this pain is not cardiac. She tells me she also has mild restriction of respiratory excursion with some bilateral pleuritic chest pain with deep inspiration. No significant fevers, chills, or sweats have been noted. She has minimal cough. No new abdominal complaint. PHYSICAL EXAMINATION: Reveals a woman in minimal to no distress at this time. Temperature 36.6; she has been consistently afebrile. Pulse 99, respiratory rate 20, blood pressure 122/70. She is saturating 96% on room air. Examination of the oral cavity is unremarkable. Lungs with decreased breath sounds throughout, but especially at the bases. Cardiac tones without new murmur. The patient's abdomen is obese, difficult to examine, but apparently nontender. LABORATORIES: Last labs include a white count yesterday of 12,000. Yesterday's troponins were negative. LFTs have been normal. Urinalysis yesterday: No white cells. Micro studies include the single positive blood culture for group A strep on admission and a followup culture of the foot which yielded group B strep and MSSA. All other cultures have been negative. Chest x-ray was reviewed and I compared it to prior films. It still shows a small right pleural effusion with airspace opacity which could be atelectasis, pneumonia, or aspiration. I am also concerned that she could be a manifestation of a group A strep empyema, but if so it is extraordinarily small on chest x-ray and nonprogressive. IMPRESSION: This patient has underlying diabetes, neuropathy, and chronic obstructive pulmonary disease. She is admitted with shortness of breath and cough, and a single blood culture grew group A strep. I still wonder whether she may have a group A strep pneumonia and/or conceivably very small empyema, but there is little we could do to prove that at this point given the very small and relatively asymptomatic nature of the fluid collection. RECOMMENDATION: 1. Continue ceftriaxone for now. 2. Probable discharge tomorrow if stress test normal. 3. Discharge antibiotic might reasonably include Keflex 500 q.i.d. to complete an additional six days or so of therapy to finish out two weeks of treatment. 4. This case discussed with Dr. Hagen in person. Thank you very much.
--- NOTE | 2016-10-10 13:06 | NUR ---
Social Work-readiness for discharge: Data:EMR Reviewed. Pt in on day 8 of hospitalization for Pneumonia per H&P. Pt is not medically stable for discharge anticipate 1-2 more days. ARMIN QUARLES involved, pt to continue on IV abx, but anticipates pt maybe able to switch to oral abx at discharge. Per RN notes, pt has been up independent in her room. test tech also involved and pt will [facility], pt already established there for care. Pt uses a fww at baseline. Pt also has home O2 and a trilogy for home use. Pt's to provide transport home when medically stable. SW will continue to follow. Assessment:Pt who is independent at baseline. Plan:Pt to discharge home when medically stable via POV. ARMIN QUARLES anticipates oral abx at discharge. No other SW needs identified. SW will continue to follow. SVETLANA Roldan
--- NOTE | 2016-10-10 16:28 | NUR ---
Pain/Activity/Stress Test: Patient complains of baseline 8/10 leg pain, 4/10 shoulder pain. Tylenol w/ codeine and Flexeril administered. On reassessment, patient states leg pain decreased to 6/10. Continues to complain of chest pressure 5/10. Morphine administered. Patient now resting w/eyes closed, wearing Trilogy, HR 91, RR regular and O2 sats 92%. MD aware of ongoing chest pressure. Scheduled for Stress Test in am. Discussed NPO status after MN and no caffeine x24hrs. Patient unhappy about not being able to drink soda. Attempted to offer different selection of drinks. Patient turned back on this RN and wouldn't speak any longer.
[2016-10-10] MEDS ORDERED: Insulin GLARgine 100 Unit/mL Syringe SUBQ SCH (21:00)
[2016-10-10] MEDS: DULoxetine 30 mg DR Capsule PO SCH (21:36)
[2016-10-10] MEDS: ARIPiprazole 10 mg Tablet PO SCH (21:37)
[2016-10-10] MEDS: Fluticasone 0.05% 15 Spray/2 Gm 16 Gm Nasal Spray NOSTRIL PRN (21:45)
--- NOTE | 2016-10-10 22:08 | PCM.PNMED ---
Subjective Date of Service Oct 10, 2016 Subjective Patient is seen and examined. She complained of chest pain again this morning, states pain is worse on the left side. She appears that she did not get her Flexeril on time, they did help when she did get it. She continues to complain of chest pain in the setting of increased dyspnea. I discussed her high risk profile for cardiac disease, and the need for a stress test. She says her last stress test was in 2003, expressed her willingness to go through the test. Exam Vital Signs Vital Sign - Last Date Time Temp Pulse Resp B/P Pulse Ox O2 Delivery O2 Flow Rate FiO2 10/10/16 21:23 36.4 90 20 112/66 97 Nasal Cannula 2.50 Intake and Output 10/09/16 10/09/16 10/10/16 Cumulative From/Thru 15:00 23:00 07:00 10/02/16 20:45 - 10/10/16 06:28 Intake Total 3063 ml 1060 ml 62844 ml Output Total 2400 ml 1500 ml 79006 ml Balance 663 ml -440 ml -55999 ml Intake Oral 3063 ml 59248 ml IV Total 3075 ml TPN/PPN 1060 ml 2460 ml Output Urine Total 2400 ml 1500 ml 51917 ml # Bowel Movements 5 Exam Constitutional: Obese female in no acute distress Head: Normocephalic atraumatic Chest: Some scattered expiratory wheezes posteriorly Cor: Regular rate and rhythm S1-S2 Abdomen: Soft nontender bowel sounds present Extremity: No pedal edema Neuro: Alert and oriented 3 Musculoskeletal: Pectoralis tenderness has improved IVs and Medications Medications Reviewed: Medications were reviewed in detail Lab and Diagnostics Result Diagram: 10/09/16 0540 10/09/16 0540 X-Rays, CTs and MRIs PROCEDURE: X-RAY CHEST ONE VIEW, PORTABLE ([id number]) IMPRESSION: Persistent bibasilar pulmonary opacities right greater the left minimally improved since the previous study. Recommend radiographic followup to resolution. A chest CT with contrast may be needed to exclude underlying malignancy if this finding continues. Dictated by: Branden Hill M.D. on 10/02/2016 at 21:28 PROCEDURE: CT CHEST WITHOUT CONTRAST ([id number]) INDICATIONS: 56 year-old female with cough, right greater than left bibasilar pulmonary opacities on chest radiograph. TECHNIQUE: Noncontrast 5 mm thick sections acquired from the pulmonary apices to the posterior costophrenic angles. 7 mm thick coronal and sagittal MIP reformats were then acquired. For radiation dose reduction, the following was used: automated exposure control, adjustment of mA and/or kV according to patient size. COMPARISON: [facility], CR, XR CHEST 1VW (PORTABLE), 10/02/2016, 21: 01. [facility], CT, CT CHEST WO CON, 07/31/2016, 13:25. FINDINGS: Image quality: Excellent. Lungs and pleura: There is asymmetric small to moderate dependent right pleural effusion, with adjacent right lung base compressive atelectasis. Patchy airspace opacities are also present in the aerated superior portions of the right lower lobe. Left lung appears clear. No pneumothorax. Central airways appear patent and normal in caliber. Mediastinum: There is mild cardiomegaly. No pericardial effusion. No mediastinal adenopathy by size criteria. Thoracic aorta is normal in size. Main pulmonary artery is prominent in caliber at 3.7 cm diameter. Esophagus is normal in caliber. No hiatal hernia. Bones and chest wall: There is cervicothoracic spine posterior fixation hardware. Patient is status post T11 and T12 laminectomies. No suspicious bony lesions. No vertebral body compression fractures. No axillary or supraclavicular adenopathy by size criteria. Thyroid gland is normal in size. Abdomen: Visualized upper abdominal solid organs and bowel loops appear normal in the absence of contrast. Multiple surgical clips are situated around the gastroesophageal junction. IMPRESSION: 1. Small to moderate dependent right pleural effusion is of uncertain etiology, causing right lung base compressive atelectasis. 2. Patchy airspace opacities within the superior segment of the right lower lobe , likely early pneumonia. 3. Prominent main pulmonary artery, consistent with background pulmonary arterial hypertension. Dictated by: Bobo Jenkins M.D. on 10/03/2016 at 18:37 Approved by: Bobo Jenkins M.D. on 10/03/2016 at 18:46 12-lead ECG Sinus Tachycardia, HR 108 Cardiac Echo Impressions Echocardiogram Report Name: YOLIS LOBATO EStudy Date : 10/07/2016 Height: 68 in Hospital Exam Location: [facility] Weight: 25 0 lb Gender: Female BSA: 2.2 m2 : 1960 Age: 56 yrs BP: 121/73 mmHg Reason For Study: Endocarditis Ordering Physician: Colton Eli Performed By: Francine Fair Referring Physician: Dr. Reggie Mitchell Interpretation Summary The left ventricle is mildly dilated. The ejection fraction is estimated to be 60-65%. There has been no significant change in LV EF since the previous study. The right ventricle is grossly normal size. The right ventricular systolic function is normal. There is mild to moderate tricuspid regurgitation. Compared to the prior echo exam, there has been an increase in TR severity. Right ventricular systolic pressure is estimated to be 40 mmHg plus the clinically estimated CVP which cannot be estimated on this exam. Compared to the prior echo exam, there has been an increase in the severity of pulmonary hypertension. No obvious valvular vegetation seen. Consider STEFAN, if clinical suspicion for endocarditis is high. Assessment & Plan Yolis Lobato is a 55 year old morbidly obese female with a complex medical history including recent CVA x2, chronic respiratory failure secondary to COPD, obstructive asthma, CHF, and obesity hypoventilation who presents with shortness of breath. Admitted for HCAP, group A Strep bacteremia, and COPD exacerbation. Chest Pressure, ongoing for 3 days -- Pt has repeatedly c/p chest pressure and associated dyspnea, was treated for COPD and pectoralis muscle spasm -- No overnight tele events, no new EKG findings. -- Given her high risk for cardiac disease and no recent stress, we will go ahead a order a pharmacological stress test for tomorrow am. I discussed this extensively with pt, she wants to undergo a stress test. Asthma/COPD exacerbation, acute. Improving - Patient has a history of asthma and/or COPD, but is a lifetime nonsmoker. Likely long-term asthmatic who developed a fixed defect on PFTs. Likely in exacerbation due to HCAP. - Continue Duoneb q4hwa - Budesonide nebulizer BID - Continue O2 by nasal cannula, wean as tolerated. - prednisone 20 mg by mouth daily 3 days Group A strep pyogenes bacteremia, acute, present on admission -Appreciate infectious disease consultation and will switch from Levaquin to IV Rocephin to cover this entity. -Additional blood cultures have been obtained and echocardiogram showed worsened TR, EF 60-65%, increased pulm HTN at 40 mmHg but no endocarditis. --Blood cultures have been no growth to date -- Discussed discharge antibiotics with Dr. Yen. -- "Discharge antibiotic might reasonably include Keflex 500 q.i.d. to complete an additional six days or so of therapy to finish out two weeks of treatment." Left pectoralis muscle spasm acute -- Flexeril 10 mg tid prn when necessary Chronic Left Foot MTP Ulcer poa -The culture of her chronic left foot MTP ulcer shows group B strep agalactiae. Healthcare associated pneumonia. Present on admission, active She was hospitalized from July 23 - August 13 here for the same. Large autoimmune and fungal workup was done, essentially negative. Patient denies any aspiration. - Appreciate pulmonary consultation. IV vancomycin and IV Zosyn are discontinued and Levaquin was continued. Patient has been switched to IV Rocephin for group A strep bacteremia and will continue with this as broad- spectrum antibiotic for possible pneumonia. - Procalcitonin, sputum culture, urinary strep pneumonia and legionella antibodies, MRSA PCR and respiratory viral PCR were all nonsignificant. - Incentive Spiromter, Acapella and Chest Physiotherapy - CT of chest without contrast (Of note patient cannot tolerate IV contrast) shows small to moderate dependent right pleural effusion of uncertain etiology causing right lung base compressive atelectasis. Patchy airspace opacities with this. Segment of the right lower lobe, possible early pneumonia. Along with prominent main pulmonary artery consistent with background pulmonary arterial hypertension. -- Pulmonology was consulted and did recommend "Recommend chest CT in 6 weeks to document further resolution of her pneumonia.:" Insulin-dependent diabetes mellitus with peripheral neuropathy. Uncontrolled - Lantus 30 units at night, 30 units in the morning - Increased Humalog to 20 units TIDAC - l high dose correctional Lispro algorithm Hypokalemia, chronic Patient has chronic hypokalemia and on supplementation. Currently normal on admission. - Monitor on telemetry - Home potassium continued. Requests liquid potassium and not pill form or IV form of potassium. Constipation, Present on admission, Chronic Last Bowel movement 5 days prior to admission. No pain with examination at time of admission. Patient typically takes Miralax and dulcolax when constipated. - Miralax and dulcolax scheduled Restrictive lung disease secondary to obesity hypoventilation/KENAN, chronic. Presumed stable - Patient has own Trilogy for use History of seizures/Restless Leg syndrome, chronic. Presumed stable Patient mentions she's been working with outpatient doc to decrease medication use and has stopped Topamax. - Currently taking Lamotrigine 350mg BID. Mentions she's supposed to titrate to 300 mg BID 10/05/16 ADD, presumed stable - Continue Adderall BID (0830, 1500). - Resume home dosing of Vyvanse here Left plantar chronic skin ulcers -Wound care consulted to evaluate and treat foot ulcerations -Was cultured on October 06 and growing group B strep agalactiae Seizure d/o chronic stable -- On 10/10 patient asked me to change her lamotrigine 2 300 mg daily, review of records on next gen from , it appears that she is actually on 400 mg per his latest prescription, pharmacy verified this dose -- We will discuss with patient on 10/11 Chronic depression stable -- Patient has asked on 10/10 to adjust her Prozac dose to 30 mg, this has been done -- Verified with pharmacy that this is her current dose Patient Status: Patient is admitted under inpatient status with expected length of stay greater than 2 midnights due to severity of presenting symptoms, risk of adverse event, and complexity of treatment plan. Patient will be discharged home if stress test is clear on 10/11 Resuscitation Status: DNR/DNI VTE Prophylaxis: Sub-Q Heparin (Unfractionated) VTE Mechanical Devices: Intermittant Pneumatic CD Resuscitation Status: DNR/DNI:Do Not Resuscitate/Intubate Pain Evaluation: Pain not Controlled VTE Prophylaxis: Sub-Q Heparin (Unfractionated) VTE Mechanical Devices: Intermittant Pneumatic CD Resuscitation Status: DNR/DNI:Do Not Resuscitate/Intubate Time spent 30 minutes Brianna Hagen DO Oct 10, 2016 22:07
[2016-10-11 00:27] VITALS: PULSE 84
[2016-10-11] MEDS: Heparin 5,000 Unit/mL Inj SUBQ SCH ×2 (01:41→09:18)
--- NOTE | 2016-10-11 02:46 | NUR ---
Pain/ Activity Patient A&OX3 and pleasant this evening. Continues to complain of chest pressure, and is aware of cardiac stress test in the am. Tele reports SR 84. Complains of 8/10 bilateral leg and 5/10 right shoulder pain. Did not request pain medication until 0000. 1mg morphine IVP, and 10mg flexeril PO given. Upon reassessment patient is sleeping and appears comfortable. Patient has been NPO since 0000 and has not received any caffeine. Trilogy and MANAGER FORMS worn as patient sleeps; 02 sats have been maintaining > 92%. Bed is locked/low position, and call light is within reach. Will continue to monitor and continue Q1 hour checks.
[2016-10-11 05:11] VITALS: PULSE 86
[2016-10-11 05:13] VITALS: BP 100/61; PULSE 80; RESP 20; O2SAT 94
[2016-10-11] MEDS: Insulin LISPRO 300 Unit/3 mL Inj SUBQ SCH ×2 (08:00→13:46)
[2016-10-11 08:23] VITALS: PULSE 80; RESP 18; O2SAT 97
[2016-10-11] MEDS: Albuterol-Ipratropium 3 mL Inhalation Solution NEB SCH ×2 (08:23→12:30)
[2016-10-11] MEDS: Budesonide 0.5 mg/2 mL Inhalation Solution NEB SCH (08:23)
[2016-10-11] MEDS ORDERED: Insulin GLARgine 100 Unit/mL Syringe SUBQ SCH (08:30)
[2016-10-11 08:53] VITALS: BP 109/66; PULSE 88; RESP 18; O2SAT 96
[2016-10-11] MEDS: predniSONE 20 mg Tablet PO SCH (09:16)
[2016-10-11] MEDS: FLUoxetine 4 mg/mL 118 mL Solution PO SCH (09:21)
[2016-10-11] MEDS: Potassium Chloride 20 mEq/15 mL 15mL Oral Soln PO SCH (09:21)
[2016-10-11] MEDS: lamoTRIgine 100 mg Tablet PO SCH (09:21)
[2016-10-11] MEDS: [UNRECOGNIZED DRUG - OTHER] PO SCH ×4 (09:22→15:22)
[2016-10-11] MEDS: Nystatin 100,000 Unit/Gm 15 Gm Powder TOPICAL SCH (09:23)
--- NOTE | 2016-10-11 09:44 | NUR ---
Off unit for stress test
[2016-10-11 12:33] VITALS: BP 149/68; PULSE 105; RESP 20; O2SAT 94
--- NOTE | 2016-10-11 13:20 | NUR ---
Inpatient Wound Nurse Patient seen for update of LLE wound. Patient stated that she can manage dressing change independently and did not require assistance today. She requested no supplies and thought that she may be discharged today. She is aware that her appointment for next [facility]. [facility] will continue to offer assistance while patient is here although she is independent in wound care.
--- NOTE | 2016-10-11 13:42 | PROG NOTE ---
[address] [address] PROGRESS NOTE PATIENT: JAILENE LOBATO : 1960 MR#: [id number] ADMIT: 10/02/2016 JOB ID: [id number] INFECTIOUS DISEASE FOLLOWUP: DATE: 10/11/2016 REASON FOR FOLLOWUP: Group A strep bacteremia in a patient with pulmonary infection. INTERVAL HISTORY: Overnight, the patient has had a bad headache but he has been free of fevers, chills, or sweats. She reports her breathing is at or better than her baseline and she has minimal cough without pleuritic chest pain. Today, she underwent a cardiac stress test and the results are pending. PHYSICAL EXAMINATION: Reveals a tremulous, afebrile woman sitting up in bed. Temp 36.7, pulse 105, respiratory rate 20, blood pressure 149/68. She is saturating well on 2.5 L. She is in no acute distress. Mental status clear. Lungs with very few crackles at the right base, and her air movement is substantially improved over the last few days diffusely and no other notable abnormalities. LABORATORY DATA: No new chemistries available. No new white count available. Review of the cultures shows just the group B strep and MSSA, which was isolated from her left foot chronic wound and group A strep that was found in a single blood culture. IMAGING: No new imaging is available. IMPRESSION: From an Infectious Disease point of view, the patient could be discharged at any time. She has had adequate therapy for group A streptococcus pulmonary infection and this treatment has also overlapped somehow with treatment of her foot. RECOMMENDATIONS: 1. I would continue ceftriaxone as long as she is in the hospital. 2. She could go home today or tomorrow per ID. 3. Discharge antibiotic would be Keflex 500 four times a day, to finish out a two week course of therapy which would take her through about five more days. 4. ID will go ahead and sign off at this time.
--- NOTE | 2016-10-11 13:44 | DRSVH ---
PROCEDURE: 1 DAY PHARMACOLOGICAL STRESS TEST Rest and pharmacological stress myocardial perfusion SPECT with gated imaging and ejection fraction RADIOPHARMACEUTICAL: 10.5 mCi Tc-99m tetrafosmin IV at rest and 31.0 mCi Tc-99m tetrafosmin IV at pe ak effect of pharmacological stress. A tld-whr-gvaswsta was performed. INDICATIONS: CHEST PAIN. TECHNIQUE: Radiopharmaceutical was injected at peak stress test, and also at rest. SPECT images wer e obtained. SPECT myocardial perfusion images were displayed in short axis, horizontal long axis, an d vertical long axis views. Gated images were reviewed using [employer] software. COMPARISON: None. CARDIAC STRESS: A pharmacologic stress test was performed under the supervision of an attending staff, using an infus ion of Lexiscan (0.4 mg/5 mL). Hemodynamic data: There is normal blood pressure and heart rate response to pharmacologic stress. Symptoms: The patient reported moderate chest pressure, headaches, flushing and nausea with pharmaco logic stress. Aminophylline: 10.0 mg/4.0 mL administered intravenously at termination of study. EKG: No diagnostic changes of ischemia; no ectopy. FINDINGS: Raw data: There is good myocardial uptake of radiotracer. No significant motion artifacts. Left ventricle function: Gated images demonstrate normal left ventricular wall thickening. No segme ntal wall motion abnormalities. No subjective evidence of transient ischemic dilation. Left ventric le resting end diastolic volume is 84 mL. Left ventricle stress ejection fraction is 79%; normal ran ge is above 45%. Myocardial perfusion: There is normal distribution of activity in the right and left ventricular loco cardium. No fixed or reversible perfusion defects. IMPRESSION: 1. Normal myocardial perfusion study with no fixed or reversible perfusion defects. 2. Normal left ventricular function with no segmental wall motion abnormalities and normal stress LVE F of 79%. 3. Normal hemodynamic response to pharmacologic stress. PQRS ATTESTATIONS: Measure 322 - Is this imaging test primarily performed on a low-risk surgery patient for preoperative evaluation within 30 days preceding their low-risk non-cardiac surgery? Low-risk surgery is defined as cardiac or myocardial infarction less than 1%, including (but not limited to) endoscopic pr ocedures, superficial procedures, cataract surgery, and excisional breast surgery: Answer: No Measure 323 - Is this imaging test performed primarily for the monitoring of an asymptomatic patient who had percutaneous coronary intervention on the visit date or within 2 years of the visit date? An swer: No Measure 324 - Is this imaging test performed primarily for the initial detection and risk assessment on an asymptomatic, low coronary heart disease patient? Low CHD risk definition = clinicians should consider the maximum number of available patient factors used to estimate risk based on Hamilton (A TP III criteria), typically age, gender, diabetes, smoking status, and use of blood pressure medicati on, and integrate age appropriate estimates for missing elements, such as LDL or standard blood press ure. Answer: No Dictated by: Nadia Casey MD, PhD on 10/11/2016 at 13:35 Approved by: Nadia Casey MD, PhD on 10/11/2016 at 13:43
[2016-10-11] MEDS: guaiFENesin 600 mg ER12 Tablet PO SCH (13:47)
[2016-10-11] MEDS ORDERED: INSU100I18 SUBQ (14:07)
[2016-10-11] MEDS ORDERED: INSU100V7 SUBQ (14:08)
[2016-10-11] MEDS ORDERED: CEPH-512 PO ×2 (14:10→22:49)
[2016-10-11] MEDS ORDERED: FLUO10TA PO (14:18)
[2016-10-11] MEDS ORDERED: INSU500V SUBQ (14:46)
[2016-10-11] MEDS ORDERED: INSLIS SUBQ (14:46)
--- NOTE | 2016-10-11 15:05 | NUR ---
Social Work: Discharge Data: Pt is on day 9 of hospitalization. EMR reviewed. Pt discussed in rounds. D/C orders are in. No d/c planning needs at this time. Pt will continue home O2 through [facility], and has a trilogy and FWW at home. No further d/c planning needs at this time. POLE INSPECTOR will continue to follow if needs arise. Assessment: Pt with caregiving at baseline, currently not capable of self care. Plan: Pt will d/c home today via POV with spouse. No d/c planning needs. Pt's spouse is caregiving, pt uses FWW at baseline. POLE INSPECTOR will continue to follow if needs arise. SVETLANA Oliver
[2016-10-11] MEDS: cefTRIAXone Inj 2,000 MG in Dextrose 5% Minibag Plus 50 ML IV SCH (15:22)
[2016-10-11] MEDS ORDERED: Fluticasone 0.05% 15 Spray/2 Gm 16 Gm Nasal Spray NOSTRIL SCH (17:00)
[2016-10-11] MEDS ORDERED: Nystatin 100,000 Unit/Gm 15 Gm Powder TOPICAL SCH (17:00)
--- NOTE | 2016-10-11 17:50 | NUR ---
Discharge IV discontinued fully intact. All personal belongings given to patient. medications that were held in pharmacy given to patient. discharge instructions explained to patient who verbalizes understanding and agrees to plan of care. Brought down to personal car via wc.
--- NOTE | 2016-10-11 22:46 | PCM.DC.MED ---
Discharge Summary Date of Service Oct 11, 2016 Dates of Hospitalization Date of Hospital Admission Oct 02, 2016 at 23:47 Date of Discharge: Oct 11, 2016 Providers: Admitting Physician: Ne Lin DO Primary Care Physician: Kevin Mitchell MD Attending Physician: Brianna Ching DO Diagnosis at Time of Discharge Diagnosis at Time of Discharge Hcap, strep A bacteremia, foot ulcer, chest pain, Consultations Pulmonary, infectious disease Procedures XRay, CTs & MRIs PROCEDURE: X-RAY CHEST ONE VIEW, PORTABLE ([id number]) IMPRESSION: Persistent bibasilar pulmonary opacities right greater the left minimally improved since the previous study. Recommend radiographic followup to resolution. A chest CT with contrast may be needed to exclude underlying malignancy if this finding continues. Dictated by: Branden Hill M.D. on 10/02/2016 at 21:28 PROCEDURE: CT CHEST WITHOUT CONTRAST ([id number]) INDICATIONS: 56 year-old female with cough, right greater than left bibasilar pulmonary opacities on chest radiograph. TECHNIQUE: Noncontrast 5 mm thick sections acquired from the pulmonary apices to the posterior costophrenic angles. 7 mm thick coronal and sagittal MIP reformats were then acquired. For radiation dose reduction, the following was used: automated exposure control, adjustment of mA and/or kV according to patient size. COMPARISON: [facility], CR, XR CHEST 1VW (PORTABLE), 10/02/2016, 21: 01. [facility], CT, CT CHEST WO CON, 07/31/2016, 13:25. FINDINGS: Image quality: Excellent. Lungs and pleura: There is asymmetric small to moderate dependent right pleural effusion, with adjacent right lung base compressive atelectasis. Patchy airspace opacities are also present in the aerated superior portions of the right lower lobe. Left lung appears clear. No pneumothorax. Central airways appear patent and normal in caliber. Mediastinum: There is mild cardiomegaly. No pericardial effusion. No mediastinal adenopathy by size criteria. Thoracic aorta is normal in size. Main pulmonary artery is prominent in caliber at 3.7 cm diameter. Esophagus is normal in caliber. No hiatal hernia. Bones and chest wall: There is cervicothoracic spine posterior fixation hardware. Patient is status post T11 and T12 laminectomies. No suspicious bony lesions. No vertebral body compression fractures. No axillary or supraclavicular adenopathy by size criteria. Thyroid gland is normal in size. Abdomen: Visualized upper abdominal solid organs and bowel loops appear normal in the absence of contrast. Multiple surgical clips are situated around the gastroesophageal junction. IMPRESSION: 1. Small to moderate dependent right pleural effusion is of uncertain etiology, causing right lung base compressive atelectasis. 2. Patchy airspace opacities within the superior segment of the right lower lobe , likely early pneumonia. 3. Prominent main pulmonary artery, consistent with background pulmonary arterial hypertension. Dictated by: Bobo Jenkins M.D. on 10/03/2016 at 18:37 Approved by: Bobo Jenkins M.D. on 10/03/2016 at 18:46 ECG 12 Lead Sinus Tachycardia, HR 108 Cardiac Echo Impression Echocardiogram Report Name: YOLIS LOBATO EStudy Date : 10/07/2016 Height: 68 in Hospital Exam Location: [facility] Weight: 25 0 lb Gender: Female BSA: 2.2 m2 : 1960 Age: 56 yrs BP: 121/73 mmHg Reason For Study: Endocarditis Ordering Physician: Colton Eli Performed By: Francine Fair Referring Physician: Dr. Reggie Mitchell Interpretation Summary The left ventricle is mildly dilated. The ejection fraction is estimated to be 60-65%. There has been no significant change in LV EF since the previous study. The right ventricle is grossly normal size. The right ventricular systolic function is normal. There is mild to moderate tricuspid regurgitation. Compared to the prior echo exam, there has been an increase in TR severity. Right ventricular systolic pressure is estimated to be 40 mmHg plus the clinically estimated CVP which cannot be estimated on this exam. Compared to the prior echo exam, there has been an increase in the severity of pulmonary hypertension. No obvious valvular vegetation seen. Consider STEFAN, if clinical suspicion for endocarditis is high. Brief History Yolis Lobato is a 55 year old morbidly obese female with a complex medical history including recent CVA x2, chronic respiratory failure secondary to COPD, obstructive asthma, CHF, type II diabetes mellitus, diabetic neuropathy, seizure disorder and bipolar disorder who presents with shortness of breath starting 1 week ago. She has associated productive cough with green sputum and wheezing that started 4 days ago. She notes that she is on 3L O2 at home and uses duonebs three times per day, but has needed to increase the frequency to four times daily. She uses trilogy at night for sleep. The patient was admitted to [facility] due to pneumonia and sepsis from July 23-August 14 and feels like her symptoms today are similar to that time. She denies any fever, chills, nausea, vomiting, abdominal pain, diarrhea. She does note she hasn't had a bowel movement in 5 days. Hospital Course Yolis Lobato is a 55 year old morbidly obese female with a complex medical history including recent CVA x2, chronic respiratory failure secondary to COPD, obstructive asthma, CHF, and obesity hypoventilation who presents with shortness of breath. Admitted for HCAP, group A Strep bacteremia, and COPD exacerbation. Chest Pressure, ongoing for 3 days -- Pt has repeatedly c/p chest pressure and associated dyspnea, was treated for COPD and pectoralis muscle spasm -- No overnight tele events, no new EKG findings. -- Patient underwent a nuclear stress test in the a.m. of discharge, stress test showed no abnormal findings per preliminary report from Dr. Casey Asthma/COPD exacerbation, acute. Improving - Patient has a history of asthma and/or COPD, but is a lifetime nonsmoker. Likely long-term asthmatic who developed a fixed defect on PFTs. Likely in exacerbation due to HCAP. - Continue Duoneb q4hwa - Budesonide nebulizer BID - Continue O2 by nasal cannula, wean as tolerated. - prednisone 20 mg by mouth daily 4 days was given Group A strep pyogenes bacteremia, acute, present on admission -Appreciate infectious disease consultation and will switch from Levaquin to IV Rocephin to cover this entity. -Additional blood cultures have been obtained and echocardiogram showed worsened TR, EF 60-65%, increased pulm HTN at 40 mmHg but no endocarditis. --Blood cultures have been no growth to date -- Discussed discharge antibiotics with Dr. Yen. -- "Discharge antibiotic might reasonably include Keflex 500 q.i.d. to complete an additional six days or so of therapy to finish out two weeks of treatment." -- It appears that patient was given a prescription for Keflex 500 twice a day had dependent discharge, she did not leave until later in the evening around 5 PM. I will call this into her pharmacy in the a.m. Left pectoralis muscle spasm acute -- Flexeril 10 mg tid prn when necessary Chronic Left Foot MTP Ulcer poa -The culture of her chronic left foot MTP ulcer shows group B strep agalactiae. -- Patient was treated with ceftriaxone IV during this hospital admission Healthcare associated pneumonia. Present on admission, active She was hospitalized from July 23 - August 13 here for the same. Large autoimmune and fungal workup was done, essentially negative. Patient denies any aspiration. - Appreciate pulmonary consultation. IV vancomycin and IV Zosyn are discontinued and Levaquin was continued. Patient has been switched to IV Rocephin for group A strep bacteremia and will continue with this as broad- spectrum antibiotic for possible pneumonia. - Procalcitonin, sputum culture, urinary strep pneumonia and legionella antibodies, MRSA PCR and respiratory viral PCR were all nonsignificant. - Incentive Spiromter, Acapella and Chest Physiotherapy - CT of chest without contrast (Of note patient cannot tolerate IV contrast) shows small to moderate dependent right pleural effusion of uncertain etiology causing right lung base compressive atelectasis. Patchy airspace opacities with this. Segment of the right lower lobe, possible early pneumonia. Along with prominent main pulmonary artery consistent with background pulmonary arterial hypertension. -- Pulmonology was consulted and did recommend "Recommend chest CT in 6 weeks to document further resolution of her pneumonia.:" -- We will recommend that the PCP repeats chest CT in 6 weeks Insulin-dependent diabetes mellitus with peripheral neuropathy. Uncontrolled - Patient needed 60 units of long-acting and 60 units of mealtime insulin to bring her sugars under control during this admission due to prednisone -- Patient is asked to resume her home regimen at discharge Hypokalemia, chronic Patient has chronic hypokalemia and on supplementation. Currently normal on admission. - Monitor on telemetry - Home potassium continued. Requests liquid potassium and not pill form or IV form of potassium. Constipation, Present on admission, Chronic Last Bowel movement 5 days prior to admission. No pain with examination at time of admission. Patient typically takes Miralax and dulcolax when constipated. - Miralax and dulcolax scheduled Restrictive lung disease secondary to obesity hypoventilation/KENAN, chronic. Presumed stable - Patient has own Trilogy for use History of seizures/Restless Leg syndrome, chronic. Presumed stable Patient mentions she's been working with outpatient doc to decrease medication use and has stopped Topamax. - Currently taking Lamotrigine 350mg BID. Mentions she's supposed to titrate to 300 mg BID 10/05/16. -- We asked patient to continue her current tapering regimen as recommended to her by her neurologist -- Due to EMR problems, this medication has got deleted from her discharge reconciliation. I personally asked patient at the time of discharge to remain on her current tapering regimen that was recommended to her ADD, presumed stable - Continue Adderall BID (0830, 1500). - Resume home dosing of Vyvanse here Left plantar chronic skin ulcers -Wound care consulted to evaluate and treat foot ulcerations -Was cultured on October 06 and growing group B strep agalactiae Seizure d/o chronic stable -- We will discuss with patient on 10/11 Chronic depression stable -- Patient has asked on 10/10 to adjust her Prozac dose to 30 mg, this has been done -- Verified with pharmacy that this is her current dose Patient Status: Patient is admitted under inpatient status with expected length of stay greater than 2 midnights due to severity of presenting symptoms, risk of adverse event, and complexity of treatment plan. Patient will be discharged home if stress test is clear on 10/11 Resuscitation Status: DNR/DNI VTE Prophylaxis: Sub-Q Heparin (Unfractionated) VTE Mechanical Devices: Intermittant Pneumatic CD Resuscitation Status: DNR/DNI:Do Not Resuscitate/Intubate Exam Vital Signs (Last) Date Time Temp Pulse Resp B/P Pulse Ox O2 Delivery O2 Flow Rate FiO2 10/11/16 12:33 36.7 105 20 149/68 94 Nasal Cannula 2.50 10/11/16 08:28 32 Exam Constitutional: Obese female in no acute distress Head: Normocephalic atraumatic Chest: Some scattered expiratory wheezes posteriorly Cor: Regular rate and rhythm S1-S2 Abdomen: Soft nontender bowel sounds present Extremity: No pedal edema Neuro: Alert and oriented 3 Musculoskeletal: Pectoralis tenderness has improved Test 10/02/16 21:20 10/04/16 09:30 10/07/16 07:10 10/09/16 05:40 Lactic Acid Level 1.8mmol/L (0.4-2.0) Pro-B-Type Natriuretic Peptide 55.10pg/mL (0-249) Procalcitonin 0.09ng/mL (0.00-0.08) Vancomycin Level Trough 10.0mcg/mL Red Blood Count 4.21mil/mm3 (3.90-5.20) Hemoglobin 12.4g/dL (12.0-15.6) Hematocrit 38.4% (35.0-46.0) Mean Corpuscular Volume 91.2fL (81-100) Mean Corpuscular Hemoglobin 29.5pg (27.0-35.0) Mean Corpuscular Hemoglobin Concent 32.3% (32.0-37.0) Red Cell Distribution Width 15.5% (12.3-15.4) Platelet Count 346bil/L (150-400) Neutrophils (%) (Auto) 59.4% (40-74) Lymphocytes (%) (Auto) 27.3% (14-46) Monocytes (%) (Auto) 7.8% (4-12) Eosinophils (%) (Auto) 1.3% (0-5) Basophils (%) (Auto) 0.6% (0-3) Total Bilirubin 0.2mg/dL (0.0-1.2) Aspartate Amino Transf (AST/SGOT) 17U/L (0-50) Alanine Aminotransferase (ALT/SGPT) 19U/L (0-32) Alkaline Phosphatase 83U/L (25-150) Total Protein 6.5g/dL (6.4-8.4) Albumin 4.2g/dL (3.4-5.0) White Blood Count 12.1th/mm3 (3.8-10.1) Sodium Level 136mEq/L (134-144) Potassium Level 4.7mEq/L (3.5-5.2) Chloride Level 92mEq/L (97-108) Carbon Dioxide Level 25mmol/L (18-29) Blood Urea Nitrogen 30mg/dL (6-24) Creatinine 0.83mg/dL (0.57-1.00) Estimat Glomerular Filtration Rate 103mL/min (>59) Glucose Level 363mg/dL (60-99) Calcium Level 9.6mg/dL (8.5-10.1) Troponin T < 0.010ug/L (0.0-0.011) Test 10/09/16 10:55 Urine Color Yellow (YELLOW) Urine Appearance Hazy (CLEAR,HAZY) Urine pH 6.0 (5.0-8.0) Urine Specific [place] 1.020 (1.003-1.035) Urine Protein Tracemg/dL (NEG,TRACE) Urine Glucose (UA) 1000mg/dL (NEGATIVE) Urine Ketones Negativemg/dL (NEGATIVE) Urine Occult Blood Negative (NEGATIVE) Urine Nitrite Negative (NEGATIVE) Urine Bilirubin Negative (NEGATIVE) Urine Urobilinogen Normalmg/dL (NORMAL) Urine Leukocyte Esterase Negative (NEGATIVE) Urine RBC 0-2/hpf (0-2) Urine WBC 0-5/hpf (0-5) Urine Epithelial Cells Occasional/hpf (NONE-MOD) Urine Crystals None seen (NONE SEEN) Urine Bacteria Moderate/hpf (NONE-FEW) Urine Hyaline Casts None/lpf (NONE) Urine Granular Casts None seen (NONE SEEN) Urine Waxy Casts None seen (NONE SEEN) Urine Red Blood Cell Casts None seen (NONE SEEN) Urine White Blood Cell Casts None seen (NONE SEEN) Urine Mucus None seen (None Seen) Urine Trichomonas None seen (NONE SEEN) Urine Yeast Few (NONE SEEN) Urinalysis Comment None Urine Culture Reflexed Indicated Discharge Medications Discharge Medications Aripiprazole (Abilify) 10 Mg Tablet 10 MG PO HS (Reported) Aspirin (Aspirin) 325 Mg Tablet 325 MG PO DAILY Prescribed by: MARIA ELENA VILLA DO Budesonide/Formoterol 160-4.5 mcg Inh (Symbicort 160-4.5 mcg Inh) 120 Puff Inhaler 2 PUFF INHALATION BID (Reported) Cephalexin (Keflex) 500 Mg Capsule 500 MG PO QID Prescribed by: BRIANNA CHING DO Dextroamphetamine/Amphetamine (Amphetamine Mixed Salts) 30 Mg Tablet 30 MG PO BID (Reported) Duloxetine (Duloxetine) 60 Mg Capsule.dr 60 MG PO DAILY (Reported) Fenofibrate Nanocrystallized (Fenofibrate) 48 Mg Tablet 48 MG PO DAILY (Reported ) Fluoxetine (Fluoxetine) 10 Mg Tablet 30 MG PO DAILY Prescribed by: BRIANNA CHING DO Furosemide (Furosemide) 80 Mg Tab 120 MG PO AM (Reported) Lisdexamfetamine Dimesylate (Vyvanse) 70 Mg Capsule 70 MG PO QAM (Reported) Loratadine (Claritin) 10 Mg Capsule 10 MG PO QAM (Reported) Multivit with Calcium,Iron,Min (Therapeutic M) 1 Each Tablet 1 EACH PO QAM ( Reported) Nystatin (Nystatin) 60 Applic/15 Gm Cream 1 APPLIC TOPICAL BID Prescribed by: RENETTA ALMAGUER MD Potassium Chloride (Potassium Chloride) 20 Meq/15 Ml Liquid 20 MEQ PO BID Prescribed by: RENETTA ALMAGUER MD Simvastatin (Simvastatin) 80 Mg Tablet 80 MG PO HS (Reported) Tiotropium [place] (Spiriva) 18 Mcg Cap.w.dev 18 MCG IH HS (Reported) Topiramate (Topamax) 50 Mg Tablet 50 MG PO BID (Reported) As needed Albuterol HFA (Proair HFA) 8.5 Gm Hfa.aer.ad 2 PUFFS IH Q4H PRN PRN For Shortness of Breath (Reported) Albuterol Neb Soln (Albuterol Neb Soln) 2.5 Mg/3 Ml Vial.neb 2.5 MG IH DAILY PRN PRN For Shortness of Breath (Reported) Azelastine HCl (Azelastine HCl) 137 Mcg/0.137 Ml [place].pump 2 SPRAY NASAL BID PRN PRN prn (Reported) Fluticasone Propionate (Fluticasone Propionate Nasal) 16 Gm [place].susp 2 SPRAY NS BID PRN PRN allergy symptoms (Reported) Insulin Human Lispro (HumaLOG U100 Insulin Vial) 100 Unit/Ml Unit 1 UNIT SUBQ DIRECTED PRN PRN OTHER Check blood sugars before meals and at bedtime. Use correction factor only before meals. Blood Sugar Lispro Correction: <151, 0 units; 151-175, 1 unit; 176-200, 2 units; 201-225, 3 units; 226-250, 4 units; 251-275, 5 units; 276-300 , 6 units; 301-325, 7 units; 326-350, 8 units; 351-375, 9 units; 376-400, 10 units; >400, 12 units. Prescribed by: BRIANNA CHING DO Insulin Regular, Human (HUMulin-R U-500 Insulin Vial) 500 Unit/1 Ml Vial 1 UNIT SUBQ DIRECTED PRN PRN OTHER Prescribed by: BRIANNA CHING DO Ipratropium/Albuterol Sulfate (Iprat-Albut 0.5-3(2.5) mg/3 mL Inhalant Soln) 3 Ml Ampul.neb 3 ML IH TID PRN PRN For Shortness of Breath (Reported) Additional med instructions Please see PCP in one week Please skip lucien time insulin if you are skipping meals Followup Plan Follow-up plan F/U with PCP in one week Repeat Chest CT in 6 weeks for f/u of Pneumonia f/u with Dr. Cervantes on 10/18/16 as previously scheduled Discharge Diet: Heart Healthy, Diabetic Discharge Activity: No restrictions Follow-[facility] Provider[facility] Follow-up with PCP in: 1 week (3-5 days,sooner if problems) Time spent Greater than 30 minutes was spent in preparation of discharge with greater than 50% of that time dedicated to patient counseling and coordination of care. Brianna Ching DO Oct 11, 2016 22:46
== END 2016-10-11 18:00 | disposition home or self-care (01) | DRG 194 ==
LOC: SED 20:41 → MPC 23:47
PROVIDERS: ADMIT Internal Medicine; ATTEND Internal Medicine
PROC: 4A033R1 Measurement of Arterial Saturation, Peripheral, Percutaneous Approach (ICD-10-PCS; principal; 2016-10-02)
DX: J15.4 Pneumonia due to other streptococci (principal); J44.1 Chronic obstructive pulmonary disease with (acute) exacerbation; J96.10 Chronic respiratory failure, unspecified whether with hypoxia or hypercapnia; E66.2 Morbid (severe) obesity with alveolar hypoventilation; L97.429 Non-pressure chronic ulcer of left heel and midfoot with unspecified severity; R78.81 Bacteremia; I50.30 Unspecified diastolic (congestive) heart failure; Z79.82 Long term (current) use of aspirin; Z79.4 Long term (current) use of insulin; J45.998 Other asthma; G40.909 Epilepsy, unspecified, not intractable, without status epilepticus; F31.9 Bipolar disorder, unspecified; Z86.718 Personal history of other venous thrombosis and embolism; Z86.73 Personal history of transient ischemic attack (TIA), and cerebral infarction without residual deficits; Y95 Nosocomial condition; E11.42 Type 2 diabetes mellitus with diabetic polyneuropathy; E87.6 Hypokalemia; K59.00 Constipation, unspecified; Z66 Do not resuscitate; Z68.36 Body mass index [BMI] 36.0-36.9, adult; G25.81 Restless legs syndrome; E11.65 Type 2 diabetes mellitus with hyperglycemia; B95.61 Methicillin susceptible Staphylococcus aureus infection as the cause of diseases classified elsewhere; M62.838 Other muscle spasm; F32.9 Major depressive disorder, single episode, unspecified